=== PATIENT | male | born 1965 | race Caucasian/White ===

== ENCOUNTER → 2023-05-10 09:08 | Outpatient (BNVA) | payer MEDICAID, SELFPAY | PROVIDERS: Visit Provider Family Medicine Adult Medicine | DX: E11.9 Type 2 diabetes mellitus without complications (principal); I10 Essential (primary) hypertension | CPT/HCPCS: 80053; 80061; 83036; 84443; 85025 ==

== ENCOUNTER → 2023-08-12 14:08 | Outpatient (BNVA) | payer MEDICAID, SELFPAY | PROVIDERS: Referring Provider Family Medicine Adult Medicine; Visit Provider Internal Medicine Pulmonary Disease | DX: R06.09 Other forms of dyspnea (principal); F17.210 Nicotine dependence, cigarettes, uncomplicated; Z12.2 Encounter for screening for malignant neoplasm of respiratory organs | CPT/HCPCS: 99204 ==

== ENCOUNTER 2023-08-20 08:37 | Outpatient (CLI) | payer MEDICAID, SELFPAY ==
--- NOTE | 2023-08-20 09:15 | CT_ITS ---
WS: [id number] LDCT LUNG CANCER SCREENING TECHNIQUE: Noncontrast CT of the chest with coronal and sagittal reformatted images. CLINICAL INFORMATION: Cancer Screen COMPARISON: None. DLP: 53.99 mGy.cm DIvol: Mean CTDIvol: 0.80 (mGy) All CT scans at [facility] use at least one of these dose optimization techniques: automat ed exposure control; mA and/or kV adjustment per patient size (includes targeted exams where dose is matched to clinical indication); or iterative reconstruction. FINDINGS: Advanced chronic emphysematous changes. Spiculated LEFT hilar lesion measuring 10 x 11 mm. Additional suspicious LEFT perihilar lesion measuring 11 mm. Endobronchial thickening with micronodul arity involving the LEFT hilar bronchus. Perihilar nodules are suspicious for neoplasm and recommend further evaluation with PET/CT. Additional tiny 4 mm nodule RIGHT lower lobe near the diaphragm. A few tiny subpleural nodules LEFT l ower lobe. Mild aortic calcification. Normal caliber thoracic aorta. No mediastinal or hilar lymphadenopathy. No axillary lymphadenopathy. Subsegmental atelectasis RIGHT lower lobe. Partially visualized multicystic kidneys. Mild thoracic curve. IMPRESSION: CT/CT lung screening [id number] LUNG-RADS: 4B-Suspicious FOLLOW UP: PET/CT recommended
== END 2023-08-20 08:38 | disposition home or self-care (01) ==
LOC: RAD 08:37
PROVIDERS: Visit Provider Internal Medicine Pulmonary Disease
DX: Z12.2 Encounter for screening for malignant neoplasm of respiratory organs (principal); F17.210 Nicotine dependence, cigarettes, uncomplicated
CPT/HCPCS: 71271

== ENCOUNTER → 2023-09-23 08:11 | Outpatient (BNVA) | payer MEDICAID, SELFPAY | PROVIDERS: PCP Family Medicine Adult Medicine; Visit Provider Internal Medicine Pulmonary Disease | DX: Z12.2 Encounter for screening for malignant neoplasm of respiratory organs (principal); R06.09 Other forms of dyspnea; F17.219 Nicotine dependence, cigarettes, with unspecified nicotine-induced disorders | CPT/HCPCS: 99214 ==

== ENCOUNTER 2023-09-23 09:21 | Outpatient (CLI) | payer MEDICAID, SELFPAY | END 2023-09-23 09:22 | disposition home or self-care (01) | LOC: LAB 09:23 | PROVIDERS: PCP Family Medicine Adult Medicine; Visit Provider Internal Medicine Pulmonary Disease | DX: Z01.89 Encounter for other specified special examinations (principal) | CPT/HCPCS: 36415 ==

== ENCOUNTER 2023-09-24 08:48 | Outpatient (CLI) | payer MEDICAID, SELFPAY ==
[2023-09-24 09:19] VITALS: PULSE 86; RESP 18; O2SAT 99
[2023-09-24] MEDS: albuterol 2.5 mg/3 mL Neb INHALATION (09:19)
[2023-09-24 09:24] VITALS: PULSE 81
== END 2023-09-24 08:49 | disposition home or self-care (01) ==
LOC: RT 08:48
PROVIDERS: PCP Family Medicine Adult Medicine; Visit Provider Internal Medicine Pulmonary Disease
DX: J43.9 Emphysema, unspecified (principal); F17.210 Nicotine dependence, cigarettes, uncomplicated; R94.2 Abnormal results of pulmonary function studies
CPT/HCPCS: 94060; 94618; 94726; 94729; J7613

== ENCOUNTER 2023-12-20 08:34 | Outpatient (CLI) | payer MEDICAID, SELFPAY ==
--- NOTE | 2023-12-20 09:00 | CT_ITS ---
WS: [id number] CT chest wo con [id number] HISTORY: Abnormal CT with patient decline PET scan TECHNIQUE: Axial imaging performed through the thorax. Coronal and sagittal reformats are submitted. All CT scans at [facility] use at least one of these dose optimization techniques: automated exposure control; mA and/or kV adjustment per patient size (includes targeted exams where dose is mat ched to clinical indication); or iterative reconstruction. CONTRAST: None DLP: 279.41 mGy.cm COMPARISON: 08/20/2023 Lungs and central airway: Marked hyperexpansion from centrilobular emphysema. Numerous bulla and bleb are identified. Central LEFT upper lobe nodule is reidentified. This nodule has decreased in size no w measuring 7.5 mm. The additional subsolid nodule in the LEFT upper lobe has actually increased in s ize measuring 10 x 9 mm. Very mild bronchial thickening medial LEFT upper lobe, image 42 of series 4 measures 8 x 4 mm. No additional suspicious mass or nodule. Pleura: Normal. No pleural effusion. Heart and pericardium: Normal size heart with no pericardial effusion. Mediastinum and jessy: Hilar regions are poorly visualized without IV contrast. No adenopathy identifi ed. Vessels: Mild dilatation of the ascending aorta. Mild atherosclerosis. Normal size pulmonary artery. Chest wall and lower neck: No soft tissue masses. Upper abdomen: Nonobstructing calcifications upper pole LEFT kidney. Bilateral low-attenuation masses within each kidney. Largest mass from the superior anterior LEFT kidney measures 5.6 x 4.0 cm and is of increased density. No adrenal mass. Osseous structures: No destructive process. IMPRESSION: 1. Severe centrilobular emphysema. 2. Central LEFT upper lobe noncalcified nodule has slightly decreased in size now measuring 7.5 mm. Prior measurement 11 mm. 3. Spiculated LEFT upper lobe nodule has slightly increased in size and is now subsolid measuring 10 x 9 mm. Indeterminate part solid pulmonary nodule measuring 10 mm. For a part solid nodule >=6 mm, r ecommend CT at 3-6 months to confirm persistence. If unchanged and a solid component remains <6 mm, a nnual CT should be performed for 5 years. A persistent part solid nodule with a solid component >=6 m m is highly suspicious. 4. New mild bronchial thickening medial LEFT upper lobe. 5. Numerous low-attenuation masses associate with the superior poles of each kidney. These should be further evaluated for possible neoplasm. Cyst versus neoplasm versus complex cyst. Recommend ultraso und evaluation of the kidneys to evaluate for solid mass. 6. If PET/CT cannot be obtained recommend 3-month chest CT follow-up
== END 2023-12-20 08:35 | disposition home or self-care (01) ==
LOC: RAD 08:36
PROVIDERS: PCP Family Medicine Adult Medicine; Visit Provider Family Medicine Adult Medicine
DX: R91.8 Other nonspecific abnormal finding of lung field (principal); J43.2 Centrilobular emphysema; R91.1 Solitary pulmonary nodule; N28.89 Other specified disorders of kidney and ureter
CPT/HCPCS: 71250

== ENCOUNTER 2023-12-25 09:28 | Outpatient (CLI) | payer OTHER, SELFPAY ==
[2023-12-25 09:46] VITALS: PULSE 93; RESP 18; O2SAT 99
[2023-12-25] MEDS: albuterol 2.5 mg/3 mL Neb INHALATION (09:46)
[2023-12-25 09:51] VITALS: PULSE 95
== END 2023-12-25 09:29 | disposition home or self-care (01) ==
LOC: RT 09:28
PROVIDERS: PCP Family Medicine Adult Medicine; Visit Provider Dermatology
DX: J98.9 Respiratory disorder, unspecified (principal)
CPT/HCPCS: 94060; J7613

== ENCOUNTER 2024-01-03 11:03 | Outpatient (CLI) | payer MEDICAID, SELFPAY ==
--- NOTE | 2024-01-03 11:45 | US_ITS ---
WS: [id number] RENAL ULTRASOUND HISTORY: renal masses COMPARISON: None available. TECHNIQUE: 2-D and color Doppler imaging of the kidney submitted. Right kidney: 11.0 cm x 6.2 cm x 5.4 cm. Cortex: 0.9 cm Kidneys normal size but there is diffuse increased echogenicity and cortical atrophy. There are multi ple small cortical cysts. No solid masses. The largest cyst measures 2.2 x 2.7 x 2.1 cm in the superi or pole. Left kidney: 10.8 cm x 6.7 cm x 7.1 cm. Cortex: 1.1 cm Kidneys normal size. Poorly visualized and imaged kidney. There are multiple cysts identified. The la rgest in the superior pole measures 5.1 x 5.2 x 4.7 cm. The cortex is poorly visualized. No obstructi on. Increased echogenicity. Aorta: Normal. Urinary Bladder: Nondistended bladder. US/US renal BI* [id number] IMPRESSION: 1. Limited quality evaluation of the kidneys. 2. Kidneys appear normal size with diffuse cortical thinning and increased ech ogenicity suggesting chronic medical renal disease. LEFT kidney is very poorly visualized. 3. Bilateral renal cysts. No solid masses.
== END 2024-01-03 11:04 | disposition home or self-care (01) ==
LOC: RAD 11:03
PROVIDERS: PCP Family Medicine Adult Medicine; Visit Provider Family Medicine Adult Medicine
DX: N28.89 Other specified disorders of kidney and ureter (principal); N28.1 Cyst of kidney, acquired
CPT/HCPCS: 76770

== ENCOUNTER → 2025-01-28 09:30 | Outpatient (BNVA) | payer MEDICAID, SELFPAY | PROVIDERS: PCP Family Medicine; Visit Provider Family Medicine | DX: Z13.6 Encounter for screening for cardiovascular disorders (principal); Z12.5 Encounter for screening for malignant neoplasm of prostate | CPT/HCPCS: 80053; 80061; 84153; 84439; 84443; 85025 ==

== ENCOUNTER 2025-02-19 11:40 | Outpatient (CLI) | payer MEDICAID, SELFPAY ==
[2025-02-19] MEDS: iohexol 350 mg/mL 500 mL Btl (per mL) IV (13:13)
[2025-02-19] MEDS: iohexol 350 mg/mL 500 mL Btl (per mL) PO (13:13)
--- NOTE | 2025-02-19 14:15 | CT_ITS ---
WS: [id number] CT CHEST, ABDOMEN AND PELVIS WITH AND WITHOUT CONTRAST HISTORY: kidney and lung mass TECHNIQUE: Contiguous 3 mm axial imaging performed through the chest, abdomen and pelvis with IV contrast, oral contrast has been provided. Coronal and sagittal reformats chest. Coronal and sagittal reformats through the abdomen and pelvis. All CT scans at [facility] use at least one of these dose optimization techniques: automated exposure control; mA and/or kV adjustment per patient size (includes targeted exams where dose is matched to clinical indication); or iterative reconstruction. CONTRAST: Omnipaque 350; 100 mL IV. DLP: 1410.79 mGy.cm COMPARISON: 12/20/2023, 08/20/[address]: Moderate centrilobular emphysema. LEFT upper lobe well-circumscribed nodule has completely resolved. Subsolid opacification also in the LEFT upper lobe measuring 9 x 8 mm and is been stable since 08/20/2023. LEFT upper lobe bronchial wall thickening has resolved. The remaining lungs demonstrate mosaic attenuation from areas of air trapping. No additional mass or nodule. Mild atherosclerosis aorta. Normal sized pulmonary artery. Normal size heart. No pathologic lymph nodes. No pericardial or pleural effusions. Abdomen CT: Liver and gallbladder are negative. Spleen is normal. Negative pancreas. No adrenal mass. Numerous bilateral renal cysts of variable density. Majority of the cysts are simple cyst. The largest cyst from the anterior superior LEFT kidney measures 5.8 x 4.7 cm and is of variable density. Mixed attenuation mass does not significantly enhance with IV contrast. Similar high attenuation mass in the lower pole LEFT kidney does not enhance. Nonobstructing 12 mm calcification lower pole LEFT kidney. No enhancing masses are identified. Atherosclerosis aorta. No ascites or adenopathy. No GI tract obstruction. Normal appendix. Pelvic CT: No free fluid or adenopathy in the pelvis. Urinary bladder is negative. No destructive bone lesions. CT/CT ch abdpel wo/w [id number] IMPRESSION: 1. Complete resolution well-circumscribed LEFT upper lobe pulmonary nodule sin ce 12/20/2023. 2. Stable residual subsolid nodule LEFT upper lobe measures 9 x 8 mm. 3. Numerous bilateral nonenhancing renal cystic masses. No solid or enhancing mass identified. No obstruction of the kidney. 4. Nonobstructing 12 mm calcification lower pole LEFT kidney. 5. No GI tract obstruction.
== END 2025-02-19 11:41 | disposition home or self-care (01) ==
LOC: RAD 11:41
PROVIDERS: PCP Family Medicine; Visit Provider Family Medicine
DX: R91.8 Other nonspecific abnormal finding of lung field (principal); N28.89 Other specified disorders of kidney and ureter; J43.2 Centrilobular emphysema; I70.0 Atherosclerosis of aorta; N28.1 Cyst of kidney, acquired
CPT/HCPCS: 71260; 74178

== ENCOUNTER 2025-04-24 07:39 | Emergency (ER) | payer MEDICAID, SELFPAY ==
[2025-04-24] VITALS (16 sets, daily range): BP systolic 110–146; BP diastolic 66–97; PULSE 70–110; RESP 7–25; TEMP 36.8; O2SAT 85–95; BMI 20.9
--- NOTE | 2025-04-24 07:43 | ECG_ITS ---
[facility] Date: 2025-04-24 Pat Name: Crispin Yan Department: Room: Gender: Male Checking Clerk: : [id number] Requested By: Daya Watson Order Number: [id number] Comfort MD: Luke Ross M.D. Measurements Intervals [place] Rate: 99 P: 79 CA: 168 QRS: 2 QRSD: 81 T: 75 QT: 317 QTc: 407 Interpretive Statements SINUS RHYTHM WITH SINUS ARRHYTHMIA POSSIBLE LEFT ATRIAL ENLARGEMENT [-0.1mV P-WAVE IN V1/V2] LOW QRS VOLTAGE IN PRECORDIAL LEADS [QRS DEFLECTION < 1.0 mV IN CHEST LEADS] POSSIBLE RIGHT VENTRICULAR CONDUCTION DELAY [RSR (QR) IN V1/V2] No previous ECG available for comparison Electronically Signed On 04-25-2025 22:30:38 CDT by Luke Ross M.D. [email or web address]
--- NOTE | 2025-04-24 07:43 | XRR_ITS ---
PROCEDURE INFORMATION: Exam: XR Chest Exam date and time: 04/24/2025 7:51 AM Age: 60 years old Clinical indication: Pain; Cough and dyspnea; Chest pressure; Additional info: Cp TECHNIQUE: Imaging protocol: Radiologic exam of the chest. Views: 1 view. COMPARISON: CT ch abdpel wo/w [id number] 02/19/2025 1:04 PM FINDINGS: Lungs: Severe centrilobular emphysematous changes are present. There is no evidence of focal pulmonary consolidation. Left lung compressive atelectasis. Pleural spaces: There is a large left pneumothorax measuring 6.8 cm in the left lung apex. Heart/Mediastinum: Mild mediastinal shift to the right side. Bones/joints: Mild degenerative disease of bilateral acromioclavicular joints. XR/XR chest 1V portable [id number] IMPRESSION: Large left pneumothorax with mild mediastinal shift to the right.
--- NOTE | 2025-04-24 07:46 | PC.NURSE ---
PT SATING 88% ON ROOM AIR. PT PLACED ON 2L NASAL CANNULA AND SATING 92%.
--- OUTSIDE RECORDS SUMMARY | 2025-04-24 07:46 | XMS_ITS | Clinical Summary ---
Author Organization [facility] Facility Address [address] [address] Care Team Providers Care Chief Media Officer Name Role Phone Rocky Fuentes Primary Care Provider [phone] Encounters Date Type Department Care Team Description 03/12/2025 Office Communication [facility], [facility] [address] [place] [address] Jenny Russ MD 02/26/2025 Orders Only [facility], [facility] [address] [place] [address] Hypertensive chronic kidney disease, benign, with chronic kidney disease stage I through stage IV, or unspecified; Chronic kidney disease, stage 4 (severe) (HCC) 02/25/2025 Transcribe Orders [facility], [facility] [address] [place] [address] Rocky Fuentes Chronic kidney disease, stage 4 (severe) (HCC) (Primary Dx); Hypertensive chronic kidney disease, benign, with chronic kidney disease stage I through stage IV, or unspecified from Last 3 Months Social History Tobacco Use Types Packs/Day Years Used Date Smoking Tobacco: Never Assessed Sex and Gender Information Value Date Recorded Sex Assigned at Not on file Legal Sex Male 11:26 AM EDT Gender Identity Not on file Sexual Orientation Not on file Plan of Treatment Upcoming Encounters Date Type Department Care Team (Late st Contact Info) Description 09/15/2025 11:20 AM 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 Office Visit [facility], [facility] [address] [place] [address] Jenny Russ MD [address] [place] [address] Health Maintenance Due Date Last Done Comments Hepatitis B Vaccine (1 of 3 - 19+ 3-dose series) 02/09 Pneumococcal Vaccine: 50+ Years (1 of 2 - PCV) 986 Colorectal Cancer Screening: Annual FOBT 02/10/2016 Colorectal Cancer Screening: Colonoscopy 02/10/2016 Colorectal Cancer Screening: Sigmoidoscopy 02/10/2016 Influenza Vaccine (#1) 2025 Insurance Medicaid [place] ([id number]) Care Teams Chief Media Officer Relationship Specialty Start Date End Date Rocky Fuentes [address] [place] [address] [address] [place] [address] PCP - General 02/25/25
--- OUTSIDE RECORDS SUMMARY | 2025-04-24 07:46 | XMS_ITS | Encounter Summary ---
Author Organization [facility] Address [address] [facility] [address] [place] [address] Phone Care Team Providers Care Radio Broadcaster Name Role Phone Rocky Fuetnes Primary Care Provider [phone] Encounter Details Date Type Department Care Team (Late st Contact Info) Description 02/26/2025 Orders Only [facility] [address] [facility] [address] [place] [address] Hypertensive chronic kidney disease, benign, with chronic kidney disease stage I through stage IV, or unspecified; Chronic kidney disease, stage 4 (severe) (HCC) Social History Tobacco Use Types Packs/Day Years Used Date Smoking Tobacco: Never Assessed Sex and Gender Information Value Date Recorded Sex Assigned at Not on file Legal Sex Male 11:26 AM EDT Gender Identity Not on file Sexual Orientation Not on file documented as of this encounter Plan of Treatment Upcoming Encounters Date Type Department Care Team (Late st Contact Info) Description 09/15/2025 11: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 [facility] [address] [place] [address] Jenny Russ MD [address] [place] [address] documented as of this encounter Visit Diagnoses Diagnosis Hypertensive chronic kidney disease, benign, with chronic kidney disease stage I through stage IV, or unspecified Chronic kidney disease, stage 4 (severe) (HCC) documented in this encounter Care Teams Radio Broadcaster Relationship Specialty Start Date End Date Rocky Fuentes [address] [place] [address] [address] [place] [address] PCP - General 02/25/25 documented as of this encounter
--- OUTSIDE RECORDS SUMMARY | 2025-04-24 07:46 | XMS_ITS | Encounter Summary ---
Author Organization [facility] Address [address] [address] Phone Care Team Providers Care Plaster And Stucco Worker Name Role Phone Rocky Fuentes Primary Care Provider [phone] Reason for Referral * Consultation (Routine) - Authorized Specialty Diagnoses / Procedures Referred By Contac t Referred To Contact Nephrology Diagnoses Hypertensive chronic kidney disease, benign, with chronic kidney disease stage I through stage IV, or unspecified Chronic kidney disease, stage 4 (severe) (HCC) Rocky Fuentes [address] [place] [address] [address] [place] [address] Phone: tel: fax: Jenny Russ MD [address] [address] Phone: tel: fax: Referral ID Status Reason Start Date Expiration Date Visits Requested Visits Authorized [id number] Authorized Consult and Treat 02/25/2025 02/25/2026 1 1 Encounter Details Date Type Department Care Team (Late st Contact Info) Description 02/25/2025 Transcribe Orders [facility], 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 [address] [place] [id number] Jenny Russ MD [address] [facility] [address] [place] [address] Scheduled Referrals Name Type Priority Associated Diagnoses Order Schedule Ambulatory referral to Nephrology Outpatient Referral Routine Hypertensive chronic kidney disease, benign, with chronic kidney disease stage I through stage IV, or unspecified Chronic kidney disease, stage 4 (severe) (HCC) Expected: 02/26/2025, Expires: 02/25/2026 documented as of this encounter Visit Diagnoses Diagnosis Chronic kidney disease, stage 4 (severe) (HCC)- Primary Hypertensive chronic kidney disease, benign, with chronic kidney disease stage I through stage IV, or unspecified documented in this encounter Care Teams Plaster And Stucco Worker Relationship Specialty Start Date End Date Rocky Fuentes [address] [place] [address] PCP - General 02/25/25 documented as of this encounter
[2025-04-24 07:54] LABS: Hematocrit 43.5 % (37-53); Hemoglobin 14.30 g/dL (11.27-16.99); Mean Corpuscular HGB Conc 32.9 g/dL (30-55); Mean Corpuscular Hemoglobin 30.0 pg (27-33); Mean Corpuscular Volume 91.4 fl (82-101); Nucleated Red Blood Cells % 0 %; Platelet Count 309 10^3/cmm (157-399); Red Blood Count 4.76 10^6/uL (3.85-5.65); White Blood Count 16.26 10^3/uL (3.29-11.43)
--- NOTE | 2025-04-24 07:55 | W.ED.CHESTPA ---
HPI - Chest Pain General: Chief Complaint: Chest Pain Stated Complaint: chest pain Time Seen by Provider: 04/24/25 07:43 Source: patient and EMS Mode of arrival: EMS Limitations: no limitations History of Present Illness: 60-year-old male states that he woke up this morning having chest pain stating the pain was a sharp pain in the center of his chest states still like someone was punching him his vision was a 9 out of 10 he is given nitro and route he states his pain is now improved. States he had some nausea along with shortness of breath has a history of COPD he denies any increased cough or fever Associated symptoms: Reports dyspnea; Deny abdominal pain, fever(s), nausea or vomiting Related Data Previous Rx's ?Medication ?Instructions ?Recorded albuterol sulfate 90 mcg/actuation 1 inh inhalation QID PRN shortness 01/28/25 aerosol inhaler of breath or wheezing #8.5 grams dapagliflozin propanediol 5 mg 5 mg PO DAILY #90 tabs 01/28/25 tablet (Farxiga) lisinopril 40 mg tablet 40 mg PO DAILY #30 tabs 01/28/25 umeclidinium 62.5 mcg-vilanterol 1 inh inhalation DAILY #60 ea 03/29/25 25 mcg/actuation powdr for inhalation (Anoro Ellipta) Allergies Allergy/AdvReac Type Severity Reaction Status Date / Time No Known Allergies Allergy Verified 01/28/25 08:43 Review of Systems Const: Denies: fever(s), chills, body aches or change in appetite ENMT: Denies: throat pain or dental pain Card: Reports: chest pain Resp: Reports: dyspnea GI: Denies: abdominal pain, nausea, vomiting or diarrhea : Denies: dysuria Musc: Denies: neck pain or back pain Skin/Breast: Denies: rash Neuro: Denies: headache(s) Psych: Denies: depression Royal/Lymph: Denies: easy bruising All/Imm: Denies: urticaria [facility] ED PFSH: Medical History (Updated 04/24/25 @ 08:53 by Daya Watson MD) Severe tobacco use disorder CKD stage 3b, GFR 30-44 ml/min Smoking addiction Bilateral kidney masses Seen on chest CT 12/20/2023, US Renal ordered 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 Social History Smoking and tobacco/nicotine status: current every day tobacco/nicotine user cigarettes Packs smoked per day: 1.5 Years cigarettes smoked: 40 [ Other cigarette details: Started at 19] Quit status (tobacco/nicotine): not considering quitting Second hand smoke exposure: No Alcohol intake: former Substance/Drug Use: never Highest education level completed: 8th Grade Physical Exam Const: COMMON NORMALS: patient oriented x3 HENMT: COMMON NORMALS: normocephalic and atraumatic HEAD & SCALP: normocephalic and atraumatic Eye: COMMON NORMALS: Equal, round and reactive pupils present and EOMs intact bilaterally PUPIL: Yes Equal, round and reactive pupils present Neck/C-Spine: COMMON NORMALS: full ROM and supple Chest: COMMONS NORMALS: normal inspection of the chest and normal palpation of entire chest wall Resp: COMMON NORMALS: normal respiratory effort, No retractions and No use of accessory muscles OTHER: decreased breath sounds on left Cardio: COMMON NORMALS: regular rate, regular rhythm and No murmurs present (Cardio) RATE: regular rate RHYTHM: regular rhythm GI: COMMON NORMALS: Normal to inspection, nondistended, normoactive bowel sounds present, Soft to palpation, non-tender and no masses PALPATION: Yes Soft to palpation Extremity: COMMON NORMALS: normal to inspection and full ROM Neuro: COMMON NORMALS: patient oriented x3, moves all extremities and no focal motor deficits Psych: COMMON NORMALS: mental status grossly normal, Normal thought process present and cooperative THOUGHT PROCESS: Normal thought process present Skin: COMMON NORMALS: no rashes or lesions noted and no wounds GENERAL SKIN EXAM: no rashes or lesions noted Procedures Chest Tube Chest Tube 1: Chest Tube Location: left, mid axillary line and fifth interspace Size of Tube (cm): 14 Chest Tube Prep: Yes betadine prep and sterile drapes applied Local Anesthetic: lidocaine 1% Amount of anesthesia used (mL): 5 Incision Made With: #11 blade Post Procedure: sutured to skin Progress: pig tail catheter Course Vital Signs: Vital signs: Vital Signs Temperature 98.2 F 04/24/25 07:40 Pulse Rate 90 04/24/25 09:15 Respiratory Rate 14 04/24/25 09:15 Blood Pressure 140/86 04/24/25 09:15 Pulse Oximetry 85 L 04/24/25 09:15 Oxygen Delivery Me thod Nasal Cannula 04/24/25 07:45 Oxygen Flow Rate 2 04/24/25 07:45 MDM - Chest Pain Medical Decision Making Patient presents here with spontaneous pneumothorax did place a pigtail catheter with good reexpansion I spoke to surgeon here Dr. Miranda who recommended transfer due to no pulmonology coverage I did speak to [facility] and will transfer there for higher level of care Medical Records I reviewed the patient's medical records. Lab Data I reviewed the patient's lab results. 04/24/25 07:49 04/24/25 07:49 Radiology Impressions Chest X-Ray 04/24/25 08:39 IMPRESSION: Near-complete resolution of the left pneumothorax. Laboratory Results WBC 16.26 10^3/uL (3.29-11.43) H 04/24/25 07:49 RBC 4.76 10^6/uL (3.85-5.65) 04/24/25 07:49 Hgb 14.30 g/dL (11.27-16.99) 04/24/25 07:49 Hct 43.5 % (37-53) 04/24/25 07:49 MCV 91.4 fl (82-101) 04/24/25 07:49 MCH 30.0 pg (27-33) 04/24/25 07:49 MCHC 32.9 g/dL (30-55) 04/24/25 07:49 RDW 15.3 % (12.1-15.1) H 04/24/25 07:49 Plt Count 309 10^3/cmm (157-399) 04/24/25 07:49 MPV 10.4 fL (7.4-10.4) 04/24/25 07:49 Neut % (Auto) 67.1 % 04/24/25 07:49 Lymph % (Auto) 22.9 % 04/24/25 07:49 [place] % (Auto) 7.7 % 04/24/25 07:49 Eos % (Auto) 1.2 % 04/24/25 07:49 Baso % (Auto) 0.7 % 04/24/25 07:49 Neut # (Auto) 10.90 10^3/uL (1.8-7.7) H 04/24/25 07:49 Lymph # (Auto) 3.7 10^3/uL (0.8-4.8) 04/24/25 07:49 [place] # (Auto) 1.3 10^3/uL (0.2-0.9) H 04/24/25 07:49 Eos # (Auto) 0.2 10^3/uL (0.0-0.8) 04/24/25 07:49 Baso # (Auto) 0.1 10^3/uL (0.0-0.1) 04/24/25 07:49 Nucleated RBC % (auto) 0 % 04/24/25 07:49 Nucleated RBCs # 0.0 /100WBC 04/24/25 07:49 Sodium 136 mmol/L (136-145) 04/24/25 07:49 Potassium 4.4 mmol/L (3.5-5.1) 04/24/25 07:49 Chloride 102 mmol/L (98-107) 04/24/25 07:49 Carbon Dioxide 19 mmol/L (22-29) L 04/24/25 07:49 Anion Gap 19.4 (5-19) H 04/24/25 07:49 BUN 47 mg/dL (6-20) H 04/24/25 07:49 Creatinine 2.4 mg/dL (0.7-1.2) H 04/24/25 07:49 GFR Calculation 27.9 mL/min (90-130) L 04/24/25 07:49 Glucose 190 mg/dL (65-115) H 04/24/25 07:49 Calculated Osmolality 299 mOsm/kg (285-295) H 04/24/25 07:49 Calcium 8.8 mg/dL (8.5-10.5) 04/24/25 07:49 Total Bilirubin 0.2 mg/dL (0.15-1.2) 04/24/25 07:49 AST 32 U/L (0-40) 04/24/25 07:49 ALT 40 U/L (0-41) 04/24/25 07:49 Alkaline Phosphatase 92 U/L (40-130) 04/24/25 07:49 Troponin T Baseline 16 ng/L (0-15) H 04/24/25 07:49 Total Protein 6.7 g/dL (6.6-8.7) 04/24/25 07:49 Albumin 4.3 g/dL (3.5-5.2) 04/24/25 07:49 Globulin 2.4 g/dL (1.3-4.6) 04/24/25 07:49 Lipase 91 U/L (13-60) H 04/24/25 07:49 All radiology interpretation(s) finalized by discharge EKG Data EKG 1: I personally reviewed and interpreted this EKG as follows: EKG interpretation date: 04/24/25 EKG interpretation time: 07:45 Interpretation: nsr hr [address] elevation qrs 81 qtc 373 Discharge Plan Discharge Patient Disposition: Xfer Short-Term Hosp Clinical Impression: Pneumothorax Condition: Stable Referrals: Rocky Fuentes MD [Primary Care Provider, [facility]] Print Language: Greenlandic Coding Level of Care Code ED Ballet Teacher for [facility]
[2025-04-24 08:15] LABS: Troponin(5th) Baseline 16 ng/L (0-15)
[2025-04-24 08:17] LABS: Alanine Aminotransferase 40 U/L (0-41); Albumin Level 4.3 g/dL (3.5-5.2); Alkaline Phosphatase 92 U/L (40-130); Anion Gap 19.4 (5-19); Aspartate Amino Transferase 32 U/L (0-40); Blood Urea Nitrogen 47 mg/dL (6-20); Calcium 8.8 mg/dL (8.5-10.5); Carbon Dioxide 19 mmol/L (22-29); Chloride 102 mmol/L (98-107); Creatinine Clr Calc Pharmacy 34.3544; Globulin 2.4 g/dL (1.3-4.6); Glucose 190 mg/dL (65-115); Lipase 91 U/L (13-60); Osmolality Calculated 299 mOsm/kg (285-295); Potassium 4.4 mmol/L (3.5-5.1); Sodium 136 mmol/L (136-145); Total Protein 6.7 g/dL (6.6-8.7)
[2025-04-24] MEDS: HYDROmorphone 0.5 MG/0.5 ML INJ 1 MG IVP ×2 (08:36→11:43)
--- NOTE | 2025-04-24 08:39 | XRR_ITS ---
PROCEDURE INFORMATION: Exam: XR Chest Exam date and time: 04/24/2025 8:44 AM Age: 60 years old Clinical indication: Shortness of breath; Additional info: Lt pneumothorax; Post lt chest tube insertion TECHNIQUE: Imaging protocol: Radiologic exam of the chest. Views: 1 view. COMPARISON: CR (CHEST, ) 04/24/2025 7:51 AM FINDINGS: Tubes, catheters and devices: Left pleural pigtail drain is seen in the left mid chest. Lungs: Left lower lung zone atelectasis. There is no evidence of focal pulmonary consolidation. Pleural spaces: Near-complete resolution of the left pneumothorax. Heart/Mediastinum: Unremarkable. No cardiomegaly. Vasculature: There are aortic arch calcifications. Bones/joints: Mild curvature of the thoracic spine convex to the right. XR/XR chest 1V portable [id number] IMPRESSION: Near-complete resolution of the left pneumothorax.
[2025-04-24] MEDS: LORazepam 1 MG/0.5 ML injection 0.5 MG IVP (09:12)
[2025-04-24] MEDS: morphine 4 mg/mL SDV 1 mL IVP (09:12)
[2025-04-24 09:56] LABS: Troponin 5 2HR 22.19 ng/L (0-15); Troponin 5 2HR Delta 6.19 ABS# (0-10)
--- NOTE | 2025-04-24 09:56 | ECG_ITS ---
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 Measurements Intervals [place] Rate: 75 P: 74 AL: 171 QRS: -2 QRSD: 92 T: 73 QT: 368 QTc: 412 Interpretive Statements SINUS RHYTHM POSSIBLE RIGHT VENTRICULAR CONDUCTION DELAY [RSR (QR) IN V1/V2] Compared to ECG 04/24/2025 07:45:50 NO SIGNIFICANT CHANGE Electronically Signed On 04-26-2025 14:02:21 CDT by Luke Ross M.D. [email or web address]
== END 2025-04-24 11:46 | disposition short-term general hospital (02) ==
PROVIDERS: Emergency Provider Emergency Medicine; PCP Family Medicine
DX: J93.9 Pneumothorax, unspecified (principal); F17.210 Nicotine dependence, cigarettes, uncomplicated; E11.22 Type 2 diabetes mellitus with diabetic chronic kidney disease; I12.9 Hypertensive chronic kidney disease with stage 1 through stage 4 chronic kidney disease, or unspecified chronic kidney disease; N18.32 Chronic kidney disease, stage 3b; J44.9 Chronic obstructive pulmonary disease, unspecified
CPT/HCPCS: 71045; 80053; 83690; 84484; 85025; 93005; 96374; 96375; 96376; 99285; J1171; J2060; J2270

== ENCOUNTER 2025-05-29 08:21 | Emergency (ER) | payer MEDICAID, SELFPAY ==
--- OUTSIDE RECORDS SUMMARY | 2025-04-24 13:46 | XMS_ITS | Encounter Summary ---
Author Organization [facility] Address [address] [place] [address] Care Team Providers Care Gluing Machine Feeder Name Role Phone Unavailable Primary Care Provider Unavailabl e Reason for Referral * Eval and Treat (Routine) - Closed Specialty Diagnoses / Procedures Referred By Delmar t Referred To Contact Diagnoses Secondary spontaneous pneumothorax Procedures NE OFFICE/OUTPATIENT ESTABLISHED MOD MDM 30 MIN NE OFFICE/OUTPATIENT NEW MODERATE MDM 45 MINUTES Marie Eduardo MD [address] [place] [address] Phone: tel: fax: Referral ID Status Reason Start Date Expiration Date Visits Re quested Visits Authorized [id number] Closed 05/26/2025 05/26/2026 1 1 Reason for Visit * Auth/Cert (Routine) Specialty Diagnoses / Procedures Referred By Delmar t Referred To Contact Internal Medicine Diagnoses Spontaneous Pneumothorax Left (6.8 cm) CHEST TUBE Ebony Aragon MD [address] [place] [address] Phone: tel: fax: [facility] 3D Medical Telemetry [address] [place] [address] Phone: tel: fax: Referral ID Status Reason Start Date Expiration Date Visits Re quested Visits Authorized [id number] 1 1 Encounter Details Date Type Department Care Team (Late st Contact Info) Description 04/24/2025 1:46 PM CDT - 05/26/2025 10:49 AM CDT Hospital Encounter [facility] 4D Surgery Heart Lung [address] [place] [address] Ebony Aragon MD [address] [place] [address] Rocky Gibson Dani, [address] [place] [address] Taryn Lai MD [address] [place] [address] Antolin Begum, [address] [place] [address] Maxine Alvarado MD [address] [place] [address] Edwin Beauchamp MD [address] [place] [address] Shania Posadas MD [address] [facility] [place] [address] Jerry Moreno MD [address] [place] [address] Piyush Niño MD [address] [place] [address] Harmeet Kim MD [address] [place] [address] Duc Camp MD [address] [place] [address] Roel Andujar MD [address] [place] [address] Marie Eduardo MD [address] [place] [address] Secondary spontaneous pneumothorax Discharge Disposition: Home or Self Care Social History Tobacco Use Types Packs/Day Years Used Date Smoking Tobacco: Every Day Cigarettes 0.5 41.8 Started: 1983 Smokeless Tobacco: Never Tobacco Cessation:Ready to Q uit: No; Counseling Given: No Alcohol Use Standard Drinks/Week Comments Never 0 (1 standard drink = 0.6 oz pur e alcohol) Feeling Safe Answer Date Recorded Are you in a relationship wi th someone who hurts you emotionally and/or physically? No 04/24/2025 Food Insecurity Answer Date Recorded Patient needs follow up regardin 04/24/2025 Transportation Needs Answer Date Record ed Patient needs follow up regardin 04/24/2025 Utility Needs Answer Date Recorded Patient needs follow up regardin 04/24/2025 Sex and Gender Information Value Date Recorded Sex Assigned at Not on file Legal Sex Male 1:23 AM [employer] Gender Identity Not on file Sexual Orientation Not on file documented as of this encounter Last Filed Vital Signs Vital Sign Reading Time Taken Comments Blood Pressure 152/102 05/26/2025 7:40 AM CDT Pulse 83 05/16/2025 7:10 PM CDT Temperature 37.2 C (98.9 F) 05/26/2025 7:40 AM CDT Respiratory Rate 16 05/26/2025 7:45 AM CDT Oxygen Saturation 91% 05/19/2025 11:53 PM CDT Inhaled Oxygen Concentration - - Weight 74.5 kg (164 lb 3.9 oz) 05/26/2025 3:30 A M CDT Height 180.3 cm (5' 11 ) 04/24/2025 3:22 PM CDT Body Mass Index 22.91 04/24/2025 3:22 PM CDT documented in this encounter Discharge Summaries * Marie Eduardo MD - 05/26/2025 10:21 AM CDT [place] Hospitalist- Discharge Summary Froylan Yan 60 y.o. male 1965 CSN: [id number] Date of Admission: 04/24/2025 Date of Discharge: 05/26/2025 LOS: 32 days Discharging Physician: Marie Eduardo MD PCP: No primary care provider on file. Code Status at Discharge: Full Code Dispo: Home Labs and studies from this hospitalization needing follow up: CBC and Basic Metabolic Panel (BMP) in 1 week Follow up with PCP: Follow-up: You must follow up with No primary care provider on file. in 3-5 days Follow up with Consultants: With CTS and nephrology Discharge Condition: stable Primary Discharge Diagnosis: Secondary spontaneous pneumothorax Other Active medical issues also addressed during this admission: Active Hospital Problems Diagnosis Hypertension, essential Moderate protein-calorie malnutrition Chronic kidney disease, stage IV (severe) (CMS/HCC) Acute respiratory failure with hypoxia (CMS/HCC) Secondary spontaneous pneumothorax Cigarette smoker Elevated serum creatinine Hyperkalemia Resolved Hospital Problems No resolved problems to display. HOSPITAL COURSE: Please see H and P for full details on admission, symptoms and initial care. Froylan Yan is a 60-year-old male with a history of cigarette smoking, hypertension, and stageIV chronic kidney disease who was admitted to [facility] on 04/24/2025 for evaluation and management of a secondary spontaneous pneumothorax after presenting with sudden onset of left-sided chest pain and shortness of breath. 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 During hospitalization, he experienced recurrent large left pneumothorax and partial lung collapse after the initial chest tube became dislodged, necessitating ICU transfer and emergent repeat chest tube placement, confirmed by stat chest x-ray and managed with continuous wall suction and serial imaging. Pulmonology and cardiothoracic surgery were consulted for ongoing management of the persistent air leak and subcutaneous emphysema, with daily chest x-rays to monitor lung re- expansion and tube position. Despite chest tubemanagement, he continued to have a persistent expiratory air leak and subcutaneous emphysema, and underwent bedside talc pleurodesis on 05/01/2025, which did not resolve the air leak. Endobronchial valve placement was attempted on 05/04/2025 but was unsuccessful due to collateral ventilation, as determined by intra-procedural balloon occlusion testing during bronchoscopy. Blood patch therapy was performed on 05/06/2025, with continued monitoring via daily chest x-ray and serial clinical assessment. He required supplemental oxygen, initially up to 15 L, which was gradually weaned; he remained on low-flow nasal cannula with SpO2 maintained between 88- 94% until late in the admission, when he was able to ambulate with chest tubes in place and maintain SpO2 at 91%. On 05/14/2025, a new apical largebore chest tube was placed due to worsening pneumothorax, resulting in radiographic improvement; both chest tubes were maintained to suction, with the pigtail intermittently clamped and returned to water seal as clinically indicated. Suction was gradually reduced from -30 mmHg to -10 mmHg as the air leak resolved, and by 05/22/2025, no air leak was present in either chest tube, which were then placed on water seal with plans for removal and post-removal monitoring for recurrence. On 05/24/2025, the left pleural pigtail catheter was removed at bedside after a successful clamp trial and stable chest x-ray; the left straight pleural chest tube remained on water seal and was subsequently removed on 05/25/2025 after further clamp trial and stable imaging, with no evidence of pneumothorax on post-removal chest x-ray. Cardiothoracic surgery signed off after tube removal, and outpatient follow-up was arranged. Transfer to a tertiary center was considered but ultimately not pursued after case discussion with outside thoracic surgery, as no additional interventions were available; the patient declined transfer to a long-term acute care hospital due to distance and preference for home discharge. Throughout the admission, moderate protein-calorie malnutrition was addressed with oral nutrition supplements and a potassium-controlled diet; his oral intake was adequate and weight remained stable at 74.5 kg on 05/26/2025. Renal function was monitored closely due to underlying stage IV chronic kidney disease,with nephrology consultation and ongoing laboratory surveillance; creatinine remained near baseline(1.75-1.99) and potassium was managed medically, including holding lisinopril and administration ofLokelma and intravenous fluids for hyperkalemia. Hypertension was managed with continuation of homelisinopril until held for hyperkalemia, and as-needed IV labetalol. He developed leukocytosis and left lower lobe consolidation late in the admission, for which ceftriaxone was administered for five days; pneumonia was not considered an active diagnosis at discharge. Heparin was used for DVT prophylaxis throughout the hospitalization. On 05/19/2025, he reported numbness in the left hand in the ulnar nerve distribution without motor weakness, and gabapentin was started. By 05/26/2025, he was alert, ambulating, and in no distress, with stable vital signs and no air leakor pneumothorax on imaging; discharge was arranged to home with outpatient follow-up with cardiothoracic surgery, nephrology, pulmonology, and primary care. MEDICATION RECONCILIATION: Current and discharge medications reviewed and reconciled: Yes Consultants: IP CONSULT TO PULMONOLOGY IP CONSULT TO NEPHROLOGY IP CONSULT TO IV TEAM Procedures performed: Procedure(s) (LRB): BRONCHOSCOPY (N/A) DISCHARGE MEDICATIONS: Medication List START taking these medications albuterol sulfate 90 mcg/Actuation inhaler Take 2 Puffs by inhalation every 6 hours as needed for Shortness of Breath (home regimen with spacer). Signed by: Dr. Gladys Moreno Refills: 0 amLODIPine 5 mg tablet Commonly known as: NORVASC Take 1 Tablet (5 mg) by mouth daily. Signed by: Dr. Mona Eduardo Quantity: 30 Tablet Refills: 0 gabapentin 300 mg capsule Commonly known as: NEURONTIN Take 1 Capsule (300 mg) by mouth every 8 hours. Signed by: Dr. Mona Eduardo Quantity: 90 Capsule Refills: 0 nicotine 7 mg/24 hr patch Commonly known as: NICODERM CQ Apply 1 Patch to skin as directed daily. Signed by: Dr. Gladys Moreno Refills: 0 umeclidinium 62.5 mcg/actuation Disk with Device Commonly known as: INCRUSE ELLIPTA Take 1 Puff by inhalation daily. Signed by: Dr. Gladys Moreno Refills: 0 STOP taking these medications Farxiga 5 mg Tablet Generic drug: dapagliflozin propanediol lisinopriL 40 mg tablet Commonly known as: PRINIVIL Where to Get Your Medications These medications were sent to [facility] [place] [address] [place] [address] [address] [facility] [address] Hours: M-F 6890-9833 Sat 3569-9784 Sun 8218-9326 amLODIPine 5 mg tablet gabapentin 300 mg capsule Information about where to get these medications is not yet available Ask your nurse or doctor about these medications albuterol sulfate 90 mcg/Actuation inhaler nicotine 7 mg/24 hr patch umeclidinium 62.5 mcg/actuation Disk with Device Future Appointments Date Time Provider Department Center 05/27/2025 5:[address] [facility] [address] [facility] Activity level: up as tolerated Diet: DIET RENAL Wound Care: Not Applicable DISCHARGE EXAM: BP (!) 152/102 Pulse 83 Temp 98.9 ??F (37.2 ??C) (Temporal) Resp 16 Ht 5' 11 (1.803 m) Wt 74.5 kg (164 lb 3.9 oz) SpO2 91% BMI 22.91 kg/m?? Last documented weight: Weight: 74.5 kg (164 lb 3.9 oz) (05/26/25 0330) General: alert, in no distress Neurologic: Grossly normal HEENT: atraumatic, Normocephalic, without obvious abnormality Lungs: clear to auscultation bilaterally, normal respiratory effort Heart: normal rate, regular rhythm, normal S1, S2, no murmurs, rubs, clicks or gallops Abdomen: Soft, non-tender. Bowel sounds normal. No masses, no organomegaly. Extremities: extremities normal, atraumatic, no cyanosis or edema, intact distal pulses, moves all extremities equally, no edema, redness or tenderness in the calves or thighs, normal strength, normal tone Skin: negative Home Healthcare Is this patient being discharged with Home Health? No Total time spent on discharge services today including examining and educating the patient and available family members, writing prescriptions and reviewing the discharge medication list, documentingthis discharge summary and coordinating outpatient care and follow up required 35 minutes. documented in this encounter Discharge Instructions * Attachments The following attachments cannot be sent through Care Everywhere. * Gabapentin (Maldivian) * Nicotine Transdermal Patch (Maldivian) * Albuterol (Maldivian) * Umeclidinium Oral Inhalation (Maldivian) * Collapsed Lung (Maldivian) * Chest Tube Removal: Post op (Maldivian) documented in this encounter Medications at Time of Discharge gabapentin (NEURONTIN) 300 mg capsule Take 1 Capsule (300 mg) by mouth every 8 hours. 90 Capsule 05/26/2025 amLODIPine (NORVASC) 5 mg tablet Take 1 Tablet (5 mg) by mouth daily. 30 Tablet 05/26/2025 umeclidinium (INCRUSE ELLIPTA) 62.5 mcg/actuation Disk with Device Take 1 Puff by inhalation daily. 05/11/2025 nicotine (NICODERM CQ) 7 mg/24 hr patch Apply 1 Patch to skin as directed daily. 05/11/2025 albuterol sulfate HFA 90 mcg/actuation aerosol inhaler Take 2 Puffs by inhalation every 6 hours as needed for Shortness of Breath (home regimen with spacer). 05/10/2025 documented as of this encounter Progress Notes * Bhavana Cotter RN - 05/26/2025 10:25 AM CDT Froylan Yan will be discharged via wheelchair to home. Froylan Yan is being transported viacab. Discharge information provided. All lines, IV access & tele removed. * Wyatt Tarango PA - 05/26/2025 8:29 AM CDT Cardiothoracic Surgery Progress Note Admit Date: 04/24/2025 Hospital day: LOS: 32 days SUBJECTIVE: Patient sitting up to side of bed. States he feels OK this morning, awaiting breakfast. No air leakin either CT with inspiration/expiration/coughing/forced expiration. 05/03: Chest tube with air leak. Will discuss with Dr. Trammell. 05/04: Left pleural chest tube (pigtail) with air leak, (+) subcutaneous emphysema along left chest wall, patient reports tenderness on exam. Pigtail kinked - adjusted. Repeat CXR. 05/05: LpCT (pigtail) remains w air leak, (+) subcutaneous emphysema and muted phonation. Tendernessto left side remains. EBV unable to be placed yesterday, patient not candidate. 05/06: LpCT (pigtail) remains w air leak, (+) subcutaneous emphysema and muted phonation. Tendernessto left side remains. IR to exchange/upside LpCT today, will attempt blood patch once new CT is in place. Wean oxygen off, goal SpO2 88-94%. 05/07: LpCT (pigtail) remains w air leak, (+) subcutaneous emphysema. Blood patch performed yesterday. 05/08: LpCT (pigtail) with continuous air leak, subQ emphysema. 05/09: LpCT (pigtail) with continuous air leak, subQ emphysema. Addendum: patient have more subQ air on the left shoulder and neck area, with a bit change of voice. Still on room air sat 95%. Pigtail in the same position. Suction placed to -30mmHg. 05/10: LpCT (pigtail) with continuous air leak on -30mmHg suction, muted phonation. Recommend transfer to [place]. 05/11: LpCT (pigtail) with continuous air leak, on -30mmHg suction, muted phonation. Transfer attempted to [place]. Dr. Atkins and Dr. Weller discussed case, to additional options to offer at [place]. 05/12: LpCT (pigtail) continues to have air leak, suction weaned to -20mmHg per Dr. Atkins, repeat CXR 1145. 05/13/: cxr with increased ptx, LpCT (pigtail) continues to have air leak, suction to -30mmHg per Dr. Atkins 05/14: cxr worsened ptx, placed surgical chest tube Addendum: keep large chest tube to -30 suction, keep pigtail to water seal for now. CXR stable 05/15: + air leak on chest tube, subQ emphysema present. Clamped pig tail today, will repeat chest xray in 4 hours, unclamped due to worsening pneumothorax on CXR 05/16: + air leak on chest tube, subQ emphysema present. Continue pig tail today 05/17: +air leak on chest tube, subQ emphysema present. Continue both tubes today, consider transferto LTAC for chest tube management 05/18: + air leak, continue both tubes on -30 suction, may go to Lt[facility] 05/19: air leak improving, subQ air improving, continue both chest tubes to -20 suction 05/20: Air leak improving. CXR stable. Continue chest tube to suction. 05/21: CXR stable. Suction turned down to -10. No air leak present this AM. 05/22: CXR stable, suction remains at -10mmHg, no air leak in either CT this morning. Keep CT x2 to suction at -10mmHg. Improvement in SQ air, voice stronger. 05/23: CXR stable, no air leak. CT x2 placed to waterseal, will repeat CXR at 12PM stable, CT x 2 remain on water seal. 05/24: CXR stable, no air leak. Clamp trial to left pigtail CT at 0730, repeat CXR at 1130, if stable will plan to remove pigtail. Left straight pleural CT remains on water seal today. 05/25: cxr stable, no air leak, clamp trial 05/26: cxr stable, chest tube removed 05/25 OBJECTIVE: BP (!) 152/102 Pulse 83 Temp 98.9 ??F (37.2 ??C) (Temporal) Resp 16 Ht 5' 11 (1.803 m) Wt 74.5 kg (164 lb 3.9 oz) SpO2 91% BMI 22.91 kg/m?? Intake/Output Summary (Last 24 hours) at 05/26/2025 0829 Last data filed at 05/26/2025 0701 Gross per 24 hour Intake 3209.13 ml Output 3 ml Net 3206.13 ml Last documented weight: Weight: 74.5 kg (164 lb 3.9 oz) (05/26/25 0330) Weight: 75.6 kg (166 lb 10.7 oz) (04/24/25 1522) General appearance: Awake, alert, oriented to person, place, time and situation. No acute distress. Lungs: Respirations unlabored, lungs clear with equal air movement bilaterally. Heart: S1/S2 audible, regular rate, regular rhythm, no clicks, rubs, murmurs. Extremities: moves all extremities without difficulty, no edema Neurologic: grossly normal Data Reviewed: CBC: Recent Labs 05/25/25 0538 WBC 9.6 HGB 11.7* HCT 35.1* PLT 541* MCV 89.5 BMP: Recent Labs 05/24/25 0824 05/24/25 1413 05/25/25 0538 05/25/25 1334 05/26/25 0400 GLUCOSE 123* -- 102* -- 103* BUN 43* -- 39* -- 36* CREAT 1.93* -- 1.82* -- 1.88* NA 134* -- 137 -- 136 K 5.6* 5.3* 5.4* 4.8 5.1 CL 100 -- 102 -- 105 CO2 23 -- 22 -- 20* ANIONGAP 11 -- 13 -- 11 CA 9.7 -- 9.3 -- 8.9 Hemoglobin A1C: No results found for: HGBA1C , NCSI1RMCK LFTs: No results for input(s): ALKPHOS , ALT , AST , BILITOTAL , ALBUMIN , AMYLASE , LIPASE in the last 72 hours. Coagulation: No results for input(s): PT , INR , APTT in the last 72 hours. ASSESSMENT: Active Hospital Problems Diagnosis Hypertension, essential Moderate protein-calorie malnutrition Chronic kidney disease, stage IV (severe) (CMS/HCC) Acute respiratory failure with hypoxia (CMS/HCC) Secondary spontaneous pneumothorax Cigarette smoker Elevated serum creatinine Hyperkalemia Resolved Hospital Problems No resolved problems to display. CXR IMPRESSION: Please see below. Exam: XR CHEST PA OR AP 1 VW Date/Time of Exam: 05/26/2025 5:29 AM Reason For Exam: Pneumothorax. Diagnosis: See Reason for Exam. Comparison: 05/25/2025. Findings: Apical lordotic projection obtained. The left chest tube has been removed. Stable cardiomediastinal silhouette with persistent small partially loculated left pleural effusion with left basilar and left midlung atelectasis versus airspace disease. The right lung is grossly clear. No right pleural effusion or definite pneumothorax is identified. Persistent subcutaneous emphysema about the lateral left chest wall and of the supraclavicular soft tissues present. Impression: 1. Interval removal of left sided chest tube with persistent loculated left pleural effusion with left basilar atelectasis versus airspace disease. Negative for definite pneumothorax. Exam Ended: 05/26/25 05:29 CDT PLAN: Left pneumothorax -chest tube removed 05/25 -CTS will sign off 1 week follow up with Dr. [facility] with cxr [facility] Cosigned by Puma Atkins MD at 05/26/2025 1:47 PM CDT * Marie Eduardo MD - 05/25/2025 10:27 AM CDT Images from the original note were not included. Your life is our life's work [facility] Hospitalist/Hospital Medicine Progress Note LOS: 31 days Room/Bed: [facility]/ Patient name: Froylan Yan Date of : 1965 HOSPITAL COURSE SUMMARY: Froylan Yan is a 60-year-old male with a history of cigarette smoking, hypertension, and chronic kidney disease who was admitted to [facility] on 04/24/2025 for evaluation and management of a secondary spontaneous pneumothorax after presenting with sudden onset of left-sided chest pain and shortness of breath. 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 During hospitalization, he experienced recurrent large left pneumothorax and partial lung collapse after the initial chest tube became dislodged, necessitating ICU transfer and emergent repeat chest tube placement, confirmed by stat chest x-ray and managed with continuous wall suction and serial imaging. Pulmonology and cardiothoracic surgery were consulted for ongoing management of the persistent air leak and subcutaneous emphysema, with daily chest x-rays to monitor lung re-expansion and tubeposition. Despite chest tube management, he continued to have a persistent expiratory air leak and subcutaneous emphysema, and underwent bedside talc pleurodesis on 05/01/2025, which did not resolve the air leak. Endobronchial valve placement was attempted on 05/04/2025 but was unsuccessful due to collateral ventilation, as determined by intra-procedural balloon occlusion testing during bronchoscopy.Blood patch therapy was performed on 05/06/2025, with continued monitoring via daily chest x-ray andserial clinical assessment. He required supplemental oxygen, initially up to 15 L, which was gradually weaned; he remained on low-flow nasal cannula with SpO2 maintained between 88- 94% until late in the admission, when he was able to ambulate with chest tubes in place and maintain SpO2 at 91%. On 05/14/2025, a new apical largebore chest tube was placed due to worsening pneumothorax, resulting in radiographic improvement; both chest tubes were maintained to suction, with the pigtail intermittently clamped and returned to water seal as clinically indicated. Suction was gradually reduced from -30 mmHg to -10 mmHg as the air leak resolved, and by 05/22/2025, no air leak was present in either chest tube, which were then placed on water seal with plans for removal and post-removal monitoring for recurrence. Transfer to a tertiary center was considered but ultimately not pursued after case discussion with outside thoracic surgery, as no additional interventions were available; the patient declined transfer to a long-term acute care hospital due to distance and preference for home discharge. Additional issues addressed during the admission included moderate protein- calorie malnutrition, asassessed by the nutrition team, with initiation of oral nutrition supplements and a potassium-controlled diet; his oral intake was adequate and weight remained stable at 75.7 kg on 05/21/2025. Renal function was monitored closely due to underlying stage IV chronic kidney disease, with nephrology consultation and ongoing laboratory surveillance; creatinine remained near baseline (1.75-1.99) and potassium was managed medically. Hypertension was managed with continuation of home lisinopril. He developed leukocytosis and left lower lobe consolidation late in the admission, for which ceftriaxone was administered for five days. Heparin was used for DVT prophylaxis throughout the hospitalization. On 05/19/2025, he reported numbness in the left hand in the ulnar nerve distribution without motor weakness, and gabapentin was started. 05/23 patient was evaluated by CTS who noted the chest x-ray to be stable with no air leaks, placed chest tubes to waterseal with plan to repeat chest x-ray at noon. Analgesic regimen adjusted. Antihypertensive regimen adjusted. Discussed plan of care with patient and RN 05/24 cardiothoracic surgery proceeding with clamping trials to evaluate discontinuing chest tubes. Hyperkalemia; lisinopril held, Lokelma, IVF and renal diet ordered. Monitoring potassium level closely. A.m. labs ordered. Discussed plan of care with patient and RN at bedside 05/25 CTS continuing with clamp trial. Improved hyperkalemia; Santino ordered and continuing IVF. Monitoring potassium level closely. A.m. labs ordered. Discussed plan of care with patient and RN at bedside Consultants: IP CONSULT TO PULMONOLOGY IP CONSULT TO NEPHROLOGY IP CONSULT TO IV TEAM SUBJECTIVE: Patient reports to be doing well. Denies chest pain or shortness of breath OBJECTIVE: Temp (24hrs), Av.3 ??F (36.8 ??C), Min:97.7 ??F (36.5 ??C), Max:99.1 ??F (37.3 ??C) BP 128/77 Pulse 83 Temp 97.7 ??F (36.5 ??C) (Temporal) Resp 22 Ht 5' 11 (1.803 m) Wt 73.9 kg (162 lb 14.7 oz) SpO2 91% BMI 22.72 kg/m?? Intake/Output Summary (Last 24 hours) at 05/25/2025 1027 Last data filed at 05/25/2025 1000 Gross per 24 hour Intake 1280 ml Output 1100 ml Net 180 ml Last documented weight: Weight: 73.9 kg (162 lb 14.7 oz) (05/25/25 0422) EXAM: General: alert, in no distress Neurologic: Grossly normal HEENT: atraumatic, Normocephalic, without obvious abnormality Lungs: clear to auscultation bilaterally, normal respiratory effort Heart: normal rate, regular rhythm, normal S1, S2 Abdomen: Soft, non-tender. Bowel sounds normal. Extremities: extremities normal, atraumatic, no cyanosis or edema, intact distal pulses, moves all extremities equally, no edema, redness or tenderness in the calves or thighs, normal strength, normal tone Skin: negative LABORATORY: Recent Labs 05/25/25 0538 WBC 9.6 HGB 11.7* HCT 35.1* PLT 541* Recent Labs 05/23/25 0705 05/24/25 0824 05/24/25 1413 05/25/25 0538 NA 132* 134* -- 137 K 5.2* 5.6* 5.3* 5.4* CL 99 100 -- 102 CO2 21* 23 -- 22 CA 9.2 9.7 -- 9.3 BUN 36* 43* -- 39* CREAT 1.99* 1.93* -- 1.82* GLUCOSE 110* 123* -- 102* No results for input(s): TOTALPROTEIN , ALBUMIN , BILITOTAL , ALKPHOS , AST , ALT in the last 72 hours. No results for input(s): INR , PT in the last 72 hours. Invalid input(s): PTT No results for input(s): BASETROP , 2HRTROP , DELTA , 6HRTROP in the last 72 hours. Diagnostic testing reviewed by me: Medications were reviewed by me. Current Facility-Administered Medications: [COMPLETED] sodium zirconium cyclosilicate (LOKELMA) oral powder packet 10 Gram, 10 Gram, Oral, ONEtime only, Marie Eduardo MD, 10 Gram at 05/25/25 0848 sodium chloride 0.9 % infusion, , IV, continuous, Marie Eduardo MD, Stopped at 05/25/25 0929 [COMPLETED] sodium zirconium cyclosilicate (LOKELMA) oral powder packet 10 Gram, 10 Gram, Oral, ONEtime only, Marie Eduardo MD, 10 Gram at 05/24/25 1043 [DISCONTINUED] lisinopriL (PRINIVIL) tablet 30 mg, 30 mg, Oral, daily, Marie Eduardo MD gabapentin (NEURONTIN) capsule 300 mg, 300 mg, Oral, every 8 hours, Duc Camp MD, 300 mg at 05/25/25 0522 albuterol sulfate 90 mcg/Actuation inhaler 2 Puff, 2 Puff, Inhalation, resp, every 4 hours PRN, Yoav Camp MD acetaminophen (TYLENOL) tablet 650 mg, 650 mg, Oral, every 6 hours, Harmeet Kim MD, 650 mg at 05/25/25 0522 Lidocaine 4 % topical patch 1 Patch, 1 Patch, Topical, daily, Harmeet Kim MD, 1 Patch at 05/16/25 0843 methocarbamoL (ROBAXIN) tablet 500 mg, 500 mg, Oral, every 6 hours, Macy Mitchell, STORE ADMINISTRATIVE ASSISTANT, 500 mg at 05/25/25 0523 labetaloL (NORMODYNE;TRANDATE) 5 mg/mL injection 10 mg, 10 mg, IV, every 4 hours PRN, Nimisha Nicole APRN-BC, 10 mg at 04/25/25 0133 umeclidinium (INCRUSE ELLIPTA) 62.5 mcg/actuation inhaler 1 Puff, 1 Puff, Inhalation, resp, daily, Nimisha Nicole APRN-BC, 1 Puff at 05/25/25 0901 HYDROcodone-acetaminophen (NORCO) 5-325 mg per tablet 1 Tablet, 1 Tablet, Oral, every 4 hours PRN, Nimsiha Nicole MAINTENANCE ASSISTANT-BC, 1 Tablet at 05/25/25 0857 naloxone (NARCAN) 0.4 mg/mL injection 0.1-0.4 mg, 0.1-0.4 mg, IV, see admin instructions, Nimisha Nicole APRN-BC sodium chloride flush injection 10 mL, 10 mL, IV, every 12 hours (2 times daily), Nimisha Nicole MAINTENANCE ASSISTANT-BC, 10 mL at 05/25/25 0906 sodium chloride flush injection 10 mL, 10 mL, IV, see admin instructions, Nimisha Nicole MAINTENANCE ASSISTANT-BC, 10 mL at 05/19/25 1023 sodium chloride 0.9 % flush bag 25 mL, 25 mL, IV, see admin instructions, Nimisha Nicole MAINTENANCE ASSISTANT-BC dextrose 5 % in water 250 mL flush bag 25 mL, 25 mL, IV, see admin instructions, Nimisha Nicole MAINTENANCE ASSISTANT-BC ondansetron (ZOFRAN ODT) tablet 4 mg, 4 mg, Oral, every 6 hours PRN, Nimisha Nicole MAINTENANCE ASSISTANT-BC,4 mg at 04/25/25 0731 nicotine (NICODERM CQ) 7 mg/24 hr transdermal patch 1 Patch, 1 Patch, Transdermal, daily, Nimisha Nicole APRN-BC, 1 Patch at 05/25/25 0849 heparin injection 5,000 Units, 5,000 Units, subCUT, every 8 hours, Duc Camp MD, 5,000 Units at 05/03/25 0444 Primary discharge diagnosis: Secondary spontaneous pneumothorax Other active medical issues also addressed during this admission: Active Hospital Problems Diagnosis Hypertension, essential Moderate protein-calorie malnutrition Chronic kidney disease, stage IV (severe) (CMS/HCC) Acute respiratory failure with hypoxia (CMS/HCC) Secondary spontaneous pneumothorax Cigarette smoker Elevated serum creatinine Hyperkalemia Resolved Hospital Problems No resolved problems to display. ASSESSMENT AND PLAN: Secondary spontaneous large left pneumothorax Failed [place] pleurodesis Cardiothoracic surgery proceeding with clamping trials to evaluate discontinuing chest tubes soon Emphysema Was evaluated by pulmonology during this stay Continue Incruse and as needed albuterol CKD-4 Hyperkalemia-monitoring Was evaluated by nephrology during this stay Lisinopril held on 05/24. Lokelma ordered on 05/24 and 05/25 Continue IVF and renal diet Hypertension-monitoring Continue as needed IV labetalol Neuropathy Continue gabapentin Moderate protein calorie malnutrition Which affects patient's recovery Secondary to most likely acute and chronic comorbidity Increasing p.o. intake will assist overall clinical status Continue dietary supplements Please refer to clinical dietitian's note for assessment and recommendations Tobacco abuse Counseled on cessation Continue nicotine patch DVT prophylaxis Continue heparin Code status: Full Code Outpatient follow up: PCP, CTS, nephrology, pulmonology Anticipated Disposition Location: Final Discharge Disposition: Home or Self Care Timeframe: 05/27/2025 Criteria: Stable clinical status Prior to discharge: Home O2 evaluation Patient's understanding of illness: Yes MDM: Moderate On the day of the visit, I provided care to this patient including Preparing to see the patient, Obtaining and/or reviewing separately obtained history, Performing a medically appropriate examinationand/or evaluation, Counseling and educating the patient/family/caregiver, Ordering medications, tests or procedures, Documenting clinical information in the medical record, Referring and communication with other health urgent care technician (not separately reported), Independently interpreting resultsand communicating results to the patient/family/caregiver (not separately reported), and Care coordination (not separately reported). Marie Eduardo MD 05/25/2025, 10:27 AM * Wyatt Tarango PA - 05/25/2025 8:23 AM CDT Cardiothoracic Surgery Progress Note Admit Date: 04/24/2025 Hospital day: LOS: 31 days SUBJECTIVE: Patient sitting up to side of bed. States he feels OK this morning, awaiting breakfast. No air leakin either CT with inspiration/expiration/coughing/forced expiration. 05/03: Chest tube with air leak. Will discuss with Dr. Trammell. 05/04: Left pleural chest tube (pigtail) with air leak, (+) subcutaneous emphysema along left chest wall, patient reports tenderness on exam. Pigtail kinked - adjusted. Repeat CXR. 05/05: LpCT (pigtail) remains w air leak, (+) subcutaneous emphysema and muted phonation. Tendernessto left side remains. EBV unable to be placed yesterday, patient not candidate. 05/06: LpCT (pigtail) remains w air leak, (+) subcutaneous emphysema and muted phonation. Tendernessto left side remains. IR to exchange/upside LpCT today, will attempt blood patch once new CT is in place. Wean oxygen off, goal SpO2 88-94%. 05/07: LpCT (pigtail) remains w air leak, (+) subcutaneous emphysema. Blood patch performed yesterday. 05/08: LpCT (pigtail) with continuous air leak, subQ emphysema. 05/09: LpCT (pigtail) with continuous air leak, subQ emphysema. Addendum: patient have more subQ air on the left shoulder and neck area, with a bit change of voice. Still on room air sat 95%. Pigtail in the same position. Suction placed to -30mmHg. 05/10: LpCT (pigtail) with continuous air leak on -30mmHg suction, muted phonation. Recommend transfer to [place]. 05/11: LpCT (pigtail) with continuous air leak, on -30mmHg suction, muted phonation. Transfer attempted to [place]. Dr. Atkins and Dr. Weller discussed case, to additional options to offer at [place]. 05/12: LpCT (pigtail) continues to have air leak, suction weaned to -20mmHg per Dr. Atkins, repeat CXR 1145. 05/13/: cxr with increased ptx, LpCT (pigtail) continues to have air leak, suction to -30mmHg per Dr. Atkins 05/14: cxr worsened ptx, placed surgical chest tube Addendum: keep large chest tube to -30 suction, keep pigtail to water seal for now. CXR stable 05/15: + air leak on chest tube, subQ emphysema present. Clamped pig tail today, will repeat chest xray in 4 hours, unclamped due to worsening pneumothorax on CXR 05/16: + air leak on chest tube, subQ emphysema present. Continue pig tail today 05/17: +air leak on chest tube, subQ emphysema present. Continue both tubes today, consider transferto LT[facility] for chest tube management 05/18: + air leak, continue both tubes on -30 suction, may go to Lt[facility] 05/19: air leak improving, subQ air improving, continue both chest tubes to -20 suction 05/20: Air leak improving. CXR stable. Continue chest tube to suction. 05/21: CXR stable. Suction turned down to -10. No air leak present this AM. 05/22: CXR stable, suction remains at -10mmHg, no air leak in either CT this morning. Keep CT x2 to suction at -10mmHg. Improvement in SQ air, voice stronger. 05/23: CXR stable, no air leak. CT x2 placed to waterseal, will repeat CXR at 12PM stable, CT x 2 remain on water seal. 05/24: CXR stable, no air leak. Clamp trial to left pigtail CT at 0730, repeat CXR at 1130, if stable will plan to remove pigtail. Left straight pleural CT remains on water seal today. 05/25: cxr stable, no air leak, clamp trial OBJECTIVE: BP 128/77 Pulse 83 Temp 97.7 ??F (36.5 ??C) (Temporal) Resp 22 Ht 5' 11 (1.803 m) Wt 73.9 kg (162 lb 14.7 oz) SpO2 91% BMI 22.72 kg/m?? Intake/Output Summary (Last 24 hours) at 05/25/2025 0823 Last data filed at 05/25/2025 0700 Gross per 24 hour Intake 1135 ml Output 1100 ml Net 35 ml Last documented weight: Weight: 73.9 kg (162 lb 14.7 oz) (05/25/25 0422) Weight: 75.6 kg (166 lb 10.7 oz) (04/24/25 1522) General appearance: Awake, alert, oriented to person, place, time and situation. No acute distress. Lungs: Respirations unlabored, lungs clear with equal air movement bilaterally. Left pleural chest tubes x 2 with no air leak on water seal, left pigtail clamped for clamping trial. Heart: S1/S2 audible, regular rate, regular rhythm, no clicks, rubs, murmurs. Extremities: moves all extremities without difficulty, no edema Neurologic: grossly normal Data Reviewed: CBC: Recent Labs 05/22/25 0940 05/25/25 0538 WBC 12.9* 9.6 HGB 11.7* 11.7* HCT 35.8* 35.1* PLT 464* 541* MCV 91.1 89.5 BMP: Recent Labs 05/23/25 0705 05/24/25 0824 05/24/25 1413 05/25/25 0538 GLUCOSE 110* 123* -- 102* BUN 36* 43* -- 39* CREAT 1.99* 1.93* -- 1.82* NA 132* 134* -- 137 K 5.2* 5.6* 5.3* 5.4* CL 99 100 -- 102 CO2 21* 23 -- 22 ANIONGAP 12 11 -- 13 CA 9.2 9.7 -- 9.3 Hemoglobin A1C: No results found for: HGBA1C , [id number] LFTs: No results for input(s): ALKPHOS , ALT , AST , BILITOTAL , ALBUMIN , AMYLASE , LIPASE in the last 72 hours. Coagulation: No results for input(s): PT , INR , APTT in the last 72 hours. ASSESSMENT: Active Hospital Problems Diagnosis Hypertension, essential Moderate protein-calorie malnutrition Chronic kidney disease, stage IV (severe) (CMS/HCC) Acute respiratory failure with hypoxia (CMS/HCC) Secondary spontaneous pneumothorax Cigarette smoker Elevated serum creatinine Hyperkalemia Resolved Hospital Problems No resolved problems to display. CXR DATE/TIME OF EXAM: 05/25/2025 4:12 AM REASON FOR STUDY: Pneumothorax DIAGNOSIS: See Reason for Exam COMPARISON: May 24, 2025. TECHNIQUE: A frontal radiograph of the chest was obtained. FINDINGS: Left chest tube remains in place. Pigtail pleural drainage catheter on the left has been removed. No visible pneumothorax. Extensive subcutaneous emphysema throughout the chest wall left greater than right is similar to the prior study. Left basilar consolidation with left pleural collection appears similar to the prior study. Cardiac and mediastinal silhouette is within normal limits. No new bony abnormality. IMPRESSION: 1. Interval removal of the pigtail left-sided pleural drainage catheter. Other findings are similar to the previous study. PLAN: Left pneumothorax -Encourage ambulation w chest tubes on water seal. -No air leak in chest tube this AM. -clamp Left straight pleural chest tube 4 hr cxr -CTS will continue to follow. VENITA Bonilla Cardiac and Thoracic Surgery Cosigned by Puma Atkins MD at 05/25/2025 6:12 PM CDT * Zabrina Bynum PA-C - 05/24/2025 12:53 PM CDT Images from the original note were not included. 1130 - CXR reviewed, stable. Left pleural pigtail catheter removed at bedside, site covered with Xeroform gauze, 4x4 gauze, Tegaderm. Left straight chest tube remains on water seal, dressing changed.If CXR remains stable will plan for clamp trial for remaining tube tomorrow. Sunshine Dos Santos, LUIS ES, ZAINAB US Cardiac and Thoracic Surgery Date/Time of Exam: 05/24/2025 11:41 AM Reason For Exam: Other - Please see comments, Comment: Clamp trial for left pigtail Diagnosis: See Reason for Exam Comparison is to a study from earlier the same day. The left-sided chest tube and pleural drain tube remain in place. No pneumothorax is seen. Left lower lung atelectasis and small left pleural effusion are unchanged. The right lung is clear. The heart size is normal. IMPRESSION: No evidence of any pneumothorax. Cosigned by Puma Atkins MD at 05/25/2025 6:12 PM CDT * Marie Eduardo MD - 05/24/2025 10:38 AM CDT Images from the original note were not included. Your life is our life's work [facility] Hospitalist/Hospital Medicine Progress Note LOS: 30 days Room/Bed: 42/ Patient name: Fryolan Yan Date of : 1965 HOSPITAL COURSE SUMMARY: Froylan Yan is a 60-year-old male with a history of cigarette smoking, hypertension, and chronic kidney disease who was admitted to [facility] on 04/24/2025 for evaluation and management of a secondary spontaneous pneumothorax after presenting with sudden onset of left-sided chest pain and shortness of breath. 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 During hospitalization, he experienced recurrent large left pneumothorax and partial lung collapse after the initial chest tube became dislodged, necessitating ICU transfer and emergent repeat chest tube placement, confirmed by stat chest x-ray and managed with continuous wall suction and serial imaging. Pulmonology and cardiothoracic surgery were consulted for ongoing management of the persistent air leak and subcutaneous emphysema, with daily chest x-rays to monitor lung re-expansion and tubeposition. Despite chest tube management, he continued to have a persistent expiratory air leak and subcutaneous emphysema, and underwent bedside talc pleurodesis on 05/01/2025, which did not resolve the air leak. Endobronchial valve placement was attempted on 05/04/2025 but was unsuccessful due to collateral ventilation, as determined by intra-procedural balloon occlusion testing during bronchoscopy.Blood patch therapy was performed on 05/06/2025, with continued monitoring via daily chest x-ray andserial clinical assessment. He required supplemental oxygen, initially up to 15 L, which was gradually weaned; he remained on low-flow nasal cannula with SpO2 maintained between 88- 94% until late in the admission, when he was able to ambulate with chest tubes in place and maintain SpO2 at 91%. On 05/14/2025, a new apical largebore chest tube was placed due to worsening pneumothorax, resulting in radiographic improvement; both chest tubes were maintained to suction, with the pigtail intermittently clamped and returned to water seal as clinically indicated. Suction was gradually reduced from -30 mmHg to -10 mmHg as the air leak resolved, and by 05/22/2025, no air leak was present in either chest tube, which were then placed on water seal with plans for removal and post-removal monitoring for recurrence. Transfer to a tertiary center was considered but ultimately not pursued after case discussion with outside thoracic surgery, as no additional interventions were available; the patient declined transfer to a long-term acute care hospital due to distance and preference for home discharge. Additional issues addressed during the admission included moderate protein- calorie malnutrition, asassessed by the nutrition team, with initiation of oral nutrition supplements and a potassium-controlled diet; his oral intake was adequate and weight remained stable at 75.7 kg on 05/21/2025. Renal function was monitored closely due to underlying stage IV chronic kidney disease, with nephrology consultation and ongoing laboratory surveillance; creatinine remained near baseline (1.75-1.99) and potassium was managed medically. Hypertension was managed with continuation of home lisinopril. He developed leukocytosis and left lower lobe consolidation late in the admission, for which ceftriaxone was administered for five days. Heparin was used for DVT prophylaxis throughout the hospitalization. On 05/19/2025, he reported numbness in the left hand in the ulnar nerve distribution without motor weakness, and gabapentin was started. 05/23 patient was evaluated by CTS who noted the chest x-ray to be stable with no air leaks, placed chest tubes to waterseal with plan to repeat chest x-ray at noon. Analgesic regimen adjusted. Antihypertensive regimen adjusted. Discussed plan of care with patient and RN 05/24 cardiothoracic surgery proceeding with clamping trials to evaluate discontinuing chest tubes. Hyperkalemia; lisinopril held, Lokelma, IVF and renal diet ordered. Monitoring potassium level closely. A.m. labs ordered. Discussed plan of care with patient and RN at bedside Consultants: IP CONSULT TO PULMONOLOGY IP CONSULT TO NEPHROLOGY IP CONSULT TO IV TEAM SUBJECTIVE: Patient reports to be doing well. Denies chest pain or shortness of breath OBJECTIVE: Temp (24hrs), Av.1 ??F (36.7 ??C), Min:97.1 ??F (36.2 ??C), Max:99 ??F (37.2 ??C) BP 116/74 Pulse 83 Temp 98.1 ??F (36.7 ??C) (Temporal) Resp 14 Ht 5' 11 (1.803 m) Wt 73.1 kg (161 lb 2.5 oz) SpO2 91% BMI 22.48 kg/m?? Intake/Output Summary (Last 24 hours) at 05/24/2025 1038 Last data filed at 05/24/2025 0832 Gross per 24 hour Intake 1575 ml Output 2401 ml Net -826 ml Last documented weight: Weight: 73.1 kg (161 lb 2.5 oz) (05/24/25 0245) EXAM: General: alert, in no distress Neurologic: Grossly normal HEENT: atraumatic, Normocephalic, without obvious abnormality Lungs: clear to auscultation bilaterally, normal respiratory effort Heart: normal rate, regular rhythm, normal S1, S2 Abdomen: Soft, non-tender. Bowel sounds normal. Extremities: extremities normal, atraumatic, no cyanosis or edema, intact distal pulses, moves all extremities equally, no edema, redness or tenderness in the calves or thighs, normal strength, normal tone Skin: negative LABORATORY: Recent Labs 05/22/25 0940 WBC 12.9* HGB 11.7* HCT 35.8* PLT 464* Recent Labs 05/23/25 0705 05/24/25 0824 NA 132* 134* K 5.2* 5.6* CL 99 100 CO2 21* 23 CA 9.2 9.7 BUN 36* 43* CREAT 1.99* 1.93* GLUCOSE 110* 123* No results for input(s): TOTALPROTEIN , ALBUMIN , BILITOTAL , ALKPHOS , AST , ALT in the last 72 hours. No results for input(s): INR , PT in the last 72 hours. Invalid input(s): PTT No results for input(s): BASETROP , 2HRTROP , DELTA , 6HRTROP in the last 72 hours. Diagnostic testing reviewed by me: Medications were reviewed by me. Current Facility-Administered Medications: sodium chloride 0.9 % infusion, , IV, continuous, Marie Eduardo MD, Last Rate: 75 mL/hr at 05/24/25 1001, New Bag at 05/24/25 1001 sodium zirconium cyclosilicate (LOKELMA) oral powder packet 10 Gram, 10 Gram, Oral, ONE time only, Marie Eduardo MD [DISCONTINUED] sodium zirconium cyclosilicate (LOKELMA) oral powder packet 10 Gram, 10 Gram, Oral, ONE time only, Marie Eduardo MD [Held by Provider] lisinopriL (PRINIVIL) tablet 30 mg, 30 mg, Oral, daily, Marie Eduardo MD gabapentin (NEURONTIN) capsule 300 mg, 300 mg, Oral, every 8 hours, Duc Camp MD, 300 mg at 05/24/25 0530 albuterol sulfate 90 mcg/Actuation inhaler 2 Puff, 2 Puff, Inhalation, resp, every 4 hours PRN, Yoav Camp MD acetaminophen (TYLENOL) tablet 650 mg, 650 mg, Oral, every 6 hours, Harmeet Kim MD, 650 mg at 05/24/25 0530 Lidocaine 4 % topical patch 1 Patch, 1 Patch, Topical, daily, Harmeet Kim MD, 1 Patch at 05/16/25 0843 methocarbamoL (ROBAXIN) tablet 500 mg, 500 mg, Oral, every 6 hours, Macy Mitchell, STORE ADMINISTRATIVE ASSISTANT, 500 mg at 05/24/25 0530 [DISCONTINUED] lisinopriL (PRINIVIL) tablet 40 mg, 40 mg, Oral, daily, Jerry Moreno MD, 40 mg at 05/23/25 0823 [DISCONTINUED] lidocaine 1 % (XYLOCAINE) injection 300 mg, 30 mL, Infiltration, ONE time only, Thais Shaw NP labetaloL (NORMODYNE;TRANDATE) 5 mg/mL injection 10 mg, 10 mg, IV, every 4 hours PRN, Nimisha Nicole APRN-BC, 10 mg at 04/25/25 0133 umeclidinium (INCRUSE ELLIPTA) 62.5 mcg/actuation inhaler 1 Puff, 1 Puff, Inhalation, resp, daily, Nimisha Nicole APRN-BC, 1 Puff at 05/24/25 0820 [DISCONTINUED] hydrALAZINE (APRESOLINE) 20 mg/mL injection 10 mg, 10 mg, IV, every 6 hours PRN, Nimisha Nicole MAINTENANCE ASSISTANT-BC, 10 mg at 05/12/25 0829 [DISCONTINUED] dextrose 5 % bolus solution 120 mL, 120 mL, IV, ONE time only, Nimisha NicoleMAINTENANCE ASSISTANT-BC HYDROcodone-acetaminophen (NORCO) 5-325 mg per tablet 1 Tablet, 1 Tablet, Oral, every 4 hours PRN, Nimisha Nicole APRN-BC, 1 Tablet at 05/23/25 1743 naloxone (NARCAN) 0.4 mg/mL injection 0.1-0.4 mg, 0.1-0.4 mg, IV, see admin instructions, Nimisha Nicole APRN-BC sodium chloride flush injection 10 mL, 10 mL, IV, every 12 hours (2 times daily), Nimisha Nicole MAINTENANCE ASSISTANT-BC, 10 mL at 05/24/25 0821 sodium chloride flush injection 10 mL, 10 mL, IV, see admin instructions, Nimisha Nicole MAINTENANCE ASSISTANT-BC, 10 mL at 05/19/25 1023 sodium chloride 0.9 % flush bag 25 mL, 25 mL, IV, see admin instructions, Nimisha Nicole APRN-BC dextrose 5 % in water 250 mL flush bag 25 mL, 25 mL, IV, see admin instructions, Nimisha Nicole, MAINTENANCE ASSISTANT-BC ondansetron (ZOFRAN ODT) tablet 4 mg, 4 mg, Oral, every 6 hours PRN, Nimisha Nicole MAINTENANCE ASSISTANT-BC,4 mg at 04/25/25 0731 nicotine (NICODERM CQ) 7 mg/24 hr transdermal patch 1 Patch, 1 Patch, Transdermal, daily, Nimisha Nicole MAINTENANCE ASSISTANT-BC, 1 Patch at 05/24/25 0820 heparin injection 5,000 Units, 5,000 Units, subCUT, every 8 hours, Duc Camp MD, 5,000 Units at 05/03/25 0444 [DISCONTINUED] HYDROmorphone (PF) (DILAUDID) injection 0.5 mg, 0.5 mg, IV, every 3 hours PRN, Nimisha Nicole APRN-BC, 0.5 mg at 05/14/25 1026 Primary discharge diagnosis: Secondary spontaneous pneumothorax Other active medical issues also addressed during this admission: Active Hospital Problems Diagnosis Hypertension, essential Moderate protein-calorie malnutrition Chronic kidney disease, stage IV (severe) (CMS/HCC) Acute respiratory failure with hypoxia (CMS/HCC) Secondary spontaneous pneumothorax Cigarette smoker Elevated serum creatinine Hyperkalemia Resolved Hospital Problems No resolved problems to display. ASSESSMENT AND PLAN: Secondary spontaneous large left pneumothorax Failed Talc pleurodesis Cardiothoracic surgery proceeding with clamping trials to evaluate discontinuing chest tubes Emphysema Was evaluated by pulmonology during this stay Continue Incruse and as needed albuterol CKD-4 Hyperkalemia-monitoring Was evaluated by nephrology during this stay Lisinopril held. Lokelma, IVF and renal diet ordered Hypertension-monitoring Continue as needed IV labetalol Neuropathy Continue gabapentin Moderate protein calorie malnutrition Which affects patient's recovery Secondary to most likely acute and chronic comorbidity Increasing p.o. intake will assist overall clinical status Continue dietary supplements Please refer to clinical dietitian's note for assessment and recommendations Tobacco abuse Counseled on cessation Continue nicotine patch DVT prophylaxis Continue heparin Code status: Full Code Outpatient follow up: PCP, CTS, nephrology, pulmonology Anticipated Disposition Location: Final Discharge Disposition: Home or Self Care Timeframe: 05/27/2025 Criteria: Stable clinical status Prior to discharge: Home O2 evaluation Patient's understanding of illness: Yes MDM: High On the day of the visit, I provided care to this patient including Preparing to see the patient, Obtaining and/or reviewing separately obtained history, Performing a medically appropriate examinationand/or evaluation, Counseling and educating the patient/family/caregiver, Ordering medications, tests or procedures, Documenting clinical information in the medical record, Referring and communication with other health urgent care technician (not separately reported), Independently interpreting resultsand communicating results to the patient/family/caregiver (not separately reported), and Care coordination (not separately reported). Marie Eduardo MD 05/24/2025, 10:38 AM * Zabrina Bynum PA-C - 05/24/2025 7:46 AM CDT Images from the original note were not included. Cardiothoracic Surgery Progress Note Admit Date: 04/24/2025 Hospital day: LOS: 30 days SUBJECTIVE: Patient sitting up to side of bed. States he feels OK this morning, awaiting breakfast. No air leakin either CT with inspiration/expiration/coughing/forced expiration. 05/03: Chest tube with air leak. Will discuss with Dr. Trammell. 05/04: Left pleural chest tube (pigtail) with air leak, (+) subcutaneous emphysema along left chest wall, patient reports tenderness on exam. Pigtail kinked - adjusted. Repeat CXR. 05/05: LpCT (pigtail) remains w air leak, (+) subcutaneous emphysema and muted phonation. Tendernessto left side remains. EBV unable to be placed yesterday, patient not candidate. 05/06: LpCT (pigtail) remains w air leak, (+) subcutaneous emphysema and muted phonation. Tendernessto left side remains. IR to exchange/upside LpCT today, will attempt blood patch once new CT is in place. Wean oxygen off, goal SpO2 88-94%. 05/07: LpCT (pigtail) remains w air leak, (+) subcutaneous emphysema. Blood patch performed yesterday. 05/08: LpCT (pigtail) with continuous air leak, subQ emphysema. 05/09: LpCT (pigtail) with continuous air leak, subQ emphysema. Addendum: patient have more subQ air on the left shoulder and neck area, with a bit change of voice. Still on room air sat 95%. Pigtail in the same position. Suction placed to -30mmHg. 05/10: LpCT (pigtail) with continuous air leak on -30mmHg suction, muted phonation. Recommend transfer to [place]. 05/11: LpCT (pigtail) with continuous air leak, on -30mmHg suction, muted phonation. Transfer attempted to [place]. Dr. Atkins and Dr. Weller discussed case, to additional options to offer at [place]. 05/12: LpCT (pigtail) continues to have air leak, suction weaned to -20mmHg per Dr. Atkins, repeat CXR 1145. 05/13/: cxr with increased ptx, LpCT (pigtail) continues to have air leak, suction to -30mmHg per Dr. Atkins 05/14: cxr worsened ptx, placed surgical chest tube Addendum: keep large chest tube to -30 suction, keep pigtail to water seal for now. CXR stable 05/15: + air leak on chest tube, subQ emphysema present. Clamped pig tail today, will repeat chest xray in 4 hours, unclamped due to worsening pneumothorax on CXR 05/16: + air leak on chest tube, subQ emphysema present. Continue pig tail today 05/17: +air leak on chest tube, subQ emphysema present. Continue both tubes today, consider transferto LTAC for chest tube management 05/18: + air leak, continue both tubes on -30 suction, may go to Ltac 05/19: air leak improving, subQ air improving, continue both chest tubes to -20 suction 05/20: Air leak improving. CXR stable. Continue chest tube to suction. 05/21: CXR stable. Suction turned down to -10. No air leak present this AM. 05/22: CXR stable, suction remains at -10mmHg, no air leak in either CT this morning. Keep CT x2 to suction at -10mmHg. Improvement in SQ air, voice stronger. 05/23: CXR stable, no air leak. CT x2 placed to waterseal, will repeat CXR at 12PM stable, CT x 2 remain on water seal. 05/24: CXR stable, no air leak. Clamp trial to left pigtail CT at 0730, repeat CXR at 1130, if stable will plan to remove pigtail. Left straight pleural CT remains on water seal today. OBJECTIVE: BP 109/78 (BP Location: Left arm, Patient Position (BP): Supine) Pulse 83 Temp 98.1 ??F (36.7 ??C) (Temporal) Resp 14 Ht 5' 11 (1.803 m) Wt 73.1 kg (161 lb 2.5 oz) SpO2 91% BMI 22.48 kg/m?? Intake/Output Summary (Last 24 hours) at 05/24/2025 0746 Last data filed at 05/24/2025 0711 Gross per 24 hour Intake 1255 ml Output 2402 ml Net -1147 ml Last documented weight: Weight: 73.1 kg (161 lb 2.5 oz) (05/24/25 0245) Weight: 75.6 kg (166 lb 10.7 oz) (04/24/25 1522) General appearance: Awake, alert, oriented to person, place, time and situation. No acute distress. Lungs: Respirations unlabored, lungs clear with equal air movement bilaterally. Left pleural chest tubes x 2 with no air leak on water seal, left pigtail clamped for clamping trial. Heart: S1/S2 audible, regular rate, regular rhythm, no clicks, rubs, murmurs. Extremities: moves all extremities without difficulty, no edema Neurologic: grossly normal Data Reviewed: CBC: Recent Labs 05/22/25 0940 WBC 12.9* HGB 11.7* HCT 35.8* PLT 464* MCV 91.1 BMP: Recent Labs 05/23/25 0705 GLUCOSE 110* BUN 36* CREAT 1.99* NA 132* K 5.2* CL 99 CO2 21* ANIONGAP 12 CA 9.2 Hemoglobin A1C: No results found for: HGBA1C , [id number] LFTs: No results for input(s): ALKPHOS , ALT , AST , BILITOTAL , ALBUMIN , AMYLASE , LIPASE in the last 72 hours. Coagulation: No results for input(s): PT , INR , APTT in the last 72 hours. ASSESSMENT: Active Hospital Problems Diagnosis Hypertension, essential Moderate protein-calorie malnutrition Chronic kidney disease, stage IV (severe) (CMS/HCC) Acute respiratory failure with hypoxia (CMS/HCC) Secondary spontaneous pneumothorax Cigarette smoker Elevated serum creatinine Hyperkalemia Resolved Hospital Problems No resolved problems to display. CXR (05/23/2025): Date/Time of Exam: 05/24/2025 5:13 AM Reason For Exam: Pneumothorax. Diagnosis: See Reason for Exam. Comparison: 05/23/2025. Findings: Left-sided thoracostomy tubes remain in place without apparent interval change in position. There is redemonstration of a left pleural effusion with adjacent nonspecific left perihilar and basilar consolidation appearing similar to the previous exam. There is no new consolidation or appreciable pneumothorax. There is redemonstration of subcutaneous emphysema. IMPRESSION: No significant interval change. PLAN: Left pneumothorax -Encourage ambulation w chest tubes on water seal. -No air leak in either chest tube this AM. -Chest tubes placed on water seal yesterday. -Left pigtail chest tube clamped at 0730. -Repeat CXR at 1130. If stable, will remove left pigtail chest tube. -Left straight pleural chest tube to remain on water seal today. -CTS will continue to follow. Sunshine Dos Santos MPAS, MBA, PA-C Cardiac and Thoracic Surgery Cosigned by Puma Atkins MD at 05/25/2025 6:12 PM CDT * Zabrina Bynum PA-C - 05/24/2025 7:44 AM CDT 0730 - AM CXR stable, no air leak in either cannister. Left pigtail clamped for clamping trial. Repeat CXR at 1130, if CXR stable will plan to remove left pigtail today. Left straight pleural CT remains on water seal. Seen with Dr. Atkins at bedside. Sunshine Dos Santos MPAS, MBA, PA-C Cardiac and Thoracic Surgery Cosigned by Puma Atkins MD at 05/25/2025 6:12 PM CDT * Marie Eduardo MD - 05/23/2025 11:33 AM CDT Images from the original note were not included. Your life is our life's work [facility] Hospitalist/Hospital Medicine Progress Note LOS: 29 days Room/Bed: 42/01 Patient name: Froylan Yan Date of : 1965 HOSPITAL COURSE SUMMARY: Froylan Yan is a 60-year-old male with a history of cigarette smoking, hypertension, and chronic kidney disease who was admitted to [facility] on 04/24/2025 for evaluation and management of a secondary spontaneous pneumothorax after presenting with sudden onset of left-sided chest pain and shortness of breath. 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 During hospitalization, he experienced recurrent large left pneumothorax and partial lung collapse after the initial chest tube became dislodged, necessitating ICU transfer and emergent repeat chest tube placement, confirmed by stat chest x-ray and managed with continuous wall suction and serial imaging. Pulmonology and cardiothoracic surgery were consulted for ongoing management of the persistent air leak and subcutaneous emphysema, with daily chest x-rays to monitor lung re-expansion and tubeposition. Despite chest tube management, he continued to have a persistent expiratory air leak and subcutaneous emphysema, and underwent bedside talc pleurodesis on 05/01/2025, which did not resolve the air leak. Endobronchial valve placement was attempted on 05/04/2025 but was unsuccessful due to collateral ventilation, as determined by intra-procedural balloon occlusion testing during bronchoscopy.Blood patch therapy was performed on 05/06/2025, with continued monitoring via daily chest x-ray andserial clinical assessment. He required supplemental oxygen, initially up to 15 L, which was gradually weaned; he remained on low-flow nasal cannula with SpO2 maintained between 88- 94% until late in the admission, when he was able to ambulate with chest tubes in place and maintain SpO2 at 91%. On 05/14/2025, a new apical largebore chest tube was placed due to worsening pneumothorax, resulting in radiographic improvement; both chest tubes were maintained to suction, with the pigtail intermittently clamped and returned to water seal as clinically indicated. Suction was gradually reduced from -30 mmHg to -10 mmHg as the air leak resolved, and by 05/22/2025, no air leak was present in either chest tube, which were then placed on water seal with plans for removal and post-removal monitoring for recurrence. Transfer to a tertiary center was considered but ultimately not pursued after case discussion with outside thoracic surgery, as no additional interventions were available; the patient declined transfer to a long-term acute care hospital due to distance and preference for home discharge. Additional issues addressed during the admission included moderate protein- calorie malnutrition, asassessed by the nutrition team, with initiation of oral nutrition supplements and a potassium-controlled diet; his oral intake was adequate and weight remained stable at 75.7 kg on 05/21/2025. Renal function was monitored closely due to underlying stage IV chronic kidney disease, with nephrology consultation and ongoing laboratory surveillance; creatinine remained near baseline (1.75-1.99) and potassium was managed medically. Hypertension was managed with continuation of home lisinopril. He developed leukocytosis and left lower lobe consolidation late in the admission, for which ceftriaxone was administered for five days. Heparin was used for DVT prophylaxis throughout the hospitalization. On 05/19/2025, he reported numbness in the left hand in the ulnar nerve distribution without motor weakness, and gabapentin was started. 05/23 patient was evaluated by CTS who noted the chest x-ray to be stable with no air leaks, placed chest tubes to waterseal with plan to repeat chest x-ray at noon. Analgesic regimen adjusted. Antihypertensive regimen adjusted. Discussed plan of care with patient and RN Consultants: IP CONSULT TO PULMONOLOGY IP CONSULT TO NEPHROLOGY IP CONSULT TO IV TEAM SUBJECTIVE: Patient reports to be doing well. Denies chest pain or shortness of breath OBJECTIVE: Temp (24hrs), Av.3 ??F (36.8 ??C), Min:97.7 ??F (36.5 ??C), Max:98.8 ??F (37.1 ??C) BP 111/74 (BP Location: Right arm, Patient Position (BP): Sitting) Pulse 83 Temp 98.8 ??F (37.1??C) (Temporal) Resp 15 Ht 5' 11 (1.803 m) Wt 73.3 kg (161 lb 9.6 oz) SpO2 91% BMI 22.54kg/m?? Intake/Output Summary (Last 24 hours) at 05/23/2025 1133 Last data filed at 05/23/2025 0900 Gross per 24 hour Intake 1670 ml Output 633 ml Net 1037 ml Last documented weight: Weight: 73.3 kg (161 lb 9.6 oz) (05/22/25 0500) EXAM: General: alert, in no distress Neurologic: Grossly normal HEENT: atraumatic, Normocephalic, without obvious abnormality Lungs: clear to auscultation bilaterally, normal respiratory effort Heart: normal rate, regular rhythm, normal S1, S2, no murmurs, rubs, clicks or gallops Abdomen: Soft, non-tender. Bowel sounds normal. No masses, no organomegaly. Extremities: extremities normal, atraumatic, no cyanosis or edema, intact distal pulses, moves all extremities equally, no edema, redness or tenderness in the calves or thighs, normal strength, normal tone Skin: negative LABORATORY: Recent Labs 05/22/25 0940 WBC 12.9* HGB 11.7* HCT 35.8* PLT 464* Recent Labs 05/23/25 0705 NA 132* K 5.2* CL 99 CO2 21* CA 9.2 BUN 36* CREAT 1.99* GLUCOSE 110* No results for input(s): TOTALPROTEIN , ALBUMIN , BILITOTAL , ALKPHOS , AST , ALT in the last 72 hours. No results for input(s): INR , PT in the last 72 hours. Invalid input(s): PTT No results for input(s): BASETROP , 2HRTROP , DELTA , 6HRTROP in the last 72 hours. Diagnostic testing reviewed by me: Medications were reviewed by me. Current Facility-Administered Medications: [START ON 05/24/2025] lisinopriL (PRINIVIL) tablet 30 mg, 30 mg, Oral, daily, Marie Eduardo MD gabapentin (NEURONTIN) capsule 300 mg, 300 mg, Oral, every 8 hours, Duc Camp MD, 300 mg at 05/23/25 1124 albuterol sulfate 90 mcg/Actuation inhaler 2 Puff, 2 Puff, Inhalation, resp, every 4 hours PRN, Yoav Camp MD acetaminophen (TYLENOL) tablet 650 mg, 650 mg, Oral, every 6 hours, Harmeet Kim MD, 650 mg at 05/23/25 1124 Lidocaine 4 % topical patch 1 Patch, 1 Patch, Topical, daily, Harmeet Kim MD, 1 Patch at 05/16/25 0843 methocarbamoL (ROBAXIN) tablet 500 mg, 500 mg, Oral, every 6 hours, Macy Mitchell FNP, 500 mg at 05/23/25 1124 [DISCONTINUED] lisinopriL (PRINIVIL) tablet 40 mg, 40 mg, Oral, daily, Jerry Moreno MD, 40 mg at 05/23/25 0823 [DISCONTINUED] lidocaine 1 % (XYLOCAINE) injection 300 mg, 30 mL, Infiltration, ONE time only, Thais Shaw, PATRICE labetaloL (NORMODYNE;TRANDATE) 5 mg/mL injection 10 mg, 10 mg, IV, every 4 hours PRN, Nimisha Nicole APRN-BC, 10 mg at 04/25/25 0133 umeclidinium (INCRUSE ELLIPTA) 62.5 mcg/actuation inhaler 1 Puff, 1 Puff, Inhalation, resp, daily, Nimisha Nicole APRN-BC, 1 Puff at 05/23/25 0827 [DISCONTINUED] hydrALAZINE (APRESOLINE) 20 mg/mL injection 10 mg, 10 mg, IV, every 6 hours PRN, Nimisha Nicole APRN-BC, 10 mg at 05/12/25 0829 [DISCONTINUED] dextrose 5 % bolus solution 120 mL, 120 mL, IV, ONE time only, Nimisha Nicole APRN-BC HYDROcodone-acetaminophen (NORCO) 5-325 mg per tablet 1 Tablet, 1 Tablet, Oral, every 4 hours PRN, Nimisha Nicole APRN-BC, 1 Tablet at 05/23/25 0823 naloxone (NARCAN) 0.4 mg/mL injection 0.1-0.4 mg, 0.1-0.4 mg, IV, see admin instructions, Nimisha Nicole APRN-BC sodium chloride flush injection 10 mL, 10 mL, IV, every 12 hours (2 times daily), Nimisha Nicole APRN-BC, 10 mL at 05/22/25 2116 sodium chloride flush injection 10 mL, 10 mL, IV, see admin instructions, Nimisha Nicole APRN-BC, 10 mL at 05/19/25 1023 sodium chloride 0.9 % flush bag 25 mL, 25 mL, IV, see admin instructions, Nimisha Nicole APRN-BC dextrose 5 % in water 250 mL flush bag 25 mL, 25 mL, IV, see admin instructions, Nimisha Nicole APRN-BC ondansetron (ZOFRAN ODT) tablet 4 mg, 4 mg, Oral, every 6 hours PRN, Nimisha Nicole APRN-BC,4 mg at 04/25/25 0731 nicotine (NICODERM CQ) 7 mg/24 hr transdermal patch 1 Patch, 1 Patch, Transdermal, daily, Nimisha Nicole APRN-BC, 1 Patch at 05/23/25 0826 heparin injection 5,000 Units, 5,000 Units, subCUT, every 8 hours, Duc Camp MD, 5,000 Units at 05/03/25 0444 [DISCONTINUED] HYDROmorphone (PF) (DILAUDID) injection 0.5 mg, 0.5 mg, IV, every 3 hours PRN, Nimisha Nicole APRN-BC, 0.5 mg at 05/14/25 1026 Primary discharge diagnosis: Secondary spontaneous pneumothorax Other active medical issues also addressed during this admission: Active Hospital Problems Diagnosis Hypertension, essential Moderate protein-calorie malnutrition Chronic kidney disease, stage IV (severe) ([facility]) Acute respiratory failure with hypoxia ([facility]) Secondary spontaneous pneumothorax Cigarette smoker Elevated serum creatinine Hyperkalemia Resolved Hospital Problems No resolved problems to display. ASSESSMENT AND PLAN: Secondary spontaneous large left pneumothorax Failed Talc pleurodesis Managed by CTS with plan to discontinue chest tubes and repeat chest x-ray stable Emphysema Was evaluated by pulmonology during this stay Continue Incruse and as needed albuterol CKD-4 Was evaluated by nephrology during this stay Hypertension-monitoring Continue lisinopril and as needed IV labetalol Neuropathy Continue gabapentin Moderate protein calorie malnutrition Which affects patient's recovery Secondary to most likely acute and chronic comorbidity Increasing p.o. intake will assist overall clinical status Continue dietary supplements Please refer to clinical dietitian's note for assessment and recommendations Tobacco abuse Counseled on cessation Continue nicotine patch DVT prophylaxis Continue heparin Code status: Full Code Outpatient follow up: PCP, CTS, nephrology, pulmonology Anticipated Disposition Location: Final Discharge Disposition: Home or Self Care Timeframe: 05/25/2025 Criteria: Stable clinical status Prior to discharge: Home O2 evaluation Patient's understanding of illness: Yes MDM: High On the day of the visit, I provided care to this patient including Preparing to see the patient, Obtaining and/or reviewing separately obtained history, Performing a medically appropriate examinationand/or evaluation, Counseling and educating the patient/family/caregiver, Ordering medications, tests or procedures, Documenting clinical information in the medical record, Referring and communication with other health urgent care technician (not separately reported), Independently interpreting resultsand communicating results to the patient/family/caregiver (not separately reported), and Care coordination (not separately reported). Marie Eduardo MD 05/23/2025, 11:33 AM * Zabrina Bynum PA-C - 05/23/2025 8:29 AM CDT Images from the original note were not included. Cardiothoracic Surgery Progress Note Admit Date: 04/24/2025 Hospital day: LOS: 29 days SUBJECTIVE: Patient sitting up to side of bed. States he feels OK this morning, awaiting breakfast. No air leakin either CT with inspiration/expiration/coughing/forced expiration. 05/03: Chest tube with air leak. Will discuss with Dr. Trammell. 05/04: Left pleural chest tube (pigtail) with air leak, (+) subcutaneous emphysema along left chest wall, patient reports tenderness on exam. Pigtail kinked - adjusted. Repeat CXR. 05/05: LpCT (pigtail) remains w air leak, (+) subcutaneous emphysema and muted phonation. Tendernessto left side remains. EBV unable to be placed yesterday, patient not candidate. 05/06: LpCT (pigtail) remains w air leak, (+) subcutaneous emphysema and muted phonation. Tendernessto left side remains. IR to exchange/upside LpCT today, will attempt blood patch once new CT is in place. Wean oxygen off, goal SpO2 88-94%. 05/07: LpCT (pigtail) remains w air leak, (+) subcutaneous emphysema. Blood patch performed yesterday. 05/08: LpCT (pigtail) with continuous air leak, subQ emphysema. 05/09: LpCT (pigtail) with continuous air leak, subQ emphysema. Addendum: patient have more subQ air on the left shoulder and neck area, with a bit change of voice. Still on room air sat 95%. Pigtail in the same position. Suction placed to -30mmHg. 05/10: LpCT (pigtail) with continuous air leak on -30mmHg suction, muted phonation. Recommend transfer to [place]. 05/11: LpCT (pigtail) with continuous air leak, on -30mmHg suction, muted phonation. Transfer attempted to [place]. Dr. Atkins and Dr. Weller discussed case, to additional options to offer at [place]. 05/12: LpCT (pigtail) continues to have air leak, suction weaned to -20mmHg per Dr. Atkins, repeat CXR 1145. 05/13/: cxr with increased ptx, LpCT (pigtail) continues to have air leak, suction to -30mmHg per Dr. Atkins 05/14: cxr worsened ptx, placed surgical chest tube Addendum: keep large chest tube to -30 suction, keep pigtail to water seal for now. CXR stable 05/15: + air leak on chest tube, subQ emphysema present. Clamped pig tail today, will repeat chest xray in 4 hours, unclamped due to worsening pneumothorax on CXR 05/16: + air leak on chest tube, subQ emphysema present. Continue pig tail today 05/17: +air leak on chest tube, subQ emphysema present. Continue both tubes today, consider transferto LTAC for chest tube management 05/18: + air leak, continue both tubes on -30 suction, may go to Ltac 05/19: air leak improving, subQ air improving, continue both chest tubes to -20 suction 05/20: Air leak improving. CXR stable. Continue chest tube to suction. 05/21: CXR stable. Suction turned down to -10. No air leak present this AM. 05/22: CXR stable, suction remains at -10mmHg, no air leak in either CT this morning. Keep CT x2 to suction at -10mmHg. Improvement in SQ air, voice stronger. 05/23: CXR stable, no air leak. CT x2 placed to waterseal, will repeat CXR at 12PM. OBJECTIVE: BP 104/66 Pulse 83 Temp 98 ??F (36.7 ??C) (Temporal) Resp 15 Ht 5' 11 (1.803 m) Wt 73.3 kg (161 lb 9.6 oz) SpO2 91% BMI 22.54 kg/m?? Intake/Output Summary (Last 24 hours) at 05/23/2025 0829 Last data filed at 05/23/2025 0600 Gross per 24 hour Intake 1120 ml Output 634 ml Net 486 ml Last documented weight: Weight: 73.3 kg (161 lb 9.6 oz) (05/22/25 0500) Weight: 75.6 kg (166 lb 10.7 oz) (04/24/25 1522) General appearance: Awake, alert, oriented to person, place, time and situation. No acute distress. Lungs: Respirations unlabored, lungs clear with equal air movement bilaterally. Left pleural chest tubes x 2 with no air leak, placed on water seal. Heart: S1/S2 audible, regular rate, regular rhythm, no clicks, rubs, murmurs. Extremities: moves all extremities without difficulty, no edema Neurologic: grossly normal Data Reviewed: CBC: Recent Labs 05/22/25 0940 WBC 12.9* HGB 11.7* HCT 35.8* PLT 464* MCV 91.1 BMP: Recent Labs 05/23/25 0705 GLUCOSE 110* BUN 36* CREAT 1.99* NA 132* K 5.2* CL 99 CO2 21* ANIONGAP 12 CA 9.2 Hemoglobin A1C: No results found for: HGBA1C , [id number] LFTs: No results for input(s): ALKPHOS , ALT , AST , BILITOTAL , ALBUMIN , AMYLASE , LIPASE in the last 72 hours. Coagulation: No results for input(s): PT , INR , APTT in the last 72 hours. ASSESSMENT: Active Hospital Problems Diagnosis Hypertension, essential Moderate protein-calorie malnutrition Chronic kidney disease, stage IV (severe) (CMS/HCC) Acute respiratory failure with hypoxia (CMS/HCC) Secondary spontaneous pneumothorax Cigarette smoker Elevated serum creatinine Hyperkalemia Resolved Hospital Problems No resolved problems to display. CXR (05/23/2025): PLAN: Left pneumothorax -Encourage ambulation w chest tubes on suction. -No air leak in either chest tube this AM. -Chest tubes placed on water seal this morning. -Repeat CXR at 12PM. If stable, will keep on water seal and consider clamp trial tomorrow. -CTS will continue to follow. Zabrina Bynum, Sunshine, MPAS, ZAINAB SU Cardiac and Thoracic Surgery Cosigned by Puma Atkins MD at 05/23/2025 4:01 PM CDT * Roel Andujar MD - 05/22/2025 1:22 PM CDT Images from the original note were not included. [employer] is our life's work [facility] Hospitalist/Hospital Medicine Progress note LOS: LOS: 28 days Room/Bed: [id number] Patient name: Froylan Yan Date of : 1965 HOSPITAL COURSE SUMMARY Summary: Froylan Yan is a 60-year-old male with a significant history of cigarette smoking, hypertension, and chronic kidney disease who was admitted to [facility] on 04/24/2025 for evaluation and management of a secondary spontaneous pneumothorax after presenting to an outside emergency department with sudden onset of left-sided chest pain and shortness of breath. 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 During hospitalization, he experienced acute decompensation with recurrent large left pneumothorax and partial lung collapse after the initial chest tube became dislodged, necessitating transfer to the ICU and emergent repeat chest tube placement; this was confirmed by stat chest x-ray and managed with continuous wall suction and serial imaging. Pulmonology and cardiothoracic surgery were consulted for ongoing management of the persistent air leak and subcutaneous emphysema, and daily chest x-rays were obtained to monitor lung re-expansion and tube position. Despite chest tube management, he continued to have a persistent expiratory air leak and subcutaneous emphysema, and underwent bedsidetalc pleurodesis on 05/01/2025, which did not resolve the air leak. A subsequent attempt at endobronchial valve placement on 05/04/2025 was unsuccessful due to collateral ventilation, as determined by intra-procedural balloon occlusion testing during bronchoscopy. Throughout the admission, he required supplemental oxygen, initially up to 15 L, which was gradually weaned as tolerated; he remained on low-flow nasal cannula at the time of most recent documentation, with SpO2 maintained between 88-94%. He developed moderate protein-calorie malnutrition, as assessed by the nutrition team, and was started on oral nutrition supplements and a potassium-controlled diet. 05/05: Patient continues to have persistent air leak despite chest tube being place to suction. Willdiscuss with CTS. 05/06: Patient continues to have air leak. CTS planning on blood patch to see if this will resolve the air leak, otherwise patient will need to be potentially transferred to higher level of care. 05/07-: Patient had blood patch. Repeat chest X-ray ordered to evaluate pneumothorax. 05/09: Patient continues to have persistent pneumothorax with air leak. 05/10-: No changes. Attempting to transfer patient to higher level of care. 05/12: Cardiothoracic surgery did speak with [facility] and they had nothing further to offer. Repeat x-raythis morning showing some slight improvement. Placed back on suction and then repeat chest x-ray inthe afternoon showing no significant change from morning. Repeat x-ray in the morning 05/13: Suction increased to -30mmHg. 05/14: New apical large bore chest tube placed with improvement of PTX. 05/15: Clinically stable. CT surgery is following, they clamped pigtail today. 05/16: continued pigtail drain 05/17: cxr showed increased left basilar pneumothorax, CT surgery recommending LTAC for chest tube management 05/18: both chest tube in suction now, CT surgery recommending LTAC. CM working on it. Start ceftriaxone due to consolidation in left lower lobe & leukocytosis. 05/19: chest tube down to -20 suction, pt complaining of numbness in left hand on ulnar nerve distribution, no motor weakness, ?ulnar neuropathy. Start gabapentin 05/20: air leak improving, pt declined by [facility], he declined to go to LTACH in [place]. 05/21 assigned/assumed care patient with persistent spontaneous pneumothorax with unsuccessful talc pleurodesis. Suction down to -10 no airleak present with plan to keep both chest tubes to -10 suction for 2 days and CTS will continue to follow and manage 05/22 suction remains at -10 m mercury, no airleak in either CT continue to keep the chest tubes to suction at -10 mmHg, plan to monitor patient 24 hours after removing chest tubes to assess for recurrent pneumothorax Consultants During this admission: IP CONSULT TO PULMONOLOGY IP CONSULT TO NEPHROLOGY IP CONSULT TO IV TEAM SUBJECTIVE: Patient was seen and examined at bedside. 05/22 Review of System: Negative except as above 05/22 OBJECTIVE: Temp (24hrs), Av.2 ??F (36.8 ??C), Min:97.3 ??F (36.3 ??C), Max:98.9 ??F (37.2 ??C) BP 111/82 (BP Location: Left arm, Patient Position (BP): Supine) Pulse 83 Temp 98.5 ??F (36.9 ??C) (Temporal) Resp 19 Ht 5' 11 (1.803 m) Wt 73.3 kg (161 lb 9.6 oz) SpO2 91% BMI 22.54 kg/m?? Intake/Output Summary (Last 24 hours) at 05/22/2025 1322 Last data filed at 05/22/2025 1300 Gross per 24 hour Intake 1120 ml Output 133 ml Net 987 ml Last documented weight: Weight: 73.3 kg (161 lb 9.6 oz) (05/22/25 0500) RE Examined at bedside 05/22 GENERAL APPEARANCE: alert, oriented, affect appropriate,following commands HEENT: PERRL, conjunctiva/ lids clear, neck supple, NEURO:CN2-12 wnl, PERRL moving all extremities spontaneously and symmetrically, CARDIOVASCULAR: regular rate and rhythm, S1, S2 normal, no murmur, click, rub or gallop, LUNGS: Slightly diminished in left to auscultation bilaterally anteriorly and posteriorly.No wheezing noted. No increased work of breathing noted at rest chest tubes in position CHEST WALL EXAM: no crepitance,nontender BACK: symmetric excursion, without spinous or cva tenderness bilat ABDOMEN: benign, normoactive bowel sounds, no organomegaly or masses, no rebound , no guarding, Non distended, soft, nontender to mod diffuse palpation EXTREMITIES: extremities without edema, no cyanosis, warm and well perfused,No calf or thigh erythema,tenderness or edema, SKIN: intact, no jaundice, IV sites clean, dry LABORATORY Recent Labs 05/20/25 0049 05/22/25 0940 WBC 12.5* 12.9* HGB 11.8* 11.7* HCT 36.5* 35.8* PLT 502* 464* Recent Labs 05/20/25 0049 NA 135* K 4.6 CL 103 CO2 21* CA 8.8 BUN 31* CREAT 1.75* GLUCOSE 102* Recent Labs 05/20/25 0049 ALBUMIN 3.3* No results for input(s): INR , PT in the last 72 hours. Invalid input(s): PTT No results for input(s): BASETROP , 2HRTROP , DELTA , 6HRTROP in the last 72 hours. MEDICATIONS ENTOMOLOGY PROFESSOR medications reviewed. Medications Prior to Admission Medication Sig Dispense Refill Last Dose/Taking lisinopriL (PRINIVIL) 40 mg tablet Take 40 mg by mouth daily. Taking dapagliflozin propanediol (Farxiga) 5 mg Tablet Take 5 mg by mouth daily. Taking Inpatient Medications and relevant orders were reviewed. Pertinent lab data, most recent imaging, ENTOMOLOGY PROFESSOR and current medications were reviewed. Problem List: Primary Discharge Diagnosis: Secondary spontaneous pneumothorax Other Active medical issues also addressed during this admission: Active Hospital Problems Diagnosis Hypertension, essential Moderate protein-calorie malnutrition Chronic kidney disease, stage IV (severe) (CMS/HCC) Acute respiratory failure with hypoxia (CMS/HCC) Secondary spontaneous pneumothorax Cigarette smoker Elevated serum creatinine Hyperkalemia Resolved Hospital Problems No resolved problems to display. Assessment and Plan Acute Problems: Acute hypoxemic respiratory failure, resolved Secondary spontaneous pneumothorax, left - Initially presented on 04/24 at [facility] ED due to chest pain and shortness of breath having large pneumothorax - CT chest showed large left pneumothorax with left sided chest tube, pneumomediastinum and subcutaneous emphysema, advanced pulmonary emphysema, mass like opacity in left lower lobe - Chest tube was placed and transferred here - persistent air leak - s/p pleurodesis 05/01, unsuccessful - s/p endobronchial valve testing 05/04, not a candidate due to collateral ventilation - s/p blood patch 05/06 - pt continues to have air leak, CT surgery discussed with [facility] cardiothoracic surgery, nothing further to offer - s/p large bore chest tube 05/14 due to worsened pneumothorax, placed in suction at -30 - both chest tubes in suction now - CT surgery recommending LTAC disposition - ceftriaxone x 5 days for possible pneumonia on left lower lobe - Chest tubes in position ,remaining at -10 for 48 hours as per CTS,continues same 05/22 - Plan is to monitor patient for 24 hours after the chest tubes are removed with a follow-up chest x-ray at that time to evaluate for recurrent pneumothorax ATN/?CKD - renal function improving - monitor creatinine - Currently at 1.75 which is his baseline - Maintain MAP greater than 65 Chronic active problems: HTN - c/w lisinopril Code status: Full Code Diet: DIET GENERAL Effective Now DVT prophylaxis: Heparin GLYCEMIC CONTROL GLUCOSE and POC GLUCOSE reviewed No results found for: GLUCOSE , GLUCPOC NUTRITIONAL STATUS Nutrition Status: Malnutrition Nutrition Diagnosis: Moderate protein-calorie malnutrition Provider Assessment/Plan: Symptoms/Signs/Physical Exam: Cachexia, Muscle Wasting, Subcutaneous Fat Loss, Poor Appetite, and Weight Loss Etiology: Acute illness and Chronic illness Nutrition Treatment Plan: - Current Diet and/or Nutritional Supplementation ordered: DIET GENERAL Effective Now - Daily weights Impact of Malnutrition on patient condition and outcomes: Reduced oral intake, Increased dysphagia, Delayed recovery, Decreased ability to perform activities, Respiratory deterioration, and Poor wound healing DISPOSITION AND DISCHARGE BARRIERS Location: Final Discharge Disposition: Home or Self Care Timeframe: 05/24/2025 Criteria: Clinical improvement UNDERSTANDING OF ILLNESS Discussed with the patient about current medical problems, diagnostic modalities, treatment plan and they acknowledge understanding. [facility] mod level 2 Care included, Preparing to see the patient, Obtaining and/or reviewing separately obtained history, Performing a medically appropriate examination and/or evaluation, Counseling and educating the patient/family/caregiver, Ordering medications, tests or procedures, Documenting clinical information in the medical record, Referring and communication with other health urgent care technician (not separately reported), and Independently interpreting results and communicating results to the patient/family/caregiver (not separately reported). POCV with CATIE Jones, [facility] Parts of this note were transcribed using an automated dictation software. Efforts have been made to assure accuracy of the roving sizer. Any obvious errors or omissions should be clarified with theauthor of the document. * Zabrina Bynum PA-C - 05/22/2025 8:50 AM CDT Images from the original note were not included. Cardiothoracic Surgery Progress Note Admit Date: 04/24/2025 Hospital day: LOS: 28 days SUBJECTIVE: Patient sitting up to side of bed. States he feels OK this morning. He has noticed is a little lessshort of breath when moving around. No air leak in either CT with inspiration/expiration/coughing/forced expiration. 05/03: Chest tube with air leak. Will discuss with Dr. Trammell. 05/04: Left pleural chest tube (pigtail) with air leak, (+) subcutaneous emphysema along left chest wall, patient reports tenderness on exam. Pigtail kinked - adjusted. Repeat CXR. 05/05: LpCT (pigtail) remains w air leak, (+) subcutaneous emphysema and muted phonation. Tendernessto left side remains. EBV unable to be placed yesterday, patient not candidate. 05/06: LpCT (pigtail) remains w air leak, (+) subcutaneous emphysema and muted phonation. Tendernessto left side remains. IR to exchange/upside LpCT today, will attempt blood patch once new CT is in place. Wean oxygen off, goal SpO2 88-94%. 05/07: LpCT (pigtail) remains w air leak, (+) subcutaneous emphysema. Blood patch performed yesterday. 05/08: LpCT (pigtail) with continuous air leak, subQ emphysema. 05/09: LpCT (pigtail) with continuous air leak, subQ emphysema. Addendum: patient have more subQ air on the left shoulder and neck area, with a bit change of voice. Still on room air sat 95%. Pigtail in the same position. Suction placed to -30mmHg. 05/10: LpCT (pigtail) with continuous air leak on -30mmHg suction, muted phonation. Recommend transfer to [place]. 05/11: LpCT (pigtail) with continuous air leak, on -30mmHg suction, muted phonation. Transfer attempted to [place]. Dr. Atkins and Dr. Weller discussed case, to additional options to offer at [place]. 05/12: LpCT (pigtail) continues to have air leak, suction weaned to -20mmHg per Dr. Atkins, repeat CXR 1145. 05/13/: cxr with increased ptx, LpCT (pigtail) continues to have air leak, suction to -30mmHg per Dr. Atkins 05/14: cxr worsened ptx, placed surgical chest tube Addendum: keep large chest tube to -30 suction, keep pigtail to water seal for now. CXR stable 05/15: + air leak on chest tube, subQ emphysema present. Clamped pig tail today, will repeat chest xray in 4 hours, unclamped due to worsening pneumothorax on CXR 05/16: + air leak on chest tube, subQ emphysema present. Continue pig tail today 05/17: +air leak on chest tube, subQ emphysema present. Continue both tubes today, consider transferto LTAC for chest tube management 05/18: + air leak, continue both tubes on -30 suction, may go to Ltac 05/19: air leak improving, subQ air improving, continue both chest tubes to -20 suction 05/20: Air leak improving. CXR stable. Continue chest tube to suction. 05/21: CXR stable. Suction turned down to -10. No air leak present this AM. 05/22: CXR stable, suction remains at -10mmHg, no air leak in either CT this morning. Keep CT x2 to suction at -10mmHg. Improvement in SQ air, voice stronger. OBJECTIVE: BP 137/71 (BP Location: Left arm, Patient Position (BP): Sitting) Pulse 83 Temp 98.2 ??F (36.8 ??C) (Temporal) Resp 23 Ht 5' 11 (1.803 m) Wt 73.3 kg (161 lb 9.6 oz) SpO2 91% BMI 22.54 kg/m?? Intake/Output Summary (Last 24 hours) at 05/22/2025 0850 Last data filed at 05/22/2025 0755 Gross per 24 hour Intake 400 ml Output 131 ml Net 269 ml Last documented weight: Weight: 73.3 kg (161 lb 9.6 oz) (05/22/25 0500) Weight: 75.6 kg (166 lb 10.7 oz) (04/24/25 1522) General appearance: Awake, alert, oriented to person, place, time and situation. No acute distress. Lungs: Respirations unlabored, lungs clear with equal air movement bilaterally. Left pleural chest tubes x 2 remain to suction with no air leak. Heart: S1/S2 audible, regular rate, regular rhythm, no clicks, rubs, murmurs. Extremities: moves all extremities without difficulty, no edema Neurologic: grossly normal Data Reviewed: CBC: Recent Labs 05/20/25 0049 WBC 12.5* HGB 11.8* HCT 36.5* PLT 502* MCV 90.6 BMP: Recent Labs 05/20/25 0049 GLUCOSE 102* BUN 31* CREAT 1.75* NA 135* K 4.6 CL 103 CO2 21* ANIONGAP 11 CA 8.8 PO4 4.7* Hemoglobin A1C: No results found for: HGBA1C , [id number] LFTs: Recent Labs 05/20/25 0049 ALBUMIN 3.3* Coagulation: No results for input(s): PT , INR , APTT in the last 72 hours. ASSESSMENT: Active Hospital Problems Diagnosis Hypertension, essential Moderate protein-calorie malnutrition Chronic kidney disease, stage IV (severe) (CMS/HCC) Acute respiratory failure with hypoxia (CMS/HCC) Secondary spontaneous pneumothorax Cigarette smoker Elevated serum creatinine Hyperkalemia Resolved Hospital Problems No resolved problems to display. CXR (05/22/2025): PLAN: Left pneumothorax -Encourage ambulation w chest tubes on suction. -No air leak in either chest tube this AM. -Keep both chest tubes to -10mmHg continuous suction (day #2). -CTS will continue to follow. Sunshine Dos Santos, MPAS, SHARLENE, PA-C Cardiac and Thoracic Surgery Cosigned by Puma Atkins MD at 05/22/2025 4:58 PM CDT * Violette Mulligan RD - 05/21/2025 5:04 PM CDT Patient seen/chart reviewed during routine patient care/meal rounds. Nutritional status/assessment: PO intake appears adequate for nutritional needs. No additional acute care nutritional risk factorsidentified. Malnutrition Nutrition Diagnosis: Moderate protein-calorie malnutrition (05/03/25 1300) Recommendation/Plan for follow up: Will continue to follow during weekly patient care/meal rounds, assisting with intake needs as appropriate. Current diet/nutrition support: DIET GENERAL Effective Now Food/Meal: Lunch (05/21/25 1520),Intake (%): 100% (05/21/25 1520) Oral Supplement Type: Complete oral supplement-adult (05/18/25 1117) Weight status/changes: Weight: 75.7 kg (166 lb 14.2 oz) (05/21/25 0330) Admission :Weight: 75.6 kg (166 lb 10.7 oz) (04/24/25 1522) Height: 5' 11 (180.3 cm) (04/24/25 1522) Body mass index is 23.28 kg/m??. Wt Readings from Last 8 Encounters: 05/21/25 75.7 kg (166 lb 14.2 oz) Additional assessment indices: Lopez Score: 21 (05/21/25 0740) Last Bowel Movement (mm/dd/yyyy): 05/20/25 (05/20/25 1200) Bowel Sounds: All Quadrants: (normoactive) (05/19/25 0300) Allergies No Known Allergies Labs: Lab Results Component Value Date GLUCOSE 102 (H) 05/20/2025 * Roel Andujar MD - 05/21/2025 2:12 PM CDT Images from the original note were not included. [employer] is our life's work [facility] Hospitalist/[place] [facility] Medicine Progress note LOS: LOS: 27 days Room/Bed: 42/ Patient name: Froylan Yan Date of : 1965 HOSPITAL COURSE SUMMARY Summary: Froylan Yan is a 60-year-old male with a significant history of cigarette smoking, hypertension, and chronic kidney disease who was admitted to [facility] on 04/24/2025 for evaluation and management of a secondary spontaneous pneumothorax after presenting to an outside emergency department with sudden onset of left-sided chest pain and shortness of breath. 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 During hospitalization, he experienced acute decompensation with recurrent large left pneumothorax and partial lung collapse after the initial chest tube became dislodged, necessitating transfer to the ICU and emergent repeat chest tube placement; this was confirmed by stat chest x-ray and managed with continuous wall suction and serial imaging. Pulmonology and cardiothoracic surgery were consulted for ongoing management of the persistent air leak and subcutaneous emphysema, and daily chest x-rays were obtained to monitor lung re-expansion and tube position. Despite chest tube management, he continued to have a persistent expiratory air leak and subcutaneous emphysema, and underwent bedsidetalc pleurodesis on 05/01/2025, which did not resolve the air leak. A subsequent attempt at endobronchial valve placement on 05/04/2025 was unsuccessful due to collateral ventilation, as determined by intra-procedural balloon occlusion testing during bronchoscopy. Throughout the admission, he required supplemental oxygen, initially up to 15 L, which was gradually weaned as tolerated; he remained on low-flow nasal cannula at the time of most recent documentation, with SpO2 maintained between 88-94%. He developed moderate protein-calorie malnutrition, as assessed by the nutrition team, and was started on oral nutrition supplements and a potassium-controlled diet. 05/05: Patient continues to have persistent air leak despite chest tube being place to suction. Willdiscuss with CTS. 05/06: Patient continues to have air leak. CTS planning on blood patch to see if this will resolve the air leak, otherwise patient will need to be potentially transferred to higher level of care. 05/07-: Patient had blood patch. Repeat chest X-ray ordered to evaluate pneumothorax. 05/09: Patient continues to have persistent pneumothorax with air leak. 05/10-: No changes. Attempting to transfer patient to higher level of care. 05/12: Cardiothoracic surgery did speak with [facility] and they had nothing further to offer. Repeat x-raythis morning showing some slight improvement. Placed back on suction and then repeat chest x-ray inthe afternoon showing no significant change from morning. Repeat x-ray in the morning 05/13: Suction increased to -30mmHg. 05/14: New apical large bore chest tube placed with improvement of PTX. 05/15: Clinically stable. CT surgery is following, they clamped pigtail today. 05/16: continued pigtail drain 05/17: cxr showed increased left basilar pneumothorax, CT surgery recommending LTAC for chest tube management 05/18: both chest tube in suction now, CT surgery recommending LTAC. CM working on it. Start ceftriaxone due to consolidation in left lower lobe & leukocytosis. 05/19: chest tube down to -20 suction, pt complaining of numbness in left hand on ulnar nerve distribution, no motor weakness, ?ulnar neuropathy. Start gabapentin 05/20: air leak improving, pt declined by [facility], he declined to go to LTACH in [place]. 05/21 assigned/assumed care patient with persistent spontaneous pneumothorax with unsuccessful talc pleurodesis. Suction down to -10 no airleak present with plan to keep both chest tubes to -10 suction for 2 days and CTS will continue to follow and manage Consultants During this admission: IP CONSULT TO PULMONOLOGY IP CONSULT TO NEPHROLOGY IP CONSULT TO IV TEAM SUBJECTIVE: Patient was seen and examined at bedside. 05/21 Review of System: Negative except as above 05/21 OBJECTIVE: Temp (24hrs), Av.2 ??F (36.8 ??C), Min:97.8 ??F (36.6 ??C), Max:98.9 ??F (37.2 ??C) BP 123/80 (BP Location: Left arm, Patient Position (BP): Supine) Pulse 83 Temp 98.1 ??F (36.7 ??C) (Temporal) Resp 15 Ht 5' 11 (1.803 m) Wt 75.7 kg (166 lb 14.2 oz) SpO2 91% BMI 23.28 kg/m?? Intake/Output Summary (Last 24 hours) at 05/21/2025 1412 Last data filed at 05/21/2025 0845 Gross per 24 hour Intake 740 ml Output 761 ml Net -21 ml Last documented weight: Weight: 75.7 kg (166 lb 14.2 oz) (05/21/25 0330) Examined at bedside 05/21 GENERAL APPEARANCE: alert, oriented, affect appropriate,following commands HEENT: PERRL, conjunctiva/ lids clear, neck supple, NEURO:CN2-12 wnl, PERRL moving all extremities spontaneously and symmetrically, CARDIOVASCULAR: regular rate and rhythm, S1, S2 normal, no murmur, click, rub or gallop, LUNGS: Slightly diminished in left to auscultation bilaterally anteriorly and posteriorly.No wheezing noted. No increased work of breathing noted at rest chest tubes in position CHEST WALL EXAM: no crepitance,nontender BACK: symmetric excursion, without spinous or cva tenderness bilat ABDOMEN: benign, normoactive bowel sounds, no organomegaly or masses, no rebound , no guarding, Non distended, soft, nontender to mod diffuse palpation EXTREMITIES: extremities without edema, no cyanosis, warm and well perfused,No calf or thigh erythema,tenderness or edema, SKIN: intact, no jaundice, IV sites clean, dry LABORATORY Recent Labs 05/19/2514605/20/2548 WBC 13.0* 12.5* HGB 12.0* 11.8* HCT 36.3* 36.5* PLT 483* 502* Recent Labs 05/19/2514605/20/2548 NA 136 135* K 4.5 4.6 CL 103 103 CO2 22 21* CA 8.9 8.8 BUN 32* 31* CREAT 1.70* 1.75* GLUCOSE 106* 102* Recent Labs 05/19/2514605/20/2548 ALBUMIN 3.3* 3.3* No results for input(s): INR , PT in the last 72 hours. Invalid input(s): PTT No results for input(s): BASETROP , 2HRTROP , DELTA , 6HRTROP in the last 72 hours. MEDICATIONS ENTOMOLOGY PROFESSOR medications reviewed. Medications Prior to Admission Medication Sig Dispense Refill Last Dose/Taking lisinopriL (PRINIVIL) 40 mg tablet Take 40 mg by mouth daily. Taking dapagliflozin propanediol (Farxiga) 5 mg Tablet Take 5 mg by mouth daily. Taking Inpatient Medications and relevant orders were reviewed. Pertinent lab data, most recent imaging, ENTOMOLOGY PROFESSOR and current medications were reviewed. Problem List: Primary Discharge Diagnosis: Secondary spontaneous pneumothorax Other Active medical issues also addressed during this admission: Active Hospital Problems Diagnosis Hypertension, essential Moderate protein-calorie malnutrition Chronic kidney disease, stage IV (severe) (CMS/HCC) Acute respiratory failure with hypoxia (CMS/HCC) Secondary spontaneous pneumothorax Cigarette smoker Elevated serum creatinine Hyperkalemia Resolved Hospital Problems No resolved problems to display. Assessment and Plan Acute Problems: Acute hypoxemic respiratory failure, resolved Secondary spontaneous pneumothorax, left - Initially presented on 04/24 at [facility] ED due to chest pain and shortness of breath having large pneumothorax - CT chest showed large left pneumothorax with left sided chest tube, pneumomediastinum and subcutaneous emphysema, advanced pulmonary emphysema, mass like opacity in left lower lobe - Chest tube was placed and transferred here - persistent air leak - s/p pleurodesis 05/01, unsuccessful - s/p endobronchial valve testing 05/04, not a candidate due to collateral ventilation - s/p blood patch 05/06 - pt continues to have air leak, CT surgery discussed with [facility] cardiothoracic surgery, nothing further to offer - s/p large bore chest tube 05/14 due to worsened pneumothorax, placed in suction at -30 - both chest tubes in suction now - CT surgery recommending LTAC disposition - ceftriaxone x 5 days for possible pneumonia on left lower lobe - Chest tubes in position ,remaining at -10 for 48 hours as per CTS ATN/?CKD - renal function improving - monitor creatinine - Currently at 1.75 which is his baseline - Maintain MAP greater than 65 Chronic active problems: HTN - c/w lisinopril Code status: Full Code Diet: DIET GENERAL Effective Now DVT prophylaxis: Heparin GLYCEMIC CONTROL GLUCOSE and POC GLUCOSE reviewed No results found for: GLUCOSE , GLUCPOC NUTRITIONAL STATUS Nutrition Status: Malnutrition Nutrition Diagnosis: Moderate protein-calorie malnutrition Provider Assessment/Plan: Symptoms/Signs/Physical Exam: Cachexia, Muscle Wasting, Subcutaneous Fat Loss, Poor Appetite, and Weight Loss Etiology: Acute illness and Chronic illness Nutrition Treatment Plan: - Current Diet and/or Nutritional Supplementation ordered: DIET GENERAL Effective Now - Daily weights Impact of Malnutrition on patient condition and outcomes: Reduced oral intake, Increased dysphagia, Delayed recovery, Decreased ability to perform activities, Respiratory deterioration, and Poor wound healing DISPOSITION AND DISCHARGE BARRIERS Location: Final Discharge Disposition: Home or Self Care Timeframe: 05/24/2025 Criteria: Clinical improvement UNDERSTANDING OF ILLNESS Discussed with the patient about current medical problems, diagnostic modalities, treatment plan and they acknowledge understanding. Mdm mod level 2 Care included, Preparing to see the patient, Obtaining and/or reviewing separately obtained history, Performing a medically appropriate examination and/or evaluation, Counseling and educating the patient/family/caregiver, Ordering medications, tests or procedures, Documenting clinical information in the medical record, Referring and communication with other health urgent care technician (not separately reported), and Independently interpreting results and communicating results to the patient/family/caregiver (not separately reported). POCV Hospitalist, [facility] Parts of this note were transcribed using an automated dictation software. Efforts have been made to assure accuracy of the roving sizer. Any obvious errors or omissions should be clarified with theauthor of the document. * Antony Galan PA-C - 05/21/2025 8:41 AM CDT Cardiothoracic Surgery Progress Note Admit Date: 04/24/2025 Hospital day: LOS: 27 days SUBJECTIVE: Patient sitting in bed eating breakfast this morning. Denies any new concerns. Air leak still present in surgical tube not present in pig tail. 05/03: Chest tube with air leak. Will discuss with Dr. Trammell. 05/04: Left pleural chest tube (pigtail) with air leak, (+) subcutaneous emphysema along left chest wall, patient reports tenderness on exam. Pigtail kinked - adjusted. Repeat CXR. 05/05: LpCT (pigtail) remains w air leak, (+) subcutaneous emphysema and muted phonation. Tendernessto left side remains. EBV unable to be placed yesterday, patient not candidate. 05/06: LpCT (pigtail) remains w air leak, (+) subcutaneous emphysema and muted phonation. Tendernessto left side remains. IR to exchange/upside LpCT today, will attempt blood patch once new CT is in place. Wean oxygen off, goal SpO2 88-94%. 05/07: LpCT (pigtail) remains w air leak, (+) subcutaneous emphysema. Blood patch performed yesterday. 05/08: LpCT (pigtail) with continuous air leak, subQ emphysema. 05/09: LpCT (pigtail) with continuous air leak, subQ emphysema. Addendum: patient have more subQ air on the left shoulder and neck area, with a bit change of voice. Still on room air sat 95%. Pigtail in the same position. Suction placed to -30mmHg. 05/10: LpCT (pigtail) with continuous air leak on -30mmHg suction, muted phonation. Recommend transfer to [place]. 05/11: LpCT (pigtail) with continuous air leak, on -30mmHg suction, muted phonation. Transfer attempted to [place]. Dr. Atkins and Dr. Weller discussed case, to additional options to offer at [place]. 05/12: LpCT (pigtail) continues to have air leak, suction weaned to -20mmHg per Dr. Atkins, repeat CXR 1145. 05/13/: cxr with increased ptx, LpCT (pigtail) continues to have air leak, suction to -30mmHg per Dr. Atkins 05/14: cxr worsened ptx, placed surgical chest tube Addendum: keep large chest tube to -30 suction, keep pigtail to water seal for now. CXR stable 05/15: + air leak on chest tube, subQ emphysema present. Clamped pig tail today, will repeat chest xray in 4 hours, unclamped due to worsening pneumothorax on CXR 05/16: + air leak on chest tube, subQ emphysema present. Continue pig tail today 05/17: +air leak on chest tube, subQ emphysema present. Continue both tubes today, consider transferto LTAC for chest tube management 05/18: + air leak, continue both tubes on -30 suction, may go to Ltac 05/19: air leak improving, subQ air improving, continue both chest tubes to -20 suction 05/20-Air leak improving. CXR stable. Continue chest tube to suction. 05/21-CXR stable. Suction turned down to -10. No air leak present this AM. OBJECTIVE: BP 113/74 (BP Location: Left arm, Patient Position (BP): Supine) Pulse 83 Temp 98.9 ??F (37.2 ??C) (Temporal) Resp 16 Ht 5' 11 (1.803 m) Wt 75.7 kg (166 lb 14.2 oz) SpO2 91% BMI 23.28 kg/m?? Intake/Output Summary (Last 24 hours) at 05/21/2025 0841 Last data filed at 05/21/2025 0700 Gross per 24 hour Intake 1440 ml Output 762 ml Net 678 ml Last documented weight: Weight: 75.7 kg (166 lb 14.2 oz) (05/21/25 0330) Weight: 75.6 kg (166 lb 10.7 oz) (04/24/25 1522) General appearance: Alert, in no acute distress. Lungs: Normal effort. Heart: RR Abdomen: soft, non tender. Extremities: moves all extremities without difficulty, edema Incisions: dressings dry and intact Neurologic: grossly normal Data Reviewed: CBC: Recent Labs 05/19/25 0147 05/20/25 004 WBC 13.0* 12.5* HGB 12.0* 11.8* HCT 36.3* 36.5* PLT 483* 502* MCV 89.6 90.6 BMP: Recent Labs 05/19/25 0147 05/20/25 004 GLUCOSE 106* 102* BUN 32* 31* CREAT 1.70* 1.75* NA 136 135* K 4.5 4.6 CL 103 103 CO2 22 21* ANIONGAP 11 11 CA 8.9 8.8 PO4 3.9 4.7* Hemoglobin A1C: No results found for: HGBA1C , [id number] LFTs: Recent Labs 05/19/25 0147 05/20/25 0049 ALBUMIN 3.3* 3.3* Coagulation: No results for input(s): PT , INR , APTT in the last 72 hours. ASSESSMENT: Active Hospital Problems Diagnosis Hypertension, essential Moderate protein-calorie malnutrition Chronic kidney disease, stage IV (severe) (CMS/HCC) Acute respiratory failure with hypoxia (CMS/HCC) Secondary spontaneous pneumothorax Cigarette smoker Elevated serum creatinine Hyperkalemia Resolved Hospital Problems No resolved problems to display. CXR Stable PLAN: Left pneumothorax -No air leak this AM -keep both chest tubes to -10 suction, for 2 days. -CTS will continue to follow. Antony Galan PA-C Cardiothoracic Surgery Cosigned by Puma Atkins MD at 05/21/2025 12:06 PM CDT * Duc Camp MD - 05/20/2025 11:59 AM CDT Images from the original note were not included. [employer] is our life's work [facility] Hospitalist/Hospital Medicine Progress note LOS: LOS: 26 days Room/Bed: [address] [place] [address] Patient name: Froylan Yan Date of : 1965 HOSPITAL COURSE SUMMARY Summary: Froylan Yan is a 60-year-old male with a significant history of cigarette smoking, hypertension, and chronic kidney disease who was admitted to [facility] on 04/24/2025 for evaluation and management of a secondary spontaneous pneumothorax after presenting to an outside emergency department with sudden onset of left-sided chest pain and shortness of breath. 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 During hospitalization, he experienced acute decompensation with recurrent large left pneumothorax and partial lung collapse after the initial chest tube became dislodged, necessitating transfer to the ICU and emergent repeat chest tube placement; this was confirmed by stat chest x-ray and managed with continuous wall suction and serial imaging. Pulmonology and cardiothoracic surgery were consulted for ongoing management of the persistent air leak and subcutaneous emphysema, and daily chest x-rays were obtained to monitor lung re-expansion and tube position. Despite chest tube management, he continued to have a persistent expiratory air leak and subcutaneous emphysema, and underwent bedsidetalc pleurodesis on 05/01/2025, which did not resolve the air leak. A subsequent attempt at endobronchial valve placement on 05/04/2025 was unsuccessful due to collateral ventilation, as determined by intra-procedural balloon occlusion testing during bronchoscopy. Throughout the admission, he required supplemental oxygen, initially up to 15 L, which was gradually weaned as tolerated; he remained on low-flow nasal cannula at the time of most recent documentation, with SpO2 maintained between 88-94%. He developed moderate protein-calorie malnutrition, as assessed by the nutrition team, and was started on oral nutrition supplements and a potassium-controlled diet. 05/05: Patient continues to have persistent air leak despite chest tube being place to suction. Willdiscuss with CTS. 05/06: Patient continues to have air leak. CTS planning on blood patch to see if this will resolve the air leak, otherwise patient will need to be potentially transferred to higher level of care. 05/07-: Patient had blood patch. Repeat chest X-ray ordered to evaluate pneumothorax. 05/09: Patient continues to have persistent pneumothorax with air leak. 05/10-: No changes. Attempting to transfer patient to higher level of care. 05/12: Cardiothoracic surgery did speak with [facility] and they had nothing further to offer. Repeat x-raythis morning showing some slight improvement. Placed back on suction and then repeat chest x-ray inthe afternoon showing no significant change from morning. Repeat x-ray in the morning 05/13: Suction increased to -30mmHg. 05/14: New apical large bore chest tube placed with improvement of PTX. 05/15: Clinically stable. CT surgery is following, they clamped pigtail today. 05/16: continued pigtail drain 05/17: cxr showed increased left basilar pneumothorax, CT surgery recommending LTAC for chest tube management 05/18: both chest tube in suction now, CT surgery recommending LTAC. CM working on it. Start ceftriaxone due to consolidation in left lower lobe & leukocytosis. 05/19: chest tube down to -20 suction, pt complaining of numbness in left hand on ulnar nerve distribution, no motor weakness, ?ulnar neuropathy. Start gabapentin 05/20: air leak improving, pt declined by select LTAC, he declined to go to [facility] in [place]. Consultants During this admission: IP CONSULT TO PULMONOLOGY IP CONSULT TO NEPHROLOGY IP CONSULT TO IV TEAM SUBJECTIVE: Patient was seen and examined at bedside. Comfortable at bedside. Review of System: A 12-point ROS was negative except for those mentioned. OBJECTIVE: Temp (24hrs), Av.1 ??F (36.7 ??C), Min:97.5 ??F (36.4 ??C), Max:98.5 ??F (36.9 ??C) BP 125/69 Pulse 83 Temp 97.5 ??F (36.4 ??C) (Temporal) Resp 22 Ht 5' 11 (1.803 m) Wt 72.2 kg (159 lb 2.8 oz) SpO2 91% BMI 22.20 kg/m?? Intake/Output Summary (Last 24 hours) at 05/20/2025 1159 Last data filed at 05/20/2025 1000 Gross per 24 hour Intake 690 ml Output 11 ml Net 679 ml Last documented weight: Weight: 72.2 kg (159 lb 2.8 oz) (05/20/25 0500) General: no acute distress HEENT: PERRLA, EOMI, neck supple. Heart: regular rhythm, no murmur Lungs: normal respiratory effort, decreased breath sounds on left, [address] Abdomen: soft, nontender, no organomegaly GENITOURINARY: No suprapubic tenderness. No CVA tenderness Skin: intact MUSCULOSKELETAL: moves all extremities EXTREMITIES: no edema PSYCHIATRIC: No agitation or delirium HEMATOLOGIC/LYMPHATIC/IMMUNOLOGIC: No cervical lymphadenopathy NEUROLOGIC: Awake, alert and oriented x4, No new gross focal motor deficits noted. LABORATORY Recent Labs 05/17/25231005/18/254 05/19/25 01405/20/25 0049 WBC 17.2* 15.1* 13.0* 12.5* HGB 12.4* 13.3* 12.0* 11.8* HCT 37.0* 40.1* 36.3* 36.5* PLT 517* 555* 483* 502* Recent Labs 05/17/25 23105/18/25 0454 05/19/25 0147 05/20/25 0049 NA 136 137 136 135* K 4.7 5.1 4.5 4.6 CL 103 103 103 103 CO2 22 23 22 21* CA 9.0 9.2 8.9 8.8 BUN 32* 31* 32* 31* CREAT 1.68* 1.73* 1.70* 1.75* GLUCOSE 113* 126* 106* 102* Recent Labs 05/17/25 2311 05/18/25 0454 05/19/25 0147 05/20/25 0049 ALBUMIN 3.3* 3.6 3.3* 3.3* No results for input(s): INR , PT in the last 72 hours. Invalid input(s): PTT No results for input(s): BASETROP , 2HRTROP , DELTA , 6HRTROP in the last 72 hours. MEDICATIONS ENTOMOLOGY PROFESSOR medications reviewed. Medications Prior to Admission Medication Sig Dispense Refill Last Dose/Taking lisinopriL (PRINIVIL) 40 mg tablet Take 40 mg by mouth daily. Taking dapagliflozin propanediol (Farxiga) 5 mg Tablet Take 5 mg by mouth daily. Taking Inpatient Medications and relevant orders were reviewed. Pertinent lab data, most recent imaging, ENTOMOLOGY PROFESSOR and current medications were reviewed. Problem List: Primary Discharge Diagnosis: Secondary spontaneous pneumothorax Other Active medical issues also addressed during this admission: Active Hospital Problems Diagnosis Hypertension, essential Moderate protein-calorie malnutrition Chronic kidney disease, stage IV (severe) (CMS/HCC) Acute respiratory failure with hypoxia (CMS/HCC) Secondary spontaneous pneumothorax Cigarette smoker Elevated serum creatinine Hyperkalemia Resolved Hospital Problems No resolved problems to display. Assessment and Plan Acute Problems: Acute hypoxemic respiratory failure, resolved Secondary spontaneous pneumothorax, left - Initially presented on 04/24 at [facility] ED due to chest pain and shortness of breath having large pneumothorax - CT chest showed large left pneumothorax with left sided chest tube, pneumomediastinum and subcutaneous emphysema, advanced pulmonary emphysema, mass like opacity in left lower lobe - Chest tube was placed and transferred here - persistent air leak - s/p pleurodesis 05/01, unsuccessful - s/p endobronchial valve testing 05/04, not a candidate due to collateral ventilation - s/p blood patch 05/06 - pt continues to have air leak, CT surgery discussed with [facility] cardiothoracic surgery, nothing further to offer - s/p large bore chest tube 05/14 due to worsened pneumothorax, placed in suction at -30 - both chest tubes in suction now - CT surgery recommending LTAC disposition - ceftriaxone x 5 days for possible pneumonia on left lower lobe ATN/?CKD - renal function improving - monitor creatinine Chronic active problems: HTN - c/w lisinopril Code status: Full Code Diet: DIET GENERAL Effective Now DVT prophylaxis: Heparin GLYCEMIC CONTROL GLUCOSE and POC GLUCOSE reviewed Lab Results Component Value Date/Time GLUCOSE 102 (H) 05/20/2025 12:49 AM NUTRITIONAL STATUS Nutrition Status: Malnutrition Nutrition Diagnosis: Moderate protein-calorie malnutrition Provider Assessment/Plan: Symptoms/Signs/Physical Exam: Cachexia, Muscle Wasting, Subcutaneous Fat Loss, Poor Appetite, and Weight Loss Etiology: Acute illness and Chronic illness Nutrition Treatment Plan: - Current Diet and/or Nutritional Supplementation ordered: DIET GENERAL Effective Now - Daily weights Impact of Malnutrition on patient condition and outcomes: Reduced oral intake, Increased dysphagia, Delayed recovery, Decreased ability to perform activities, Respiratory deterioration, and Poor wound healing DISPOSITION AND DISCHARGE BARRIERS Location: Final Discharge Disposition: Home or Self Care Timeframe: 05/24/2025 Criteria: Clinical improvement UNDERSTANDING OF ILLNESS Discussed with the patient about current medical problems, diagnostic modalities, treatment plan and they acknowledge understanding. Communication preference: [employer] 'Secure Chat' preferred over pages for this provider, Please leave your callback number with each new secure chat. 7AM-7PM only. Page/SecureChat oncall E-hospitalist orcross-covering floor physician/provider from 7PM-7AM. Duc Camp MD Hospitalist, [facility] Parts of this note were transcribed using an automated dictation software. Efforts have been made to assure accuracy of the roving sizer. Any obvious errors or omissions should be clarified with theauthor of the document. * Antony Galan PA-C - 05/20/2025 7:54 AM CDT Cardiothoracic Surgery Progress Note Admit Date: 04/24/2025 Hospital day: LOS: 26 days SUBJECTIVE: Patient sitting in bed eating breakfast this morning. Denies any new concerns. Air leak still present in surgical tube not present in pig tail. 05/03: Chest tube with air leak. Will discuss with Dr. Trammell. 05/04: Left pleural chest tube (pigtail) with air leak, (+) subcutaneous emphysema along left chest wall, patient reports tenderness on exam. Pigtail kinked - adjusted. Repeat CXR. 05/05: LpCT (pigtail) remains w air leak, (+) subcutaneous emphysema and muted phonation. Tendernessto left side remains. EBV unable to be placed yesterday, patient not candidate. 05/06: LpCT (pigtail) remains w air leak, (+) subcutaneous emphysema and muted phonation. Tendernessto left side remains. IR to exchange/upside LpCT today, will attempt blood patch once new CT is in place. Wean oxygen off, goal SpO2 88-94%. 05/07: LpCT (pigtail) remains w air leak, (+) subcutaneous emphysema. Blood patch performed yesterday. 05/08: LpCT (pigtail) with continuous air leak, subQ emphysema. 05/09: LpCT (pigtail) with continuous air leak, subQ emphysema. Addendum: patient have more subQ air on the left shoulder and neck area, with a bit change of voice. Still on room air sat 95%. Pigtail in the same position. Suction placed to -30mmHg. 05/10: LpCT (pigtail) with continuous air leak on -30mmHg suction, muted phonation. Recommend transfer to [place]. 05/11: LpCT (pigtail) with continuous air leak, on -30mmHg suction, muted phonation. Transfer attempted to [place]. Dr. Atkins and Dr. Weller discussed case, to additional options to offer at [place]. 05/12: LpCT (pigtail) continues to have air leak, suction weaned to -20mmHg per Dr. Atkins, repeat CXR 1145. 05/13/: cxr with increased ptx, LpCT (pigtail) continues to have air leak, suction to -30mmHg per Dr. Atkins 05/14: cxr worsened ptx, placed surgical chest tube Addendum: keep large chest tube to -30 suction, keep pigtail to water seal for now. CXR stable 05/15: + air leak on chest tube, subQ emphysema present. Clamped pig tail today, will repeat chest xray in 4 hours, unclamped due to worsening pneumothorax on CXR 05/16: + air leak on chest tube, subQ emphysema present. Continue pig tail today 05/17: +air leak on chest tube, subQ emphysema present. Continue both tubes today, consider transferto LTAC for chest tube management 05/18: + air leak, continue both tubes on -30 suction, may go to Ltac 05/19: air leak improving, subQ air improving, continue both chest tubes to -20 suction 05/20-Air leak improving. CXR stable. Continue chest tube to suction. OBJECTIVE: BP 125/74 (BP Location: Left arm, Patient Position (BP): Sitting) Pulse 83 Temp 97.8 ??F (36.6 ??C) (Temporal) Resp 13 Ht 5' 11 (1.803 m) Wt 72.2 kg (159 lb 2.8 oz) SpO2 91% BMI 22.20 kg/m?? Intake/Output Summary (Last 24 hours) at 05/20/2025 0754 Last data filed at 05/20/2025 0315 Gross per 24 hour Intake 240 ml Output 62 ml Net 178 ml Last documented weight: Weight: 72.2 kg (159 lb 2.8 oz) (05/20/25 0500) Weight: 75.6 kg (166 lb 10.7 oz) (04/24/25 1522) General appearance: alert, cooperative, in no distress Lungs: Normal effort. Heart: RR Abdomen: soft, non tender. Extremities: moves all extremities without difficulty, edema Incisions: dressings dry and intact Neurologic: grossly normal Data Reviewed: CBC: Recent Labs 05/17/25231005/18/254 05/19/25 0147 05/20/25 0049 WBC 17.2* 15.1* 13.0* 12.5* HGB 12.4* 13.3* 12.0* 11.8* HCT 37.0* 40.1* 36.3* 36.5* PLT 517* 555* 483* 502* MCV 89.4 90.5 89.6 90.6 BMP: Recent Labs 05/17/25231005/18/25 0454 05/19/25 0147 05/20/25 0049 GLUCOSE 113* 126* 106* 102* BUN 32* 31* 32* 31* CREAT 1.68* 1.73* 1.70* 1.75* NA 136 137 136 135* K 4.7 5.1 4.5 4.6 CL 103 103 103 103 CO2 22 23 22 21* ANIONGAP 11 11 11 11 CA 9.0 9.2 8.9 8.8 PO4 3.6 3.2 3.9 4.7* Hemoglobin A1C: No results found for: HGBA1C , [id number] LFTs: Recent Labs 05/17/25 2311 05/18/25 0454 05/19/25 0147 05/20/25 0049 ALBUMIN 3.3* 3.6 3.3* 3.3* Coagulation: No results for input(s): PT , INR , APTT in the last 72 hours. ASSESSMENT: Active Hospital Problems Diagnosis Hypertension, essential Moderate protein-calorie malnutrition Chronic kidney disease, stage IV (severe) (CMS/HCC) Acute respiratory failure with hypoxia (CMS/HCC) Secondary spontaneous pneumothorax Cigarette smoker Elevated serum creatinine Hyperkalemia Resolved Hospital Problems No resolved problems to display. CXR Stable PLAN: Left pneumothorax + air leak, keep both chest tubes to -20 suction -CTS will continue to follow. Antony Galan PA-C Cardiothoracic Surgery Cosigned by Puma Atkins MD at 05/20/2025 6:10 PM CDT * Duc Camp MD - 05/19/2025 12:52 PM CDT Images from the original note were not included. [employer] is our life's work [facility] Hospitalist/Hospital Medicine Progress note LOS: LOS: 25 days Room/Bed: [facility]/ Patient name: Froylan Yan Date of : 1965 HOSPITAL COURSE SUMMARY Summary: Froylan Yan is a 60-year-old male with a significant history of cigarette smoking, hypertension, and chronic kidney disease who was admitted to [facility] on 04/24/2025 for evaluation and management of a secondary spontaneous pneumothorax after presenting to an outside emergency department with sudden onset of left-sided chest pain and shortness of breath. 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 During hospitalization, he experienced acute decompensation with recurrent large left pneumothorax and partial lung collapse after the initial chest tube became dislodged, necessitating transfer to the ICU and emergent repeat chest tube placement; this was confirmed by stat chest x-ray and managed with continuous wall suction and serial imaging. Pulmonology and cardiothoracic surgery were consulted for ongoing management of the persistent air leak and subcutaneous emphysema, and daily chest x-rays were obtained to monitor lung re-expansion and tube position. Despite chest tube management, he continued to have a persistent expiratory air leak and subcutaneous emphysema, and underwent bedsidetalc pleurodesis on 05/01/2025, which did not resolve the air leak. A subsequent attempt at endobronchial valve placement on 05/04/2025 was unsuccessful due to collateral ventilation, as determined by intra-procedural balloon occlusion testing during bronchoscopy. Throughout the admission, he required supplemental oxygen, initially up to 15 L, which was gradually weaned as tolerated; he remained on low-flow nasal cannula at the time of most recent documentation, with SpO2 maintained between 88-94%. He developed moderate protein-calorie malnutrition, as assessed by the nutrition team, and was started on oral nutrition supplements and a potassium-controlled diet. 05/05: Patient continues to have persistent air leak despite chest tube being place to suction. Willdiscuss with CTS. 05/06: Patient continues to have air leak. CTS planning on blood patch to see if this will resolve the air leak, otherwise patient will need to be potentially transferred to higher level of care. 05/07-: Patient had blood patch. Repeat chest X-ray ordered to evaluate pneumothorax. 05/09: Patient continues to have persistent pneumothorax with air leak. 05/10-: No changes. Attempting to transfer patient to higher level of care. 05/12: Cardiothoracic surgery did speak with [facility] and they had nothing further to offer. Repeat x-raythis morning showing some slight improvement. Placed back on suction and then repeat chest x-ray inthe afternoon showing no significant change from morning. Repeat x-ray in the morning 05/13: Suction increased to -30mmHg. 05/14: New apical large bore chest tube placed with improvement of PTX. 05/15: Clinically stable. CT surgery is following, they clamped pigtail today. 05/16: continued pigtail drain 05/17: cxr showed increased left basilar pneumothorax, CT surgery recommending LTAC for chest tube management 05/18: both chest tube in suction now, CT surgery recommending LTAC. CM working on it. Start ceftriaxone due to consolidation in left lower lobe & leukocytosis. 05/19: chest tube down to -20 suction, pt complaining of numbness in left hand on ulnar nerve distribution, no motor weakness, ?ulnar neuropathy. Start gabapentin Consultants During this admission: IP CONSULT TO PULMONOLOGY IP CONSULT TO NEPHROLOGY IP CONSULT TO IV TEAM SUBJECTIVE: Patient was seen and examined at bedside. Pt reports numbness in left hand. Review of System: A 12-point ROS was negative except for those mentioned. OBJECTIVE: Temp (24hrs), Av.1 ??F (36.7 ??C), Min:97.5 ??F (36.4 ??C), Max:98.6 ??F (37 ??C) BP 118/76 (BP Location: Left arm, Patient Position (BP): Supine) Pulse 83 Temp 98.6 ??F (37 ??C) (Temporal) Resp 15 Ht 5' 11 (1.803 m) Wt 72.6 kg (160 lb 0.9 oz) SpO2 92% BMI 22.32 kg/m?? Intake/Output Summary (Last 24 hours) at 05/19/2025 1252 Last data filed at 05/19/2025 1142 Gross per 24 hour Intake 333.91 ml Output 2311 ml Net -1977.09 ml Last documented weight: Weight: 72.6 kg (160 lb 0.9 oz) (05/19/25 0318) General: no acute distress HEENT: PERRLA, EOMI, neck supple. Heart: regular rhythm, no murmur Lungs: normal respiratory effort, decreased breath sounds on left, [address] Abdomen: soft, nontender, no organomegaly GENITOURINARY: No suprapubic tenderness. No CVA tenderness Skin: intact MUSCULOSKELETAL: moves all extremities EXTREMITIES: no edema PSYCHIATRIC: No agitation or delirium HEMATOLOGIC/LYMPHATIC/IMMUNOLOGIC: No cervical lymphadenopathy NEUROLOGIC: Awake, alert and oriented x4, No new gross focal motor deficits noted. LABORATORY Recent Labs 05/17/25231005/18/254 05/19/25 0147 WBC 17.2* 15.1* 13.0* HGB 12.4* 13.3* 12.0* HCT 37.0* 40.1* 36.3* PLT 517* 555* 483* Recent Labs 05/17/25231005/18/254 05/19/25 0147 NA 136 137 136 K 4.7 5.1 4.5 CL 103 103 103 CO2 CA 9.0 9.2 8.9 BUN 32* 31* 32* CREAT 1.68* 1.73* 1.70* GLUCOSE 113* 126* 106* Recent Labs 05/17/25231005/18/2545305/19/25 0147 ALBUMIN 3.3* 3.6 3.3* No results for input(s): INR , PT in the last 72 hours. Invalid input(s): PTT No results for input(s): BASETROP , 2HRTROP , DELTA , 6HRTROP in the last 72 hours. MEDICATIONS ENTOMOLOGY PROFESSOR medications reviewed. Medications Prior to Admission Medication Sig Dispense Refill Last Dose/Taking lisinopriL (PRINIVIL) 40 mg tablet Take 40 mg by mouth daily. Taking dapagliflozin propanediol (Farxiga) 5 mg Tablet Take 5 mg by mouth daily. Taking Inpatient Medications and relevant orders were reviewed. Pertinent lab data, most recent imaging, ENTOMOLOGY PROFESSOR and current medications were reviewed. Problem List: Primary Discharge Diagnosis: Secondary spontaneous pneumothorax Other Active medical issues also addressed during this admission: Active Hospital Problems Diagnosis Hypertension, essential Moderate protein-calorie malnutrition Chronic kidney disease, stage IV (severe) (CMS/HCC) Acute respiratory failure with hypoxia (CMS/HCC) Secondary spontaneous pneumothorax Cigarette smoker Elevated serum creatinine Hyperkalemia Resolved Hospital Problems No resolved problems to display. Assessment and Plan Acute Problems: Acute hypoxemic respiratory failure, resolved Secondary spontaneous pneumothorax, left - Initially presented on 04/24 at [facility] ED due to chest pain and shortness of breath having large pneumothorax - CT chest showed large left pneumothorax with left sided chest tube, pneumomediastinum and subcutaneous emphysema, advanced pulmonary emphysema, mass like opacity in left lower lobe - Chest tube was placed and transferred here - persistent air leak - s/p pleurodesis 05/01, unsuccessful - s/p endobronchial valve testing 05/04, not a candidate due to collateral ventilation - s/p blood patch 05/06 - pt continues to have air leak, CT surgery discussed with [facility] cardiothoracic surgery, nothing further to offer - s/p large bore chest tube 05/14 due to worsened pneumothorax, placed in suction at -30 - both chest tubes in suction now - CT surgery recommending LTAC disposition - start ceftriaxone ATN/?CKD - renal function improving - monitor creatinine Chronic active problems: HTN - c/w lisinopril Code status: Full Code Diet: DIET GENERAL Effective Now DVT prophylaxis: Heparin GLYCEMIC CONTROL GLUCOSE and POC GLUCOSE reviewed Lab Results Component Value Date/Time GLUCOSE 106 (H) 05/19/2025 01:47 AM NUTRITIONAL STATUS Nutrition Status: Malnutrition Nutrition Diagnosis: Moderate protein-calorie malnutrition Provider Assessment/Plan: Symptoms/Signs/Physical Exam: Cachexia, Muscle Wasting, Subcutaneous Fat Loss, Poor Appetite, and Weight Loss Etiology: Acute illness and Chronic illness Nutrition Treatment Plan: - Current Diet and/or Nutritional Supplementation ordered: DIET GENERAL Effective Now - Daily weights Impact of Malnutrition on patient condition and outcomes: Reduced oral intake, Increased dysphagia, Delayed recovery, Decreased ability to perform activities, Respiratory deterioration, and Poor wound healing DISPOSITION AND DISCHARGE BARRIERS Location: Final Discharge Disposition: Home or Self Care Timeframe: 05/20/2025 Criteria: Clinical improvement UNDERSTANDING OF ILLNESS Discussed with the patient about current medical problems, diagnostic modalities, treatment plan and they acknowledge understanding. Communication preference: Epic 'Secure Chat' preferred over pages for this provider, Please leave your callback number with each new secure chat. 7AM-7PM only. Page/SecureChat oncall E-hospitalist orcross-covering floor physician/provider from 7PM-7AM. Duc Camp MD Hospitalist, [facility] Parts of this note were transcribed using an automated dictation software. Efforts have been made to assure accuracy of the roving sizer. Any obvious errors or omissions should be clarified with theauthor of the document. * Wyatt Tarango PA - 05/19/2025 7:56 AM CDT Cardiothoracic Surgery Progress Note Admit Date: 04/24/2025 Hospital day: LOS: 25 days SUBJECTIVE: Patient sitting in bed eating breakfast this morning. Denies any new concerns. Air leak still present in surgical tube not present in pig tail. 05/03: Chest tube with air leak. Will discuss with Dr. Trammell. 05/04: Left pleural chest tube (pigtail) with air leak, (+) subcutaneous emphysema along left chest wall, patient reports tenderness on exam. Pigtail kinked - adjusted. Repeat CXR. 05/05: LpCT (pigtail) remains w air leak, (+) subcutaneous emphysema and muted phonation. Tendernessto left side remains. EBV unable to be placed yesterday, patient not candidate. 05/06: LpCT (pigtail) remains w air leak, (+) subcutaneous emphysema and muted phonation. Tendernessto left side remains. IR to exchange/upside LpCT today, will attempt blood patch once new CT is in place. Wean oxygen off, goal SpO2 88-94%. 05/07: LpCT (pigtail) remains w air leak, (+) subcutaneous emphysema. Blood patch performed yesterday. 05/08: LpCT (pigtail) with continuous air leak, subQ emphysema. 05/09: LpCT (pigtail) with continuous air leak, subQ emphysema. Addendum: patient have more subQ air on the left shoulder and neck area, with a bit change of voice. Still on room air sat 95%. Pigtail in the same position. Suction placed to -30mmHg. 05/10: LpCT (pigtail) with continuous air leak on -30mmHg suction, muted phonation. Recommend transfer to [place]. 05/11: LpCT (pigtail) with continuous air leak, on -30mmHg suction, muted phonation. Transfer attempted to [place]. Dr. Atkins and Dr. Weller discussed case, to additional options to offer at [place]. 05/12: LpCT (pigtail) continues to have air leak, suction weaned to -20mmHg per Dr. Atkins, repeat CXR 1145. 05/13/: cxr with increased ptx, LpCT (pigtail) continues to have air leak, suction to -30mmHg per Dr. Atkins 05/14: cxr worsened ptx, placed surgical chest tube Addendum: keep large chest tube to -30 suction, keep pigtail to water seal for now. CXR stable 05/15: + air leak on chest tube, subQ emphysema present. Clamped pig tail today, will repeat chest xray in 4 hours, unclamped due to worsening pneumothorax on CXR 05/16: + air leak on chest tube, subQ emphysema present. Continue pig tail today 05/17: +air leak on chest tube, subQ emphysema present. Continue both tubes today, consider transferto LTAC for chest tube management 05/18: + air leak, continue both tubes on -30 suction, may go to Ltac 05/19: air leak improving, subQ air improving, continue both chest tubes to -20 suction OBJECTIVE: BP 123/72 (BP Location: Left arm, Patient Position (BP): Supine) Pulse 83 Temp 98.6 ??F (37 ??C) (Temporal) Resp 17 Ht 5' 11 (1.803 m) Wt 72.6 kg (160 lb 0.9 oz) SpO2 92% BMI 22.32 kg/m?? Intake/Output Summary (Last 24 hours) at 05/19/2025 0756 Last data filed at 05/19/2025 0700 Gross per 24 hour Intake 1653.91 ml Output 2261 ml Net -607.09 ml Last documented weight: Weight: 72.6 kg (160 lb 0.9 oz) (05/19/25 0318) Weight: 75.6 kg (166 lb 10.7 oz) (04/24/25 1522) General appearance: alert, cooperative, in no distress Lungs: normal respiratory effort, oxygen Heart: normal sinus rhythm Abdomen: soft, non-tender, bowel sounds normoactive Extremities: moves all extremities without difficulty, edema Incisions: dressings dry and intact Neurologic: grossly normal Data Reviewed: CBC: Recent Labs 05/17/25 2311 05/18/25 0454 05/19/25 0147 WBC 17.2* 15.1* 13.0* HGB 12.4* 13.3* 12.0* HCT 37.0* 40.1* 36.3* PLT 517* 555* 483* MCV 89.4 90.5 89.6 BMP: Recent Labs 05/17/25 2311 05/18/25 0454 05/19/25 0147 GLUCOSE 113* 126* 106* BUN 32* 31* 32* CREAT 1.68* 1.73* 1.70* NA 136 137 136 K 4.7 5.1 4.5 CL 103 103 103 CO2 22 ANIONGAP 11 11 11 CA 9.0 9.2 8.9 PO4 3.6 3.2 3.9 Hemoglobin A1C: No results found for: HGBA1C , [id number] LFTs: Recent Labs 05/17/25231005/18/25 0454 05/19/25 0147 ALBUMIN 3.3* 3.6 3.3* Coagulation: No results for input(s): PT , INR , APTT in the last 72 hours. ASSESSMENT: Active Hospital Problems Diagnosis Hypertension, essential Moderate protein-calorie malnutrition Chronic kidney disease, stage IV (severe) (CMS/HCC) Acute respiratory failure with hypoxia (CMS/HCC) Secondary spontaneous pneumothorax Cigarette smoker Elevated serum creatinine Hyperkalemia Resolved Hospital Problems No resolved problems to display. CXR stable PLAN: + air leak, keep chest tubes to -20 suction Seen with [facility] Cardiothoracic Surgery Cosigned by Puma Atkins MD at 05/19/2025 3:16 PM CDT * Duc Camp MD - 05/18/2025 12:19 PM CDT Images from the original note were not included. [employer] [facility] our life[employer] work [facility] Hospitalist/Hospital Medicine Progress note LOS: LOS: 24 days Room/Bed: 4267/ Patient name: Froylan Yan Date of : 1965 HOSPITAL COURSE SUMMARY Summary: Froylan Yan is a 60-year-old male with a significant history of cigarette smoking, hypertension, and chronic kidney disease who was admitted to [facility] on 04/24/2025 for evaluation and management of a secondary spontaneous pneumothorax after presenting to an outside emergency department with sudden onset of left-sided chest pain and shortness of breath. 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 During hospitalization, he experienced acute decompensation with recurrent large left pneumothorax and partial lung collapse after the initial chest tube became dislodged, necessitating transfer to the ICU and emergent repeat chest tube placement; this was confirmed by stat chest x-ray and managed with continuous wall suction and serial imaging. Pulmonology and cardiothoracic surgery were consulted for ongoing management of the persistent air leak and subcutaneous emphysema, and daily chest x-rays were obtained to monitor lung re-expansion and tube position. Despite chest tube management, he continued to have a persistent expiratory air leak and subcutaneous emphysema, and underwent bedsidetalc pleurodesis on 05/01/2025, which did not resolve the air leak. A subsequent attempt at endobronchial valve placement on 05/04/2025 was unsuccessful due to collateral ventilation, as determined by intra-procedural balloon occlusion testing during bronchoscopy. Throughout the admission, he required supplemental oxygen, initially up to 15 L, which was gradually weaned as tolerated; he remained on low-flow nasal cannula at the time of most recent documentation, with SpO2 maintained between 88-94%. He developed moderate protein-calorie malnutrition, as assessed by the nutrition team, and was started on oral nutrition supplements and a potassium-controlled diet. 05/05: Patient continues to have persistent air leak despite chest tube being place to suction. Willdiscuss with CTS. 05/06: Patient continues to have air leak. CTS planning on blood patch to see if this will resolve the air leak, otherwise patient will need to be potentially transferred to higher level of care. 05/07-: Patient had blood patch. Repeat chest X-ray ordered to evaluate pneumothorax. 05/09: Patient continues to have persistent pneumothorax with air leak. 05/10-: No changes. Attempting to transfer patient to higher level of care. 05/12: Cardiothoracic surgery did speak with [facility] and they had nothing further to offer. Repeat x-raythis morning showing some slight improvement. Placed back on suction and then repeat chest x-ray inthe afternoon showing no significant change from morning. Repeat x-ray in the morning 05/13: Suction increased to -30mmHg. 05/14: New apical large bore chest tube placed with improvement of PTX. 05/15: Clinically stable. CT surgery is following, they clamped pigtail today. 05/16: continued pigtail drain 05/17: cxr showed increased left basilar pneumothorax, CT surgery recommending LTAC for chest tube management 05/18: both chest tube in suction now, CT surgery recommending LTAC. CM working on it. Start ceftriaxone due to consolidation in left lower lobe & leukocytosis. Consultants During this admission: IP CONSULT TO PULMONOLOGY IP CONSULT TO NEPHROLOGY IP CONSULT TO IV TEAM SUBJECTIVE: Patient was seen and examined at bedside. Pt reports no new concerns. Review of System: A 12-point ROS was negative except for those mentioned. OBJECTIVE: Temp (24hrs), Av ??F (36.7 ??C), Min:97.4 ??F (36.3 ??C), Max:99.2 ??F (37.3 ??C) BP 130/79 (BP Location: Left arm, Patient Position (BP): Sitting) Pulse 83 Temp 99.2 ??F (37.3 ??C) (Temporal) Resp 20 Ht 5' 11 (1.803 m) Wt 72.2 kg (159 lb 2.8 oz) SpO2 93% BMI 22.20 kg/m?? Intake/Output Summary (Last 24 hours) at 05/18/2025 1219 Last data filed at 05/18/2025 0831 Gross per 24 hour Intake 1780 ml Output 4010 ml Net -2230 ml Last documented weight: Weight: 72.2 kg (159 lb 2.8 oz) (05/17/25 0315) General: no acute distress HEENT: PERRLA, EOMI, neck supple. Heart: regular rhythm, no murmur Lungs: normal respiratory effort, decreased breath sounds on left, [address] Abdomen: soft, nontender, no organomegaly GENITOURINARY: No suprapubic tenderness. No CVA tenderness Skin: intact MUSCULOSKELETAL: moves all extremities EXTREMITIES: no edema PSYCHIATRIC: No agitation or delirium HEMATOLOGIC/LYMPHATIC/IMMUNOLOGIC: No cervical lymphadenopathy NEUROLOGIC: Awake, alert and oriented x4, No new gross focal motor deficits noted. LABORATORY Recent Labs 05/16/25 05005/17/25231005/18/25 0454 WBC 16.5* 17.2* 15.1* HGB 12.3* 12.4* 13.3* HCT 37.1* 37.0* 40.1* PLT 542* 517* 555* Recent Labs 05/16/25 05005/17/25231005/18/25 0454 NA 139 136 137 K 4.9 4.7 5.1 CL 104 103 103 CO2 26 22 23 CA 9.0 9.0 9.2 BUN 28* 32* 31* CREAT 1.81* 1.68* 1.73* GLUCOSE 104* 113* 126* Recent Labs 05/17/25231005/18/25 0454 ALBUMIN 3.3* 3.6 No results for input(s): INR , PT in the last 72 hours. Invalid input(s): PTT No results for input(s): BASETROP , 2HRTROP , DELTA , 6HRTROP in the last 72 hours. MEDICATIONS ENTOMOLOGY PROFESSOR medications reviewed. Medications Prior to Admission Medication Sig Dispense Refill Last Dose/Taking lisinopriL (PRINIVIL) 40 mg tablet Take 40 mg by mouth daily. Taking dapagliflozin propanediol (Farxiga) 5 mg Tablet Take 5 mg by mouth daily. Taking Inpatient Medications and relevant orders were reviewed. Pertinent lab data, most recent imaging, ENTOMOLOGY PROFESSOR and current medications were reviewed. Problem List: Primary Discharge Diagnosis: Secondary spontaneous pneumothorax Other Active medical issues also addressed during this admission: Active Hospital Problems Diagnosis Hypertension, essential Moderate protein-calorie malnutrition Chronic kidney disease, stage IV (severe) (CMS/HCC) Acute respiratory failure with hypoxia (CMS/HCC) Secondary spontaneous pneumothorax Cigarette smoker Elevated serum creatinine Hyperkalemia Resolved Hospital Problems No resolved problems to display. Assessment and Plan Acute Problems: Acute hypoxemic respiratory failure, resolved Secondary spontaneous pneumothorax, left - Initially presented on 04/24 at [facility] ED due to chest pain and shortness of breath having large pneumothorax - CT chest showed large left pneumothorax with left sided chest tube, pneumomediastinum and subcutaneous emphysema, advanced pulmonary emphysema, mass like opacity in left lower lobe - Chest tube was placed and transferred here - persistent air leak - s/p pleurodesis 05/01, unsuccessful - s/p endobronchial valve testing 05/04, not a candidate due to collateral ventilation - s/p blood patch 05/06 - pt continues to have air leak, CT surgery discussed with [facility] cardiothoracic surgery, nothing further to offer - s/p large bore chest tube 05/14 due to worsened pneumothorax, placed in suction at -30 - both chest tubes in suction now - CT surgery recommending LTAC disposition - start ceftriaxone ATN/?CKD - renal function improving - monitor creatinine Chronic active problems: HTN - c/w lisinopril Code status: Full Code Diet: DIET GENERAL Effective Now DVT prophylaxis: Heparin GLYCEMIC CONTROL GLUCOSE and POC GLUCOSE reviewed Lab Results Component Value Date/Time GLUCOSE 126 (H) 05/18/2025 04:54 AM NUTRITIONAL STATUS Nutrition Status: Malnutrition Nutrition Diagnosis: Moderate protein-calorie malnutrition Provider Assessment/Plan: Symptoms/Signs/Physical Exam: Cachexia, Muscle Wasting, Subcutaneous Fat Loss, Poor Appetite, and Weight Loss Etiology: Acute illness and Chronic illness Nutrition Treatment Plan: - Current Diet and/or Nutritional Supplementation ordered: DIET GENERAL Effective Now - Daily weights Impact of Malnutrition on patient condition and outcomes: Reduced oral intake, Increased dysphagia, Delayed recovery, Decreased ability to perform activities, Respiratory deterioration, and Poor wound healing DISPOSITION AND DISCHARGE BARRIERS Location: Final Discharge Disposition: Home or Self Care Timeframe: 05/19/2025 Criteria: Clinical improvement UNDERSTANDING OF ILLNESS Discussed with the patient about current medical problems, diagnostic modalities, treatment plan and they acknowledge understanding. Communication preference: [employer] 'Secure Chat' preferred over pages for this provider, Please leave your callback number with each new secure chat. 7AM-7PM only. Page/SecureChat oncall E-hospitalist orcross-covering floor physician/provider from 7PM-7AM. Duc Camp MD Hospitalist, [facility] Parts of this note were transcribed using an automated dictation software. Efforts have been made to assure accuracy of the roving sizer. Any obvious errors or omissions should be clarified with theauthor of the document. * Wyatt Tarango PA - 05/18/2025 8:56 AM CDT Cardiothoracic Surgery Progress Note Admit Date: 04/24/2025 Hospital day: LOS: 24 days SUBJECTIVE: Patient sitting in bed eating breakfast this morning. Denies any new concerns. Air leak still present in surgical tube not present in pig tail. 05/03: Chest tube with air leak. Will discuss with Dr. Trammell. 05/04: Left pleural chest tube (pigtail) with air leak, (+) subcutaneous emphysema along left chest wall, patient reports tenderness on exam. Pigtail kinked - adjusted. Repeat CXR. 05/05: LpCT (pigtail) remains w air leak, (+) subcutaneous emphysema and muted phonation. Tendernessto left side remains. EBV unable to be placed yesterday, patient not candidate. 05/06: LpCT (pigtail) remains w air leak, (+) subcutaneous emphysema and muted phonation. Tendernessto left side remains. IR to exchange/upside LpCT today, will attempt blood patch once new CT is in place. Wean oxygen off, goal SpO2 88-94%. 05/07: LpCT (pigtail) remains w air leak, (+) subcutaneous emphysema. Blood patch performed yesterday. 05/08: LpCT (pigtail) with continuous air leak, subQ emphysema. 05/09: LpCT (pigtail) with continuous air leak, subQ emphysema. Addendum: patient have more subQ air on the left shoulder and neck area, with a bit change of voice. Still on room air sat 95%. Pigtail in the same position. Suction placed to -30mmHg. 05/10: LpCT (pigtail) with continuous air leak on -30mmHg suction, muted phonation. Recommend transfer to [place]. 05/11: LpCT (pigtail) with continuous air leak, on -30mmHg suction, muted phonation. Transfer attempted to [place]. Dr. Atkins and Dr. Weller discussed case, to additional options to offer at [place]. 05/12: LpCT (pigtail) continues to have air leak, suction weaned to -20mmHg per Dr. Atkins, repeat CXR 1145. 05/13/: cxr with increased ptx, LpCT (pigtail) continues to have air leak, suction to -30mmHg per Dr. Atkins 05/14: cxr worsened ptx, placed surgical chest tube Addendum: keep large chest tube to -30 suction, keep pigtail to water seal for now. CXR stable 05/15: + air leak on chest tube, subQ emphysema present. Clamped pig tail today, will repeat chest xray in 4 hours, unclamped due to worsening pneumothorax on CXR 05/16: + air leak on chest tube, subQ emphysema present. Continue pig tail today 05/17: +air leak on chest tube, subQ emphysema present. Continue both tubes today, consider transferto LTAC for chest tube management 05/18: + air leak, continue both tubes on -30 suction, may go to Ltac OBJECTIVE: BP 124/87 Pulse 83 Temp 97.4 ??F (36.3 ??C) (Temporal) Resp 12 Ht 5' 11 (1.803 m) Wt 72.2 kg (159 lb 2.8 oz) SpO2 93% BMI 22.20 kg/m?? Intake/Output Summary (Last 24 hours) at 05/18/2025 0856 Last data filed at 05/18/2025 0831 Gross per 24 hour Intake 1780 ml Output 4811 ml Net -3031 ml Last documented weight: Weight: 72.2 kg (159 lb 2.8 oz) (05/17/25 0315) Weight: 75.6 kg (166 lb 10.7 oz) (04/24/25 1522) General appearance: alert, cooperative, in no distress Lungs: normal respiratory effort, oxygen Heart: normal sinus rhythm Abdomen: soft, non-tender, bowel sounds normoactive Extremities: moves all extremities without difficulty, edema Incisions: dressings dry and intact Neurologic: grossly normal Data Reviewed: CBC: Recent Labs 05/16/25 0500 05/17/25231005/18/25 0454 WBC 16.5* 17.2* 15.1* HGB 12.3* 12.4* 13.3* HCT 37.1* 37.0* 40.1* PLT 542* 517* 555* MCV 89.6 89.4 90.5 BMP: Recent Labs 05/16/25 0500 05/17/25231005/18/25 0454 GLUCOSE 104* 113* 126* BUN 28* 32* 31* CREAT 1.81* 1.68* 1.73* NA 139 136 137 K 4.9 4.7 5.1 CL 104 103 103 CO2 ANIONGAP 9 11 11 CA 9.0 9.0 9.2 PO4 -- 3.6 3.2 Hemoglobin A1C: No results found for: HGBA1C , [id number] LFTs: Recent Labs 05/17/25231005/18/25 0454 ALBUMIN 3.3* 3.6 Coagulation: No results for input(s): PT , INR , APTT in the last 72 hours. ASSESSMENT: Active Hospital Problems Diagnosis Hypertension, essential Moderate protein-calorie malnutrition Chronic kidney disease, stage IV (severe) (CMS/HCC) Acute respiratory failure with hypoxia (CMS/HCC) Secondary spontaneous pneumothorax Cigarette smoker Elevated serum creatinine Hyperkalemia Resolved Hospital Problems No resolved problems to display. XR CHEST PA OR AP 1 VW Reason For Exam: Pneumothorax. Diagnosis: See Reason for Exam. COMPARISON: 05/18/2025 FINDINGS: Left chest tubes remain in place. Tiny left pneumothorax has significantly improved from the prior exam. Extensive subcutaneous emphysema over the chest is again noted. Mild left basilar atelectasis/consolidation and questionable pleural effusion.. Cardiac silhouette is stable. Right lung is grossly clear. No new abnormality. PLAN: + air leak, keep chest tubes to -30 suction May go to LTAC [facility] Cardiothoracic Surgery Cosigned by Puma Atkins MD at 05/18/2025 12:56 PM CDT * Violette Mulligan, RD - 05/17/2025 4:13 PM CDT Nutritional Status/Recommendations/Plan for Follow up: Po intake at 100% per doc flow Clarkrange requests/ preferences Nutrition Interventions: supplemental drinks ordered (05/03/25 1300) Estimated Needs: Estimated Energy Target: 1950- 2340 (05/03/25 1300) Estimated Protein Target: 78 -88 (05/03/25 1300) Estimated Fluid Target : 1950- 2340 (05/03/25 1300) Nutrition Energy Formula: Calories per kilogram (05/03/25 1300) Weight Used for Formula: [place] weight (05/03/25 1300) Current diet/nutrition support: DIET GENERAL Effective Now Food/Meal: Lunch (05/17/25 1229),Intake (%): 100% (05/17/25 1229) Weight status/changes: Height: 5' 11 (180.3 cm) (04/24/25 1522) Weight: 72.2 kg (159 lb 2.8 oz) (05/17/25 0315) Last seven weights (if available) from 04/19/25 1614 to 05/17/25 1613 (Last 7 readings): Weight Weight Method 05/17/25 0315 72.2 kg (159 lb 2.8 oz) Actual 05/16/25 0500 72.7 kg (160 lb 4.4 oz) -- 05/14/25 0500 72.8 kg (160 lb 7.9 oz) Actual 05/13/25 0308 71 kg (156 lb 8.4 oz) Actual 05/12/25 0215 71.4 kg (157 lb 6.5 oz) Actual 05/11/25 0400 71.8 kg (158 lb 4.6 oz) Actual 05/10/25 0315 72.2 kg (159 lb 2.8 oz) Actual 05/09/25 0500 71.5 kg (157 lb 10.1 oz) Actual Admission:Weight: 75.6 kg (166 lb 10.7 oz) (04/24/25 1522)Weight Method: Actual (04/24/25 1522) Body mass index is 22.2 kg/m??. 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) (05/03/25 1300) Percentage of Energy: < 75% for > 7 days (moderate-acute) (05/03/25 1300) Percentage of Weight Loss: No history of significant wt loss (05/03/25 1300) Additional assessment indices: Lopez Score: 21 (05/17/25 0700) Last Bowel Movement (mm/dd/yyyy): 05/17/25 (05/17/25 0900) Stool Consistency - Reference [place] Stool Chart: watery - (type 7) (05/17/25 0900) Bowel Sounds: All Quadrants: (normoactive) (05/16/25 1915) Allergies No Known Allergies Labs: Lab Results Component Value Date/Time NA 139 05/16/2025 05:00 AM K 4.9 05/16/2025 05:00 AM CL 104 05/16/2025 05:00 AM CO2 26 05/16/2025 05:00 AM CA 9.0 05/16/2025 05:00 AM BUN 28 (H) 05/16/2025 05:00 AM CREAT 1.81 (H) 05/16/2025 05:00 AM GLUCOSE 104 (H) 05/16/2025 05:00 AM TOTALPROTEIN 5.9 (L) 05/10/2025 09:26 AM ALBUMIN 3.5 05/10/2025 09:26 AM BILITOTAL 0.2 05/10/2025 09:26 AM ALKPHOS 72 05/10/2025 09:26 AM AST 27 05/10/2025 09:26 AM ALT 35 05/10/2025 09:26 AM ANIONGAP 9 05/16/2025 05:00 AM No results found for: HGBA1C , [id number] Lab Results Component Value Date/Time RDW 14.8 (H) 05/16/2025 05:00 AM No results found for: CRP , CRPHS Lab Results Component Value Date/Time MG 2.2 05/06/2025 07:39 AM Lab Results Component Value Date/Time CA 9.0 05/16/2025 05:00 AM Lab Results Component Value Date/Time VITAMINDTO 27 (L) 04/26/2025 09:04 AM No results found for: [id number] No results found for: FOLATE , FOLATERBC No results found for: ZINC * Duc Camp MD - 05/17/2025 1:17 PM CDT Images from the original note were not included. [employer] is our life's work [facility] Hospitalist/[facility] Medicine Progress note LOS: LOS: 23 days Room/Bed: [facility]/ Patient name: Froylan Yan Date of : 1965 HOSPITAL COURSE SUMMARY Summary: Froylan Yan is a 60-year-old male with a significant history of cigarette smoking, hypertension, and chronic kidney disease who was admitted to [facility] on 04/24/2025 for evaluation and management of a secondary spontaneous pneumothorax after presenting to an outside emergency department with sudden onset of left-sided chest pain and shortness of breath. 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 During hospitalization, he experienced acute decompensation with recurrent large left pneumothorax and partial lung collapse after the initial chest tube became dislodged, necessitating transfer to the ICU and emergent repeat chest tube placement; this was confirmed by stat chest x-ray and managed with continuous wall suction and serial imaging. Pulmonology and cardiothoracic surgery were consulted for ongoing management of the persistent air leak and subcutaneous emphysema, and daily chest x-rays were obtained to monitor lung re-expansion and tube position. Despite chest tube management, he continued to have a persistent expiratory air leak and subcutaneous emphysema, and underwent bedsidetalc pleurodesis on 05/01/2025, which did not resolve the air leak. A subsequent attempt at endobronchial valve placement on 05/04/2025 was unsuccessful due to collateral ventilation, as determined by intra-procedural balloon occlusion testing during bronchoscopy. Throughout the admission, he required supplemental oxygen, initially up to 15 L, which was gradually weaned as tolerated; he remained on low-flow nasal cannula at the time of most recent documentation, with SpO2 maintained between 88-94%. He developed moderate protein-calorie malnutrition, as assessed by the nutrition team, and was started on oral nutrition supplements and a potassium-controlled diet. 05/05: Patient continues to have persistent air leak despite chest tube being place to suction. Willdiscuss with CTS. 05/06: Patient continues to have air leak. CTS planning on blood patch to see if this will resolve the air leak, otherwise patient will need to be potentially transferred to higher level of care. 05/07-: Patient had blood patch. Repeat chest X-ray ordered to evaluate pneumothorax. 05/09: Patient continues to have persistent pneumothorax with air leak. 05/10-: No changes. Attempting to transfer patient to higher level of care. 05/12: Cardiothoracic surgery did speak with [facility] and they had nothing further to offer. Repeat x-raythis morning showing some slight improvement. Placed back on suction and then repeat chest x-ray inthe afternoon showing no significant change from morning. Repeat x-ray in the morning 05/13: Suction increased to -30mmHg. 05/14: New apical large bore chest tube placed with improvement of PTX. 05/15: Clinically stable. CT surgery is following, they clamped pigtail today. 05/16: continued pigtail drain 05/17: cxr showed increased left basilar pneumothorax, CT surgery recommending LTAC for chest tube management Consultants During this admission: IP CONSULT TO PULMONOLOGY IP CONSULT TO NEPHROLOGY IP CONSULT TO IV TEAM SUBJECTIVE: Patient was seen and examined at bedside. Pt is frustrated. Review of System: A 12-point ROS was negative except for those mentioned. OBJECTIVE: Temp (24hrs), Av.3 ??F (36.8 ??C), Min:97.8 ??F (36.6 ??C), Max:98.6 ??F (37 ??C) BP (!) 116/92 Pulse 83 Temp 97.8 ??F (36.6 ??C) (Temporal) Resp 15 Ht 5' 11 (1.803 m) Wt72.2 kg (159 lb 2.8 oz) SpO2 92% BMI 22.20 kg/m?? Intake/Output Summary (Last 24 hours) at 05/17/2025 1317 Last data filed at 05/17/2025 1229 Gross per 24 hour Intake 1280 ml Output 6012 ml Net -4732 ml Last documented weight: Weight: 72.2 kg (159 lb 2.8 oz) (05/17/25 0315) General: no acute distress HEENT: PERRLA, EOMI, neck supple. Heart: regular rhythm, no murmur Lungs: normal respiratory effort, decreased breath sounds on left, [address] Abdomen: soft, nontender, no organomegaly GENITOURINARY: No suprapubic tenderness. No CVA tenderness Skin: intact MUSCULOSKELETAL: moves all extremities EXTREMITIES: no edema PSYCHIATRIC: No agitation or delirium HEMATOLOGIC/LYMPHATIC/IMMUNOLOGIC: No cervical lymphadenopathy NEUROLOGIC: Awake, alert and oriented x4, No new gross focal motor deficits noted. LABORATORY Recent Labs 05/15/25 0449 05/16/25 0500 WBC 14.3* 16.5* HGB 12.6* 12.3* HCT 38.3* 37.1* PLT 564* 542* Recent Labs 05/16/25 0500 NA 139 K 4.9 CL 104 CO2 26 CA 9.0 BUN 28* CREAT 1.81* GLUCOSE 104* No results for input(s): TOTALPROTEIN , ALBUMIN , BILITOTAL , ALKPHOS , AST , ALT in the last 72 hours. No results for input(s): INR , PT in the last 72 hours. Invalid input(s): PTT No results for input(s): BASETROP , 2HRTROP , DELTA , 6HRTROP in the last 72 hours. MEDICATIONS ENTOMOLOGY PROFESSOR medications reviewed. Medications Prior to Admission Medication Sig Dispense Refill Last Dose/Taking lisinopriL (PRINIVIL) 40 mg tablet Take 40 mg by mouth daily. Taking dapagliflozin propanediol (Farxiga) 5 mg Tablet Take 5 mg by mouth daily. Taking Inpatient Medications and relevant orders were reviewed. Pertinent lab data, most recent imaging, ENTOMOLOGY PROFESSOR and current medications were reviewed. Problem List: Primary Discharge Diagnosis: Secondary spontaneous pneumothorax Other Active medical issues also addressed during this admission: Active Hospital Problems Diagnosis Hypertension, essential Moderate protein-calorie malnutrition Chronic kidney disease, stage IV (severe) (CMS/HCC) Acute respiratory failure with hypoxia (CMS/HCC) Secondary spontaneous pneumothorax Cigarette smoker Elevated serum creatinine Hyperkalemia Resolved Hospital Problems No resolved problems to display. Assessment and Plan Acute Problems: Acute hypoxemic respiratory failure, resolved Secondary spontaneous pneumothorax, left - Initially presented on 04/24 at [facility] ED due to chest pain and shortness of breath having large pneumothorax - CT chest showed large left pneumothorax with left sided chest tube, pneumomediastinum and subcutaneous emphysema, advanced pulmonary emphysema, mass like opacity in left lower lobe - Chest tube was placed and transferred here - persistent air leak - s/p pleurodesis 05/01, unsuccessful - s/p endobronchial valve testing 05/04, not a candidate due to collateral ventilation - s/p blood patch 05/06 - pt continues to have air leak, CT surgery discussed with [facility] cardiothoracic surgery, nothing further to offer - s/p large bore chest tube 05/14 due to worsened pneumothorax, placed in suction at -30 - CT surgery following ATN/?CKD - renal function improving - monitor creatinine Chronic active problems: HTN - c/w lisinopril Code status: Full Code Diet: DIET GENERAL Effective Now DVT prophylaxis: Heparin GLYCEMIC CONTROL GLUCOSE and POC GLUCOSE reviewed No results found for: GLUCOSE , GLUCPOC NUTRITIONAL STATUS Nutrition Status: Malnutrition Nutrition Diagnosis: Moderate protein-calorie malnutrition Provider Assessment/Plan: Symptoms/Signs/Physical Exam: Cachexia, Muscle Wasting, Subcutaneous Fat Loss, Poor Appetite, and Weight Loss Etiology: Acute illness and Chronic illness Nutrition Treatment Plan: - Current Diet and/or Nutritional Supplementation ordered: DIET GENERAL Effective Now - Daily weights Impact of Malnutrition on patient condition and outcomes: Reduced oral intake, Increased dysphagia, Delayed recovery, Decreased ability to perform activities, Respiratory deterioration, and Poor wound healing DISPOSITION AND DISCHARGE BARRIERS Location: Final Discharge Disposition: Home or Self Care Timeframe: 05/19/2025 Criteria: Clinical improvement UNDERSTANDING OF ILLNESS Discussed with the patient about current medical problems, diagnostic modalities, treatment plan and they acknowledge understanding. Communication preference: Epic 'Secure Chat' preferred over pages for this provider, Please leave your callback number with each new secure chat. 7AM-7PM only. Page/SecureChat oncall E-hospitalist orcross-covering floor physician/provider from 7PM-7AM. Duc Camp MD Hospitalist, [facility] Parts of this note were transcribed using an automated dictation software. Efforts have been made to assure accuracy of the roving sizer. Any obvious errors or omissions should be clarified with theauthor of the document. * Ammy Murcia, RENE - 05/17/2025 9:22 AM CDT Images from the original note were not included. Cardiothoracic Surgery Progress Note Admit Date: 04/24/2025 Hospital day: LOS: 23 days SUBJECTIVE: Patient sitting in bed eating breakfast this morning. Denies any new concerns. Air leak still present in surgical tube not present in pig tail. 05/03: Chest tube with air leak. Will discuss with Dr. Trammell. 05/04: Left pleural chest tube (pigtail) with air leak, (+) subcutaneous emphysema along left chest wall, patient reports tenderness on exam. Pigtail kinked - adjusted. Repeat CXR. 05/05: LpCT (pigtail) remains w air leak, (+) subcutaneous emphysema and muted phonation. Tendernessto left side remains. EBV unable to be placed yesterday, patient not candidate. 05/06: LpCT (pigtail) remains w air leak, (+) subcutaneous emphysema and muted phonation. Tendernessto left side remains. IR to exchange/upside LpCT today, will attempt blood patch once new CT is in place. Wean oxygen off, goal SpO2 88-94%. 05/07: LpCT (pigtail) remains w air leak, (+) subcutaneous emphysema. Blood patch performed yesterday. 05/08: LpCT (pigtail) with continuous air leak, subQ emphysema. 05/09: LpCT (pigtail) with continuous air leak, subQ emphysema. Addendum: patient have more subQ air on the left shoulder and neck area, with a bit change of voice. Still on room air sat 95%. Pigtail in the same position. Suction placed to -30mmHg. 05/10: LpCT (pigtail) with continuous air leak on -30mmHg suction, muted phonation. Recommend transfer to [place]. 05/11: LpCT (pigtail) with continuous air leak, on -30mmHg suction, muted phonation. Transfer attempted to [place]. Dr. Atkins and Dr. Weller discussed case, to additional options to offer at [place]. 05/12: LpCT (pigtail) continues to have air leak, suction weaned to -20mmHg per Dr. Atkins, repeat CXR 1145. 05/13/: cxr with increased ptx, LpCT (pigtail) continues to have air leak, suction to -30mmHg per Dr. Atkins 05/14: cxr worsened ptx, placed surgical chest tube Addendum: keep large chest tube to -30 suction, keep pigtail to water seal for now. CXR stable 05/15: + air leak on chest tube, subQ emphysema present. Clamped pig tail today, will repeat chest xray in 4 hours, unclamped due to worsening pneumothorax on CXR 05/16: + air leak on chest tube, subQ emphysema present. Continue pig tail today 05/17: +air leak on chest tube, subQ emphysema present. Continue both tubes today, consider transferto LTAC for chest tube management OBJECTIVE: BP 133/84 Pulse 83 Temp 98.6 ??F (37 ??C) (Temporal) Resp 19 Ht 5' 11 (1.803 m) Wt 72.2 kg (159 lb 2.8 oz) SpO2 92% BMI 22.20 kg/m?? Intake/Output Summary (Last 24 hours) at 05/17/2025 0922 Last data filed at 05/17/2025 0800 Gross per 24 hour Intake 1760 ml Output 5611 ml Net -3851 ml Last documented weight: Weight: 72.2 kg (159 lb 2.8 oz) (05/17/25 0315) Weight: 75.6 kg (166 lb 10.7 oz) (04/24/25 1522) General appearance: alert, cooperative, in no distress Lungs: normal respiratory effort, oxygen Heart: normal sinus rhythm Abdomen: soft, non-tender, bowel sounds normoactive Extremities: moves all extremities without difficulty, edema Incisions: dressings dry and intact Neurologic: grossly normal Data Reviewed: CBC: Recent Labs 05/15/25 0449 05/16/25 0500 WBC 14.3* 16.5* HGB 12.6* 12.3* HCT 38.3* 37.1* PLT 564* 542* MCV 90.8 89.6 BMP: Recent Labs 05/16/25 0500 GLUCOSE 104* BUN 28* CREAT 1.81* NA 139 K 4.9 CL 104 CO2 26 ANIONGAP 9 CA 9.0 Hemoglobin A1C: No results found for: HGBA1C , [id number] LFTs:No results for input(s): ALKPHOS , ALT , AST , BILITOTAL , ALBUMIN , AMYLASE , LIPASE in the last 72 hours. Coagulation: No results for input(s): PT , INR , APTT in the last 72 hours. ASSESSMENT: Active Hospital Problems Diagnosis Hypertension, essential Moderate protein-calorie malnutrition Chronic kidney disease, stage IV (severe) (CMS/HCC) Acute respiratory failure with hypoxia (CMS/HCC) Secondary spontaneous pneumothorax Cigarette smoker Elevated serum creatinine Hyperkalemia Resolved Hospital Problems No resolved problems to display. Findings: Cardiac silhouette is within normal limits. Unchanged left pigtail catheter and left apical thoracostomy tube. Slight increased size of left basilar pneumothorax. Persistent patchy left basilar opacities. Cardiac silhouette is within normal limits. No pleural effusion. Osseous structures are unchanged. Unchanged soft tissue gas overlying the left chest and supraclavicular fossae. IMPRESSION: Unchanged left thoracostomy tubes with increased left basilar pneumothorax. PLAN: + air leak, keep chest tube to -30 suction Increased basilar pneumothorax Continue pigtail today RENE Pearce Cardiothoracic Surgery Cosigned by Puma Atkins MD at 05/17/2025 6:18 PM CDT * Duc Camp MD - 05/16/2025 2:29 PM CDT [facility] Hospitalist Daily Progress Note PATIENT: Froylan Yan AGE: 60 y.o. CSN: [id number] Date of : 1965 Admit Date: 04/24/2025 Hospital Day: LOS: 22 days Summary: Froylan Yan is a 60-year-old male with a significant history of cigarette smoking, hypertension, and chronic kidney disease who was admitted to [facility] on 04/24/2025 for evaluation and management of a secondary spontaneous pneumothorax after presenting to an outside emergency department with sudden onset of left-sided chest pain and shortness of breath. 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 During hospitalization, he experienced acute decompensation with recurrent large left pneumothorax and partial lung collapse after the initial chest tube became dislodged, necessitating transfer to the ICU and emergent repeat chest tube placement; this was confirmed by stat chest x-ray and managed with continuous wall suction and serial imaging. Pulmonology and cardiothoracic surgery were consulted for ongoing management of the persistent air leak and subcutaneous emphysema, and daily chest x-rays were obtained to monitor lung re-expansion and tube position. Despite chest tube management, he continued to have a persistent expiratory air leak and subcutaneous emphysema, and underwent bedsidetalc pleurodesis on 05/01/2025, which did not resolve the air leak. A subsequent attempt at endobronchial valve placement on 05/04/2025 was unsuccessful due to collateral ventilation, as determined by intra-procedural balloon occlusion testing during bronchoscopy. Throughout the admission, he required supplemental oxygen, initially up to 15 L, which was gradually weaned as tolerated; he remained on low-flow nasal cannula at the time of most recent documentation, with SpO2 maintained between 88-94%. He developed moderate protein-calorie malnutrition, as assessed by the nutrition team, and was started on oral nutrition supplements and a potassium-controlled diet. 05/05: Patient continues to have persistent air leak despite chest tube being place to suction. Willdiscuss with CTS. 05/06: Patient continues to have air leak. CTS planning on blood patch to see if this will resolve the air leak, otherwise patient will need to be potentially transferred to higher level of care. 05/07-: Patient had blood patch. Repeat chest X-ray ordered to evaluate pneumothorax. 05/09: Patient continues to have persistent pneumothorax with air leak. 05/10-: No changes. Attempting to transfer patient to higher level of care. 05/12: Cardiothoracic surgery did speak with [facility] and they had nothing further to offer. Repeat x-raythis morning showing some slight improvement. Placed back on suction and then repeat chest x-ray inthe afternoon showing no significant change from morning. Repeat x-ray in the morning 05/13: Suction increased to -30mmHg. 05/14: New apical large bore chest tube placed with improvement of PTX. 05/15: Clinically stable. CT surgery is following, they clamped pigtail today. 05/16: continued pigtail drain SUBJECTIVE: Patient was seen and examined at bedside this morning. He mentioned that he was hurting when he coughs because of the tubes, but otherwise was doing okay. Vitals: Temp (24hrs), Av.2 ??F (36.8 ??C), Min:98 ??F (36.7 ??C), Max:98.5 ??F (36.9 ??C) OBJECTIVE: General Appearance: Awake and alert, appears comfortable Head: atraumatic, Normocephalic, without obvious abnormality, Eyes: conjunctivae/corneas clear. PERRL, EOM's intact., Heart: regular rate and rhythm, S1, S2 normal Lungs: clear to auscultation bilaterally, normal respiratory effort. Abdomen: Soft, non-tender. Bowel sounds normal. Extremities: extremities normal, atraumatic Skin: Chest wall crepitus MEDICATIONS: Medications reviewed. LAB REVIEW: CBC: Recent Labs 05/15/25 0449 05/16/25 0500 WBC 14.3* 16.5* HGB 12.6* 12.3* HCT 38.3* 37.1* PLT 564* 542* MCV 90.8 89.6 BMP: Recent Labs 05/16/25 0500 NA 139 K 4.9 CL 104 CO2 26 ANIONGAP 9 CA 9.0 GLUCOSE 104* BUN 28* CREAT 1.81* GFR 43* ASSESSMENT: Principal Problem: Secondary spontaneous pneumothorax Active Problems: Cigarette smoker Elevated serum creatinine Hyperkalemia Acute respiratory failure with hypoxia (CMS/HCC) Chronic kidney disease, stage IV (severe) (CMS/[facility]) Moderate protein-calorie malnutrition Hypertension, essential PLAN: Secondary spontaneous pneumothorax Initially presented on 04/24 at [facility] ED due to chest pain and shortness of breath havinglarge pneumothorax Chest tube was placed and transferred here S/p talc pleurodesis, unsuccessful Attempted endobronchial valve placement. However not a candidate due to persistent air leak despiteocclusion testing S/p blood patch on 05/06 Continues to have continuous airleak, cardiothoracic surgery discussed with [facility] cardiothoracic surgery and they have nothing further to offer Suction at -30 mmHg New large bore chest tube placed on 05/14. Improvement of PTX Acute hypoxic respiratory failure, resolved Secondary to the above Has been weaned off oxygen Essential hypertension. Continue home lisinopril, as needed hydralazine labetalol Protein calorie malnutrition, moderate Fat loss and muscle wasting noted Dietitian following, recs appreciated Malnutrition pathway continued Continue dietary supplements Replace electrolytes as needed Disposition: home vs ltach Timeframe: 2-3 days. Duc Camp MD [facility] 05/16/2025 * Ammy Murcia ARNP - 05/16/2025 7:15 AM CDT Images from the original note were not included. Cardiothoracic Surgery Progress Note Admit Date: 04/24/2025 Hospital day: LOS: 22 days SUBJECTIVE: Patient sitting in bed this morning. Denies any new concerns. Air leak still present in surgical tube and pig tail. 05/03: Chest tube with air leak. Will discuss with Dr. Trammell. 05/04: Left pleural chest tube (pigtail) with air leak, (+) subcutaneous emphysema along left chest wall, patient reports tenderness on exam. Pigtail kinked - adjusted. Repeat CXR. 05/05: LpCT (pigtail) remains w air leak, (+) subcutaneous emphysema and muted phonation. Tendernessto left side remains. EBV unable to be placed yesterday, patient not candidate. 05/06: LpCT (pigtail) remains w air leak, (+) subcutaneous emphysema and muted phonation. Tendernessto left side remains. IR to exchange/upside LpCT today, will attempt blood patch once new CT is in place. Wean oxygen off, goal SpO2 88-94%. 05/07: LpCT (pigtail) remains w air leak, (+) subcutaneous emphysema. Blood patch performed yesterday. 05/08: LpCT (pigtail) with continuous air leak, subQ emphysema. 05/09: LpCT (pigtail) with continuous air leak, subQ emphysema. Addendum: patient have more subQ air on the left shoulder and neck area, with a bit change of voice. Still on room air sat 95%. Pigtail in the same position. Suction placed to -30mmHg. 05/10: LpCT (pigtail) with continuous air leak on -30mmHg suction, muted phonation. Recommend transfer to [place]. 05/11: LpCT (pigtail) with continuous air leak, on -30mmHg suction, muted phonation. Transfer attempted to [place]. Dr. Atkins and Dr. Weller discussed case, to additional options to offer at [place]. 05/12: LpCT (pigtail) continues to have air leak, suction weaned to -20mmHg per Dr. Atkins, repeat CXR 1145. 05/13/: cxr with increased ptx, LpCT (pigtail) continues to have air leak, suction to -30mmHg per Dr. Atkins 05/14: cxr worsened ptx, placed surgical chest tube Addendum: keep large chest tube to -30 suction, keep pigtail to water seal for now. CXR stable 05/15: + air leak on chest tube, subQ emphysema present. Clamped pig tail today, will repeat chest xray in 4 hours, unclamped due to worsening pneumothorax on CXR 05/16: + air leak on chest tube, subQ emphysema present. Continue pig tail today OBJECTIVE: BP (!) 144/85 (BP Location: Left arm, Patient Position (BP): Sitting) Pulse 78 Temp 98.5 ??F (36.9 ??C) (Temporal) Resp 18 Ht 5' 11 (1.803 m) Wt 72.7 kg (160 lb 4.4 oz) SpO2 95% BMI 22.35 kg/m?? Intake/Output Summary (Last 24 hours) at 05/16/2025 0715 Last data filed at 05/16/2025 0315 Gross per 24 hour Intake 950 ml Output 886 ml Net 64 ml Last documented weight: Weight: 72.7 kg (160 lb 4.4 oz) (05/16/25 0500) Weight: 75.6 kg (166 lb 10.7 oz) (04/24/25 1522) General appearance: alert, cooperative, in no distress Lungs: normal respiratory effort, oxygen Heart: normal sinus rhythm Abdomen: soft, non-tender, bowel sounds normoactive Extremities: moves all extremities without difficulty, edema Incisions: dressings dry and intact Neurologic: grossly normal Data Reviewed: CBC: Recent Labs 05/15/25 0449 05/16/25 0500 WBC 14.3* 16.5* HGB 12.6* 12.3* HCT 38.3* 37.1* PLT 564* 542* MCV 90.8 89.6 BMP: Recent Labs 05/16/25 0500 GLUCOSE 104* BUN 28* CREAT 1.81* NA 139 K 4.9 CL 104 CO2 26 ANIONGAP 9 CA 9.0 Hemoglobin A1C: No results found for: HGBA1C , [id number] LFTs:No results for input(s): ALKPHOS , ALT , AST , BILITOTAL , ALBUMIN , AMYLASE , LIPASE in the last 72 hours. Coagulation: No results for input(s): PT , INR , APTT in the last 72 hours. ASSESSMENT: Active Hospital Problems Diagnosis Hypertension, essential Moderate protein-calorie malnutrition Chronic kidney disease, stage IV (severe) (CMS/HCC) Acute respiratory failure with hypoxia (CMS/HCC) Secondary spontaneous pneumothorax Cigarette smoker Elevated serum creatinine Hyperkalemia Resolved Hospital Problems No resolved problems to display. CXR Findings: The left thoracostomy tube and pigtail drain are unchanged in configuration. There is a small lateral and basilar pneumothorax, similar to the margination. No visible apical pneumothorax is identified. Subcutaneous emphysema is relatively stable. Findings consistent with COPD/emphysema are again noted. The cardiomediastinal silhouette is stable in appearance. PLAN: + air leak, keep chest tube to -30 suction Continue pigtail today RENE Pearce Cardiothoracic Surgery Cosigned by Lindsay Anderson MD at 05/16/2025 8:12 AM CDT * Harmeet Kim MD - 05/15/2025 7:32 PM CDT [facility] Hospitalist Daily Progress Note PATIENT: Froylan Yan AGE: 60 y.o. CSN: [id number] Date of : 1965 Admit Date: 04/24/2025 Hospital Day: LOS: 21 days Summary: Froylan Yan is a 60-year-old male with a significant history of cigarette smoking, hypertension, and chronic kidney disease who was admitted to [facility] on 04/24/2025 for evaluation and management of a secondary spontaneous pneumothorax after presenting to an outside emergency department with sudden onset of left-sided chest pain and shortness of breath. 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 During hospitalization, he experienced acute decompensation with recurrent large left pneumothorax and partial lung collapse after the initial chest tube became dislodged, necessitating transfer to the ICU and emergent repeat chest tube placement; this was confirmed by stat chest x-ray and managed with continuous wall suction and serial imaging. Pulmonology and cardiothoracic surgery were consulted for ongoing management of the persistent air leak and subcutaneous emphysema, and daily chest x-rays were obtained to monitor lung re-expansion and tube position. Despite chest tube management, he continued to have a persistent expiratory air leak and subcutaneous emphysema, and underwent bedsidetalc pleurodesis on 05/01/2025, which did not resolve the air leak. A subsequent attempt at endobronchial valve placement on 05/04/2025 was unsuccessful due to collateral ventilation, as determined by intra-procedural balloon occlusion testing during bronchoscopy. Throughout the admission, he required supplemental oxygen, initially up to 15 L, which was gradually weaned as tolerated; he remained on low-flow nasal cannula at the time of most recent documentation, with SpO2 maintained between 88-94%. He developed moderate protein-calorie malnutrition, as assessed by the nutrition team, and was started on oral nutrition supplements and a potassium-controlled diet. 05/05: Patient continues to have persistent air leak despite chest tube being place to suction. Willdiscuss with CTS. 05/06: Patient continues to have air leak. CTS planning on blood patch to see if this will resolve the air leak, otherwise patient will need to be potentially transferred to higher level of care. 05/07-: Patient had blood patch. Repeat chest X-ray ordered to evaluate pneumothorax. 05/09: Patient continues to have persistent pneumothorax with air leak. 05/10-: No changes. Attempting to transfer patient to higher level of care. 05/12: Cardiothoracic surgery did speak with [facility] and they had nothing further to offer. Repeat x-raythis morning showing some slight improvement. Placed back on suction and then repeat chest x-ray inthe afternoon showing no significant change from morning. Repeat x-ray in the morning 05/13: Suction increased to -30mmHg. 05/14: New apical large bore chest tube placed with improvement of PTX. 05/15: Clinically stable. CT surgery is following, they clamped pigtail today. SUBJECTIVE: Patient was seen and examined at bedside this morning. He mentioned that he was hurting when he coughs because of the tubes, but otherwise was doing okay. Vitals: Temp (24hrs), Av.7 ??F (36.5 ??C), Min:97.1 ??F (36.2 ??C), Max:98.4 ??F (36.9 ??C) OBJECTIVE: General Appearance: Awake and alert, appears comfortable Head: atraumatic, Normocephalic, without obvious abnormality, Eyes: conjunctivae/corneas clear. PERRL, EOM's intact., Heart: regular rate and rhythm, S1, S2 normal Lungs: clear to auscultation bilaterally, normal respiratory effort. Abdomen: Soft, non-tender. Bowel sounds normal. Extremities: extremities normal, atraumatic Skin: Chest wall crepitus MEDICATIONS: Medications reviewed. LAB REVIEW: CBC: Recent Labs 05/13/25 0110 05/15/25 0449 WBC 15.5* 14.3* HGB 12.1* 12.6* HCT 36.3* 38.3* PLT 580* 564* MCV 90.5 90.8 BMP: Recent Labs 05/13/25 0110 NA 137 K 4.4 CL 103 CO2 22 ANIONGAP 12 CA 8.7 GLUCOSE 105* BUN 31* CREAT 1.67* GFR 47* ASSESSMENT: Principal Problem: Secondary spontaneous pneumothorax Active Problems: Cigarette smoker Elevated serum creatinine Hyperkalemia Acute respiratory failure with hypoxia (CMS/HCC) Chronic kidney disease, stage IV (severe) (CMS/HCC) Moderate protein-calorie malnutrition Hypertension, essential PLAN: Secondary spontaneous pneumothorax Initially presented on 04/24 at [facility] ED due to chest pain and shortness of breath havinglarge pneumothorax Chest tube was placed and transferred here S/p talc pleurodesis, unsuccessful Attempted endobronchial valve placement. However not a candidate due to persistent air leak despiteocclusion testing S/p blood patch on 05/06 Continues to have continuous airleak, cardiothoracic surgery discussed with [facility] cardiothoracic surgery and they have nothing further to offer Suction at -30 mmHg New large bore chest tube placed on 05/14. Improvement of PTX Acute hypoxic respiratory failure, resolved Secondary to the above Has been weaned off oxygen Essential hypertension. Continue home lisinopril, as needed hydralazine labetalol Protein calorie malnutrition, moderate Fat loss and muscle wasting noted Dietitian following, recs appreciated Malnutrition pathway continued Continue dietary supplements Replace electrolytes as needed Disposition: home vs ltach Timeframe: 2-3 days. Harmeet Kim MD Hospital Medicine 05/15/2025 * Ammy Murcia ARNP - 05/15/2025 10:38 AM CDT Images from the original note were not included. Cardiothoracic Surgery Progress Note Admit Date: 04/24/2025 Hospital day: LOS: 21 days SUBJECTIVE: Sitting in bed this morning. No concerns overnight. Air leak still present in surgical tube. 05/03: Chest tube with air leak. Will discuss with Dr. Trammell. 05/04: Left pleural chest tube (pigtail) with air leak, (+) subcutaneous emphysema along left chest wall, patient reports tenderness on exam. Pigtail kinked - adjusted. Repeat CXR. 05/05: LpCT (pigtail) remains w air leak, (+) subcutaneous emphysema and muted phonation. Tendernessto left side remains. EBV unable to be placed yesterday, patient not candidate. 05/06: LpCT (pigtail) remains w air leak, (+) subcutaneous emphysema and muted phonation. Tendernessto left side remains. IR to exchange/upside LpCT today, will attempt blood patch once new CT is in place. Wean oxygen off, goal SpO2 88-94%. 05/07: LpCT (pigtail) remains w air leak, (+) subcutaneous emphysema. Blood patch performed yesterday. 05/08: LpCT (pigtail) with continuous air leak, subQ emphysema. 05/09: LpCT (pigtail) with continuous air leak, subQ emphysema. Addendum: patient have more subQ air on the left shoulder and neck area, with a bit change of voice. Still on room air sat 95%. Pigtail in the same position. Suction placed to -30mmHg. 05/10: LpCT (pigtail) with continuous air leak on -30mmHg suction, muted phonation. Recommend transfer to [place]. 05/11: LpCT (pigtail) with continuous air leak, on -30mmHg suction, muted phonation. Transfer attempted to [place]. Dr. Atkins and Dr. Weller discussed case, to additional options to offer at [place]. 05/12: LpCT (pigtail) continues to have air leak, suction weaned to -20mmHg per Dr. Atkins, repeat CXR 1145. 05/13/: cxr with increased ptx, LpCT (pigtail) continues to have air leak, suction to -30mmHg per Dr. Atkins 05/14: cxr worsened ptx, placed surgical chest tube Addendum: keep large chest tube to -30 suction, keep pigtail to water seal for now. CXR stable 05/15: + air leak on chest tube, subQ emphysema present. Clamped pig tail today, will repeat chest xray in 4 hours OBJECTIVE: BP (!) 147/89 Pulse 88 Temp 97.1 ??F (36.2 ??C) (Temporal) Resp 17 Ht 5' 11 (1.803 m) Wt72.8 kg (160 lb 7.9 oz) SpO2 94% BMI 22.38 kg/m?? Intake/Output Summary (Last 24 hours) at 05/15/2025 1039 Last data filed at 05/15/2025 0815 Gross per 24 hour Intake 425 ml Output 2464 ml Net -2039 ml Last documented weight: Weight: 72.8 kg (160 lb 7.9 oz) (05/14/25 0500) Weight: 75.6 kg (166 lb 10.7 oz) (04/24/25 1522) General appearance: alert, cooperative, in no distress Lungs: normal respiratory effort, oxygen Heart: normal sinus rhythm Abdomen: soft, non-tender, bowel sounds normoactive Extremities: moves all extremities without difficulty, edema Incisions: dressings dry and intact Neurologic: grossly normal Data Reviewed: CBC: Recent Labs 05/13/25 0110 05/15/25 0449 WBC 15.5* 14.3* HGB 12.1* 12.6* HCT 36.3* 38.3* PLT 580* 564* MCV 90.5 90.8 BMP: Recent Labs 05/13/25 0110 GLUCOSE 105* BUN 31* CREAT 1.67* NA 137 K 4.4 CL 103 CO2 22 ANIONGAP 12 CA 8.7 Hemoglobin A1C: No results found for: HGBA1C , [id number] LFTs:No results for input(s): ALKPHOS , ALT , AST , BILITOTAL , ALBUMIN , AMYLASE , LIPASE in the last 72 hours. Coagulation: No results for input(s): PT , INR , APTT in the last 72 hours. ASSESSMENT: Active Hospital Problems Diagnosis Hypertension, essential Moderate protein-calorie malnutrition Chronic kidney disease, stage IV (severe) (CMS/HCC) Acute respiratory failure with hypoxia (CMS/HCC) Secondary spontaneous pneumothorax Cigarette smoker Elevated serum creatinine Hyperkalemia Resolved Hospital Problems No resolved problems to display. Findings: The left thoracostomy tube and pleural pigtail drain are unchanged in configuration since yesterday's examination. There is a small lateral pneumothorax at the insertion site of the drains, unchanged since the prior examination. No visible apical pneumothorax identified. Subcutaneous emphysema along the left chest wall and neck and extending to the base of the right neck is again identified. Emphysematous changes are again identified bilaterally with some atelectasis in the lingula and left lung base. A tiny basilar pneumothorax is noted as well. The cardiac mediastinal silhouette is stable in appearance. IMPRESSION: No significant interval change. PLAN: Clamp pigtail and repeat chest x ray in 4 hours If stable, may remove pigtail today. + air leak, keep surgical chest tube in place to -30 suction Ammy Murcia [employer] URN ATTENDANT Cardiothoracic Surgery Cosigned by Puma Atkins MD at 05/15/2025 12:20 PM CDT * Piyush Niño MD - 05/14/2025 3:28 PM CDT [facility] Hospitalist Daily Progress Note PATIENT: Froylan Yan AGE: 60 y.o. CSN: [id number] Date of : 1965 Admit Date: 04/24/2025 Hospital Day: LOS: 20 days Summary: Froylan Yan is a 60-year-old male with a significant history of cigarette smoking, hypertension, and chronic kidney disease who was admitted to [facility] on 04/24/2025 for evaluation and management of a secondary spontaneous pneumothorax after presenting to an outside emergency department with sudden onset of left-sided chest pain and shortness of breath. 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 During hospitalization, he experienced acute decompensation with recurrent large left pneumothorax and partial lung collapse after the initial chest tube became dislodged, necessitating transfer to the ICU and emergent repeat chest tube placement; this was confirmed by stat chest x-ray and managed with continuous wall suction and serial imaging. Pulmonology and cardiothoracic surgery were consulted for ongoing management of the persistent air leak and subcutaneous emphysema, and daily chest x-rays were obtained to monitor lung re-expansion and tube position. Despite chest tube management, he continued to have a persistent expiratory air leak and subcutaneous emphysema, and underwent bedsidetalc pleurodesis on 05/01/2025, which did not resolve the air leak. A subsequent attempt at endobronchial valve placement on 05/04/2025 was unsuccessful due to collateral ventilation, as determined by intra-procedural balloon occlusion testing during bronchoscopy. Throughout the admission, he required supplemental oxygen, initially up to 15 L, which was gradually weaned as tolerated; he remained on low-flow nasal cannula at the time of most recent documentation, with SpO2 maintained between 88-94%. He developed moderate protein-calorie malnutrition, as assessed by the nutrition team, and was started on oral nutrition supplements and a potassium-controlled diet. 05/05: Patient continues to have persistent air leak despite chest tube being place to suction. Willdiscuss with CTS. 05/06: Patient continues to have air leak. CTS planning on blood patch to see if this will resolve the air leak, otherwise patient will need to be potentially transferred to higher level of care. 05/07-: Patient had blood patch. Repeat chest X-ray ordered to evaluate pneumothorax. 05/09: Patient continues to have persistent pneumothorax with air leak. 05/10-: No changes. Attempting to transfer patient to higher level of care. 05/12: Cardiothoracic surgery did speak with [facility] and they had nothing further to offer. Repeat x-raythis morning showing some slight improvement. Placed back on suction and then repeat chest x-ray inthe afternoon showing no significant change from morning. Repeat x-ray in the morning 05/13: Suction increased to -30mmHg. 05/14: New apical large bore chest tube placed with improvement of PTX. SUBJECTIVE: This morning following chest tube placement does report increased chest pain Vitals: Temp (24hrs), Av.3 ??F (36.8 ??C), Min:97.7 ??F (36.5 ??C), Max:99.2 ??F (37.3 ??C) Monitored Vitals Temp: 98 ??F (36.7 ??C) (05/14/25 111) Temp src: Temporal (05/14/251117) Pulse: 81 (05/14/25 111) Heart Rate: 80 bpm (05/14/25 111) BP: 133/87 (05/14/251117) Mean Arterial Pressure: 97 MM HG (05/14/251117) Patient Position (BP): Sitting (05/12/25 1509) Resp: 15 (05/14/25 111) SpO2: (!) 84 % (05/14/25 111) Oxygen Therapy O2 Device: nasal cannula (05/14/25 0900) Oxygen Therapy Flow (L/min): 2 (05/14/25 09) Oxygen Therapy O2 Device: nasal cannula (05/14/25 09) FIO2%: 3 (05/03/254) I/O: Intake/Output Summary (Last 24 hours) at 05/14/2025 1528 Last data filed at 05/14/2025 0932 Gross per 24 hour Intake 680 ml Output 80 ml Net 600 ml Diet:DIET GENERAL Effective Now OBJECTIVE: General Appearance: alert, mild distress. Head: atraumatic, Normocephalic, without obvious abnormality, Eyes: conjunctivae/corneas clear. PERRL, EOM's intact., Heart: regular rate and rhythm, S1, S2 normal Lungs: clear to auscultation bilaterally, normal respiratory effort. Abdomen: Soft, non-tender. Bowel sounds normal. Extremities: extremities normal, atraumatic Skin: Chest wall crepitus MEDICATIONS: Medications reviewed. LAB REVIEW: CBC: Recent Labs 05/13/25 011 WBC 15.5* HGB 12.1* HCT 36.3* PLT 580* MCV 90.5 BMP: Recent Labs 05/13/25109 NA 137 K 4.4 CL 103 CO2 22 ANIONGAP 12 CA 8.7 GLUCOSE 105* BUN 31* CREAT 1.67* GFR 47* OTHER LYTES: No results for input(s): MG , PO4 in the last 72 hours. AccuCheks: No results for input(s): GLUCPOC in the last 72 hours. LFTs: No results for input(s): ALKPHOS , TOTALPROTEIN , BILITOTAL , ALBUMIN , ALT , AST in the last 72 hours. Coagulation: No results for input(s): PT , INR , APTT in the last 72 hours. Cardiac markers: Lab Results Component Value Date BASETROP 20 (H) 04/24/2025 Lab Results Component Value Date 2HRTROP 22 (H) 04/24/2025 Lab Results Component Value Date 6HRTROP 28 (H) 04/25/2025 ASSESSMENT: Principal Problem: Secondary spontaneous pneumothorax Active Problems: Cigarette smoker Elevated serum creatinine Hyperkalemia Acute respiratory failure with hypoxia (CMS/HCC) Chronic kidney disease, stage IV (severe) (CMS/HCC) Moderate protein-calorie malnutrition Hypertension, essential PLAN: Secondary spontaneous pneumothorax Initially presented on 04/24 at [facility] ED due to chest pain and shortness of breath havinglarge pneumothorax Chest tube was placed and transferred here S/p talc pleurodesis, unsuccessful Attempted endobronchial valve placement. However not a candidate due to persistent air leak despiteocclusion testing S/p blood patch on 05/06 Continues to have continuous airleak, cardiothoracic surgery to discuss with [facility] cardiothoracic surgery and they have nothing further to offer Suction at -30 mmHg New large bore chest tube placed on 05/14. Improvement of PTX Acute hypoxic respiratory failure Secondary to the above Has been weaned off oxygen Essential hypertension. Continue home lisinopril, as needed hydralazine labetalol Hyperkalemia CKD Hyperkalemia is resolved, CKD at baseline, continue monitoring renal function Nutrition Status: Malnutrition Nutrition Diagnosis: Moderate protein-calorie malnutrition Provider Assessment/Plan: Symptoms/Signs/Physical Exam: Poor Appetite Etiology: Chronic illness Nutrition Treatment Plan: - Current Diet and/or Nutritional Supplementation ordered: DIET GENERAL Effective Now - Daily weights Impact of Malnutrition on patient condition and outcomes: Increased risk of infection Disposition: home vs ltach Timeframe: 2-3 days. Signed: Piyush Niño MD, 05/14/2025, 3:28 PM * Wyatt Tarango PA - 05/14/2025 7:58 AM CDT Thoracic Surgery Progress Note Admit Date: 04/24/2025 Hospital day: LOS: 20 days SUBJECTIVE: Sitting up to bedside, finishing breakfast, watching TV. 05/03: Chest tube with air leak. Will discuss with Dr. Trammell. 05/04: Left pleural chest tube (pigtail) with air leak, (+) subcutaneous emphysema along left chest wall, patient reports tenderness on exam. Pigtail kinked - adjusted. Repeat CXR. 05/05: LpCT (pigtail) remains w air leak, (+) subcutaneous emphysema and muted phonation. Tendernessto left side remains. EBV unable to be placed yesterday, patient not candidate. 05/06: LpCT (pigtail) remains w air leak, (+) subcutaneous emphysema and muted phonation. Tendernessto left side remains. IR to exchange/upside LpCT today, will attempt blood patch once new CT is in place. Wean oxygen off, goal SpO2 88-94%. 05/07: LpCT (pigtail) remains w air leak, (+) subcutaneous emphysema. Blood patch performed yesterday. 05/08: LpCT (pigtail) with continuous air leak, subQ emphysema. 05/09: LpCT (pigtail) with continuous air leak, subQ emphysema. Addendum: patient have more subQ air on the left shoulder and neck area, with a bit change of voice. Still on room air sat 95%. Pigtail in the same position. Suction placed to -30mmHg. 05/10: LpCT (pigtail) with continuous air leak on -30mmHg suction, muted phonation. Recommend transfer to [place]. 05/11: LpCT (pigtail) with continuous air leak, on -30mmHg suction, muted phonation. Transfer attempted to [place]. Dr. Atkins and Dr. Weller discussed case, to additional options to offer at [place]. 05/12: LpCT (pigtail) continues to have air leak, suction weaned to -20mmHg per Dr. Atkins, repeat CXR 1145. 05/13/: cxr with increased ptx, LpCT (pigtail) continues to have air leak, suction to -30mmHg per Dr. Atkins 05/14: cxr worsened ptx, will place chest tube with larger tube Addendum: keep large chest tube to -30 suction, keep pigtail to water seal for now. Repeat cxr stable OBJECTIVE: BP (!) 151/80 Pulse 94 Temp 97.7 ??F (36.5 ??C) (Temporal) Resp 14 Ht 5' 11 (1.803 m) Wt72.8 kg (160 lb 7.9 oz) SpO2 92% BMI 22.38 kg/m?? Intake/Output Summary (Last 24 hours) at 05/14/2025 0758 Last data filed at 05/14/2025 0500 Gross per 24 hour Intake 960 ml Output 541 ml Net 419 ml Last documented weight: Weight: 72.8 kg (160 lb 7.9 oz) (05/14/25 0500) Weight: 75.6 kg (166 lb 10.7 oz) (04/24/25 1522) Physical Exam: General appearance: Sitting up to side of bed, watching television. Lungs: Respirations unlabored, left pigtail catheter remains in place with continuous airleak. Heart: S1/S2 audible, tachycardic rate, regular rhythm. Abdomen: Soft, non-tender. Extremities: Moves all extremities, warm and well perfused. Skin: Bruising to left chest wall and left neck, (+) palpable subcutaneous air along left chest wall, back, neck. Data Reviewed: CXR Worse ptx ASSESSMENT: Active Hospital Problems Diagnosis Hypertension, essential Moderate protein-calorie malnutrition Chronic kidney disease, stage IV (severe) (CMS/HCC) Acute respiratory failure with hypoxia (CMS/HCC) Secondary spontaneous pneumothorax Cigarette smoker Elevated serum creatinine Hyperkalemia Resolved Hospital Problems No resolved problems to display. PLAN: S/p Bedside talc pleurodesis 05/01. EBV attempted 05/04, patient not candidate for EBV due to persistent air leak. S/P Blood patch on 05/06. Maintain Oxygenation to 88% to 92%, LpCT (pigtail) with persistent air leak. -Keep chest tube to suction at all times. Air leak remains persistent. Case discussion between Dr. Weller and Dr. Atkins, no additional options to offer at [place]. Will place chest large bore chest tube per Dr. Atkins Daily CXR. Rest of care per primary team. [facility] Cosigned by Puma Atkins MD at 05/14/2025 4:24 PM CDT * Piyush Niño MD - 05/13/2025 12:28 PM CDT [facility] Hospitalist Daily Progress Note PATIENT: Froylan Yan AGE: 60 y.o. CSN: [id number] Date of : 1965 Admit Date: 04/24/2025 Hospital Day: LOS: 19 days Summary: Froylan Yan is a 60-year-old male with a significant history of cigarette smoking, hypertension, and chronic kidney disease who was admitted to [facility] on 04/24/2025 for evaluation and management of a secondary spontaneous pneumothorax after presenting to an outside emergency department with sudden onset of left-sided chest pain and shortness of breath. 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 During hospitalization, he experienced acute decompensation with recurrent large left pneumothorax and partial lung collapse after the initial chest tube became dislodged, necessitating transfer to the ICU and emergent repeat chest tube placement; this was confirmed by stat chest x-ray and managed with continuous wall suction and serial imaging. Pulmonology and cardiothoracic surgery were consulted for ongoing management of the persistent air leak and subcutaneous emphysema, and daily chest x-rays were obtained to monitor lung re-expansion and tube position. Despite chest tube management, he continued to have a persistent expiratory air leak and subcutaneous emphysema, and underwent bedsidetalc pleurodesis on 05/01/2025, which did not resolve the air leak. A subsequent attempt at endobronchial valve placement on 05/04/2025 was unsuccessful due to collateral ventilation, as determined by intra-procedural balloon occlusion testing during bronchoscopy. Throughout the admission, he required supplemental oxygen, initially up to 15 L, which was gradually weaned as tolerated; he remained on low-flow nasal cannula at the time of most recent documentation, with SpO2 maintained between 88-94%. He developed moderate protein-calorie malnutrition, as assessed by the nutrition team, and was started on oral nutrition supplements and a potassium-controlled diet. 05/05: Patient continues to have persistent air leak despite chest tube being place to suction. Willdiscuss with CTS. 05/06: Patient continues to have air leak. CTS planning on blood patch to see if this will resolve the air leak, otherwise patient will need to be potentially transferred to higher level of care. 05/07-: Patient had blood patch. Repeat chest X-ray ordered to evaluate pneumothorax. 05/09: Patient continues to have persistent pneumothorax with air leak. 05/10-: No changes. Attempting to transfer patient to higher level of care. 05/12: Cardiothoracic surgery did speak with [facility] and they had nothing further to offer. Repeat x-raythis morning showing some slight improvement. Placed back on suction and then repeat chest x-ray inthe afternoon showing no significant change from morning. Repeat x-ray in the morning 05/13: Suction increased to -30mmHg. SUBJECTIVE: Patient denies any active symptoms in association with his pneumothorax. No chest pain, shortness of breath. Vitals: Temp (24hrs), Av.5 ??F (36.9 ??C), Min:97.7 ??F (36.5 ??C), Max:99.3 ??F (37.4 ??C) Monitored Vitals Temp: 97.7 ??F (36.5 ??C) (05/13/25714) Temp src: Temporal (05/13/25714) Pulse: 79 (05/13/25714) Heart Rate: 81 bpm (05/13/25714) BP: 133/88 (05/13/25714) Mean Arterial Pressure: 97 MM HG (05/13/25714) Patient Position (BP): Sitting (05/12/25 1509) Resp: 12 (05/12/25 1509) SpO2: 93 % (05/13/25 07) Oxygen Therapy O2 Device: nasal cannula (05/13/25 0300) Oxygen Therapy Flow (L/min): 1 (05/13/25 0300) Oxygen Therapy O2 Device: nasal cannula (05/13/25 0300) FIO2%: 3 (05/03/25 0214) I/O: Intake/Output Summary (Last 24 hours) at 05/13/2025 1228 Last data filed at 05/13/2025 1226 Gross per 24 hour Intake 1040 ml Output 6020 ml Net -4980 ml Diet:DIET GENERAL Effective Now OBJECTIVE: General Appearance: alert, mild distress. Head: atraumatic, Normocephalic, without obvious abnormality, Eyes: conjunctivae/corneas clear. PERRL, EOM's intact., Heart: regular rate and rhythm, S1, S2 normal Lungs: clear to auscultation bilaterally, normal respiratory effort. Abdomen: Soft, non-tender. Bowel sounds normal. Extremities: extremities normal, atraumatic MEDICATIONS: Medications reviewed. LAB REVIEW: CBC: Recent Labs 05/13/25 0110 WBC 15.5* HGB 12.1* HCT 36.3* PLT 580* MCV 90.5 BMP: Recent Labs 05/13/25 0110 NA 137 K 4.4 CL 103 CO2 22 ANIONGAP 12 CA 8.7 GLUCOSE 105* BUN 31* CREAT 1.67* GFR 47* OTHER LYTES: No results for input(s): MG , PO4 in the last 72 hours. AccuCheks: No results for input(s): GLUCPOC in the last 72 hours. LFTs: No results for input(s): ALKPHOS , TOTALPROTEIN , BILITOTAL , ALBUMIN , ALT , AST in the last 72 hours. Coagulation: No results for input(s): PT , INR , APTT in the last 72 hours. Cardiac markers: Lab Results Component Value Date BASETROP 20 (H) 04/24/2025 Lab Results Component Value Date 2HRTROP 22 (H) 04/24/2025 Lab Results Component Value Date 6HRTROP 28 (H) 04/25/2025 ASSESSMENT: Principal Problem: Secondary spontaneous pneumothorax Active Problems: Cigarette smoker Elevated serum creatinine Hyperkalemia Acute respiratory failure with hypoxia (CMS/HCC) Chronic kidney disease, stage IV (severe) (CMS/HCC) Moderate protein-calorie malnutrition Hypertension, essential PLAN: Secondary spontaneous pneumothorax Initially presented on 04/[facility] at [facility] ED due to chest pain and shortness of breath havinglarge pneumothorax Chest tube was placed and transferred here S/p talc pleurodesis, unsuccessful Attempted endobronchial valve placement. However not a candidate due to persistent air leak despiteocclusion testing S/p blood patch on 05/06 Continues to have continuous airleak, cardiothoracic surgery to discuss with [facility] cardiothoracic surgery and they have nothing further to offer Suction at -30 millimeters mercury, daily chest x-ray Acute hypoxic respiratory failure Secondary to the above Has been weaned off oxygen Essential hypertension. Continue home lisinopril, as needed hydralazine labetalol Hyperkalemia CKD Hyperkalemia is resolved, CKD at baseline, continue monitoring renal function Nutrition Status: Malnutrition Nutrition Diagnosis: Moderate protein-calorie malnutrition Provider Assessment/Plan: Symptoms/Signs/Physical Exam: Poor Appetite Etiology: Chronic illness Nutrition Treatment Plan: - Current Diet and/or Nutritional Supplementation ordered: DIET GENERAL Effective Now - Daily weights Impact of Malnutrition on patient condition and outcomes: Increased risk of infection Disposition: home vs ltach Timeframe: 2-3 days. Signed: Piyush Niño MD, 05/13/2025, 12:28 PM * Wyatt Tarango PA - 05/13/2025 8:22 AM CDT Thoracic Surgery Progress Note Admit Date: 04/24/2025 Hospital day: LOS: 19 days SUBJECTIVE: Sitting up to bedside, finishing breakfast, watching TV. 05/03: Chest tube with air leak. Will discuss with Dr. Trammell. 05/04: Left pleural chest tube (pigtail) with air leak, (+) subcutaneous emphysema along left chest wall, patient reports tenderness on exam. Pigtail kinked - adjusted. Repeat CXR. 05/05: LpCT (pigtail) remains w air leak, (+) subcutaneous emphysema and muted phonation. Tendernessto left side remains. EBV unable to be placed yesterday, patient not candidate. 05/06: LpCT (pigtail) remains w air leak, (+) subcutaneous emphysema and muted phonation. Tendernessto left side remains. IR to exchange/upside LpCT today, will attempt blood patch once new CT is in place. Wean oxygen off, goal SpO2 88-94%. 05/07: LpCT (pigtail) remains w air leak, (+) subcutaneous emphysema. Blood patch performed yesterday. 05/08: LpCT (pigtail) with continuous air leak, subQ emphysema. 05/09: LpCT (pigtail) with continuous air leak, subQ emphysema. Addendum: patient have more subQ air on the left shoulder and neck area, with a bit change of voice. Still on room air sat 95%. Pigtail in the same position. Suction placed to -30mmHg. 05/10: LpCT (pigtail) with continuous air leak on -30mmHg suction, muted phonation. Recommend transfer to [place]. 05/11: LpCT (pigtail) with continuous air leak, on -30mmHg suction, muted phonation. Transfer attempted to [place]. Dr. Atkins and Dr. Weller discussed case, to additional options to offer at [place]. 05/12: LpCT (pigtail) continues to have air leak, suction weaned to -20mmHg per Dr. Atkins, repeat CXR 1145. 05/13/: cxr with increased ptx, LpCT (pigtail) continues to have air leak, suction to -30mmHg per Dr. Atkins OBJECTIVE: BP 133/88 Pulse 79 Temp 97.7 ??F (36.5 ??C) (Temporal) Resp 12 Ht 5' 11 (1.803 m) Wt 71 kg (156 lb 8.4 oz) SpO2 93% BMI 21.83 kg/m?? Intake/Output Summary (Last 24 hours) at 05/13/2025 0823 Last data filed at 05/13/2025 0710 Gross per 24 hour Intake 1120 ml Output 7240 ml Net -6120 ml Last documented weight: Weight: 71 kg (156 lb 8.4 oz) (05/13/25 0308) Weight: 75.6 kg (166 lb 10.7 oz) (04/24/25 1522) Physical Exam: General appearance: Sitting up to side of bed, watching television. Lungs: Respirations unlabored, left pigtail catheter remains in place with continuous airleak. Heart: S1/S2 audible, tachycardic rate, regular rhythm. Abdomen: Soft, non-tender. Extremities: Moves all extremities, warm and well perfused. Skin: Bruising to left chest wall and left neck, (+) palpable subcutaneous air along left chest wall, back, neck. Data Reviewed: CXR IMPRESSION: Please see below. Exam: XR CHEST PA OR AP 1 VW Date/Time of Exam: 05/13/2025 4:44 AM Reason For Exam: Pneumothorax. Diagnosis: See Reason for Exam. Findings: Comparison study 05/12/2025. Progression of moderately large left-sided pneumothorax. Stable position of pigtail drain left hemithorax. No significant pleural effusion. No new airspace disease. Stable extensive subcutaneous air both sides of chest wall and neck. IMPRESSION: Progression of moderately large left-sided pneumothorax. Stable position of left-sided pigtail drain. ASSESSMENT: Active Hospital Problems Diagnosis Hypertension, essential Moderate protein-calorie malnutrition Chronic kidney disease, stage IV (severe) (CMS/HCC) Acute respiratory failure with hypoxia (CMS/HCC) Secondary spontaneous pneumothorax Cigarette smoker Elevated serum creatinine Hyperkalemia Resolved Hospital Problems No resolved problems to display. PLAN: S/p Bedside talc pleurodesis 05/01. EBV attempted 05/04, patient not candidate for EBV due to persistent air leak. S/P Blood patch on 05/06. Maintain Oxygenation to 88% to 92%, LpCT (pigtail) with persistent air leak. -Keep chest tube to suction at all times. Air leak remains persistent. Case discussion between Dr. Weller and Dr. Atkins, no additional options to offer at [place]. Suction setting changed to -30mmHg per Dr. Atkins Daily CXR. Rest of care per primary team. [facility] Thor[facility] Cosigned by Puma Atkins MD at 05/13/2025 10:33 AM CDT * Piyush Niño MD - 05/12/2025 5:31 PM CDT [facility] Hospitalist Daily Progress Note PATIENT: Froylan Yan AGE: 60 y.o. CSN: [id number] Date of : 1965 Admit Date: 04/24/2025 Hospital Day: LOS: 18 days Summary: Froylan Yan is a 60-year-old male with a significant history of cigarette smoking, hypertension, and chronic kidney disease who was admitted to [facility] on 04/24/2025 for evaluation and management of a secondary spontaneous pneumothorax after presenting to an outside emergency department with sudden onset of left-sided chest pain and shortness of breath. 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 During hospitalization, he experienced acute decompensation with recurrent large left pneumothorax and partial lung collapse after the initial chest tube became dislodged, necessitating transfer to the ICU and emergent repeat chest tube placement; this was confirmed by stat chest x-ray and managed with continuous wall suction and serial imaging. Pulmonology and cardiothoracic surgery were consulted for ongoing management of the persistent air leak and subcutaneous emphysema, and daily chest x-rays were obtained to monitor lung re-expansion and tube position. Despite chest tube management, he continued to have a persistent expiratory air leak and subcutaneous emphysema, and underwent bedsidetalc pleurodesis on 05/01/2025, which did not resolve the air leak. A subsequent attempt at endobronchial valve placement on 05/04/2025 was unsuccessful due to collateral ventilation, as determined by intra-procedural balloon occlusion testing during bronchoscopy. Throughout the admission, he required supplemental oxygen, initially up to 15 L, which was gradually weaned as tolerated; he remained on low-flow nasal cannula at the time of most recent documentation, with SpO2 maintained between 88-94%. He developed moderate protein-calorie malnutrition, as assessed by the nutrition team, and was started on oral nutrition supplements and a potassium-controlled diet. 05/05: Patient continues to have persistent air leak despite chest tube being place to suction. Willdiscuss with CTS. 05/06: Patient continues to have air leak. CTS planning on blood patch to see if this will resolve the air leak, otherwise patient will need to be potentially transferred to higher level of care. 05/07-: Patient had blood patch. Repeat chest X-ray ordered to evaluate pneumothorax. 05/09: Patient continues to have persistent pneumothorax with air leak. 05/10-: No changes. Attempting to transfer patient to higher level of care. 05/12: Cardiothoracic surgery did speak with [facility] and they had nothing further to offer. Repeat x-raythis morning showing some slight improvement. Placed back on suction and then repeat chest x-ray inthe afternoon showing no significant change from morning. Repeat x-ray in the morning SUBJECTIVE: Patient reports he is doing well this morning with no active complaints Vitals: Temp (24hrs), Av ??F (36.7 ??C), Min:97 ??F (36.1 ??C), Max:99 ??F (37.2 ??C) Monitored Vitals Temp: 98.5 ??F (36.9 ??C) (05/12/25 1509) Temp src: Temporal (05/12/25 150) Pulse: 99 (05/12/25 1715) Heart Rate: 99 bpm (05/12/25 171) BP: 138/74 (05/12/25 150) Mean Arterial Pressure: 90 MM HG (05/12/25 150) Patient Position (BP): Sitting (05/12/25 150) Resp: 12 (05/12/251508) SpO2: 95 % (05/12/251714) Oxygen Therapy O2 Device: room air (05/12/251524) Oxygen Therapy Flow (L/min): 1 (05/09/25 0705) Oxygen Therapy O2 Device: room air (05/12/25 152) FIO2%: 3 (05/03/25 0214) I/O: Intake/Output Summary (Last 24 hours) at 05/12/2025 1731 Last data filed at 05/12/2025 1200 Gross per 24 hour Intake 1350 ml Output 3120 ml Net -1770 ml Diet:DIET GENERAL Effective Now OBJECTIVE: General Appearance: alert, mild distress. Head: atraumatic, Normocephalic, without obvious abnormality, Eyes: conjunctivae/corneas clear. PERRL, EOM's intact., Heart: regular rate and rhythm, S1, S2 normal Lungs: clear to auscultation bilaterally, normal respiratory effort. Abdomen: Soft, non-tender. Bowel sounds normal. Extremities: extremities normal, atraumatic MEDICATIONS: Medications reviewed. LAB REVIEW: CBC: Recent Labs 05/10/25 09 WBC 11.3* HGB 12.6* HCT 38.2* PLT 590* MCV 91.0 BMP: Recent Labs 05/10/25 09 NA 137 K 4.8 CL 101 CO2 25 ANIONGAP 11 CA 9.0 GLUCOSE 108* BUN 37* CREAT 1.73* GFR 45* OTHER LYTES: No results for input(s): MG , PO4 in the last 72 hours. AccuCheks: No results for input(s): GLUCPOC in the last 72 hours. LFTs: Recent Labs 05/10/25 0926 ALKPHOS 72 TOTALPROTEIN 5.9* BILITOTAL 0.2 ALBUMIN 3.5 ALT 35 AST 27 Coagulation: Recent Labs 05/10/25 0926 PT 14.3 INR 1.1 APTT 28.9 Cardiac markers: Lab Results Component Value Date BASETROP 20 (H) 04/24/2025 Lab Results Component Value Date 2HRTROP 22 (H) 04/24/2025 Lab Results Component Value Date 6HRTROP 28 (H) 04/25/2025 ASSESSMENT: Principal Problem: Secondary spontaneous pneumothorax Active Problems: Cigarette smoker Elevated serum creatinine Hyperkalemia Acute respiratory failure with hypoxia (CMS/HCC) Chronic kidney disease, stage IV (severe) (CMS/HCC) Moderate protein-calorie malnutrition Hypertension, essential PLAN: Pulmonary :Secondary Spontaneous Pneumothorax. 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 Interventional radiology was consulted for chest tube exchange/upsize and possible blood patch. He remains on supplemental oxygen, with SpO2 maintained between 88-94%. No significant improvement in air leak. Persistent pneumothorax. Will continue to monitor daily chest X-ray.Cardiothoracic surgery continues to follow along. Did attempt transfer to [facility] although they do not have anything further to offer at this time Suction increased to -20 mmHg, repeat x-ray in the morning Acute Respiratory Failure with Hypoxia. Secondary to the pneumothorax and air leak with gradual weaning as tolerated. Cardiology : Essential hypertension. Trending up. Will restart home dose of ACEi. Monitor renal function and K levels. Fluids/Lytes:Hyperkalemia. Attributed to CKD and prior lisinopril use. Resolved. Continue to monitor electrolyte levels. Moderate Protein-Calorie Malnutrition. Nutrition interventions included oral supplements and monitoring, with ongoing malnutrition pathway and serial assessments. Probably secondary to patient's underlying history of tobacco use with probable development of COPD with acute illness and current hospit alization. 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 Renal:CKD Stg IV. Renal function currently trending steady. Patient will need ongoing monitoring with nephrology in the clinic. Disposition: home vs ltach Timeframe: 2-3 days. Medical Decision Making: Signed: Piyush Niño MD, 05/12/2025, 5:31 PM * Zabrina Bynum PA-C - 05/12/2025 8:47 AM CDT Images from the original note were not included. Thoracic Surgery Progress Note Admit Date: 04/24/2025 Hospital day: LOS: 18 days SUBJECTIVE: Sitting up to bedside, finishing breakfast, watching TV. 05/03: Chest tube with air leak. Will discuss with Dr. Trammell. 05/04: Left pleural chest tube (pigtail) with air leak, (+) subcutaneous emphysema along left chest wall, patient reports tenderness on exam. Pigtail kinked - adjusted. Repeat CXR. 05/05: LpCT (pigtail) remains w air leak, (+) subcutaneous emphysema and muted phonation. Tendernessto left side remains. EBV unable to be placed yesterday, patient not candidate. 05/06: LpCT (pigtail) remains w air leak, (+) subcutaneous emphysema and muted phonation. Tendernessto left side remains. IR to exchange/upside LpCT today, will attempt blood patch once new CT is in place. Wean oxygen off, goal SpO2 88-94%. 05/07: LpCT (pigtail) remains w air leak, (+) subcutaneous emphysema. Blood patch performed yesterday. 05/08: LpCT (pigtail) with continuous air leak, subQ emphysema. 05/09: LpCT (pigtail) with continuous air leak, subQ emphysema. Addendum: patient have more subQ air on the left shoulder and neck area, with a bit change of voice. Still on room air sat 95%. Pigtail in the same position. Suction placed to -30mmHg. 05/10: LpCT (pigtail) with continuous air leak on -30mmHg suction, muted phonation. Recommend transfer to [place]. 05/11: LpCT (pigtail) with continuous air leak, on -30mmHg suction, muted phonation. Transfer attempted to [place]. Dr. Atkins and Dr. Weller discussed case, to additional options to offer at [place]. 05/12: LpCT (pigtail) continues to have air leak, suction weaned to -20mmHg per Dr. Atkins, repeat CXR 1145. OBJECTIVE: BP (!) 166/80 Pulse 98 Temp 99 ??F (37.2 ??C) (Temporal) Resp 16 Ht 5' 11 (1.803 m) Wt 71.4 kg (157 lb 6.5 oz) SpO2 (!) 84% BMI 21.95 kg/m?? Intake/Output Summary (Last 24 hours) at 05/12/2025 0847 Last data filed at 05/12/2025 0530 Gross per 24 hour Intake 550 ml Output 3140 ml Net -2590 ml Last documented weight: Weight: 71.4 kg (157 lb 6.5 oz) (05/12/25 0215) Weight: 75.6 kg (166 lb 10.7 oz) (04/24/25 1522) Physical Exam: General appearance: Sitting up to side of bed, watching television. Lungs: Respirations unlabored, left pigtail catheter remains in place with continuous airleak. Heart: S1/S2 audible, tachycardic rate, regular rhythm. Abdomen: Soft, non-tender. Extremities: Moves all extremities, warm and well perfused. Skin: Bruising to left chest wall and left neck, (+) palpable subcutaneous air along left chest wall, back, neck. Data Reviewed: CXR 05/11/25: Date/Time of Exam: 05/11/2025 5:10 AM Reason For Exam: Pneumothorax Diagnosis: See Reason for Exam Comparison is to a study from the prior day. The left-sided pleural drain tube remains in place. The left pneumothorax has significantly increased in size now approximately 40%. No pneumothorax is seen on the right. Atelectasis is present in the left lower lung. The right lung is clear. The heart size is normal. A large amount of subcutaneous emphysema is again seen over the chest. IMPRESSION: Left pneumothorax has significantly increased in size, now approximately 40%. ASSESSMENT: Active Hospital Problems Diagnosis Hypertension, essential Moderate protein-calorie malnutrition Chronic kidney disease, stage IV (severe) (CMS/HCC) Acute respiratory failure with hypoxia (CMS/HCC) Secondary spontaneous pneumothorax Cigarette smoker Elevated serum creatinine Hyperkalemia Resolved Hospital Problems No resolved problems to display. PLAN: S/p Bedside talc pleurodesis 05/01. EBV attempted 05/04, patient not candidate for EBV due to persistent air leak. S/P Blood patch on 05/06. Maintain Oxygenation to 88% to 92%, LpCT (pigtail) with persistent air leak. -Keep chest tube to suction at all times. Air leak remains persistent. Case discussion between Dr. Weller and Dr. Atkins, no additional options to offer at [place]. Suction setting changed to -20mmHg per Dr. Atkins Repeat CXR at 1145. Daily CXR. Rest of care per primary team. Sunshine Do sSantos, AYUSH, SHARLENE, ZAINAB Cardiac and Thoracic Surgery Cosigned by Puma Atkins MD at 05/12/2025 12:33 PM CDT * Macy Gonzalez RN - 05/12/2025 2:10 AM CDT Patient had two very short back to back epidsodes of bradycardia (5 seconds or less), immediately resumed to NSR. BP stable, patient resting quietly, asymptomatic, aroused without difficulty from sleep. Will monitor. * Zabrina Bynum PA-C - 05/11/2025 2:07 PM CDT Spoke with Dr. Moreno, per Dr. Atkins: At this time, we have exhausted any therapies that we canoffer and have not had much in the way of improvement. From my standpoint, he is not a surgical candidate. However, I would recommend transferring to a higher level center to see if they are willing to pursue other interventions. The primary team can initiate the transfer and I would be happy to speak to any provider with questions regarding this patient. CT Surgery recommends transfer for thoracic surgery opinion at tertiary care facility. Dr. Atkins is willing to be called for telephone conference with receiving surgeon if necessary. CT Surgery will sign off. Sunshine Dos Santos MPAS, SHARLENE, PA-C Cardiac and Thoracic Surgery Cosigned by Puma Atkins MD at 05/11/2025 6:27 PM CDT * Jerry Moreno MD - 05/11/2025 10:17 AM CDT [facility] Hospitalist Daily Progress Note PATIENT: Froylan Yan AGE: 60 y.o. CSN: [id number] Date of : 1965 Admit Date: 04/24/2025 Hospital Day: LOS: 17 days Summary: Froylan Yan is a 60-year-old male with a significant history of cigarette smoking, hypertension, and chronic kidney disease who was admitted to [facility] on 04/24/2025 for evaluation and management of a secondary spontaneous pneumothorax after presenting to an outside emergency department with sudden onset of left-sided chest pain and shortness of breath. 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 During hospitalization, he experienced acute decompensation with recurrent large left pneumothorax and partial lung collapse after the initial chest tube became dislodged, necessitating transfer to the ICU and emergent repeat chest tube placement; this was confirmed by stat chest x-ray and managed with continuous wall suction and serial imaging. Pulmonology and cardiothoracic surgery were consulted for ongoing management of the persistent air leak and subcutaneous emphysema, and daily chest x-rays were obtained to monitor lung re-expansion and tube position. Despite chest tube management, he continued to have a persistent expiratory air leak and subcutaneous emphysema, and underwent bedsidetalc pleurodesis on 05/01/2025, which did not resolve the air leak. A subsequent attempt at endobronchial valve placement on 05/04/2025 was unsuccessful due to collateral ventilation, as determined by intra-procedural balloon occlusion testing during bronchoscopy. Throughout the admission, he required supplemental oxygen, initially up to 15 L, which was gradually weaned as tolerated; he remained on low-flow nasal cannula at the time of most recent documentation, with SpO2 maintained between 88-94%. He developed moderate protein-calorie malnutrition, as assessed by the nutrition team, and was started on oral nutrition supplements and a potassium-controlled diet. 05/05: Patient continues to have persistent air leak despite chest tube being place to suction. Willdiscuss with CTS. 05/06: Patient continues to have air leak. CTS planning on blood patch to see if this will resolve the air leak, otherwise patient will need to be potentially transferred to higher level of care. 05/07-: Patient had blood patch. Repeat chest X-ray ordered to evaluate pneumothorax. 05/09: Patient continues to have persistent pneumothorax with air leak. 05/10-: No changes. Attempting to transfer patient to higher level of care. SUBJECTIVE: Froylan Yan is a 60 y.o. male who denies any new complaints or concerns. Review of Systems: Negative other than what is noted in subjective above. Vitals: Temp (24hrs), Av.3 ??F (36.8 ??C), Min:98 ??F (36.7 ??C), Max:98.6 ??F (37 ??C) Monitored Vitals Temp: 98 ??F (36.7 ??C) (05/11/25 030) Temp src: Temporal (05/11/25 030) Pulse: 94 (05/11/25 08) Heart Rate: 76 bpm (05/11/25599) BP: 128/79 (05/11/25 08) Mean Arterial Pressure: 98 MM HG (05/11/25 0306) Patient Position (BP): Sitting (05/10/25 1511) Resp: 12 (05/11/25599) SpO2: 93 % (05/11/25599) Oxygen Therapy O2 Device: room air (05/11/25744) Oxygen Therapy Flow (L/min): 1 (05/09/25 07) Oxygen Therapy O2 Device: room air (05/11/25744) FIO2%: 3 (05/03/25 0214) I/O: Intake/Output Summary (Last 24 hours) at 05/11/2025 1017 Last data filed at 05/11/2025 0824 Gross per 24 hour Intake 1040 ml Output 6740 ml Net -5700 ml Diet:DIET GENERAL Effective Now OBJECTIVE: General Appearance: alert, mild distress. Head: atraumatic, Normocephalic, without obvious abnormality, Eyes: conjunctivae/corneas clear. PERRL, EOM's intact., Heart: regular rate and rhythm, S1, S2 normal, no murmur, click, rub or gallop. Lungs: clear to auscultation bilaterally, normal respiratory effort. Abdomen: Soft, non-tender. Bowel sounds normal. No masses, no organomegaly.. Extremities: extremities normal, atraumatic, no cyanosis or edema, intact distal pulses, moves all extremities equally, no edema, redness or tenderness in the calves or thighs, normal strength, normal tone. MEDICATIONS: Medications reviewed. LAB REVIEW: CBC: Recent Labs 05/10/25925 WBC 11.3* HGB 12.6* HCT 38.2* PLT 590* MCV 91.0 BMP: Recent Labs 05/10/25925 NA 137 K 4.8 CL 101 CO2 25 ANIONGAP 11 CA 9.0 GLUCOSE 108* BUN 37* CREAT 1.73* GFR 45* OTHER LYTES: No results for input(s): MG , PO4 in the last 72 hours. AccuCheks: No results for input(s): GLUCPOC in the last 72 hours. LFTs: Recent Labs 05/10/25925 ALKPHOS 72 TOTALPROTEIN 5.9* BILITOTAL 0.2 ALBUMIN 3.5 ALT 35 AST 27 Coagulation: Recent Labs 05/10/25925 PT 14.3 INR 1.1 APTT 28.9 Cardiac markers: Lab Results Component Value Date BASETROP 20 (H) 04/24/2025 Lab Results Component Value Date 2HRTROP 22 (H) 04/24/2025 Lab Results Component Value Date 6HRTROP 28 (H) 04/25/2025 ASSESSMENT: Principal Problem: Secondary spontaneous pneumothorax Active Problems: Cigarette smoker Elevated serum creatinine Hyperkalemia Acute respiratory failure with hypoxia (CMS/HCC) Chronic kidney disease, stage IV (severe) (CMS/HCC) Moderate protein-calorie malnutrition Hypertension, essential PLAN: Pulmonary :Secondary Spontaneous Pneumothorax. 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 Interventional radiology was consulted for chest tube exchange/upsize and possible blood patch. He remains on supplemental oxygen, with SpO2 maintained between 88-94%. No significant improvement in air leak. Persistent pneumothorax. Will continue to monitor daily chest X-ray.Have initiated transfer process to move patient to [facility] in [place]. Awaiting response. CTS has signed off on patient. Acute Respiratory Failure with Hypoxia. Secondary to the pneumothorax and air leak with gradual weaning as tolerated. Cardiology : Essential hypertension. Trending up. Will restart home dose of ACEi. Monitor renal function and K levels. Fluids/Lytes:Hyperkalemia. Attributed to CKD and prior lisinopril use. Resolved. Continue to monitor electrolyte levels. Moderate Protein-Calorie Malnutrition. Nutrition interventions included oral supplements and monitoring, with ongoing malnutrition pathway and serial assessments. Probably secondary to patient's underlying history of tobacco use with probable development of COPD with acute illness and current hospit alization. 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 Renal:CKD Stg IV. Renal function currently trending steady. Patient will need ongoing monitoring with nephrology in the clinic. Disposition: Higher level of care. Timeframe: 2-3 days. Medical Decision Making: I spent a total of 40 minutes on the management of the patient (on the dayof the encounter) which included face to face and non-face to face work. The work included: preparing to see the patient, performing the exam and evaluation, documenting in the EHR, and Counseling and education pt/family/caregiver, Ordering meds, tests, procedures, Independent interpreting results and communicating results to pt/family/caregiver, and Care coordination. Signed: Jerry Moreno MD, 05/11/2025, 10:17 AM * Violette Mulligan, RD - 05/10/2025 1:19 PM CDT Patient seen/chart reviewed during routine patient care/meal rounds. Nutritional status/assessment: PO intake appears adequate for nutritional needs. No additional acute care nutritional risk factorsidentified. Malnutrition Nutrition Diagnosis: Moderate protein-calorie malnutrition (05/03/25 1300) Recommendation/Plan for follow up: Will continue to follow during weekly patient care/meal rounds, assisting with intake needs as appropriate. Current diet/nutrition support: DIET GENERAL Effective Now Food/Meal: Breakfast (05/10/25 0800),Intake (%): 100% (05/10/25 0800) Weight status/changes: Weight: 72.2 kg (159 lb 2.8 oz) (05/10/25 0315) Admission :Weight: 75.6 kg (166 lb 10.7 oz) (04/24/25 1522) Height: 5' 11 (180.3 cm) (04/24/25 1522) Body mass index is 22.2 kg/m??. Wt Readings from Last 8 Encounters: 05/10/25 72.2 kg (159 lb 2.8 oz) Additional assessment indices: Lopez Score: 22 (05/10/25 0700) Last Bowel Movement (mm/dd/yyyy): 05/10/25 (05/10/25 1045) Allergies No Known Allergies Labs: Lab Results Component Value Date GLUCOSE 108 (H) 05/10/2025 * Puma Atkins MD - 05/10/2025 8:18 AM CDT Images from the original note were not included. Thoracic Surgery Progress Note Admit Date: 04/24/2025 Hospital day: LOS: 16 days SUBJECTIVE: Sitting up to bedside, finishing breakfast, watching TV. 05/03: Chest tube with air leak. Will discuss with Dr. Trammell. 05/04: Left pleural chest tube (pigtail) with air leak, (+) subcutaneous emphysema along left chest wall, patient reports tenderness on exam. Pigtail kinked - adjusted. Repeat CXR. 05/05: LpCT (pigtail) remains w air leak, (+) subcutaneous emphysema and muted phonation. Tendernessto left side remains. EBV unable to be placed yesterday, patient not candidate. 05/06: LpCT (pigtail) remains w air leak, (+) subcutaneous emphysema and muted phonation. Tendernessto left side remains. IR to exchange/upside LpCT today, will attempt blood patch once new CT is in place. Wean oxygen off, goal SpO2 88-94%. 05/07: LpCT (pigtail) remains w air leak, (+) subcutaneous emphysema. Blood patch performed yesterday. 05/08: LpCT (pigtail) with continuous air leak, subQ emphysema. 05/09: LpCT (pigtail) with continuous air leak, subQ emphysema. Addendum: patient have more subQ air on the left shoulder and neck area, with a bit change of voice. Still on room air sat 95%. Pigtail in the same position. Suction placed to -30mmHg. 05/10: LpCT (pigtail) with continuous air leak on -30mmHg suction, muted phonation. Recommend transfer to [place]. OBJECTIVE: BP 124/75 (BP Location: Left arm, Patient Position (BP): Sitting) Pulse 86 Temp 98.2 ??F (36.8 ??C) (Temporal) Resp 14 Ht 5' 11 (1.803 m) Wt 72.2 kg (159 lb 2.8 oz) SpO2 93% BMI 22.20 kg/m?? Intake/Output Summary (Last 24 hours) at 05/10/2025 0818 Last data filed at 05/10/2025 0800 Gross per 24 hour Intake 1110 ml Output 2997 ml Net -1887 ml Last documented weight: Weight: 72.2 kg (159 lb 2.8 oz) (05/10/25 0315) Weight: 75.6 kg (166 lb 10.7 oz) (04/24/25 1522) Physical Exam: General appearance: Sitting up to side of bed, watching television. Lungs: Respirations unlabored, left pigtail catheter remains in place with grade IV continuous airleak. Heart: S1/S2 audible, tachycardic rate, regular rhythm. Abdomen: Soft, non-tender. Extremities: Moves all extremities, warm and well perfused. Skin: Bruising to left chest wall and left neck, (+) palpable subcutaneous air along left chest wall, back, neck. Data Reviewed: CXR 05/10/25: FINDINGS: Left pigtail catheter in place. Similar appearance left pneumothorax. Extensive chest wall and supraclavicular subcutaneous emphysema, unchanged. Mild residual pneumomediastinum. No lobar consolidation or large pleural effusion. Background emphysematous changes are noted. Normal heart size. ASSESSMENT: Active Hospital Problems Diagnosis Hypertension, essential Moderate protein-calorie malnutrition Chronic kidney disease, stage IV (severe) (CMS/HCC) Acute respiratory failure with hypoxia (CMS/HCC) Secondary spontaneous pneumothorax Cigarette smoker Elevated serum creatinine Hyperkalemia Resolved Hospital Problems No resolved problems to display. PLAN: S/p Bedside talc pleurodesis 05/01. EBV attempted 05/04, patient not candidate for EBV due to persistent air leak. S/P Blood patch on 05/06. Maintain Oxygenation to 88% to 92%, LpCT (pigtail) with persistent air leak. -Keep chest tube to suction at all times. Air leak remains persistent, will need to be transferred to [place] for thoracic surgery evaluation for persistent air leak. Discussed with Dr. Atkins. Suction setting changed to -30mmHg Daily CXR Rest of care per primary team. Zabrina Bynum [facility], MPAS, SHARLENE, ZAINAB Cardiac and Thoracic Surgery At this time, we have exhausted any therapies that we can offer and have not had much in the way ofimprovement. From my standpoint, he is not a surgical candidate. However, I would recommend transferring to a higher level center to see if they are willing to pursue other interventions. The primaryteam can initiate the transfer and I would be happy to speak to any provider with questions regarding this patient. * Jerry Moreno MD - 05/09/2025 5:37 PM CDT [facility] Hospitalist Daily Progress Note PATIENT: Froylan Yan AGE: 60 y.o. CSN: [id number] Date of : 1965 Admit Date: 04/24/2025 Hospital Day: LOS: 15 days Summary: Froylan Yan is a 60-year-old male with a significant history of cigarette smoking, hypertension, and chronic kidney disease who was admitted to [facility] on 04/24/2025 for evaluation and management of a secondary spontaneous pneumothorax after presenting to an outside emergency department with sudden onset of left-sided chest pain and shortness of breath. 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 During hospitalization, he experienced acute decompensation with recurrent large left pneumothorax and partial lung collapse after the initial chest tube became dislodged, necessitating transfer to the ICU and emergent repeat chest tube placement; this was confirmed by stat chest x-ray and managed with continuous wall suction and serial imaging. Pulmonology and cardiothoracic surgery were consulted for ongoing management of the persistent air leak and subcutaneous emphysema, and daily chest x-rays were obtained to monitor lung re-expansion and tube position. Despite chest tube management, he continued to have a persistent expiratory air leak and subcutaneous emphysema, and underwent bedsidetalc pleurodesis on 05/01/2025, which did not resolve the air leak. A subsequent attempt at endobronchial valve placement on 05/04/2025 was unsuccessful due to collateral ventilation, as determined by intra-procedural balloon occlusion testing during bronchoscopy. Throughout the admission, he required supplemental oxygen, initially up to 15 L, which was gradually weaned as tolerated; he remained on low-flow nasal cannula at the time of most recent documentation, with SpO2 maintained between 88-94%. He developed moderate protein-calorie malnutrition, as assessed by the nutrition team, and was started on oral nutrition supplements and a potassium-controlled diet. 05/05: Patient continues to have persistent air leak despite chest tube being place to suction. Willdiscuss with CTS. 05/06: Patient continues to have air leak. CTS planning on blood patch to see if this will resolve the air leak, otherwise patient will need to be potentially transferred to higher level of care. 05/07-: Patient had blood patch. Repeat chest X-ray ordered to evaluate pneumothorax. 05/09: Patient continues to have persistent pneumothorax with air leak. SUBJECTIVE: Froylan Yan is a 60 y.o. male who denies any new complaints or concerns. Review of Systems: Negative other than what is noted in subjective above. Vitals: Temp (24hrs), Av.5 ??F (36.9 ??C), Min:97.9 ??F (36.6 ??C), Max:98.8 ??F (37.1 ??C) Monitored Vitals Temp: 98.4 ??F (36.9 ??C) (05/09/25 1555) Temp src: Temporal (05/09/25 155) Pulse: 80 (05/09/25 1630) Heart Rate: 83 bpm (05/09/25 163) BP: (!) 158/97 (05/09/25 1555) Mean Arterial Pressure: 110 MM HG (05/09/25 155) Patient Position (BP): Sitting (05/09/25 155) Resp: 16 (05/09/25 1630) SpO2: 96 % (05/09/25 1630) Oxygen Therapy O2 Device: room air (05/09/25 155) Oxygen Therapy Flow (L/min): 1 (05/09/25 0705) Oxygen Therapy O2 Device: room air (05/09/25 155) FIO2%: 3 (05/03/25 0214) I/O: Intake/Output Summary (Last 24 hours) at 05/09/2025 1737 Last data filed at 05/09/2025 1500 Gross per 24 hour Intake 655 ml Output 2295 ml Net -1640 ml Diet:DIET GENERAL Effective Now OBJECTIVE: General Appearance: alert, mild distress. Head: atraumatic, Normocephalic, without obvious abnormality, Eyes: conjunctivae/corneas clear. PERRL, EOM's intact., Heart: regular rate and rhythm, S1, S2 normal, no murmur, click, rub or gallop. Lungs: clear to auscultation bilaterally, normal respiratory effort. Abdomen: Soft, non-tender. Bowel sounds normal. No masses, no organomegaly.. Extremities: extremities normal, atraumatic, no cyanosis or edema, intact distal pulses, moves all extremities equally, no edema, redness or tenderness in the calves or thighs, normal strength, normal tone. MEDICATIONS: Medications reviewed. LAB REVIEW: CBC: No results for input(s): WBC , HGB , HCT , PLT , MCV in the last 72 hours. BMP: No results for input(s): NA , K , CL , CO2 , ANIONGAP , CA , GLUCOSE , BUN , CREAT , GFR in the last 72 hours. OTHER LYTES: No results for input(s): MG , PO4 in the last 72 hours. AccuCheks: No results for input(s): GLUCPOC in the last 72 hours. LFTs:No results for input(s): ALKPHOS , TOTALPROTEIN , BILITOTAL , ALBUMIN , ALT , AST in the last 72 hours. Coagulation: No results for input(s): PT , INR , APTT in the last 72 hours. Cardiac markers: Lab Results Component Value Date BASETROP 20 (H) 04/24/2025 Lab Results Component Value Date 2HRTROP 22 (H) 04/24/2025 Lab Results Component Value Date 6HRTROP 28 (H) 04/25/2025 ASSESSMENT: Principal Problem: Secondary spontaneous pneumothorax Active Problems: Cigarette smoker Elevated serum creatinine Hyperkalemia Acute respiratory failure with hypoxia (CMS/HCC) Chronic kidney disease, stage IV (severe) (CMS/HCC) Moderate protein-calorie malnutrition Hypertension, essential PLAN: Pulmonary :Secondary Spontaneous Pneumothorax. 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 Interventional radiology was consulted for chest tube exchange/upsize and possible blood patch. He remains on supplemental oxygen, with SpO2 maintained between 88-94%. No significant improvement in air leak. Persistent pneumothorax. Will continue to monitor daily chest X-ray. Acute Respiratory Failure with Hypoxia. Secondary to the pneumothorax and air leak with gradual weaning as tolerated. Cardiology : Essential hypertension. Trending up. Will restart home dose of ACEi. Monitor renal function and K levels. Fluids/Lytes:Hyperkalemia. Attributed to CKD and prior lisinopril use. Resolved. Continue to monitor electrolyte levels. Moderate Protein-Calorie Malnutrition. Nutrition interventions included oral supplements and monitoring, with ongoing malnutrition pathway and serial assessments. Probably secondary to patient's underlying history of tobacco use with probable development of COPD with acute illness and current hospit alization. Patient's malnutrition will have a significant impact on the patient's short term recovery and retirement prognosis. Renal:CKD Stg IV. Renal function currently trending steady. Patient will need ongoing monitoring with nephrology in the clinic. Medical Decision Making: I spent a total of 40 minutes on the management of the patient (on the dayof the encounter) which included face to face and non-face to face work. The work included: preparing to see the patient, performing the exam and evaluation, documenting in the EHR, and Counseling and education pt/family/caregiver, Ordering meds, tests, procedures, Independent interpreting results and communicating results to pt/family/caregiver, and Care coordination. Signed: Jerry Moreno MD, 05/09/2025, 5:37 PM * Thais Shaw NP - 05/09/2025 8:23 AM CDT Thoracic Surgery Progress Note Admit Date: 04/24/2025 Hospital day: LOS: 15 days SUBJECTIVE: Lying in bed. Not in any distress. 05/03 - Chest tube with air leak. Will discuss with Dr. Trammell. 05/04 - Left pleural chest tube (pigtail) with air leak, (+) subcutaneous emphysema along left chest wall, patient reports tenderness on exam. Pigtail kinked - adjusted. Repeat CXR. 05/05 - LpCT (pigtail) remains w air leak, (+) subcutaneous emphysema and muted phonation. Tenderness to left side remains. EBV unable to be placed yesterday, patient not candidate. 05/06 - LpCT (pigtail) remains w air leak, (+) subcutaneous emphysema and muted phonation. Tenderness to left side remains. IR to exchange/upside LpCT today, will attempt blood patch once new CT is inplace. Wean oxygen off, goal SpO2 88-94%. 05/07-LpCT (pigtail) remains w air leak, (+) subcutaneous emphysema. Blood patch performed yesterday. 05/08: LpCT (pigtail) with continuous air leak, subQ emphysema. 05/09: LpCT (pigtail) with continuous air leak, subQ emphysema. Addendum: patient have more subQ air on the left shoulder and neck area, with a bit change of voice. Still on room air sat 95%. Pigtail in the same position. Suction placed to -30. OBJECTIVE: BP (!) 145/95 (BP Location: Left arm, Patient Position (BP): Supine) Pulse 79 Temp 98.7 ??F (37.1 ??C) (Temporal) Resp 19 Ht 5' 11 (1.803 m) Wt 71.5 kg (157 lb 10.1 oz) SpO2 95% BMI 21.98 kg/m?? Intake/Output Summary (Last 24 hours) at 05/09/2025 0823 Last data filed at 05/09/2025 0808 Gross per 24 hour Intake 300 ml Output 3163 ml Net -2863 ml Last documented weight: Weight: 71.5 kg (157 lb 10.1 oz) (05/09/25 0500) Weight: 75.6 kg (166 lb 10.7 oz) (04/24/25 1522) Physical Exam: General appearance: Reclined in bed, resting. Lungs: Normal effort. Heart: RR Abdomen: Soft, non-tender. Extremities: Moves all extremities, warm and well perfused. Skin: Bruising to left chest wall and left neck, (+) palpable subcutaneous air along left chest wall, back, neck. Data Reviewed: ASSESSMENT: Active Hospital Problems Diagnosis Moderate protein-calorie malnutrition Chronic kidney disease, stage IV (severe) (CMS/HCC) Acute respiratory failure with hypoxia (CMS/HCC) Secondary spontaneous pneumothorax Cigarette smoker Elevated serum creatinine Hyperkalemia Resolved Hospital Problems No resolved problems to display. PLAN: S/p Bedside talc pleurodesis 05/01. EBV attempted 05/04, patient not candidate for EBV due to persistent air leak. S/P Blood patch on 05/06. Maintain Oxygenation to 88% to 92%, LpCT (pigtail) with persistent air leak. -Keep chest tube to suction at all times. Will see what happens this weekend with air leak. If not resolved by Saturday, will need transfer to [place]. Suction setting changed to -30 Daily CXR Rest of care per primary team. CT Surgery will continue to follow. Thais Choteau, ACNP Cardiac and Thoracic Surgery 05/08/2025 1145 AM CDT Cosigned by Puma Atkins MD at 05/10/2025 6:27 AM CDT * Thais Shaw NP - 05/08/2025 11:46 AM CDT Thoracic Surgery Progress Note Admit Date: 04/24/2025 Hospital day: LOS: 14 days SUBJECTIVE: Sitting up in bed, Eating breakfast 05/03 - Chest tube with air leak. Will discuss with Dr. Trammell. 05/04 - Left pleural chest tube (pigtail) with air leak, (+) subcutaneous emphysema along left chest wall, patient reports tenderness on exam. Pigtail kinked - adjusted. Repeat CXR. 05/05 - LpCT (pigtail) remains w air leak, (+) subcutaneous emphysema and muted phonation. Tenderness to left side remains. EBV unable to be placed yesterday, patient not candidate. 05/06 - LpCT (pigtail) remains w air leak, (+) subcutaneous emphysema and muted phonation. Tenderness to left side remains. IR to exchange/upside LpCT today, will attempt blood patch once new CT is inplace. Wean oxygen off, goal SpO2 88-94%. 05/07-LpCT (pigtail) remains w air leak, (+) subcutaneous emphysema. Blood patch performed yesterday. 05/08: LpCT (pigtail) with continuous air leak, subQ emphysema. OBJECTIVE: BP (!) 149/88 Pulse (!) 109 Temp 98.4 ??F (36.9 ??C) (Temporal) Resp 18 Ht 5' 11 (1.803 m) Wt 71.9 kg (158 lb 8.2 oz) SpO2 (!) 89% BMI 22.11 kg/m?? Intake/Output Summary (Last 24 hours) at 05/08/2025 1146 Last data filed at 05/08/2025 1144 Gross per 24 hour Intake 550 ml Output 4060 ml Net -3510 ml Last documented weight: Weight: 71.9 kg (158 lb 8.2 oz) (05/08/25 0329) Weight: 75.6 kg (166 lb 10.7 oz) (04/24/25 1522) Physical Exam: General appearance: Reclined in bed, resting. Lungs: Normal effort. Heart: RR Abdomen: Soft, non-tender. Extremities: Moves all extremities, warm and well perfused. Skin: Bruising to left chest wall and left neck, (+) palpable subcutaneous air along left chest wall, back, neck. Data Reviewed: ASSESSMENT: Active Hospital Problems Diagnosis Moderate protein-calorie malnutrition Chronic kidney disease, stage IV (severe) (CMS/HCC) Acute respiratory failure with hypoxia (CMS/HCC) Secondary spontaneous pneumothorax Cigarette smoker Elevated serum creatinine Hyperkalemia Resolved Hospital Problems No resolved problems to display. PLAN: S/p Bedside talc pleurodesis 05/01. EBV attempted 05/04, patient not candidate for EBV due to persistent air leak. S/P Blood patch on 05/06. Maintain Oxygenation to 88% to 92%, LpCT (pigtail) with persistent air leak. -Keep chest tube to suction at all times. Will see what happens this with air leak. If not resolved by Saturday, will need transfer to [place]. Daily CXR Rest of care per primary team. CT Surgery will continue to follow. TERESA Walden Cardiac and Thoracic Surgery 05/08/2025 1145 AM CDT Cosigned by Puma Atkins MD at 05/10/2025 6:27 AM CDT * Jerry Moreno MD - 05/08/2025 10:45 AM CDT [facility] Hospitalist Daily Progress Note PATIENT: Froylan Yan AGE: 60 y.o. CSN: [id number] Date of : 1965 Admit Date: 04/24/2025 Hospital Day: LOS: 14 days Summary: Froylan Yan is a 60-year-old male with a significant history of cigarette smoking, hypertension, and chronic kidney disease who was admitted to [facility] on 04/24/2025 for evaluation and management of a secondary spontaneous pneumothorax after presenting to an outside emergency department with sudden onset of left-sided chest pain and shortness of breath. 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 During hospitalization, he experienced acute decompensation with recurrent large left pneumothorax and partial lung collapse after the initial chest tube became dislodged, necessitating transfer to the ICU and emergent repeat chest tube placement; this was confirmed by stat chest x-ray and managed with continuous wall suction and serial imaging. Pulmonology and cardiothoracic surgery were consulted for ongoing management of the persistent air leak and subcutaneous emphysema, and daily chest x-rays were obtained to monitor lung re-expansion and tube position. Despite chest tube management, he continued to have a persistent expiratory air leak and subcutaneous emphysema, and underwent bedsidetalc pleurodesis on 05/01/2025, which did not resolve the air leak. A subsequent attempt at endobronchial valve placement on 05/04/2025 was unsuccessful due to collateral ventilation, as determined by intra-procedural balloon occlusion testing during bronchoscopy. Throughout the admission, he required supplemental oxygen, initially up to 15 L, which was gradually weaned as tolerated; he remained on low-flow nasal cannula at the time of most recent documentation, with SpO2 maintained between 88-94%. He developed moderate protein-calorie malnutrition, as assessed by the nutrition team, and was started on oral nutrition supplements and a potassium-controlled diet. 05/05: Patient continues to have persistent air leak despite chest tube being place to suction. Willdiscuss with CTS. 05/06: Patient continues to have air leak. CTS planning on blood patch to see if this will resolve the air leak, otherwise patient will need to be potentially transferred to higher level of care. 05/07-: Patient had blood patch. Repeat chest X-ray ordered to evaluate pneumothorax. SUBJECTIVE: Froylan Yan is a 60 y.o. male who denies any new complaints or concerns. Review of Systems: Negative other than what is noted in subjective above. Vitals: Temp (24hrs), Av.4 ??F (36.9 ??C), Min:97.8 ??F (36.6 ??C), Max:99.2 ??F (37.3 ??C) Monitored Vitals Temp: 97.8 ??F (36.6 ??C) (05/08/25699) Temp src: Temporal (05/08/25699) Pulse: 77 (05/08/25 0329) Heart Rate: 94 bpm (05/07/25 1430) BP: (!) 153/90 (05/07/258) Mean Arterial Pressure: 106 MM HG (05/07/252317) Patient Position (BP): Supine (05/08/25328) Resp: 17 (05/07/25 1430) SpO2: 94 % (05/08/25328) Oxygen Therapy O2 Device: nasal cannula (05/08/25699) Oxygen Therapy Flow (L/min): 1 (05/08/25699) Oxygen Therapy O2 Device: nasal cannula (05/08/25699) FIO2%: 3 (05/03/25 0214) I/O: Intake/Output Summary (Last 24 hours) at 05/08/2025 1045 Last data filed at 05/08/2025 1034 Gross per 24 hour Intake 975 ml Output 3710 ml Net -2735 ml Diet:DIET GENERAL Effective Now OBJECTIVE: General Appearance: alert, mild distress. Head: atraumatic, Normocephalic, without obvious abnormality, Eyes: conjunctivae/corneas clear. PERRL, EOM's intact., Heart: regular rate and rhythm, S1, S2 normal, no murmur, click, rub or gallop. Lungs: clear to auscultation bilaterally, normal respiratory effort. Abdomen: Soft, non-tender. Bowel sounds normal. No masses, no organomegaly.. Extremities: extremities normal, atraumatic, no cyanosis or edema, intact distal pulses, moves all extremities equally, no edema, redness or tenderness in the calves or thighs, normal strength, normal tone. MEDICATIONS: Medications reviewed. LAB REVIEW: CBC: Recent Labs 05/06/25 0739 WBC 10.6 HGB 12.7* HCT 38.0* PLT 534* MCV 90.0 BMP: Recent Labs 05/06/25 0739 NA 141 K 4.3 CL 104 CO2 27 ANIONGAP 10 CA 9.1 GLUCOSE 126* BUN 27* CREAT 1.71* GFR 46* OTHER LYTES: Recent Labs 05/06/25 0739 MG 2.2 AccuCheks: No results for input(s): GLUCPOC in the last 72 hours. LFTs:No results for input(s): ALKPHOS , TOTALPROTEIN , BILITOTAL , ALBUMIN , ALT , AST in the last 72 hours. Coagulation: Recent Labs 05/06/25 0739 PT 13.5 INR 1.0 Cardiac markers: Lab Results Component Value Date BASETROP 20 (H) 04/24/2025 Lab Results Component Value Date 2HRTROP 22 (H) 04/24/2025 Lab Results Component Value Date 6HRTROP 28 (H) 04/25/2025 ASSESSMENT: Principal Problem: Secondary spontaneous pneumothorax Active Problems: Cigarette smoker Elevated serum creatinine Hyperkalemia Acute respiratory failure with hypoxia (CMS/HCC) Chronic kidney disease, stage IV (severe) (CMS/HCC) Moderate protein-calorie malnutrition PLAN: Pulmonary :Secondary Spontaneous Pneumothorax. 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 Interventional radiology was consulted for chest tube exchange/upsize and possible blood patch. He remains on supplemental oxygen, with SpO2 maintained between 88-94%. No significant improvement in air leak. Patent had blood patch to hopefully address persistent air leak. Will continue to monitor daily chest X-ray. Acute Respiratory Failure with Hypoxia. Secondary to the pneumothorax and air leak with gradual weaning as tolerated. Fluids/Lytes:Hyperkalemia. Attributed to CKD and prior lisinopril use. Resolved. Continue to monitor electrolyte levels. Moderate Protein-Calorie Malnutrition. Nutrition interventions included oral supplements and monitoring, with ongoing malnutrition pathway and serial assessments. Probably secondary to patient's underlying history of tobacco use with probable development of COPD with acute illness and current hospit alization. Patient's malnutrition will have a significant impact on the patient's short term recovery and retirement prognosis. Renal:Chronic Kidney Disease. Renal function currently trending steady. Patient will need ongoing monitoring with nephrology in the clinic. Medical Decision Making: I spent a total of 40 minutes on the management of the patient (on the dayof the encounter) which included face to face and non-face to face work. The work included: preparing to see the patient, performing the exam and evaluation, documenting in the EHR, and Counseling and education pt/family/caregiver, Ordering meds, tests, procedures, Independent interpreting results and communicating results to pt/family/caregiver, and Care coordination. Signed: Jerry Moerno MD, 05/08/2025, 10:45 AM * Kenneth Mosley - 05/07/2025 2:45 PM CDT Reason for Visit: Referral Patient spiritual issues identified summary of patient???s most significant issue(s): Froylan is receiving care for a collapsed lung. Family - no family present Adrianne/values: unknown Needs/hopes resources: looks forward to discharge from the hospital, possibly soon. Spiritual interventions Utilized presence and active listening to explore feelings, stressors, perceptions, questions/concerns, and coping patterns of Froylan. 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 He also mentioned a fall at his home on the day prior to being admitted to a local hospital in his hometown. Outcomes of Care Welcomed time for conversation and concern. Cad Engineer Plan Spiritual Care Services remain available for referral PRN. Recommendations for Healthcare Team As spiritual needs/distress arise, please contact Spiritual Care Services. We will follow up as needed. Thank you for this referral. Cad Engineer Kenneth Mosley Spiritual Care Team [phone] * Antony Galan PA-C - 05/07/2025 8:04 AM CDT Thoracic Surgery Progress Note Admit Date: 04/24/2025 Hospital day: LOS: 13 days SUBJECTIVE: Sitting up in bed, states he feels fine this morning. 05/03 - Chest tube with air leak. Will discuss with Dr. Trammell. 05/04 - Left pleural chest tube (pigtail) with air leak, (+) subcutaneous emphysema along left chest wall, patient reports tenderness on exam. Pigtail kinked - adjusted. Repeat CXR. 05/05 - LpCT (pigtail) remains w air leak, (+) subcutaneous emphysema and muted phonation. Tenderness to left side remains. EBV unable to be placed yesterday, patient not candidate. 05/06 - LpCT (pigtail) remains w air leak, (+) subcutaneous emphysema and muted phonation. Tenderness to left side remains. IR to exchange/upside LpCT today, will attempt blood patch once new CT is inplace. Wean oxygen off, goal SpO2 88-94%. 05/07-LpCT (pigtail) remains w air leak, (+) subcutaneous emphysema. Blood patch performed yesterday. OBJECTIVE: BP (!) 142/97 (BP Location: Right arm, Patient Position (BP): Supine) Pulse 85 Temp 98.8 ??F (37.1 ??C) (Temporal) Resp 18 Ht 5' 11 (1.803 m) Wt 68 kg (149 lb 14.6 oz) SpO2 93% BMI 20.91 kg/m?? Intake/Output Summary (Last 24 hours) at 05/07/2025 0804 Last data filed at 05/07/2025 0705 Gross per 24 hour Intake 580 ml Output 1922 ml Net -1342 ml Last documented weight: Weight: 68 kg (149 lb 14.6 oz) (05/07/25 0400) Weight: 75.6 kg (166 lb 10.7 oz) (04/24/25 1522) Physical Exam: General appearance: Reclined in bed, resting. Lungs: Normal effort. Heart: RR Abdomen: Soft, non-tender. Extremities: Moves all extremities, warm and well perfused. Skin: Bruising to left chest wall and left neck, (+) palpable subcutaneous air along left chest wall, back, neck. Data Reviewed: ASSESSMENT: Active Hospital Problems Diagnosis Moderate protein-calorie malnutrition Chronic kidney disease, stage IV (severe) (CMS/HCC) Acute respiratory failure with hypoxia (CMS/HCC) Secondary spontaneous pneumothorax Cigarette smoker Elevated serum creatinine Hyperkalemia Resolved Hospital Problems No resolved problems to display. PLAN: S/p Bedside talc pleurodesis 05/01. EBV attempted 05/04, patient not candidate for EBV due to persistent air leak. S/P Blood patch on 05/06. Maintain Oxygenation to 88% to 92%, LpCT (pigtail) with persistent air leak. -Keep chest tube to suction at all times. Will see what happens this with air leak. If not resolved by Saturday, will need transfer to [place]. Daily CXR Rest of care per primary team. CT Surgery will continue to follow. Antony Galan PA-C Cardiac and Thoracic Surgery 05/04/2025 0852 Cosigned by Puma Atkins MD at 05/10/2025 6:27 AM CDT * Jerry Moreno MD - 05/06/2025 7:01 PM CDT [facility] Hospitalist Daily Progress Note PATIENT: Froylan Yan AGE: 60 y.o. CSN: [id number] Date of : 1965 Admit Date: 04/24/2025 Hospital Day: LOS: 12 days Summary: Froylan Yan is a 60-year-old male with a significant history of cigarette smoking, hypertension, and chronic kidney disease who was admitted to [facility] on 04/24/2025 for evaluation and management of a secondary spontaneous pneumothorax after presenting to an outside emergency department with sudden onset of left-sided chest pain and shortness of breath. 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 During hospitalization, he experienced acute decompensation with recurrent large left pneumothorax and partial lung collapse after the initial chest tube became dislodged, necessitating transfer to the ICU and emergent repeat chest tube placement; this was confirmed by stat chest x-ray and managed with continuous wall suction and serial imaging. Pulmonology and cardiothoracic surgery were consulted for ongoing management of the persistent air leak and subcutaneous emphysema, and daily chest x-rays were obtained to monitor lung re-expansion and tube position. Despite chest tube management, he continued to have a persistent expiratory air leak and subcutaneous emphysema, and underwent bedsidetalc pleurodesis on 05/01/2025, which did not resolve the air leak. A subsequent attempt at endobronchial valve placement on 05/04/2025 was unsuccessful due to collateral ventilation, as determined by intra-procedural balloon occlusion testing during bronchoscopy. Throughout the admission, he required supplemental oxygen, initially up to 15 L, which was gradually weaned as tolerated; he remained on low-flow nasal cannula at the time of most recent documentation, with SpO2 maintained between 88-94%. He developed moderate protein-calorie malnutrition, as assessed by the nutrition team, and was started on oral nutrition supplements and a potassium-controlled diet. 05/05: Patient continues to have persistent air leak despite chest tube being place to suction. Willdiscuss with CTS. 05/06: Patient continues to have air leak. CTS planning on blood patch to see if this will resolve the air leak, otherwise patient will need to be potentially transferred to higher level of care. SUBJECTIVE: Froylan Yan is a 60 y.o. male who denies any new complaints or concerns. Review of Systems: Negative other than what is noted in subjective above. Vitals: Temp (24hrs), Av ??F (36.7 ??C), Min:97.6 ??F (36.4 ??C), Max:98.7 ??F (37.1 ??C) Monitored Vitals Temp: 98.7 ??F (37.1 ??C) (05/06/25 1525) Temp src: Temporal (05/06/25 1525) Pulse: 72 (05/06/25 1525) Heart Rate: 71 bpm (05/06/25 1525) BP: (!) 152/100 (05/06/25 1525) Mean Arterial Pressure: (!) 112 MM HG (05/06/25 152) Patient Position (BP): Supine (05/06/25344) Resp: 12 (05/06/251524) SpO2: 94 % (05/06/251524) Oxygen Therapy O2 Device: room air (05/06/25 1043) Oxygen Therapy Flow (L/min): 1 (05/06/25344) Oxygen Therapy O2 Device: room air (05/06/25 1043) FIO2%: 3 (05/03/25 0214) I/O: Intake/Output Summary (Last 24 hours) at 05/06/2025 1901 Last data filed at 05/06/2025 1815 Gross per 24 hour Intake 480 ml Output 3652 ml Net -3172 ml Diet:DIET GENERAL Effective Now OBJECTIVE: General Appearance: alert, mild distress. Head: atraumatic, Normocephalic, without obvious abnormality, Eyes: conjunctivae/corneas clear. PERRL, EOM's intact., Heart: regular rate and rhythm, S1, S2 normal, no murmur, click, rub or gallop. Lungs: clear to auscultation bilaterally, normal respiratory effort. Abdomen: Soft, non-tender. Bowel sounds normal. No masses, no organomegaly.. Extremities: extremities normal, atraumatic, no cyanosis or edema, intact distal pulses, moves all extremities equally, no edema, redness or tenderness in the calves or thighs, normal strength, normal tone. MEDICATIONS: Medications reviewed. LAB REVIEW: CBC: Recent Labs 05/05/25 0449 05/06/25 0739 WBC 12.7* 10.6 HGB 12.3* 12.7* HCT 36.1* 38.0* PLT 473* 534* MCV 89.1 90.0 BMP: Recent Labs 05/05/25 0449 05/06/25 0739 NA 137 141 K 4.5 4.3 CL 101 104 CO2 26 27 ANIONGAP 10 10 CA 9.3 9.1 GLUCOSE 111* 126* BUN 31* 27* CREAT 1.70* 1.71* GFR 46* 46* OTHER LYTES: Recent Labs 05/06/25 0739 MG 2.2 AccuCheks: No results for input(s): GLUCPOC in the last 72 hours. LFTs:No results for input(s): ALKPHOS , TOTALPROTEIN , BILITOTAL , ALBUMIN , ALT , AST in the last 72 hours. Coagulation: Recent Labs 05/06/25 0739 PT 13.5 INR 1.0 Cardiac markers: Lab Results Component Value Date BASETROP 20 (H) 04/24/2025 Lab Results Component Value Date 2HRTROP 22 (H) 04/24/2025 Lab Results Component Value Date 6HRTROP 28 (H) 04/25/2025 ASSESSMENT: Principal Problem: Secondary spontaneous pneumothorax Active Problems: Cigarette smoker Elevated serum creatinine Hyperkalemia Acute respiratory failure with hypoxia (CMS/HCC) Chronic kidney disease, stage IV (severe) (CMS/HCC) Moderate protein-calorie malnutrition PLAN: Pulmonary :Secondary Spontaneous Pneumothorax. 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 Interventional radiology was consulted for chest tube exchange/upsize and possible blood patch. He remains on supplemental oxygen, with SpO2 maintained between 88-94%. No significant improvement in air leak. CTS planning blood patch to hopefully address persistent air leak, if this is not successful, patient may need to be transferred to higher level of care. Acute Respiratory Failure with Hypoxia. Secondary to the pneumothorax and air leak with gradual weaning as tolerated. Fluids/Lytes:Hyperkalemia. Attributed to CKD and prior lisinopril use. Resolved. Continue to monitor electrolyte levels. Moderate Protein-Calorie Malnutrition. Nutrition interventions included oral supplements and monitoring, with ongoing malnutrition pathway and serial assessments. Probably secondary to patient's underlying history of tobacco use with probable development of COPD with acute illness and current hospit alization. Patient's malnutrition will have a significant impact on the patient's short term recovery and retirement prognosis. Renal:Chronic Kidney Disease. Renal function currently trending steady. Patient will need ongoing monitoring with nephrology in the clinic. Medical Decision Making: I spent a total of 40 minutes on the management of the patient (on the dayof the encounter) which included face to face and non-face to face work. The work included: preparing to see the patient, performing the exam and evaluation, documenting in the EHR, and Counseling and education pt/family/caregiver, Ordering meds, tests, procedures, Independent interpreting results and communicating results to pt/family/caregiver, and Care coordination. Signed: Jerry Moreno MD, 05/06/2025, 7:01 PM * Zabrina Bynum PA-C - 05/06/2025 8:27 AM CDT Thoracic Surgery Progress Note Admit Date: 04/24/2025 Hospital day: LOS: 12 days SUBJECTIVE: Sitting up in bed, states he feels fine this morning. 05/03 - Chest tube with air leak. Will discuss with Dr. Trammell. 05/04 - Left pleural chest tube (pigtail) with air leak, (+) subcutaneous emphysema along left chest wall, patient reports tenderness on exam. Pigtail kinked - adjusted. Repeat CXR. 05/05 - LpCT (pigtail) remains w air leak, (+) subcutaneous emphysema and muted phonation. Tenderness to left side remains. EBV unable to be placed yesterday, patient not candidate. 05/06 - LpCT (pigtail) remains w air leak, (+) subcutaneous emphysema and muted phonation. Tenderness to left side remains. IR to exchange/upside LpCT today, will attempt blood patch once new CT is inplace. Wean oxygen off, goal SpO2 88-94%. OBJECTIVE: BP (!) 176/87 Pulse 82 Temp 98.2 ??F (36.8 ??C) (Temporal) Resp 17 Ht 5' 11 (1.803 m) Wt72.4 kg (159 lb 9.8 oz) SpO2 95% BMI 22.26 kg/m?? Intake/Output Summary (Last 24 hours) at 05/06/2025 0827 Last data filed at 05/06/2025 0700 Gross per 24 hour Intake 600 ml Output 4351 ml Net -3751 ml Last documented weight: Weight: 72.4 kg (159 lb 9.8 oz) (05/06/25 0345) Weight: 75.6 kg (166 lb 10.7 oz) (04/24/25 1522) Physical Exam: General appearance: Reclined in bed, resting. Lungs: Respirations unlabored, lungs clear, LpCT with persistent grade IV airleak. Heart: S1/S2 audible, regular rate, regular rhythm, no clicks, rubs, murmurs or gallops. Abdomen: Soft, non-tender to palpation, non-distended, admits to having bowel movement. Extremities: Moves all extremities, warm and well perfused. Skin: Bruising to left chest wall and left neck, (+) palpable subcutaneous air along left chest wall, back, neck. Data Reviewed: ASSESSMENT: Active Hospital Problems Diagnosis Moderate protein-calorie malnutrition Chronic kidney disease, stage IV (severe) (CMS/HCC) Acute respiratory failure with hypoxia (CMS/HCC) Secondary spontaneous pneumothorax Cigarette smoker Elevated serum creatinine Hyperkalemia Resolved Hospital Problems No resolved problems to display. PLAN: S/p Bedside talc pleurodesis 05/01. Maintain Oxygenation to 88% to 92%, on supplemental nasal cannula at 1L LpCT (pigtail) with persistent grade IV airleak. IR to exchange/upsize LpCT today. Will attempt blood patch once new tube is in place. Daily CXR EBV attempted 05/04, patient not candidate for EBV due to persistent air leak. Rest of care per primary team. CT Surgery will continue to follow, case reviewed with Dr. Atkins on AM rounds. [facility]ynum [facility], MPAS, ZAINAB SU Cardiac and Thoracic Surgery 05/04/2025 0852 Cosigned by Puma Atkins MD at 05/06/2025 8:39 AM CDT * Jerry Moreno MD - 05/05/2025 10:23 AM CDT [facility] Hospitalist Daily Progress Note PATIENT: Froylan Yan AGE: 60 y.o. CSN: [id number] Date of : 1965 Admit Date: 04/24/2025 Hospital Day: LOS: 11 days Summary: Froylan Yan is a 60-year-old male with a significant history of cigarette smoking, hypertension, and chronic kidney disease who was admitted to [facility] on 04/24/2025 for evaluation and management of a secondary spontaneous pneumothorax after presenting to an outside emergency department with sudden onset of left-sided chest pain and shortness of breath. 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 During hospitalization, he experienced acute decompensation with recurrent large left pneumothorax and partial lung collapse after the initial chest tube became dislodged, necessitating transfer to the ICU and emergent repeat chest tube placement; this was confirmed by stat chest x-ray and managed with continuous wall suction and serial imaging. Pulmonology and cardiothoracic surgery were consulted for ongoing management of the persistent air leak and subcutaneous emphysema, and daily chest x-rays were obtained to monitor lung re-expansion and tube position. Despite chest tube management, he continued to have a persistent expiratory air leak and subcutaneous emphysema, and underwent bedsidetalc pleurodesis on 05/01/2025, which did not resolve the air leak. A subsequent attempt at endobronchial valve placement on 05/04/2025 was unsuccessful due to collateral ventilation, as determined by intra-procedural balloon occlusion testing during bronchoscopy. Throughout the admission, he required supplemental oxygen, initially up to 15 L, which was gradually weaned as tolerated; he remained on low-flow nasal cannula at the time of most recent documentation, with SpO2 maintained between 88-94%. He developed moderate protein-calorie malnutrition, as assessed by the nutrition team, and was started on oral nutrition supplements and a potassium-controlled diet. 05/05: Patient continues to have persistent air leak despite chest tube being place to suction. Willdiscuss with CTS. SUBJECTIVE: Froylan Yan is a 60 y.o. male who denies any new complaints or concerns. Review of Systems: Negative other than what is noted in subjective above. Vitals: Temp (24hrs), Av.1 ??F (36.7 ??C), Min:97.6 ??F (36.4 ??C), Max:98.5 ??F (36.9 ??C) Monitored Vitals Temp: 98.1 ??F (36.7 ??C) (05/05/25719) Temp src: Temporal (05/05/25 0339) Pulse: 95 (05/05/25719) Heart Rate: 97 bpm (05/05/25719) BP: (!) 142/86 (05/05/25930) Mean Arterial Pressure: (!) 111 MM HG (05/05/25719) Patient Position (BP): Sitting (05/04/25 1530) Resp: 15 (05/05/25719) SpO2: 90 % (05/05/25719) Oxygen Therapy O2 Device: nasal cannula (05/05/25714) Oxygen Therapy Flow (L/min): 1 (05/05/25714) Oxygen Therapy O2 Device: nasal cannula (05/05/25714) FIO2%: 3 (05/03/25213) I/O: Intake/Output Summary (Last 24 hours) at 05/05/2025 1023 Last data filed at 05/05/2025 1000 Gross per 24 hour Intake 760 ml Output 2450 ml Net -1690 ml Diet:DIET POTASSIUM CONTROL OBJECTIVE: General Appearance: alert, mild distress. Head: atraumatic, Normocephalic, without obvious abnormality, Eyes: conjunctivae/corneas clear. PERRL, EOM's intact., Heart: regular rate and rhythm, S1, S2 normal, no murmur, click, rub or gallop. Lungs: clear to auscultation bilaterally, normal respiratory effort. Abdomen: Soft, non-tender. Bowel sounds normal. No masses, no organomegaly.. Extremities: extremities normal, atraumatic, no cyanosis or edema, intact distal pulses, moves all extremities equally, no edema, redness or tenderness in the calves or thighs, normal strength, normal tone. MEDICATIONS: Medications reviewed. LAB REVIEW: CBC: Recent Labs 05/05/25448 WBC 12.7* HGB 12.3* HCT 36.1* PLT 473* MCV 89.1 BMP: Recent Labs 05/05/25448 NA 137 K 4.5 CL 101 CO2 26 ANIONGAP 10 CA 9.3 GLUCOSE 111* BUN 31* CREAT 1.70* GFR 46* OTHER LYTES:No results for input(s): MG , PO4 in the last 72 hours. AccuCheks: No results for input(s): GLUCPOC in the last 72 hours. LFTs:No results for input(s): ALKPHOS , TOTALPROTEIN , BILITOTAL , ALBUMIN , ALT , AST in the last 72 hours. Coagulation: No results for input(s): PT , INR , APTT in the last 72 hours. Cardiac markers: Lab Results Component Value Date BASETROP 20 (H) 04/24/2025 Lab Results Component Value Date 2HRTROP 22 (H) 04/24/2025 Lab Results Component Value Date 6HRTROP 28 (H) 04/25/2025 ASSESSMENT: Principal Problem: Secondary spontaneous pneumothorax Active Problems: Cigarette smoker Elevated serum creatinine Hyperkalemia Acute respiratory failure with hypoxia (CMS/HCC) Chronic kidney disease, stage IV (severe) (CMS/HCC) Moderate protein-calorie malnutrition PLAN: Pulmonary :Secondary Spontaneous Pneumothorax. 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 Serial imaging demonstrated persistent loculated left basilar pneumothorax and extensive subcutaneous emphysema, with improvement in lung expansion but ongoing air leak. Talc pleurodesis was performed on hospital day 8, but the air leak persisted. Endobronchial valve placement was attempted but not performed due to collateral ventilation and lack of response to balloon occlusion during bronchoscopy. Interventional radiology was consulted for chest tube exchange/upsize and possible blood patch. He remains on supplemental oxygen, with SpO2 maintained between 88-94%. No significant improvement in air leak. Awaiting recommendations from CTS. Acute Respiratory Failure with Hypoxia. Secondary to the pneumothorax and air leak with gradual weaning as tolerated. Fluids/Lytes:Hyperkalemia. Attributed to CKD and prior lisinopril use. Resolved. Continue to monitor electrolyte levels. Moderate Protein-Calorie Malnutrition. Nutrition interventions included oral supplements and monitoring, with ongoing malnutrition pathway and serial assessments. Probably secondary to patient's underlying history of tobacco use with probable development of COPD with acute illness and current hospit alization. Patient's malnutrition will have a significant impact on the patient's short term recovery and retirement prognosis. Renal:Chronic Kidney Disease. Renal function currently trending steady. Patient will need ongoing monitoring with nephrology in the clinic. Medical Decision Making: I spent a total of 40 minutes on the management of the patient (on the dayof the encounter) which included face to face and non-face to face work. The work included: preparing to see the patient, performing the exam and evaluation, documenting in the EHR, and Counseling and education pt/family/caregiver, Ordering meds, tests, procedures, Independent interpreting results and communicating results to pt/family/caregiver, and Care coordination. Signed: Jerry Moreno MD, 05/05/2025, 10:23 AM * Zabrina Bynum PA-C - 05/05/2025 8:34 AM CDT Thoracic Surgery Progress Note Admit Date: 04/24/2025 Hospital day: LOS: 11 days SUBJECTIVE: Sitting up in bed, states he feels fine this morning. 05/03 - Chest tube with air leak. Will discuss with Dr. Trammell. 05/04 - Left pleural chest tube (pigtail) with air leak, (+) subcutaneous emphysema along left chest wall, patient reports tenderness on exam. Pigtail kinked - adjusted. Repeat CXR. 05/05 - LpCT (pigtail) remains w air leak, (+) subcutaneous emphysema and muted phonation. Tenderness to left side remains. EBV unable to be placed yesterday, patient not candidate. OBJECTIVE: BP (!) 165/101 Pulse 95 Temp 98.1 ??F (36.7 ??C) Resp 15 Ht 5' 11 (1.803 m) Wt 69.1 kg (152 lb 5.4 oz) SpO2 90% BMI 21.25 kg/m?? Intake/Output Summary (Last 24 hours) at 05/05/2025 0834 Last data filed at 05/05/2025 0500 Gross per 24 hour Intake 400 ml Output 1420 ml Net -1020 ml Last documented weight: Weight: 69.1 kg (152 lb 5.4 oz) (05/05/25 0339) Weight: 75.6 kg (166 lb 10.7 oz) (04/24/25 1522) Physical Exam: General appearance: Sitting to side of bed eating breakfast. Lungs: Respirations unlabored, lungs clear, LpCT with persistent grade IV airleak. Heart: S1/S2 audible, regular rate, regular rhythm, no clicks, rubs, murmurs or gallops. Abdomen: Soft, non-tender to palpation, non-distended, normoactive bowel sounds x 4 quadrants, reports passing flatus. Extremities: Moves all extremities, warm and well perfused. Skin: Bruising to left chest wall and left neck, (+) palpable subcutaneous air along left chest wall, back, neck. Data Reviewed: ASSESSMENT: Active Hospital Problems Diagnosis Moderate protein-calorie malnutrition Chronic kidney disease, stage IV (severe) (CMS/HCC) Acute respiratory failure with hypoxia (CMS/HCC) Secondary spontaneous pneumothorax Cigarette smoker Elevated serum creatinine Hyperkalemia Resolved Hospital Problems No resolved problems to display. PLAN: S/p Bedside talc pleurodesis 05/01. Maintain Oxygenation to 88% to 92%, on supplemental nasal cannula at 1L LpCT (pigtail) with persistent grade IV airleak. Daily CXR EBV attempted yesterday, patient not candidate for EBV due to persistent air leak. Rest of care per primary team. CT Surgery will continue to follow, case reviewed with Dr. Agosto on AM rounds. Sunshine Dos Santos, AYUSH, ZAINAB SU Cardiac and Thoracic Surgery 05/04/2025 0852 Cosigned by August Agosto DO at 05/05/2025 9:11 AM CDT * Brayden Trammell MD - 05/04/2025 12:15 PM CDT After discussing procedure risks and benefits in detail with patient including evaluation of the airleak and placement of spy ration endobronchial valves patient provided the consent. I informed him of the IRB approval process and we have received IRB approval. I reiterated the educational information that we discussed yesterday. Consent obtained separately for the procedure and for the spirationendobronchial valve placement procedure and the HUD device consent. * Shania Posadas MD - 05/04/2025 11:55 AM CDT Images from the original note were not included. Your life is our life's work [facility] Hospitalist/Hospital Medicine Progress Note LOS: 10 days Room/Bed: ENDO/ENDO Patient name: Froylan Yan Date of : 1965 HOSPITAL COURSE SUMMARY: Froylan Yan is a 60-year-old male with a significant history of cigarette smoking, hypertension, CKD who was admitted to [facility] for evaluation and management of spontaneous pneumothorax on 04/24/25. The patient initially presented to an outside emergency department with sudden onset of left-sided chest pain and shortness of breath, where imaging revealed a large left pneumothorax; a pigtail catheter was placed, and the patient was transferred to [facility] for higher-level care, and admitted under hospital medicine. On arrival, Repeat chest xray confirmed improvement in the pneumothorax following chest tube placement. Labs revealed elevated creatinine secondary to CKD with hyperkalemia. Pulmonology was consulted for management and ongoing air leak which was suspected to be due to a small bronchopleural fistula, likely secondary to underlying severe emphysema. This evening 04/25/2025 a rapid response was called for chest pain with increased work of breathing accompanied by increased heart rate and hypertension. A stat x-ray was obtained revealing retracted left pleural pigtail catheter terminating over the left lateral chest wall with increased large leftpneumothorax, partially collapsed left lung. The patient was transferred to ICU for chest tube placement. Current Care Plan Summary 60-year-old male with no known medical history other than smoking admitted from outside facility on04/24/2025 for further management of spontaneous left-sided pneumothorax, pigtail placed at outside facility, admitted under hospital medicine. Today 04/25/2025 a rapid response was called for increasing shortness of breath, chest pain, hypertension, tachycardia, x-ray revealed retracted left pleuralpigtail, large left pneumothorax and partially collapsed left lung. Patient transferred to the ICU for chest tube placement. Chest tube placement per attending, follow-up x-ray pending, repeat x-ray in AM. Pulmonology following. Wean supplemental oxygen as tolerated Elevated creatinine with mild hyperkalemia secondary to CKD ; per patient he has been seen by nephrology prior. 04/26-04/27: Took over patient care today. Patient was initiated on 15 L-> weaned down to 6 L of O2 NC. Post chest tube placement , x-ray showed significant improvement in lung expansion though a small expiratory air leak persisted and subcutaneous emphysema was present but improving Close monitoring of the chest tube and daily chest x-rays ordered daily. Pulmonology still on board Hyperkalemia resolved. Nephrology on board 04/28: Assumed care of patient. Currently on 2 L nasal cannula chest tube in place being managed by pulmonology. Potassium normal today at 4.5 nephrology following 04/29: continue chest tube. 04/30: CTS consulted by Pulm appreciate recs 05/01: CTS with plans for talc pleurodesis today. CT clamped 05/02: completed talc pleurodesis yesterday plans for possible EBV 05/03: doing well awaiting valve. 05/04: going for EBV today. Consultants: IP CONSULT TO PULMONOLOGY IP CONSULT TO NEPHROLOGY SUBJECTIVE: Patient resting in bed no distress. ROS: History obtained from the patient Constitutional: negative for fever, chills, negative for confusion, fatigue Pulmonary: negative for dyspnea, no cough Cardiovascular: negative for chest pain, no palpitations, no orthopnea GI: negative for nausea, vomiting, diarrhea and constipation, no abdominal pain Renal: no dysuria, no hematuria Musculoskeletal: no back pain, no joint pain, no calf swelling Neuro: negative for headache, no vision changes, no dizziness Skin: no skin rash, no redness OBJECTIVE: Temp (24hrs), Av.7 ??F (36.5 ??C), Min:97 ??F (36.1 ??C), Max:98.8 ??F (37.1 ??C) BP (!) 155/90 (BP Location: Right arm) Pulse 91 Temp 98.8 ??F (37.1 ??C) (Temporal) Resp 11 Ht 5' 11 (1.803 m) Wt 77.1 kg (169 lb 15.6 oz) SpO2 92% BMI 23.71 kg/m?? Intake/Output Summary (Last 24 hours) at 05/04/2025 1155 Last data filed at 05/04/2025 1100 Gross per 24 hour Intake 440 ml Output 2645 ml Net -2205 ml Last documented weight: Weight: 77.1 kg (169 lb 15.6 oz) (05/03/25 0500) EXAM: General: alert, in no distress Neurologic: Grossly normal HEENT: atraumatic, Normocephalic, without obvious abnormality Lungs: normal respiratory effort, chest tube left Heart: normal rate and regular rhythm Abdomen: Soft, non-tender. Bowel sounds normal. No masses, no organomegaly. Extremities: extremities normal, atraumatic, no cyanosis or edema Skin: negative LABORATORY: No results for input(s): WBC , HGB , HCT , PLT in the last 72 hours. No results for input(s): NA , K , CL , CO2 , CA , BUN , CREAT , GLUCOSE in the last 72 hours. No results for input(s): TOTALPROTEIN , ALBUMIN , BILITOTAL , ALKPHOS , AST , ALT in the last 72 hours. No results for input(s): INR , PT in the last 72 hours. Invalid input(s): PTT No results for input(s): BASETROP , 2HRTROP , DELTA , 6HRTROP in the last 72 hours. Diagnostic testing reviewed by me: Medications were reviewed by me. Current Facility-Administered Medications: sterile talc intrapleural (STERITALC) 4 gram suspension, , Intrapleural, intra- proc ONE time, Choteau, Thais C, AEROPHYSICS ENGINEER lidocaine 1 % (XYLOCAINE) injection 300 mg, 30 mL, Infiltration, ONE time only, Colin, Thais C, AEROPHYSICS ENGINEER sodium bicarbonate tablet 650 mg, 650 mg, Oral, BID, Liset William DO, 650 mg at 05/03/252027 hydrALAZINE (APRESOLINE) 20 mg/mL injection 10 mg, 10 mg, IV, every 6 hours PRN, Nimisha Nicole APRN-BC labetaloL (NORMODYNE;TRANDATE) 5 mg/mL injection 10 mg, 10 mg, IV, every 4 hours PRN, Nimisha Nicole APRN-BC, 10 mg at 04/25/25 0133 umeclidinium (INCRUSE ELLIPTA) 62.5 mcg/actuation inhaler 1 Puff, 1 Puff, Inhalation, resp, daily, Nimisha Nicole APRN-BC, 1 Puff at 05/04/25 0825 dextrose 5 % bolus solution 120 mL, 120 mL, IV, ONE time only, Nimisha Nicole APRN-BC HYDROcodone-acetaminophen (NORCO) 5-325 mg per tablet 1 Tablet, 1 Tablet, Oral, every 4 hours PRN, Nimisha Nicole APRN-BC, 1 Tablet at 05/03/25 1326 HYDROmorphone (PF) (DILAUDID) injection 0.5 mg, 0.5 mg, IV, every 3 hours PRN, Nimisha Nicole APRN-BC, 0.5 mg at 05/03/25 0834 naloxone (NARCAN) 0.4 mg/mL injection 0.1-0.4 mg, 0.1-0.4 mg, IV, see admin instructions, Nimisha Nicole APRN-BC sodium chloride flush injection 10 mL, 10 mL, IV, every 12 hours (2 times daily), Nimisha Nicole APRN-BC, 10 mL at 05/03/25 2030 sodium chloride flush injection 10 mL, 10 mL, IV, see admin instructions, Nimisha Nicole APRN-RICA sodium chloride 0.9 % flush bag 25 mL, 25 mL, IV, see admin instructions, Nimisha Nicole APRN-BC dextrose 5 % in water 250 mL flush bag 25 mL, 25 mL, IV, see admin instructions, Nimisha Nicole APRN-RICA acetaminophen (TYLENOL) tablet 650 mg, 650 mg, Oral, every 6 hours PRN, Nimisha Nicole APRN-BC ondansetron (ZOFRAN ODT) tablet 4 mg, 4 mg, Oral, every 6 hours PRN, Nimisha Nicole APRN-BC,4 mg at 04/25/25 0731 nicotine (NICODERM CQ) 7 mg/24 hr transdermal patch 1 Patch, 1 Patch, Transdermal, daily, Nimisha Nicole APRN-BC, 1 Patch at 05/04/25 0826 albuterol sulfate 90 mcg/Actuation inhaler 2 Puff, 2 Puff, Inhalation, resp, every 6 hours PRN, Nimisha Nicole APRN-BC ipratropium-albuteroL (DUONEB) 0.5 mg-3 mg(2.5 mg base)/3 mL inhalation solution 3 mL, 3 mL, Inhalation, resp, every 4 hours PRN, Nimisha Nicole APRN-BC [Held by Provider] heparin injection 5,000 Units, 5,000 Units, subCUT, every 8 hours, Nimisha Nicole APRN-BC, 5,000 Units at 05/03/25 0444 Primary discharge diagnosis: Secondary spontaneous pneumothorax Other active medical issues also addressed during this admission: Active Hospital Problems Diagnosis Moderate protein-calorie malnutrition Chronic kidney disease, stage IV (severe) (CMS/HCC) Acute respiratory failure with hypoxia (CMS/HCC) Secondary spontaneous pneumothorax Cigarette smoker Elevated serum creatinine Hyperkalemia Resolved Hospital Problems No resolved problems to display. ASSESSMENT AND PLAN: Acute hypoxic respiratory failure secondary to spontaneous pneumothorax secondary to BP fistula Pulmonology following and managing chest tube appreciate recommendations CTS consulted completed talc pleurodesis 05/01, plans for EBV today Daily chest x-rays O2 supplementation 88%-92%, wean as tolerated not on oxygen at home Hyperkalemia, resolved CKD stage IIIb Stable continue to monitor Nephrology following appreciate recs Nutrition Status: Malnutrition Nutrition Diagnosis: Moderate protein-calorie malnutrition Provider Assessment/Plan: Symptoms/Signs/Physical Exam: Weight Loss Etiology: Acute illness Nutrition Treatment Plan: Malnutrition Commentary: Underlying malnutrition impairing the body's response to above medical conditions and is associated with prolonged length of stay and increased riskof readmission and mortality. Leasing Director consulted for ASPEN assessment and intervention plan per malnutrition pathway. Continue malnutrition pathway, supplemental feeds, serial assessments, closely monitor for refeeding syndrome, metabolic derangements, hypoglycemia, etc. No indication for appetite stimulants at thistime - Current Diet and/or Nutritional Supplementation ordered: DIET NPO Strict - Daily weights Impact of Malnutrition on patient condition and outcomes: Delayed recovery and Poor wound healing DVT prophylaxis: DVT Pharmacologic Prophylaxis: Current Pharmacologic DVT prophylaxis on HOLD - heparin injection 5,000 Units [[id number]] Code status: Full Code Outpatient follow up: PCP pulmonology Anticipated Disposition Location: LTAC vs home Timeframe: Criteria: Improved Patient's understanding of illness: Good Primary family contact: MDM complexity: [] Mild [x] Moderate [] High Shania Posadas MD 05/04/2025, 11:55 AM * Zabrina BynumZAINAB herrera - 05/04/2025 8:46 AM CDT Images from the original note were not included. Thoracic Surgery Progress Note Admit Date: 04/24/2025 Hospital day: LOS: 10 days SUBJECTIVE: Sitting up in bed, states he feels fine this morning. 05/03-Chest tube with air leak. Will discuss with Dr. Trammell. 05/04-Left pleural chest tube (pigtail) with air leak, (+) subcutaneous emphysema along left chest wall, patient reports tenderness on exam. Pigtail kinked - adjusted. Repeat CXR. OBJECTIVE: BP (!) 157/96 (BP Location: Left arm, Patient Position (BP): Supine) Pulse (!) 104 Temp 98.8 ??F (37.1 ??C) (Temporal) Resp (!) 32 Ht 5' 11 (1.803 m) Wt 77.1 kg (169 lb 15.6 oz) SpO2 90% BMI 23.71 kg/m?? Intake/Output Summary (Last 24 hours) at 05/04/2025 0846 Last data filed at 05/04/2025 0720 Gross per 24 hour Intake 540 ml Output 2645 ml Net -2105 ml Last documented weight: Weight: 77.1 kg (169 lb 15.6 oz) (05/03/25 0500) Weight: 75.6 kg (166 lb 10.7 oz) (04/24/25 1522) Physical Exam: General appearance: Sitting in bed watching TV, appears comfortable. Lungs: Respirations unlabored, lungs clear, LpCT tubing kinked, repositioned. Heart: S1/S2 audible, regular rate, regular rhythm, no clicks, rubs, murmurs or gallops. Abdomen: Soft, non-tender to palpation, non-distended, normoactive bowel sounds x 4 quadrants, reports passing flatus. Extremities: Moves all extremities, warm and well perfused. Skin: Bruising to left chest wall and left neck, (+) palpable subcutaneous air. Data Reviewed: IMPRESSION: Please see below. Exam: XR CHEST PA OR AP 1 VW Date/Time of Exam: 05/03/2025 4:34 AM Reason For Exam: Pneumothorax, Comment: pneumothorax. Diagnosis: See Reason for Exam. Comparison: 05/02/2025. Findings: Apical lordotic projection obtained. Left pigtail pleural drain of the left midlung present. Persistent loculated left basilar pneumothorax. Stable cardiomediastinal silhouette with increase in left basilar and left perihilar atelectasis versus airspace disease. Linear scar versus platelike atelectasis of the right lung base. Diffuse emphysematous change. No significant pleural effusion or right pneumothorax. Extensive subcutaneous emphysema about the chest wall left greater than right and supraclavicular soft tissues. Impression: 1. Persistent loculated left basilar pneumothorax with increasing left basilar and left perihilar atelectasis versus airspace disease. ASSESSMENT: Active Hospital Problems Diagnosis Moderate protein-calorie malnutrition Chronic kidney disease, stage IV (severe) (CMS/HCC) Acute respiratory failure with hypoxia (CMS/HCC) Secondary spontaneous pneumothorax Cigarette smoker Elevated serum creatinine Hyperkalemia Resolved Hospital Problems No resolved problems to display. PLAN: S/p Bedside talc pleurodesis 05/01. Maintain Oxygenation to 88% to 92%, on supplemental nasal cannula at 1L LpCT (pigtail) tubing unkinked, repeat CXR ordered. Daily CXR Dr. Trammell to proceed with EBV today. NPO for EBV. Rest of care per primary team. CT Surgery will continue to follow, case reviewed with Dr. Atkins on AM rounds. Sunshine Dos Santos, LUIS ES, SHARLENE, PAFela Cardiac and Thoracic Surgery 05/04/2025 0852 Cosigned by Puma Atkins MD at 05/04/2025 1:37 PM CDT * Brayden Trammell MD - 05/03/2025 3:00 PM CDT [facility] Froylan Yan is a 60 y.o. male being seen for pneumothorax Admit Date: 04/24/2025 Subjective: No new complaints Objective: Meds: reviewed BP (!) 159/93 (BP Location: Left arm, Patient Position (BP): Supine) Pulse 85 Temp 97 ??F (36.1??C) (Temporal) Resp 14 Ht 5' 11 (1.803 m) Wt 77.1 kg (169 lb 15.6 oz) SpO2 90% BMI 23.71 kg/m?? Intake/Output Summary (Last 24 hours) at 05/03/20252128 Last data filed at 05/03/2025 1800 Gross per 24 hour Intake 780 ml Output 3815 ml Net -3035 ml Neuro: Alert awake oriented CV: Regular rate and rhythm Resp: Clear to auscultate bilaterally left-sided pigtail catheter connected to atrium box on suction with end expiratory airleak Ext: No pedal edema Subcutaneous emphysema noted in the left side of chest Labs, micro-results reviewed Imaging-independently reviewed and interpreted by me including chest x-ray from today which shows atrace left basilar pneumothorax Principal Problem: Secondary spontaneous pneumothorax Active Problems: Cigarette smoker Elevated serum creatinine Hyperkalemia Acute respiratory failure with hypoxia (CMS/HCC) Overview: Erroneous entry: I clinked on this inadvertently and listed my name and showed that I had updated but it was already listed as existing problem and it was by accident clinked on reviewing/ updating. Chronic kidney disease, stage IV (severe) (CMS/HCC) Moderate protein-calorie malnutrition Assessment: Secondary spontaneous pneumothorax Bronchopleural fistula Suspected emphysema Current smoker Elevated creatinine Hyperkalemia Plan: -failed talc pleurodesis - still having persistent air leak - detailed discussion with patient-- proceed to endobronchial valve placement. Educational materialprovided to the patient - case posted for tomorrow - npo at midnight - Rep informed to bring valve leak kit tomorrow for a 11 am case -informed Shania Mccarthy,* Brayden Trammell MD * Violette Mulligan RD - 05/03/2025 1:47 PM CDT The patient was evaluated by the dietitian and was found to have Malnutrition Nutrition Diagnosis: Moderate protein-calorie malnutrition (05/03/251299). The malnutrition pathway is recommended and the assessment via ASPEN criteria and nutrition recommendations from the dietitian are as follows: ASPEN Malnutrition Assessment and Findings Subcutaneous Fat Loss Assessment: Mild fat loss (05/03/251299) Muscle Wasting Assessment: Moderate (05/03/251299) Edema: Trace or slight contour changes (mild) (05/03/251299) Hand Seamer Panty Hose: Mild roll threader operator (mild) (05/03/251299) Percentage of Energy: < 75% for > 7 days (moderate-acute) (05/03/251299) Percentage of Weight Loss: No history of significant wt loss (05/03/251299) Malnutrition Decision Malnutrition Nutrition Diagnosis: Moderate protein-calorie malnutrition (05/03/251299) BMI BMI (Calculated): 23.72 (05/03/25 0500) Malnutrition Recommendations Nutrition Interventions: Oral nutrition supplement (05/03/251299) Nutrition Interventions: supplemental drinks ordered (05/03/251299) Cosigned by Shania Posadas MD at 05/03/2025 4:46 PM CDT * Violette Mulligan RD - 05/03/2025 1:02 PM CDT Reason For Nutrition Assessment: LOS, and Other Nutrition Diagnosis Malnutrition Nutrition Diagnosis: Moderate protein-calorie malnutrition (05/03/251299) In the context of: Acute Illness/Injury and Chronic Illness Problem: Increased nutrient needs (05/03/251299) Etiology: Chronic illness (05/03/251299) Signs/Symptoms: Change in functional ability (05/03/251299) Malnutrition Impact: Reduced oral intake, Delayed recovery, Decreased activity tolerance and reduced mobility, Increased readmission risk, Increased hospitalization length, and Increased risk of infection Interventions/Recommendations: Provide supplement tid with meals Provide texture of tolerance/ acceptance d/t no upper teeth or upper partial Nutrition Interventions: Oral nutrition supplement (05/03/251299) Goals: 75-100% of meals, Consume ordered supplements daily, No N/V, Stable weight, and Tolerate nutrition source Monitoring/Evaluation: intake, texture tolerance, labs, wt Nutrition Discharge Plan: TBD See below for full assessment Assessment 60 y.o.male admitted with Secondary spontaneous pneumothorax L, SOB, CP, HTN, tachycardia Subjective: 60-year-old male with a significant history of cigarette smoking, hypertension, CKD Food and Nutrition Related History: relates N but has resolved, variable intake, no upper teeth or partial Weight changes: Wt Readings from Last 8 Encounters: 05/03/25 77.1 kg (169 lb 15.6 oz) Subjective Global Assessment: Weight: During the past 2 weeks the patient's weight has: Not Changed (05/03/251299) Food Intake: Compared to normal intake, over the past month the patient's intake has been: Less than usual (05/03/251299) Less than usual: Normal food but less than normal amounts (05/03/251299) Symptoms: Patient reports the following problems that have kept them from eating enough during the past 2 weeks: Nausea;No appetite, did not feel like eating;Pain (05/03/251299) Activities & Function: Over the past month the patient generally rates their activity as: : Lowenergy but in bed or chair less than half the day (05/03/251299) Total score = SGA Score : 11 (05/03/251299) Nutrition Focused Exam Physical Findings- Summary: Malnutrition Nutrition Diagnosis: Moderate protein-calorie malnutrition (05/03/251299) Orbital: Flattened fat pads but not depressed (mild) (05/03/251299) Facial cheeks (buccal pads): Slightly depressed inward (mild) (05/03/251299) Biceps and triceps: Minor but noticeable thinning of fat tissue fold (mild) (05/03/251299) Ribs - lower back, mid axillary line: Chest is full, round, ribs do not show (no findings) (05/03/251299) Subcutaneous Fat Loss Assessment: Mild fat loss (05/03/251299) Temporal: Slight depression or shadowing (mild) (05/03/251299) Clavicle: Some protrusion (moderate) (05/03/251299) Shoulder (deltoid muscle): Shoulders not square, acromion process visible (moderate) (05/03/251299) Scapula: Slight depressions around the scapula bone, but not prominent (mild) (05/03/251299) Interosseous: Thinning, flattened muscle (mild) (05/03/251299) Thigh (quadriceps muscle): Not able to reduce. Well rounded, no depressions (no findings) () Knee: Muscle protrudes, bone not prominent (no findings) (05/03/251299) Calf (gastrocnemius muscle): 'Bulb' shape, firm and well developed (no findings) (05/03/251299) Muscle Wasting Assessment: Moderate (05/03/251299) Edema: Trace or slight contour changes (mild) (05/03/251299) Hand Seamer Panty Hose: Mild roll threader operator (mild) (05/03/251299) Percentage of Energy: < 75% for > 7 days (moderate-acute) (05/03/251299) Percentage of Weight Loss: No history of significant wt loss (05/03/251299) Estimated Needs: Estimated Energy Target: 1950- 2340 (05/03/251299) Estimated Protein Target: 78 -88 (05/03/251299) Estimated Fluid Target : 1950- 2340 (05/03/251299) Nutrition Energy Formula: Calories per kilogram (05/03/251299) Weight Used for Formula: [place] weight (05/03/251299) Clinical Data: Height: 5' 11 (180.3 cm) (04/24/25 1522) [place] body weight: 75.3 kg (166 lb 0.1 oz) Adjusted ideal body weight: 76 kg (167 lb 9.5 oz) Body mass index is 23.71 kg/m??. Admission:Weight: 75.6 kg (166 lb 10.7 oz) (04/24/25 1522) Weight Method: Actual (04/24/25 1522) Current:Weight: 77.1 kg (169 lb 15.6 oz) (05/03/25 0500) Wt Readings from Last 8 Encounters: 05/03/25 77.1 kg (169 lb 15.6 oz) Labs No results for input(s): GLUCOSE , BUN , CREAT , GFR , NA , K , CO2 , ANIONGAP , CA , MG , PO4 , ALBUMIN , ALKPHOS , ALT , AST , BILITOTAL , TRIGLYCERIDE , AMYLASE , LIPASE , HGBA1C , [id number] in the last 72 hours. Invalid input(s): CI , CALONIZED No results found for: PO4 , HGBA1C , [id number] , MG Current Diet and Intake: DIET POTASSIUM CONTROL Food/Meal: Breakfast (05/03/25814),Intake (%): 90% (05/03/25 08) , Skin: Lopez Score: 20 (05/03/25 0731) Gastrointestinal: Last Bowel Movement (mm/dd/yyyy): 05/02/25 (05/02/25 1000) Stool Consistency - Reference [place] Stool Chart: liquid - (type 7) (05/02/25 1000) Allergies: No Known Allergies No past medical history on file. Time spent:Consultation Time (mins): 30 mins (05/03/25 1300) * Shania Posadas MD - 05/03/2025 10:03 AM CDT Images from the original note were not included. Your life is our life's work [facility] Hospitalist/Hospital Medicine Progress Note LOS: 9 days Room/Bed: [facility]/ Patient name: Froylan Yan Date of : 1965 HOSPITAL COURSE SUMMARY: Froylan Yan is a 60-year-old male with a significant history of cigarette smoking, hypertension, CKD who was admitted to [facility] for evaluation and management of spontaneous pneumothorax on 04/24/25. The patient initially presented to an outside emergency department with sudden onset of left-sided chest pain and shortness of breath, where imaging revealed a large left pneumothorax; a pigtail catheter was placed, and the patient was transferred to [facility] for higher-level care, and admitted under hospital medicine. On arrival, Repeat chest xray confirmed improvement in the pneumothorax following chest tube placement. Labs revealed elevated creatinine secondary to CKD with hyperkalemia. Pulmonology was consulted for management and ongoing air leak which was suspected to be due to a small bronchopleural fistula, likely secondary to underlying severe emphysema. This evening 04/25/2025 a rapid response was called for chest pain with increased work of breathing accompanied by increased heart rate and hypertension. A stat x-ray was obtained revealing retracted left pleural pigtail catheter terminating over the left lateral chest wall with increased large leftpneumothorax, partially collapsed left lung. The patient was transferred to ICU for chest tube placement. Current Care Plan Summary 60-year-old male with no known medical history other than smoking admitted from outside facility on04/24/2025 for further management of spontaneous left-sided pneumothorax, pigtail placed at outside facility, admitted under hospital medicine. Today 04/25/2025 a rapid response was called for increasing shortness of breath, chest pain, hypertension, tachycardia, x-ray revealed retracted left pleuralpigtail, large left pneumothorax and partially collapsed left lung. Patient transferred to the ICU for chest tube placement. Chest tube placement per attending, follow-up x-ray pending, repeat x-ray in AM. Pulmonology following. Wean supplemental oxygen as tolerated Elevated creatinine with mild hyperkalemia secondary to CKD ; per patient he has been seen by nephrology prior. 04/26-04/27: Took over patient care today. Patient was initiated on 15 L-> weaned down to 6 L of O2 NC. Post chest tube placement , x-ray showed significant improvement in lung expansion though a small expiratory air leak persisted and subcutaneous emphysema was present but improving Close monitoring of the chest tube and daily chest x-rays ordered daily. Pulmonology still on board Hyperkalemia resolved. Nephrology on board 04/28: Assumed care of patient. Currently on 2 L nasal cannula chest tube in place being managed by pulmonology. Potassium normal today at 4.5 nephrology following 04/29: continue chest tube. 04/30: CTS consulted by Pulm appreciate recs 05/01: CTS with plans for talc pleurodesis today. CT clamped 05/02: completed talc pleurodesis yesterday plans for possible EBV 05/03: doing well awaiting valve. Consultants: IP CONSULT TO PULMONOLOGY IP CONSULT TO NEPHROLOGY SUBJECTIVE: Patient resting in bed states he is having pain with inspiration ROS: History obtained from the patient Constitutional: negative for fever, chills, negative for confusion, fatigue Pulmonary: negative for dyspnea, no cough Cardiovascular: negative for chest pain, no palpitations, no orthopnea GI: negative for nausea, vomiting, diarrhea and constipation, no abdominal pain Renal: no dysuria, no hematuria Musculoskeletal: no back pain, no joint pain, no calf swelling Neuro: negative for headache, no vision changes, no dizziness Skin: no skin rash, no redness OBJECTIVE: Temp (24hrs), Av.3 ??F (36.8 ??C), Min:97.7 ??F (36.5 ??C), Max:98.8 ??F (37.1 ??C) BP (!) 148/90 Pulse 89 Temp 98.2 ??F (36.8 ??C) (Temporal) Resp 18 Ht 5' 11 (1.803 m) Wt77.1 kg (169 lb 15.6 oz) SpO2 91% BMI 23.71 kg/m?? Intake/Output Summary (Last 24 hours) at 05/03/2025 1003 Last data filed at 05/03/2025 0834 Gross per 24 hour Intake 360 ml Output 2181 ml Net -1821 ml Last documented weight: Weight: 77.1 kg (169 lb 15.6 oz) (05/03/25 0500) EXAM: General: alert, in no distress Neurologic: Grossly normal HEENT: atraumatic, Normocephalic, without obvious abnormality Lungs: normal respiratory effort, chest tube left Heart: normal rate and regular rhythm Abdomen: Soft, non-tender. Bowel sounds normal. No masses, no organomegaly. Extremities: extremities normal, atraumatic, no cyanosis or edema Skin: negative LABORATORY: No results for input(s): WBC , HGB , HCT , PLT in the last 72 hours. No results for input(s): NA , K , CL , CO2 , CA , BUN , CREAT , GLUCOSE in the last 72 hours. No results for input(s): TOTALPROTEIN , ALBUMIN , BILITOTAL , ALKPHOS , AST , ALT in the last 72 hours. No results for input(s): INR , PT in the last 72 hours. Invalid input(s): PTT No results for input(s): BASETROP , 2HRTROP , DELTA , 6HRTROP in the last 72 hours. Diagnostic testing reviewed by me: Medications were reviewed by me. Current Facility-Administered Medications: sterile talc intrapleural (STERITALC) 4 gram suspension, , Intrapleural, intra- proc ONE time, [place], Thais C, AEROPHYSICS ENGINEER lidocaine 1 % (XYLOCAINE) injection 300 mg, 30 mL, Infiltration, ONE time only, [place], Thais C, AEROPHYSICS ENGINEER sodium bicarbonate tablet 650 mg, 650 mg, Oral, BID, Liset William DO, 650 mg at 05/03/25 0827 hydrALAZINE (APRESOLINE) 20 mg/mL injection 10 mg, 10 mg, IV, every 6 hours PRN, Nimisha Nicole APRN-RICA labetaloL (NORMODYNE;TRANDATE) 5 mg/mL injection 10 mg, 10 mg, IV, every 4 hours PRN, Nimisha Nicole APRN-BC, 10 mg at 04/25/25 0133 umeclidinium (INCRUSE ELLIPTA) 62.5 mcg/actuation inhaler 1 Puff, 1 Puff, Inhalation, resp, daily, Niimsha Nicole APRN-RICA, 1 Puff at 05/03/25 0834 dextrose 5 % bolus solution 120 mL, 120 mL, IV, ONE time only, Nimisha Nicole APRN-BC HYDROcodone-acetaminophen (NORCO) 5-325 mg per tablet 1 Tablet, 1 Tablet, Oral, every 4 hours PRN, Nimisha Nicole APRN-BC, 1 Tablet at 05/03/25 0443 HYDROmorphone (PF) (DILAUDID) injection 0.5 mg, 0.5 mg, IV, every 3 hours PRN, Nimisha Nicole APRN-BC, 0.5 mg at 05/03/25 0834 naloxone (NARCAN) 0.4 mg/mL injection 0.1-0.4 mg, 0.1-0.4 mg, IV, see admin instructions, Nimisha Nicole APRN-BC sodium chloride flush injection 10 mL, 10 mL, IV, every 12 hours (2 times daily), Nimisha Nicole APRN-BC, 10 mL at 05/03/25 0848 sodium chloride flush injection 10 mL, 10 mL, IV, see admin instructions, Nimisha Nicole APRN-BC sodium chloride 0.9 % flush bag 25 mL, 25 mL, IV, see admin instructions, Nimisha Nicole APRN-BC dextrose 5 % in water 250 mL flush bag 25 mL, 25 mL, IV, see admin instructions, Nimisha Nicole APRN-BC acetaminophen (TYLENOL) tablet 650 mg, 650 mg, Oral, every 6 hours PRN, Nimisha Nicole APRN-BC ondansetron (ZOFRAN ODT) tablet 4 mg, 4 mg, Oral, every 6 hours PRN, Nimisha Nicole APRN-BC,4 mg at 04/25/25 0731 nicotine (NICODERM CQ) 7 mg/24 hr transdermal patch 1 Patch, 1 Patch, Transdermal, daily, Nimisha Nicole APRN-BC, 1 Patch at 05/03/25 0828 albuterol sulfate 90 mcg/Actuation inhaler 2 Puff, 2 Puff, Inhalation, resp, every 6 hours PRN, Nimisha Nicole APRN-BC ipratropium-albuteroL (DUONEB) 0.5 mg-3 mg(2.5 mg base)/3 mL inhalation solution 3 mL, 3 mL, Inhalation, resp, every 4 hours PRN, Nimisha Nicole APRN-BC heparin injection 5,000 Units, 5,000 Units, subCUT, every 8 hours, Nimisha Nicole APRN-BC, 5,000 Units at 05/03/25 0444 Primary discharge diagnosis: Secondary spontaneous pneumothorax Other active medical issues also addressed during this admission: Active Hospital Problems Diagnosis Chronic kidney disease, stage IV (severe) (CMS/HCC) Acute respiratory failure with hypoxia (CMS/HCC) Secondary spontaneous pneumothorax Cigarette smoker Elevated serum creatinine Hyperkalemia Resolved Hospital Problems No resolved problems to display. ASSESSMENT AND PLAN: Acute hypoxic respiratory failure secondary to spontaneous pneumothorax secondary to BP fistula Pulmonology following and managing chest tube appreciate recommendations CTS consulted completed talc pleurodesis 05/01, plans for possible EBV Daily chest x-rays O2 supplementation 88%-92%, wean as tolerated not on oxygen at home Hyperkalemia, resolved CKD stage IIIb Stable continue to monitor Nephrology following appreciate recs DVT prophylaxis: DVT Pharmacologic Prophylaxis: heparin injection 5,000 Units [[id number]] Code status: Full Code Outpatient follow up: PCP pulmonology Anticipated Disposition Location: LTAC vs home Timeframe: Criteria: Improved Patient's understanding of illness: Good Primary family contact: MDM complexity: [] Mild [x] Moderate [] High Shania Posadas MD 05/03/2025, 10:03 AM * Antony Galan PA-C - 05/03/2025 8:20 AM CDT Thoracic Surgery Progress Note Admit Date: 04/24/2025 Hospital day: LOS: 9 days SUBJECTIVE: No complaints this morning. Eating breakfast. 05/03-Chest tube with air leak. Will discuss with Dr. Trammell. OBJECTIVE: BP (!) 148/90 Pulse 84 Temp 98.2 ??F (36.8 ??C) (Temporal) Resp 14 Ht 5' 11 (1.803 m) Wt 77.1 kg (169 lb 15.6 oz) SpO2 90% BMI 23.71 kg/m?? Intake/Output Summary (Last 24 hours) at 05/03/2025 0820 Last data filed at 05/03/2025 0815 Gross per 24 hour Intake 600 ml Output 1831 ml Net -1231 ml Last documented weight: Weight: 77.1 kg (169 lb 15.6 oz) (05/03/25 0500) Weight: 75.6 kg (166 lb 10.7 oz) (04/24/25 1522) Physical Exam: General appearance: Alert in no acute distress. Lungs: normal effort, on 1L nasal cannula. Heart: RR Abdomen: soft and non-tender. Extremities: =Moves all extremities. Skin: warm and dry Data Reviewed: IMPRESSION: Please see below. Exam: XR CHEST PA OR AP 1 VW Date/Time of Exam: 05/03/2025 4:34 AM Reason For Exam: Pneumothorax, Comment: pneumothorax. Diagnosis: See Reason for Exam. Comparison: 05/02/2025. Findings: Apical lordotic projection obtained. Left pigtail pleural drain of the left midlung present. Persistent loculated left basilar pneumothorax. Stable cardiomediastinal silhouette with increase in left basilar and left perihilar atelectasis versus airspace disease. Linear scar versus platelike atelectasis of the right lung base. Diffuse emphysematous change. No significant pleural effusion or right pneumothorax. Extensive subcutaneous emphysema about the chest wall left greater than right and supraclavicular soft tissues. Impression: 1. Persistent loculated left basilar pneumothorax with increasing left basilar and left perihilar atelectasis versus airspace disease. ASSESSMENT: Active Hospital Problems Diagnosis Chronic kidney disease, stage IV (severe) (CMS/HCC) Acute respiratory failure with hypoxia (CMS/HCC) Secondary spontaneous pneumothorax Cigarette smoker Elevated serum creatinine Hyperkalemia Resolved Hospital Problems No resolved problems to display. PLAN: S/p Bedside talc pleurodesis 05/01. Maintain Oxygenation to 88% to 92% Daily CXR Will discuss with pulmonology team for possible EBV Rest of care per primary team CT Surgery will continue to follow Antony Galan PA-C Cardiothoracic Surgery Cosigned by Puma Atkins MD at 05/03/2025 10:40 AM CDT * Shania Posadas MD - 05/02/2025 10:12 AM CDT Images from the original note were not included. Your life is our life's work [facility] Hospitalist/Hospital Medicine Progress Note LOS: 8 days Room/Bed: 4267/01 Patient name: Froylan Yan Date of : 1965 HOSPITAL COURSE SUMMARY: Froylan Yan is a 60-year-old male with a significant history of cigarette smoking, hypertension, CKD who was admitted to [facility] for evaluation and management of spontaneous pneumothorax on 04/24/25. The patient initially presented to an outside emergency department with sudden onset of left-sided chest pain and shortness of breath, where imaging revealed a large left pneumothorax; a pigtail catheter was placed, and the patient was transferred to [facility] for higher-level care, and admitted under hospital medicine. On arrival, Repeat chest xray confirmed improvement in the pneumothorax following chest tube placement. Labs revealed elevated creatinine secondary to CKD with hyperkalemia. Pulmonology was consulted for management and ongoing air leak which was suspected to be due to a small bronchopleural fistula, likely secondary to underlying severe emphysema. This evening 04/25/2025 a rapid response was called for chest pain with increased work of breathing accompanied by increased heart rate and hypertension. A stat x-ray was obtained revealing retracted left pleural pigtail catheter terminating over the left lateral chest wall with increased large leftpneumothorax, partially collapsed left lung. The patient was transferred to ICU for chest tube placement. Current Care Plan Summary 60-year-old male with no known medical history other than smoking admitted from outside facility on04/24/2025 for further management of spontaneous left-sided pneumothorax, pigtail placed at outside facility, admitted under hospital medicine. Today 04/25/2025 a rapid response was called for increasing shortness of breath, chest pain, hypertension, tachycardia, x-ray revealed retracted left pleuralpigtail, large left pneumothorax and partially collapsed left lung. Patient transferred to the ICU for chest tube placement. Chest tube placement per attending, follow-up x-ray pending, repeat x-ray in AM. Pulmonology following. Wean supplemental oxygen as tolerated Elevated creatinine with mild hyperkalemia secondary to CKD ; per patient he has been seen by nephrology prior. 04/26-04/27: Took over patient care today. Patient was initiated on 15 L-> weaned down to 6 L of O2 NC. Post chest tube placement , x-ray showed significant improvement in lung expansion though a small expiratory air leak persisted and subcutaneous emphysema was present but improving Close monitoring of the chest tube and daily chest x-rays ordered daily. Pulmonology still on board Hyperkalemia resolved. Nephrology on board 04/28: Assumed care of patient. Currently on 2 L nasal cannula chest tube in place being managed by pulmonology. Potassium normal today at 4.5 nephrology following 04/29: continue chest tube. 04/30: CTS consulted by Pulm appreciate recs 05/01: CTS with plans for talc pleurodesis today. CT clamped 05/02: completed talc pleurodesis yesterday plans for possible EBV Consultants: IP CONSULT TO PULMONOLOGY IP CONSULT TO NEPHROLOGY SUBJECTIVE: Patient resting in bed no distress. ROS: History obtained from the patient Constitutional: negative for fever, chills, negative for confusion, fatigue Pulmonary: negative for dyspnea, no cough Cardiovascular: negative for chest pain, no palpitations, no orthopnea GI: negative for nausea, vomiting, diarrhea and constipation, no abdominal pain Renal: no dysuria, no hematuria Musculoskeletal: no back pain, no joint pain, no calf swelling Neuro: negative for headache, no vision changes, no dizziness Skin: no skin rash, no redness OBJECTIVE: Temp (24hrs), Av.6 ??F (36.4 ??C), Min:97 ??F (36.1 ??C), Max:98.5 ??F (36.9 ??C) BP (!) 152/86 (BP Location: Left arm, Patient Position (BP): Supine) Pulse 84 Temp 98.5 ??F (36.9 ??C) (Temporal) Resp 16 Ht 5' 11 (1.803 m) Wt 78.5 kg (173 lb 1 oz) SpO2 95% BMI 24.14kg/m?? Intake/Output Summary (Last 24 hours) at 05/02/2025 1012 Last data filed at 05/02/2025 0900 Gross per 24 hour Intake 240 ml Output 272 ml Net -32 ml Last documented weight: Weight: 78.5 kg (173 lb 1 oz) (05/01/25 0600) EXAM: General: alert, in no distress Neurologic: Grossly normal HEENT: atraumatic, Normocephalic, without obvious abnormality Lungs: normal respiratory effort, chest tube left Heart: normal rate and regular rhythm Abdomen: Soft, non-tender. Bowel sounds normal. No masses, no organomegaly. Extremities: extremities normal, atraumatic, no cyanosis or edema Skin: negative LABORATORY: No results for input(s): WBC , HGB , HCT , PLT in the last 72 hours. No results for input(s): NA , K , CL , CO2 , CA , BUN , CREAT , GLUCOSE in the last 72 hours. No results for input(s): TOTALPROTEIN , ALBUMIN , BILITOTAL , ALKPHOS , AST , ALT in the last 72 hours. No results for input(s): INR , PT in the last 72 hours. Invalid input(s): PTT No results for input(s): BASETROP , 2HRTROP , DELTA , 6HRTROP in the last 72 hours. Diagnostic testing reviewed by me: Medications were reviewed by me. Current Facility-Administered Medications: sterile talc intrapleural (STERITALC) 4 gram suspension, , Intrapleural, intra- proc ONE time, Colin, Thais C, AEROPHYSICS ENGINEER lidocaine 1 % (XYLOCAINE) injection 300 mg, 30 mL, Infiltration, ONE time only, Choteau, Thais C, AEROPHYSICS ENGINEER sodium bicarbonate tablet 650 mg, 650 mg, Oral, BID, Liset William DO, 650 mg at 05/02/25 0828 hydrALAZINE (APRESOLINE) 20 mg/mL injection 10 mg, 10 mg, IV, every 6 hours PRN, Nimisha Nicole, MAINTENANCE ASSISTANT-BC labetaloL (NORMODYNE;TRANDATE) 5 mg/mL injection 10 mg, 10 mg, IV, every 4 hours PRN, Nimisha Nicole, MAINTENANCE ASSISTANT-BC, 10 mg at 04/25/25 0133 umeclidinium (INCRUSE ELLIPTA) 62.5 mcg/actuation inhaler 1 Puff, 1 Puff, Inhalation, resp, daily, Nimisha Nicole MAINTENANCE ASSISTANT-BC, 1 Puff at 05/02/25 0833 dextrose 5 % bolus solution 120 mL, 120 mL, IV, ONE time only, Nimisha Nicole, MAINTENANCE ASSISTANT-BC HYDROcodone-acetaminophen (NORCO) 5-325 mg per tablet 1 Tablet, 1 Tablet, Oral, every 4 hours PRN, Nimisha Nicole, MAINTENANCE ASSISTANT-BC, 1 Tablet at 05/02/25 0441 HYDROmorphone (PF) (DILAUDID) injection 0.5 mg, 0.5 mg, IV, every 3 hours PRN, Nimisha Nicole APRN-BC, 0.5 mg at 05/01/25 2310 naloxone (NARCAN) 0.4 mg/mL injection 0.1-0.4 mg, 0.1-0.4 mg, IV, see admin instructions, Nimisha Nicole APRN-BC sodium chloride flush injection 10 mL, 10 mL, IV, every 12 hours (2 times daily), Nimisha Nicole APRN-BC, 10 mL at 05/02/25 0831 sodium chloride flush injection 10 mL, 10 mL, IV, see admin instructions, Nimisha Nicole APRN-BC sodium chloride 0.9 % flush bag 25 mL, 25 mL, IV, see admin instructions, Nimisha Nicole APRN-BC dextrose 5 % in water 250 mL flush bag 25 mL, 25 mL, IV, see admin instructions, Nimisha Nicole APRN-BC acetaminophen (TYLENOL) tablet 650 mg, 650 mg, Oral, every 6 hours PRN, Nimisha Nicole APRN-BC ondansetron (ZOFRAN ODT) tablet 4 mg, 4 mg, Oral, every 6 hours PRN, Nimisha Nicole APRN-BC,4 mg at 04/25/25 0731 nicotine (NICODERM CQ) 7 mg/24 hr transdermal patch 1 Patch, 1 Patch, Transdermal, daily, Nimisha Nicole APRN-BC, 1 Patch at 05/02/25 0828 albuterol sulfate 90 mcg/Actuation inhaler 2 Puff, 2 Puff, Inhalation, resp, every 6 hours PRN, Nimisha Nicole APRN-BC ipratropium-albuteroL (DUONEB) 0.5 mg-3 mg(2.5 mg base)/3 mL inhalation solution 3 mL, 3 mL, Inhalation, resp, every 4 hours PRN, Nimisha Nicole APRN-BC heparin injection 5,000 Units, 5,000 Units, subCUT, every 8 hours, Nimisha Nicole APRN-BC, 5,000 Units at 05/02/25 0426 Primary discharge diagnosis: Secondary spontaneous pneumothorax Other active medical issues also addressed during this admission: Active Hospital Problems Diagnosis Chronic kidney disease, stage IV (severe) (CMS/HCC) Acute respiratory failure with hypoxia (CMS/HCC) Secondary spontaneous pneumothorax Cigarette smoker Elevated serum creatinine Hyperkalemia Resolved Hospital Problems No resolved problems to display. ASSESSMENT AND PLAN: Acute hypoxic respiratory failure secondary to spontaneous pneumothorax secondary to BP fistula Pulmonology following and managing chest tube appreciate recommendations CTS consulted completed talc pleurodesis yesterday, plans for possible EBV Daily chest x-rays O2 supplementation, wean as tolerated not on oxygen at home Hyperkalemia, resolved CKD stage IIIb Stable continue to monitor Nephrology following appreciate recs DVT prophylaxis: DVT Pharmacologic Prophylaxis: heparin injection 5,000 Units [[id number]] Code status: Full Code Outpatient follow up: PCP pulmonology Anticipated Disposition Location: LTAC vs home Timeframe: Criteria: Improved Patient's understanding of illness: Good Primary family contact: MDM complexity: [] Mild [x] Moderate [] High Shania Posadas MD 05/02/2025, 10:12 AM * Thais Shaw NP - 05/02/2025 9:31 AM CDT Thoracic Surgery Progress Note Admit Date: 04/24/2025 Hospital day: LOS: 8 days SUBJECTIVE: No complaints this morning. Eating breakfast. OBJECTIVE: BP (!) 152/86 (BP Location: Left arm, Patient Position (BP): Supine) Pulse 84 Temp 98.5 ??F (36.9 ??C) (Temporal) Resp 16 Ht 5' 11 (1.803 m) Wt 78.5 kg (173 lb 1 oz) SpO2 95% BMI 24.14kg/m?? Intake/Output Summary (Last 24 hours) at 05/02/2025 0931 Last data filed at 05/02/2025 0900 Gross per 24 hour Intake 240 ml Output 272 ml Net -32 ml Last documented weight: Weight: 78.5 kg (173 lb 1 oz) (05/01/25 0600) Weight: 75.6 kg (166 lb 10.7 oz) (04/24/25 1522) Physical Exam: General appearance: active, alert, in no distress, appears older than stated age, well-developed, well-nourished, in no acute distress Musculoskeletal: no obvious skeletal deformities Back: no kyphosis or scoliosis HEENT: pupils equal and reactive, hearing grossly intact, present and adequate Lungs: clear to auscultation bilaterally, pigtail chest tube left Chest wall: no tenderness, subQ emphysema through out Heart: normal S1 and S2, without murmurs, rubs or gallops. Regular rhythm. Abdomen: soft and non-tender. Normal bowel sounds present. No hepatosplenomegaly. No masses. Genital/Rectal: deferred Extremities: no cyanosis, clubbing or edema Neurologic: grossly intact and non-focal Pulses: carotid pulses 2+ and symmetric. No carotid bruits. Skin: warm and dry Lymph: Axillary, cervical, supraclavicular, umbilical, and inguinal nodes without adenopathy. Data Reviewed: Exam: Radiographs: XR CHEST PA OR AP 1 VW Indication: Pneumothorax IMPRESSION: Small left pneumothorax. Atelectasis and/or infiltrate in the left lower lung. Left pigtail chest tube. Extensive soft tissue emphysema throughout the chest. Emphysema and hyperinflation both lungs. Remainder unremarkable. ASSESSMENT: Active Hospital Problems Diagnosis Chronic kidney disease, stage IV (severe) (CMS/HCC) Acute respiratory failure with hypoxia (CMS/HCC) Secondary spontaneous pneumothorax Cigarette smoker Elevated serum creatinine Hyperkalemia Resolved Hospital Problems No resolved problems to display. PLAN: S/p Bedside talc pleurodesis yesterday Maintain Oxygenation to 88% to 92% Daily CXR Will discuss with pulmonology team for possible EBV Rest of care per primary team CT Surgery will continue to follow Patient understood and agreed to the above plan Patient seen and evaluated with TERESA Joseph Cardiothoracic Surgery Cosigned by Puma Atkins MD at 05/03/2025 6:37 AM CDT * Taryn Lai MD - 05/01/2025 6:44 PM CDT [facility] PRO[facility] NOTE Froylan Yan is a 60 y.o. male being seen for pneumothorax Admit Date: 04/24/2025 Subjective: Continues to have pain on the left side of the chest which has increased with talc instillation. Objective: Meds: reviewed BP (!) 153/90 (BP Location: Left arm, Patient Position (BP): Supine) Pulse 97 Temp 98 ??F (36.7??C) (Temporal) Resp 10 Ht 5' 11 (1.803 m) Wt 78.5 kg (173 lb 1 oz) SpO2 93% BMI 24.14 kg/m?? Intake/Output Summary (Last 24 hours) at 05/01/2025 1844 Last data filed at 05/01/2025 1550 Gross per 24 hour Intake 1050 ml Output 105 ml Net 945 ml Neuro: Alert awake oriented CV: Regular rate and rhythm Resp: Clear to auscultate bilaterally left-sided pigtail catheter connected to atrium box on suction with expiratory airleak Ext: No pedal edema Subcutaneous emphysema noted in the left side of chest Labs, micro-results reviewed Imaging-independently reviewed and interpreted by me including chest x-ray from today which shows atrace left basilar pneumothorax Principal Problem: Secondary spontaneous pneumothorax Active Problems: Cigarette smoker Elevated serum creatinine Hyperkalemia Acute respiratory failure with hypoxia (CMS/HCC) Chronic kidney disease, stage IV (severe) (CMS/HCC) Assessment: Secondary spontaneous pneumothorax Bronchopleural fistula Suspected emphysema Current smoker Elevated creatinine Hyperkalemia Plan: -Status post chest tube placement with significant improvement in lung expansion but with ongoing expiratory leak. - Atrium box at - 20 cm H2O and on continuous wall suction. -Has significant subcutaneous emphysema on the left side of the chest. - Increased supplemental oxygen to 6 L/min to promote resorption of pneumothorax via nitrogen washout effect. Ideally recommend 10 L to 15 L via non-rebreather mask if patient is able to tolerate high flow. - Cardiothoracic surgery did talc pleurodesis this morning. Continues to have expiratory leak. Reviewed the chest X ray images from today. - Recommend adequate pain management. - Further management of the chest tube and pneumothorax as per Cardiothoracic surgery. - History of COPD- Not in exacerbation. Continue with Incruse. Pulmonary will sign off. Taryn Lai MD * Thais Shaw NP - 05/01/2025 12:06 PM CDT Thoracic Surgery Progress Note Admit Date: 04/24/2025 Hospital day: LOS: 7 days SUBJECTIVE: No complaints this morning. Was put on 2LNC after clamping chest tube for 1 hour. OBJECTIVE: BP (!) 159/103 (BP Location: Left arm, Patient Position (BP): Supine) Pulse (!) 114 Temp 97.1 ??F (36.2 ??C) (Temporal) Resp 15 Ht 5' 11 (1.803 m) Wt 78.5 kg (173 lb 1 oz) SpO2 90% BMI24.14 kg/m?? Intake/Output Summary (Last 24 hours) at 05/01/2025 1212 Last data filed at 05/01/2025 0800 Gross per 24 hour Intake 1050 ml Output 15 ml Net 1035 ml Last documented weight: Weight: 78.5 kg (173 lb 1 oz) (05/01/25 0600) Weight: 75.6 kg (166 lb 10.7 oz) (04/24/25 1522) Physical Exam: General appearance: active, alert, in no distress, appears older than stated age, well-developed, well-nourished, in no acute distress Musculoskeletal: no obvious skeletal deformities Back: no kyphosis or scoliosis HEENT: pupils equal and reactive, hearing grossly intact, present and adequate Lungs: clear to auscultation bilaterally, pigtail chest tube left Chest wall: no tenderness, subQ emphysema through out Heart: normal S1 and S2, without murmurs, rubs or gallops. Regular rhythm. Abdomen: soft and non-tender. Normal bowel sounds present. No hepatosplenomegaly. No masses. Genital/Rectal: deferred Extremities: no cyanosis, clubbing or edema Neurologic: grossly intact and non-focal Pulses: carotid pulses 2+ and symmetric. No carotid bruits. Skin: warm and dry Lymph: Axillary, cervical, supraclavicular, umbilical, and inguinal nodes without adenopathy. Data Reviewed: Exam: Radiographs: XR CHEST PA OR AP 1 VW Indication: Pneumothorax Comparison: Chest x-ray from yesterday IMPRESSION: Small left pneumothorax. Small amount of atelectasis and/or infiltrate in the lower lungs bilaterally. Pigtail left chest tube. Soft tissue emphysema throughout the chest. Emphysema and hyperinflation both lungs. Remainder unremarkable. XR CHEST PA OR AP 1 VW (chest tube clamped) Reason For Exam: Pneumothorax. Diagnosis: See Reason for Exam. COMPARISON: 05/01/2025 FINDINGS: Left chest tube is present. However a moderate to large left pneumothorax has developed in the interim. The findings and/or imaging diagnoses in the above impression have been deemed a critical result by the interpreting radiologist and immediately reported as such to the ordering physician or appropriate licensed caregiver in accordance with current radiology department policy. CBC: No results for input(s): WBC , HGB , HCT , PLT , MCV in the last 72 hours. BMP: Recent Labs 04/29/25 0554 GLUCOSE 114* BUN 44* CREAT 1.97* NA 135* K 4.5 CL 100 CO2 23 ANIONGAP 12 CA 9.2 ASSESSMENT: Active Hospital Problems Diagnosis Chronic kidney disease, stage IV (severe) (CMS/HCC) Acute respiratory failure with hypoxia (CMS/HCC) Secondary spontaneous pneumothorax Cigarette smoker Elevated serum creatinine Hyperkalemia Resolved Hospital Problems No resolved problems to display. PLAN: Bedside talc pleurodesis today Daily CXR Rest of care per primary team CT Surgery will continue to follow Patient understood and agreed to the above plan Patient [facility] and [facility] Cosigned by Puma Atkins MD at 05/02/2025 8:21 AM CDT * Shania Posadas MD - 05/01/2025 10:25 AM CDT Images from the original note were not included. Your life is our life's work [facility] Hospitalist/Hospital Medicine Progress Note LOS: 7 days Room/Bed: 42/ Patient name: Froylan Yan Date of : 1965 HOSPITAL COURSE SUMMARY: Froylan Yan is a 60-year-old male with a significant history of cigarette smoking, hypertension, CKD who was admitted to [facility] for evaluation and management of spontaneous pneumothorax on 04/24/25. The patient initially presented to an outside emergency department with sudden onset of left-sided chest pain and shortness of breath, where imaging revealed a large left pneumothorax; a pigtail catheter was placed, and the patient was transferred to [facility] for higher-level care, and admitted under hospital medicine. On arrival, Repeat chest xray confirmed improvement in the pneumothorax following chest tube placement. Labs revealed elevated creatinine secondary to CKD with hyperkalemia. Pulmonology was consulted for management and ongoing air leak which was suspected to be due to a small bronchopleural fistula, likely secondary to underlying severe emphysema. This evening 04/25/2025 a rapid response was called for chest pain with increased work of breathing accompanied by increased heart rate and hypertension. A stat x-ray was obtained revealing retracted left pleural pigtail catheter terminating over the left lateral chest wall with increased large leftpneumothorax, partially collapsed left lung. The patient was transferred to ICU for chest tube placement. Current Care Plan Summary 60-year-old male with no known medical history other than smoking admitted from outside facility on04/24/2025 for further management of spontaneous left-sided pneumothorax, pigtail placed at outside facility, admitted under hospital medicine. Today 04/25/2025 a rapid response was called for increasing shortness of breath, chest pain, hypertension, tachycardia, x-ray revealed retracted left pleuralpigtail, large left pneumothorax and partially collapsed left lung. Patient transferred to the ICU for chest tube placement. Chest tube placement per attending, follow-up x-ray pending, repeat x-ray in AM. Pulmonology following. Wean supplemental oxygen as tolerated Elevated creatinine with mild hyperkalemia secondary to CKD ; per patient he has been seen by nephrology prior. 04/26-04/27: Took over patient care today. Patient was initiated on 15 L-> weaned down to 6 L of O2 NC. Post chest tube placement , x-ray showed significant improvement in lung expansion though a small expiratory air leak persisted and subcutaneous emphysema was present but improving Close monitoring of the chest tube and daily chest x-rays ordered daily. Pulmonology still on board Hyperkalemia resolved. Nephrology on board 04/28: Assumed care of patient. Currently on 2 L nasal cannula chest tube in place being managed by pulmonology. Potassium normal today at 4.5 nephrology following 04/29: continue chest tube. 04/30: CTS consulted by Pulm appreciate recs 05/01: CTS with plans for talc pleurodesis today. CT clamped Consultants: IP CONSULT TO PULMONOLOGY IP CONSULT TO NEPHROLOGY SUBJECTIVE: Patient resting in bed denies any pain ROS: History obtained from the patient Constitutional: negative for fever, chills, negative for confusion, fatigue Pulmonary: negative for dyspnea, no cough Cardiovascular: negative for chest pain, no palpitations, no orthopnea GI: negative for nausea, vomiting, diarrhea and constipation, no abdominal pain Renal: no dysuria, no hematuria Musculoskeletal: no back pain, no joint pain, no calf swelling Neuro: negative for headache, no vision changes, no dizziness Skin: no skin rash, no redness OBJECTIVE: Temp (24hrs), Av.7 ??F (36.5 ??C), Min:97.1 ??F (36.2 ??C), Max:98 ??F (36.7 ??C) BP (!) 163/99 (BP Location: Left arm, Patient Position (BP): Supine) Pulse 86 Temp 97.1 ??F (36.2 ??C) (Temporal) Resp 15 Ht 5' 11 (1.803 m) Wt 78.5 kg (173 lb 1 oz) SpO2 93% BMI 24.14kg/m?? Intake/Output Summary (Last 24 hours) at 05/01/2025 1025 Last data filed at 05/01/2025 0800 Gross per 24 hour Intake 1290 ml Output 15 ml Net 1275 ml Last documented weight: Weight: 78.5 kg (173 lb 1 oz) (05/01/25 0600) EXAM: General: alert, in no distress Neurologic: Grossly normal HEENT: atraumatic, Normocephalic, without obvious abnormality Lungs: normal respiratory effort, chest tube left Heart: normal rate and regular rhythm Abdomen: Soft, non-tender. Bowel sounds normal. No masses, no organomegaly. Extremities: extremities normal, atraumatic, no cyanosis or edema Skin: negative LABORATORY: No results for input(s): WBC , HGB , HCT , PLT in the last 72 hours. Recent Labs 04/29/25 0554 NA 135* K 4.5 CL 100 CO2 23 CA 9.2 BUN 44* CREAT 1.97* GLUCOSE 114* No results for input(s): TOTALPROTEIN , ALBUMIN , BILITOTAL , ALKPHOS , AST , ALT in the last 72 hours. No results for input(s): INR , PT in the last 72 hours. Invalid input(s): PTT No results for input(s): BASETROP , 2HRTROP , DELTA , 6HRTROP in the last 72 hours. Diagnostic testing reviewed by me: Medications were reviewed by me. Current Facility-Administered Medications: sterile talc intrapleural (STERITALC) 4 gram suspension, , Intrapleural, intra- proc ONE time, Choteau, Thais C, AEROPHYSICS ENGINEER lidocaine 1 % (XYLOCAINE) injection 300 mg, 30 mL, Infiltration, ONE time only, Choteau, Thais C, AEROPHYSICS ENGINEER sodium bicarbonate tablet 650 mg, 650 mg, Oral, BID, Liset William DO, 650 mg at 05/01/25 0944 hydrALAZINE (APRESOLINE) 20 mg/mL injection 10 mg, 10 mg, IV, every 6 hours PRN, Nimisha Nicole MAINTENANCE ASSISTANT-BC labetaloL (NORMODYNE;TRANDATE) 5 mg/mL injection 10 mg, 10 mg, IV, every 4 hours PRN, Nimisha Nicole APRN-BC, 10 mg at 04/25/25 0133 umeclidinium (INCRUSE ELLIPTA) 62.5 mcg/actuation inhaler 1 Puff, 1 Puff, Inhalation, resp, daily, Nimisha Nicole APRN-BC, 1 Puff at 04/30/25 0946 dextrose 5 % bolus solution 120 mL, 120 mL, IV, ONE time only, Nimisha Nicole MAINTENANCE ASSISTANT-BC HYDROcodone-acetaminophen (NORCO) 5-325 mg per tablet 1 Tablet, 1 Tablet, Oral, every 4 hours PRN, Nimisha Nicole MAINTENANCE ASSISTANT-BC, 1 Tablet at 04/30/25 1255 HYDROmorphone (PF) (DILAUDID) injection 0.5 mg, 0.5 mg, IV, every 3 hours PRN, Nimisha Nicole APRN-BC, 0.5 mg at 04/26/25 0239 naloxone (NARCAN) 0.4 mg/mL injection 0.1-0.4 mg, 0.1-0.4 mg, IV, see admin instructions, Nimisha Nicole APRN-BC sodium chloride flush injection 10 mL, 10 mL, IV, every 12 hours (2 times daily), Nimisha Nicole APRN-RICA, 10 mL at 05/01/25 0944 sodium chloride flush injection 10 mL, 10 mL, IV, see admin instructions, Nimisha Nicole APRN-BC sodium chloride 0.9 % flush bag 25 mL, 25 mL, IV, see admin instructions, Nimisha Nicole APRN-BC dextrose 5 % in water 250 mL flush bag 25 mL, 25 mL, IV, see admin instructions, Nimisha Nicole APRN-BC acetaminophen (TYLENOL) tablet 650 mg, 650 mg, Oral, every 6 hours PRN, Nimisha Nicole APRN-BC ondansetron (ZOFRAN ODT) tablet 4 mg, 4 mg, Oral, every 6 hours PRN, Nimisha Nicole APRN-BC,4 mg at 04/25/25 0731 nicotine (NICODERM CQ) 7 mg/24 hr transdermal patch 1 Patch, 1 Patch, Transdermal, daily, Nimisha Nicole APRN-BC, 1 Patch at 05/01/25 0945 albuterol sulfate 90 mcg/Actuation inhaler 2 Puff, 2 Puff, Inhalation, resp, every 6 hours PRN, Nimisha Nicole APRN-BC ipratropium-albuteroL (DUONEB) 0.5 mg-3 mg(2.5 mg base)/3 mL inhalation solution 3 mL, 3 mL, Inhalation, resp, every 4 hours PRN, Nimisha Nicole APRN-BC heparin injection 5,000 Units, 5,000 Units, subCUT, every 8 hours, Nimisha Nicole APRN-, 5,000 Units at 05/01/25 0422 Primary discharge diagnosis: Secondary spontaneous pneumothorax Other active medical issues also addressed during this admission: Active Hospital Problems Diagnosis Chronic kidney disease, stage IV (severe) (CMS/HCC) Acute respiratory failure with hypoxia (CMS/HCC) Secondary spontaneous pneumothorax Cigarette smoker Elevated serum creatinine Hyperkalemia Resolved Hospital Problems No resolved problems to display. ASSESSMENT AND PLAN: Acute hypoxic respiratory failure secondary to spontaneous pneumothorax secondary to BP fistula Pulmonology following and managing chest tube appreciate recommendations CTS consulted plans for talc pleurodesis today Daily chest x-rays O2 supplementation, wean as tolerated not on oxygen at home Hyperkalemia, resolved CKD stage IIIb Stable continue to monitor Nephrology following appreciate recs DVT prophylaxis: DVT Pharmacologic Prophylaxis: heparin injection 5,000 Units [[id number]] Code status: Full Code Outpatient follow up: PCP pulmonology Anticipated Disposition Location: LTAC vs home Timeframe: Criteria: Improved Patient's understanding of illness: Good Primary family contact: MDM complexity: [] Mild [x] Moderate [] High Shania Posadas MD 05/01/2025, 10:25 AM * Brayden Trammell MD - 04/30/2025 5:45 PM CDT [facility] PROGRESS NOTE Froylan Yan is a 60 y.o. male being seen for pneumothorax Admit Date: 04/24/2025 Subjective: No new complaints Objective: Meds: reviewed BP (!) 154/92 Comment: RN notified Pulse 80 Temp 98 ??F (36.7 ??C) (Temporal) Resp 17 Ht 5'11 (1.803 m) Wt 70.9 kg (156 lb 4.9 oz) SpO2 94% BMI 21.80 kg/m?? Intake/Output Summary (Last 24 hours) at 05/01/2025 0014 Last data filed at 04/30/20251999 Gross per 24 hour Intake 240 ml Output 11 ml Net 229 ml Neuro: Alert awake oriented CV: Regular rate and rhythm Resp: Clear to auscultate bilaterally left-sided pigtail catheter connected to atrium box on suction with end expiratory airleak Ext: No pedal edema Subcutaneous emphysema noted in the left side of chest Labs, micro-results reviewed Imaging-independently reviewed and interpreted by me including chest x-ray from today which shows atrace left basilar pneumothorax Principal Problem: Secondary spontaneous pneumothorax Active Problems: Cigarette smoker Elevated serum creatinine Hyperkalemia Acute respiratory failure with hypoxia (CMS/HCC) Chronic kidney disease, stage IV (severe) (CMS/HCC) Assessment: Secondary spontaneous pneumothorax Bronchopleural fistula Suspected emphysema Current smoker Elevated creatinine Hyperkalemia Plan: -Status post chest tube placement significant improvement in lung expansion there is still leak on deep expiration Mild increase in subcutaneous emphysema around the chest tube site Noted cardiothoracic surgery plan for talc pleurodesis over the weekend Potentially if talc pleurodesis works patient may not need any further interventions Will follow for 1 more day Brayden Trammell MD * Yesenia Iverson RN - 04/30/2025 4:50 PM CDT Report called to RN on 4D. * Shania Posadas MD - 04/30/2025 11:02 AM CDT Images from the original note were not included. Your life is our life's work [facility] Hospitalist/Hospital Medicine Progress Note LOS: 6 days Room/Bed: 6163/01 Patient name: Froylan Yan Date of : 1965 HOSPITAL COURSE SUMMARY: Froylan Yan is a 60-year-old male with a significant history of cigarette smoking, hypertension, CKD who was admitted to [facility] for evaluation and management of spontaneous pneumothorax on 04/24/25. The patient initially presented to an outside emergency department with sudden onset of left-sided chest pain and shortness of breath, where imaging revealed a large left pneumothorax; a pigtail catheter was placed, and the patient was transferred to [facility] for higher-level care, and admitted under hospital medicine. On arrival, Repeat chest xray confirmed improvement in the pneumothorax following chest tube placement. Labs revealed elevated creatinine secondary to CKD with hyperkalemia. Pulmonology was consulted for management and ongoing air leak which was suspected to be due to a small bronchopleural fistula, likely secondary to underlying severe emphysema. This evening 04/25/2025 a rapid response was called for chest pain with increased work of breathing accompanied by increased heart rate and hypertension. A stat x-ray was obtained revealing retracted left pleural pigtail catheter terminating over the left lateral chest wall with increased large leftpneumothorax, partially collapsed left lung. The patient was transferred to ICU for chest tube placement. Current Care Plan Summary 60-year-old male with no known medical history other than smoking admitted from outside facility on04/24/2025 for further management of spontaneous left-sided pneumothorax, pigtail placed at outside facility, admitted under hospital medicine. Today 04/25/2025 a rapid response was called for increasing shortness of breath, chest pain, hypertension, tachycardia, x-ray revealed retracted left pleuralpigtail, large left pneumothorax and partially collapsed left lung. Patient transferred to the ICU for chest tube placement. Chest tube placement per attending, follow-up x-ray pending, repeat x-ray in AM. Pulmonology following. Wean supplemental oxygen as tolerated Elevated creatinine with mild hyperkalemia secondary to CKD ; per patient he has been seen by nephrology prior. 04/26-04/27: Took over patient care today. Patient was initiated on 15 L-> weaned down to 6 L of O2 NC. Post chest tube placement , x-ray showed significant improvement in lung expansion though a small expiratory air leak persisted and subcutaneous emphysema was present but improving Close monitoring of the chest tube and daily chest x-rays ordered daily. Pulmonology still on board Hyperkalemia resolved. Nephrology on board 04/28: Assumed care of patient. Currently on 2 L nasal cannula chest tube in place being managed by pulmonology. Potassium normal today at 4.5 nephrology following 04/29: continue chest tube. 04/30: CTS consulted by Pulm appreciate recs Consultants: IP CONSULT TO PULMONOLOGY IP CONSULT TO NEPHROLOGY SUBJECTIVE: Patient resting in bed no distress. ROS: History obtained from the patient Constitutional: negative for fever, chills, negative for confusion, fatigue Pulmonary: negative for dyspnea, no cough Cardiovascular: negative for chest pain, no palpitations, no orthopnea GI: negative for nausea, vomiting, diarrhea and constipation, no abdominal pain Renal: no dysuria, no hematuria Musculoskeletal: no back pain, no joint pain, no calf swelling Neuro: negative for headache, no vision changes, no dizziness Skin: no skin rash, no redness OBJECTIVE: Temp (24hrs), Av.1 ??F (36.7 ??C), Min:97.7 ??F (36.5 ??C), Max:98.7 ??F (37.1 ??C) BP (!) 148/106 (BP Location: Right arm, Patient Position (BP): Supine) Pulse 93 Temp 97.7 ??F (36.5 ??C) (Temporal) Resp 16 Ht 5' 11 (1.803 m) Wt 70.9 kg (156 lb 4.9 oz) SpO2 93% BMI 21.80 kg/m?? Intake/Output Summary (Last 24 hours) at 04/30/2025 1102 Last data filed at 04/30/2025 1037 Gross per 24 hour Intake 600 ml Output 8 ml Net 592 ml Last documented weight: Weight: 70.9 kg (156 lb 4.9 oz) (04/30/25 0339) EXAM: General: alert, in no distress Neurologic: Grossly normal HEENT: atraumatic, Normocephalic, without obvious abnormality Lungs: normal respiratory effort, chest tube left Heart: normal rate and regular rhythm Abdomen: Soft, non-tender. Bowel sounds normal. No masses, no organomegaly. Extremities: extremities normal, atraumatic, no cyanosis or edema Skin: negative LABORATORY: Recent Labs 04/28/25 0520 WBC 12.0* HGB 14.2 HCT 42.7 PLT 295 Recent Labs 04/28/25 0520 04/29/25 0554 NA 134* 135* K 4.5 4.5 CL 100 100 CO2 19* 23 CA 9.0 9.2 BUN 49* 44* CREAT 1.91* 1.97* GLUCOSE 130* 114* Recent Labs 04/28/25 0520 TOTALPROTEIN 6.6 ALBUMIN 3.7 BILITOTAL 0.3 ALKPHOS 72 AST 31 ALT 29 No results for input(s): INR , PT in the last 72 hours. Invalid input(s): PTT No results for input(s): BASETROP , 2HRTROP , DELTA , 6HRTROP in the last 72 hours. Diagnostic testing reviewed by me: Medications were reviewed by me. Current Facility-Administered Medications: sodium bicarbonate tablet 650 mg, 650 mg, Oral, BID, Liset William DO, 650 mg at 04/30/25 0944 hydrALAZINE (APRESOLINE) 20 mg/mL injection 10 mg, 10 mg, IV, every 6 hours PRN, Nimisha Nicole MAINTENANCE ASSISTANT-BC labetaloL (NORMODYNE;TRANDATE) 5 mg/mL injection 10 mg, 10 mg, IV, every 4 hours PRN, Nimisha Nicole MAINTENANCE ASSISTANT-BC, 10 mg at 04/25/25 0133 umeclidinium (INCRUSE ELLIPTA) 62.5 mcg/actuation inhaler 1 Puff, 1 Puff, Inhalation, resp, daily, Nimisha Nicole APRN-BC, 1 Puff at 04/30/25 0946 dextrose 5 % bolus solution 120 mL, 120 mL, IV, ONE time only, Nimisha Nicole MAINTENANCE ASSISTANT-BC HYDROcodone-acetaminophen (NORCO) 5-325 mg per tablet 1 Tablet, 1 Tablet, Oral, every 4 hours PRN, Nimisha Nicole MAINTENANCE ASSISTANT-BC, 1 Tablet at 04/28/25 0541 HYDROmorphone (PF) (DILAUDID) injection 0.5 mg, 0.5 mg, IV, every 3 hours PRN, Nimisha Nicole MAINTENANCE ASSISTANT-BC, 0.5 mg at 04/26/25 0239 naloxone (NARCAN) 0.4 mg/mL injection 0.1-0.4 mg, 0.1-0.4 mg, IV, see admin instructions, Nimisha Nicole MAINTENANCE ASSISTANT-BC sodium chloride flush injection 10 mL, 10 mL, IV, every 12 hours (2 times daily), Nimisha Nicole APRN-BC, 10 mL at 04/30/25 0945 sodium chloride flush injection 10 mL, 10 mL, IV, see admin instructions, Nimisha Nicole APRN-BC sodium chloride 0.9 % flush bag 25 mL, 25 mL, IV, see admin instructions, Nimisha Nicole APRN-BC dextrose 5 % in water 250 mL flush bag 25 mL, 25 mL, IV, see admin instructions, Nimisha Nicole APRN-BC acetaminophen (TYLENOL) tablet 650 mg, 650 mg, Oral, every 6 hours PRN, Nimisha Nicole APRN-BC ondansetron (ZOFRAN ODT) tablet 4 mg, 4 mg, Oral, every 6 hours PRN, Nimisha Nicole APRN-BC,4 mg at 04/25/25 0731 nicotine (NICODERM CQ) 7 mg/24 hr transdermal patch 1 Patch, 1 Patch, Transdermal, daily, Nimisha Nicole APRN-BC, 1 Patch at 04/30/25 1035 albuterol sulfate 90 mcg/Actuation inhaler 2 Puff, 2 Puff, Inhalation, resp, every 6 hours PRN, Nimisha Nicole APRN-BC ipratropium-albuteroL (DUONEB) 0.5 mg-3 mg(2.5 mg base)/3 mL inhalation solution 3 mL, 3 mL, Inhalation, resp, every 4 hours PRN, Nimisha Nicole APRN-BC heparin injection 5,000 Units, 5,000 Units, subCUT, every 8 hours, Nimisha Nicole APRN-BC, 5,000 Units at 04/30/25 0521 Primary discharge diagnosis: Secondary spontaneous pneumothorax Other active medical issues also addressed during this admission: Active Hospital Problems Diagnosis Chronic kidney disease, stage IV (severe) (CMS/HCC) Acute respiratory failure with hypoxia (CMS/HCC) Secondary spontaneous pneumothorax Cigarette smoker Elevated serum creatinine Hyperkalemia Resolved Hospital Problems No resolved problems to display. ASSESSMENT AND PLAN: Acute hypoxic respiratory failure secondary to spontaneous pneumothorax secondary to BP fistula Pulmonology following and managing chest tube appreciate recommendations CTS consulted appreciate recs Daily chest x-rays O2 supplementation, wean as tolerated not on oxygen at home Hyperkalemia, resolved CKD stage IIIb Stable continue to monitor Nephrology following appreciate recs DVT prophylaxis: DVT Pharmacologic Prophylaxis: heparin injection 5,000 Units [[id number]] Code status: Full Code Outpatient follow up: PCP pulmonology Anticipated Disposition Location: LTAC vs home Timeframe: Criteria: Improved Patient's understanding of illness: Good Primary family contact: MDM complexity: [] Mild [x] Moderate [] High Shania Posadas MD 04/30/2025, 11:02 AM * Brayden Trammell MD - 04/29/2025 6:00 PM CDT [facility] Froylan Yan is a 60 y.o. male being seen for pneumothorax Admit Date: 04/24/2025 Subjective: No new complaints Objective: Meds: reviewed BP (!) 158/91 (BP Location: Right arm, Patient Position (BP): Supine) Pulse 85 Temp 97.9 ??F (36.6 ??C) (Oral) Resp 15 Ht 5' 11 (1.803 m) Wt 75.6 kg (166 lb 10.7 oz) SpO2 97% BMI 23.25 kg/m?? Intake/Output Summary (Last 24 hours) at 04/29/2025 2200 Last data filed at 04/29/2025 1900 Gross per 24 hour Intake 956 ml Output 632 ml Net 324 ml Neuro: Alert awake oriented CV: Regular rate and rhythm Resp: Clear to auscultate bilaterally left-sided pigtail catheter connected to atrium box on suction with end expiratory airleak Ext: No pedal edema Subcutaneous emphysema noted in the left side of chest Labs, micro-results reviewed Imaging-independently reviewed and interpreted by me including chest x-ray from today which shows atrace left basilar pneumothorax Principal Problem: Secondary spontaneous pneumothorax Active Problems: Cigarette smoker Elevated serum creatinine Hyperkalemia Acute respiratory failure with hypoxia (CMS/HCC) Chronic kidney disease, stage IV (severe) (CMS/HCC) Assessment: Secondary spontaneous pneumothorax Bronchopleural fistula Suspected emphysema Current smoker Elevated creatinine Hyperkalemia Plan: -Status post chest tube placement significant improvement in lung expansion there is still leak on deep expiration Mild increase in subcutaneous emphysema around the chest tube site Discussed options again with patient, I will talk to cardiothoracic surgery in a.m. tomorrow if patient can be considered for VATS mechanical pleurodesis If he is not a candidate Then we will need to evaluate for potential endobronchial valve placement early next week -Continue chest tube to suction - Daily chest x-rays ordered - Will follow Brayden Trammell MD * Shania Posadas MD - 04/29/2025 10:30 AM CDT Images from the original note were not included. Your life is our life's work [facility] Hospitalist/Hospital Medicine Progress Note LOS: 5 days Room/Bed: 6163/01 Patient name: Froylan Yan Date of : 1965 HOSPITAL COURSE SUMMARY: Froylan Yan is a 60-year-old male with a significant history of cigarette smoking, hypertension, CKD who was admitted to [facility] for evaluation and management of spontaneous pneumothorax on 04/24/25. The patient initially presented to an outside emergency department with sudden onset of left-sided chest pain and shortness of breath, where imaging revealed a large left pneumothorax; a pigtail catheter was placed, and the patient was transferred to [facility] for higher-level care, and admitted under hospital medicine. On arrival, Repeat chest xray confirmed improvement in the pneumothorax following chest tube placement. Labs revealed elevated creatinine secondary to CKD with hyperkalemia. Pulmonology was consulted for management and ongoing air leak which was suspected to be due to a small bronchopleural fistula, likely secondary to underlying severe emphysema. This evening 04/25/2025 a rapid response was called for chest pain with increased work of breathing accompanied by increased heart rate and hypertension. A stat x-ray was obtained revealing retracted left pleural pigtail catheter terminating over the left lateral chest wall with increased large leftpneumothorax, partially collapsed left lung. The patient was transferred to ICU for chest tube placement. Current Care Plan Summary 60-year-old male with no known medical history other than smoking admitted from outside facility on04/24/2025 for further management of spontaneous left-sided pneumothorax, pigtail placed at outside facility, admitted under hospital medicine. Today 04/25/2025 a rapid response was called for increasing shortness of breath, chest pain, hypertension, tachycardia, x-ray revealed retracted left pleuralpigtail, large left pneumothorax and partially collapsed left lung. Patient transferred to the ICU for chest tube placement. Chest tube placement per attending, follow-up x-ray pending, repeat x-ray in AM. Pulmonology following. Wean supplemental oxygen as tolerated Elevated creatinine with mild hyperkalemia secondary to CKD ; per patient he has been seen by nephrology prior. 04/26-04/27: Took over patient care today. Patient was initiated on 15 L-> weaned down to 6 L of O2 NC. Post chest tube placement , x-ray showed significant improvement in lung expansion though a small expiratory air leak persisted and subcutaneous emphysema was present but improving Close monitoring of the chest tube and daily chest x-rays ordered daily. Pulmonology still on board Hyperkalemia resolved. Nephrology on board 04/28: Assumed care of patient. Currently on 2 L nasal cannula chest tube in place being managed by pulmonology. Potassium normal today at 4.5 nephrology following 04/29: continue chest tube. Consultants: IP CONSULT TO PULMONOLOGY IP CONSULT TO NEPHROLOGY SUBJECTIVE: Patient resting in no distress. ROS: History obtained from the patient Constitutional: negative for fever, chills, negative for confusion, fatigue Pulmonary: negative for dyspnea, no cough Cardiovascular: negative for chest pain, no palpitations, no orthopnea GI: negative for nausea, vomiting, diarrhea and constipation, no abdominal pain Renal: no dysuria, no hematuria Musculoskeletal: no back pain, no joint pain, no calf swelling Neuro: negative for headache, no vision changes, no dizziness Skin: no skin rash, no redness OBJECTIVE: Temp (24hrs), Av.8 ??F (36.6 ??C), Min:97.3 ??F (36.3 ??C), Max:98.2 ??F (36.8 ??C) BP (!) 145/84 (BP Location: Right arm, Patient Position (BP): Sitting) Pulse (!) 101 Temp 97.3 ??F (36.3 ??C) (Oral) Resp 18 Ht 5' 11 (1.803 m) Wt 75.6 kg (166 lb 10.7 oz) SpO2 97% BMI23.25 kg/m?? Intake/Output Summary (Last 24 hours) at 04/29/2025 1030 Last data filed at 04/29/2025 0900 Gross per 24 hour Intake 956 ml Output 644 ml Net 312 ml Last documented weight: Weight: 75.6 kg (166 lb 10.7 oz) (04/24/25 1522) EXAM: General: alert, in no distress Neurologic: Grossly normal HEENT: atraumatic, Normocephalic, without obvious abnormality Lungs: normal respiratory effort, chest tube left Heart: normal rate and regular rhythm Abdomen: Soft, non-tender. Bowel sounds normal. No masses, no organomegaly. Extremities: extremities normal, atraumatic, no cyanosis or edema Skin: negative LABORATORY: Recent Labs 04/27/25 0414 04/28/25 0520 WBC 12.8* 12.0* HGB 14.2 14.2 HCT 42.4 42.7 PLT 270 295 Recent Labs 04/27/25 0414 04/28/25 0520 04/29/25 0554 NA 134* 134* 135* K 4.7 4.5 4.5 CL 102 100 100 CO2 20* 19* 23 CA 9.3 9.0 9.2 BUN 51* 49* 44* CREAT 2.16* 1.91* 1.97* GLUCOSE 121* 130* 114* Recent Labs 04/27/25 0414 04/28/25 0520 TOTALPROTEIN 6.4 6.6 ALBUMIN 3.6 3.7 BILITOTAL 0.4 0.3 ALKPHOS 70 72 AST 26 31 ALT 25 29 No results for input(s): INR , PT in the last 72 hours. Invalid input(s): PTT No results for input(s): BASETROP , 2HRTROP , DELTA , 6HRTROP in the last 72 hours. Diagnostic testing reviewed by me: Medications were reviewed by me. Current Facility-Administered Medications: sodium bicarbonate tablet 650 mg, 650 mg, Oral, BID, Liset William DO, 650 mg at 04/29/25 0950 hydrALAZINE (APRESOLINE) 20 mg/mL injection 10 mg, 10 mg, IV, every 6 hours PRN, Nimisha Nicole APRN-BC labetaloL (NORMODYNE;TRANDATE) 5 mg/mL injection 10 mg, 10 mg, IV, every 4 hours PRN, Nimisha Nicole APRN-RICA, 10 mg at 04/25/25 0133 umeclidinium (INCRUSE ELLIPTA) 62.5 mcg/actuation inhaler 1 Puff, 1 Puff, Inhalation, resp, daily, Nimisha Nicole APRN-BC, 1 Puff at 04/29/25 0955 dextrose 5 % bolus solution 120 mL, 120 mL, IV, ONE time only, Nimisha Nicole APRN-BC HYDROcodone-acetaminophen (NORCO) 5-325 mg per tablet 1 Tablet, 1 Tablet, Oral, every 4 hours PRN, Nimisha Nicole APRN-BC, 1 Tablet at 04/28/25 0541 HYDROmorphone (PF) (DILAUDID) injection 0.5 mg, 0.5 mg, IV, every 3 hours PRN, Nimisha Nicole APRN-BC, 0.5 mg at 04/26/25 0239 naloxone (NARCAN) 0.4 mg/mL injection 0.1-0.4 mg, 0.1-0.4 mg, IV, see admin instructions, Nimisha Nicole APRN-BC sodium chloride flush injection 10 mL, 10 mL, IV, every 12 hours (2 times daily), Nimisha Nicole APRN-BC, 10 mL at 04/29/25 0958 sodium chloride flush injection 10 mL, 10 mL, IV, see admin instructions, Nimisha Nicole APRN-BC sodium chloride 0.9 % flush bag 25 mL, 25 mL, IV, see admin instructions, Nimisha Nicole APRN-BC dextrose 5 % in water 250 mL flush bag 25 mL, 25 mL, IV, see admin instructions, Nimisha Nicole APRN-BC acetaminophen (TYLENOL) tablet 650 mg, 650 mg, Oral, every 6 hours PRN, Nimisha Nicole APRN-BC ondansetron (ZOFRAN ODT) tablet 4 mg, 4 mg, Oral, every 6 hours PRN, Nimisha Nicole APRN-BC,4 mg at 04/25/25 0731 nicotine (NICODERM CQ) 7 mg/24 hr transdermal patch 1 Patch, 1 Patch, Transdermal, daily, Nimisha Nicole APRN-BC, 1 Patch at 04/29/25 0951 albuterol sulfate 90 mcg/Actuation inhaler 2 Puff, 2 Puff, Inhalation, resp, every 6 hours PRN, Nimisha Nicole APRN-BC ipratropium-albuteroL (DUONEB) 0.5 mg-3 mg(2.5 mg base)/3 mL inhalation solution 3 mL, 3 mL, Inhalation, resp, every 4 hours PRN, Nimisha Nicole APRN-BC heparin injection 5,000 Units, 5,000 Units, subCUT, every 8 hours, Nimisha Nicole APRN-BC, 5,000 Units at 04/29/25 0433 Primary discharge diagnosis: Secondary spontaneous pneumothorax Other active medical issues also addressed during this admission: Active Hospital Problems Diagnosis Chronic kidney disease, stage IV (severe) (CMS/HCC) Acute respiratory failure with hypoxia (CMS/HCC) Secondary spontaneous pneumothorax Cigarette smoker Elevated serum creatinine Hyperkalemia Resolved Hospital Problems No resolved problems to display. ASSESSMENT AND PLAN: Acute hypoxic respiratory failure secondary to spontaneous pneumothorax secondary to BP fistula Pulmonology following and managing chest tube appreciate recommendations Daily chest x-rays O2 supplementation, wean as tolerated not on oxygen at home Hyperkalemia, resolved CKD stage IIIb Potassium normal today at 4.5 creatinine stable Nephrology following appreciate recs DVT prophylaxis: DVT Pharmacologic Prophylaxis: heparin injection 5,000 Units [[id number]] Code status: Full Code Outpatient follow up: PCP pulmonology Anticipated Disposition Location: LTAC vs home Timeframe: Criteria: Improved Patient's understanding of illness: Good Primary family contact: MDM complexity: [] Mild [x] Moderate [] High Shania Posadas MD 04/29/2025, 10:30 AM * Liset William DO - 04/29/2025 8:14 AM CDT Nephrology Progress Note Admit Date: 04/24/2025 Pt admitted with sob and ptx Subjective: Patient is being seen for ckd 4. Events from last 24 hours: chart reviewed no new issues. Meds,labs, vitals, events of last 24 hours and problem list reviewed. Physical Exam: BP (!) 151/87 (BP Location: Left arm, Patient Position (BP): Supine) Comment: nurse notifeid Pulse 95 Temp 98.2 ??F (36.8 ??C) (Temporal) Resp 16 Ht 5' 11 (1.803 m) Wt 75.6 kg (166 lb 10.7oz) SpO2 97% BMI 23.25 kg/m?? Intake/Output Summary (Last 24 hours) at 04/29/2025 0814 Last data filed at 04/29/2025 0600 Gross per 24 hour Intake 600 ml Output 644 ml Net -44 ml General appearance: in no distress Lungs: clear to auscultation bilaterally, normal respiratory effort Heart: regular rate and rhythm, S1, S2 normal, no murmur, click, rub or gallop Abdomen: Soft, non tender, non distended Extremities: intact distal pulses, moves all extremities equally, no edema, redness or tenderness in the calves or thighs Labs: Lab Results Component Value Date WBC 12.0 (H) 04/28/2025 HGB 14.2 04/28/2025 HGBPOC 15.7 04/25/2025 HCT 42.7 04/28/2025 HCTPOC 47 04/25/2025 PLT 295 04/28/2025 MCV 88.8 04/28/2025 Lab Results Component Value Date NA 135 (L) 04/29/2025 K 4.5 04/29/2025 CL 100 04/29/2025 CO2 23 04/29/2025 CA 9.2 04/29/2025 BUN 44 (H) 04/29/2025 CREAT 1.97 (H) 04/29/2025 GLUCOSE 114 (H) 04/29/2025 ANIONGAP 12 04/29/2025 AssessmentPlan: 1.ckd 4- renal function is stable -will sign off -he needs follow up in 3 mo in our [place] clinic with Dr Jeb William DO * Shania Posadas MD - 04/28/2025 4:42 PM CDT Images from the original note were not included. Your life is our life's work [facility] Hospitalist/Hospital Medicine Progress Note LOS: 4 days Room/Bed: 6163/01 Patient name: Froylan Yan Date of : 1965 HOSPITAL COURSE SUMMARY: Froylan Yan is a 60-year-old male with a significant history of cigarette smoking, hypertension, CKD who was admitted to [facility] for evaluation and management of spontaneous pneumothorax on 04/24/25. The patient initially presented to an outside emergency department with sudden onset of left-sided chest pain and shortness of breath, where imaging revealed a large left pneumothorax; a pigtail catheter was placed, and the patient was transferred to [facility] for higher-level care, and admitted under hospital medicine. On arrival, Repeat chest xray confirmed improvement in the pneumothorax following chest tube placement. Labs revealed elevated creatinine secondary to CKD with hyperkalemia. Pulmonology was consulted for management and ongoing air leak which was suspected to be due to a small bronchopleural fistula, likely secondary to underlying severe emphysema. This evening 04/25/2025 a rapid response was called for chest pain with increased work of breathing accompanied by increased heart rate and hypertension. A stat x-ray was obtained revealing retracted left pleural pigtail catheter terminating over the left lateral chest wall with increased large leftpneumothorax, partially collapsed left lung. The patient was transferred to ICU for chest tube placement. Current Care Plan Summary 60-year-old male with no known medical history other than smoking admitted from outside facility on04/24/2025 for further management of spontaneous left-sided pneumothorax, pigtail placed at outside facility, admitted under hospital medicine. Today 04/25/2025 a rapid response was called for increasing shortness of breath, chest pain, hypertension, tachycardia, x-ray revealed retracted left pleuralpigtail, large left pneumothorax and partially collapsed left lung. Patient transferred to the ICU for chest tube placement. Chest tube placement per attending, follow-up x-ray pending, repeat x-ray in AM. Pulmonology following. Wean supplemental oxygen as tolerated Elevated creatinine with mild hyperkalemia secondary to CKD ; per patient he has been seen by nephrology prior. 04/26-04/27: Took over patient care today. Patient was initiated on 15 L-> weaned down to 6 L of O2 NC. Post chest tube placement , x-ray showed significant improvement in lung expansion though a small expiratory air leak persisted and subcutaneous emphysema was present but improving Close monitoring of the chest tube and daily chest x-rays ordered daily. Pulmonology still on board Hyperkalemia resolved. Nephrology on board 04/28: Assumed care of patient. Currently on 2 L nasal cannula chest tube in place being managed by pulmonology. Potassium normal today at 4.5 nephrology following Consultants: IP CONSULT TO PULMONOLOGY IP CONSULT TO NEPHROLOGY SUBJECTIVE: Patient resting in bed denies any shortness of breath ROS: History obtained from the patient Constitutional: negative for fever, chills, negative for confusion, fatigue Pulmonary: negative for dyspnea, no cough Cardiovascular: negative for chest pain, no palpitations, no orthopnea GI: negative for nausea, vomiting, diarrhea and constipation, no abdominal pain Renal: no dysuria, no hematuria Musculoskeletal: no back pain, no joint pain, no calf swelling Neuro: negative for headache, no vision changes, no dizziness Skin: no skin rash, no redness OBJECTIVE: Temp (24hrs), Av.8 ??F (36.6 ??C), Min:96.7 ??F (35.9 ??C), Max:98.5 ??F (36.9 ??C) BP (!) 149/87 (BP Location: Right arm, Patient Position (BP): Supine) Pulse 82 Temp 97.4 ??F (36.3 ??C) (Temporal) Resp 18 Ht 5' 11 (1.803 m) Wt 75.6 kg (166 lb 10.7 oz) SpO2 91% BMI 23.25 kg/m?? Intake/Output Summary (Last 24 hours) at 04/28/2025 1642 Last data filed at 04/28/2025 0958 Gross per 24 hour Intake 240 ml Output 720 ml Net -480 ml Last documented weight: Weight: 75.6 kg (166 lb 10.7 oz) (04/24/25 1522) EXAM: General: alert, in no distress Neurologic: Grossly normal HEENT: atraumatic, Normocephalic, without obvious abnormality Lungs: normal respiratory effort, chest tube left Heart: normal rate and regular rhythm Abdomen: Soft, non-tender. Bowel sounds normal. No masses, no organomegaly. Extremities: extremities normal, atraumatic, no cyanosis or edema Skin: negative LABORATORY: Recent Labs 04/26/25 0516 04/27/2541304/28/25 0520 WBC 13.5* 12.8* 12.0* HGB 15.5 14.2 14.2 HCT 47.8 42.4 42.7 PLT 273 270 295 Recent Labs 04/25/25 1747 04/26/25 0516 04/27/2541304/28/25 0520 NA 132* 133* 134* 134* K 5.4* 5.5* 4.7 4.5 CL 98 99 102 100 CO2 18* 20* 20* 19* CA 9.0 9.3 9.3 9.0 BUN 53* 52* 51* 49* CREAT 2.46* 2.49* 2.16* 1.91* GLUCOSE 108* 115* 121* 130* Recent Labs 04/27/2541304/28/25 0520 TOTALPROTEIN 6.4 6.6 ALBUMIN 3.6 3.7 BILITOTAL 0.4 0.3 ALKPHOS 70 72 AST 26 31 ALT 25 29 No results for input(s): INR , PT in the last 72 hours. Invalid input(s): PTT No results for input(s): BASETROP , 2HRTROP , DELTA , 6HRTROP in the last 72 hours. Diagnostic testing reviewed by me: Medications were reviewed by me. Current Facility-Administered Medications: sodium bicarbonate tablet 650 mg, 650 mg, Oral, BID, Liset William DO, 650 mg at 04/28/25 0817 hydrALAZINE (APRESOLINE) 20 mg/mL injection 10 mg, 10 mg, IV, every 6 hours PRN, Nimisha Nicole APRN-BC labetaloL (NORMODYNE;TRANDATE) 5 mg/mL injection 10 mg, 10 mg, IV, every 4 hours PRN, Nimisha Nicole APRN-RICA, 10 mg at 04/25/25 0133 umeclidinium (INCRUSE ELLIPTA) 62.5 mcg/actuation inhaler 1 Puff, 1 Puff, Inhalation, resp, daily, Nimisha Nicole APRN-BC, 1 Puff at 04/28/25 0816 dextrose 5 % bolus solution 120 mL, 120 mL, IV, ONE time only, Nimisha Nicole APRN-BC HYDROcodone-acetaminophen (NORCO) 5-325 mg per tablet 1 Tablet, 1 Tablet, Oral, every 4 hours PRN, Nimisha Nicole APRN-BC, 1 Tablet at 04/28/25 0541 HYDROmorphone (PF) (DILAUDID) injection 0.5 mg, 0.5 mg, IV, every 3 hours PRN, Nimisha Nicole APRN-BC, 0.5 mg at 04/26/25 0239 naloxone (NARCAN) 0.4 mg/mL injection 0.1-0.4 mg, 0.1-0.4 mg, IV, see admin instructions, Nimisha Nicole APRN-BC sodium chloride flush injection 10 mL, 10 mL, IV, every 12 hours (2 times daily), Nimisha Nicole APRN-BC, 10 mL at 04/28/25 0820 sodium chloride flush injection 10 mL, 10 mL, IV, see admin instructions, Nimisha Nicole APRN-RICA sodium chloride 0.9 % flush bag 25 mL, 25 mL, IV, see admin instructions, Nimisha Nicole APRN-BC dextrose 5 % in water 250 mL flush bag 25 mL, 25 mL, IV, see admin instructions, Nimisha Nicole APRN-BC acetaminophen (TYLENOL) tablet 650 mg, 650 mg, Oral, every 6 hours PRN, Nimisha Nicole APRN-BC ondansetron (ZOFRAN ODT) tablet 4 mg, 4 mg, Oral, every 6 hours PRN, Nimisha Nicole APRN-BC,4 mg at 04/25/25 0731 nicotine (NICODERM CQ) 7 mg/24 hr transdermal patch 1 Patch, 1 Patch, Transdermal, daily, Nimisha Nicole APRN-BC, 1 Patch at 04/28/25 0817 albuterol sulfate 90 mcg/Actuation inhaler 2 Puff, 2 Puff, Inhalation, resp, every 6 hours PRN, Nimisha Nicole APRN-BC ipratropium-albuteroL (DUONEB) 0.5 mg-3 mg(2.5 mg base)/3 mL inhalation solution 3 mL, 3 mL, Inhalation, resp, every 4 hours PRN, Nimisha Nicole APRN-BC heparin injection 5,000 Units, 5,000 Units, subCUT, every 8 hours, Nimisha Nicole APRN-BC, 5,000 Units at 04/28/25 1307 Primary discharge diagnosis: Secondary spontaneous pneumothorax Other active medical issues also addressed during this admission: Active Hospital Problems Diagnosis Chronic kidney disease, stage IV (severe) (CMS/HCC) Acute respiratory failure with hypoxia (CMS/HCC) Secondary spontaneous pneumothorax Cigarette smoker Elevated serum creatinine Hyperkalemia Resolved Hospital Problems No resolved problems to display. ASSESSMENT AND PLAN: Acute hypoxic respiratory failure secondary to spontaneous pneumothorax secondary to BP fistula Pulmonology following and managing chest tube appreciate recommendations Daily chest x-rays O2 supplementation, wean as tolerated not on oxygen at home Hyperkalemia, resolved CKD stage IIIb Potassium normal today at 4.5 creatinine improved to 1.91 Nephrology following appreciate recs DVT prophylaxis: DVT Pharmacologic Prophylaxis: heparin injection 5,000 Units [[id number]] Code status: Full Code Outpatient follow up: PCP pulmonology Anticipated Disposition Location: LTAC Timeframe: Criteria: Improved Patient's understanding of illness: Good Primary family contact: MDM complexity: [] Mild [x] Moderate [] High Shania Posadas MD 04/28/2025, 4:42 PM * Brayden Trammell MD - 04/28/2025 10:00 AM CDT [facility] Froylan Yan is a 60 y.o. male being seen for pneumothorax Admit Date: 04/24/2025 Subjective: No new complaints Objective: Meds: reviewed BP (!) 149/98 (BP Location: Right arm, Patient Position (BP): Supine) Pulse 91 Temp 98.1 ??F (36.7 ??C) (Temporal) Resp 13 Ht 5' 11 (1.803 m) Wt 75.6 kg (166 lb 10.7 oz) SpO2 96% BMI 23.25 kg/m?? Intake/Output Summary (Last 24 hours) at 04/28/2025 2220 Last data filed at 04/28/2025 1515 Gross per 24 hour Intake 600 ml Output 418 ml Net 182 ml Neuro: Alert awake oriented CV: Regular rate and rhythm Resp: Clear to auscultate bilaterally left-sided pigtail catheter connected to atrium box on suction with mild end expiratory airleak Ext: No pedal edema Subcutaneous emphysema noted in the left side of the face left side of the neck and left upper chest compared to yesterday is improved Labs, micro-results reviewed Imaging-independently reviewed and interpreted by me including chest x-ray from today which shows atrace left basilar pneumothorax Principal Problem: Secondary spontaneous pneumothorax Active Problems: Cigarette smoker Elevated serum creatinine Hyperkalemia Acute respiratory failure with hypoxia (CMS/HCC) Chronic kidney disease, stage IV (severe) (CMS/HCC) Assessment: Secondary spontaneous pneumothorax Bronchopleural fistula Suspected emphysema Current smoker Elevated creatinine Hyperkalemia Plan: -Status post chest tube placement significant improvement in lung expansion there is still leak on deep expiration -Continue chest tube to suction - Daily chest x-rays ordered - Will follow Brayden Trammell MD * Liset William DO - 04/28/2025 7:17 AM CDT Nephrology Progress Note Admit Date: 04/24/2025 Subjective: Patient is being seen for ckd Chief complaint feels ok Events from last 24 hours: chart reviewed Meds,labs, vitals, events of last 24 hours and problem list reviewed. Physical Exam: BP 129/86 (BP Location: Left arm, Patient Position (BP): Supine) Pulse 89 Temp 98.5 ??F (36.9 ??C) (Temporal) Resp 13 Ht 5' 11 (1.803 m) Wt 75.6 kg (166 lb 10.7 oz) SpO2 96% BMI 23.25 kg/m?? Intake/Output Summary (Last 24 hours) at 04/28/2025 0717 Last data filed at 04/27/2025 1921 Gross per 24 hour Intake 1080 ml Output 1020 ml Net 60 ml General appearance: alert, in no distress Lungs: clear to auscultation bilaterally, normal respiratory effort Heart: regular rate and rhythm, S1, S2 normal, no murmur, click, rub or gallop Abdomen: Soft, non tender, non distended Extremities: intact distal pulses, moves all extremities equally, no edema, redness or tenderness in the calves or thighs Labs: Lab Results Component Value Date WBC 12.0 (H) 04/28/2025 HGB 14.2 04/28/2025 HGBPOC 15.7 04/25/2025 HCT 42.7 04/28/2025 HCTPOC 47 04/25/2025 PLT 295 04/28/2025 MCV 88.8 04/28/2025 Lab Results Component Value Date NA 134 (L) 04/28/2025 K 4.5 04/28/2025 CL 100 04/28/2025 CO2 19 (L) 04/28/2025 CA 9.0 04/28/2025 BUN 49 (H) 04/28/2025 CREAT 1.91 (H) 04/28/2025 GLUCOSE 130 (H) 04/28/2025 ANIONGAP 15 04/28/2025 AssessmentPlan: CKD 4 renal function improved, -avoid nephrotoxins -daily labs -has not had gfr this high for months -may reclassify as ckd 3b 2. Acidosis- not at goal - continue bicarb Liset William DO * Edwin Beauchamp MD - 04/27/2025 8:01 PM CDT Images from the original note were not included. Your life is our life's work [facility] Hospitalist/Hospital Medicine Progress Note LOS: 3 days Room/Bed: [facility]/ Patient name: Froylan Yan Date of : 1965 HOSPITAL COURSE SUMMARY: Froylan Yan is a 60-year-old male with a significant history of cigarette smoking, hypertension, CKD who was admitted to [facility] for evaluation and management of spontaneous pneumothorax on 04/24/25. The patient initially presented to an outside emergency department with sudden onset of left-sided chest pain and shortness of breath, where imaging revealed a large left pneumothorax; a pigtail catheter was placed, and the patient was transferred to [facility] for higher-level care, and admitted under hospital medicine. On arrival, Repeat chest xray confirmed improvement in the pneumothorax following chest tube placement. Labs revealed elevated creatinine secondary to CKD with hyperkalemia. Pulmonology was consulted for management and ongoing air leak which was suspected to be due to a small bronchopleural fistula, likely secondary to underlying severe emphysema. This evening 04/25/2025 a rapid response was called for chest pain with increased work of breathing accompanied by increased heart rate and hypertension. A stat x-ray was obtained revealing retracted left pleural pigtail catheter terminating over the left lateral chest wall with increased large leftpneumothorax, partially collapsed left lung. The patient was transferred to ICU for chest tube placement. Pertinent PMHx: No past medical history on file. Current Care Plan Summary 60-year-old male with no known medical history other than smoking admitted from outside facility on04/24/2025 for further management of spontaneous left-sided pneumothorax, pigtail placed at outside facility, admitted under hospital medicine. Today 04/25/2025 a rapid response was called for increasing shortness of breath, chest pain, hypertension, tachycardia, x-ray revealed retracted left pleuralpigtail, large left pneumothorax and partially collapsed left lung. Patient transferred to the ICU for chest tube placement. Chest tube placement per attending, follow-up x-ray pending, repeat x-ray in AM. Pulmonology following. Wean supplemental oxygen as tolerated Elevated creatinine with mild hyperkalemia secondary to CKD ; per patient he has been seen by nephrology prior. 04/26-04/27: Took over patient care today. Patient was initiated on 15 L-> weaned down to 6 L of O2 NC. Post chest tube placement , x-ray showed significant improvement in lung expansion though a small expiratory air leak persisted and subcutaneous emphysema was present but improving Close monitoring of the chest tube and daily chest x-rays ordered daily. Pulmonology still on board Hyperkalemia resolved. Nephrology on board Consultants: IP CONSULT TO PULMONOLOGY IP CONSULT TO NEPHROLOGY SUBJECTIVE: Patient doing well, denies any complaints ROS: 12 ROS -ve except as stated as above OBJECTIVE: Temp (24hrs), Av.5 ??F (36.4 ??C), Min:96.7 ??F (35.9 ??C), Max:98.2 ??F (36.8 ??C) BP (!) 141/92 (BP Location: Left arm, Patient Position (BP): Supine) Pulse 88 Temp 98.2 ??F (36.8 ??C) (Temporal) Resp 15 Ht 5' 11 (1.803 m) Wt 75.6 kg (166 lb 10.7 oz) SpO2 96% BMI 23.25 kg/m?? Intake/Output Summary (Last 24 hours) at 04/27/2025 2155 Last data filed at 04/27/2025 1921 Gross per 24 hour Intake 1080 ml Output 1189 ml Net -109 ml Last documented weight: Weight: 75.6 kg (166 lb 10.7 oz) (04/24/25 1522) EXAM: General: alert, in no distress Neurologic: Grossly normal HEENT: atraumatic, Normocephalic, without obvious abnormality Lungs: clear to auscultation bilaterally, normal respiratory effort Heart: normal rate, regular rhythm, normal S1, S2, no murmurs, rubs, clicks or gallops Abdomen: Soft, non-tender. Bowel sounds normal. No masses, no organomegaly. Extremities: extremities normal, atraumatic, no cyanosis or edema, intact distal pulses, moves all extremities equally, no edema, redness or tenderness in the calves or thighs, normal strength, normal tone Skin: negative LABORATORY: Recent Labs 04/25/25 0527 04/26/25 0516 04/27/25 0414 WBC 16.8* 13.5* 12.8* HGB 14.5 15.5 14.2 HCT 43.9 47.8 42.4 PLT 289 273 270 Recent Labs 04/25/25 0527 04/25/25 1111 04/25/25 1747 04/26/25 0516 04/27/25 0414 NA 132* 131* 132* 133* 134* K 6.2* 5.4* 5.4* 5.5* 4.7 CL 98 98 98 99 102 CO2 19* 17* 18* 20* 20* CA 9.4 9.1 9.0 9.3 9.3 BUN 47* 51* 53* 52* 51* CREAT 2.44* 2.54* 2.46* 2.49* 2.16* GLUCOSE 124* 111* 108* 115* 121* Recent Labs 04/25/2527 04/27/25 0414 TOTALPROTEIN 7.1 6.4 ALBUMIN 4.0 3.6 BILITOTAL 0.3 0.4 ALKPHOS 87 70 AST 49 26 ALT 38 25 No results for input(s): INR , PT in the last 72 hours. Invalid input(s): PTT Recent Labs 04/24/25 2334 04/25/25526 2HRTROP 22* -- DELTA 2 8 6HRTROP -- 28* Diagnostic testing reviewed by me: Medications were reviewed by me. Current Facility-Administered Medications: sodium bicarbonate tablet 650 mg, 650 mg, Oral, BID, Liset William DO, 650 mg at 04/27/25 2154 hydrALAZINE (APRESOLINE) 20 mg/mL injection 10 mg, 10 mg, IV, every 6 hours PRN, Nimisha Nicole, MAINTENANCE ASSISTANT-BC labetaloL (NORMODYNE;TRANDATE) 5 mg/mL injection 10 mg, 10 mg, IV, every 4 hours PRN, Nimisha Nicole, MAINTENANCE ASSISTANT-BC, 10 mg at 04/25/25 0133 umeclidinium (INCRUSE ELLIPTA) 62.5 mcg/actuation inhaler 1 Puff, 1 Puff, Inhalation, resp, daily, Nimisha Nicole APRN-BC, 1 Puff at 04/27/25 0816 dextrose 5 % bolus solution 120 mL, 120 mL, IV, ONE time only, Nimisha Nicole APRN-BC HYDROcodone-acetaminophen (NORCO) 5-325 mg per tablet 1 Tablet, 1 Tablet, Oral, every 4 hours PRN, Nimisha Nicole APRN-BC, 1 Tablet at 04/27/25 0454 HYDROmorphone (PF) (DILAUDID) injection 0.5 mg, 0.5 mg, IV, every 3 hours PRN, Nimisha Nicole APRN-BC, 0.5 mg at 04/26/25 0239 naloxone (NARCAN) 0.4 mg/mL injection 0.1-0.4 mg, 0.1-0.4 mg, IV, see admin instructions, Nimisha Nicole APRN-BC sodium chloride flush injection 10 mL, 10 mL, IV, every 12 hours (2 times daily), Nimisha Nicole APRN-BC, 10 mL at 04/27/25 2154 sodium chloride flush injection 10 mL, 10 mL, IV, see admin instructions, Nimisha Nicole APRN-BC sodium chloride 0.9 % flush bag 25 mL, 25 mL, IV, see admin instructions, Nimisha Nicole APRN-BC dextrose 5 % in water 250 mL flush bag 25 mL, 25 mL, IV, see admin instructions, Nimisha Nicole APRN-BC acetaminophen (TYLENOL) tablet 650 mg, 650 mg, Oral, every 6 hours PRN, Nimisha Nicole APRN-BC ondansetron (ZOFRAN ODT) tablet 4 mg, 4 mg, Oral, every 6 hours PRN, Nimisha Nicole APRN-BC,4 mg at 04/25/25 0731 nicotine (NICODERM CQ) 7 mg/24 hr transdermal patch 1 Patch, 1 Patch, Transdermal, daily, Nimisha Nicoel APRN-BC, 1 Patch at 04/27/25 0816 albuterol sulfate 90 mcg/Actuation inhaler 2 Puff, 2 Puff, Inhalation, resp, every 6 hours PRN, Nimisha Nicole APRN-BC ipratropium-albuteroL (DUONEB) 0.5 mg-3 mg(2.5 mg base)/3 mL inhalation solution 3 mL, 3 mL, Inhalation, resp, every 4 hours PRN, Nimisha Nicole APRN-BC heparin injection 5,000 Units, 5,000 Units, subCUT, every 8 hours, Nimisha Nicole APRN-BC, 5,000 Units at 04/27/25 4874 Primary discharge diagnosis: Secondary spontaneous pneumothorax Other active medical issues also addressed during this admission: Active Hospital Problems Diagnosis Chronic kidney disease, stage IV (severe) (CMS/[facility]) Acute respiratory failure with hypoxia (CMS/[facility]) Secondary spontaneous pneumothorax Cigarette smoker Elevated serum creatinine Hyperkalemia Resolved Hospital Problems No resolved problems to display. ASSESSMENT AND PLAN: Acute hypoxic respiratory failure Secondary Spontaneous Pneumothorax Patient on room air at baseline Patient initially presented with left-sided chest pain and shortness of breath Imaging at outside facility showed large left pneumothorax-where a pigtail catheter was placed prior to transfer Patient is a chronic smoker Upon admission, patient had persistent airleak, which was initially managed with continuous suction During hospitalization, the initial chest tube became dislodged resulting in rapid development of subcutaneous emphysema and recurrent large pneumothorax with partial lung collapse Patient was transferred to ICU and emergent repeat chest tube was placed Postprocedure x-ray showed significant improvement in lung expansion though a small expiratory air leak persisted and subcutaneous emphysema was present but improving Pulmonology on board Close monitoring of the chest tube and daily chest x-rays ordered Patient was initially on 15 L-> currently on 5 L, weaning down as tolerated Continue to monitor patient Hyperkalemia-resolving Chronic kidney disease stage IV Mild hyperkalemia was present on admission (K 5.7 ), attributed to CKD and prior lisinopril use. Nephrology consulted Hyperkalemia was managed medically and trended down, Dietary potassium restriction and avoidance of aldactone and JEANNA inhibitors were recommended. He developed mild metabolic acidosis for which bicarbonate was added Continue to monitor patient Nutrition Status: Provider Assessment/Plan: Symptoms/Signs/Physical Exam: Muscle Wasting and Subcutaneous Fat Loss Etiology: Cancer and Alcohol abuse Nutrition Treatment Plan: - Current Diet and/or Nutritional Supplementation ordered: DIET POTASSIUM CONTROL - Daily weights Impact of Malnutrition on patient condition and outcomes: Delayed recovery and Increased muscle weakness and fall risk DVT prophylaxis: DVT Pharmacologic Prophylaxis: heparin injection 5,000 Units [[id number]] Code status: Full Code Outpatient follow up: PCP Anticipated Disposition Location: Timeframe: 04/30/2025 Criteria: MDM complexity: [] Mild [x] Moderate [] High Edwin Beauchamp MD 04/27/2025, 9:55 PM * Brayden Trammell MD - 04/27/2025 5:45 PM CDT [facility] Froylan Yan is a 60 y.o. male being seen for pneumothorax Admit Date: 04/24/2025 Subjective: No new complaints Objective: Meds: reviewed BP (!) 141/92 (BP Location: Left arm, Patient Position (BP): Supine) Pulse 88 Temp 98.2 ??F (36.8 ??C) (Temporal) Resp 15 Ht 5' 11 (1.803 m) Wt 75.6 kg (166 lb 10.7 oz) SpO2 96% BMI 23.25 kg/m?? Intake/Output Summary (Last 24 hours) at 04/27/20252113 Last data filed at 04/27/2025 1921 Gross per 24 hour Intake 1080 ml Output 1189 ml Net -109 ml Neuro: Alert awake oriented CV: Regular rate and rhythm Resp: Clear to auscultate bilaterally left-sided pigtail catheter connected to atrium box on suction with mild end expiratory airleak Ext: No pedal edema Subcutaneous emphysema noted in the left side of the face left side of the neck and left upper chest compared to yesterday is improved Labs, micro-results reviewed Imaging-independently reviewed and interpreted by me including chest x-ray from today which shows atrace left basilar pneumothorax Principal Problem: Secondary spontaneous pneumothorax Active Problems: Cigarette smoker Elevated serum creatinine Hyperkalemia Acute respiratory failure with hypoxia (CMS/HCC) Chronic kidney disease, stage IV (severe) (CMS/HCC) Assessment: Secondary spontaneous pneumothorax Bronchopleural fistula Suspected emphysema Current smoker Elevated creatinine Hyperkalemia Plan: -Status post chest tube placement significant improvement in lung expansion there is still leak on deep expiration -Continue chest tube to suction -I informed patient that typical recommendations are to maintain chest tube to suction until air leak improves at least for 7 to 10 days before we intervene with alternate treatments including invasive treatments like blood patch or bronchoscopic interventions with endobronchial valves -Requested RN to change the dressing today he - Daily chest x-rays ordered - Will follow Brayden Trammell MD * Liset William DO - 04/27/2025 6:46 AM CDT Nephrology Progress Note Admit Date: 04/24/2025 Pt admitted with sob, had pnx, ct placed, noted ckd Subjective: Patient is being seen for ckd 4. Chief complaint no new issues Events from last 24 hours: no new complaints. and no new events per RN/RT staff. Meds,labs, vitals, events of last 24 hours and problem list reviewed. Physical Exam: BP 139/88 (BP Location: Left arm, Patient Position (BP): Supine) Pulse 90 Temp 97.8 ??F (36.6 ??C) (Temporal) Resp 12 Ht 5' 11 (1.803 m) Wt 75.6 kg (166 lb 10.7 oz) SpO2 97% BMI 23.25 kg/m?? Intake/Output Summary (Last 24 hours) at 04/27/2025 0646 Last data filed at 04/27/2025 0447 Gross per 24 hour Intake -- Output 1369 ml Net -1369 ml General appearance: alert, in no distress Lungs: clear to auscultation bilaterally, normal respiratory effort Heart: regular rate and rhythm, S1, S2 normal, no murmur, click, rub or gallop Abdomen: Soft, non tender, non distended Extremities: intact distal pulses, moves all extremities equally, no edema, redness or tenderness in the calves or thighs Labs: Lab Results Component Value Date WBC 12.8 (H) 04/27/2025 HGB 14.2 04/27/2025 HGBPOC 15.7 04/25/2025 HCT 42.4 04/27/2025 HCTPOC 47 04/25/2025 PLT 270 04/27/2025 MCV 91.4 04/27/2025 Lab Results Component Value Date NA 134 (L) 04/27/2025 K 4.7 04/27/2025 CL 102 04/27/2025 CO2 20 (L) 04/27/2025 CA 9.3 04/27/2025 BUN 51 (H) 04/27/2025 CREAT 2.16 (H) 04/27/2025 GLUCOSE 121 (H) 04/27/2025 ANIONGAP 12 04/27/2025 AssessmentPlan: 1.ckd 4- renal function stable- -daily lab -creat stable -avoid nephrotoxins 2. Metabolic acidosis- -start bicarb -not at goal of 24 hco3 Liset William DO * Edwin Beauchamp MD - 04/26/2025 5:13 PM CDT Hx: Froylan Yan is a 60-year-old male with a significant history of cigarette smoking, hypertension, CKD who was admitted to [facility] for evaluation and management of spontaneous pneumothorax on 04/24/25. The patient initially presented to an outside emergency department with sudden onset of left-sided chest pain and shortness of breath, where imaging revealed a large left pneumothorax; a pigtail catheter was placed, and the [facility], and admitted under hospital medicine. On arrival, Repeat chest xray confirmed improvement in the pneumothorax following chest tube placement. Labs revealed elevated creatinine secondary to CKD with hyperkalemia. Pulmonology was consulted for management and ongoing air leak which was suspected to be due to a small bronchopleural fistula, likely secondary to underlying severe emphysema. This evening 04/25/2025 a rapid response was called for chest pain with increased work of breathing accompanied by increased heart rate and hypertension. A stat x-ray was obtained revealing retracted left pleural pigtail catheter terminating over the left lateral chest wall with increased large leftpneumothorax, partially collapsed left lung. The patient was transferred to ICU for chest tube placement. Pertinent PMHx: No past medical history on file. Current Care Plan Summary 60-year-old male with no known medical history other than smoking admitted from outside facility on04/24/2025 for further management of spontaneous left-sided pneumothorax, pigtail placed at outside facility, admitted under hospital medicine. Today 04/25/2025 a rapid response was called for increasing shortness of breath, chest pain, hypertension, tachycardia, x-ray revealed retracted left pleuralpigtail, large left pneumothorax and partially collapsed left lung. Patient transferred to the ICU for chest tube placement. Chest tube placement per attending, follow-up x-ray pending, repeat x-ray in AM. Pulmonology following. Wean supplemental oxygen as tolerated Elevated creatinine with mild hyperkalemia secondary to CKD ; per patient he has been seen by nephrology prior. 04/26-await nephrology recommendations Subjective: 24 hour events - See above Objective: Current vital signs Blood pressure (!) 197/109, pulse (!) 105, temperature 97.5 ??F (36.4 ??C), temperature source Temporal, resp. rate 18, height 5' 11 (1.803 m), weight 75.6 kg (166 lb 10.7 oz), SpO2 (!) 85%. 24 hour BP and temperature range BP: (129-197)/(78-109) Temp (24hrs), Av.5 ??F (36.4 ??C), Min:97.4 ??F (36.3 ??C), Max:97.5 ??F (36.4 ??C) Input/Output No intake/output data recorded. PHYSICAL EXAM: Gen: 60 year old male, NAD Neuro: Alert, oriented, non-focal. HEENT: Facial swelling noted on Left / Subcu air. Cardiac: Tachycardic Pulm: Decreased breath sounds on L. Crepitus noted. Currentlly on 15L NC. Abdomen: Soft, nontender, BS+ Skin: Warm, dry, intact Extremities: Pulses palpable, no edema. Data Review: BMP: Recent Labs 04/24/25 1413 GLUCOSE 114* BUN 45* CREAT 2.23* NA 138 K 5.7* CL 104 CO2 21* ANIONGAP 13 estimated creatinine clearance is 38.5 mL/min (A) (by C-G formula based on SCr of 2.23 mg/dL (H)). LFTs: Recent Labs 04/24/25 1413 ALKPHOS 85 ALT 36 AST 31 BILITOTAL 0.2 ALBUMIN 4.4 CBC: Recent Labs 04/24/25 1413 WBC 17.2* HGB 14.6 HCT 44.5 PLT 303 MCV 91.8 Coagulation: Recent Labs 04/24/25 1413 PT 13.9 INR 1.0 ABG: No results found for: SPECIMENSOU , PHBLOODPOC , JZU5ORV , PO2POC , PGZ9AHH , K2ZGGULS , FTJ0GGQ , BEPOC , LACTATE , PATIENTTEMP , PHTEMPCORR , PED6AZXQNE , [id number] Lactic acid: No results found for: LACTATE Radiology: Reviewed Assessment and Plan Acute respiratory failure secondary to left-sided pneumothorax. Currently on 15L NC, Wean supplemental oxygen as tolerated. Left-sided pneumothorax, pigtail placed at outside facility, rapid response called on 04/25 found tohave displaced pigtail and left-sided partial lung collapse. Pulmonology following, Suspect pneumothorax is secondary to severe emphysema (undiagnosed). Chest tube placed per attending, follow-up x-ray ordered Await further recommendation from pulmonology Elevated creatinine with hyperkalemia CARRIE vs. CKD. On Farxiga ENTOMOLOGY PROFESSOR Mild Hyperkalemia, Secondary to CKD, on lisinopril ENTOMOLOGY PROFESSOR, which could be contributing to hyperkalemia. Trend / Treat medically if needed. Routine ICU skin care Family communication: Patient updated directly at bedside. * Brayden Trammell MD - 04/26/2025 12:00 PM CDT [facility] Froylan Yan is a 60 y.o. male being seen for pneumothorax Admit Date: 04/24/2025 Subjective: Complains of her discomfort in the left side of the chest but better than yesterday Objective: Meds: reviewed BP 132/84 (BP Location: Right arm, Patient Position (BP): Supine) Pulse 89 Temp 98.5 ??F (36.9 ??C) (Temporal) Resp 13 Ht 5' 11 (1.803 m) Wt 75.6 kg (166 lb 10.7 oz) SpO2 94% BMI 23.25kg/m?? Intake/Output Summary (Last 24 hours) at 04/26/20252029 Last data filed at 04/26/2025 1800 Gross per 24 hour Intake -- Output 1950 ml Net -1950 ml Neuro: Alert awake oriented CV: Regular rate and rhythm Resp: Clear to auscultate bilaterally left-sided pigtail catheter connected to atrium box on suction with mild end expiratory airleak Ext: No pedal edema Subcutaneous emphysema noted in the left side of the face left side of the neck and left upper chest compared to yesterday is improved Labs, micro-results reviewed Imaging-independently reviewed and interpreted by me including chest x-ray from today which shows atrace left basilar pneumothorax Principal Problem: Secondary spontaneous pneumothorax Active Problems: Cigarette smoker Elevated serum creatinine Hyperkalemia Acute respiratory failure with hypoxia (CMS/HCC) Chronic kidney disease, stage IV (severe) (CMS/HCC) Assessment: Secondary spontaneous pneumothorax Bronchopleural fistula Suspected emphysema Current smoker Elevated creatinine Hyperkalemia Plan: -Status post chest tube placement significant improvement in lung expansion there is still leak on deep expiration -Continue chest tube to suction -Requested RN to change the dressing to transparent -Needs close monitoring of the dressing every day as pigtail can get dislodged - Daily chest x-rays ordered - Will follow Brayden Trammell MD * Nimisha Nicole APRN-BC - 04/25/2025 3:[address] [facility] Patient Handoff Notification: Patient handoff given to Dr. Beauchamp via staff message. Transfer discussed with Dr. Alvarado. Cosigned by Maxine Alvarado MD at 04/25/2025 3:59 PM CDT * Nimisha Nicole APRN-BC - 04/25/2025 2:13 PM CDT Additional CCM Intervention Note: Acutely ill 60-year-old male with significant past medical history of tobacco use and COPD admittedfor large spontaneous pneumothorax thought to be secondary from bleb rupture s/p pigtail placement transferred to the ICU due to air leak and worsening pneumothorax now s/p repeat chest tube placement. CARRIE on CKD with hyperkalemia this morning. Medically treated with repeat of 5.4. Will continue to trend. No urgent indication for HD at this time. Patient does have large amounts of subcutaneous air on assessment. Was initially on 15 L nasal cannula, now able to wean down to 4 L nasal cannula. Maintain O2 saturations 88-92%. Can likely transfer out of ICU to a telemetry floor. Cosigned by Maxine Alvarado MD at 04/25/2025 2:44 PM CDT * Brayden Trammell MD - 04/25/2025 11:42 AM CDT [facility] Froylan Yan is a 60 y.o. male being seen for pneumothorax Admit Date: 04/24/2025 Subjective: Inadvertently chest tube got dislodged last night patient had rapid response with rapid developmentof subcutaneous emphysema in the left side of the face, patient emergently transferred to the ICU and had a chest tube placed by ICU attending physician Objective: Meds: reviewed BP 125/86 Pulse 89 Temp 99.5 ??F (37.5 ??C) (Axillary) Resp 12 Ht 5' 11 (1.803 m) Wt 75.6 kg (166 lb 10.7 oz) SpO2 93% BMI 23.25 kg/m?? Intake/Output Summary (Last 24 hours) at 04/25/2025 1142 Last data filed at 04/25/2025 0330 Gross per 24 hour Intake -- Output 275 ml Net -275 ml Neuro: Alert awake oriented CV: Regular rate and rhythm Resp: Clear to auscultate bilaterally Ext: No pedal edema Subcutaneous emphysema noted in the left side of the face left side of the neck and left upper chest Labs, micro-results reviewed Imaging-independently reviewed and interpreted by me Principal Problem: Secondary spontaneous pneumothorax Active Problems: Cigarette smoker Elevated serum creatinine Hyperkalemia Acute respiratory failure with hypoxia (CMS/HCC) Assessment: Secondary spontaneous pneumothorax Bronchopleural fistula Suspected emphysema Current smoker Elevated creatinine Hyperkalemia Plan: -Status post chest tube placement significant improvement in lung expansion there is still leak on deep expiration - Management of hyperkalemia and CARRIE per hospitalist - Daily chest x-rays ordered - Will follow Brayden Trammell MD * Kaitlyn Boss RN - 04/25/2025 12:42 AM CDT 04/24/252352 Rapid Response Team Tracking Rapid Response Start (update time if interventions or assessments done prior to beginning documentation) START Time Called 2352 Arrival Time 2355 End Time 28 Primary Reason for Call to Rapid Response Team Other (Comment) (SubQ Air) Patient activity within last 24 hrs Admitted from ED within last 24 hrs Is patient a medical or surgical patient? medical patient Rapid Response End Event END Rapid Response Team Progress Note Summary: HAND SURGEON called for ST, low oxygen saturation, and HTN. Upon arrival, pt had severe subQ air from left nipple line up to the neck and extending into face causing swelling to left eye. CXR from previous HAND SURGEON showed the chest tube not in place. Pt transferred to for chest tube placement Physician communication: Rapid Response Nurse Signature: Kaitlyn Boss RN, 04/25/2025 12:43 AM * Pastora Diaz RCP - 04/25/2025 12:37 AM CDT Respiratory Care Rapid Response Note: Arrived at 2355 Primary Reason for Rapid Response: increased shortness of breath, eyelid swelling Patient presents with the following signs and symptoms: crepitus up to left eyelids, shortness of breath, chest pain Initial Oxygen device nasal cannula ~6L Initial SpO2 85 RT Action: switched to NRB 15L, wean to 15L high flow cannula, assist with transfer to ICU Breathing tx given? no ABG ordered? no BiPAP initiated? no ABG ordered post initiation? Not applicable Patient's respiratory status stabilized? yes Hand off to patient's nurse pending transfer. Time: 29 Moved to ICU? yes Time: 29 Pastora Diaz RCP * Zoe Devine NP - 04/25/2025 12:22 AM CDT CRITICAL CARE MEDICINE DAILY PROGRESS NOTE PCP: No primary care provider on file. Hx: Froylan Yan is a 60-year-old male with a significant history of cigarette smoking, hypertension, CKD who was admitted to [facility] for evaluation and management of spontaneous pneumothorax on 04/24/25. The patient initially presented to an outside emergency department with sudden onset of left-sided chest pain and shortness of breath, where imaging revealed a large left pneumothorax; a pigtail catheter was placed, and the patient was transferred to [facility]level care, and admitted under hospital medicine. On arrival, Repeat chest xray confirmed improvement in the pneumothorax following chest tube placement. Labs revealed elevated creatinine secondary to CKD with hyperkalemia. Pulmonology was consulted for management and ongoing air leak which was suspected to be due to a small bronchopleural fistula, likely secondary to underlying severe emphysema. This evening 04/25/2025 a rapid response was called for chest pain with increased work of breathing accompanied by increased heart rate and hypertension. A stat x-ray was obtained revealing retracted left pleural pigtail catheter terminating over the left lateral chest wall with increased large leftpneumothorax, partially collapsed left lung. The patient was transferred to ICU for chest tube placement. Pertinent PMHx: No past medical history on file. Current Care Plan Summary 60-year-old male with no known medical history other than smoking admitted from outside facility on04/24/2025 for further management of spontaneous left-sided pneumothorax, pigtail placed at outside facility, admitted under hospital medicine. Today 04/25/2025 a rapid response was called for increasing shortness of breath, chest pain, hypertension, tachycardia, x-ray revealed retracted left pleuralpigtail, large left pneumothorax and partially collapsed left lung. Patient transferred to the ICU for chest tube placement. Chest tube placement per attending, follow-up x-ray pending, repeat x-ray in AM. Pulmonology following. Wean supplemental oxygen as tolerated Elevated creatinine with mild hyperkalemia secondary to CKD ; per patient he has been seen by nephrology prior. ICU timeline: 04/25: Rapid Response xray with collapsed left lung, Transfer to ICU Major active problem list: Principal Problem: Secondary spontaneous pneumothorax Active Problems: Cigarette smoker Elevated serum creatinine Hyperkalemia Subjective: 24 hour events - See above Objective: Current vital signs Blood pressure (!) 197/109, pulse (!) 105, temperature 97.5 ??F (36.4 ??C), temperature source Temporal, resp. rate 18, height 5' 11 (1.803 m), weight 75.6 kg (166 lb 10.7 oz), SpO2 (!) 85%. 24 hour BP and temperature range BP: (129-197)/(78-109) Temp (24hrs), Av.5 ??F (36.4 ??C), Min:97.4 ??F (36.3 ??C), Max:97.5 ??F (36.4 ??C) Input/Output No intake/output data recorded. PHYSICAL EXAM: Gen: 60 year old male, NAD Neuro: Alert, oriented, non-focal. HEENT: Facial swelling noted on Left / Subcu air. Cardiac: Tachycardic Pulm: Decreased breath sounds on L. Crepitus noted. Currentlly on 15L NC. Abdomen: Soft, nontender, BS+ Skin: Warm, dry, intact Extremities: Pulses palpable, no edema. Data Review: BMP: Recent Labs 04/24/25 1413 GLUCOSE 114* BUN 45* CREAT 2.23* NA 138 K 5.7* CL 104 CO2 21* ANIONGAP 13 estimated creatinine clearance is 38.5 mL/min (A) (by C-G formula based on SCr of 2.23 mg/dL (H)). LFTs: Recent Labs 04/24/25 1413 ALKPHOS 85 ALT 36 AST 31 BILITOTAL 0.2 ALBUMIN 4.4 CBC: Recent Labs 04/24/25 1413 WBC 17.2* HGB 14.6 HCT 44.5 PLT 303 MCV 91.8 Coagulation: Recent Labs 04/24/25 1413 PT 13.9 INR 1.0 ABG: No results found for: SPECIMENSOU , PHBLOODPOC , URM4DSF , PO2POC , HKR6RTC , H2PGZFWI , OZV7TLH , BEPOC , LACTATE , PATIENTTEMP , PHTEMPCORR , [id number] , [id number] Lactic acid: No results found for: LACTATE Radiology: Reviewed Assessment and Plan Neuro/Psych: Neurologically intact Cardiovascular/Fluids: Hypertensive, on lisinopril ENTOMOLOGY PROFESSOR hold with hyperkalemia. Will utilize PRNs to maintain SBP less [id number]. Pulmonary Acute respiratory failure secondary to left-sided pneumothorax. Currently on 15L NC, Wean supplemental oxygen as tolerated. Left-sided pneumothorax, pigtail placed at outside facility, rapid response called on 04/25 found tohave displaced pigtail and left-sided partial lung collapse. Pulmonology following, Suspect pneumothorax is secondary to severe emphysema (undiagnosed). Chest tube placed per attending, follow-up x-ray ordered Current smoker > 40 year hx. GI/NUT: General SUP, NA Renal/LYTES/Acid-Base: Elevated creatinine with hyperkalemia CARRIE vs. CKD. On Farxiga ENTOMOLOGY PROFESSOR Mild Hyperkalemia, Secondary to CKD, on lisinopril ENTOMOLOGY PROFESSOR, which could be contributing to hyperkalemia. Trend / Treat medically if needed. Infectious Disease: Monitor off abx. Hem/Onc/Coag: Leukocytosis a febrile, suspect reactive. DVTp, heparin subcu Endocrine: No history of diabetes BG goal less than 180 Musculoskeletal/Skin: Routine ICU skin care Family communication: Patient updated directly at bedside. Cosigned by Taryn aLi MD at 04/25/2025 2:21 AM CDT Associated attestation - Taryn Lai MD - 04/25/2025 2:21 AM CDT I reviewed the medical record including the applicable Critical Care Medicine APC note from today. I independently examined the patient I discussed the history, physical findings, laboratory findings, assessment and plan with the applicable APC on rounds.? I have reviewed the physical exam findings in the applicable resident/Fellow/AEROPHYSICS ENGINEER/PA's note; my notable physical exam findings include: Vitals: 04/25/25 0041 BP: Pulse: Resp: Temp: SpO2: 95% Body mass index is 23.25 kg/m??. Neuro: Awake, alert, oriented x 3 CV: S1-S2 heard, tachycardia present Resp: Diminished breath sounds on the left, crepitus present on the left chest GI: Soft, nontender Ext: No edema I have reviewed the assessment and plan in the applicable APC note. Notable amendments to the assessment and plan include: The patient is a 60-year-old gentleman who has been admitted to the hospitalist service on 04/24/2025 for management of spontaneous secondary left pneumothorax. Patient initially presented to outside facility emergency department. Was noted to have left pneumothorax and had left pigtail catheter placement. Was evaluated by pulmonary postadmission. At that time chest tube was in place and had airleak in the atrium box. Rapid response was called around midnight for worsening shortness of breath, chest pain and tachycardia. Chest x-ray revealed large left pneumothorax with chest tube tip located in the subcutaneous tissue. Patient has been transferred to ICU for management of large left pneumothorax. Underwent left 14 Marshallese pigtail catheter placement. Chest tube is connected to -20 cm water and continuous wall suction Has intermittent expiratory airleak. Chest x-ray postprocedure showed expansion of the left lung, has significant subcutaneous emphysemaand left pigtail catheter in place. On examination patient has significant subcutaneous emphysema on the left side of the chest, left side of the neck and left side of the face. Continue with supplemental oxygen for now to promote resumption of the pneumothorax Previous chest tube has been removed. Plan for follow-up chest x-ray in the morning. Patient reports of using Anoro and albuterol prior to admission. Will start on Incruse. Continue with DuoNebs as needed. Rest as per BRETT note. Family Communication: Discussed with the patient Critical care time -not applicable IM 3 Active problem list: Principal Problem: Secondary spontaneous pneumothorax Active Problems: Cigarette smoker Elevated serum creatinine Hyperkalemia Acute respiratory failure with hypoxia (CMS/HCC) * Vecchione, Fanny M, RN - 04/25/2025 12:18 AM CDT Transferred to report given to New RN. * Millie ChaconDO - 04/25/2025 12:12 AM CDT Images from the original note were not included. Crispin Mondragon Two patient identifier: Froylan Yan 1965 Called for: Rapid response Last Recorded Vitals: BP (!) 197/109 Pulse (!) 105 Temp 97.5 ??F (36.4 ??C) (Temporal) Resp 18 Ht 5' 11 (1.803 m) Wt 75.6 kg (166 lb 10.7 oz) SpO2 95% BMI 23.25 kg/m?? Pain Rating: Rest: 3 (04/24/25 2140) Physical Exam Constitutional: Appearance: Normal appearance. He is ill-appearing and toxic-appearing. HENT: Head: Normocephalic and atraumatic. Comments: Subcu air Nose: Nose normal. Mouth/Throat: Mouth: Mucous membranes are moist. Eyes: Extraocular Movements: Extraocular movements intact. Pupils: Pupils are equal, round, and reactive to light. Cardiovascular: Rate and Rhythm: Regular rhythm. Tachycardia present. Pulses: Normal pulses. Heart sounds: Normal heart sounds. Pulmonary: Effort: Pulmonary effort is normal. Breath sounds: Normal breath sounds. Comments: Decreased left-sided breath sounds Abdominal: General: Abdomen is flat. Bowel sounds are normal. Palpations: Abdomen is soft. Musculoskeletal: General: Normal range of motion. Cervical back: Normal range of motion and neck supple. Skin: General: Skin is warm and dry. Capillary Refill: Capillary refill takes 2 to 3 seconds. Neurological: General: No focal deficit present. Mental Status: He is alert and oriented to person, place, and time. Mental status is at baseline. Psychiatric: Mood and Affect: Mood normal. Behavior: Behavior normal. Documentation/Intervention/Outcome: Chart briefly reviewed. Rapid response called initially due to concerns of right sided chest pain. Stat EKG, troponin series as well as CXR ordered. EKG reviewed at bedside which shows no evidence of ST segment elevations. Patient hypertensive. Will administer 10 mg IV hydralazine. Will await CXR and troponin series to be obtained. Update Rapid response called again due to concerns of crepitus of left chest wall as well as left face. CXR personally viewed shows evidence of the pigtail catheter being pulled into the soft tissues; nolonger within thoracic cavity. Patient currently tachycardic, tachypneic and requiring oxygen whichis a change from prior. Patient currently on nonrebreather satting mid 90s. Discussed with on-call director human services; will transfer to ICU for urgent chest tube placement. Appreciate assistance. Critical Care Time: Upon my evaluation, this patient had a high probability of imminent or life- threatening deterioration due to pneumothorax, acute hypoxic respiratory failure, which required my direct attention, intervention, and personal management. I have personally provided 60 minutes of critical care time. Time includes review of laboratory data, radiology results, discussion with consultants, and monitoring for potential decompensation. Interventions were performed as documented above. Please call back any time if I can be of more assistance. Millie Chacon DO 04/25/2025, 1:43 AM * Evaristo Jordan - 04/24/2025 9:46 PM CDT Reason for Visit: (P) Crisis (Rapid Response) Patient spiritual issues identified summary of patient???s most significant issue(s): Froylan is dealing with low oxygen and chest pains after having a chest tube placed this evening. He remains stable as staff works on raising his oxygenlevels and lowering his blood pressure. Unable to make contact with Froylan and no family is present at time of response. Spiritual Care remains available 18/03 should any spiritual/emotional needs arise. Spiritual interventions Provided supportive presence for Froylan and staff. (P) Spiritual support provided RUBBER MILL OPERATOR???S ASSESSMENT OF PATIENT???S LEVEL OF DISTRESS: Mild Outcomes of Care Unable to assess for spiritual/emotional needs. Goals of Spiritual Care Cad Engineer Plan Spiritual Care Services remain available for referral PRN. Recommendations for Healthcare Team As spiritual needs/distress arise, please contact Spiritual Care Services. We will follow up as needed. Thank you for this referral. Chaplain Evaristo Osbornehelm Spiritual Care Team [phone] * Kaitlyn Boss RN - 04/24/2025 9:39 PM CDT 04/24/252125 Rapid Response Team Tracking Rapid Response Start (update time if interventions or assessments done prior to beginning documentation) START Time Called 2125 Arrival Time 2127 End Time 2134 Primary Reason for Call to Rapid Response Team Chest pain Patient activity within last 24 hrs Admitted from ED within last 24 hrs Is patient a medical or surgical patient? medical patient Rapid Response End Event END Rapid Response Team Progress Note Summary: HAND SURGEON called for patient c/o chest pain with increased work of breathing, ST, and HTN. Pt had left chest tube at OSH. CT positive for air leak and fluctuation (MD aware). Pt had diminished lung sounds throughout right side, LLL had decreased lung sounds. Pt's work of breathing started to normalize. Dr. Chacon arrived at bedside, VORB placed. Pt remains on 3D Physician communication: VORB, CXR stat, EKG stat, troponin panel, 10mg hydralazine one time only Rapid Response Nurse Signature: Kaitlyn Boss RN, 04/24/2025 9:39 PM * Eliel Dixon, PHARMACIST - 04/24/2025 9:03 PM CDT RX ANTICOAG MONITORING ORDERS Pharmacy to order, review, and report clinically significant changes in lab per [facility] Anticoagulation Protocol as follows: Orders for dosing changes and follow-up labs will be signed ???Per Protocol?? in [facility]. The name ofthe provider signed on the follow-up orders for cosignature will be assigned as follows: Orders placed by members of the Entry Level Marketing Assistant or Hospitalist physician groups: If the original ordering provider is no longer the attending physician for the patient, responsibility for cosignature of the follow-up medication orders and labs will transfer from the original ordering provider to the current attending physician. Orders placed by any other provider: Responsibility for cosignature of the follow-up medication orders and labs will remain with the original ordering provider of the anticoagulant order. Pharmacy will order appropriate labs as indicated by the [facility] Anticoagulation Monitoring policy located on [facility] intranet, unless already ordered. The medications that will be monitored include (but are not limited to): Low molecular weight heparin, heparin, and fondaparinux Direct Thrombin Inhibiors (argatroban, bivalirudin dabigatran lepirudin) Warfarin Direct oral anticoagulants (rivaroxaban, apixaban, edoxaban) Pharmacy will order labs for patients not on a heparin protocol, warfarin protocol, or anticoagulant protocol. Nursing to order labs required as indicated by those protocols. This policy is in compliance with the [facility] National Patient Safety Goal 3E and authorized by the [facility] Pharmacy and Therapeutics Committee. Cosigned by Edwin Beauchamp MD at 04/26/2025 12:44 AM CDT documented in this encounter H&P Notes * Rocky Gibson DO - 04/24/2025 2:37 PM CDT History & Physical PATIENT: Froylan Yan AGE: 60 y.o. CSN: [id number] Date of : 1965 HPI: Froylan Yan is a 60 y.o. male. This patient was interviewed and examined upon arrival from the [facility] ED. He presented there after sudden onset of left chest pain and SOB and was found to have a large spontaneous pneumothorax on the Left. This was reduced significantly after CT placement and he was transferred for ongoing management after discussing with Dr Trammell who will consult. On arrival there is a small amt of bubbling in the atrium indicating a possible air leak but he is more comfortable after being returned to continuous suction. He admits to smoking cigarettes for many years. CXR is pending now. Allergies: No Known Allergies PMHx: He denies hx pertinent to this admission Never broken ribs. Only has had a broken wrist. Home Medications: Denies home meds PSHx: No past surgical history on file. Social Hx: Social History Tobacco Use Smoking status: Not on file Smokeless tobacco: Not on file Substance Use Topics Alcohol use: Not on file Family Hx: he denies family hx pertinent to this admission Review of Systems Constitutional: positive for fatigue. Behavioral/Psych: negative. Cardiovascular: negative. Ear, Nose, Mouth, Throat: denies hearing loss, ear issues, nasal congestion, neck mass, oral issues, hoarse voice Eyes: negative. Gastrointestinal: negative. Genitourinary: negative. Integument/breast: negative. Endocrine: negative. Musculoskeletal: negative. Neurological: negative. Respiratory: see HPI. Physical Exam Patient Vitals for the past 6 hrs: BP Temp Temp src Pulse 04/24/25 1400 (!) 161/100 97.4 ??F (36.3 ??C) Oral 81 General appearance: alert, in no distress, fatigued Head: atraumatic, Normocephalic, without obvious abnormality Eyes: conjunctivae/corneas clear. PERRL, EOM's intact. Ears: normal TM's and external ear canals AU Nose: Nares normal. Septum midline. Mucosa normal. No drainage or sinus tenderness. Throat: Lips, mucosa (moist), and tongue normal. Teeth and gums normal Neck: supple, symmetrical, trachea midline, no adenopathy, thyroid: not enlarged, symmetric, no tenderness/mass/nodules, no carotid bruit, and no JVD Lungs: normal respiratory effort, BS diminished BL but present to apices on both sides Heart: normal rate, regular rhythm, normal S1, S2, no murmurs, rubs, clicks or gallops Abdomen: Soft, non-tender. Bowel sounds normal. No masses, no organomegaly. Extremities: extremities normal, atraumatic, no cyanosis or edema, intact distal pulses, moves all extremities equally, no edema, redness or tenderness in the calves or thighs, normal strength, normal tone Neurologic: Grossly normal Data Review: CBC: Lab Results Component Value Date/Time WBC 17.2 (H) 04/24/2025 02:13 PM RBC 4.85 04/24/2025 02:13 PM HGB 14.6 04/24/2025 02:13 PM HCT 44.5 04/24/2025 02:13 PM PLT 303 04/24/2025 02:13 PM BMP: No results found for: NA , K , CL , CO2 , CA , BUN , CREAT , GLUCOSE , ANIONGAP , BCRATIO LFTS: No results found for: TOTALPROTEIN , ALBUMIN , BILITOTAL , ALKPHOS , AST , ALT Coagulation: Lab Results Component Value Date/Time PT 13.9 04/24/2025 02:13 PM INR 1.0 04/24/2025 02:13 PM Radiology review: Repeat CXR pending now Assessment: Principal Problem: Spontaneous pneumothorax, left Active Problems: Cigarette smoker Plan: Admit for ongoing evaluation and treatment of spontaneous requiring Chest tube to continuous wall suction CXR pending Pulmonology will consult Continuous NC O2 until CT is removed PRN meds for pain and nausea Home meds reviewed and reconciled He denies home meds This patient is admitted as inpatient. I anticipate that the patient will be hospitalized for 2 midnights or greater, as outlined in my assessment and plan. Rocky Gibson DO 04/24/2025 2:37 PM CC: No primary care provider on file. documented in this encounter Procedure Notes * Wyatt Tarango PA - 05/14/2025 9:35 AM CDT Chest Tube Insertion Procedure Note PREOP DIAGNOSIS: Clinically significant left Pneumothorax. POSTOP DIAGNOSIS: Clinically significant left Pneumothorax. Surgeon: Wilbert Assistants: Wyatt Tarango PA-C Anesthesia: Local anesthesia 1% plain lidocaine::1% Lidocaine plain Procedure: left 28 Marshallese chest tube Procedure Details Informed consent was for the procedure. Risks of bleeding, infection, adverse drug reaction and arrhythmia, as well as injury to the lung, regional blood vessels and heart were discussed. The skin was prepped and draped in sterile fashion. The site was infiltrated with 20 ml 1% Lidocaine plain. An incision was made in the anterior axillary line at the level of the nipple. The chest cavity was entered, a tube was placed and secured with appropriate suture. Complications: None; patient tolerated the procedure well. Condition: stable. Attending Attestation: I performed the procedure. Plan: Post Procedure CXR was ordered. Signed: Wyatt Tarango PA-C 05/14/2025, 9:36 AM Cosigned by Puma Atkins MD at 05/14/2025 4:24 PM CDT * Brayden Trammell MD - 05/10/2025 10:06 PM CDTAssociated Order(s): PROCEDURE REPORT [facility] Pulmonology Patient Name: Froylan Yan Procedure Date: 05/04/2025 Date of : 1965 Admit Type: Inpatient Age: 60 Attending MD: Brayden Trammell MD, Procedure: Bronchoscopy Providers: Brayden Trammell MD Referring MD: Procedure: See epic Estimated Blood Loss: Estimated blood loss: none. Findings: Brayden Trammell MD 05/10/2025 10:06:14 PM Number of Addenda: 0 Note Initiated On: 05/04/2025 12:03 PM Scope In: 12:29:47 PM Scope Out: 12:52:[address] [place] [address], [address], [place] * Jamil Santos CNA - 05/07/2025 9:45 PM CDT VASCULAR ACCESS TEAM Peripheral IV insertion with lab collection PATIENT NAME: Froylan Yan DATE OF : 1965 CSN: [id number] DATE: 05/07/2025 Room: [address] [place] [address] Admit Date: 04/24/2025 Hospital day: LOS: 13 days Allegries: No Known Allergies PERIPHERAL IV INSERTION and LAB COLLECTION Ultrasound assessment was performed to assess adequacy of vascular anatomy Adequate vessel was located Insertion site cleansed for 30 seconds with Chlora-prep. Site allowed to dry before ultrasound guided needle stick. A 20 Gauge 2 Inch peripheral IV was successfully placed using ultrasound guidance in the Right, LOWER Arm Secure port adhesive used Yes 1 attempts 20minutes required to complete procedure Labs collected No Blood Cultures collected No Positive blood return noted Neutral pressure cap applied Catheter Flushed with 5ml of Normal Saline Transparent dressing applied with date, time and initials of cowoker inserting. LDA documentation is contained in EMR flowsheet Patient tolerated well. Jamil Santos CNA * Brayden Trammell MD - 05/04/2025 2:02 PM CDT Bronchoscopy Procedure Note Pre-op Diagnosis: Left-sided pneumothorax with persistent air leak. Surgeon: Brayden Trammell MD Sedation/Analgesia: General Anesthesia by Anesthesiologist: Ha Blancas MD RECEIVING ASSOCIATE STORE: Ian Odonnell CRNA Procedure Details Informed consent was obtained for the procedure, including possible sedation. Risks of hypoxemia, lung injury/perforation, hemorrhage, infection, arrhythmia, and adverse drug reaction were discussed. Prior to start of the procedure chest tube connections were verified and a continuous airleak was noted with patient placed on suction at -20 cm H2O Time-Out Process performed, verified patient identification, verified procedure, verified correct patient position, special equipment available.After patient was placed under general anesthesia the bronchoscope was advanced through the bronch adapter and the ET tube into the trachea. Endotracheal Tube: patent, clear of secretions, copious secretions, and partial ET tube occlusion from secretions Trachea: appeared normal Right and Left Mainstem: appeared normal Right Upper/Middle/Lower Lobes: appeared normal Left Upper/Lower Lobes: partially occluded with foamy white secretions Evaluation for endobronchial valve placement A occlusive Rai balloon was used for evaluation of airleak initially the balloon was located inthe left mainstem bronchus and inflated to completely occlude the lumen of the bronchus which resulted in complete cessation of the leak. Then balloon was deflated and extended into the left upper lobe bronchus at which time there was a continuous expiratory airleak noted. I deflated the balloon and then reintroduced it into the left lower lobe bronchus and inflated the balloon back up to completely occlude the lumen there was still a continuous expiratory airleak noted. The amount of air leaking on the occlusion was noted to be similar to that was previously seen in the left upper lobe. I individually tried the left upper lobe apical segment and the lingula segments to see if there would be any decrease in the airleak there was no change I then introduced the balloon into the left lower lobe superior segment and into the lower ALP segments and again did not see any further decrease in the expiratory airleak. I repeated the occlusion of the distal left mainstem bronchus and there was again complete cessation of the airleak. At the end of the above it was assessed that patient has collateral ventilation most likely due to lack of an intact future hence patient is not a candidate for endobronchial valve placement. EBL: 0 mL Complications: None; patient tolerated the procedure well. Condition: stable. Patient has no family members postprocedure I met patient in the postprocedure area and informed him that he was not a candidate for endobronchial valve placement I informed attending physician Shania Posadas,* I also informed cardiothoracic surgery team that patient was not a candidate for endobronchial valves. Brayden Trammell MD,[facility] Pulmonary [facility] Critical [facility] On 05/04/2025 at 2:03 PM. * Taryn Lai MD - 04/25/2025 1:29 AM CDT Chest Tube Insertion Procedure Note Indications: Clinically significant Pneumothorax. Surgeon: Taryn Lai MD Sedation/Analgesia: fentanyl Procedure Details Informed consent was NOT obtained due to the emergent nature of the procedure. Time-Out Process performed, verified patient identification, verified procedure, verified site/side, verified correct patient position, special equipment/implants available. Under sterile conditions (hand hygiene prior to donning gloves, gown, mask, sterile drape), the skin overlying the left chest was prepped with chlorohexadine and draped in a sterile fashion. The skinwas infiltrated with lidocaine in the fourth intercostal space at the mid axillary line. A finder ne edle was then used to locate the pleural space and air bubbles have been noted along with small amount of pleural fluid. A 14 Marshallese pigtail catheter was introduced into the left fourth intercostal space using Seldinger's technique. Pigtail catheter was advanced over the guidewire after adequate dilation. The chest tube was placed on 20 cm of water suction. An air leak was present. Chest tube wassutured in place and dressing applied. Findings: Airleak noted. EBL: 0 ml Complications: None; patient tolerated the procedure well. Condition: stable. documented in this encounter Consult Notes * Tristan Levy RN - 05/07/2025 9:43 PM CDTAssociated Order(s): IP CONSULT TO IV TEAM VASCULAR ACCESS CONSULT PATIENT NAME: Froylan Yan DATE OF : 1965 CSN: [id number] DATE: 05/07/2025 Room: [address] [place] [address] Admit Date: 04/24/2025 Hospital day: LOS: 13 days INDICATION: Staff attempted for piv multiple times, prn medications on oct EXCLUSIONS/CONSIDERATIONS: No due iv medications at this time LAST RECORDED TEMP: Temp: 98.8 ??F (37.1 ??C) (05/07/251954)] Assessment No Known Allergies Lab Results Component Value Date/Time CREAT 1.71 (H) 05/06/2025 07:39 AM BUN 27 (H) 05/06/2025 07:39 AM NA 141 05/06/2025 07:39 AM K 4.3 05/06/2025 07:39 AM KPOC 5.4 (H) 04/25/2025 08:22 AM CL 104 05/06/2025 07:39 AM CO2 27 05/06/2025 07:39 AM GFR 46 (L) 05/06/2025 07:39 AM Lab Results Component Value Date/Time WBC 10.6 05/06/2025 07:39 AM HGB 12.7 (L) 05/06/2025 07:39 AM HGBPOC 15.7 04/25/2025 08:22 AM HCT 38.0 (L) 05/06/2025 07:39 AM HCTPOC 47 04/25/2025 08:22 AM PLT 534 (H) 05/06/2025 07:39 AM MCV 90.0 05/06/2025 07:39 AM Lab Results Component Value Date/Time INR 1.0 05/06/2025 07:39 AM INR 1.0 04/24/2025 02:13 PM PT 13.5 05/06/2025 07:39 AM PT 13.9 04/24/2025 02:13 PM No past medical history on file. Past Surgical History: Procedure Laterality Date [facility] INCL FLUOR GDNCE DX W/CELL WASHG SPX N/A 05/04/2025 BRONCHOSCOPY performed by Brayden Trammell MD at [facility] ENDOSCOPY Current Facility-Administered Medications: lidocaine 1 % (XYLOCAINE) injection 300 mg, 30 mL, Infiltration, ONE time only, Colin, Thais C, AEROPHYSICS ENGINEER sodium bicarbonate tablet 650 mg, 650 mg, Oral, BID, Liset William A, DO, 650 mg at 05/07/25 210 hydrALAZINE (APRESOLINE) 20 mg/mL injection 10 mg, 10 mg, IV, every 6 hours PRN, Nimisha Nicole, MAINTENANCE ASSISTANT-BC labetaloL (NORMODYNE;TRANDATE) 5 mg/mL injection 10 mg, 10 mg, IV, every 4 hours PRN, Nimisha Nicole MAINTENANCE ASSISTANT-BC, 10 mg at 04/25/25 0133 umeclidinium (INCRUSE ELLIPTA) 62.5 mcg/actuation inhaler 1 Puff, 1 Puff, Inhalation, resp, daily, Nimisha Nicole APRN-BC, 1 Puff at 05/07/25 0827 dextrose 5 % bolus solution 120 mL, 120 mL, IV, ONE time only, Nimisha Nicole MAINTENANCE ASSISTANT-BC HYDROcodone-acetaminophen (NORCO) 5-325 mg per tablet 1 Tablet, 1 Tablet, Oral, every 4 hours PRN, Nimisha Nicole MAINTENANCE ASSISTANT-BC, 1 Tablet at 05/07/25 1851 HYDROmorphone (PF) (DILAUDID) injection 0.5 mg, 0.5 mg, IV, every 3 hours PRN, Nimisha Nicole MAINTENANCE ASSISTANT-BC, 0.5 mg at 05/03/25 0834 naloxone (NARCAN) 0.4 mg/mL injection 0.1-0.4 mg, 0.1-0.4 mg, IV, see admin instructions, Nimisha Nicole APRN-BC sodium chloride flush injection 10 mL, 10 mL, IV, every 12 hours (2 times daily), Nimisha Nicole APRN-BC, 10 mL at 05/07/25 210 sodium chloride flush injection 10 mL, 10 mL, IV, see admin instructions, Nimisha Nicole APRN-BC, 10 mL at 05/07/25 210 sodium chloride 0.9 % flush bag 25 mL, 25 mL, IV, see admin instructions, Nimisha Nicole APRN-BC dextrose 5 % in water 250 mL flush bag 25 mL, 25 mL, IV, see admin instructions, Nimisha Nicole APRN-BC acetaminophen (TYLENOL) tablet 650 mg, 650 mg, Oral, every 6 hours PRN, Nimisha Nicole APRN-BC ondansetron (ZOFRAN ODT) tablet 4 mg, 4 mg, Oral, every 6 hours PRN, Nimisha Nicole APRN-BC,4 mg at 04/25/25 0731 nicotine (NICODERM CQ) 7 mg/24 hr transdermal patch 1 Patch, 1 Patch, Transdermal, daily, Nimisha Nicole APRN-BC, 1 Patch at 05/07/25 0827 albuterol sulfate 90 mcg/Actuation inhaler 2 Puff, 2 Puff, Inhalation, resp, every 6 hours PRN, Nimisha Nicole APRN-BC ipratropium-albuteroL (DUONEB) 0.5 mg-3 mg(2.5 mg base)/3 mL inhalation solution 3 mL, 3 mL, Inhalation, resp, every 4 hours PRN, Nimisha Nicole APRN-BC [Held by Provider] heparin injection 5,000 Units, 5,000 Units, subCUT, every 8 hours, Nimisha Nicole APRN-BC, 5,000 Units at 05/03/25 0444 PLAN Assess patient for piv access. Tristan Levy RN * Thais Shaw NP - 04/30/2025 8:46 AM CDT Thoracic Surgery Consult - Benign Disease Patient: Froylan Yan / 60 y.o. / male : 1965 Consult requested by: Shania Posadas,* Primary care provider: No primary care provider on file. Swedger: Dr Trammell Chief Complaint/Reason for Consultation: Spontaneous PTX Smoking History: no, yes Thoracic History: Chest tube yes - +airleak History of Present Illness: Froylan Yan is a 60 y.o. year-old male with significant Hx of smoking, COPD, HTN, CKD, presented 04/24/2025 with Spontaneous PTX, pigtail placed at OSH. 04/25/25 patientwas transferred to ICU due to increased work of breathing accompanied by HTN, and tachycardia. Repeat CXR revealed retracted pigtail. A new 14 fr pigtail chest tube was placed. Currently, chest tube still has airleak, patient has significant emphysema through out the left chest wall. CT Surgery wasconsulted for his spontaneous PTX. Past Medical Hx: heavy smoker, HTN, CKD Past Surgical Hx: No past surgical history on file. Allergies: No Known Allergies Family Hx: No family history on file. Social Hx: Social History Socioeconomic History Marital status: Single Spouse name: Not on file Number of children: Not on file Years of education: Not on file Highest education level: Not on file Occupational History Not on file Tobacco Use Smoking status: Every Day Current packs/day: 0.50 Average packs/day: 0.5 packs/day for 41.7 years (20.8 ttl pk-yrs) Types: Cigarettes Start date: 1983 Smokeless tobacco: Never Vaping Use Vaping status: Never Used Substance and Sexual Activity Alcohol use: Never Drug use: Never Sexual activity: Not on file Other Topics Concern Not on file Social History Narrative Not on file Social Drivers of Health Food Insecurity: Not on file (04/24/2025) Transportation Needs: No Transportation Needs (04/24/2025) Transportation Needs Patient needs follow up regarding:: 1 Feeling Safe: Not At Risk (04/24/2025) Feeling Safe Patient has indicated abuse: : No Housing Stability: Not on file Medications Prior to Admission: None Review of Systems Constitutional: negative for fevers, chills, sweats, anorexia, weight loss Skin/integument: negative for rashes, pruritis Musculoskeletal: negative for hot, swollen joints, neck pain, back pain Eyes: negative for visual loss, diplopia, eye pain Ears, nose, throat: negative for hearing loss, tinnitus, sinus pain, sore throat Endocrine: negative for polyuria, polydipsia, thyroid disease Respiratory: positive for emphysema Cardiovascular: negative, negative for chest pain, dyspnea, orthopnea, syncope, edema Gastrointestinal: negative for nausea, vomiting, diarrhea, melena, hematochezia, hematemesis, abdominal pain Genitourinary: negative for dysuria, hematuria, frequency Hematologic: negative for anemia, easy bruisability, bleeding, lymphadenopathy Neurological: negative, negative for unilateral motor or sensory loss, dementia Behavioral/Psych: negative, negative for depression, anxiety Allergic/Immunologic: negative, negative for urticaria, angioedema Objective: BP (!) 148/106 (BP Location: Right arm, Patient Position (BP): Supine) Pulse 93 Temp 97.7 ??F (36.5 ??C) (Temporal) Resp 16 Ht 5' 11 (1.803 m) Wt 70.9 kg (156 lb 4.9 oz) SpO2 93% BMI 21.80 kg/m?? General appearance: active, alert, in no distress, appears older than stated age, well-developed, well-nourished, in no acute distress Musculoskeletal: no obvious skeletal deformities Back: no kyphosis or scoliosis HEENT: pupils equal and reactive, hearing grossly intact, present and adequate Lungs: clear to auscultation bilaterally, pigtail chest tube left Chest wall: no tenderness, subQ emphysema through out Heart: normal S1 and S2, without murmurs, rubs or gallops. Regular rhythm. Abdomen: soft and non-tender. Normal bowel sounds present. No hepatosplenomegaly. No masses. Genital/Rectal: deferred Extremities: no cyanosis, clubbing or edema Neurologic: grossly intact and non-focal Pulses: carotid pulses 2+ and symmetric. No carotid bruits. Skin: warm and dry Lymph: Axillary, cervical, supraclavicular, umbilical, and inguinal nodes without adenopathy. Labs: Lab Results Component Value Date/Time WBC 12.0 (H) 04/28/2025 05:20 AM HGB 14.2 04/28/2025 05:20 AM HGBPOC 15.7 04/25/2025 08:22 AM HCT 42.7 04/28/2025 05:20 AM HCTPOC 47 04/25/2025 08:22 AM PLT 295 04/28/2025 05:20 AM MCV 88.8 04/28/2025 05:20 AM Lab Results Component Value Date/Time NA 135 (L) 04/29/2025 05:54 AM K 4.5 04/29/2025 05:54 AM CL 100 04/29/2025 05:54 AM CO2 23 04/29/2025 05:54 AM CA 9.2 04/29/2025 05:54 AM BUN 44 (H) 04/29/2025 05:54 AM CREAT 1.97 (H) 04/29/2025 05:54 AM GLUCOSE 114 (H) 04/29/2025 05:54 AM ANIONGAP 12 04/29/2025 05:54 AM Imaging: CXR: Results for orders placed during the hospital encounter of 04/24/25 XR CHEST PA OR AP 1 VW Narrative EXAM: XR CHEST PA OR AP 1 VW DATE/TIME OF EXAM: 04/30/2025 4:45 AM REASON FOR EXAM: Pneumothorax DIAGNOSIS: See Reason for Exam COMPARISON: 04/29/2025 FINDINGS: - Lines/tubes: Pigtail pleural drainage catheter along the periphery of the left hemithorax is unchanged in position. No new support apparatus. - Cardiomediastinal: Contours are within normal limits. - Lungs/pleura: Within limitations of extensive soft tissue emphysema throughout the chest wall, no definitive new pulmonary opacities or edema. Questionable tiny left apical pneumothorax, decreased compared to yesterday. No significant pleural effusion. - Bones and soft tissues: Persistent extensive soft tissue emphysema throughout the left chest wall. - Additional comments: None. Impression 1. Probable tiny left apical pneumothorax, decreased in size compared to yesterday. 2. Otherwise no significant interval change. CT Chest: Exam: CT CHEST WO CONTRAST Date/Time of Exam: 04/30/2025 12:01 PM Reason For Exam: Pneumothorax. Diagnosis: See Reason for Exam. Technique: CT of the chest was performed without the administration of intravenous contrast. Comparison: April 30, 2025. FINDINGS: Evaluation of the vasculature is limited without the use of contrast. There is a left-sided chest tube. There is a large left pneumothorax with atelectasis of the left upper and lower lobes. There is masslike consolidation in the left lower lobe which is also favored to represent atelectasis. This measures approximately 48 x 23 mm in size (3-2 98). There is mild right lower lobe atelectasis. There is advanced mixed centrilobular and paraseptal emphysema. The airways appear clear. There is pneumomediastinum present. There is subcutaneous air seen throughout the neck and visualized chest and abdominal whiteside. Numerous hypodense renal lesions compatible with cysts. Single small hyperdense left renal lesion compatible with hemorrhagic or proteinaceous cyst. No destructive lytic or sclerotic bone lesions. IMPRESSION: 1. Large left pneumothorax with left-sided chest tube, pneumomediastinum and subcutaneous emphysema. 2. Masslike opacity in the left lower lobe is favored to represent atelectasis or an infectious/inflammatory process however, neoplasm cannot be excluded. Short interval follow-up chest CT in one month to assess for resolution. 3. Advanced pulmonary emphysema. Assessment: Active Hospital Problems Diagnosis Chronic kidney disease, stage IV (severe) (CMS/HCC) Acute respiratory failure with hypoxia (CMS/HCC) Secondary spontaneous pneumothorax Cigarette smoker Elevated serum creatinine Hyperkalemia Resolved Hospital Problems No resolved problems to display. Plan/Recommendations: Follow up CXR this afternoon, re: CT chest result -large PTX. Pt transported to CT without suction on chest tube. Keep CT on suction all the time, even when transport and ambulation Possible [place] pleurodesis this weekend. will discuss possible Endobronchial Valve placement sometime next week. Request to transfer patient to . Rest of care per primary team. Thank you for this consult. CT Surgery will continue to follow. Patient understood and agreed to the above plan Patient seen and evaluated with Dr Wilbert Shaw NP 04/30/2025 8:49 AM Cosigned by Puma Atkins MD at 04/30/2025 4:58 PM CDT * Liset William, - 04/26/2025 8:25 AM CDT Nephrology Consult Patient is seen in consultation for ckd stage [address] Beauchamp. he is a 60 y.o. male admitted for chest pain on 04/24/2025. He was found with large spontaneous pnx on left, CT tube placed. Had been referred to us for ckd 4as outpt, had been told in past he had ckd and believes he saw hand knitter a few years ago. Does not know his baseline gft but on our referral paperwork gfr baselinewas 29. He had ct with noted renal cysts. HE was started on farxiga 2-3 years ago. Creat in Apr 2024 was 2.1. Has history of tobacco use, hypertension and ckd as noted Nopt urine studies or imaging obtained here prior to consult. Meds and allergies reviewed. Chart and problem list reviewed. Labs that are available reviewed. No past surgical history on file. No past medical history on file. Social History Tobacco Use Smoking status: Every Day Current packs/day: 0.50 Average packs/day: 0.5 packs/day for 41.7 years (20.8 ttl pk-yrs) Types: Cigarettes Start date: 1983 Smokeless tobacco: Never Substance Use Topics Alcohol use: Never No family history on file. No medications prior to admission. has a current medication list which includes the following Facility-Administered Medications: sodium zirconium cyclosilicate, hydralazine, labetalol, umeclidinium, dextrose 5 %, hydrocodone-acetaminophen, hydromorphone (pf), naloxone, sodium chloride, sodium chloride, sodium chloride 0.9 %, dextrose 5 % in water, acetaminophen, ondansetron, nicotine, albuterol sulfate, ipratropium- albuterol, and heparin. Review of Systems - General ROS: negative for weight changes, fever Respiratory ROS: some sob Cardiovascular ROS: negative for chest pain or dyspnea on exertion Gastrointestinal ROS: negative for reflux, abdominal pain, change in bowel habits, or black or bloody stools Genito-Urinary ROS: negative for dysuria, trouble voiding, or hematuria Musculoskeletal ROS: negative for back pain, neck pain or joint pain or swelling All others are negative Physical Exam BP 112/75 (BP Location: Left arm, Patient Position (BP): Sitting) Pulse (!) 116 Temp 98.2 ??F (36.8 ??C) (Axillary) Resp 18 Ht 5' 11 (1.803 m) Wt 75.6 kg (166 lb 10.7 oz) SpO2 94% BMI 23.25 kg/m?? Intake/Output Summary (Last 24 hours) at 04/26/2025 0825 Last data filed at 04/26/2025 0500 Gross per 24 hour Intake -- Output 1265 ml Net -1265 ml BP 112/75 (BP Location: Left arm, Patient Position (BP): Sitting) Pulse (!) 116 Temp 98.2 ??F (36.8 ??C) (Axillary) Resp 18 Ht 5' 11 (1.803 m) Wt 75.6 kg (166 lb 10.7 oz) SpO2 94% BMI 23.25 kg/m?? General: Alert, cooperative, no distress, appears stated age. Head: Normocephalic, without obvious abnormality, atraumatic. Eyes: Conjunctivae/corneas clear. PERRL, EOMs intact. Neck: Supple, symmetrical, trachea midline, no adenopathy, thyroid: no enlargment/tenderness/nodules, no carotid bruit and no JVD. Lungs: Clear to auscultation bilaterally. Chest wall: No deformity or tenderrnss Heart: Regular rate and rhythm, S1, S2 normal, no murmur, click, rub or gallop. Abdomen: Soft, non-tender. Bowel sounds normal. No masses, No organomegaly. : deferrd Extremities: Extremities normal, atraumatic, no cyanosis or edema. Pulses: 2+ and symmetric all extremities. Skin: Skin color, texture, turgor normal. No rashes or lesions. NEURO: nonfocal BACK: no kyphosis or scoliosis ASSESMENT/PLAN ckd 4 with possible adpkd-( unable to determine) at baseline -brennan testing as outpt -Renal ultrasound -Urine studies -upc, pth, vitamin d -no nsaids 2. Hyperkalemia- - restrict diet -avoid aldactone Avoid acei 3j. Hypertension- well controlled - no acei, arb, aldactone for now -goal < 130/80 Liset William DO * Brayden Trammell MD - 04/24/2025 3:44 PM CDTAssociated Order(s): IP CONSULT TO PULMONOLOGY [facility] Initial Visit Note Referred by: Rocky Gibson DO Reason for Referral Pneumothorax IMPRESSION & RECOMMENDATIONS: Secondary spontaneous pneumothorax Bronchopleural fistula Suspected emphysema Current smoker Elevated creatinine Hyperkalemia -Secondary spontaneous pneumothorax suspected secondary to severe emphysema - Chest tube having airleak-suspect small bronchopleural fistula leak present only on expiration - Continue chest tube to suction at -20 cm H2O - Patient cannot be disconnected from suction for any movement outside the room will need portable suction if moved - Strongly encourage patient to completely quit smoking - Will need daily serial x-rays-will follow - Pain control -Elevated creatinine unclear origin no previous labs available no history given by patient? CARRIE versus CKD will need additional records - Mild hyperkalemia-defer management to hospital medicine - DVT aprbudctlrg-coxyamr-gdjf restricted movement patient is at risk for development of DVT Discussed above plan in detail with Rocky Gibson DO Thank you so much for allowing me to participate in the care of Froylan Yan Please feel free to call with questions. History of presenting illness: Froylan Yna is an 60 y.o. male admitted to the hospital on 04/24/2025 referred by Rocky Gibson DO for evaluation and treatment of pneumothorax 60-year-old male with more than 40-year history of smoking presented to [facility] with sudden onset of chest pain this morning patient had pain in the left side of chest radiating to the neck and arm thought he was having a heart attack presented to the ER there, chest x-ray showed enlarged left pneumothorax emergent chest tube-pigtail catheter was placed in the ER and patient was transferred to medicine for higher level of care Patient denies any history of trauma no previous history of pneumothorax. No personal history of chronic lung disease. Patient has been smoking but has never been diagnosed with COPD or emphysema. Nohistory of wheezing. Has not been on any inhalers at home. No family history of pneumothorax. No family history of chronic lung disease. No occupational risk factors identified patient currently is unemployed Smoking history Social History Tobacco Use Smoking Status Every Day Current packs/day: 0.50 Average packs/day: 0.5 packs/day for 41.7 years (20.8 ttl pk-yrs) Types: Cigarettes Start date: 1983 Smokeless Tobacco Never I reviewed past medical history, surgical history, social history, family history, allergies and medications relevant to this visit Review of Systems Constitutional: Negative for chills, fever and weight loss. HENT: Negative for congestion and sore throat. Respiratory: Positive for shortness of breath. Negative for cough, hemoptysis, sputum production and wheezing. Cardiovascular: Positive for chest pain. Negative for palpitations, orthopnea, leg swelling and PND. Gastrointestinal: Negative for heartburn, nausea and vomiting. Genitourinary: Negative. Musculoskeletal: Negative for joint pain. Skin: Negative for rash. Neurological: Negative for dizziness, focal weakness, weakness and headaches. Endo/Heme/Allergies: Does not bruise/bleed easily. Psychiatric/Behavioral: The patient does not have insomnia. Relevant medical conditions Diagnostic Reports: The following images/results were personally interpreted and reviewed by me Chest imaging personally interpreted from outside medical records. Chest x-ray which shows a large left pneumothorax and subsequent chest x-ray shows improvement in pneumothorax with placement of thepigtail catheter. Lab review Elevated creatinine elevated potassium leukocytosis Weight Trend Last 10 encounters Wt Readings from Last 10 Encounters: 04/24/25 75.6 kg (166 lb 10.7 oz) Body mass index is 23.25 kg/m??. Diagnostics Review: Lab Results Component Value Date WBC 17.2 (H) 04/24/2025 HGB 14.6 04/24/2025 HCT 44.5 04/24/2025 PLT 303 04/24/2025 MCV 91.8 04/24/2025 Lab Results Component Value Date NA 138 04/24/2025 K 5.7 (H) 04/24/2025 CL 104 04/24/2025 CO2 21 (L) 04/24/2025 CA 9.1 04/24/2025 BUN 45 (H) 04/24/2025 CREAT 2.23 (H) 04/24/2025 GLUCOSE 114 (H) 04/24/2025 TOTALPROTEIN 7.0 04/24/2025 ALBUMIN 4.4 04/24/2025 BILITOTAL 0.2 04/24/2025 ALKPHOS 85 04/24/2025 AST 31 04/24/2025 ALT 36 04/24/2025 ANIONGAP 13 04/24/2025 Examination: BP (!) 161/100 (BP Location: Right arm, Patient Position (BP): Supine) Pulse 81 Temp 97.4 ??F (36.3 ??C) (Oral) Ht 5' 11 (1.803 m) Wt 75.6 kg (166 lb 10.7 oz) BMI 23.25 kg/m?? Physical Exam Vitals reviewed. Constitutional: General: He is not in acute distress. Cardiovascular: Rate and Rhythm: Normal rate and regular rhythm. Pulses: Normal pulses. Heart sounds: Normal heart sounds. Pulmonary: Effort: Pulmonary effort is normal. No respiratory distress. Breath sounds: Normal breath sounds. No wheezing, rhonchi or rales. Comments: 14 [place] pigtail chest tube on suction with mild end expiratory airleak Neurological: General: No focal deficit present. Mental Status: He is alert and oriented to person, place, and time. Psychiatric: Mood and Affect: Mood normal. documented in this encounter Miscellaneous Notes * Care Plan - Natasha Andersen RN - 05/26/2025 9:56 AM CDT 05/26/25 0955 Final Discharge Arrangements Final Discharge Disposition Home Follow-up appointments scheduled? Other (Comment) (See AVS) Transportation Provider [facility] Date Of Pick-Up 05/26/25 Time Of Pick-Up 0956 Copy of this transfer form will be sent with patient along with: AVS Problem: Discharge Planning Goal: Identify discharge needs upon admission and through discharge Description: Outcome: Progressing Telesales Supervisor Discharge Planning Pt finally going home today. Transport provided by [facility] to [place] approved by Bonita Hadley. Expected Discharge Date May 26, 2025 Plan Discharge To: Home or Self Care (05/25/25 1019) Plan Discharge To - Alternate: Home or Self Care (05/25/25 101) Family/Caregiver Assist Does the patient have family and/or a caregiver that is willing, able and available to assist if needed?: No (05/25/25 1019) Reason: Pt lives alone (04/28/25 1216) Referrals Status: Facility Referrals - Pending Follow-up on Referrals Sent: No (05/25/25 101) Preferred Pharmacy: [facility] [address] Patient / Family Communications: Patient/Family Communications: Plan Discharge To Update (05/24/25 121) Discharge Plan Agreed Upon: Patient (05/24/25 121) Resources Provided: Resource List Given: Care facilities (05/03/25 1119) Resource List Given To: Patient (05/03/25 1119) Transportation Plan: Has discharge transport been arranged?: No (05/25/25 101) Follow Up Appointments Scheduled Follow-up appointments scheduled?: Other (Comment) (See AVS) (05/26/25 09) Natasha Andersen RN * Care Plan - Francisca Sandoval RN - 05/25/2025 5:00 PM CDT Shift Summary HYDROcodone-acetaminophen was administered for left rib cage pain, resulting in improved comfort later in the shift. Patient ambulated independently in the [place] and transferred without assistance, demonstrating maintained mobility and functional status. Chest tube sites were observed and skin integrity was monitored, with no new concerns documented. Respiratory status remained consistent, with coarse breath sounds and dyspnea on exertion noted butno acute changes. Overall, patient maintained stable comfort, mobility, and respiratory function throughout the shift. Infection Risk/Actual: Infection prevention, control, or resolution by discharge: No fever was noted and chest tube sites were observed; no new concerns related to infection were documented during the shift. * Query - Marie Eduardo MD - 05/25/2025 1:08 PM CDT Question: Clarify if the diagnosis of pneumonia found in the progress notes, is an active/current diagnosis/condition for this current admission: Answer: NOT an active/current diagnosis/condition * Care Plan - Natasha Andersen RN - 05/25/2025 10:19 AM CDT Problem: Discharge Planning Goal: Identify discharge needs upon admission and through discharge Description: Outcome: Progressing Met with pt at bedside. Pt voiced no needs at this time. Will continue to follow. * Care Plan - Roseann Bustamante RN - 05/24/2025 5:39 PM CDT Shift Summary Chest X-ray was performed and reported no evidence of pneumothorax. Sodium chloride 0.9% and sodium zirconium cyclosilicate were administered during the shift. Lidocaine and heparin were both refused. Chest tube sites and dressings remained dry and intact, with no changes in output or appearance. Overall, respiratory and neurovascular status remained consistent with baseline, and no acute changes were noted. Achieve optimal respiratory function by discharge and/or maintain baseline function: Respiratory status remained stable throughout the shift, with diminished breath sounds and dyspnea on exertion persisting, but no changes in oxygen therapy or chest tube output; chest imaging reported no evidence of pneumothorax. Maintain skin integrity and/or promote wound healing by discharge: Chest tube insertion sites and dressings on both left and right remained dry, intact, and without redness or drainage changes duringthe shift. Achieve optimal peripheral neurovascular function by discharge or maintain baseline function: Peripheral pulses and limb color remained unchanged and weak throughout the shift, with persistent numbness and tingling in the left upper extremity. * Care Plan - Natasha Andersen RN - 05/24/2025 12:12 PM CDT Problem: Discharge Planning Goal: Identify discharge needs upon admission and through discharge Description: Outcome: Progressing Telesales Supervisor Discharge Planning No needs at this time. Pt improving and making great progress towards going home. Expected Discharge Date May 27, 2025 Plan Discharge To: Home or Self Care (05/24/25 121) Plan Discharge To - Alternate: Home or Self Care (05/24/251210) Family/Caregiver Assist Does the patient have family and/or a caregiver that is willing, able and available to assist if needed?: No (05/24/25 121) Reason: Pt lives alone (04/28/25 1216) Referrals Status: Facility Referrals - Pending Follow-up on Referrals Sent: No (05/24/251210) Preferred Pharmacy: [facility] Patient / Family Communications: Patient/Family Communications: Plan Discharge To Update (05/24/251210) Discharge Plan Agreed Upon: Patient (05/24/25 121) Resources Provided: Resource List Given: Care facilities (05/03/25 1119) Resource List Given To: Patient (05/03/25 111) Transportation Plan: Has discharge transport been arranged?: No (05/24/251210) Follow Up Appointments Scheduled Natasha Andersen RN * Care Plan - Tari Webster RN - 05/21/2025 6:15 PM CDT Shift Summary Chest x-ray in the morning showed no residual left pneumothorax and persistent left lung base consolidation. cefTRIAXone (ROCEPHIN) was administered and then stopped in the morning. Chest tube output for the pleural tube increased in the afternoon, with dressing remaining dry and intact. Pain was reported in the back late in the shift and managed with HYDROcodone- acetaminophen, acetaminophen, and methocarbamol. Overall, respiratory and musculoskeletal function were maintained, and skin integrity was preserved. Infection Risk/Actual: Infection prevention, control, or resolution by discharge: Dressings on bothchest tubes remained dry and intact throughout the shift, and cefTRIAXone (ROCEPHIN) was administered and then stopped in the morning; no new drainage characteristics were noted and temperature remained within normal limits. Achieve optimal respiratory function by discharge and/or maintain baseline function: Breath sounds remained diminished throughout all wang, chest tube output increased in the afternoon for the pleural tube, and the patient continued on room air with stable respiratory rates; chest x-ray showed no residual left pneumothorax and persistent consolidation at the left lung base. Achieve optimal musculoskeletal function by discharge or maintain baseline function: Ambulation distance was maintained, mobility level remained independent, and musculoskeletal status was documentedas within defined limits. Maintain skin integrity and/or promote wound healing by discharge: Skin was documented as within defined limits and Lopez score indicated low risk, with no changes in moisture or friction noted. * Care Plan - Natasha Andersen RN - 05/21/2025 11:59 AM CDT Problem: Discharge Planning Goal: Identify discharge needs upon admission and through discharge Description: Outcome: Progressing Telesales Supervisor Discharge Planning Pt up walking int he [place] today. Looks amazing, no DC needs at this time, will continue to follow along. Expected Discharge Date May 24, 2025 Plan Discharge To: Home or Self Care (05/21/25 115) Plan Discharge To - Alternate: Home or Self Care (05/21/251158) Family/Caregiver Assist Does the patient have family and/or a caregiver that is willing, able and available to assist if needed?: No (05/21/251158) Reason: Pt lives alone (04/28/25 1216) Referrals Status: Facility Referrals - Pending Follow-up on Referrals Sent: No (05/21/251158) Preferred Pharmacy: [facility] [address] Patient / Family Communications: Patient/Family Communications: Plan Discharge To Update (05/21/251158) Discharge Plan Agreed Upon: Patient (05/21/251158) Resources Provided: Resource List Given: Care facilities (05/03/251118) Resource List Given To: Patient (05/03/251118) Transportation Plan: Has discharge transport been arranged?: No (05/21/251158) Follow Up Appointments Scheduled Natasha Andersen RN * Care Plan - Tari Webster RN - 05/20/2025 6:23 PM CDT Shift Summary cefTRIAXone (ROCEPHIN) was administered and then stopped during the morning, with Lidocaine and heparin both refused. Chest tube sites and dressings remained dry and intact, with no air leaks or redness noted at insertion sites throughout the shift. Breath sounds remained diminished and chest tube output was minimal and serosanguineous, with vitalsigns fluctuating but returning closer to baseline by the end of the shift. Discharge planning was reviewed, with home or self-care as the anticipated plan, but no transport or family/caregiver support was arranged. Overall, comfort was maintained and skin integrity preserved during the shift. Verbalizes/displays acceptable comfort level or baseline comfort level: No pain was reported throughout the shift and no pain interventions were required. Infection Risk/Actual: Infection prevention, control, or resolution by discharge: Dressings on bothchest tube sites remained dry and intact, insertion sites were intact without redness, and cefTRIAXone (ROCEPHIN) was administered and then stopped during the morning; no air leaks were noted on either chest tube system. Identify discharge needs upon admission and through discharge: Discharge planning was reviewed withthe patient, with home or self-care as the anticipated plan, but no discharge transport was arranged and no family/caregiver support was available. Achieve optimal respiratory function by discharge and/or maintain baseline function: Breath sounds remained diminished throughout all wang, chest tube output was minimal and serosanguineous, and respiratory rate and heart rate fluctuated but returned closer to baseline by the end of the shift. Maintain skin integrity and/or promote wound healing by discharge: Skin assessments remained withindefined limits and Lopez score indicated low risk for skin breakdown; no impairment or moisture issues were noted and friction/shear was not a problem. * Care Plan - Natasha Andersen RN - 05/20/2025 11:53 AM CDT Problem: Discharge Planning Goal: Identify discharge needs upon admission and through discharge Description: Outcome: Progressing Telesales Supervisor Discharge Planning Pt improving everyday, declined to go to [facility] in [place] stating it is too far. Sara richardson [place] spoke with him and he still declined to go. Expected Discharge Date May 24, 2025 Plan Discharge To: Home or Self Care (05/20/25 1152) Plan Discharge To - Alternate: [facility] (05/20/25 115) Family/Caregiver Assist Does the patient have family and/or a caregiver that is willing, able and available to assist if needed?: No (05/20/25 115) Reason: Pt lives alone (04/28/25 1216) Referrals Status: Facility Referrals - Pending Follow-up on Referrals Sent: No (05/20/25 115) Preferred Pharmacy: [facility] [address] Patient / Family Communications: Patient/Family Communications: Plan Discharge To Update (05/19/251127) Discharge Plan Agreed Upon: Patient (05/19/251127) Resources Provided: Resource List Given: Care facilities (05/03/25 1119) Resource List Given To: Patient (05/03/25 111) Transportation Plan: Has discharge transport been arranged?: No (05/20/25 115) Follow Up Appointments Scheduled Natasha Andersen RN * Care Plan - Natasha Andersen RN - 05/19/2025 11:29 AM CDT Problem: Discharge Planning Goal: Identify discharge needs upon admission and through discharge Description: Outcome: Progressing Telesales Supervisor Discharge Planning Suction down to -20, improving according to CTS, will continue to follow for DC needs. Per conversation yesterday, pt does not want to go to [facility] on [place]. Expected Discharge Date May 20, 2025 Plan Discharge To: Home or Self Care (05/19/25 112) Plan Discharge To - Alternate: [facility] (05/19/251127) Family/Caregiver Assist Does the patient have family and/or a caregiver that is willing, able and available to assist if needed?: No (05/19/251127) Reason: Pt lives alone (04/28/25 1216) Referrals Status: Facility Referrals - Pending Follow-up on Referrals Sent: No (05/19/251127) Preferred Pharmacy: [facility] [place] [facility] [address] [facility] Patient / Family Communications: Patient/Family Communications: Plan Discharge To Update (05/19/251127) Discharge Plan Agreed Upon: Patient (05/19/251127) Resources Provided: Resource List Given: Care facilities (05/03/25 1119) Resource List Given To: Patient (05/03/25 1119) Transportation Plan: Has discharge transport been arranged?: No (05/19/251127) Follow Up Appointments Scheduled Natasha Andersen RN * Care Plan - Alma Fisher RCP - 05/18/2025 2:45 PM CDT Images from the original note were not included. Respiratory Patient Care Assessment S- Patient appears unlabored. Arielle Yan is a 60 y.o. male admitted for Spontaneous Pneumothorax Left (6.8 cm) CHEST TUBE on 04/24/2025 1:46 PM. Patient is sleeping on RA Social History Tobacco Use Smoking status: Every Day Current packs/day: 0.50 Average packs/day: 0.5 packs/day for 41.7 years (20.9 ttl pk-yrs) Types: Cigarettes Start date: 1983 Smokeless tobacco: Never Vaping Use Vaping status: Never Used Substance Use Topics Alcohol use: Never Drug use: Never Prior to Admission medications Medication Sig Start Date End Date Taking? Authorizing Provider umeclidinium (INCRUSE ELLIPTA) 62.5 mcg/actuation Disk with Device Take 1 Puff by inhalation daily.05/11/25 Yes Jerry Moreno MD sodium bicarbonate 650 mg tablet Take 1 Tablet (650 mg) by mouth 2 times daily. 05/10/25 Yes Jerry Moreno MD nicotine (NICODERM CQ) 7 mg/24 hr patch Apply 1 Patch to skin as directed daily. 05/11/25 Yes Jerry Moreno MD albuterol sulfate HFA 90 mcg/actuation aerosol inhaler Take 2 Puffs by inhalation every 6 hours as needed for Shortness of Breath (home regimen with spacer). 05/10/25 Yes Jerry Moreno MD lisinopriL (PRINIVIL) 40 mg tablet Take 40 mg by mouth daily. Yes Provider, Historical dapagliflozin propanediol (Farxiga) 5 mg Tablet Take 5 mg by mouth daily. Yes Provider, Historical Lab Results Component Value Date/Time WBC 15.1 (H) 05/18/2025 04:54 AM HGB 13.3 (L) 05/18/2025 04:54 AM HGBPOC 15.7 04/25/2025 08:22 AM HCT 40.1 (L) 05/18/2025 04:54 AM HCTPOC 47 04/25/2025 08:22 AM PLT 555 (H) 05/18/2025 04:54 AM MCV 90.5 05/18/2025 04:54 AM Lab Results Component Value Date/Time NA 137 05/18/2025 04:54 AM K 5.1 05/18/2025 04:54 AM CL 103 05/18/2025 04:54 AM CO2 23 05/18/2025 04:54 AM CA 9.2 05/18/2025 04:54 AM BUN 31 (H) 05/18/2025 04:54 AM CREAT 1.73 (H) 05/18/2025 04:54 AM GLUCOSE 126 (H) 05/18/2025 04:54 AM ANIONGAP 11 05/18/2025 04:54 AM No results found for: CPK , CKMB , TROPONIN , TROPONIINT , TROPINTR Breath sounds reveal diminished . Last chest x-ray reveals FINDINGS: Left chest tubes remain in place. Tiny left pneumothorax has significantly improved from the prior exam. Extensive subcutaneous emphysema over the chest is again noted. Mild left basilar atelectasis/consolidation and questionable pleural effusion.. Cardiac silhouette is stable. Right lung is grossly clear. No new abnormality. Latest spirometry reveals: Unable to perform at this time A- to treat potential bronchospasms P- Patient educated on purpose and technique of therapy. Based on above, patient will be placed on Albuterol MDI Q4 PRN with spacer . Will reassess patient status PRN . Alma Fisher RCP * Care Plan - Natasha Andersen RN - 05/18/2025 11:52 AM CDT Problem: Discharge Planning Goal: Identify discharge needs upon admission and through discharge Description: Outcome: Progressing Telesales Supervisor Discharge Planning [facility] is reviewing pts case to see if he will qualify for their facility. Expected Discharge Date May 19, 2025 Plan Discharge To: Home or Self Care (05/18/25 115) Plan Discharge To - Alternate: [facility] (05/18/25 115) Family/Caregiver Assist Does the patient have family and/or a caregiver that is willing, able and available to assist if needed?: No (05/18/25 115) Reason: Pt lives alone (04/28/25 1216) Referrals Status: Facility Referrals - Pending Follow-up on Referrals Sent: Yes (05/18/25 115) Preferred Pharmacy: [facility] [address] Patient / Family Communications: Patient/Family Communications: Plan Discharge To Update (05/18/25 115) Discharge Plan Agreed Upon: Patient (05/18/25 115) Resources Provided: Resource List Given: Care facilities (05/03/25 1119) Resource List Given To: Patient (05/03/25 1119) Transportation Plan: Has discharge transport been arranged?: No (05/18/25 115) Follow Up Appointments Scheduled Natasha Andersen RN * Care Plan - Natasha Andersen RN - 05/17/2025 2:17 PM CDT Problem: Discharge Planning Goal: Identify discharge needs upon admission and through discharge Description: Outcome: Progressing Telesales Supervisor Discharge Planning Awaiting medical stability Expected Discharge Date May 19, 2025 Plan Discharge To: Home or Self Care (05/17/25 141) Plan Discharge To - Alternate: [facility] (05/17/25 141) Family/Caregiver Assist Does the patient have family and/or a caregiver that is willing, able and available to assist if needed?: No (05/17/25 141) Reason: Pt lives alone (04/28/25 1216) Referrals Status: Facility Referrals - Pending Follow-up on Referrals Sent: No (05/17/25 1417) Preferred Pharmacy: [address] Patient / Family Communications: Patient/Family Communications: Plan Discharge To Update (05/17/25 1417) Discharge Plan Agreed Upon: Patient (05/17/25 1417) Resources Provided: Resource List Given: Care facilities (05/03/25 1119) Resource List Given To: Patient (05/03/25 111) Transportation Plan: Has discharge transport been arranged?: No (05/17/25 141) Follow Up Appointments Scheduled Natasha Andersen RN * Care Plan - Natasha Andersen RN - 05/14/2025 10:56 AM CDT Problem: Discharge Planning Goal: Identify discharge needs upon admission and through discharge Description: Outcome: Progressing Telesales Supervisor Discharge Planning Met with pt at bedside. Pt voiced no needs at this time. Will continue to follow. Expected Discharge Date May 17, 2025 Plan Discharge To: Home or Self Care (05/14/25 1056) Plan Discharge To - Alternate: Home or Self Care (05/14/25 105) Family/Caregiver Assist Does the patient have family and/or a caregiver that is willing, able and available to assist if needed?: No (05/14/25 1056) Reason: Pt lives alone (04/28/25 1216) Referrals Status: Facility Referrals - Pending Follow-up on Referrals Sent: No (05/14/25 1056) Preferred Pharmacy: [address] Patient / Family Communications: Patient/Family Communications: Plan Discharge To Update (05/12/25 1227) Discharge Plan Agreed Upon: Patient (05/12/25 1227) Resources Provided: Resource List Given: Care facilities (05/03/25 1119) Resource List Given To: Patient (05/03/25 1119) Transportation Plan: Has discharge transport been arranged?: No (05/14/25 1056) Follow Up Appointments Scheduled Natasha Andersen RN * Care Plan - Francisca Hammer LPN - 05/12/2025 4:13 PM CDT Shift Summary hydrALAZINE was administered in the morning for elevated blood pressure, which subsequently improved. Chest x-rays were performed, with the first showing decreased pneumothorax size and the second showing no significant interval change compared to earlier in the day. Oxygen saturation improved to normal levels by the end of the shift after periods of fluctuation. Pain was consistently denied and comfort level remained stable throughout the shift. Overall, vital signs and assessments trended toward baseline or improved by the end of the shift. Verbalizes/displays acceptable comfort level or baseline comfort level: No pain or discomfort was reported throughout the shift, and pain assessments remained consistent with baseline comfort level. Infection Risk/Actual: Infection prevention, control, or resolution by discharge: Chest tube site was monitored and documented with no new comments; temperature remained stable and within normal range during the shift. Achieve optimal respiratory function by discharge and/or maintain baseline function: Oxygen saturation fluctuated but improved to normal levels by the end of the shift, and breath sounds remained unchanged; chest x-rays showed no significant interval change in pneumothorax appearance after initial improvement earlier in the day. Achieve optimal cardiovascular function by discharge or maintain baseline function: Blood pressure was elevated in the morning and improved after administration of hydrALAZINE, with heart rate and mean arterial pressure trending toward normal by the end of the shift. Achieve optimal peripheral neurovascular function by discharge or maintain baseline function: Peripheral neurovascular assessments remained within defined limits and hand roll threader operator strength was strong bilaterally throughout the shift. * Care Plan - Natasha Andersen RN - 05/12/2025 12:27 PM CDT Problem: Discharge Planning Goal: Identify discharge needs upon admission and through discharge Description: Outcome: Progressing Telesales Supervisor Discharge Planning Awaiting medical stability. No longer a [facility] candidate. Will continue to follow along for needs Expected Discharge Date May 10, 2025 Plan Discharge To: Home or Self Care (05/12/25 1227) Plan Discharge To - Alternate: Home or Self Care (05/12/25 1227) Family/Caregiver Assist Does the patient have family and/or a caregiver that is willing, able and available to assist if needed?: No (05/12/25 122) Reason: Pt lives alone (04/28/25 1216) Referrals Status: Facility Referrals - Pending Follow-up on Referrals Sent: No (05/12/25 122) Preferred Pharmacy: [address] Patient / Family Communications: Patient/Family Communications: Plan Discharge To Update (05/12/251226) Discharge Plan Agreed Upon: Patient (05/12/251226) Resources Provided: Resource List Given: Care facilities (05/03/25 111) Resource List Given To: Patient (05/03/251118) Transportation Plan: Has discharge transport been arranged?: No (05/12/251226) Follow Up Appointments Scheduled Natasha Andersen RN * Care Plan - Natasha Andersen RN - 05/10/2025 11:52 AM CDT Problem: Discharge Planning Goal: Identify discharge needs upon admission and through discharge Description: Outcome: Progressing Telesales Supervisor Discharge Planning Awaiting a bed at [place] Expected Discharge Date May 10, 2025 Plan Discharge To: Transfer to Other Acute Facility (05/10/25 115) Plan Discharge To - Alternate: Transfer to Other Acute Facility (05/10/25 115) Referrals Status: Facility Referrals - Pending Follow-up on Referrals Sent: No (05/10/25 115) Preferred Pharmacy: [facility], [address] Patient / Family Communications: Patient/Family Communications: Confirmed Discharge Plan (05/10/25 115) Discharge Plan Agreed Upon: Patient (05/10/25 115) Resources Provided: Resource List Given: Care facilities (05/03/25 111) Resource List Given To: Patient (05/03/25 111) Transportation Plan: Has discharge transport been arranged?: No (05/10/25 115) Follow Up Appointments Scheduled Natasha Andersen RN * Care Plan - Natasha Andersen RN - 05/07/2025 12:43 PM CDT Problem: Discharge Planning Goal: Identify discharge needs upon admission and through discharge Description: Outcome: Progressing Telesales Supervisor Discharge Planning Pt continues to have a persistent air leak. Will continue to follow along for DC planning. Expected Discharge Date May 10, 2025 Plan Discharge To: Home or Self Care (05/07/25 124) Plan Discharge To - Alternate: [facility] (05/07/25 124) Family/Caregiver Assist Does the patient have family and/or a caregiver that is willing, able and available to assist if needed?: No (05/07/25 124) Reason: Pt lives alone (04/28/25 1216) Referrals Status: Facility Referrals - Pending Follow-up on Referrals Sent: No (05/07/25 124) Preferred Pharmacy: [facility] [address] Patient / Family Communications: Patient/Family Communications: Plan Discharge To Update (05/05/25 134) Discharge Plan Agreed Upon: Patient (05/04/25 1451) Resources Provided: Resource List Given: Care facilities (05/03/25 1119) Resource List Given To: Patient (05/03/25 1119) Transportation Plan: Has discharge transport been arranged?: No (05/07/25 124) Follow Up Appointments Scheduled Natasha Andersen RN * Care Plan - Natasha Andersen RN - 05/05/2025 1:47 PM CDT Problem: Discharge Planning Goal: Identify discharge needs upon admission and through discharge Description: Outcome: Progressing Telesales Supervisor Discharge Planning Air Leak remains, continuing to follow for DC planning Expected Discharge Date May 06, 2025 Plan Discharge To: Home or Self Care (05/05/25 134) Plan Discharge To - Alternate: [facility] (05/05/25 134) Family/Caregiver Assist Does the patient have family and/or a caregiver that is willing, able and available to assist if needed?: No (05/05/25 134) Reason: Pt lives alone (04/28/25 1216) Referrals Status: Facility Referrals - Pending Follow-up on Referrals Sent: No (05/05/251345) [facility] [address] Patient / Family Communications: Patient/Family Communications: Plan Discharge To Update (05/05/251345) Discharge Plan Agreed Upon: Patient (05/04/251450) Resources Provided: Resource List Given: Care facilities (05/03/251118) Resource List Given To: Patient (05/03/251118) Transportation Plan: Has discharge transport been arranged?: No (05/05/251345) Follow Up Appointments Scheduled Natasha Andersen RN * Care Plan - Natasha Andersen RN - 05/04/2025 2:51 PM CDT Problem: Discharge Planning Goal: Identify discharge needs upon admission and through discharge Description: Outcome: Progressing Telesales Supervisor Discharge Planning Pt out having a procedure at the time of rounds. Will continue to follow along for DC planning needs. Expected Discharge Date May 06, 2025 Plan Discharge To: Home or Self Care (05/04/251450) Plan Discharge To - Alternate: [facility] (05/04/251450) Family/Caregiver Assist Does the patient have family and/or a caregiver that is willing, able and available to assist if needed?: No (05/04/251450) Reason: Pt lives alone (04/28/25 1216) Referrals Status: Facility Referrals - Pending Follow-up on Referrals Sent: No (05/04/251450) Preferred Pharmacy: [facility] [place] [address] [address] Patient / Family Communications: Patient/Family Communications: Plan Discharge To Update (05/03/251118) Discharge Plan Agreed Upon: Patient (05/04/251450) Resources Provided: Resource List Given: Care facilities (05/03/251118) Resource List Given To: Patient (05/03/251118) Transportation Plan: Has discharge transport been arranged?: No (05/04/251450) Follow Up Appointments Scheduled Natasha Andersen RN * Care Plan - Elsi Quijano RN - 05/03/2025 12:35 PM CDT Shift Summary HYDROmorphone was administered PRN for severe pain in the left rib cage, and comfort interventions were provided later in the shift. Oxygen therapy was maintained at 1 L/min via nasal cannula, with SpO2 values mostly in the low 90s and diminished breath sounds noted. Discharge planning was actively discussed and resources for care facilities were provided, with agreement on discharge to home or self care and no caregiver support available. Chest X-ray revealed persistent loculated left basilar pneumothorax and increased atelectasis, and supplemental oxygen was continued. Overall, pain management and respiratory support were prioritized, and discharge planning progressed with patient involvement. Verbalizes/displays acceptable comfort level or baseline comfort level: Pain was described as stabbing and constant in the left rib cage, radiating to the back, with a high pain rating at rest and activity; HYDROmorphone was administered PRN and later in the shift, comfort measures such as linen and gown changes were performed, and the patient was resting quietly. Identify discharge needs upon admission and through discharge: Discharge planning was reviewed withthe patient and healthcare team, resources for care facilities were provided, and the patient agreed to a plan for discharge to home or self care, with no available caregiver support documented. Achieve optimal respiratory function by discharge and/or maintain baseline function: Oxygen therapyvia nasal cannula at 1 L/min was maintained throughout the shift, SpO2 values fluctuated but remained mostly in the low 90s, and breath sounds were diminished; chest imaging noted persistent loculated left basilar pneumothorax and increased atelectasis, with supplemental oxygen and monitoring interventions documented in the care plan. * Care Plan - Thuy Jameson MSW - 05/03/2025 11:17 AM CDT Telesales Supervisor Discharge Planning SW conducted chart review and noted per Natasha PATRICIA pt is agreeable to [facility]. Referral was sent to [facility] requesting chart review and consideration. Pt is Medicaid only.. No alternative payor. SW sent update to [facility] [place] and will continue to follow and assist with pt until DC ADD 1123 ELIS spoke to coordinator at [facility] [place] who shared that pt will likely DC home but that she willcontinue to follow pt should anything change. Pt not expecting to DC for a few days per pt chart. Expected Discharge Date May 06, 2025 Plan Discharge To: [facility] (04/28/25 121) Plan Discharge To - Alternate: Home or Self Care (04/25/25 1524) Referrals Status: Facility Referrals - Pending Follow-up on Referrals Sent: Yes (04/28/251215) Preferred Pharmacy: [facility] [address] Patient / Family Communications: Patient/Family Communications: Referral Status update (04/28/251215) Discharge Plan Agreed Upon: Patient (04/28/251215) Resources Provided: Resource List Given: Care facilities (04/28/251215) Resource List Given To: Patient (04/28/251215) Transportation Plan: Has discharge transport been arranged?: No (04/25/25 1524) Follow Up Appointments Scheduled ALEJANDRO Breen * Care Plan - Joao Paz RN - 05/02/2025 5:59 AM CDT Shift Summary Pain management required multiple interventions, but high pain levels persisted throughout the shift. Oxygen therapy was maintained at 6 L/min via nasal cannula, with SpO2 decreasing and breath sounds remaining diminished. Chest tube site and dressing remained dry and intact, with serosanguineous drainage and persistent air leak noted. Hygiene care was completed with [facility], and safety checks were consistently performed. Overall, comfort and respiratory function remained compromised, with ongoing pain and decreased oxygen saturation. Verbalizes/displays acceptable comfort level or baseline comfort level: Pain in the back and rib cage remained high throughout the shift, with pain ratings of 8-9 and two administrations of HYDROcodone-acetaminophen and one of HYDROmorphone (PF) for moderate pain; discomfort persisted at the end ofthe shift. Infection Risk/Actual: Infection prevention, control, or resolution by discharge: Chest tube insertion site and dressing remained dry and intact without redness, and hygiene care was performed with [facility]; no changes in dressing appearance or site condition were noted. Achieve optimal respiratory function by discharge and/or maintain baseline function: Oxygen therapycontinued at 6 L/min via nasal cannula, SpO2 decreased from 96% to 92%, breath sounds were diminished, and chest tube drainage increased with persistent air leak; dysfunctional breathing pattern persisted. * Care Plan - Tari Webster RN - 05/01/2025 6:26 PM CDT Shift Summary Chest tube was managed with periods of clamping and suction, and output increased later in the shift, with ongoing air leak and serosanguineous drainage documented. Pain was managed with PRN medications, resulting in a decrease in pain rating and change in pain quality. BLOOD CULTURE results were normal and chest tube dressing remained dry and intact, with no new infection-related concerns documented. Mobility and musculoskeletal status remained stable, with continued need for assistance and mild weakness. Overall, respiratory and musculoskeletal goals were maintained, pain was reduced, and discharge planning continued with home or self-care as the identified disposition. Verbalizes/displays acceptable comfort level or baseline comfort level: Pain in the back and rib cage decreased from a rating of 10 to 7 after administration of HYDROcodone-acetaminophen, with pain quality shifting from sharp/stabbing to stabbing/aching over the shift. Infection Risk/Actual: Infection prevention, control, or resolution by discharge: BLOOD CULTURE results were reported as normal and chest tube dressing remained dry and intact throughout the shift. Identify discharge needs upon admission and through discharge: Discharge planning identified home or self-care as the disposition, and the plan of care was reviewed with the patient multiple times during the shift. Achieve optimal respiratory function by discharge and/or maintain baseline function: SpO2 fluctuated but returned to baseline by end of shift, breath sounds remained diminished, and chest tube management included periods of clamping and suction with ongoing air leak and serosanguineous drainage; chest x-ray later in the shift described resolution of the left pneumothorax. Achieve optimal musculoskeletal function by discharge or maintain baseline function: Mobility levelremained consistent with ambulation requiring assistance, mild generalized muscle weakness persisted, and no additional musculoskeletal assessments were needed. * Care Plan - Kasia Beltrán RN - 04/29/2025 7:38 PM CDT Shift Summary Chest x-ray noted a small left pneumothorax with possible slight increase in size and extensive soft tissue emphysema. Blood cultures were drawn and are in progress, with no fever or new infection concerns documented. Patient ambulated with assistance and used the bedside commode, with mild muscle weakness persisting. Safety checks and fall risk assessments were completed with no falls or injuries reported. Patient remained on 2 L/min oxygen via nasal cannula, with SpO2 trending slightly downward but remaining above 90%. Infection Risk/Actual: Infection prevention, control, or resolution by discharge: No fever was noted and blood cultures are in progress; hygiene care was performed with CHG and linens were changed, with no new concerns documented this shift. Safety/Fall: Absence of fall, injury, harm during hospitalization: Safety checks were completed each shift, fall risk was acknowledged, and no falls or injuries were documented. Identify discharge needs upon admission and through discharge: Discharge planning was reviewed and disposition remains home or self-care, with plan of care discussed with the patient and healthcare team. Achieve optimal respiratory function by discharge and/or maintain baseline function: Oxygen was maintained at 2 L/min via nasal cannula throughout the shift, SpO2 trended slightly downward but remained above 90%, and dyspnea on exertion persisted; chest x-ray noted a small left pneumothorax with possible slight increase in size and extensive soft tissue emphysema. Achieve optimal musculoskeletal function by discharge or maintain baseline function: Mobility was promoted with ambulation and use of bedside commode, mild generalized muscle weakness persisted, and patient remained at Level 5 mobility with stand-by assist. * Care Plan - Manan Gordon RN - 04/29/2025 6:21 AM CDT Shift Summary Oxygen therapy was maintained at 2 L/min via nasal cannula throughout the shift, with SpO2 stable at 96%. Chest tube site remained intact and dressing was dry, with serosanguineous drainage observed and device maintained at -20 cm H2O. No pain or discomfort was reported, and pain interventions were addressed as needed. Safety checks were completed and fall risk interventions were in place, with no falls or injuries documented. Overall, comfort and respiratory support were maintained, and no acute complications were documented during the shift. Infection Risk/Actual: Infection prevention, control, or resolution by discharge: Chest tube insertion site remained intact without redness, and dressing was dry and intact; no abnormal temperature trends were observed. Safety/Fall: Absence of fall, injury, harm during hospitalization: Safety checks were completed, fall risk was reviewed, and low low bed was in use; no falls or injuries occurred during the shift. * Care Plan - Kasia Beltrán RN - 04/28/2025 5:39 PM CDT Shift Summary Oxygen therapy was maintained at 2 L/min via nasal cannula, with SpO2 ranging from 91-96% and persistent dyspnea on exertion. Blood cultures were collected and remain in progress, with no preliminary positive results reportedduring the shift. Mobility was supported through progressive position changes and ambulation with assistance, and mild muscle weakness persisted. Fall risk and safety checks were consistently reviewed and completed, with no disorientation or delirium noted. Comfort was maintained with no pain reported and hygiene care provided as needed. Infection Risk/Actual: Infection prevention, control, or resolution by discharge: Perineal hygiene was maintained with CHG bathing, and blood cultures remain in progress with no preliminary positive results reported during the shift. Safety/Fall: Absence of fall, injury, harm during hospitalization: Fall risk was reviewed and agreed upon each shift, safety checks were completed, and no disorientation or delirium was noted. * Care Plan - Natasha Price RN - 04/28/2025 12:18 PM CDT Problem: Discharge Planning Goal: Identify discharge needs upon admission and through discharge Description: Outcome: Progressing Telesales Supervisor Discharge Planning Expected Discharge Date Apr 30, 2025 Plan Discharge To: [facility] (04/28/251215) Plan Discharge To - Alternate: Home or Self Care (04/25/25 152) CM visited with the patient and discussed DC plans. Pt is not medically stable yet, but would likely be a good LTACH candidate. Pt is agreeable to a referral being sent. Referrals Status: Facility Referrals - Pending Follow-up on Referrals Sent: Yes (04/28/251215) Preferred Pharmacy: [facility] [address] Patient / Family Communications: Patient/Family Communications: Referral Status update (04/28/251215) Discharge Plan Agreed Upon: Patient (04/28/251215) Resources Provided: Resource List Given: Care facilities (04/28/251215) Resource List Given To: Patient (04/28/251215) Transportation Plan: Has discharge transport been arranged?: No (04/25/251523) Follow Up Appointments Scheduled Natasha Price RN * Care Plan - Tal Hsu RN - 04/28/2025 6:14 AM CDT Shift Summary Chest tube assessment revealed serosanguineous drainage and a persistent air leak, with the doctor previously notified. Oxygen therapy was maintained and SpO2 remained stable throughout the shift. No pain was reported and comfort was maintained during rest and sleep. High fall risk interventions and safety checks were completed, with no falls or injuries documented. Overall, respiratory support and safety measures were sustained, and comfort was preserved during the shift. Patient rested throughout shift, requesting pain medication at end of shift Infection Risk/Actual: Infection prevention, control, or resolution by discharge: Chest tube insertion site remained intact without redness and dressing was dry and intact; no abnormal temperature changes were noted during the shift. Safety/Fall: Absence of fall, injury, harm during hospitalization: High fall risk interventions were completed and safety checks were performed; no falls or injuries occurred during the shift. * Care Plan - Leia Lemon RN - 04/27/2025 5:30 AM CDT Shift Summary Oxygen therapy was started via nasal cannula at 4 L/min, resulting in improved oxygen saturation levels. Pain was managed with two administrations of HYDROcodone-acetaminophen, with periods of rest and sleep following each dose. Chest tube output was measured and the site remained intact without redness or dressing changes. Safety checks were completed and no falls or injuries occurred during the shift. Overall, respiratory function and comfort were supported, and no safety concerns were noted during the shift. Infection Risk/Actual: Infection prevention, control, or resolution by discharge: CBC results earlymorning showed elevated WBC and neutrophil counts, with no changes in chest tube site appearance ordressing integrity throughout the shift. Safety/Fall: Absence of fall, injury, harm during hospitalization: No falls, injuries, or safety concerns were documented during the shift, and safety checks were completed. * Care Plan - Mouna Norris RN - 04/26/2025 5:20 PM CDT Shift Summary HYDROcodone-acetaminophen was given in the afternoon for moderate pain in the left chest region, following non-pharmacologic interventions earlier in the shift. Chest tube dressing was changed in the afternoon, and the insertion site remained intact without redness or drainage concerns. Oxygen saturation improved over the course of the shift while on consistent oxygen therapy, and respiratory interventions were maintained. Patient progressed from ambulating with assistance to independent mobility by the end of the shift. Overall, the shift was marked by stable vital signs, effective pain management, and maintenance of respiratory support. Infection Risk/Actual: Infection prevention, control, or resolution by discharge: Chest tube insertion site remained intact without redness, and dressing was dry and intact with a change performed inthe afternoon; urinalysis showed no evidence of infection. Safety/Fall: Absence of fall, injury, harm during hospitalization: High fall risk interventions were completed and no falls or injuries were documented during the shift. * Care Dereje - Anna Muse RN - 04/25/2025 8:15 AM CDT Problem: Discharge Planning Goal: Identify discharge needs upon admission and through discharge Description: Outcome: Progressing Care Management Initial Assessment Initial Discharge Planning Assessment completed. Discussed Care Management's role and Discharge planning. Plan Discharge To: Home or Self Care Plan Discharge To - Alternate: Home or Self Care Does the patient have family and/or a caregiver that is willing, able and available to assist if needed? No - Reason: no one listed Comments: Patient is here due to air leak, worsening pneumothorax, has chest tube. Patient Discharge Planning Goal: to go home Patient will potentially discharge to a SNF/NH? No Care Management visited with: patient via in person. Prior to admission, patient resides at: own home. Prior to admission, living arrangements: lives alone. Prior to admission, patient's functional level:independent; uses N/A for mobility; needs assistancewith iADLs: N/A Community Ambulator: yes Prior to admission, the patient has the following DME? N/A Services in the home/community: none Receives hemodialysis? No Emergency contact(s): No emergency contact information on file. Prescription coverage: no Preferred Pharmacy verified: [facility] [address] Insurance coverage verified: Payor: MEDICAID / Plan: MEDICAID [place] / Product Type: Medicaid / Secondary Insurance:N/A Medicaid Status: NA Has [place] Benefits: no Plan for transportation at discharge: TBD Care Management contact information provided. Care Management will continue to follow and assist asneeded. * Care Plan - Mya Mistry PIPE BOWL PAINT TRIMMER - 04/24/2025 5:26 PM CDT Images from the original note were not included. Respiratory Patient Care Assessment S- Pt states his breathing is much better than it was previously. He also states he does to inhalers at home and does not do nebulizing breathing treatments. No treatment given at this time. Arielle Yan is a 60 y.o. male admitted for Spontaneous Pneumothorax Left (6.8 cm) CHEST TUBE on 04/24/2025 1:46 PM. Social History Tobacco Use Smoking status: Every Day Current packs/day: 0.50 Average packs/day: 0.5 packs/day for 41.7 years (20.8 ttl pk-yrs) Types: Cigarettes Start date: 1983 Smokeless tobacco: Never Vaping Use Vaping status: Never Used Substance Use Topics Alcohol use: Never Drug use: Never Prior to Admission medications Not on File Lab Results Component Value Date/Time WBC 17.2 (H) 04/24/2025 02:13 PM HGB 14.6 04/24/2025 02:13 PM HCT 44.5 04/24/2025 02:13 PM PLT 303 04/24/2025 02:13 PM MCV 91.8 04/24/2025 02:13 PM Lab Results Component Value Date/Time NA 138 04/24/2025 02:13 PM K 5.7 (H) 04/24/2025 02:13 PM CL 104 04/24/2025 02:13 PM CO2 21 (L) 04/24/2025 02:13 PM CA 9.1 04/24/2025 02:13 PM BUN 45 (H) 04/24/2025 02:13 PM CREAT 2.23 (H) 04/24/2025 02:13 PM GLUCOSE 114 (H) 04/24/2025 02:13 PM ANIONGAP 13 04/24/2025 02:13 PM No results found for: CPK , CKMB , TROPONIN , TROPONIINT , TROPINTR Breath sounds reveal diminished throughout . Last chest x-ray reveals IMPRESSION: 1. 10% left apical pneumothorax. 2. Left pleural drain tube is in place. 3. Bibasilar pulmonary contusions. Latest spirometry reveals: Unable to perform at this time A- Treat possible bronchospasms with bronchodilator. As needed, home regimen. P- Patient educated on purpose and technique of therapy. Based on above, patient will be placed on prn albuterol inhaler, home regimen. Add duoneb unit dosenebs prn. Will reassess patient status as warranted . Mya Mistry RCP documented in this encounter Plan of Treatment Upcoming Encounters Date Type Department Care Team (Late st Contact Info) Description 06/03/2025 9:00 AM CDT Appointment [facility] [address] [place] [address] Puma Atkins MD [address] [phone] 06/03/2025 10:30 AM CDT Office Visit [facility] Cardiothoracic Surgery [facility] [address] [phone] Scheduled Orders Name Type Priority Associated Diagnoses Orde r Schedule BASIC METABOLIC PANEL Lab Routine Chronic kidney disease, stage IV (severe) (CMS/HCC) Expected: 05/31/2025, Expires: 06/04/2025 Scheduled Referrals Name Type Priority Associated Diagnoses Orde r Schedule AMB REFERRAL TO [facility] Outpatient Referral Routine Secondary spontaneous pneumothorax Ordered: 05/26/2025 documented as of this encounter Procedures Procedure Name Priority Date/Time Associated Diagnosis Comments TELEMETRY REPORT 05/27/2025 2:40 AM CDT XR CHEST PA OR AP 1 VW Routine 05/26/2025 5:29 AM CDT BASIC METABOLIC PANEL Routine 05/26/2025 4:00 AM CDT POTASSIUM LEVEL Timed Study 05/25/2025 1:34 PM CDT XR CHEST PA OR AP 1 VW Timed Study 05/25/2025 11:49 AM CDT CBC WITHOUT DIFFERENTIAL Routine 05/25/2025 5:38 AM CDT BASIC METABOLIC PANEL Routine 05/25/2025 5:38 AM CDT XR CHEST PA OR AP 1 VW Routine 05/25/2025 4:12 AM CDT POTASSIUM LEVEL Timed Study 05/24/2025 2:13 PM CDT XR CHEST PA OR AP 1 VW Timed Study 05/24/2025 11:41 AM CDT BASIC METABOLIC PANEL Stat 05/24/2025 8:24 AM CDT XR CHEST PA OR AP 1 VW Routine 05/24/2025 5:13 AM CDT XR CHEST PA OR AP 1 VW Timed Study 05/23/2025 12:12 PM CDT BASIC METABOLIC PANEL Routine 05/23/2025 7:05 AM CDT XR CHEST PA OR AP 1 VW Routine 05/23/2025 5:38 AM CDT CBC WITH DIFFERENTIAL Routine 05/22/2025 9:40 AM CDT XR CHEST PA OR AP 1 VW Routine 05/22/2025 7:01 AM CDT XR CHEST PA OR AP 1 VW Pending Discharge 05/21/2025 4:23 AM CDT XR CHEST PA OR AP 1 VW Routine 05/20/2025 5:18 AM CDT CBC WITH DIFFERENTIAL Routine 05/20/2025 12:49 AM CDT RENAL FUNCTION PANEL Routine 05/20/2025 12:49 AM CDT XR CHEST PA OR AP 1 VW Routine 05/19/2025 4:58 AM CDT CBC WITH DIFFERENTIAL Routine 05/19/2025 1:47 AM CDT RENAL FUNCTION PANEL Routine 05/19/2025 1:47 AM CDT MRSA PCR RAPID SCREEN Routine 05/18/2025 5:50 PM CDT XR CHEST PA OR AP 1 VW Stat 05/18/2025 8:13 AM CDT RT ASSESS AND TREAT Routine 05/18/2025 7 :48 AM CDT CBC WITH DIFFERENTIAL Routine 05/18/2025 4:54 AM CDT RENAL FUNCTION PANEL Routine 05/18/2025 4:54 AM CDT XR CHEST PA OR AP 1 VW Pending Discharge 05/18/2025 4:36 AM CDT CBC WITH DIFFERENTIAL Routine 05/17/2025 11:11 PM CDT RENAL FUNCTION PANEL Routine 05/17/2025 11:11 PM CDT EKG 12-LEAD Stat 05/17/2025 12:53 PM CDT XR CHEST PA OR AP 1 VW Routine 05/17/2025 5:26 AM CDT XR CHEST PA OR AP 1 VW Routine 05/16/2025 6:03 AM CDT CBC WITH DIFFERENTIAL Routine 05/16/2025 5:00 AM CDT BASIC METABOLIC PANEL Routine 05/16/2025 5:00 AM CDT XR CHEST PA OR AP 1 VW Routine 05/15/2025 3:41 PM CDT CBC WITH DIFFERENTIAL Routine 05/15/2025 4:49 AM CDT XR CHEST PA OR AP 1 VW Pending Discharge 05/15/2025 4:32 AM CDT XR CHEST PA OR AP 1 VW Stat 05/14/2025 9:36 AM CDT XR CHEST PA OR AP 1 VW Stat 05/14/2025 7:25 AM CDT XR CHEST PA OR AP 1 VW Stat 05/13/2025 10:10 AM CDT XR CHEST PA OR AP 1 VW Routine 05/13/2025 4:44 AM CDT CBC WITH DIFFERENTIAL Routine 05/13/2025 1:10 AM CDT BASIC METABOLIC PANEL Routine 05/13/2025 1:10 AM CDT XR CHEST PA OR AP 1 VW Routine 05/12/2025 12:00 PM CDT XR CHEST PA OR AP 1 VW Routine 05/12/2025 9:05 AM CDT XR CHEST PA OR AP 1 VW Pending Discharge 05/11/2025 5:10 AM CDT PROCEDURE REPORT 05/10/2025 10:0 6 PM CDT PT AND APTT Routine 05/10/2025 9:26 AM CDT CBC WITH DIFFERENTIAL Routine 05/10/2025 9:26 AM CDT COMPREHENSIVE METABOLIC PANEL Routine 05/10/2025 9:26 AM CDT XR CHEST PA OR AP 1 VW Routine 05/10/2025 5:51 AM CDT XR CHEST PA OR AP 1 VW Routine 05/09/2025 4:35 AM CDT XR CHEST PA OR AP 1 VW Routine 05/08/2025 11:10 AM CDT XR CHEST PA OR AP 1 VW Stat 05/06/2025 2:32 PM CDT IR TUBE PLACEMENT Routine 05/06/2025 10: 45 AM CDT CBC WITH DIFFERENTIAL Stat 05/06/2025 7:39 AM CDT PROTIME-INR Stat 05/06/2025 7:39 AM CDT MAGNESIUM LEVEL Stat 05/06/2025 7:39 AM CDT BASIC METABOLIC PANEL Stat 05/06/2025 7:39 AM CDT XR CHEST PA OR AP 1 VW Routine 05/05/2025 8:58 AM CDT CBC WITHOUT DIFFERENTIAL Routine 05/05/2025 4:49 AM CDT BASIC METABOLIC PANEL Routine 05/05/2025 4:49 AM CDT XR CHEST PA OR AP 1 VW Stat 05/04/2025 1:21 PM CDT BRONCHOSCOPY 05/04/2025 10:56 AM CDT XR CHEST PA OR AP 1 VW Routine 05/04/2025 9:55 AM CDT XR CHEST PA OR AP 1 VW Routine 05/04/2025 4:43 AM CDT XR CHEST PA OR AP 1 VW Routine 05/03/2025 4:34 AM CDT XR CHEST PA OR AP 1 VW Routine 05/02/2025 5:30 AM CDT XR CHEST PA OR AP 1 VW Stat 05/01/2025 1:50 PM CDT XR CHEST PA OR AP 1 VW Routine 05/01/2025 10:32 AM CDT XR CHEST PA OR AP 1 VW Stat 05/01/2025 8:32 AM CDT EKG 12-LEAD Stat 05/01/2025 3:42 AM CDT XR CHEST PA OR AP 1 VW Stat 04/30/2025 3:[address] CHEST WO CONTRAST Routine 04/30/2025 12:01 PM CDT XR CHEST PA OR AP 1 VW Routine 04/30/2025 4:45 AM CDT BASIC METABOLIC PANEL Routine 04/29/2025 5:54 AM CDT XR CHEST PA OR AP 1 VW Routine 04/29/2025 4:45 AM CDT XR CHEST PA OR AP 1 VW Routine 04/28/2025 5:23 AM CDT CBC WITH DIFFERENTIAL Routine 04/28/2025 5:20 AM CDT COMPREHENSIVE METABOLIC PANEL Routine 04/28/2025 5:20 AM CDT PTH INTACT Routine 04/27/2025 6:21 AM CDT XR CHEST PA OR AP 1 VW Pending Discharge 04/27/2025 4:25 AM CDT CBC WITH DIFFERENTIAL Routine 04/27/2025 4:14 AM CDT COMPREHENSIVE METABOLIC PANEL Routine 04/27/2025 4:14 AM CDT EXTRA TUBE (URINE ROSAS) Routine 04/26/2025 11:40 AM CDT URINALYSIS W/REFLEX MICROSCOPIC Routine 04/26/2025 11:40 AM CDT BLOOD CULTURE Routine 04/26/2025 9:10 AM CDT BLOOD CULTURE Routine 04/26/2025 9:10 AM CDT BLOOD CULTURE Routine 04/26/2025 9:04 AM CDT VITAMIN D 25 HYDROXY Routine 04/26/2025 9:04 AM CDT BLOOD CULTURE Routine 04/26/2025 9:04 AM CDT XR CHEST PA OR AP 1 VW Routine 04/26/2025 8:31 AM CDT CBC WITHOUT DIFFERENTIAL Routine 04/26/2025 5:16 AM CDT BASIC METABOLIC PANEL Routine 04/26/2025 5:16 AM CDT BASIC METABOLIC PANEL Routine 04/25/2025 5:47 PM CDT BASIC METABOLIC PANEL Routine 04/25/2025 11:11 AM CDT POC GLUCOSE Routine 04/25/2025 10:21 AM CDT POC GLUCOSE Routine 04/25/2025 9:26 AM CDT XR CHEST PA OR AP 1 VW Routine 04/25/2025 8:33 AM CDT BLOOD GAS ARTERIAL Routine 04/25/2025 8: 22 AM CDT POC GLUCOSE Routine 04/25/2025 7:21 AM CDT TROPONIN 6 HR, 5TH GEN Timed Study 04/25/2025 5:27 AM CDT CBC WITH DIFFERENTIAL Routine 04/25/2025 5:27 AM CDT COMPREHENSIVE METABOLIC PANEL Routine 04/25/2025 5:27 AM CDT XR CHEST PA OR AP 1 VW Stat 04/25/2025 1:10 AM CDT POC GLUCOSE Routine 04/24/2025 11:55 PM CDT TROPONIN 2 HR, 5TH GEN Timed Study 04/24/2025 11:34 PM CDT XR CHEST PA OR AP 1 VW Stat 04/24/2025 9:43 PM CDT TROPONIN BASELINE, 5TH GEN Stat 04/24/2025 9:39 PM CDT EKG 12-LEAD Stat 04/24/2025 9:34 PM CDT POC GLUCOSE Routine 04/24/2025 9:25 PM CDT XR CHEST PA OR AP 1 VW Stat 04/24/2025 3:00 PM CDT RT ASSESS AND TREAT Routine 04/24/2025 2 :44 PM CDT PROTIME-INR Routine 04/24/2025 2:13 PM CDT CBC WITHOUT DIFFERENTIAL Routine 04/24/2025 2:13 PM CDT COMPREHENSIVE METABOLIC PANEL Routine 04/24/2025 2:13 PM CDT documented in this encounter Results * TELEMETRY REPORT (05/27/2025 2:40 AM CDT) us Provider Scanning ECG ORDERABLES Final Result * XR CHEST PA OR AP 1 VW (05/26/2025 5:29 AM CDT) Anatomical Region Laterality Modality Chest Computed Radiogr aphy 05/26/2025 5:29 AM CDT Impressions 05/26/2025 7:31 AM CDT IMPRESSION: Please see below. Exam: XR CHEST PA OR AP 1 VW Date/Time of Exam: 05/26/2025 5:29 AM Reason For Exam: Pneumothorax. Diagnosis: See Reason for Exam. Comparison: 05/25/2025. Findings: Apical lordotic projection obtained. The left chest tube has been removed. Stable cardiomediastinal silhouette with persistent small partially loculated left pleural effusion with left basilar and left midlung atelectasis versus airspace disease. The right lung is grossly clear. No right pleural effusion or definite pneumothorax is identified. Persistent subcutaneous emphysema about the lateral left chest wall and of the supraclavicular soft tissues present. Impression: 1. Interval removal of left sided chest tube with persistent loculated left pleural effusion with left basilar atelectasis versus airspace disease. Negative for definite pneumothorax. Narrative Procedure Note Isacc Rosado MD - 05/26/2025 IMPRESSION: Please see below. Exam: XR CHEST PA OR AP 1 VW Date/Time of Exam: 05/26/2025 5:29 AM Reason For Exam: Pneumothorax. Diagnosis: See Reason for Exam. Comparison: 05/25/2025. Findings: Apical lordotic projection obtained. The left chest tube has been removed. Stable cardiomediastinal silhouette with persistent small partially loculated left pleural effusion with left basilar and left midlung atelectasis versus airspace disease. The right lung is grossly clear. No right pleural effusion or definite pneumothorax is identified. Persistent subcutaneous emphysema about the lateral left chest wall and of the supraclavicular soft tissues present. Impression: 1. Interval removal of left sided chest tube with persistent loculated left pleural effusion with left basilar atelectasis versus airspace disease. Negative for definite pneumothorax. Puma Atkins MD DIAGNOSTIC IMAGING ORDERABLES F inal Result * (ABNORMAL) BASIC METABOLIC PANEL (05/26/2025 4:00 AM CDT) SODIUM 136 136 - 145 mmol/L 05/26/2025 4:53 AM [facility] POTASSIUM 5.1 3.5 - 5.1 mmol/L 05/26/2025 4:53 AM [facility] CHLORIDE 105 98 - 107 mmol/L 05/26/2025 4:53 AM [facility] CO2 20(L) 22 - 29 mmol/L 05/26/2025 4:53 AM [facility] CALCIUM 8.9 8.6 - 10.0 mg/dL 05/26/2025 4:53 AM [facility] BUN 36(H) 6 - 20 mg/dL 05/26/2025 4:53 AM [facility] CREATININE 1.88(H) 0.67 - 1.17 mg/dL 05/26/2025 4:53 AM [facility] GLUCOSE 103(H) 74 - 99 mg/dL 05/26/2025 4:53 AM CDT [facility] GFR 41(L) >=60 mL/min/1. 73 sq meter 05/26/2025 4:53 AM CDT [facility] Comment:eGFR calculated with 2020 CKD-EPI equation. Vegetarian diet, extremely high or low muscle mass, and may affect results. Cystatin C with Glomerular Filtration Rate is a suitable alternative for these patients. ANION GAP 11 9 - 20 mmol/L 05/26/2025 4:53 AM CDT [facility] Blood Venipuncture / Unknown 05/26/2025 4:00 AM CDT 05/26/2025 4:22 AM CDT Marie Eduardo MD CHEMISTRY ORDERABLES Final Res ult Performing Organization Address City/[facility] Co de Phone Number [facility] CLIA # [id number] Critical access hospital[address] [address] * POTASSIUM LEVEL (05/25/2025 1:34 PM CDT) POTASSIUM 4.8 3.5 - 5.1 mmol/L 05/25/2025 2:13 PM CDT [facility] Blood Venipuncture / Unknown 05/25/2025 1:34 PM CDT 05/25/2025 1:40 PM CDT Marie Eduardo MD CHEMISTRY ORDERABLES Final Res ult Performing Organization Address City/[facility]/ZIP Co de Phone Number [facility] CLIA # [id number] [address] [address] [place] [address] * XR CHEST PA OR AP 1 VW (05/25/2025 11:49 AM CDT) Anatomical Region Laterality Modality Chest Computed Radiogr aphy 05/25/2025 11:4 9 AM CDT Impressions 05/25/2025 12:21 PM CDT IMPRESSION: No evidence of any developing pneumothorax. Narrative 05/25/2025 12:21 PM CDT Exam: XR CHEST PA OR AP 1 VW Date/Time of Exam: 05/25/2025 11:49 AM Reason For Exam: Pneumothorax Diagnosis: See Reason for Exam Comparison is to a study from earlier the same day. The left-sided chest tube remains in place. No pneumothorax is seen. Left lower lung consolidation and small left effusion are unchanged. The right lung is clear. Procedure Note Darwin Mathur MD - 05/25/2025 Exam: XR CHEST PA OR AP 1 VW Date/Time of Exam: 05/25/2025 11:49 AM Reason For Exam: Pneumothorax Diagnosis: See Reason for Exam Comparison is to a study from earlier the same day. The left-sided chest tube remains in place. No pneumothorax is seen. Left lower lung consolidation and small left effusion are unchanged. The right lung is clear. IMPRESSION: No evidence of any developing pneumothorax. Wyatt NATHAN DIAGNOSTIC IMAGING ORDERABLES Final Result * (ABNORMAL) BASIC METABOLIC PANEL (05/25/2025 5:38 AM CDT) SODIUM 137 136 - 145 mmol/L 05/25/2025 6:32 AM CDT [facility] POTASSIUM 5.4(H) 3.5 - 5.1 mmol/L 05/25/2025 6:32 AM T [facility] CHLORIDE 102 98 - 107 mmol/L 05/25/2025 6:32 AM CDT [facility] CO2 22 22 - 29 mmol/L 05/25/2025 6:32 AM T [facility] CALCIUM 9.3 8.6 - 10.0 mg/dL 05/25/2025 6:32 AM T [facility] BUN 39(H) 6 - 20 mg/dL 05/25/2025 6:32 AM T [facility] CREATININE 1.82(H) 0.67 - 1.17 mg/dL 05/25/2025 6:32 AM CDT [facility] GLUCOSE 102(H) 74 - 99 mg/dL 05/25/2025 6:32 AM CDT [facility] GFR 43(L) >=60 mL/min/1. 73 sq meter 05/25/2025 6:32 AM T [facility] Comment:eGFR calculated with 2020 CKD-EPI equation. Vegetarian diet, extremely high or low muscle mass, and may affect results. Cystatin C with Glomerular Filtration Rate is a suitable alternative for these patients. ANION GAP 13 9 - 20 mmol/L 05/25/2025 6:32 AM T [facility] Blood Venipuncture / Unknown 05/25/2025 5:38 AM CDT 05/25/2025 6:01 AM CDT us Marie Eduardo MD CHEMISTRY ORDERABLES Final Res ult Performing Organization Address City/State/[facility] Co de Phone Number [facility] CLIA # [id number] [address] [place] [id number] * (ABNORMAL) CBC WITHOUT DIFFERENTIAL (05/25/2025 5:38 AM CDT) WBC 9.6 4.8 - 10.8 K/uL 05/25/2025 6:10 AM CDT [facility] RBC 3.92(L) 4.60 - 6.20 M/uL 05/25/2025 6:10 AM CDT [facility] HEMOGLOBIN 11.7(L) 14.0 - 18.0 g/dL 05/25/2025 6:10 AM CDT [facility] HEMATOCRIT 35.1(L) 41.0 - 53.0 % 05/25/2025 6:10 AM CDT [facility] MCV 89.5 84.0 - 103.0 fL 05/25/2025 6:10 AM CDT [facility] MCH 29.8 27.0 - 34.0 pg 05/25/2025 6:10 AM CDT [facility] MCHC 33.3 30.0 - 35.0 g/dL 05/25/2025 6:10 AM CDT [facility] PLATELETS 541(H) 140 - 440 K/uL 05/25/2025 6:10 AM CDT [facility] MPV 9.1 8.9 - 12.8 fL 05/25/2025 6:10 AM CDT [facility] RDW 14.5 11.0 - 14.5 % 05/25/2025 6:10 AM CDT [facility] RDW-STDEV 47.8 37.0 - 54.0 fL 05/25/2025 6:10 AM CDT [facility] Blood Venipuncture / Unknown 05/25/2025 5:38 AM CDT 05/25/2025 6:01 AM CDT Marie Eduardo MD HEMATOLOGY ORDERABLES Final Re sult [facility] CLIA # [id number] [address] [place] [address] [place] [address] * XR CHEST PA OR AP 1 VW (05/25/2025 4:12 AM CDT) Anatomical Region Laterality Modality Chest Computed Radiogr aphy 05/25/2025 4:12 AM CDT Impressions 05/25/2025 6:47 AM CDT IMPRESSION: Please see below. EXAM: XR CHEST PA OR AP 1 VW DATE/TIME OF EXAM: 05/25/2025 4:12 AM REASON FOR STUDY: Pneumothorax DIAGNOSIS: See Reason for Exam COMPARISON: May 24, 2025. TECHNIQUE: A frontal radiograph of the chest was obtained. FINDINGS: Left chest tube remains in place. Pigtail pleural drainage catheter on the left has been removed. No visible pneumothorax. Extensive subcutaneous emphysema throughout the chest wall left greater than right is similar to the prior study. Left basilar consolidation with left pleural collection appears similar to the prior study. Cardiac and mediastinal silhouette is within normal limits. No new bony abnormality. IMPRESSION: 1. Interval removal of the pigtail left-sided pleural drainage catheter. Other findings are similar to the previous study. Narrative Procedure Note Nilton Dill MD - 05/25/2025 IMPRESSION: Please see below. EXAM: XR CHEST PA OR AP 1 VW DATE/TIME OF EXAM: 05/25/2025 4:12 AM REASON FOR STUDY: Pneumothorax DIAGNOSIS: See Reason for Exam COMPARISON: May 24, 2025. TECHNIQUE: A frontal radiograph of the chest was obtained. FINDINGS: Left chest tube remains in place. Pigtail pleural drainage catheter on the left has been removed. No visible pneumothorax. Extensive subcutaneous emphysema throughout the chest wall left greater than right is similar to the prior study. Left basilar consolidation with left pleural collection appears similar to the prior study. Cardiac and mediastinal silhouette is within normal limits. No new bony abnormality. IMPRESSION: 1. Interval removal of the pigtail left-sided pleural drainage catheter. Other findings are similar to the previous study. Puma Atkins MD DIAGNOSTIC IMAGING ORDERABLES F inal Result * (ABNORMAL) POTASSIUM LEVEL (05/24/2025 2:13 PM CDT) Pathologist [facility] POTASSIUM 5.3(H) 3.5 - 5.1 mmol/L 05/24/2025 2:54 PM CDT [facility] Blood Venipuncture / Unknown 05/24/2025 2:13 PM CDT 05/24/2025 2:30 PM CDT Marie Eduardo MD CHEMISTRY ORDERABLES Final Res ult [facility] CLIA # [id number] Critical access hospital[address] [address] [place] [address] * XR CHEST PA OR AP 1 VW (05/24/2025 11:41 AM CDT) Anatomical Region Laterality Modality Chest Computed Radiogr aphy 05/24/2025 11:4 1 AM CDT Impressions 05/24/2025 12:22 PM CDT IMPRESSION: No evidence of any pneumothorax. Narrative 05/24/2025 12:22 PM CDT Exam: XR CHEST PA OR AP 1 VW Date/Time of Exam: 05/24/2025 11:41 AM Reason For Exam: Other - Please see comments, Comment: Clamp trial for left pigtail Diagnosis: See Reason for Exam Comparison is to a study from earlier the same day. The left-sided chest tube and pleural drain tube remain in place. No pneumothorax is seen. Left lower lung atelectasis and small left pleural effusion are unchanged. The right lung is clear. The heart size is normal. Procedure Note Darwin Mathur MD - 05/24/2025 Exam: XR CHEST PA OR AP 1 VW Date/Time of Exam: 05/24/2025 11:41 AM Reason For Exam: Other - Please see comments, Comment: Clamp trial for left pigtail Diagnosis: See Reason for Exam Comparison is to a study from earlier the same day. The left-sided chest tube and pleural drain tube remain in place. No pneumothorax is seen. Left lower lung atelectasis and small left pleural effusion are unchanged. The right lung is clear. The heart size is normal. IMPRESSION: No evidence of any pneumothorax. us Zabrina Bynum PA-C DIAGNOSTIC IMAGING OR DERABLES Final Result * (ABNORMAL) BASIC METABOLIC PANEL (05/24/2025 8:24 AM CDT) SODIUM 134(L) 136 - 145 mmol/L 05/24/2025 9:06 AM CDT [facility] POTASSIUM 5.6(H) 3.5 - 5.1 mmol/L 05/24/2025 9:06 AM CDT [facility] CHLORIDE 100 98 - 107 mmol/L 05/24/2025 9:06 AM CDT [facility] CO2 23 22 - 29 mmol/L 05/24/2025 9:06 AM T [facility] CALCIUM 9.7 8.6 - 10.0 mg/dL 05/24/2025 9:06 AM T [facility] BUN 43(H) 6 - 20 mg/dL 05/24/2025 9:06 AM T [facility] CREATININE 1.93(H) 0.67 - 1.17 mg/dL 05/24/2025 9:06 AM T [facility] GLUCOSE 123(H) 74 - 99 mg/dL 05/24/2025 9:06 AM T [facility] GFR 40(L) >=60 mL/min/1. 73 sq meter 05/24/2025 9:06 AM T [facility] Comment:eGFR calculated with 2020 CKD-EPI equation. Vegetarian diet, extremely high or low muscle mass, and may affect results. Cystatin C with Glomerular Filtration Rate is a suitable alternative for these patients. ANION GAP 11 9 - 20 mmol/L 05/24/2025 9:06 AM T [facility] Blood Venipuncture / Unknown 05/24/2025 8:24 AM CDT 05/24/2025 8:34 AM CDT us Marie Eduardo MD CHEMISTRY ORDERABLES Final Res ult [facility] CLIA # [id number] [address] [place] [id number] * XR CHEST PA OR AP 1 VW (05/24/2025 5:13 AM CDT) Anatomical Region Laterality Modality Chest Computed Radiogr aphy 05/24/2025 5:13 AM CDT Impressions 05/24/2025 6:28 AM CDT IMPRESSION: No significant interval change. Narrative 05/24/2025 6:28 AM CDT Exam: XR CHEST PA OR AP 1 VW Date/Time of Exam: 05/24/2025 5:13 AM Reason For Exam: Pneumothorax. Diagnosis: See Reason for Exam. Comparison: 05/23/2025. Findings: Left-sided thoracostomy tubes remain in place without apparent interval change in position. There is redemonstration of a left pleural effusion with adjacent nonspecific left perihilar and basilar consolidation appearing similar to the previous exam. There is no new consolidation or appreciable pneumothorax. There is redemonstration of subcutaneous emphysema. Procedure Note Rocky Gross DO - 05/24/2025 Exam: XR CHEST PA OR AP 1 VW Date/Time of Exam: 05/24/2025 5:13 AM Reason For Exam: Pneumothorax. Diagnosis: See Reason for Exam. Comparison: 05/23/2025. Findings: Left-sided thoracostomy tubes remain in place without apparent interval change in position. There is redemonstration of a left pleural effusion with adjacent nonspecific left perihilar and basilar consolidation appearing similar to the previous exam. There is no new consolidation or appreciable pneumothorax. There is redemonstration of subcutaneous emphysema. IMPRESSION: No significant interval change. Puma Atkins MD DIAGNOSTIC IMAGING ORDERABLES F inal Result * XR CHEST PA OR AP 1 VW (05/23/2025 12:12 PM CDT) Anatomical Region Laterality Modality Chest Computed Radiogr aphy 05/23/2025 12:1 2 PM CDT Impressions 05/23/2025 6:44 PM CDT IMPRESSION: See below. Exam: XR CHEST PA OR AP 1 VW Date/Time of Exam: 05/23/2025 12:12 PM Reason For Exam: Line Placement. Diagnosis: See Reason for Exam. Findings: Comparison: 05/15/25 External medical leads are present. There is a small bore left thoracostomy pigtail drainage catheter and a large-bore thoracostomy tube in place. There is soft tissue gas of the lateral neck and left chest wall. No visualized pneumothorax. Small left pleural fluid collection with left basilar atelectasis. No right-sided pneumothorax. IMPRESSION: 1. Left thoracostomy tubes in place without visualized pneumothorax. Narrative Procedure Note Carlos Hickey MD - 05/23/2025 IMPRESSION: See below. Exam: XR CHEST PA OR AP 1 VW Date/Time of Exam: 05/23/2025 12:12 PM Reason For Exam: Line Placement. Diagnosis: See Reason for Exam. Findings: Comparison: 05/15/25 External medical leads are present. There is a small bore left thoracostomy pigtail drainage catheter and a large-bore thoracostomy tube in place. There is soft tissue gas of the lateral neck and left chest wall. No visualized pneumothorax. Small left pleural fluid collection with left basilar atelectasis. No right-sided pneumothorax. IMPRESSION: 1. Left thoracostomy tubes in place without visualized pneumothorax. Zabrina Bynum PA-C DIAGNOSTIC IMAGING OR DERABLES Final Result * (ABNORMAL) BASIC METABOLIC PANEL (05/23/2025 7:05 AM CDT) SODIUM 132(L) 136 - 145 mmol/L 05/23/2025 8:15 AM T [facility] POTASSIUM 5.2(H) 3.5 - 5.1 mmol/L 05/23/2025 8:15 AM [facility] CHLORIDE 99 98 - 107 mmol/L 05/23/2025 8:15 AM [facility] CO2 21(L) 22 - 29 mmol/L 05/23/2025 8:15 AM [facility] CALCIUM 9.2 8.6 - 10.0 mg/dL 05/23/2025 8:15 AM [facility] BUN 36(H) 6 - 20 mg/dL 05/23/2025 8:15 AM [facility] CREATININE 1.99(H) 0.67 - 1.17 mg/dL 05/23/2025 8:15 AM [facility] GLUCOSE 110(H) 74 - 99 mg/dL 05/23/2025 8:15 AM [facility] GFR 38(L) >=60 mL/min/1. 73 sq meter 05/23/2025 8:15 AM [facility] Comment:eGFR calculated with 2020 CKD-EPI equation. Vegetarian diet, extremely high or low muscle mass, and may affect results. Cystatin C with Glomerular Filtration Rate is a suitable alternative for these patients. ANION GAP 12 9 - 20 mmol/L 05/23/2025 8:15 AM [facility] Blood Venipuncture / Unknown 05/23/2025 7:05 AM CDT 05/23/2025 7:31 AM CDT us Roel Andujar MD CHEMISTRY ORDERABLES Final Resu lt [facility] CLIA # [id number] [address] [facility] [place] [address] * XR CHEST PA OR AP 1 VW (05/23/2025 5:38 AM CDT) Anatomical Region Laterality Modality Chest Computed Radiogr aphy 05/23/2025 5:38 AM CDT Impressions 05/23/2025 11:10 AM CDT IMPRESSION: Left-sided thoracostomy tubes in situ without pneumothorax. Narrative 05/23/2025 11:10 AM CDT Exam: XR CHEST PA OR AP 1 VW Date/Time of Exam: 05/23/2025 5:38 AM Reason For Exam: Pneumothorax. Diagnosis: See Reason for Exam. Findings: The cardiomediastinal silhouette is normal in size and contour. Left-sided thoracostomy tubes remain present. Left basilar pleural-parenchymal opacities are unchanged. The right lung is clear. No pneumothorax. Subcutaneous emphysema is again noted in the left chest wall and lower neck. Procedure Note Nilton Mendoza MD - 05/23/2025 Exam: XR CHEST PA OR AP 1 VW Date/Time of Exam: 05/23/2025 5:38 AM Reason For Exam: Pneumothorax. Diagnosis: See Reason for Exam. Findings: The cardiomediastinal silhouette is normal in size and contour. Left-sided thoracostomy tubes remain present. Left basilar pleural-parenchymal opacities are unchanged. The right lung is clear. No pneumothorax. Subcutaneous emphysema is again noted in the left chest wall and lower neck. IMPRESSION: Left-sided thoracostomy tubes in situ without pneumothorax. us Puma Atkins MD DIAGNOSTIC IMAGING ORDERABLES F inal Result * (ABNORMAL) CBC WITH DIFFERENTIAL (05/22/2025 9:40 AM CDT) [facility] WBC 12.9(H) 4.8 - 10.8 K/uL 05/22/2025 9:53 AM CDT [facility] RBC 3.93(L) 4.60 - 6.20 M/uL 05/22/2025 9:53 AM CDT [facility] HEMOGLOBIN 11.7(L) 14.0 - 18.0 g/dL 05/22/2025 9:53 AM CDT [facility] HEMATOCRIT 35.8(L) 41.0 - 53.0 % 05/22/2025 9:53 AM CDT [facility] MCV 91.1 84.0 - 103.0 fL 05/22/2025 9:53 AM CDT [facility] MCH 29.8 27.0 - 34.0 pg 05/22/2025 9:53 [facility] 32.7 30.0 - 35.0 g/dL 05/22/2025 9:53 AM CDT [facility] PLATELETS 464(H) 140 - 440 K/uL 05/22/2025 9:53 AM T [facility] MPV 9.1 8.9 - 12.8 fL 05/22/2025 9:53 AM CDT [facility] RDW 14.6(H) 11.0 - 14.5 % 05/22/2025 9:53 AM [facility] RDW-STDEV 48.8 37.0 - 54.0 fL 05/22/2025 9:53 AM CDT [facility] NEUTROPHILS 59 42 - 75 % 05/22/2025 9:53 AM CDT [facility] LYMPHOCYTES 16(L) 24 - 44 % 05/22/2025 9:53 AM CDT [facility] MONOCYTES 15(H) 2 - 10 % 05/22/2025 9:53 AM CDT [facility] EOSINOPHILS 9(H) 0 - 7 % 05/22/2025 9:53 AM CDT [facility] BASOPHILS 1 0 - 1 % 05/22/2025 9:53 AM CDT [facility] IMMATURE GRANULOCYTES 0 0 - 2 % 05/22/2025 9:53 AM CDT [facility] NEUTROPHIL ABSOLUTE 7.69 2.00 - 8.00 K/uL 05/22/2025 9:53 AM CDT [facility] LYMPHOCYTE ABSOLUTE 2.05 1.20 - 4.00 K/uL 05/22/2025 9:53 AM CDT [facility] MONOCYTE ABSOLUTE 1.88(H) 0.10 - 0.60 K/uL 05/22/2025 9:53 AM CDT [facility] EOSINOPHIL ABSOLUTE 1.17(H) 0.00 - 0.70 K/uL 05/22/2025 9:53 AM CDT [facility] BASOPHILS ABSOLUTE 0.08 0.00 - 0.20 K/uL 05/22/2025 9:53 AM CDT [facility] IMMATURE GRANULOCYTES ABSOLUTE 0.05 0.00 - 0.10 K/uL 05/22/2025 9:53 AM CDT [facility] SMEAR REVIEWED: NA - Not Applicable 05/22/2025 9:53 AM T [facility] Blood Venipuncture / Unknown 05/22/2025 9:40 AM CDT 05/22/2025 9:50 AM CDT us Roel Andujar MD HEMATOLOGY ORDERABLES Final Res ult [facility] CLIA # [id number] [address] [place] [address] [place], [place] [id number] * XR CHEST PA OR AP 1 VW (05/22/2025 7:01 AM CDT) Anatomical Region Laterality Modality Chest Computed Radiogr aphy 05/22/2025 7:01 AM CDT Impressions 05/22/2025 11:19 AM CDT IMPRESSION: Left-sided thoracostomy tubes in situ without pneumothorax. Narrative 05/22/2025 11:19 AM CDT Exam: XR CHEST PA OR AP 1 VW Date/Time of Exam: 05/22/2025 7:01 AM Reason For Exam: Pneumothorax. Diagnosis: See Reason for Exam. Findings: The cardiomediastinal silhouette is normal in size and contour. Left-sided thoracostomy tubes remain in situ. There are persistent left basilar pleural-parenchymal opacities without significant interval change. The right lung is clear. No pneumothorax. Extensive subcutaneous emphysema noted in the left chest wall and neck. Procedure Note Nilton Mendoza MD - 05/22/2025 Exam: XR CHEST PA OR AP 1 VW Date/Time of Exam: 05/22/2025 7:01 AM Reason For Exam: Pneumothorax. Diagnosis: See Reason for Exam. Findings: The cardiomediastinal silhouette is normal in size and contour. Left-sided thoracostomy tubes remain in situ. There are persistent left basilar pleural-parenchymal opacities without significant interval change. The right lung is clear. No pneumothorax. Extensive subcutaneous emphysema noted in the left chest wall and neck. IMPRESSION: Left-sided thoracostomy tubes in situ without pneumothorax. Puma Atkins MD DIAGNOSTIC IMAGING ORDERABLES F inal Result * XR CHEST PA OR AP 1 VW (05/21/2025 4:23 AM CDT) Anatomical Region Laterality Modality Chest Computed Radiogr aphy 05/21/2025 4:23 AM CDT Impressions 05/21/2025 7:53 AM CDT IMPRESSION: See below. Exam: XR CHEST PA OR AP 1 VW Date/Time of Exam: 05/21/2025 4:23 AM Reason For Exam: Pneumothorax. Diagnosis: See Reason for Exam. Findings: Comparison: Plain film chest 05/20/25 Medical leads over the chest. There are 2 left thoracotomy tubes in place. There is soft tissue gas and bilateral neck and chest wall, greater on the left. No visualized residual left pneumothorax. No right-sided pneumothorax. There is persistent consolidation left lung base with small left pleural fluid collection. IMPRESSION: 1. Soft tissue gas about chest wall with [address]. No visualized residual left pneumothorax. 2. Unchanged small left pleural fluid collection with left basilar airspace opacity Narrative Procedure Note Carlos Hickey MD - 05/21/2025 IMPRESSION: See below. Exam: XR CHEST PA OR AP 1 VW Date/Time of Exam: 05/21/2025 4:23 AM Reason For Exam: Pneumothorax. Diagnosis: See Reason for Exam. Findings: Comparison: Plain film chest 05/20/25 Medical leads over the chest. There are 2 left thoracotomy tubes in place. There is soft tissue gas and bilateral neck and chest wall, greater on the left. No visualized residual left pneumothorax. No right-sided pneumothorax. There is persistent consolidation left lung base with small left pleural fluid collection. IMPRESSION: 1. Soft tissue gas about chest wall with [address] No visualized residual left pneumothorax. 2. Unchanged small left pleural fluid collection with left basilar airspace opacity us Puma Atkins MD DIAGNOSTIC IMAGING ORDERABLES F inal Result * XR CHEST PA OR AP 1 VW (05/20/2025 5:18 AM CDT) Anatomical Region Laterality Modality Chest Computed Radiogr aphy 05/20/2025 5:18 AM CDT Narrative 05/20/2025 6:31 AM CDT XR CHEST PA OR AP 1 VW Reason For Exam: Pneumothorax. Diagnosis: See Reason for Exam. COMPARISON: 05/19/2025 FINDINGS: Support devices remain in place. Cardiomediastinal silhouette is within normal limits. Trace left apical pneumothorax is unchanged. Moderate left pleural parenchymal opacities are unchanged. No new abnormality. Procedure Note Tomas Wheat MD - 05/20/2025 XR CHEST PA OR AP 1 VW Reason For Exam: Pneumothorax. Diagnosis: See Reason for Exam. COMPARISON: 05/19/2025 FINDINGS: Support devices remain in place. Cardiomediastinal silhouette is within normal limits. Trace left apical pneumothorax is unchanged. Moderate left pleural parenchymal opacities are unchanged. No new abnormality. us Puma Atkins MD DIAGNOSTIC IMAGING ORDERABLES F inal Result * (ABNORMAL) RENAL FUNCTION PANEL (05/20/2025 12:49 AM CDT) SODIUM 135(L) 136 - 145 mmol/L 05/20/2025 2:14 AM [facility] POTASSIUM 4.6 3.5 - 5.1 mmol/L 05/20/2025 2:14 AM [facility] CHLORIDE 103 98 - 107 mmol/L 05/20/2025 2:14 AM [facility] CO2 21(L) 22 - 29 mmol/L 05/20/2025 2:14 AM [facility] CALCIUM 8.8 8.6 - 10.0 mg/dL 05/20/2025 2:14 AM [facility] BUN 31(H) 6 - 20 mg/dL 05/20/2025 2:14 AM [facility] CREATININE 1.75(H) 0.67 - 1.17 mg/dL 05/20/2025 2:14 AM [facility] GLUCOSE 102(H) 74 - 99 mg/dL 05/20/2025 2:14 AM [facility] ALBUMIN 3.3(L) 3.5 - 5.2 g/dL 05/20/2025 2:14 AM [facility] PHOSPHORUS 4.7(H) 2.5 - 4.5 mg/dL 05/20/2025 2:14 AM [facility] GFR 45(L) >=60 mL/min/1. 73 sq meter 05/20/2025 2:14 AM [facility] Comment:eGFR calculated with 2020 CKD-EPI equation. Vegetarian diet, extremely high or low muscle mass, and may affect results. Cystatin C with Glomerular Filtration Rate is a suitable alternative for these patients. ANION GAP 11 9 - 20 mmol/L 05/20/2025 2:14 AM [facility] Blood Venipuncture / Unknown 05/20/2025 12:49 AM CDT 05/20/2025 1:39 AM T us Duc Camp MD CHEMISTRY ORDERABLES Final R esult [facility] CLIA # [id number] [address] [address] [place] [address] * (ABNORMAL) CBC WITH DIFFERENTIAL (05/20/2025 12:49 AM CDT) [facility] WBC 12.5(H) 4.8 - 10.8 K/uL 05/20/2025 1:48 AM CDT [facility] RBC 4.03(L) 4.60 - 6.20 M/uL 05/20/2025 1:48 AM CDT [facility] HEMOGLOBIN 11.8(L) 14.0 - 18.0 g/dL 05/20/2025 1:48 AM CDT [facility] HEMATOCRIT 36.5(L) 41.0 - 53.0 % 05/20/2025 1:48 AM CDT [facility] MCV 90.6 84.0 - 103.0 fL 05/20/2025 1:48 AM CDT [facility] MCH 29.3 27.0 - 34.0 pg 05/20/2025 1:48 AM CDT [facility] MCHC 32.3 30.0 - 35.0 g/dL 05/20/2025 1:48 AM CDT [facility] PLATELETS 502(H) 140 - 440 K/uL 05/20/2025 1:48 AM CDT [facility] MPV 9.4 8.9 - 12.8 fL 05/20/2025 1:48 AM CDT [facility] RDW 15.0(H) 11.0 - 14.5 % 05/20/2025 1:48 AM CDT [facility] RDW-STDEV 50.3 37.0 - 54.0 fL 05/20/2025 1:48 AM CDT [facility] NEUTROPHILS 50 42 - 75 % 05/20/2025 1:48 AM CDT [facility] LYMPHOCYTES 22(L) 24 - 44 % 05/20/2025 1:48 AM CDT [facility] MONOCYTES 15(H) 2 - 10 % 05/20/2025 1:48 AM CDT [facility] EOSINOPHILS 11(H) 0 - 7 % 05/20/2025 1:48 AM CDT [facility] BASOPHILS 1 0 - 1 % 05/20/2025 1:48 AM CDT [facility] IMMATURE GRANULOCYTES 1 0 - 2 % 05/20/2025 1:48 AM CDT [facility] NEUTROPHIL ABSOLUTE 6.30 2.00 - 8.00 K/uL 05/20/2025 1:48 AM CDT [facility] LYMPHOCYTE ABSOLUTE 2.73 1.20 - 4.00 K/uL 05/20/2025 1:48 AM CDT [facility] MONOCYTE ABSOLUTE 1.92(H) 0.10 - 0.60 K/uL 05/20/2025 1:48 AM CDT [facility] EOSINOPHIL ABSOLUTE 1.39(H) 0.00 - 0.70 K/uL 05/20/2025 1:48 AM CDT [facility] BASOPHILS ABSOLUTE 0.09 0.00 - 0.20 K/uL 05/20/2025 1:48 AM CDT [facility] IMMATURE GRANULOCYTES ABSOLUTE 0.07 0.00 - 0.10 K/uL 05/20/2025 1:48 AM T [facility] SMEAR REVIEWED: NA - Not Applicable 05/20/2025 1:48 AM T [facility] Blood Venipuncture / Unknown 05/20/2025 12:49 AM CDT 05/20/2025 1:39 AM CDT us Duc Camp MD HEMATOLOGY ORDERABLES Final Result [facility] CLIA # [id number] [address] [address] [place] [address] * XR CHEST PA OR AP 1 VW (05/19/2025 4:58 AM CDT) Anatomical Region Laterality Modality Chest Computed Radiogr aphy 05/19/2025 4:58 AM CDT Impressions 05/19/2025 9:05 AM CDT IMPRESSION: See below. Exam: XR CHEST PA OR AP 1 VW Date/Time of Exam: 05/19/2025 4:58 AM Reason For Exam: Pneumothorax. Diagnosis: See Reason for Exam. Findings: Comparison: Plain film chest 05/18/25 There are 2 left [address]acostomy tubes in place. Unchanged moderate left basilar pneumothorax. Unchanged gas of the bilateral neck and chest wall, greater on the left. No visualized right-sided pneumothorax. Mild increased airspace opacity of the left mid and lower lung zones which may represent atelectasis. IMPRESSION: 1. Moderate left pneumothorax and left thoracostomy tubes in place. Unchanged gas of the bilateral chest wall. Narrative Procedure Note Carlos Hickey MD - 05/19/2025 IMPRESSION: See below. Exam: XR CHEST PA OR AP 1 VW Date/Time of Exam: 05/19/2025 4:58 AM Reason For Exam: Pneumothorax. Diagnosis: See Reason for Exam. Findings: Comparison: Plain film chest 05/18/25 There are 2 left thoracostomy tubes in place. Unchanged moderate left basilar pneumothorax. Unchanged gas of the bilateral neck and chest wall, greater on the left. No visualized right-sided pneumothorax. Mild increased airspace opacity of the left mid and lower lung zones which may represent atelectasis. IMPRESSION: 1. Moderate left pneumothorax and left thoracostomy tubes in place. Unchanged gas of the bilateral chest wall. Puma Atkins MD DIAGNOSTIC IMAGING ORDERABLES F inal Result * (ABNORMAL) RENAL FUNCTION PANEL (05/19/2025 1:47 AM CDT) SODIUM 136 136 - 145 mmol/L 05/19/2025 3:09 AM CDT [facility] [place] POTASSIUM 4.5 3.5 - 5.1 mmol/L 05/19/2025 3:09 AM CDT [facility] CHLORIDE 103 98 - 107 mmol/L 05/19/2025 3:09 AM CDT [facility] CO2 22 22 - 29 mmol/L 05/19/2025 3:09 AM CDT [facility] CALCIUM 8.9 8.6 - 10.0 mg/dL 05/19/2025 3:09 AM T [facility] BUN 32(H) 6 - 20 mg/dL 05/19/2025 3:09 AM [facility] CREATININE 1.70(H) 0.67 - 1.17 mg/dL 05/19/2025 3:09 AM T [facility] GLUCOSE 106(H) 74 - 99 mg/dL 05/19/2025 3:09 AM [facility] ALBUMIN 3.3(L) 3.5 - 5.2 g/dL 05/19/2025 3:09 AM [facility] PHOSPHORUS 3.9 2.5 - 4.5 mg/dL 05/19/2025 3:09 AM [facility] GFR 46(L) >=60 mL/min/1. 73 sq meter 05/19/2025 3:09 AM [facility] Comment:eGFR calculated with 2020 CKD-EPI equation. Vegetarian diet, extremely high or low muscle mass, and may affect results. Cystatin C with Glomerular Filtration Rate is a suitable alternative for these patients. ANION GAP 11 9 - 20 mmol/L 05/19/2025 3:09 AM T [facility] Blood Venipuncture / Unknown 05/19/2025 1:47 AM CDT 05/19/2025 2:35 AM CDT us Duc Camp MD CHEMISTRY ORDERABLES Final R esult [facility] CLIA # [id number] [address] [place] [id number] * (ABNORMAL) CBC WITH DIFFERENTIAL (05/19/2025 1:47 AM CDT) WBC 13.0(H) 4.8 - 10.8 K/uL 05/19/2025 3:11 AM [facility] RBC 4.05(L) 4.60 - 6.20 M/uL 05/19/2025 3:11 AM [facility] HEMOGLOBIN 12.0(L) 14.0 - 18.0 g/dL 05/19/2025 3:11 AM [facility] HEMATOCRIT 36.3(L) 41.0 - 53.0 % 05/19/2025 3:11 AM [facility] MCV 89.6 84.0 - 103.0 fL 05/19/2025 3:11 AM [facility] MCH 29.6 27.0 - 34.0 pg 05/19/2025 3:11 AM [facility] MCHC 33.1 30.0 - 35.0 g/dL 05/19/2025 3:11 AM [facility] PLATELETS 483(H) 140 - 440 K/uL 05/19/2025 3:11 AM [facility] MPV 9.3 8.9 - 12.8 fL 05/19/2025 3:11 AM [facility] RDW 14.9(H) 11.0 - 14.5 % 05/19/2025 3:11 AM [facility] RDW-STDEV 49.1 37.0 - 54.0 fL 05/19/2025 3:11 AM [facility] NEUTROPHILS 45 42 - 75 % 05/19/2025 3:11 AM [facility] LYMPHOCYTES 22(L) 24 - 44 % 05/19/2025 3:11 AM [facility] MONOCYTES 12(H) 2 - 10 % 05/19/2025 3:11 AM [facility] [employer] [facility] EOSINOPHILS 19(H) 0 - 7 % 05/19/2025 3:11 AM [facility] BASOPHILS 1 0 - 1 % 05/19/2025 3:11 AM CDT [facility] IMMATURE GRANULOCYTES 1 0 - 2 % 05/19/2025 3:11 AM CDT [facility] NEUTROPHIL ABSOLUTE 5.91 2.00 - 8.00 K/uL 05/19/2025 3:11 AM CDT [facility] LYMPHOCYTE ABSOLUTE 2.81 1.20 - 4.00 K/uL 05/19/2025 3:11 AM CDT [facility] MONOCYTE ABSOLUTE 1.61(H) 0.10 - 0.60 K/uL 05/19/2025 3:11 AM CDT [facility] EOSINOPHIL ABSOLUTE 2.52(H) 0.00 - 0.70 K/uL 05/19/2025 3:11 AM CDT [facility] BASOPHILS ABSOLUTE 0.09 0.00 - 0.20 K/uL 05/19/2025 3:11 AM CDT [facility] IMMATURE GRANULOCYTES ABSOLUTE 0.06 0.00 - 0.10 K/uL 05/19/2025 3:11 AM CDT [facility] SMEAR REVIEWED: WBC - Automated differential confirmed. 05/19/2025 3:11 AM CDT [facility] Blood Venipuncture / Unknown 05/19/2025 1:47 AM CDT 05/19/2025 2:35 AM CDT us Duc Camp MD HEMATOLOGY ORDERABLES Final Result [facility] CLIA # [id number] [address] [place] [address] [place] [address] * MRSA PCR RAPID SCREEN (05/18/2025 5:50 PM CDT) [facility] MRSA PCR RESULT MRSA not detected MRSA not detected 05/18/2025 7:22 PM CDT [facility] Surveillance ANTERIOR NARES SWAB / Unknown Collection / Unknown 05/18/2025 5:50 PM CDT 05/18/2025 5:56 PM CDT Narrative [facility] - 05/18/2025 7:22 PM CDT This assay is used to detect Methicillin-Resistant S. aureus (MRSA) colonization of the nares. PLEASE NOTE: This test has not been approved to monitor effectiveness of MRSA decolonization. Residual DNA may temporarily be present after successful decolonization. This test was performed using an FDA approved screening methodology. Duc Camp MD MICROBIOLOGY - GENERAL ORDER KAVITHA Final Result [facility] CLIA # [id number] [address] [address] [place] [address] * XR CHEST PA OR AP 1 VW (05/18/2025 8:13 AM CDT) Anatomical Region Laterality Modality Chest Computed Radiogr aphy 05/18/2025 8:13 AM CDT Narrative 05/18/2025 8:28 AM CDT XR CHEST PA OR AP 1 VW Reason For Exam: Pneumothorax. Diagnosis: See Reason for Exam. COMPARISON: 05/18/2025 FINDINGS: Left chest tubes remain in place. Tiny left pneumothorax has significantly improved from the prior exam. Extensive subcutaneous emphysema over the chest is again noted. Mild left basilar atelectasis/consolidation and questionable pleural effusion.. Cardiac silhouette is stable. Right lung is grossly clear. No new abnormality. Procedure Note Tomas Wheat MD - 05/18/2025 XR CHEST PA OR AP 1 VW Reason For Exam: Pneumothorax. Diagnosis: See Reason for Exam. COMPARISON: 05/18/2025 FINDINGS: Left chest tubes remain in place. Tiny left pneumothorax has significantly improved from the prior exam. Extensive subcutaneous emphysema over the chest is again noted. Mild left basilar atelectasis/consolidation and questionable pleural effusion.. Cardiac silhouette is stable. Right lung is grossly clear. No new abnormality. Puma Atkins MD DIAGNOSTIC IMAGING ORDERABLES F inal Result * (ABNORMAL) RENAL FUNCTION PANEL (05/18/2025 4:54 AM CDT) SODIUM 137 136 - 145 mmol/L 05/18/2025 5:34 AM T [facility] POTASSIUM 5.1 3.5 - 5.1 mmol/L 05/18/2025 5:34 AM T [facility] CHLORIDE 103 98 - 107 mmol/L 05/18/2025 5:34 AM [facility] CO2 23 22 - 29 mmol/L 05/18/2025 5:34 AM T [facility] CALCIUM 9.2 8.6 - 10.0 mg/dL 05/18/2025 5:34 AM [facility] BUN 31(H) 6 - 20 mg/dL 05/18/2025 5:34 AM [facility] CREATININE 1.73(H) 0.67 - 1.17 mg/dL 05/18/2025 5:34 AM [facility] GLUCOSE 126(H) 74 - 99 mg/dL 05/18/2025 5:34 AM [facility] ALBUMIN 3.6 3.5 - 5.2 g/dL 05/18/2025 5:34 AM [facility] PHOSPHORUS 3.2 2.5 - 4.5 mg/dL 05/18/2025 5:34 AM [facility] GFR 45(L) >=60 mL/min/1. 73 sq meter 05/18/2025 5:34 AM [facility] Comment:eGFR calculated with 2020 CKD-EPI equation. Vegetarian diet, extremely high or low muscle mass, and may affect results. Cystatin C with Glomerular Filtration Rate is a suitable alternative for these patients. ANION GAP 11 9 - 20 mmol/L 05/18/2025 5:34 AM [facility] Blood Venipuncture / Unknown 05/18/2025 4:54 AM CDT 05/18/2025 5:00 AM CDT us Duc Camp MD CHEMISTRY ORDERABLES Final R esult [facility] CLIA # [id number] [address] [address] [place] [address] * (ABNORMAL) CBC WITH DIFFERENTIAL (05/18/2025 4:54 AM CDT) WBC 15.1(H) 4.8 - 10.8 K/uL 05/18/2025 5:05 AM CDT [facility] RBC 4.43(L) 4.60 - 6.20 M/uL 05/18/2025 5:05 AM T [facility] HEMOGLOBIN 13.3(L) 14.0 - 18.0 g/dL 05/18/2025 5:05 AM T [facility] HEMATOCRIT 40.1(L) 41.0 - 53.0 % 05/18/2025 5:05 AM T [facility] MCV 90.5 84.0 - 103.0 fL 05/18/2025 5:05 AM T [facility] MCH 30.0 27.0 - 34.0 pg 05/18/2025 5:05 AM T [facility] MCHC 33.2 30.0 - 35.0 g/dL 05/18/2025 5:05 AM T [facility] PLATELETS 555(H) 140 - 440 K/uL 05/18/2025 5:05 AM T [facility] MPV 9.1 8.9 - 12.8 fL 05/18/2025 5:05 AM T [facility] RDW 14.9(H) 11.0 - 14.5 % 05/18/2025 5:05 AM T [facility] RDW-STDEV 49.4 37.0 - 54.0 fL 05/18/2025 5:05 AM [facility] NEUTROPHILS 58 42 - 75 % 05/18/2025 5:05 AM T [facility] LYMPHOCYTES 18(L) 24 - 44 % 05/18/2025 5:05 AM CDT [facility] MONOCYTES 12(H) 2 - 10 % 05/18/2025 5:05 AM T [facility] EOSINOPHILS 11(H) 0 - 7 % 05/18/2025 5:05 AM T [facility] BASOPHILS 1 0 - 1 % 05/18/2025 5:05 AM [facility] IMMATURE GRANULOCYTES 0 0 - 2 % 05/18/2025 5:05 AM T [facility] NEUTROPHIL ABSOLUTE 8.69(H) 2.00 - 8.00 K/uL 05/18/2025 5:05 AM T [facility] LYMPHOCYTE ABSOLUTE 2.77 1.20 - 4.00 K/uL 05/18/2025 5:05 AM T [facility] MONOCYTE ABSOLUTE 1.81(H) 0.10 - 0.60 K/uL 05/18/2025 5:05 AM T [facility] EOSINOPHIL ABSOLUTE 1.65(H) 0.00 - 0.70 K/uL 05/18/2025 5:05 AM [facility] BASOPHILS ABSOLUTE 0.09 0.00 - 0.20 K/uL 05/18/2025 5:05 AM [facility] IMMATURE GRANULOCYTES ABSOLUTE 0.06 0.00 - 0.10 K/uL 05/18/2025 5:05 AM [facility] SMEAR REVIEWED: NA - Not Applicable 05/18/2025 5:05 AM [facility] Blood Venipuncture / Unknown 05/18/2025 4:54 AM CDT 05/18/2025 5:00 AM CDT us Duc Cmap MD HEMATOLOGY ORDERABLES Final Result [facility] CLIA # [id number] [address] [address] [place] [address] * XR CHEST PA OR AP 1 VW (05/18/2025 4:36 AM CDT) Anatomical Region Laterality Modality Chest Computed Radiogr aphy 05/18/2025 4:36 AM CDT Impressions 05/18/2025 7:26 AM CDT IMPRESSION: See below. Exam: XR CHEST PA OR AP 1 VW Date/Time of Exam: 05/18/2025 4:36 AM Reason For Exam: Pneumothorax. Diagnosis: See Reason for Exam. Prior: 05/17/2025 Findings: Cardiac silhouette is within normal limits. Unchanged left apical thoracostomy tube and left pigtail catheter. Unchanged moderate left pneumothorax. Increased left basilar consolidation and thickening along the left basilar visceral pleura. Right lung is clear. Osseous structures are unchanged. Unchanged soft tissue gas overlying the chest. Narrative Procedure Note Chidi Schmidt, DO - 05/18/2025 IMPRESSION: See below. Exam: XR CHEST PA OR AP 1 VW Date/Time of Exam: 05/18/2025 4:36 AM Reason For Exam: Pneumothorax. Diagnosis: See Reason for Exam. Prior: 05/17/2025 Findings: Cardiac silhouette is within normal limits. Unchanged left apical thoracostomy tube and left pigtail catheter. Unchanged moderate left pneumothorax. Increased left basilar consolidation and thickening along the left basilar visceral pleura. Right lung is clear. Osseous structures are unchanged. Unchanged soft tissue gas overlying the chest. Puma Atkins MD DIAGNOSTIC IMAGING ORDERABLES F inal Result * (ABNORMAL) RENAL FUNCTION PANEL (05/17/2025 11:11 PM CDT) SODIUM 136 136 - 145 mmol/L 05/17/2025 11:56 PM CDT [facility] [place] POTASSIUM 4.7 3.5 - 5.1 mmol/L 05/17/2025 11:56 PM CDT [facility] [place] CHLORIDE 103 98 - 107 mmol/L 05/17/2025 11:56 PM CDT [facility] [place] CO2 22 22 - 29 mmol/L 05/17/2025 11:56 PM T [facility] CALCIUM 9.0 8.6 - 10.0 mg/dL 05/17/2025 11:56 PM CDT [facility] BUN 32(H) 6 - 20 mg/dL 05/17/2025 11:56 PM CDT [facility] CREATININE 1.68(H) 0.67 - 1.17 mg/dL 05/17/2025 11:56 PM CDT [facility] GLUCOSE 113(H) 74 - 99 mg/dL 05/17/2025 11:56 PM T [facility] ALBUMIN 3.3(L) 3.5 - 5.2 g/dL 05/17/2025 11:56 PM T [facility] PHOSPHORUS 3.6 2.5 - 4.5 mg/dL 05/17/2025 11:56 PM T [facility] GFR 47(L) >=60 mL/min/1. 73 sq meter 05/17/2025 11:56 PM T [facility] Comment:eGFR calculated with 2020 CKD-EPI equation. Vegetarian diet, extremely high or low muscle mass, and may affect results. Cystatin C with Glomerular Filtration Rate is a suitable alternative for these patients. ANION GAP 11 9 - 20 mmol/L 05/17/2025 11:56 PM T [facility] Blood Venipuncture / Unknown 05/17/2025 11:11 PM CDT 05/17/2025 11:21 PM CDT us Duc Camp MD CHEMISTRY ORDERABLES Final R esult [facility] CLIA # [id number] [address] [place] [address] * (ABNORMAL) CBC WITH DIFFERENTIAL (05/17/2025 11:11 PM CDT) WBC 17.2(H) 4.8 - 10.8 K/uL 05/17/2025 11:59 PM CDT [facility] RBC 4.14(L) 4.60 - 6.20 M/uL 05/17/2025 11:59 PM [facility] HEMOGLOBIN 12.4(L) 14.0 - 18.0 g/dL 05/17/2025 11:59 PM [facility] HEMATOCRIT 37.0(L) 41.0 - 53.0 % 05/17/2025 11:59 PM [facility] MCV 89.4 84.0 - 103.0 fL 05/17/2025 11:59 PM [facility] MCH 30.0 27.0 - 34.0 pg 05/17/2025 11:59 PM [facility] MCHC 33.5 30.0 - 35.0 g/dL 05/17/2025 11:59 PM [facility] PLATELETS 517(H) 140 - 440 K/uL 05/17/2025 11:59 PM [facility] MPV 9.3 8.9 - 12.8 fL 05/17/2025 11:59 PM [facility] RDW 14.9(H) 11.0 - 14.5 % 05/17/2025 11:59 PM [facility] RDW-STDEV 48.1 37.0 - 54.0 fL 05/17/2025 11:59 PM [facility] NEUTROPHILS 61 42 - 75 % 05/17/2025 11:59 PM [facility] LYMPHOCYTES 12(L) 24 - 44 % 05/17/2025 11:59 PM [facility] MONOCYTES 11(H) 2 - 10 % 05/17/2025 11:59 PM [facility] EOSINOPHILS 15(H) 0 - 7 % 05/17/2025 11:59 PM [facility] BASOPHILS 1 0 - 1 % 05/17/2025 11:59 PM [facility] IMMATURE GRANULOCYTES 0 0 - 2 % 05/17/2025 11:59 PM [facility] NEUTROPHIL ABSOLUTE 10.47(H) 2.00 - 8.00 K/uL 05/17/2025 11:59 PM CDT [facility] LYMPHOCYTE ABSOLUTE 2.05 1.20 - 4.00 K/uL 05/17/2025 11:59 PM CDT [facility] MONOCYTE ABSOLUTE 1.89(H) 0.10 - 0.60 K/uL 05/17/2025 11:59 PM CDT [facility] EOSINOPHIL ABSOLUTE 2.58(H) 0.00 - 0.70 K/uL 05/17/2025 11:59 PM CDT [facility] BASOPHILS ABSOLUTE 0.09 0.00 - 0.20 K/uL 05/17/2025 11:59 PM CDT [facility] IMMATURE GRANULOCYTES ABSOLUTE 0.07 0.00 - 0.10 K/uL 05/17/2025 11:59 PM CDT [facility] SMEAR REVIEWED: WBC - Automated differential confirmed. 05/17/2025 11:59 PM CDT [facility] Comment:This is a corrected result. Previous result was NA - Not Applicable on 05/17/2025 at 2333 CDT Blood Venipuncture / Unknown 05/17/2025 11:11 PM CDT 05/17/2025 11:21 PM CDT us Duc Camp MD HEMATOLOGY ORDERABLES Final Result [facility] CLIA # [id number] [address] [address] * EKG 12-LEAD (05/17/2025 12:53 PM CDT) 05/17/2025 12:5 3 PM CDT Narrative INTERFACE SYSTEM - 05/18/2025 6:39 AM CDT [address] [address] Test Date: 2025-05-17 Pat Name: FROYLAN MCKEONWELL Department: 12 Room: 4267 01 Gender: Male 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: [email or web address] : 1965 Requested By: Order Number: [id number] Reading MD: Dariana Newsome Measurements Intervals Wallace Rate: 92 P: 44 NE: 142 QRS: -18 QRSD: 82 T: 69 QT: 338 QTc: 417 Interpretive Statements Normal sinus rhythm Normal ECG Electronically Signed On 05-18-2025 6:39:05 CDT by Dariana Newsome Procedure Note Dariana Newsome MD - 05/18/2025 [id number] [place] [address] Test Date: 2025-05-17 Pat Name: FROYLAN YAN Department: 12 Room: [address] [place] [address] Gender: Male [employer]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 : 1965 Requested By: Order Number: [id number] Reading MD: Dariana Newsome Measurements Intervals Wallace Rate: 92 P: 44 NE: 142 QRS: -18 QRSD: 82 T: 69 QT: 338 QTc: 417 Interpretive Statements Normal sinus rhythm Normal ECG Electronically Signed On 05-18-2025 6:39:05 CDT by Dariana Newsome us Duc Camp MD ECG ORDERABLES Final Result Performing Organization Address City/State/[facility] Co de Phone Number INTERFACE SYSTEM Refer to clinic/hospital department * XR CHEST PA OR AP 1 VW (05/17/2025 5:26 AM CDT) Anatomical Region Laterality Modality Chest Computed Radiogr aphy 05/17/2025 5:26 AM CDT Impressions 05/17/2025 6:25 AM CDT IMPRESSION: See below. Exam: XR CHEST PA OR AP 1 VW Date/Time of Exam: 05/17/2025 5:26 AM Reason For Exam: Pneumothorax. Diagnosis: See Reason for Exam. Prior: 05/16/2025 Findings: Cardiac silhouette is within normal limits. Unchanged left pigtail catheter and left apical thoracostomy tube. Slight increased size of left basilar pneumothorax. Persistent patchy left basilar opacities. Cardiac silhouette is within normal limits. No pleural effusion. Osseous structures are unchanged. Unchanged soft tissue gas overlying the left chest and supraclavicular fossae. IMPRESSION: Unchanged left thoracostomy tubes with increased left basilar pneumothorax. Narrative Procedure Note Chidi Schmidt DO - 05/17/2025 IMPRESSION: See below. Exam: XR CHEST PA OR AP 1 VW Date/Time of Exam: 05/17/2025 5:26 AM Reason For Exam: Pneumothorax. Diagnosis: See Reason for Exam. Prior: 05/16/2025 Findings: Cardiac silhouette is within normal limits. Unchanged left pigtail catheter and left apical thoracostomy tube. Slight increased size of left basilar pneumothorax. Persistent patchy left basilar opacities. Cardiac silhouette is within normal limits. No pleural effusion. Osseous structures are unchanged. Unchanged soft tissue gas overlying the left chest and supraclavicular fossae. IMPRESSION: Unchanged left thoracostomy tubes with increased left basilar pneumothorax. Puma Atkins MD DIAGNOSTIC IMAGING ORDERABLES F inal Result * XR CHEST PA OR AP 1 VW (05/16/2025 6:03 AM CDT) Anatomical Region Laterality Modality Chest Computed Radiogr aphy 05/16/2025 6:03 AM CDT Impressions 05/16/2025 6:41 AM CDT IMPRESSION: Please see below. Exam: XR CHEST PA OR AP 1 VW Date/Time of Exam: 05/16/2025 6:03 AM REASON FOR EXAM: Pneumothorax. DIAGNOSIS: See Reason for Exam. Findings: The left thoracostomy tube and pigtail drain are unchanged in configuration. There is a small lateral and basilar pneumothorax, similar to the margination. No visible apical pneumothorax is identified. Subcutaneous emphysema is relatively stable. Findings consistent with COPD/emphysema are again noted. The cardiomediastinal silhouette is stable in appearance. IMPRESSION: No significant interval change. Narrative Procedure Note Rocky Moreno MD - 05/16/2025 IMPRESSION: Please see below. Exam: XR CHEST PA OR AP 1 VW Date/Time of Exam: 05/16/2025 6:03 AM REASON FOR EXAM: Pneumothorax. DIAGNOSIS: See Reason for Exam. Findings: The left thoracostomy tube and pigtail drain are unchanged in configuration. There is a small lateral and basilar pneumothorax, similar to the margination. No visible apical pneumothorax is identified. Subcutaneous emphysema is relatively stable. Findings consistent with COPD/emphysema are again noted. The cardiomediastinal silhouette is stable in appearance. IMPRESSION: No significant interval change. Puma Atkins MD DIAGNOSTIC IMAGING ORDERABLES F inal Result * (ABNORMAL) BASIC METABOLIC PANEL (05/16/2025 5:00 AM CDT) SODIUM 139 136 - 145 mmol/L 05/16/2025 5:58 AM [facility] POTASSIUM 4.9 3.5 - 5.1 mmol/L 05/16/2025 5:58 AM [facility] CHLORIDE 104 98 - 107 mmol/L 05/16/2025 5:58 AM [facility] CO2 26 22 - 29 mmol/L 05/16/2025 5:58 AM [facility] CALCIUM 9.0 8.6 - 10.0 mg/dL 05/16/2025 5:58 AM [facility] BUN 28(H) 6 - 20 mg/dL 05/16/2025 5:58 AM [facility] CREATININE 1.81(H) 0.67 - 1.17 mg/dL 05/16/2025 5:58 AM [facility] GLUCOSE 104(H) 74 - 99 mg/dL 05/16/2025 5:58 AM [facility] GFR 43(L) >=60 mL/min/1. 73 sq meter 05/16/2025 5:58 AM [facility] Comment:eGFR calculated with 2020 CKD-EPI equation. Vegetarian diet, extremely high or low muscle mass, and may affect results. Cystatin C with Glomerular Filtration Rate is a suitable alternative for these patients. ANION GAP 9 9 - 20 mmol/L 05/16/2025 5:58 AM [facility] Blood Venipuncture / Unknown 05/16/2025 5:00 AM CDT 05/16/2025 5:17 AM CDT us Harmeet Kim MD CHEMISTRY ORDERABLES Final Resu lt [facility] CLIA # [id number] [address] [address] [place] [address] * (ABNORMAL) CBC WITH DIFFERENTIAL (05/16/2025 5:00 AM CDT) [facility] WBC 16.5(H) 4.8 - 10.8 K/uL 05/16/2025 5:50 AM CDT [facility] RBC 4.14(L) 4.60 - 6.20 M/uL 05/16/2025 5:50 AM CDT [facility] HEMOGLOBIN 12.3(L) 14.0 - 18.0 g/dL 05/16/2025 5:50 AM CDT [facility] HEMATOCRIT 37.1(L) 41.0 - 53.0 % 05/16/2025 5:50 AM CDT [facility] MCV 89.6 84.0 - 103.0 fL 05/16/2025 5:50 AM CDT [facility] MCH 29.7 27.0 - 34.0 pg 05/16/2025 5:50 AM CDT [facility] MCHC 33.2 30.0 - 35.0 g/dL 05/16/2025 5:50 AM CDT [facility] PLATELETS 542(H) 140 - 440 K/uL 05/16/2025 5:50 AM CDT [facility] MPV 9.0 8.9 - 12.8 fL 05/16/2025 5:50 AM CDT [facility] RDW 14.8(H) 11.0 - 14.5 % 05/16/2025 5:50 AM CDT [facility] RDW-STDEV 48.5 37.0 - 54.0 fL 05/16/2025 5:50 AM CDT [facility] NEUTROPHILS 49 42 - 75 % 05/16/2025 5:50 AM CDT [facility] LYMPHOCYTES 18(L) 24 - 44 % 05/16/2025 5:50 AM CDT [facility] MONOCYTES 8 2 - 10 % 05/16/2025 5:50 AM CDT [facility] EOSINOPHILS 24(H) 0 - 7 % 05/16/2025 5:50 AM CDT [facility] BASOPHILS 1 0 - 1 % 05/16/2025 5:50 AM CDT [facility] IMMATURE GRANULOCYTES 1 0 - 2 % 05/16/2025 5:50 AM CDT [facility] NEUTROPHIL ABSOLUTE 8.09(H) 2.00 - 8.00 K/uL 05/16/2025 5:50 AM CDT [facility] LYMPHOCYTE ABSOLUTE 3.01 1.20 - 4.00 K/uL 05/16/2025 5:50 AM CDT [facility] MONOCYTE ABSOLUTE 1.34(H) 0.10 - 0.60 K/uL 05/16/2025 5:50 AM CDT [facility] EOSINOPHIL ABSOLUTE 3.89(H) 0.00 - 0.70 K/uL 05/16/2025 5:50 AM CDT [facility] BASOPHILS ABSOLUTE 0.09 0.00 - 0.20 K/uL 05/16/2025 5:50 AM CDT [facility] IMMATURE GRANULOCYTES ABSOLUTE 0.08 0.00 - 0.10 K/uL 05/16/2025 5:50 AM CDT [facility] SMEAR REVIEWED: WBC - Automated differential confirmed. 05/16/2025 5:50 AM CDT [facility] Comment:This is a corrected result. Previous result was NA - Not Applicable on 05/16/2025 at 0523 CDT Blood Venipuncture / Unknown 05/16/2025 5:00 AM CDT 05/16/2025 5:16 AM CDT Harmeet Kim MD HEMATOLOGY ORDERABLES Final Res ult [facility] # [id number] [address] [address] [place] [address] * XR CHEST PA OR AP 1 VW (05/15/2025 3:41 PM CDT) Anatomical Region Laterality Modality Chest Computed Radiogr aphy 05/15/2025 3:41 PM CDT Impressions 05/15/2025 4:13 PM CDT IMPRESSION: Mild interval increase in size of small left pneumothorax with thoracostomy tubes in place. Narrative 05/15/2025 4:13 PM CDT Exam: XR CHEST PA OR AP 1 VW Date/Time of Exam: 05/15/2025 3:41 PM Reason For Exam: Other - Please see comments, Comment: Chest tube clamped. Diagnosis: See Reason for Exam. Comparison: 05/15/2025. Findings: Left-sided thoracostomy tubes remain in place without apparent interval change in position. There is redemonstration of a small left basilar pneumothorax which appears slightly increased in size. There is redemonstration of nonspecific hazy basilar pulmonary opacities which appear unchanged. There is no new consolidation or appreciable pleural fluid. The cardiomediastinal structures appear stable. There is redemonstration of prominent subcutaneous emphysema. Procedure Note Rocky Gross, DO - 05/15/2025 Exam: XR CHEST PA OR AP 1 VW Date/Time of Exam: 05/15/2025 3:41 PM Reason For Exam: Other - Please see comments, Comment: Chest tube clamped. Diagnosis: See Reason for Exam. Comparison: 05/15/2025. Findings: Left-sided thoracostomy tubes remain in place without apparent interval change in position. There is redemonstration of a small left basilar pneumothorax which appears slightly increased in size. There is redemonstration of nonspecific hazy basilar pulmonary opacities which appear unchanged. There is no new consolidation or appreciable pleural fluid. The cardiomediastinal structures appear stable. There is redemonstration of prominent subcutaneous emphysema. IMPRESSION: Mild interval increase in size of small left pneumothorax with thoracostomy tubes in place. Ammy LÓPEZ DIAGNOSTIC IMAGING ORDER KAVITHA Final Result * (ABNORMAL) CBC WITH DIFFERENTIAL (05/15/2025 4:49 AM CDT) WBC 14.3(H) 4.8 - 10.8 K/uL 05/15/2025 5:56 AM CDT [facility] RBC 4.22(L) 4.60 - 6.20 M/uL 05/15/2025 5:56 AM CDT [facility] HEMOGLOBIN 12.6(L) 14.0 - 18.0 g/dL 05/15/2025 5:56 AM [facility] 38.3(L) 41.0 - 53.0 % 05/15/2025 5:56 AM [facility] MCV 90.8 84.0 - 103.0 fL 05/15/2025 5:56 AM [facility] MCH 29.9 27.0 - 34.0 pg 05/15/2025 5:56 AM [facility] MCHC 32.9 30.0 - 35.0 g/dL 05/15/2025 5:56 AM [facility] PLATELETS 564(H) 140 - 440 K/uL 05/15/2025 5:56 AM [facility] MPV 9.5 8.9 - 12.8 fL 05/15/2025 5:56 AM [facility] RDW 14.9(H) 11.0 - 14.5 % 05/15/2025 5:56 AM [facility] RDW-STDEV 49.8 37.0 - 54.0 fL 05/15/2025 5:56 AM [facility] NEUTROPHILS 48 42 - 75 % 05/15/2025 5:56 AM [facility] LYMPHOCYTES 19(L) 24 - 44 % 05/15/2025 5:56 AM [facility] MONOCYTES 8 2 - 10 % 05/15/2025 5:56 AM CDT [facility] [employer] [facility] EOSINOPHILS 24(H) 0 - 7 % 05/15/2025 5:56 AM CDT [facility] BASOPHILS 0 0 - 1 % 05/15/2025 5:56 AM CDT [facility] IMMATURE GRANULOCYTES 0 0 - 2 % 05/15/2025 5:56 AM CDT [facility] NEUTROPHIL ABSOLUTE 6.88 2.00 - 8.00 K/uL 05/15/2025 5:56 AM CDT [facility] LYMPHOCYTE ABSOLUTE 2.75 1.20 - 4.00 K/uL 05/15/2025 5:56 AM CDT [facility] MONOCYTE ABSOLUTE 1.15(H) 0.10 - 0.60 K/uL 05/15/2025 5:56 AM CDT [facility] EOSINOPHIL ABSOLUTE 3.40(H) 0.00 - 0.70 K/uL 05/15/2025 5:56 AM CDT [facility] BASOPHILS ABSOLUTE 0.05 0.00 - 0.20 K/uL 05/15/2025 5:56 AM CDT [facility] IMMATURE GRANULOCYTES ABSOLUTE 0.06 0.00 - 0.10 K/uL 05/15/2025 5:56 AM CDT [facility] SMEAR REVIEWED: WBC - Automated differential confirmed. 05/15/2025 5:56 AM CDT [facility] Comment:This is a corrected result. Previous result was NA - Not Applicable on 05/15/2025 at 0540 CDT Blood Venipuncture / Unknown 05/15/2025 4:49 AM CDT 05/15/2025 5:33 AM CDT us Pyiush Niño MD HEMATOLOGY ORDERABLES Final Resu lt [facility] CLIA # [id number] [address] [place] [address] * XR CHEST PA OR AP 1 VW (05/15/2025 4:32 AM CDT) Anatomical Region Laterality Modality Chest Computed Radiogr aphy 05/15/2025 4:32 AM CDT Impressions 05/15/2025 6:39 AM CDT IMPRESSION: Please see below. Exam: XR CHEST PA OR AP 1 VW Date/Time of Exam: 05/15/2025 4:32 AM REASON FOR EXAM: Pneumothorax. DIAGNOSIS: See Reason for Exam. Findings: The left thoracostomy tube and pleural pigtail drain are unchanged in configuration since yesterday's examination. There is a small lateral pneumothorax at the insertion site of the drains, unchanged since the prior examination. No visible apical pneumothorax identified. Subcutaneous emphysema along the left chest wall and neck and extending to the base of the right neck is again identified. Emphysematous changes are again identified bilaterally with some atelectasis in the lingula and left lung base. A tiny basilar pneumothorax is noted as well. The cardiac mediastinal silhouette is stable in appearance. IMPRESSION: No significant interval change. Narrative Procedure Note Rocky Moreno MD - 05/15/2025 IMPRESSION: Please see below. Exam: XR CHEST PA OR AP 1 VW Date/Time of Exam: 05/15/2025 4:32 AM REASON FOR EXAM: Pneumothorax. DIAGNOSIS: See Reason for Exam. Findings: The left thoracostomy tube and pleural pigtail drain are unchanged in configuration since yesterday's examination. There is a small lateral pneumothorax at the insertion site of the drains, unchanged since the prior examination. No visible apical pneumothorax identified. Subcutaneous emphysema along the left chest wall and neck and extending to the base of the right neck is again identified. Emphysematous changes are again identified bilaterally with some atelectasis in the lingula and left lung base. A tiny basilar pneumothorax is noted as well. The cardiac mediastinal silhouette is stable in appearance. IMPRESSION: No significant interval change. us Wyatt NATHAN DIAGNOSTIC IMAGING ORDERABLES Final Result * XR CHEST PA OR AP 1 VW (05/14/2025 9:36 AM CDT) Anatomical Region Laterality Modality Chest Computed Radiogr aphy 05/14/2025 9:36 AM CDT Impressions 05/14/2025 10:35 AM CDT IMPRESSION: See below. Exam: XR CHEST PA OR AP 1 VW Date/Time of Exam: 05/14/2025 9:36 AM Reason For Exam: Post-Operative, Comment: chest tube placement. Diagnosis: See Reason for Exam. Prior: 05/14/2025 Findings: Status post placement of a left apical thoracotomy tube. Unchanged pigtail catheter overlying the left lower chest. Improved expansion of the left lung with persistent small left basilar pneumothorax. Consolidation is seen within the left lower lung. No pleural effusion. Right lung is clear. Moderate soft tissue gas overlying the upper chest. Osseous structures are unchanged. Narrative Procedure Note Chidi Schmidt, DO - 05/14/2025 IMPRESSION: See below. Exam: XR CHEST PA OR AP 1 VW Date/Time of Exam: 05/14/2025 9:36 AM Reason For Exam: Post-Operative, Comment: chest tube placement. Diagnosis: See Reason for Exam. Prior: 05/14/2025 Findings: Status post placement of a left apical thoracotomy tube. Unchanged pigtail catheter overlying the left lower chest. Improved expansion of the left lung with persistent small left basilar pneumothorax. Consolidation is seen within the left lower lung. No pleural effusion. Right lung is clear. Moderate soft tissue gas overlying the upper chest. Osseous structures are unchanged. Wyatt NATHAN DIAGNOSTIC IMAGING ORDERABLES Final Result * XR CHEST PA OR AP 1 VW (05/14/2025 7:25 AM CDT) Anatomical Region Laterality Modality Chest Computed Radiogr aphy 05/14/2025 7:25 AM CDT Impressions 05/14/2025 8:12 AM CDT IMPRESSION: Enlarging moderate left-sided pneumothorax. Narrative 05/14/2025 8:12 AM CDT EXAM: XR CHEST PA OR AP 1 VW DATE/TIME OF EXAM: 05/14/2025 7:25 AM REASON FOR EXAM: Pneumothorax DIAGNOSIS: See Reason for Exam COMPARISON: 05/13/2025 FINDINGS: - Lines/tubes: Left-sided pigtail pleural drainage catheter projects in similar position. - Cardiomediastinal: Contours are within normal limits. - Lungs/pleura: Increasing moderate left-sided pneumothorax with the lung now projecting approximately 2.3 cm from the adjacent chest wall (increased compared to yesterday). Associated slightly decreased expansion/aeration of the left lung. No new or progressive airspace opacities. No significant pleural fluid. - Bones and soft tissues: Extensive soft tissue emphysema throughout the chest wall persists. - Additional comments: The findings and/or imaging diagnoses in the above impression have been deemed a critical result by the interpreting radiologist and immediately reported as such to the ordering physician or appropriate licensed caregiver in accordance with current radiology department policy. Procedure Note Kody Molina MD - 05/14/2025 EXAM: XR CHEST PA OR AP 1 VW DATE/TIME OF EXAM: 05/14/2025 7:25 AM REASON FOR EXAM: Pneumothorax DIAGNOSIS: See Reason for Exam COMPARISON: 05/13/2025 FINDINGS: - Lines/tubes: Left-sided pigtail pleural drainage catheter projects in similar position. - Cardiomediastinal: Contours are within normal limits. - Lungs/pleura: Increasing moderate left-sided pneumothorax with the lung now projecting approximately 2.3 cm from the adjacent chest wall (increased compared to yesterday). Associated slightly decreased expansion/aeration of the left lung. No new or progressive airspace opacities. No significant pleural fluid. - Bones and soft tissues: Extensive soft tissue emphysema throughout the chest wall persists. - Additional comments: The findings and/or imaging diagnoses in the above impression have been deemed a critical result by the interpreting radiologist and immediately reported as such to the ordering physician or appropriate licensed caregiver in accordance with current radiology department policy. IMPRESSION: Enlarging moderate left-sided pneumothorax. Wyatt NATHAN DIAGNOSTIC IMAGING ORDERABLES Final Result * XR CHEST PA OR AP 1 VW (05/13/2025 10:10 AM CDT) Anatomical Region Laterality Modality Chest Computed Radiogr aphy 05/13/2025 10:1 0 AM CDT Impressions 05/13/2025 10:46 AM CDT IMPRESSION: Please see below. Exam: XR CHEST PA OR AP 1 VW Date/Time of Exam: 05/13/2025 10:10 AM Reason For Exam: Pneumothorax. Diagnosis: See Reason for Exam. Findings: Comparison study 05/13/2025. Partially reexpanded left lung with residual small left basilar pneumothorax. Stable position of left-sided pigtail drain. No new consolidating airspace disease with stable mild partial basilar atelectasis. No significant pleural effusion. Similar pattern of extensive subcutaneous air both sides of chest wall and neck. Cardiac silhouette stable. Narrative Procedure Note Joshua Wright MD - 05/13/2025 IMPRESSION: Please see below. Exam: XR CHEST PA OR AP 1 VW Date/Time of Exam: 05/13/2025 10:10 AM Reason For Exam: Pneumothorax. Diagnosis: See Reason for Exam. Findings: Comparison study 05/13/2025. Partially reexpanded left lung with residual small left basilar pneumothorax. Stable position of left-sided pigtail drain. No new consolidating airspace disease with stable mild partial basilar atelectasis. No significant pleural effusion. Similar pattern of extensive subcutaneous air both sides of chest wall and neck. Cardiac silhouette stable. Wyatt NATHAN DIAGNOSTIC IMAGING ORDERABLES Final Result * XR CHEST PA OR AP 1 VW (05/13/2025 4:44 AM CDT) Anatomical Region Laterality Modality Chest Computed Radiogr aphy 05/13/2025 4:44 AM CDT Impressions 05/13/2025 7:38 AM CDT IMPRESSION: Please see below. Exam: XR CHEST PA OR AP 1 VW Date/Time of Exam: 05/13/2025 4:44 AM Reason For Exam: Pneumothorax. Diagnosis: See Reason for Exam. Findings: Comparison study 05/12/2025. Progression of moderately large left-sided pneumothorax. Stable position of pigtail drain left hemithorax. No significant pleural effusion. No new airspace disease. Stable extensive subcutaneous air both sides of chest wall and neck. IMPRESSION: Progression of moderately large left-sided pneumothorax. Stable position of left-sided pigtail drain. Narrative Procedure Note Joshua Wright MD - 05/13/2025 IMPRESSION: Please see below. Exam: XR CHEST PA OR AP 1 VW Date/Time of Exam: 05/13/2025 4:44 AM Reason For Exam: Pneumothorax. Diagnosis: See Reason for Exam. Findings: Comparison study 05/12/2025. Progression of moderately large left-sided pneumothorax. Stable position of pigtail drain left hemithorax. No significant pleural effusion. No new airspace disease. Stable extensive subcutaneous air both sides of chest wall and neck. IMPRESSION: Progression of moderately large left-sided pneumothorax. Stable position of left-sided pigtail drain. Piyush Niño MD DIAGNOSTIC IMAGING ORDERABLES Fi nal Result * (ABNORMAL) BASIC METABOLIC PANEL (05/13/2025 1:10 AM CDT) Pathologist [facility] SODIUM 137 136 - 145 mmol/L 05/13/2025 2:04 AM [facility] POTASSIUM 4.4 3.5 - 5.1 mmol/L 05/13/2025 2:04 AM [facility] CHLORIDE 103 98 - 107 mmol/L 05/13/2025 2:04 AM [facility] CO2 22 22 - 29 mmol/L 05/13/2025 2:04 AM [facility] CALCIUM 8.7 8.6 - 10.0 mg/dL 05/13/2025 2:04 AM [facility] BUN 31(H) 6 - 20 mg/dL 05/13/2025 2:04 AM [facility] CREATININE 1.67(H) 0.67 - 1.17 mg/dL 05/13/2025 2:04 AM [facility] GLUCOSE 105(H) 74 - 99 mg/dL 05/13/2025 2:04 AM [facility] GFR 47(L) >=60 mL/min/1. 73 sq meter 05/13/2025 2:04 AM [facility] Comment:eGFR calculated with 2020 CKD-EPI equation. Vegetarian diet, extremely high or low muscle mass, and may affect results. Cystatin C with Glomerular Filtration Rate is a suitable alternative for these patients. ANION GAP 12 9 - 20 mmol/L 05/13/2025 2:04 AM [facility] Blood Venipuncture / Unknown 05/13/2025 1:10 AM CDT 05/13/2025 1:26 AM CDT us Piyush Niño MD CHEMISTRY ORDERABLES Final Resul t [facility] CLIA # [id number] [id number] [place] [address] * (ABNORMAL) CBC WITH DIFFERENTIAL (05/13/2025 1:10 AM CDT) [facility] WBC 15.5(H) 4.8 - 10.8 K/uL 05/13/2025 2:26 AM CDT [facility] RBC 4.01(L) 4.60 - 6.20 M/uL 05/13/2025 2:26 AM CDT [facility] HEMOGLOBIN 12.1(L) 14.0 - 18.0 g/dL 05/13/2025 2:26 AM CDT [facility] HEMATOCRIT 36.3(L) 41.0 - 53.0 % 05/13/2025 2:26 AM CDT [facility] MCV 90.5 84.0 - 103.0 fL 05/13/2025 2:26 AM CDT [facility] MCH 30.2 27.0 - 34.0 pg 05/13/2025 2:26 AM CDT [facility] MCHC 33.3 30.0 - 35.0 g/dL 05/13/2025 2:26 AM CDT [facility] PLATELETS 580(H) 140 - 440 K/uL 05/13/2025 2:26 AM CDT [facility] MPV 9.3 8.9 - 12.8 fL 05/13/2025 2:26 AM CDT [facility] RDW 14.7(H) 11.0 - 14.5 % 05/13/2025 2:26 AM CDT [facility] RDW-STDEV 49.0 37.0 - 54.0 fL 05/13/2025 2:26 AM CDT [facility] NEUTROPHILS 54 42 - 75 % 05/13/2025 2:26 AM CDT [facility] LYMPHOCYTES 21(L) 24 - 44 % 05/13/2025 2:26 AM T [facility] MONOCYTES 8 2 - 10 % 05/13/2025 2:26 AM T [facility] EOSINOPHILS 17(H) 0 - 7 % 05/13/2025 2:26 AM T [facility] BASOPHILS 0 0 - 1 % 05/13/2025 2:26 AM CDT [facility] IMMATURE GRANULOCYTES 1 0 - 2 % 05/13/2025 2:26 AM CDT [facility] NEUTROPHIL ABSOLUTE 8.27(H) 2.00 - 8.00 K/uL 05/13/2025 2:26 AM CDT [facility] LYMPHOCYTE ABSOLUTE 3.32 1.20 - 4.00 K/uL 05/13/2025 2:26 AM T [facility] MONOCYTE ABSOLUTE 1.18(H) 0.10 - 0.60 K/uL 05/13/2025 2:26 AM CDT [facility] EOSINOPHIL ABSOLUTE 2.59(H) 0.00 - 0.70 K/uL 05/13/2025 2:26 AM CDT [facility] BASOPHILS ABSOLUTE 0.04 0.00 - 0.20 K/uL 05/13/2025 2:26 AM T [facility] IMMATURE GRANULOCYTES ABSOLUTE 0.08 0.00 - 0.10 K/uL 05/13/2025 2:26 AM T [facility] SMEAR REVIEWED: WBC - Automated differential confirmed. 05/13/2025 2:26 AM T [facility] Blood Venipuncture / Unknown 05/13/2025 1:10 AM CDT 05/13/2025 1:26 AM CDT us Piyush Niño MD HEMATOLOGY ORDERABLES Final Resu lt [facility] CLIA # [id number] [id number] [place] [address] * XR CHEST PA OR AP 1 VW (05/12/2025 12:00 PM CDT) Anatomical Region Laterality Modality Chest Computed Radiogr aphy 05/12/2025 12:0 0 PM CDT Narrative 05/12/2025 12:31 PM CDT EXAM: XR CHEST PA OR AP 1 VW DATE/TIME OF EXAM: 05/12/2025 12:00 PM REASON FOR EXAM: Line Placement, Comment: re-evaluate PTX DIAGNOSIS: See Reason for Exam COMPARISON: Radiograph performed earlier today FINDINGS: 1. Left-sided pigtail pleural drainage catheter projects in similar position. 2. No significant interval change in appearance of the residual left basilar predominant pneumothorax. 3. Overall similar radiographic appearance of the chest compared to earlier today. Procedure Note Kody Molina MD - 05/12/2025 EXAM: XR CHEST PA OR AP 1 VW DATE/TIME OF EXAM: 05/12/2025 12:00 PM REASON FOR EXAM: Line Placement, Comment: re-evaluate PTX DIAGNOSIS: See Reason for Exam COMPARISON: Radiograph performed earlier today FINDINGS: 1. Left-sided pigtail pleural drainage catheter projects in similar position. 2. No significant interval change in appearance of the residual left basilar predominant pneumothorax. 3. Overall similar radiographic appearance of the chest compared to earlier today. Zabrina Bynum PAFela DIAGNOSTIC IMAGING OR DERABLES Final Result * XR CHEST PA OR AP 1 VW (05/12/2025 9:05 AM CDT) Anatomical Region Laterality Modality Chest Computed Radiogr aphy 05/12/2025 9:05 AM CDT Narrative 05/12/2025 9:43 AM CDT XR CHEST PA OR AP 1 VW Reason For Exam: Pneumothorax. Diagnosis: See Reason for Exam. COMPARISON: 05/11/2025 FINDINGS: Left chest tube remains in place. Left pneumothorax has moderately decreased in size. No new abnormality. Procedure Note Tomas Wheat MD - 05/12/2025 XR CHEST PA OR AP 1 VW Reason For Exam: Pneumothorax. Diagnosis: See Reason for Exam. COMPARISON: 05/11/2025 FINDINGS: Left chest tube remains in place. Left pneumothorax has moderately decreased in size. No new abnormality. Piyush Niño MD DIAGNOSTIC IMAGING ORDERABLES Fi nal Result * XR CHEST PA OR AP 1 VW (05/11/2025 5:10 AM CDT) Anatomical Region Laterality Modality Chest Computed Radiogr aphy 05/11/2025 5:10 AM CDT Impressions 05/11/2025 7:44 AM CDT IMPRESSION: Left pneumothorax has significantly increased in size, now approximately 40%. Narrative 05/11/2025 7:44 AM CDT Exam: XR CHEST PA OR AP 1 VW Date/Time of Exam: 05/11/2025 5:10 AM Reason For Exam: Pneumothorax Diagnosis: See Reason for Exam Comparison is to a study from the prior day. The left-sided pleural drain tube remains in place. The left pneumothorax has significantly increased in size now approximately 40%. No pneumothorax is seen on the right. Atelectasis is present in the left lower lung. The right lung is clear. The heart size is normal. A large amount of subcutaneous emphysema is again seen over the chest. Procedure Note Darwin Mathur MD - 05/11/2025 Exam: XR CHEST PA OR AP 1 VW Date/Time of Exam: 05/11/2025 5:10 AM Reason For Exam: Pneumothorax Diagnosis: See Reason for Exam Comparison is to a study from the prior day. The left-sided pleural drain tube remains in place. The left pneumothorax has significantly increased in size now approximately 40%. No pneumothorax is seen on the right. Atelectasis is present in the left lower lung. The right lung is clear. The heart size is normal. A large amount of subcutaneous emphysema is again seen over the chest. IMPRESSION: Left pneumothorax has significantly increased in size, now approximately 40%. Thais Shaw AEROPHYSICS ENGINEER DIAGNOSTIC IMAGING ORDERABLES Fi nal Result * PROCEDURE REPORT (05/10/2025 10:06 PM CDT) Narrative Procedure Note Brayden Trammell MD - 05/10/2025 10:06 PM CDT [facility] Pulmonology Patient Name: Froylan Yan Procedure Date: 05/04/2025 Date of : 1965 Admit Type: Inpatient Age: 60 Attending MD: Brayden Trammell MD, Procedure: Bronchoscopy Providers: Brayden Trammell MD Referring MD: Procedure: See epic Estimated Blood Loss: Estimated blood loss: none. Findings: Brayden Trammell MD 05/10/2025 10:06:14 PM Number of Addenda: 0 Note Initiated On: 05/04/2025 12:03 PM Scope In: 12:29:47 PM Scope Out: 12:52:46 PM [facility] [place], [address], [place], [place] Brayden Trammell MD PROCEDURE/MINOR SURGIC AL ORDERABLES Final Result * PT AND APTT (05/10/2025 9:26 AM CDT) PROTIME 14.3 12.7 - 14.9 Seconds 05/10/2025 9:57 AM CDT [facility] INR 1.1 0.8 - 1.2 05/10/2025 9:57 AM CDT [facility] PTT 28.9 24.8 - 37.2 seconds 05/10/2025 9:57 AM CDT [facility] Blood Venipuncture / Unknown 05/10/2025 9:26 AM CDT 05/10/2025 9:42 AM CDT Narrative [facility] - 05/10/2025 9:57 AM CDT Expected Values for INR: DVT/PE Goal INR 2.5; range 2.0 - 3.0 Valve Replacement Tissue Goal INR 2.5; range 2.0 - 3.0 Valve Replacement Mechanical Goal INR 3.0; range 2.5 - 3.5 POST-SC Goal INR 2.5; range 2.0 - 3.0 or Goal INR 3.0; range 2.5 - 3.5 Atrial Fibrillation Goal INR 2.5; range 2.0 - 3.0 Ischemic Stroke Goal INR 2.5; range 2.0 - 3.0 Therapeutic Range: Hi-level PE/DVT heparin protocol 80.1 - 95.0 sec Lo-level PE/DVT heparin protocol 70.1 - 85.0 sec Cardiac Heparin Protocol 70.1 - 100.0 sec Zabrina Bynum PA-C HEMATOLOGY ORDERABLES Final Result [facility] CLIA # [id number] [address] [place] [id number] * (ABNORMAL) CBC WITH DIFFERENTIAL (05/10/2025 9:26 AM CDT) Pathologist [facility] WBC 11.3(H) 4.8 - 10.8 K/uL 05/10/2025 9:49 AM CDT [facility] RBC 4.20(L) 4.60 - 6.20 M/uL 05/10/2025 9:49 AM CDT [facility] HEMOGLOBIN 12.6(L) 14.0 - 18.0 g/dL 05/10/2025 9:49 AM CDT [facility] HEMATOCRIT 38.2(L) 41.0 - 53.0 % 05/10/2025 9:49 AM CDT [facility] MCV 91.0 84.0 - 103.0 fL 05/10/2025 9:49 AM CDT [facility] MCH 30.0 27.0 - 34.0 pg 05/10/2025 9:49 AM CDT [facility] MCHC 33.0 30.0 - 35.0 g/dL 05/10/2025 9:49 AM CDT [facility] PLATELETS 590(H) 140 - 440 K/uL 05/10/2025 9:49 AM CDT [facility] MPV 9.6 8.9 - 12.8 fL 05/10/2025 9:49 AM [facility] RDW 14.7(H) 11.0 - 14.5 % 05/10/2025 9:49 AM [facility] RDW-STDEV 48.9 37.0 - 54.0 fL 05/10/2025 9:49 AM [facility] NEUTROPHILS 70 42 - 75 % 05/10/2025 9:49 AM [facility] LYMPHOCYTES 19(L) 24 - 44 % 05/10/2025 9:49 AM [facility] MONOCYTES 5 2 - 10 % 05/10/2025 9:49 AM [facility] [employer] [facility] EOSINOPHILS 5 0 - 7 % 05/10/2025 9:49 AM [facility] BASOPHILS 0 0 - 1 % 05/10/2025 9:49 AM [facility] IMMATURE GRANULOCYTES 1 0 - 2 % 05/10/2025 9:49 AM [facility] NEUTROPHIL ABSOLUTE 7.89 2.00 - 8.00 K/uL 05/10/2025 9:49 AM [facility] LYMPHOCYTE ABSOLUTE 2.11 1.20 - 4.00 K/uL 05/10/2025 9:49 AM [facility] MONOCYTE ABSOLUTE 0.60 0.10 - 0.60 K/uL 05/10/2025 9:49 AM [facility] EOSINOPHIL ABSOLUTE 0.55 0.00 - 0.70 K/uL 05/10/2025 9:49 AM [facility] BASOPHILS ABSOLUTE 0.03 0.00 - 0.20 K/uL 05/10/2025 9:49 AM [facility] IMMATURE GRANULOCYTES ABSOLUTE 0.09 0.00 - 0.10 K/uL 05/10/2025 9:49 AM [facility] SMEAR REVIEWED: NA - Not Applicable 05/10/2025 9:49 AM [facility] Blood Venipuncture / Unknown 05/10/2025 9:26 AM CDT 05/10/2025 9:42 AM CDT Zabrina Bynum PA-C HEMATOLOGY ORDERABLES Final Result [facility] CLJOLIE # [id number] [address] [address] [place] [address] * (ABNORMAL) COMPREHENSIVE METABOLIC PANEL (05/10/2025 9:26 AM CDT) Pathologist [facility] SODIUM 137 136 - 145 mmol/L 05/10/2025 10:16 AM CDT [facility] POTASSIUM 4.8 3.5 - 5.1 mmol/L 05/10/2025 10:16 AM CDT [facility] CHLORIDE 101 98 - 107 mmol/L 05/10/2025 10:16 AM CDT [facility] CO2 25 22 - 29 mmol/L 05/10/2025 10:16 AM CDT [facility] CALCIUM 9.0 8.6 - 10.0 mg/dL 05/10/2025 10:16 AM CDT [facility] BUN 37(H) 6 - 20 mg/dL 05/10/2025 10:16 AM CDT [facility] CREATININE 1.73(H) 0.67 - 1.17 mg/dL 05/10/2025 10:16 AM CDT [facility] GLUCOSE 108(H) 74 - 99 mg/dL 05/10/2025 10:16 AM CDT [facility] TOTAL PROTEIN 5.9(L) 6.4 - 8.3 g/dL 05/10/2025 10:16 AM CDT [facility] ALBUMIN 3.5 3.5 - 5.2 g/dL 05/10/2025 10:16 AM CDT [facility] BILIRUBIN TOTAL 0.2 0.0 - 1.0 mg/dL 05/10/2025 10:16 AM CDT [facility] ALKALINE PHOSPHATASE 72 40 - 129 U/L 05/10/2025 10:16 AM CDT [facility] AST 27 10 - 50 U/L 05/10/2025 10:16 AM CDT [facility] ALT 35 <=50 U/L 05/10/2025 10:16 AM CDT [facility] GFR 45(L) >=60 mL/min/1. 73 sq meter 05/10/2025 10:16 AM CDT [facility] Comment:eGFR calculated with 2020 CKD-EPI equation. Vegetarian diet, extremely high or low muscle mass, and may affect results. Cystatin C with Glomerular Filtration Rate is a suitable alternative for these patients. ANION GAP 11 9 - 20 mmol/L 05/10/2025 10:16 AM CDT [facility] Blood Venipuncture / Unknown 05/10/2025 9:26 AM CDT 05/10/2025 9:42 AM CDT Zabrina Bynum PA-C CHEMISTRY ORDERABLES Final Result [facility] CLIA # [id number] [address] [place] [id number] * XR CHEST PA OR AP 1 VW (05/10/2025 5:51 AM CDT) Anatomical Region Laterality Modality Chest Computed Radiogr aphy 05/10/2025 5:51 AM CDT Impressions 05/10/2025 7:31 AM CDT IMPRESSION: Please see below. EXAM: XR CHEST PA OR AP 1 VW DATE/TIME OF EXAM: 05/10/2025 5:51 AM REASON FOR STUDY: Pneumothorax DIAGNOSIS: See Reason for Exam COMPARISON: May 09, 2025 TECHNIQUE: A frontal radiograph of the chest was obtained. FINDINGS: Left pigtail catheter in place. Similar appearance left pneumothorax. Extensive chest wall and supraclavicular subcutaneous emphysema, unchanged. Mild residual pneumomediastinum. No lobar consolidation or large pleural effusion. Background emphysematous changes are noted. Normal heart size. Narrative Procedure Note Magarik, Carli María Elena Rishi, MD - 05/10/2025 IMPRESSION: Please see below. EXAM: XR CHEST PA OR AP 1 VW DATE/TIME OF EXAM: 05/10/2025 5:51 AM REASON FOR STUDY: Pneumothorax DIAGNOSIS: See Reason for Exam COMPARISON: May 09, 2025 TECHNIQUE: A frontal radiograph of the chest was obtained. FINDINGS: Left pigtail catheter in place. Similar appearance left pneumothorax. Extensive chest wall and supraclavicular subcutaneous emphysema, unchanged. Mild residual pneumomediastinum. No lobar consolidation or large pleural effusion. Background emphysematous changes are noted. Normal heart size. us Thais Shaw NP DIAGNOSTIC IMAGING ORDERABLES Fi nal Result * XR CHEST PA OR AP 1 VW (05/09/2025 4:35 AM CDT) Anatomical Region Laterality Modality Chest Computed Radiogr aphy 05/09/2025 4:35 AM CDT Impressions 05/09/2025 7:33 AM CDT IMPRESSION: Please see below. Exam: XR CHEST PA OR AP 1 VW Date/Time of Exam: 05/09/2025 4:35 AM Reason For Exam: Pneumothorax. Diagnosis: See Reason for Exam. Findings: The AP upright study is compared to the exam of 05/08/2025 at 1055. A pigtail catheter is again noted in the left chest. There is a persistent small left basilar pneumothorax. There is no appreciable pneumothorax on the right. The right lung is clear. Mild atelectasis is again noted in the left lower lung. The cardiac silhouette is not enlarged. The pulmonary vessels are unremarkable. The bony thorax is grossly intact. Bilateral chest wall gas, left worse than right is again noted. IMPRESSION: No significant interval change. Narrative Procedure Note Tari Burleson MD - 05/09/2025 IMPRESSION: Please see below. Exam: XR CHEST PA OR AP 1 VW Date/Time of Exam: 05/09/2025 4:35 AM Reason For Exam: Pneumothorax. Diagnosis: See Reason for Exam. Findings: The AP upright study is compared to the exam of 05/08/2025 at 1055. A pigtail catheter is again noted in the left chest. There is a persistent small left basilar pneumothorax. There is no appreciable pneumothorax on the right. The right lung is clear. Mild atelectasis is again noted in the left lower lung. The cardiac silhouette is not enlarged. The pulmonary vessels are unremarkable. The bony thorax is grossly intact. Bilateral chest wall gas, left worse than right is again noted. IMPRESSION: No significant interval change. us Thais Shaw NP DIAGNOSTIC IMAGING ORDERABLES Fi nal Result * XR CHEST PA OR AP 1 VW (05/08/2025 11:10 AM CDT) Anatomical Region Laterality Modality Chest Computed Radiogr aphy 05/08/2025 11:1 0 AM CDT Impressions 05/08/2025 11:29 AM CDT IMPRESSION: Please see below. Exam: XR CHEST PA OR AP 1 VW Date/Time of Exam: 05/08/2025 11:10 AM Reason For Exam: Pneumothorax. Diagnosis: See Reason for Exam. Findings: Comparison study 05/06/2025. Stable left basilar pneumothorax. Stable position of pigtail drain within left hemithorax. Stable pattern of partial basilar atelectasis without new or progressive airspace disease. Cardiac silhouette stable. Similar pattern of extensive subcutaneous air of left chest wall and overlying right side of neck. IMPRESSION: No significant change. Narrative Procedure Note Joshua Wright MD - 05/08/2025 IMPRESSION: Please see below. Exam: XR CHEST PA OR AP 1 VW Date/Time of Exam: 05/08/2025 11:10 AM Reason For Exam: Pneumothorax. Diagnosis: See Reason for Exam. Findings: Comparison study 05/06/2025. Stable left basilar pneumothorax. Stable position of pigtail drain within left hemithorax. Stable pattern of partial basilar atelectasis without new or progressive airspace disease. Cardiac silhouette stable. Similar pattern of extensive subcutaneous air of left chest wall and overlying right side of neck. IMPRESSION: No significant change. Jerry Moreno MD DIAGNOSTIC IMAGING ORDERABLES Final Result * XR CHEST PA OR AP 1 VW (05/06/2025 2:32 PM CDT) Anatomical Region Laterality Modality Chest Computed Radiogr aphy 05/06/2025 2:32 PM CDT Impressions 05/06/2025 5:15 PM CDT IMPRESSION: Please see below. Exam: XR CHEST PA OR AP 1 VW Date/Time of Exam: 05/06/2025 2:32 PM Reason For Exam: Pneumothorax. Diagnosis: See Reason for Exam. Comparison: 05/05/2025. Findings: Apical lordotic projection obtained. Left pigtail pleural drain remains in place. Stable cardiomediastinal silhouette lateral left basilar pneumothorax present when compared to the previous exam. The right lung is grossly clear. Persistent significant subcutaneous emphysema of the chest wall and supraclavicular soft tissues, left greater than right. Negative for pleural effusion or definite right sided pneumothorax. Impression: 1. Increase in lateral left basilar pneumothorax when compared to the 05/05/2025 exam. Narrative Procedure Note Isacc Rosado MD - 05/06/2025 IMPRESSION: Please see below. Exam: XR CHEST PA OR AP 1 VW Date/Time of Exam: 05/06/2025 2:32 PM Reason For Exam: Pneumothorax. Diagnosis: See Reason for Exam. Comparison: 05/05/2025. Findings: Apical lordotic projection obtained. Left pigtail pleural drain remains in place. Stable cardiomediastinal silhouette lateral left basilar pneumothorax present when compared to the previous exam. The right lung is grossly clear. Persistent significant subcutaneous emphysema of the chest wall and supraclavicular soft tissues, left greater than right. Negative for pleural effusion or definite right sided pneumothorax. Impression: 1. Increase in lateral left basilar pneumothorax when compared to the 05/05/2025 exam. us Wyatt NATHAN DIAGNOSTIC IMAGING ORDERABLES Final Result * IR TUBE PLACEMENT (05/06/2025 10:45 AM CDT) Anatomical Region Laterality Modality X-Ray Angiograph y 05/06/2025 10:4 5 AM CDT Narrative 05/06/2025 11:13 AM CDT Exam: IR TUBE PLACEMENT Date/Time of Exam: 05/06/2025 10:45 AM Reason For Exam: Chest Tube. Diagnosis: See Reason for Exam. This procedure was performed and preliminary findings dictated by Darin Lucero PA-C. Supervision and final interpretation by Dr. Avery. CONSENT: Risks, benefits, and alternatives of the procedure were discussed with the patient. Specific risks of thoracostomy tube exchange to include, but not limited to: bleeding, infection, pain, loss of access which might require new thoracostomy tube placement, pneumothorax which might require surgery to correct, damage to adjacent tissue/organs, and . Written informed consent was obtained from the patient. Procedure in detail: A time out was performed to verify the patient and procedure. The patient was placed in a supine position on the exam table. The area of the existing left thoracostomy tube was prepped and draped in the usual sterile fashion. All elements of maximal sterile barrier technique, including hand hygiene and cutaneous antisepsis with an antisepsis agent, were used. Local anesthesia was achieved with 1% lidocaine at the existing chest tube site. Existing chest tube was confirmed to be in the pleural space using fluoroscopy. The tube was cut, a J-wire was advanced through the tube into the pleural space, the existing tube was removed over the wire, and a new 14 Marshallese resolved pigtail catheter was advanced to the pleural space over the wire, toward the apex of the left lung. The new pleural drain was immediately connected to -20 cm H2O suction and secured to the skin using 2-0 nylon suture. Final x-ray confirmed appropriate positioning of the new left thoracostomy tube. An intermittent air leak remains in the Pleur-evac. The patient tolerated the procedure well without any complications. Estimated blood loss: None IMPRESSION Successful fluoroscopy-guided left thoracostomy tube exchange. Procedure Note Rocky Avery MD - 05/06/2025 Exam: IR TUBE PLACEMENT Date/Time of Exam: 05/06/2025 10:45 AM Reason For Exam: Chest Tube. Diagnosis: See Reason for Exam. This procedure was performed and preliminary findings dictated by Darin Lucero PA-C. Supervision and final interpretation by Dr. Avery. CONSENT: Risks, benefits, and alternatives of the procedure were discussed with the patient. Specific risks of thoracostomy tube exchange to include, but not limited to: bleeding, infection, pain, loss of access which might require new thoracostomy tube placement, pneumothorax which might require surgery to correct, damage to adjacent tissue/organs, and . Written informed consent was obtained from the patient. Procedure in detail: A time out was performed to verify the patient and procedure. The patient was placed in a supine position on the exam table. The area of the existing left thoracostomy tube was prepped and draped in the usual sterile fashion. All elements of maximal sterile barrier technique, including hand hygiene and cutaneous antisepsis with an antisepsis agent, were used. Local anesthesia was achieved with 1% lidocaine at the existing chest tube site. Existing chest tube was confirmed to be in the pleural space using fluoroscopy. The tube was cut, a J-wire was advanced through the tube into the pleural space, the existing tube was removed over the wire, and a new 14 Marshallese resolved pigtail catheter was advanced to the pleural space over the wire, toward the apex of the left lung. The new pleural drain was immediately connected to -20 cm H2O suction and secured to the skin using 2-0 nylon suture. Final x-ray confirmed appropriate positioning of the new left thoracostomy tube. An intermittent air leak remains in the Pleur-evac. The patient tolerated the procedure well without any complications. Estimated blood loss: None IMPRESSION Successful fluoroscopy-guided left thoracostomy tube exchange. us Wyatt NATHAN IR ORDERABLES Final Result * PROTIME-INR (05/06/2025 7:39 AM CDT) PROTIME 13.5 12.7 - 14.9 Seconds 05/06/2025 8:03 AM CDT [facility] [employer] [facility] INR 1.0 0.8 - 1.2 05/06/2025 8:03 AM CDT [facility] [employer] [facility] Blood Venipuncture / Unknown 05/06/2025 7:39 AM CDT 05/06/2025 7:46 AM CDT Narrative [facility] [employer] [facility] - 05/06/2025 8:03 AM CDT Expected Values for INR: DVT/PE Goal INR 2.5; range 2.0 - 3.0 Valve Replacement Tissue Goal INR 2.5; range 2.0 - 3.0 Valve Replacement Mechanical Goal INR 3.0; range 2.5 - 3.5 POST-SC Goal INR 2.5; range 2.0 - 3.0 or Goal INR 3.0; range 2.5 - 3.5 Atrial Fibrillation Goal INR 2.5; range 2.0 - 3.0 Ischemic Stroke Goal INR 2.5; range 2.0 - 3.0 Zabrina Bynum PA-C HEMATOLOGY ORDERABLES Final Result [facility] CLIA # [id number] [id number] [facility] [place] [address] * (ABNORMAL) CBC WITH DIFFERENTIAL (05/06/2025 7:39 AM CDT) [facility] WBC 10.6 4.8 - 10.8 K/uL 05/06/2025 7:51 AM CDT [facility] RBC 4.22(L) 4.60 - 6.20 M/uL 05/06/2025 7:51 AM CDT [facility] HEMOGLOBIN 12.7(L) 14.0 - 18.0 g/dL 05/06/2025 7:51 AM CDT [facility] HEMATOCRIT 38.0(L) 41.0 - 53.0 % 05/06/2025 7:51 AM CDT [facility] MCV 90.0 84.0 - 103.0 fL 05/06/2025 7:51 AM CDT [facility] MCH 30.1 27.0 - 34.0 pg 05/06/2025 7:51 AM CDT [facility] MCHC 33.4 30.0 - 35.0 g/dL 05/06/2025 7:51 AM CDT [facility] PLATELETS 534(H) 140 - 440 K/uL 05/06/2025 7:51 AM CDT [facility] MPV 9.4 8.9 - 12.8 fL 05/06/2025 7:51 AM CDT [facility] RDW 14.7(H) 11.0 - 14.5 % 05/06/2025 7:51 AM [facility] RDW-STDEV 48.3 37.0 - 54.0 fL 05/06/2025 7:51 AM [facility] NEUTROPHILS 72 42 - 75 % 05/06/2025 7:51 AM [facility] LYMPHOCYTES 21(L) 24 - 44 % 05/06/2025 7:51 AM [facility] MONOCYTES 6 2 - 10 % 05/06/2025 7:51 AM [facility] EOSINOPHILS 1 0 - 7 % 05/06/2025 7:51 AM [facility] BASOPHILS 0 0 - 1 % 05/06/2025 7:51 AM [facility] IMMATURE GRANULOCYTES 0 0 - 2 % 05/06/2025 7:51 AM [facility] NEUTROPHIL ABSOLUTE 7.59 2.00 - 8.00 K/uL 05/06/2025 7:51 AM [facility] LYMPHOCYTE ABSOLUTE 2.25 1.20 - 4.00 K/uL 05/06/2025 7:51 AM [facility] MONOCYTE ABSOLUTE 0.63(H) 0.10 - 0.60 K/uL 05/06/2025 7:51 AM [facility] EOSINOPHIL ABSOLUTE 0.09 0.00 - 0.70 K/uL 05/06/2025 7:51 AM [facility] BASOPHILS ABSOLUTE 0.01 0.00 - 0.20 K/uL 05/06/2025 7:51 AM [facility] IMMATURE GRANULOCYTES ABSOLUTE 0.04 0.00 - 0.10 K/uL 05/06/2025 7:51 AM [facility] SMEAR REVIEWED: NA - Not Applicable 05/06/2025 7:51 AM [facility] Blood Venipuncture / Unknown 05/06/2025 7:39 AM CDT 05/06/2025 7:46 AM CDT Zabrina Bynum PA-C HEMATOLOGY ORDERABLES Final Result Performing Organization Address [facility] Co de Phone Number [facility] CLIA # [id number] [address] [address] * MAGNESIUM LEVEL (05/06/2025 7:39 AM CDT) MAGNESIUM 2.2 1.6 - 2.6 mg/dL 05/06/2025 8:19 AM CDT [facility] Blood Venipuncture / Unknown 05/06/2025 7:39 AM CDT 05/06/2025 7:46 AM CDT [facility] Aide Bynum PA-C CHEMISTRY ORDERABLES Final Result Performing Organization Address [facility] de Phone Number [facility] CLIA # [id number] [address] [address] * (ABNORMAL) BASIC METABOLIC PANEL (05/06/2025 7:39 AM CDT) Pathologist [facility] SODIUM 141 136 - 145 mmol/L 05/06/2025 8:19 AM CDT [facility] POTASSIUM 4.3 3.5 - 5.1 mmol/L 05/06/2025 8:19 AM CDT [facility] CHLORIDE 104 98 - 107 mmol/L 05/06/2025 8:19 AM CDT [facility] CO2 27 22 - 29 mmol/L 05/06/2025 8:19 AM CDT [facility] CALCIUM 9.1 8.6 - 10.0 mg/dL 05/06/2025 8:19 AM CDT [facility] BUN 27(H) 6 - 20 mg/dL 05/06/2025 8:19 AM CDT [facility] CREATININE 1.71(H) 0.67 - 1.17 mg/dL 05/06/2025 8:19 AM CDT [facility] GLUCOSE 126(H) 74 - 99 mg/dL 05/06/2025 8:19 AM T [facility] GFR 46(L) >=60 mL/min/1. 73 sq meter 05/06/2025 8:19 AM T [facility] Comment:eGFR calculated with 2020 CKD-EPI equation. Vegetarian diet, extremely high or low muscle mass, and may affect results. Cystatin C with Glomerular Filtration Rate is a suitable alternative for these patients. ANION GAP 10 9 - 20 mmol/L 05/06/2025 8:19 AM CDT [facility] Blood Venipuncture / Unknown 05/06/2025 7:39 AM CDT 05/06/2025 7:46 AM CDT Zabrina Bynum PA-C CHEMISTRY ORDERABLES Final Result Performing Organization Address City/State/[facility] Co de Phone Number [facility] CLIA # [id number] [address] [place] [id number] * XR CHEST PA OR AP 1 VW (05/05/2025 8:58 AM CDT) Anatomical Region Laterality Modality Chest Computed Radiogr aphy 05/05/2025 8:58 AM CDT Impressions 05/05/2025 9:42 AM CDT IMPRESSION: See below. Exam: XR CHEST PA OR AP 1 VW Date/Time of Exam: 05/05/2025 8:58 AM Reason For Exam: Line Placement. Diagnosis: See Reason for Exam. Findings: Comparison: 05/04/25 Local thoracostomy tube is in similar position. Soft tissue gas overlies the neck and chest which does degrade evaluation for underlying pneumothoraces. Unchanged left basilar pneumothorax. No right-sided pneumothorax. There is left basilar atelectasis. No displaced rib fractures. IMPRESSION: 1. Left thoracostomy tube in place with unchanged left basilar pneumothorax. Narrative Procedure Note Carlos Hickey MD - 05/05/2025 IMPRESSION: See below. Exam: XR CHEST PA OR AP 1 VW Date/Time of Exam: 05/05/2025 8:58 AM Reason For Exam: Line Placement. Diagnosis: See Reason for Exam. Findings: Comparison: 05/04/25 Local thoracostomy tube is in similar position. Soft tissue gas overlies the neck and chest which does degrade evaluation for underlying pneumothoraces. Unchanged left basilar pneumothorax. No right-sided pneumothorax. There is left basilar atelectasis. No displaced rib fractures. IMPRESSION: 1. Left thoracostomy tube in place with unchanged left basilar pneumothorax. Zabrina Bynum PA-C DIAGNOSTIC IMAGING OR DERABLES Final Result * (ABNORMAL) BASIC METABOLIC PANEL (05/05/2025 4:49 AM CDT) SODIUM 137 136 - 145 mmol/L 05/05/2025 5:59 AM T [facility] POTASSIUM 4.5 3.5 - 5.1 mmol/L 05/05/2025 5:59 AM [facility] CHLORIDE 101 98 - 107 mmol/L 05/05/2025 5:59 AM [facility] CO2 26 22 - 29 mmol/L 05/05/2025 5:59 AM [facility] CALCIUM 9.3 8.6 - 10.0 mg/dL 05/05/2025 5:59 AM [facility] BUN 31(H) 6 - 20 mg/dL 05/05/2025 5:59 AM [facility] CREATININE 1.70(H) 0.67 - 1.17 mg/dL 05/05/2025 5:59 AM [facility] GLUCOSE 111(H) 74 - 99 mg/dL 05/05/2025 5:59 AM [facility] GFR 46(L) >=60 mL/min/1. 73 sq meter 05/05/2025 5:59 AM [facility] Comment:eGFR calculated with 2020 CKD-EPI equation. Vegetarian diet, extremely high or low muscle mass, and may affect results. Cystatin C with Glomerular Filtration Rate is a suitable alternative for these patients. ANION GAP 10 9 - 20 mmol/L 05/05/2025 5:59 AM CDT [facility] Blood Venipuncture / Unknown 05/05/2025 4:49 AM CDT 05/05/2025 5:15 AM CDT Shania Posadas MD CHEMISTRY ORDERABLES F inal Result [facility] CLIA # [id number] [address] [address] [place] [address] * (ABNORMAL) CBC WITHOUT DIFFERENTIAL (05/05/2025 4:49 AM CDT) WBC 12.7(H) 4.8 - 10.8 K/uL 05/05/2025 5:23 AM CDT [facility] RBC 4.05(L) 4.60 - 6.20 M/uL 05/05/2025 5:23 AM CDT [facility] HEMOGLOBIN 12.3(L) 14.0 - 18.0 g/dL 05/05/2025 5:23 AM T [facility] HEMATOCRIT 36.1(L) 41.0 - 53.0 % 05/05/2025 5:23 AM T [facility] MCV 89.1 84.0 - 103.0 fL 05/05/2025 5:23 AM CDT [facility] MCH 30.4 27.0 - 34.0 pg 05/05/2025 5:23 AM CDT [facility] MCHC 34.1 30.0 - 35.0 g/dL 05/05/2025 5:23 AM CDT [facility] PLATELETS 473(H) 140 - 440 K/uL 05/05/2025 5:23 AM CDT [facility] MPV 9.8 8.9 - 12.8 fL 05/05/2025 5:23 AM CDT [facility] RDW 14.6(H) 11.0 - 14.5 % 05/05/2025 5:23 AM CDT [facility] RDW-STDEV 47.7 37.0 - 54.0 fL 05/05/2025 5:23 AM CDT [facility] Blood Venipuncture / Unknown 05/05/2025 4:49 AM CDT 05/05/2025 5:15 AM CDT Shania Posadas MD HEMATOLOGY ORDERABLES Final Result [facility] CLIA # [id number] [address] [address] [place] [address] * XR CHEST PA OR AP 1 VW (05/04/2025 1:21 PM CDT) Anatomical Region Laterality Modality Chest Computed Radiogr aphy 05/04/2025 1:21 PM CDT Impressions 05/04/2025 1:42 PM CDT IMPRESSION: Please see below. Exam: XR CHEST PA OR AP 1 VW Date/Time of Exam: 05/04/2025 1:21 PM Reason For Exam: Post-Operative, Comment: Robotic bronch. Diagnosis: See Reason for Exam. Comparison: 05/04/2025. Findings: Left pigtail pleural drain of the left midlung remains in place. Stable cardiomediastinal silhouette with increase in left basal left perihilar atelectasis versus airspace disease. Mild increase in right basilar atelectasis versus airspace disease. Increase in loculated left basilar pneumothorax. Persistent small left apical pneumothorax. Subcutaneous emphysema of the lateral chest whiteside and supraclavicular soft tissues persists. Impression: 1. Increase in left basilar pneumothorax with left pigtail pleural drain remaining in place with increase in left basilar and left perihilar as well as mild right basilar atelectasis versus airspace disease. Narrative Procedure Note Isacc Rosado MD - 05/04/2025 IMPRESSION: Please see below. Exam: XR CHEST PA OR AP 1 VW Date/Time of Exam: 05/04/2025 1:21 PM Reason For Exam: Post-Operative, Comment: Robotic bronch. Diagnosis: See Reason for Exam. Comparison: 05/04/2025. Findings: Left pigtail pleural drain of the left midlung remains in place. Stable cardiomediastinal silhouette with increase in left basal left perihilar atelectasis versus airspace disease. Mild increase in right basilar atelectasis versus airspace disease. Increase in loculated left basilar pneumothorax. Persistent small left apical pneumothorax. Subcutaneous emphysema of the lateral chest whiteside and supraclavicular soft tissues persists. Impression: 1. Increase in left basilar pneumothorax with left pigtail pleural drain remaining in place with increase in left basilar and left perihilar as well as mild right basilar atelectasis versus airspace disease. Brayden Sonny Trammell MD DIAGNOSTIC IMAGING ORD ERABLES Final Result * XR CHEST PA OR AP 1 VW (05/04/2025 9:55 AM CDT) Anatomical Region Laterality Modality Chest Computed Radiogr aphy 05/04/2025 9:55 AM CDT Impressions 05/04/2025 10:54 AM CDT IMPRESSION: Left-sided pneumothorax has significantly decreased in size compared to earlier today with corresponding partial reexpansion of the left lung; a small residual pneumothorax however persists. Narrative 05/04/2025 10:54 AM CDT EXAM: XR CHEST PA OR AP 1 VW DATE/TIME OF EXAM: 05/04/2025 9:55 AM REASON FOR EXAM: Line Placement, Comment: re-eval CT placement DIAGNOSIS: See Reason for Exam COMPARISON: 05/04/2025 FINDINGS: - Lines/tubes: Left-sided pigtail pleural drainage catheter projects along the periphery of the left hemithorax. - Cardiomediastinal: Contours are within normal limits. - Lungs/pleura: Partial reexpansion of the left lung with a small residual apical and basilar pneumothorax. Probable residual atelectasis in the partially reexpanded left lung base/lower lobe. No new consolidative opacity in the right lung. No significant pleural effusion. - Bones and soft tissues: Significant soft tissue emphysema throughout the chest wall, more severe on the left. - Additional comments: None. Procedure Note Tirman, Kody A, MD - 05/04/2025 EXAM: XR CHEST PA OR AP 1 VW DATE/TIME OF EXAM: 05/04/2025 9:55 AM REASON FOR EXAM: Line Placement, Comment: re-eval CT placement DIAGNOSIS: See Reason for Exam COMPARISON: 05/04/2025 FINDINGS: - Lines/tubes: Left-sided pigtail pleural drainage catheter projects along the periphery of the left hemithorax. - Cardiomediastinal: Contours are within normal limits. - Lungs/pleura: Partial reexpansion of the left lung with a small residual apical and basilar pneumothorax. Probable residual atelectasis in the partially reexpanded left lung base/lower lobe. No new consolidative opacity in the right lung. No significant pleural effusion. - Bones and soft tissues: Significant soft tissue emphysema throughout the chest wall, more severe on the left. - Additional comments: None. IMPRESSION: Left-sided pneumothorax has significantly decreased in size compared to earlier today with corresponding partial reexpansion of the left lung; a small residual pneumothorax however persists. Zabrina Bynum PA-C DIAGNOSTIC IMAGING OR DERABLES Final Result * XR CHEST PA OR AP 1 VW (05/04/2025 4:43 AM CDT) Anatomical Region Laterality Modality Chest Computed Radiogr aphy 05/04/2025 4:43 AM CDT Impressions 05/04/2025 10:43 AM CDT IMPRESSION: Please see below. Exam: XR CHEST PA OR AP 1 VW Date/Time of Exam: 05/04/2025 4:43 AM Reason For Exam: Pneumothorax, Comment: pneumothorax. Diagnosis: See Reason for Exam. Comparison: May 03, 2025. FINDINGS: Cardiac mediastinal silhouette is stable. Largely stable bibasilar atelectasis. A new large left-sided pneumothorax is present. A left-sided pigtail pleural drainage catheter remains in place in similar position. Difficult to exclude a small right basilar pneumothorax which is new from prior exam. Extensive air persists throughout the chest wall, left greater than right. Narrative Procedure Note Carlos Bland DO - 05/04/2025 IMPRESSION: Please see below. Exam: XR CHEST PA OR AP 1 VW Date/Time of Exam: 05/04/2025 4:43 AM Reason For Exam: Pneumothorax, Comment: pneumothorax. Diagnosis: See Reason for Exam. Comparison: May 03, 2025. FINDINGS: Cardiac mediastinal silhouette is stable. Largely stable bibasilar atelectasis. A new large left-sided pneumothorax is present. A left-sided pigtail pleural drainage catheter remains in place in similar position. Difficult to exclude a small right basilar pneumothorax which is new from prior exam. Extensive air persists throughout the chest wall, left greater than right. us Thais Shaw AEROPHYSICS ENGINEER DIAGNOSTIC IMAGING ORDERABLES Fi nal Result * XR CHEST PA OR AP 1 VW (05/03/2025 4:34 AM CDT) Anatomical Region Laterality Modality Chest Computed Radiogr aphy 05/03/2025 4:34 AM CDT Impressions 05/03/2025 7:03 AM CDT IMPRESSION: Please see below. Exam: XR CHEST PA OR AP 1 VW Date/Time of Exam: 05/03/2025 4:34 AM Reason For Exam: Pneumothorax, Comment: pneumothorax. Diagnosis: See Reason for Exam. Comparison: 05/02/2025. Findings: Apical lordotic projection obtained. Left pigtail pleural drain of the left midlung present. Persistent loculated left basilar pneumothorax. Stable cardiomediastinal silhouette with increase in left basilar and left perihilar atelectasis versus airspace disease. Linear scar versus platelike atelectasis of the right lung base. Diffuse emphysematous change. No significant pleural effusion or right pneumothorax. Extensive subcutaneous emphysema about the chest wall left greater than right and supraclavicular soft tissues. Impression: 1. Persistent loculated left basilar pneumothorax with increasing left basilar and left perihilar atelectasis versus airspace disease. Narrative Procedure Note Isacc Rosado MD - 05/03/2025 IMPRESSION: Please see below. Exam: XR CHEST PA OR AP 1 VW Date/Time of Exam: 05/03/2025 4:34 AM Reason For Exam: Pneumothorax, Comment: pneumothorax. Diagnosis: See Reason for Exam. Comparison: 05/02/2025. Findings: Apical lordotic projection obtained. Left pigtail pleural drain of the left midlung present. Persistent loculated left basilar pneumothorax. Stable cardiomediastinal silhouette with increase in left basilar and left perihilar atelectasis versus airspace disease. Linear scar versus platelike atelectasis of the right lung base. Diffuse emphysematous change. No significant pleural effusion or right pneumothorax. Extensive subcutaneous emphysema about the chest wall left greater than right and supraclavicular soft tissues. Impression: 1. Persistent loculated left basilar pneumothorax with increasing left basilar and left perihilar atelectasis versus airspace disease. us Thais C Choteau AEROPHYSICS ENGINEER DIAGNOSTIC IMAGING ORDERABLES Fi nal Result * XR CHEST PA OR AP 1 VW (05/02/2025 5:30 AM CDT) Anatomical Region Laterality Modality Chest Computed Radiogr aphy 05/02/2025 5:30 AM CDT Impressions 05/02/2025 6:56 AM CDT IMPRESSION: Small left pneumothorax. Atelectasis and/or infiltrate in the left lower lung. Left pigtail chest tube. Extensive soft tissue emphysema throughout the chest. Emphysema and hyperinflation both lungs. Remainder unremarkable. Narrative 05/02/2025 6:56 AM CDT Exam: Radiographs: XR CHEST PA OR AP 1 VW Indication: Pneumothorax Comparison: Chest x-ray from yesterday Procedure Note Rocky Avery MD - 05/02/2025 Exam: Radiographs: XR CHEST PA OR AP 1 VW Indication: Pneumothorax Comparison: Chest x-ray from yesterday IMPRESSION: Small left pneumothorax. Atelectasis and/or infiltrate in the left lower lung. Left pigtail chest tube. Extensive soft tissue emphysema throughout the chest. Emphysema and hyperinflation both lungs. Remainder unremarkable. us Thais C Choteau AEROPHYSICS ENGINEER DIAGNOSTIC IMAGING ORDERABLES Fi nal Result * XR CHEST PA OR AP 1 VW (05/01/2025 1:50 PM CDT) Anatomical Region Laterality Modality Chest Computed Radiogr aphy 05/01/2025 1:50 PM CDT Narrative 05/01/2025 2:39 PM CDT XR CHEST PA OR AP 1 VW Reason For Exam: Pneumothorax. Diagnosis: See Reason for Exam. COMPARISON: 05/01/2025 FINDINGS: Left chest tube has been adjusted. Left pneumothorax has resolved. No definite abnormality. Procedure Note Tomas Wheat MD - 05/01/2025 XR CHEST PA OR AP 1 VW Reason For Exam: Pneumothorax. Diagnosis: See Reason for Exam. COMPARISON: 05/01/2025 FINDINGS: Left chest tube has been adjusted. Left pneumothorax has resolved. No definite abnormality. us Thais C Choteau AEROPHYSICS ENGINEER DIAGNOSTIC IMAGING ORDERABLES Fi nal Result * XR CHEST PA OR AP 1 VW (05/01/2025 10:32 AM CDT) Anatomical Region Laterality Modality Chest Computed Radiogr aphy 05/01/2025 10:3 2 AM CDT Narrative 05/01/2025 10:57 AM CDT XR CHEST PA OR AP 1 VW Reason For Exam: Pneumothorax. Diagnosis: See Reason for Exam. COMPARISON: 05/01/2025 FINDINGS: Left chest tube is present. However a moderate to large left pneumothorax has developed in the interim. The findings and/or imaging diagnoses in the above impression have been deemed a critical result by the interpreting radiologist and immediately reported as such to the ordering physician or appropriate licensed caregiver in accordance with current radiology department policy. Procedure Note Tomas Wheat MD - 05/01/2025 XR CHEST PA OR AP 1 VW Reason For Exam: Pneumothorax. Diagnosis: See Reason for Exam. COMPARISON: 05/01/2025 FINDINGS: Left chest tube is present. However a moderate to large left pneumothorax has developed in the interim. The findings and/or imaging diagnoses in the above impression have been deemed a critical result by the interpreting radiologist and immediately reported as such to the ordering physician or appropriate licensed caregiver in accordance with current radiology department policy. us Thais C Colin AEROPHYSICS ENGINEER DIAGNOSTIC IMAGING ORDERABLES Fi nal Result * XR CHEST PA OR AP 1 VW (05/01/2025 8:32 AM CDT) Anatomical Region Laterality Modality Chest Computed Radiogr aphy 05/01/2025 8:32 AM CDT Impressions 05/01/2025 8:49 AM CDT IMPRESSION: Small left pneumothorax. Small amount of atelectasis and/or infiltrate in the lower lungs bilaterally. Pigtail left chest tube. Soft tissue emphysema throughout the chest. Emphysema and hyperinflation both lungs. Remainder unremarkable. Narrative 05/01/2025 8:49 AM CDT Exam: Radiographs: XR CHEST PA OR AP 1 VW Indication: Pneumothorax Comparison: Chest x-ray from yesterday Procedure Note Rocky Avery MD - 05/01/2025 Exam: Radiographs: XR CHEST PA OR AP 1 VW Indication: Pneumothorax Comparison: Chest x-ray from yesterday IMPRESSION: Small left pneumothorax. Small amount of atelectasis and/or infiltrate in the lower lungs bilaterally. Pigtail left chest tube. Soft tissue emphysema throughout the chest. Emphysema and hyperinflation both lungs. Remainder unremarkable. 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: [id number] : 1965 Requested By: Order Number: [id number] Reading MD: Jackie Johns Measurements Intervals Wallace Rate: 79 P: 67 NE: 136 QRS: -48 QRSD: 78 T: 70 QT: 354 QTc: 405 Interpretive Statements Sinus rhythm with premature atrial complexes Left anterior fascicular block Abnormal ECG Electronically Signed On 05-02-2025 13:05:03 CDT by Jackie Johns us Richa Melchor Shirley STORE ADMINISTRATIVE ASSISTANT ECG ORDERABLES Final R esult INTERFACE SYSTEM Refer to clinic/hospital department * XR CHEST PA OR AP 1 VW (04/30/2025 3:21 PM CDT) Anatomical Region Laterality Modality Chest Computed Radiogr aphy 04/30/2025 3:21 PM CDT Narrative 04/30/2025 3:36 PM CDT XR CHEST PA OR AP 1 VW Reason For Exam: Pneumothorax. Diagnosis: See Reason for Exam. COMPARISON: 04/30/2025 FINDINGS: Left chest tube remains in place. No definite pneumothorax. No significant change from the prior study otherwise. Procedure Note Tomas Wheat MD - 04/30/2025 XR CHEST PA OR AP 1 VW Reason For Exam: Pneumothorax. Diagnosis: See Reason for Exam. COMPARISON: 04/30/2025 FINDINGS: Left chest tube remains in place. No definite pneumothorax. No significant change from the prior study otherwise. us Thais Shaw AEROPHYSICS ENGINEER DIAGNOSTIC IMAGING ORDERABLES Fi nal Result * CT CHEST WO CONTRAST (04/30/2025 12:01 PM CDT) Anatomical Region Laterality Modality Chest Computed Tomogra phy 04/30/2025 12:0 1 PM CDT Impressions 04/30/2025 12:13 PM CDT IMPRESSION: Please see below. Exam: CT CHEST WO CONTRAST Date/Time of Exam: 04/30/2025 12:01 PM Reason For Exam: Pneumothorax. Diagnosis: See Reason for Exam. Technique: CT of the chest was performed without the administration of intravenous contrast. Comparison: April 30, 2025. FINDINGS: Evaluation of the vasculature is limited without the use of contrast. There is a left-sided chest tube. There is a large left pneumothorax with atelectasis of the left upper and lower lobes. There is masslike consolidation in the left lower lobe which is also favored to represent atelectasis. This measures approximately 48 x 23 mm in size (3-2 98). There is mild right lower lobe atelectasis. There is advanced mixed centrilobular and paraseptal emphysema. The airways appear clear. There is pneumomediastinum present. There is subcutaneous air seen throughout the neck and visualized chest and abdominal whiteside. Numerous hypodense renal lesions compatible with cysts. Single small hyperdense left renal lesion compatible with hemorrhagic or proteinaceous cyst. No destructive lytic or sclerotic bone lesions. IMPRESSION: 1. Large left pneumothorax with left-sided chest tube, pneumomediastinum and subcutaneous emphysema. 2. Masslike opacity in the left lower lobe is favored to represent atelectasis or an infectious/inflammatory process however, neoplasm cannot be excluded. Short interval follow-up chest CT in one month to assess for resolution. 3. Advanced pulmonary emphysema. Narrative Procedure Note Joao Vizcarra MD - 04/30/2025 IMPRESSION: Please see below. Exam: CT CHEST WO CONTRAST Date/Time of Exam: 04/30/2025 12:01 PM Reason For Exam: Pneumothorax. Diagnosis: See Reason for Exam. Technique: CT of the chest was performed without the administration of intravenous contrast. Comparison: April 30, 2025. FINDINGS: Evaluation of the vasculature is limited without the use of contrast. There is a left-sided chest tube. There is a large left pneumothorax with atelectasis of the left upper and lower lobes. There is masslike consolidation in the left lower lobe which is also favored to represent atelectasis. This measures approximately 48 x 23 mm in size (3-2 98). There is mild right lower lobe atelectasis. There is advanced mixed centrilobular and paraseptal emphysema. The airways appear clear. There is pneumomediastinum present. There is subcutaneous air seen throughout the neck and visualized chest and abdominal whiteside. Numerous hypodense renal lesions compatible with cysts. Single small hyperdense left renal lesion compatible with hemorrhagic or proteinaceous cyst. No destructive lytic or sclerotic bone lesions. IMPRESSION: 1. Large left pneumothorax with left-sided chest tube, pneumomediastinum and subcutaneous emphysema. 2. Masslike opacity in the left lower lobe is favored to represent atelectasis or an infectious/inflammatory process however, neoplasm cannot be excluded. Short interval follow-up chest CT in one month to assess for resolution. 3. Advanced pulmonary emphysema. us Thais Shaw AEROPHYSICS ENGINEER CT ORDERABLES Final Result * XR CHEST PA OR AP 1 VW (04/30/2025 4:45 AM CDT) Anatomical Region Laterality Modality Chest Computed Radiogr aphy 04/30/2025 4:45 AM CDT Impressions 04/30/2025 7:26 AM CDT IMPRESSION: 1. Probable tiny left apical pneumothorax, decreased in size compared to yesterday. 2. Otherwise no significant interval change. Narrative 04/30/2025 7:26 AM CDT EXAM: XR CHEST PA OR AP 1 VW DATE/TIME OF EXAM: 04/30/2025 4:45 AM REASON FOR EXAM: Pneumothorax DIAGNOSIS: See Reason for Exam COMPARISON: 04/29/2025 FINDINGS: - Lines/tubes: Pigtail pleural drainage catheter along the periphery of the left hemithorax is unchanged in position. No new support apparatus. - Cardiomediastinal: Contours are within normal limits. - Lungs/pleura: Within limitations of extensive soft tissue emphysema throughout the chest wall, no definitive new pulmonary opacities or edema. Questionable tiny left apical pneumothorax, decreased compared to yesterday. No significant pleural effusion. - Bones and soft tissues: Persistent extensive soft tissue emphysema throughout the left chest wall. - Additional comments: None. Procedure Note Kody Molina MD - 04/30/2025 EXAM: XR CHEST PA OR AP 1 VW DATE/TIME OF EXAM: 04/30/2025 4:45 AM REASON FOR EXAM: Pneumothorax DIAGNOSIS: See Reason for Exam COMPARISON: 04/29/2025 FINDINGS: - Lines/tubes: Pigtail pleural drainage catheter along the periphery of the left hemithorax is unchanged in position. No new support apparatus. - Cardiomediastinal: Contours are within normal limits. - Lungs/pleura: Within limitations of extensive soft tissue emphysema throughout the chest wall, no definitive new pulmonary opacities or edema. Questionable tiny left apical pneumothorax, decreased compared to yesterday. No significant pleural effusion. - Bones and soft tissues: Persistent extensive soft tissue emphysema throughout the left chest wall. - Additional comments: None. IMPRESSION: 1. Probable tiny left apical pneumothorax, decreased in size compared to yesterday. 2. Otherwise no significant interval change. Brayden Trammell MD DIAGNOSTIC IMAGING ORD ERABLES Final Result * (ABNORMAL) BASIC METABOLIC PANEL (04/29/2025 5:54 AM CDT) SODIUM 135(L) 136 - 145 mmol/L 04/29/2025 6:47 AM [facility] POTASSIUM 4.5 3.5 - 5.1 mmol/L 04/29/2025 6:47 AM [facility] CHLORIDE 100 98 - 107 mmol/L 04/29/2025 6:47 AM [facility] CO2 23 22 - 29 mmol/L 04/29/2025 6:47 AM [facility] CALCIUM 9.2 8.6 - 10.0 mg/dL 04/29/2025 6:47 AM [facility] BUN 44(H) 6 - 20 mg/dL 04/29/2025 6:47 AM [facility] CREATININE 1.97(H) 0.67 - 1.17 mg/dL 04/29/2025 6:47 AM [facility] GLUCOSE 114(H) 74 - 99 mg/dL 04/29/2025 6:47 AM [facility] GFR 39(L) >=60 mL/min/1. 73 sq meter 04/29/2025 6:47 AM [facility] Comment:eGFR calculated with 2020 CKD-EPI equation. Vegetarian diet, extremely high or low muscle mass, and may affect results. Cystatin C with Glomerular Filtration Rate is a suitable alternative for these patients. ANION GAP 12 9 - 20 mmol/L 04/29/2025 6:47 AM CDT [facility] Blood Venipuncture / Unknown 04/29/2025 5:54 AM CDT 04/29/2025 6:12 AM CDT Liset William DO CHEMISTRY ORDERABLES Final Resu lt [facility] [employer] [facility] CLIA # [id number] [address] [address] * XR CHEST PA OR AP 1 VW (04/29/2025 4:45 AM CDT) Anatomical Region Laterality Modality Chest Computed Radiogr aphy 04/29/2025 7:08 AM CDT Impressions 04/29/2025 11:45 AM CDT IMPRESSION: Small left pneumothorax which may be slightly increased in size since yesterday. Small amount of atelectasis and/or infiltrate in the lung bases bilaterally. Pigtail left chest tube. Extensive soft tissue emphysema throughout the chest. Possible emphysema. Remainder unremarkable. Narrative 04/29/2025 11:45 AM CDT Exam: Radiographs: XR CHEST PA OR AP 1 VW Indication: Pneumothorax Comparison: Chest x-ray dated 04/28/2025 Procedure Note Rocky Avery MD - 04/29/2025 Exam: Radiographs: XR CHEST PA OR AP 1 VW Indication: Pneumothorax Comparison: Chest x-ray dated 04/28/2025 IMPRESSION: Small left pneumothorax which may be slightly increased in size since yesterday. Small amount of atelectasis and/or infiltrate in the lung bases bilaterally. Pigtail left chest tube. Extensive soft tissue emphysema throughout the chest. Possible emphysema. Remainder unremarkable. Brayden Trammell MD DIAGNOSTIC IMAGING ORD ERABLES Final Result * XR CHEST PA OR AP 1 VW (04/28/2025 5:23 AM CDT) Anatomical Region Laterality Modality Chest Computed Radiogr aphy 04/28/2025 5:24 AM CDT Impressions 04/28/2025 7:50 AM CDT IMPRESSION: Please see below. Exam: XR CHEST PA OR AP 1 VW Date/Time of Exam: 04/28/2025 5:23 AM Reason For Exam: Pneumothorax. Diagnosis: See Reason for Exam. Comparison: 04/27/2025. Findings: Apical lordotic projection obtained with extreme right lung apex not imaged. The extreme left costophrenic angle has been clipped. Stable elevation right hemidiaphragm. Left pigtail pleural drain remains in place. Stable cardiomediastinal silhouette with slight increase in anterior lateral left basilar pneumothorax. Persistent subcutaneous emphysema of the lateral left chest wall and of the infraclavicular soft tissues. Stable blunting of the right costophrenic angle. Negative for right-sided pneumothorax. Impression: 1. Increase in size of probable anterolateral left basilar pneumothorax with left sided pigtail pleural catheter remaining in place. Narrative Procedure Note Isacc Rosado MD - 04/28/2025 IMPRESSION: Please see below. Exam: XR CHEST PA OR AP 1 VW Date/Time of Exam: 04/28/2025 5:23 AM Reason For Exam: Pneumothorax. Diagnosis: See Reason for Exam. Comparison: 04/27/2025. Findings: Apical lordotic projection obtained with extreme right lung apex not imaged. The extreme left costophrenic angle has been clipped. Stable elevation right hemidiaphragm. Left pigtail pleural drain remains in place. Stable cardiomediastinal silhouette with slight increase in anterior lateral left basilar pneumothorax. Persistent subcutaneous emphysema of the lateral left chest wall and of the infraclavicular soft tissues. Stable blunting of the right costophrenic angle. Negative for right-sided pneumothorax. Impression: 1. Increase in size of probable anterolateral left basilar pneumothorax with left sided pigtail pleural catheter remaining in place. Brayden Trammell MD DIAGNOSTIC IMAGING ORD ERABLES Final Result * (ABNORMAL) COMPREHENSIVE METABOLIC PANEL (04/28/2025 5:20 AM CDT) SODIUM 134(L) 136 - 145 mmol/L 04/28/2025 6:36 AM [facility] POTASSIUM 4.5 3.5 - 5.1 mmol/L 04/28/2025 6:36 AM [facility] CHLORIDE 100 98 - 107 mmol/L 04/28/2025 6:36 AM [facility] CO2 19(L) 22 - 29 mmol/L 04/28/2025 6:36 AM [facility] CALCIUM 9.0 8.6 - 10.0 mg/dL 04/28/2025 6:36 AM [facility] BUN 49(H) 6 - 20 mg/dL 04/28/2025 6:36 AM [facility] CREATININE 1.91(H) 0.67 - 1.17 mg/dL 04/28/2025 6:36 AM [facility] GLUCOSE 130(H) 74 - 99 mg/dL 04/28/2025 6:36 AM [facility] TOTAL PROTEIN 6.6 6.4 - 8.3 g/dL 04/28/2025 6:36 AM [facility] ALBUMIN 3.7 3.5 - 5.2 g/dL 04/28/2025 6:36 AM [facility] BILIRUBIN TOTAL 0.3 0.0 - 1.0 mg/dL 04/28/2025 6:36 AM [facility] ALKALINE PHOSPHATASE 72 40 - 129 U/L 04/28/2025 6:36 AM [facility] AST 31 10 - 50 U/L 04/28/2025 6:36 AM [facility] ALT 29 <=50 U/L 04/28/2025 6:36 AM [facility] GFR 40(L) >=60 mL/min/1. 73 sq meter 04/28/2025 6:36 AM [facility] Comment:eGFR calculated with 2020 CKD-EPI equation. Vegetarian diet, extremely high or low muscle mass, and may affect results. Cystatin C with Glomerular Filtration Rate is a suitable alternative for these patients. ANION GAP 15 9 - 20 mmol/L 04/28/2025 6:36 AM T [facility] Blood Venipuncture / Unknown 04/28/2025 5:20 AM CDT 04/28/2025 5:40 AM CDT Edwin Beauchamp MD CHEMISTRY ORDERABLES Final Result [facility] CLIA # [id number] [address] [address] * (ABNORMAL) CBC WITH DIFFERENTIAL (04/28/2025 5:20 AM CDT) WBC 12.0(H) 4.8 - 10.8 K/uL 04/28/2025 5:57 AM CDT [facility] RBC 4.81 4.60 - 6.20 M/uL 04/28/2025 5:57 AM CDT [facility] HEMOGLOBIN 14.2 14.0 - 18.0 g/dL 04/28/2025 5:57 AM T [facility] HEMATOCRIT 42.7 41.0 - 53.0 % 04/28/2025 5:57 AM CDT [facility] MCV 88.8 84.0 - 103.0 fL 04/28/2025 5:57 AM CDT [facility] MCH 29.5 27.0 - 34.0 pg 04/28/2025 5:57 AM CDT [facility] MCHC 33.3 30.0 - 35.0 g/dL 04/28/2025 5:57 AM CDT [facility] PLATELETS 295 140 - 440 K/uL 04/28/2025 5:57 AM CDT [facility] MPV 10.8 8.9 - 12.8 fL 04/28/2025 5:57 AM CDT [facility] RDW 14.9(H) 11.0 - 14.5 % 04/28/2025 5:57 AM T [facility] RDW-STDEV 48.9 37.0 - 54.0 fL 04/28/2025 5:57 [facility] 64 42 - 75 % 04/28/2025 5:57 AM [facility] LYMPHOCYTES 24 24 - 44 % 04/28/2025 5:57 AM T [facility] MONOCYTES 10 2 - 10 % 04/28/2025 5:57 AM CDT [facility] EOSINOPHILS 1 0 - 7 % 04/28/2025 5:57 [facility] BASOP[facility] 0 0 - 1 % 04/28/2025 5:57 AM [facility] IMMATURE GRANULOCYTES 1 0 - 2 % 04/28/2025 5:57 AM [facility] NEUTROPHIL ABSOLUTE 7.66 2.00 - 8.00 K/uL 04/28/2025 5:57 AM [facility] LYMPHOCYTE ABSOLUTE 2.82 1.20 - 4.00 K/uL 04/28/2025 5:57 AM [facility] MONOCYTE ABSOLUTE 1.20(H) 0.10 - 0.60 K/uL 04/28/2025 5:57 AM [facility] EOSINOP[facility]IL ABSOLUTE 0.17 0.00 - 0.70 K/uL 04/28/2025 5:57 AM [facility] BASOPHILS ABSOLUTE 0.04 0.00 - 0.20 K/uL 04/28/2025 5:57 AM [facility] IMMATURE GRANULOCYTES ABSOLUTE 0.06 0.00 - 0.10 K/uL 04/28/2025 5:57 AM [facility] SMEAR REVIEWED: NA - Not Applicable 04/28/2025 5:57 AM [facility] Blood Venipuncture / Unknown 04/28/2025 5:20 AM CDT 04/28/2025 5:40 AM CDT Edwin Beauchamp MD HEMATOLOGY ORDERABLES Final Result Performing Organization Address City/[facility]/ZIP Co de Phone Number [facility] CLIA # [id number] [id number] [place] [address] * PTH INTACT (04/27/2025 6:21 AM CDT) PTH INTACT 43.7 17.9 - 58.6 pg/mL 04/27/2025 7:01 AM CDT [facility] Blood Venipuncture / Unknown 04/27/2025 6:21 AM CDT 04/27/2025 6:28 AM CDT Liset William DO CHEMISTRY ORDERABLES Final Resu lt Performing Organization Address [facility]/ZIP Co de Phone Number [facility] CLIA # [id number] [address] [address] [place] [address] * XR CHEST PA OR AP 1 VW (04/27/2025 4:25 AM CDT) Anatomical Region Laterality Modality Chest Computed Radiogr aphy 04/27/2025 4:25 AM CDT Impressions 04/27/2025 6:21 AM CDT IMPRESSION: No significant interval change. Narrative 04/27/2025 6:21 AM CDT Exam: XR CHEST PA OR AP 1 VW Date/Time of Exam: 04/27/2025 4:25 AM Reason For Exam: Pneumothorax. Diagnosis: See Reason for Exam. Comparison: 04/26/2025. Findings: The left-sided thoracostomy tube remains in place and appears unchanged in position. There is redemonstration of a small suspected left basilar pneumothorax which is unchanged. There is redemonstration of mild hazy perihilar and basilar opacities which are unchanged. There is no new consolidation or appreciable pleural fluid. The cardiomediastinal structures appear stable. Subcutaneous emphysema is redemonstrated. Procedure Note Rocky Gross, - 04/27/2025 Exam: XR CHEST PA OR AP 1 VW Date/Time of Exam: 04/27/2025 4:25 AM Reason For Exam: Pneumothorax. Diagnosis: See Reason for Exam. Comparison: 04/26/2025. Findings: The left-sided thoracostomy tube remains in place and appears unchanged in position. There is redemonstration of a small suspected left basilar pneumothorax which is unchanged. There is redemonstration of mild hazy perihilar and basilar opacities which are unchanged. There is no new consolidation or appreciable pleural fluid. The cardiomediastinal structures appear stable. Subcutaneous emphysema is redemonstrated. IMPRESSION: No significant interval change. Nimisha Nicole [facility] DIAGNOSTIC IMAGING O RDERABLES Final Result * (ABNORMAL) COMPREHENSIVE METABOLIC PANEL (04/27/2025 4:14 AM CDT) SODIUM 134(L) 136 - 145 mmol/L 04/27/2025 5:35 AM CDT [facility] POTASSIUM 4.7 3.5 - 5.1 mmol/L 04/27/2025 5:35 AM CDT [facility] CHLORIDE 102 98 - 107 mmol/L 04/27/2025 5:35 AM CDT [facility] CO2 20(L) 22 - 29 mmol/L 04/27/2025 5:35 AM CDT [facility] CALCIUM 9.3 8.6 - 10.0 mg/dL 04/27/2025 5:35 AM CDT [facility] BUN 51(H) 6 - 20 mg/dL 04/27/2025 5:35 AM CDT [facility] CREATININE 2.16(H) 0.67 - 1.17 mg/dL 04/27/2025 5:35 AM CDT [facility] GLUCOSE 121(H) 74 - 99 mg/dL 04/27/2025 5:35 AM CDT [facility] TOTAL PROTEIN 6.4 6.4 - 8.3 g/dL 04/27/2025 5:35 AM T [facility] ALBUMIN 3.6 3.5 - 5.2 g/dL 04/27/2025 5:35 AM [facility] BILIRUBIN TOTAL 0.4 0.0 - 1.0 mg/dL 04/27/2025 5:35 AM T [facility] ALKALINE PHOSPHATASE 70 40 - 129 U/L 04/27/2025 5:35 AM [facility] AST 26 10 - 50 U/L 04/27/2025 5:35 AM [facility] ALT 25 <=50 U/L 04/27/2025 5:35 AM [facility] GFR 35(L) >=60 mL/min/1. 73 sq meter 04/27/2025 5:35 AM [facility] Comment:eGFR calculated with 2020 CKD-EPI equation. Vegetarian diet, extremely high or low muscle mass, and may affect results. Cystatin C with Glomerular Filtration Rate is a suitable alternative for these patients. ANION GAP 12 9 - 20 mmol/L 04/27/2025 5:35 AM [facility] Blood Venipuncture / Unknown 04/27/2025 4:14 AM CDT 04/27/2025 4:54 AM CDT Edwin Beauchamp MD CHEMISTRY ORDERABLES Final Result [facility] CLIA # [id number] [address] [place] [address] * (ABNORMAL) CBC WITH DIFFERENTIAL (04/27/2025 4:14 AM CDT) Pathologist [facility] WBC 12.8(H) 4.8 - 10.8 K/uL 04/27/2025 5:05 AM T [facility] RBC 4.64 4.60 - 6.20 M/uL 04/27/2025 5:05 AM T [facility] HEMOGLOBIN 14.2 14.0 - 18.0 g/dL 04/27/2025 5:05 AM [facility] HEMATOCRIT 42.4 41.0 - 53.0 % 04/27/2025 5:05 AM [facility] MCV 91.4 84.0 - 103.0 fL 04/27/2025 5:05 AM [facility] MCH 30.6 27.0 - 34.0 pg 04/27/2025 5:05 AM [facility] MCHC 33.5 30.0 - 35.0 g/dL 04/27/2025 5:05 AM [facility] PLATELETS 270 140 - 440 K/uL 04/27/2025 5:05 AM [facility] MPV 11.2 8.9 - 12.8 fL 04/27/2025 5:05 AM [facility] RDW 15.3(H) 11.0 - 14.5 % 04/27/2025 5:05 AM [facility] RDW-STDEV 50.7 37.0 - 54.0 fL 04/27/2025 5:05 AM [facility] NEUTROPHILS 75 42 - 75 % 04/27/2025 5:05 AM [facility] LYMPHOCYTES 15(L) 24 - 44 % 04/27/2025 5:05 AM [facility] MONOCYTES 9 2 - 10 % 04/27/2025 5:05 AM [facility] EOSINOPHILS 1 0 - 7 % 04/27/2025 5:05 AM [facility] BASOPHILS 0 0 - 1 % 04/27/2025 5:05 AM [facility] IMMATURE GRANULOCYTES 0 0 - 2 % 04/27/2025 5:05 AM [facility] NEUTROPHIL ABSOLUTE 9.55(H) 2.00 - 8.00 K/uL 04/27/2025 5:05 AM [facility] LYMPHOCYTE ABSOLUTE 1.89 1.20 - 4.00 K/uL 04/27/2025 5:05 AM [facility] MONOCYTE ABSOLUTE 1.12(H) 0.10 - 0.60 K/uL 04/27/2025 5:05 AM CDT [facility] EOSINOPHIL ABSOLUTE 0.11 0.00 - 0.70 K/uL 04/27/2025 5:05 AM CDT [facility] BASOPHILS ABSOLUTE 0.04 0.00 - 0.20 K/uL 04/27/2025 5:05 AM CDT [facility] IMMATURE GRANULOCYTES ABSOLUTE 0.04 0.00 - 0.10 K/uL 04/27/2025 5:05 AM CDT [facility] SMEAR REVIEWED: NA - Not Applicable 04/27/2025 5:05 AM CDT [facility] Blood Venipuncture / Unknown 04/27/2025 4:14 AM CDT 04/27/2025 4:54 AM CDT Edwin Beauchamp MD HEMATOLOGY ORDERABLES Final Result [facility] CLIA # [id number] [address] [address] * EXTRA TUBE (URINE ROSAS) (04/26/2025 11:40 AM CDT) Urine URINE SPECIMEN OBTAINED BY CLEAN CATCH PROCEDURE / Unknown Collection / Unknown 04/26/2025 11:40 AM CDT 04/26/2025 12:00 PM CDT us Liset William DO URINE ORDERABLES Final Result [facility] CLIA # [id number] [address] [address] * (ABNORMAL) URINALYSIS WITH REFLEX MICROSCOPIC (04/26/2025 11:40 AM CDT) COLOR UA Colorless(A ) Pale to Dark Yellow 04/26/2025 12:07 PM CDT [facility] CLARITY UA Clear Clear 04/26/2025 12:07 PM T [facility] SPECIFIC GRAVITY UA 1.009 1.003 - 1.035 04/26/2025 12:07 PM T [facility] PH UA 5.5 5.0 - 8.0 04/26/2025 12:07 PM T [facility] LEUKOCYTE ESTERASE UA Negative Negative 04/26/2025 12:07 PM T [facility] NITRITE UA Negative Negative 04/26/2025 12:07 PM T [facility] PROTEIN UA Negative Negative 04/26/2025 12:07 PM T [facility] GLUCOSE UA Negative Negative 04/26/2025 12:07 PM T [facility] KETONES UA Negative Negative 04/26/2025 12:07 PM [facility] UROBILINOGEN UA <2.0 <2.0 mg/dL 12:07 PM T [facility] BILIRUBIN UA Negative Negative 04/26/2025 12:07 PM [facility] BLOOD UA Negative Negative 04/26/2025 12:07 PM [facility] Urine URINE SPECIMEN OBTAINED BY CLEAN CATCH PROCEDURE / Unknown Collection / Unknown 04/26/2025 11:40 AM CDT 04/26/2025 12:00 PM CDT us Liset William DO URINE ORDERABLES Final Result [facility] CLIA # [id number] [address] [place] [address] [place], [place] [id number] * BLOOD CULTURE (04/26/2025 9:10 AM CDT) BLOOD CULTURE No growth 05/01/2025 11:28 AM T [facility] Blood (Peripheral) Venipuncture / Unknown 04/26/2025 9:10 AM CDT 04/26/2025 9:30 AM CDT Edwin Beauchamp MD MICROBIOLOGY - GENERA L ORDERABLES Final Result Performing Organization Address [facility] Co de Phone Number [facility] CLIA # [id number] [address] [address] [place] [address] * BLOOD CULTURE (04/26/2025 9:04 AM CDT) BLOOD CULTURE No growth 05/01/2025 11:28 AM CDT [facility] Blood (Peripheral) Venipuncture / Unknown 04/26/2025 9:04 AM CDT 04/26/2025 9:30 AM CDT Edwin Beauchamp MD MICROBIOLOGY - GENERA L ORDERABLES Final Result Performing Organization Address [facility] Co de Phone Number [facility] CLIA # [id number] [address] [address] * (ABNORMAL) VITAMIN D 25 HYDROXY (04/26/2025 9:04 AM CDT) VITAMIN D TOTAL (25OH) 27(L) 30 - 100 ng/mL 04/26/2025 11:42 AM CDT [facility] Blood Venipuncture / Unknown 04/26/2025 9:04 AM CDT 04/26/2025 9:31 AM CDT Narrative [facility] - 04/26/2025 11:42 AM CDT Interpretive Data Chart: Deficient: 0 - 20 ng/mL Insufficient: 21 - 29 ng/mL Sufficient: 30 - 100 ng/mL Increased Risk of Hypercalciuria: >100 ng/ml Toxic: >150 ng/ml Liset Perezy CHEMISTRY ORDERABLES Final Resu lt [facility] # [id number] [id number] [place] [address] * XR CHEST PA OR AP 1 VW (04/26/2025 8:31 AM CDT) Anatomical Region Laterality Modality Chest Computed Radiogr aphy 04/26/2025 8:31 AM CDT Impressions 04/26/2025 8:46 AM CDT IMPRESSION: Left-sided thoracostomy tube in situ with persistent small basal pneumothorax, stable to perhaps slightly increased in the interval. Tiny right basal pneumothorax. Narrative 04/26/2025 8:46 AM CDT Exam: XR CHEST PA OR AP 1 VW Date/Time of Exam: 04/26/2025 8:31 AM Reason For Exam: Pneumothorax. Diagnosis: See Reason for Exam. Findings: The cardiomediastinal silhouette is normal in size and contour. The lung volumes are increased with coarsened interstitial changes. Pigtail thoracostomy tube is present in the lateral left hemithorax. The left basal pneumothorax is similar to perhaps slightly increased in the interval. Extensive subcutaneous emphysema noted throughout the chest wall. Small basal pneumothorax noted at the right costophrenic angle, similar to the prior study. Procedure Note Nilton Mendoza MD - 04/26/2025 Exam: XR CHEST PA OR AP 1 VW Date/Time of Exam: 04/26/2025 8:31 AM Reason For Exam: Pneumothorax. Diagnosis: See Reason for Exam. Findings: The cardiomediastinal silhouette is normal in size and contour. The lung volumes are increased with coarsened interstitial changes. Pigtail thoracostomy tube is present in the lateral left hemithorax. The left basal pneumothorax is similar to perhaps slightly increased in the interval. Extensive subcutaneous emphysema noted throughout the chest wall. Small basal pneumothorax noted at the right costophrenic angle, similar to the prior study. IMPRESSION: Left-sided thoracostomy tube in situ with persistent small basal pneumothorax, stable to perhaps slightly increased in the interval. Tiny right basal pneumothorax. [facility] DIAGNOSTIC [facility]AG[facility] O RDERABLES Final Result * (ABNORMAL) CBC WITHOUT DIFFERENTIAL (04/26/2025 5:16 AM CDT) WBC 13.5(H) 4.8 - 10.8 K/uL 04/26/2025 5:59 AM CDT [facility] RBC 5.17 4.60 - 6.20 M/uL 04/26/2025 5:59 AM CDT [facility] HEMOGLOBIN 15.5 14.0 - 18.0 g/dL 04/26/2025 5:59 AM CDT [facility] HEMATOCRIT 47.8 41.0 - 53.0 % 04/26/2025 5:59 AM CDT [facility] MCV 92.5 84.0 - 103.0 fL 04/26/2025 5:59 AM CDT [facility] MCH 30.0 27.0 - 34.0 pg 04/26/2025 5:59 AM CDT [facility] MCHC 32.4 30.0 - 35.0 g/dL 04/26/2025 5:59 AM CDT [facility] PLATELETS 273 140 - 440 K/uL 04/26/2025 5:59 AM CDT [facility] MPV 11.2 8.9 - 12.8 fL 04/26/2025 5:59 AM CDT [facility] RDW 15.6(H) 11.0 - 14.5 % 04/26/2025 5:59 AM CDT [facility] RDW-STDEV 53.1 37.0 - 54.0 fL 04/26/2025 5:59 AM CDT [facility] Blood Venipuncture / Unknown 04/26/2025 5:16 AM CDT 04/26/2025 5:55 AM [facility]T [facility] HEMATOLOGY ORDERABLE S Final Result [facility] ESTELA # [id number] [address] [address] [place] [address] * (ABNORMAL) BASIC METABOLIC PANEL (04/26/2025 5:16 AM CDT) SODIUM 133(L) 136 - 145 mmol/L 04/26/2025 6:37 AM [facility] POTASSIUM 5.5(H) 3.5 - 5.1 mmol/L 04/26/2025 6:37 AM [facility] Comment:Slightly hemolyzed. Result may be falsely elevated. CHLORIDE 99 98 - 107 mmol/L 04/26/2025 6:37 AM [facility] CO2 20(L) 22 - 29 mmol/L 04/26/2025 6:37 AM [facility] CALCIUM 9.3 8.6 - 10.0 mg/dL 04/26/2025 6:37 AM [facility] BUN 52(H) 6 - 20 mg/dL 04/26/2025 6:37 AM [facility] CREATININE 2.49(H) 0.67 - 1.17 mg/dL 04/26/2025 6:37 AM [facility] GLUCOSE 115(H) 74 - 99 mg/dL 04/26/2025 6:37 AM [facility] GFR 29(L) >=60 mL/min/1. 73 sq meter 04/26/2025 6:37 AM [facility] Comment:eGFR calculated with 2020 CKD-EPI equation. Vegetarian diet, extremely high or low muscle mass, and may affect results. Cystatin C with Glomerular Filtration Rate is a suitable alternative for these patients. ANION GAP 14 9 - 20 mmol/L 04/26/2025 6:37 AM [facility] Blood Venipuncture / Unknown 04/26/2025 5:16 AM CDT 04/26/2025 5:56 AM CDT us Nimisha Nicole MAINTENANCE ASSISTANT-BC CHEMISTRY ORDERABLES Final Result [facility] ESTELA # [id number] [address] [facility] [place] [address] * (ABNORMAL) BASIC METABOLIC PANEL (04/25/2025 5:47 PM CDT) SODIUM 132(L) 136 - 145 mmol/L 04/25/2025 6:31 PM CDT [facility] POTASSIUM 5.4(H) 3.5 - 5.1 mmol/L 04/25/2025 6:31 PM T [facility] CHLORIDE 98 98 - 107 mmol/L 04/25/2025 6:31 PM CDT [facility] CO2 18(L) 22 - 29 mmol/L 04/25/2025 6:31 PM T [facility] CALCIUM 9.0 8.6 - 10.0 mg/dL 04/25/2025 6:31 PM T [facility] BUN 53(H) 6 - 20 mg/dL 04/25/2025 6:31 PM T [facility] CREATININE 2.46(H) 0.67 - 1.17 mg/dL 04/25/2025 6:31 PM T [facility] GLUCOSE 108(H) 74 - 99 mg/dL 04/25/2025 6:31 PM T [facility] GFR 30(L) >=60 mL/min/1. 73 sq meter 04/25/2025 6:31 PM T [facility] Comment:eGFR calculated with 2020 CKD-EPI equation. Vegetarian diet, extremely high or low muscle mass, and may affect results. Cystatin C with Glomerular Filtration Rate is a suitable alternative for these patients. ANION GAP 16 9 - 20 mmol/L 04/25/2025 6:31 PM T [facility] Blood Venipuncture / Unknown 04/25/2025 5:47 PM CDT 04/25/2025 6:00 PM CDT Nimisha Nicole MAINTENANCE ASSISTANT- CHEMISTRY ORDERABLES Final Result [facility] CLIA # [id number] [address] [address] [place] [address] * (ABNORMAL) BASIC METABOLIC PANEL (04/25/2025 11:11 AM CDT) SODIUM 131(L) 136 - 145 mmol/L 04/25/2025 11:46 AM T [facility] POTASSIUM 5.4(H) 3.5 - 5.1 mmol/L 04/25/2025 11:46 AM T [facility] CHLORIDE 98 98 - 107 mmol/L 04/25/2025 11:46 AM T [facility] CO2 17(L) 22 - 29 mmol/L 04/25/2025 11:46 AM [facility] CALCIUM 9.1 8.6 - 10.0 mg/dL 04/25/2025 11:46 AM T [facility] BUN 51(H) 6 - 20 mg/dL 04/25/2025 11:46 AM [facility] CREATININE 2.54(H) 0.67 - 1.17 mg/dL 04/25/2025 11:46 AM T [facility] GLUCOSE 111(H) 74 - 99 mg/dL 04/25/2025 11:46 AM [facility] GFR 29(L) >=60 mL/min/1. 73 sq meter 04/25/2025 11:46 AM [facility] Comment:eGFR calculated with 2020 CKD-EPI equation. Vegetarian diet, extremely high or low muscle mass, and may affect results. Cystatin C with Glomerular Filtration Rate is a suitable alternative for these patients. ANION GAP 16 9 - 20 mmol/L 04/25/2025 11:46 AM [facility] Blood Venipuncture / Unknown 04/25/2025 11:11 AM CDT 04/25/2025 11:15 AM CDT [facility]isha [facility] CHE[facility] ORDERABLES Final Result Performing Organization Address [facility] Co de Phone Number [facility] CLIA # [id number] [address] [facility] [place], [place] [address] * (ABNORMAL) POC GLUCOSE (04/25/2025 10:21 AM CDT) GLUCOSE POC 112(H) 74 - 99 mg/dL 04/25/2025 10:21 AM CDT [facility] SPECIMEN SOURCE, GLUCOSE POC Arterial 04/25/2025 10:21 AM CDT [facility] Blood, whole 04/25/2025 10:2 1 AM CDT 04/25/2025 5:54 PM CDT Edwin Beauchamp MD POINT OF CARE TESTING Final Result Performing Organization Address [facility] de Phone Number [facility] CLIA # [id number] [address] [address] [place] [address] * (ABNORMAL) POC GLUCOSE (04/25/2025 9:26 AM CDT) GLUCOSE POC 101(H) 74 - 99 mg/dL 04/25/2025 9:26 AM CDT [facility] SPECIMEN SOURCE, GLUCOSE POC Capillary 04/25/2025 9:26 AM CDT [facility] Blood, whole 04/25/2025 9:26 AM CDT 04/25/2025 9:32 AM CDT Maxine Alvarado MD POINT OF CARE TESTING Final Resu lt [facility] # [id number] [facility] [address] [address] [place] [address] * XR CHEST PA OR AP 1 VW (04/25/2025 8:33 AM CDT) Anatomical Region Laterality Modality Chest Computed Radiogr aphy 04/25/2025 8:33 AM CDT Impressions 04/25/2025 10:33 AM CDT IMPRESSION: Left pigtail thoracostomy tube in situ with small basal pneumothorax. Small right basal pneumothorax. Extensive subcutaneous emphysema. Narrative 04/25/2025 10:33 AM CDT Exam: XR CHEST PA OR AP 1 VW Date/Time of Exam: 04/25/2025 8:33 AM Reason For Exam: Pneumothorax. Diagnosis: See Reason for Exam. Findings: The cardiomediastinal silhouette is normal in size and contour. The lung volumes are mildly increased with coarsened interstitial changes. Pigtail thoracostomy tube is present in the left lateral hemithorax. There is a persistent small basal pneumothorax and extensive subcutaneous emphysema. Tiny basal pneumothorax also noted on the right. Procedure Note Nilton Mendoza MD - 04/25/2025 Exam: XR CHEST PA OR AP 1 VW Date/Time of Exam: 04/25/2025 8:33 AM Reason For Exam: Pneumothorax. Diagnosis: See Reason for Exam. Findings: The cardiomediastinal silhouette is normal in size and contour. The lung volumes are mildly increased with coarsened interstitial changes. Pigtail thoracostomy tube is present in the left lateral hemithorax. There is a persistent small basal pneumothorax and extensive subcutaneous emphysema. Tiny basal pneumothorax also noted on the right. IMPRESSION: Left pigtail thoracostomy tube in situ with small basal pneumothorax. Small right basal pneumothorax. Extensive subcutaneous emphysema. Nimisha Nicole MAINTENANCE ASSISTANT-BC DIAGNOSTIC IMAGING O RDERABLES Final Result * (ABNORMAL) BLOOD GAS ARTERIAL (04/25/2025 8:22 AM CDT) PH BLOOD POC 7.38 7.35 - 7.45 04/25/2025 8:22 AM [facility] PCO2 POC 33(L) 35 - 45 mm Hg 04/25/2025 8:22 AM [facility] PO2 POC 188(H) 80 - 105 mm Hg 04/25/2025 8:22 AM [facility] HCO3 (CALC) POC 20(L) 22 - 26 mmol/L 04/25/2025 8:22 AM [facility] HEMOGLOBIN POC 15.7 12.0 - 18.0 g/dL 04/25/2025 8:22 AM [facility] BASE EXCESS POC -6(L) -2 - 3 mmol/L 04/25/2025 8:22 AM [facility] O2 SATURATION POC 100(H) 95 - 98 % 04/25/2025 8:22 AM [facility] SODIUM POC 124(L) 138 - 146 mmol/L 04/25/2025 8:22 AM [facility] POTASSIUM POC 5.4(H) 3.5 - 4.9 mmol/L 04/25/2025 8:22 AM [facility] HEMATOCRIT POC 47 38 - 51 % 04/25/2025 8:22 AM [facility] PH TEMP CORRECT 7.38 7.35 - 7.45 04/25/2025 8:22 AM [facility] PCO2 TEMP CORRECT 33(L) 35 - 45 mm Hg 04/25/2025 8:22 AM [facility] PO2 TEMP CORRECT 188(H) 80 - 105 mm Hg 04/25/2025 8:22 AM [facility] SPECIMEN SOURCE, GASES POC Arterial 04/25/2025 8:22 AM [facility] CALCIUM IONIZED POC 4.6(L) 4.8 - 5.2 mg/dL 04/25/2025 8:22 AM [facility] TCO2 (CALC) POC 21(L) 23 - 27 mmol/L 04/25/2025 8:22 AM [facility] PUNC SITE POC ART PUNCT 04/25/2025 8:22 AM CDT [facility] Blood, arterial 04/25/2025 8 :22 AM CDT 04/25/2025 8:24 AM CDT Maxine Alvarado MD ABG ORDERABLES Final Result Performing Organization Address [facility] de Phone Number [facility] CLIA # [id number] [address] [place] [address] * (ABNORMAL) POC GLUCOSE (04/25/2025 7:21 AM CDT) GLUCOSE POC 127(H) 74 - 99 mg/dL 04/25/2025 7:21 AM CDT [facility] SPECIMEN SOURCE, GLUCOSE POC Capillary 04/25/2025 7:21 AM CDT [facility] Blood, whole 04/25/2025 7:21 AM CDT 04/25/2025 9:33 AM CDT Maxine Alvarado MD POINT OF CARE TESTING Final Resu lt Performing Organization Address [facility] Co de Phone Number [facility] CLIA # [id number] [address] [address] * (ABNORMAL) COMPREHENSIVE METABOLIC PANEL (04/25/2025 5:27 AM CDT) SODIUM 132(L) 136 - 145 mmol/L 04/25/2025 6:50 AM CDT [facility] POTASSIUM 6.2(HH) 3.5 - 5.1 mmol/L 04/25/2025 6:50 AM CDT [facility] Comment:Moderate hemolysis p resent. Can cause significant falsely elevated result. Redraw if indicated. CHLORIDE 98 98 - 107 mmol/L 04/25/2025 6:50 [facility] 19(L) 22 - 29 mmol/L 04/25/2025 6:50 AM [facility] CALCIUM 9.4 8.6 - 10.0 mg/dL 04/25/2025 6:50 AM [facility] BUN 47(H) 6 - 20 mg/dL 04/25/2025 6:50 AM [facility] CREATININE 2.44(H) 0.67 - 1.17 mg/dL 04/25/2025 6:50 AM [facility] GLUCOSE 124(H) 74 - 99 mg/dL 04/25/2025 6:50 AM [facility] TOTAL PROTEIN 7.1 6.4 - 8.3 g/dL 04/25/2025 6:50 AM [facility] ALBUMIN 4.0 3.5 - 5.2 g/dL 04/25/2025 6:50 AM [facility] BILIRUBIN TOTAL 0.3 0.0 - 1.0 mg/dL 04/25/2025 6:50 AM [facility] ALKALINE PHOSPHATASE 87 40 - 129 U/L 04/25/2025 6:50 AM [facility] AST 49 10 - 50 U/L 04/25/2025 6:50 AM [facility] Comment:Hemolysis present. R esult may be falsely elevated. ALT 38 <=50 U/L 04/25/2025 6:50 AM [facility] Comment:Hemolysis present. R esult may be falsely elevated. GFR 30(L) >=60 mL/min/1. 73 sq meter 04/25/2025 6:50 AM [facility] Comment:eGFR calculated with 2020 CKD-EPI equation. Vegetarian diet, extremely high or low muscle mass, and may affect results. Cystatin C with Glomerular Filtration Rate is a suitable alternative for these patients. ANION GAP 15 9 - 20 mmol/L 04/25/2025 6:50 AM [facility] Blood Venipuncture / Unknown 04/25/2025 5:27 AM CDT 04/25/2025 5:50 AM CDT us Zoe Devine NP CHEMISTRY ORDERABLES Final Resul t [facility] CLIA # [id number] [address] [address] [place] [address] * (ABNORMAL) CBC WITH DIFFERENTIAL (04/25/2025 5:27 AM CDT) Pathologist [facility] WBC 16.8(H) 4.8 - 10.8 K/uL 04/25/2025 6:05 AM CDT [facility] RBC 4.80 4.60 - 6.20 M/uL 04/25/2025 6:05 AM CDT [facility] HEMOGLOBIN 14.5 14.0 - 18.0 g/dL 04/25/2025 6:05 AM CDT [facility] HEMATOCRIT 43.9 41.0 - 53.0 % 04/25/2025 6:05 AM CDT [facility] MCV 91.5 84.0 - 103.0 fL 04/25/2025 6:05 AM CDT [facility] MCH 30.2 27.0 - 34.0 pg 04/25/2025 6:05 AM T [facility] MCHC 33.0 30.0 - 35.0 g/dL 04/25/2025 6:05 AM T [facility] PLATELETS 289 140 - 440 K/uL 04/25/2025 6:05 AM T [facility] MPV 11.1 8.9 - 12.8 fL 04/25/2025 6:05 AM T [facility] RDW 15.5(H) 11.0 - 14.5 % 04/25/2025 6:05 AM T [facility] RDW-STDEV 51.9 37.0 - 54.0 fL 04/25/2025 6:05 AM CDT [facility] NEUTROPHILS 84(H) 42 - 75 % 04/25/2025 6:05 AM [facility] LYMPHOCYTES 9(L) 24 - 44 % 04/25/2025 6:05 AM [facility] MONOCYTES 6 2 - 10 % 04/25/2025 6:05 AM [facility] EOSINOPHILS 0 0 - 7 % 04/25/2025 6:05 AM [facility] BASOPHILS 0 0 - 1 % 04/25/2025 6:05 AM T [facility] IMMATURE GRANULOCYTES 1 0 - 2 % 04/25/2025 6:05 AM T [facility] NEUTROPHIL ABSOLUTE 14.15(H) 2.00 - 8.00 K/uL 04/25/2025 6:05 AM T [facility] LYMPHOCYTE ABSOLUTE 1.57 1.20 - 4.00 K/uL 04/25/2025 6:05 AM [facility] MONOCYTE ABSOLUTE 0.93(H) 0.10 - 0.60 K/uL 04/25/2025 6:05 AM T [facility] EOSINOPHIL ABSOLUTE 0.01 0.00 - 0.70 K/uL 04/25/2025 6:05 AM [facility] BASOPHILS ABSOLUTE 0.04 0.00 - 0.20 K/uL 04/25/2025 6:05 AM [facility] IMMATURE GRANULOCYTES ABSOLUTE 0.08 0.00 - 0.10 K/uL 04/25/2025 6:05 AM [facility] SMEAR REVIEWED: NA - Not Applicable 04/25/2025 6:05 AM [facility] Blood Venipuncture / Unknown 04/25/2025 5:27 AM CDT 04/25/2025 5:52 AM CDT us Zoe Devine NP HEMATOLOGY ORDERABLES Final Resu lt [facility] CLIA # [id number] [id number] [place] [address] * (ABNORMAL) TROPONIN 6 HR, 5TH GEN (04/25/2025 5:27 AM CDT) TROPONIN T, 6 HR 5TH GEN 28(H) <=15 ng/L 04/25/2025 6:46 AM CDT [facility] Comment:Hemolysis can falsel y decrease Troponin quantitation. DELTA 6HR TROPONIN T 8 See Interp. 04/25/2025 6:46 AM CDT [facility] Blood Venipuncture / Unknown 04/25/2025 5:27 AM CDT 04/25/2025 5:50 AM CDT Narrative [facility] - 04/25/2025 6:46 AM CDT Troponin elevated. Delta indeterminate. Delay in collection of timed specimen beyond recommended collection interval. Results must be interpreted in clinical context. Millie Chacon DO CHEMISTRY ORDERABLES Final R esult [facility] CLIA # [id number] [address] [place] [id number] * XR CHEST PA OR AP 1 VW (04/25/2025 1:10 AM CDT) Anatomical Region Laterality Modality Chest Computed Radiogr aphy 04/25/2025 1:10 AM CDT Impressions 04/25/2025 2:01 AM CDT IMPRESSION: Replacement/repositioning of the left pleural pigtail catheter with resolution of the left-sided pneumothorax and near complete reexpansion of the left lung. Mild bibasilar atelectasis. MACRO: None Narrative 04/25/2025 2:01 AM CDT EXAMINATION: XR CHEST PA OR AP 1 VW CLINICAL HISTORY: ASSOCIATED DIAGNOSIS: Tube Placement, Comment: chest tube ORDERING PROVIDER: [employer]N [employer] NOTE: COMPARISON: Chest radiograph 04/24/2025 FINDINGS: Lines, tubes, and devices: Interval replacement/repositioning of the left pleural pigtail catheter, terminating over the left lateral lung. Lungs and pleura: Reexpansion of the collapsed left lung with left infrahilar streaky opacities suggesting residual partial left lower lobe collapse. Resolution of previously seen pneumothorax with no definite residual pneumothorax identified. Mild right basilar atelectasis. Cardiomediastinal silhouette: Normal cardiomediastinal silhouette. Musculoskeletal: Unchanged left chest wall and bilateral basicervical soft tissue emphysema Procedure Note Loren Rivera MD - 04/25/2025 EXAMINATION: XR CHEST PA OR AP 1 VW CLINICAL HISTORY: ASSOCIATED DIAGNOSIS: Tube Placement, Comment: chest tube ORDERING PROVIDER: TARYN LAI TECHNOLOGISTS NOTE: COMPARISON: Chest radiograph 04/24/2025 FINDINGS: Lines, tubes, and devices: Interval replacement/repositioning of the left pleural pigtail catheter, terminating over the left lateral lung. Lungs and pleura: Reexpansion of the collapsed left lung with left infrahilar streaky opacities suggesting residual partial left lower lobe collapse. Resolution of previously seen pneumothorax with no definite residual pneumothorax identified. Mild right basilar atelectasis. Cardiomediastinal silhouette: Normal cardiomediastinal silhouette. Musculoskeletal: Unchanged left chest wall and bilateral basicervical soft tissue emphysema IMPRESSION: Replacement/repositioning of the left pleural pigtail catheter with resolution of the left-sided pneumothorax and near complete reexpansion of the left lung. Mild bibasilar atelectasis. MACRO: None Taryn Lai MD DIAGNOSTIC IMAGING ORDERA BLES Final Result * (ABNORMAL) POC GLUCOSE (04/24/2025 11:55 PM CDT) GLUCOSE POC 116(H) 74 - 99 mg/dL 04/24/2025 11:55 PM CDT [facility] SPECIMEN SOURCE, GLUCOSE POC Capillary 04/24/2025 11:55 PM CDT [facility] Blood, whole 04/24/2025 11:5 5 PM CDT 04/25/2025 5:50 AM CDT Taryn Lai MD POINT OF CARE TESTING Fin al Result Performing Organization Address [facility] Co de Phone Number [facility] CLIA # [id number] [address] [place] [address] * (ABNORMAL) TROPONIN 2 HR, 5TH GEN (04/24/2025 11:34 PM CDT) TROPONIN T, 2 HR 5TH GEN 22(H) <=15 ng/L 04/25/2025 12:15 AM CDT [facility] [employer] [facility] DELTA 2HR TROPONIN T 2 See Interp. 04/25/2025 12:15 AM CDT [facility] Blood Venipuncture / Unknown 04/24/2025 11:34 PM CDT 04/24/2025 11:41 PM CDT Narrative [facility] [employer] [facility] - 04/25/2025 12:15 AM CDT Troponin elevated. Delta not changing. us Millie Chacon DO CHEMISTRY ORDERABLES Final R esult Performing Organization Address [facility] Co de Phone Number [facility] CLIA # [id number] [address] [place] [phone] * XR CHEST PA OR AP 1 VW (04/24/2025 9:43 PM CDT) Anatomical Region Laterality Modality Chest Computed Radiogr aphy 04/24/2025 9:43 PM CDT Impressions 04/24/2025 11:40 PM CDT IMPRESSION: 1. Retracted left pleural pigtail catheter terminating over the left lateral chest wall tissues with increased large left pneumothorax. Partially collapsed left lung. 2. Findings consistent with air leak into the left thoracic and bilateral cervical soft tissues. MACRO: The findings and/or imaging diagnoses in the above impression have been deemed a critical result by the interpreting radiologist and immediately reported as such to the ordering physician or appropriate licensed caregiver in accordance with current radiology department policy. Narrative 04/24/2025 11:40 PM CDT EXAMINATION: XR CHEST PA OR AP 1 VW CLINICAL HISTORY: ASSOCIATED DIAGNOSIS: Resp Distress ORDERING PROVIDER: MILLIE CHACON TECHNRANDY NOTE: COMPARISON: Chest radiograph 04/24/2025 FINDINGS: Lines, tubes, and devices: Interval retraction/dislodgment of the left pleural pigtail catheter with tip terminating over the left thoracic lateral soft tissues. Lungs and pleura: Large left pneumothorax with flattening of the left hemidiaphragm. Partial collapse of the left lung emphysematous changes of the right lung. No pleural effusion. Cardiomediastinal silhouette: The cardiac silhouette is normal in size. Atherosclerotic calcifications are present in the thoracic aorta. Musculoskeletal: Increased emphysema overlying the left hemithorax and extending into the basicervical tissues. Procedure Note Loren Rivera MD - 04/24/2025 EXAMINATION: XR CHEST PA OR AP 1 VW CLINICAL HISTORY: ASSOCIATED DIAGNOSIS: Resp Distress ORDERING PROVIDER: MILLIE CHACON TECHNOLOGISTS NOTE: COMPARISON: Chest radiograph 04/24/2025 FINDINGS: Lines, tubes, and devices: Interval retraction/dislodgment of the left pleural pigtail catheter with tip terminating over the left thoracic lateral soft tissues. Lungs and pleura: Large left pneumothorax with flattening of the left hemidiaphragm. Partial collapse of the left lung emphysematous changes of the right lung. No pleural effusion. Cardiomediastinal silhouette: The cardiac silhouette is normal in size. Atherosclerotic calcifications are present in the thoracic aorta. Musculoskeletal: Increased emphysema overlying the left hemithorax and extending into the basicervical tissues. IMPRESSION: 1. Retracted left pleural pigtail catheter terminating over the left lateral chest wall tissues with increased large left pneumothorax. Partially collapsed left lung. 2. Findings consistent with air leak into the left thoracic and bilateral cervical soft tissues. MACRO: The findings and/or imaging diagnoses in the above impression have been deemed a critical result by the interpreting radiologist and immediately reported as such to the ordering physician or appropriate licensed caregiver in accordance with current radiology department policy. Millie Chacon DO DIAGNOSTIC IMAGING ORDERABLE S Final Result * (ABNORMAL) TROPONIN BASELINE, 5TH GEN (04/24/2025 9:39 PM CDT) TROPONIN T, BASELINE 5TH GEN 20(H) <=15 ng/L 04/24/2025 10:26 PM CDT [facility] Blood Venipuncture / Unknown 04/24/2025 9:39 PM CDT 04/24/2025 9:54 PM CDT Narrative [facility] - 04/24/2025 10:26 PM CDT Troponin elevated. 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 : 1965 Requested By: Order Number: [id number] Reading : Jackie Johns Measurements Intervals Wallace Rate: 111 P: 73 NE: 158 QRS: -48 QRSD: 76 T: 77 QT: 300 QTc: 408 Interpretive Statements Sinus tachycardia Left axis deviation Abnormal ECG Electronically Signed On 04-25-2025 13:21:27 CDT by Jackie Johns Procedure Note Provider, Historical - 04/25/[address] [address] Test Date: 2025-04-24 Pat Name: FROYLANMadeleine ABBASIYAN Department: 12 Room: [address] [place] [address] Gender: M [employer]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: 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 : 1965 Requested By: Order Number: [id number] Reading MD: Jackie Johns Measurements Intervals Wallace Rate: 111 P: 73 NE: 158 QRS: -48 QRSD: 76 T: 77 QT: 300 QTc: 408 Interpretive Statements Sinus tachycardia Left axis deviation Abnormal ECG Electronically Signed On 04-25-2025 13:21:27 CDT by Jackie Johns us Millie Chacon DO ECG ORDERABLES Final Result Performing Organization Address [facility] Co de Phone Number INTERFACE SYSTEM Refer to clinic/hospital department * (ABNORMAL) POC GLUCOSE (04/24/2025 9:25 PM CDT) [facility] GLUCOSE POC 140(H) 74 - 99 mg/dL 04/24/2025 9:25 PM CDT [facility] SPECIMEN SOURCE, GLUCOSE POC Capillary 04/24/2025 9:25 PM CDT [facility] Blood, whole 04/24/2025 9:25 PM CDT 04/24/2025 9:44 PM CDT us Rocky Gibson DO POINT OF CARE TESTING Fin al Result Performing Organization Address [facility] de Phone Number [facility] CLIA # [id number] [address] [place] [phone] * XR CHEST PA OR AP 1 VW (04/24/2025 3:00 PM CDT) Anatomical Region Laterality Modality Chest Computed Radiogr aphy 04/24/2025 3:00 PM CDT Impressions 04/24/2025 3:15 PM CDT IMPRESSION: 1. 10% left apical pneumothorax. 2. Left pleural drain tube is in place. 3. Bibasilar pulmonary contusions. Narrative 04/24/2025 3:15 PM CDT Exam: XR CHEST PA OR AP 1 VW Date/Time of Exam: 04/24/2025 3:00 PM Reason For Exam: Pneumothorax Diagnosis: See Reason for Exam A left-sided pleural drain tube is in place laterally. A 10% left apical pneumothorax is present. Consolidation is present in the lung bases, the appearance suggesting pulmonary contusion. The heart size is normal. Vertebral body fractures are noted in the lower thoracic spine and are not well demonstrated on this AP plain film study. Procedure Note Darwin Mathur MD - 04/24/2025 Exam: XR CHEST PA OR AP 1 VW Date/Time of Exam: 04/24/2025 3:00 PM Reason For Exam: Pneumothorax Diagnosis: See Reason for Exam A left-sided pleural drain tube is in place laterally. A 10% left apical pneumothorax is present. Consolidation is present in the lung bases, the appearance suggesting pulmonary contusion. The heart size is normal. Vertebral body fractures are noted in the lower thoracic spine and are not well demonstrated on this AP plain film study. IMPRESSION: 1. 10% left apical pneumothorax. 2. Left pleural drain tube is in place. 3. Bibasilar pulmonary contusions. Rocky Gibson DO DIAGNOSTIC IMAGING ORDERA BLES Final Result * PROTIME-INR (04/24/2025 2:13 PM CDT) PROTIME 13.9 12.7 - 14.9 Seconds 04/24/2025 2:27 PM CDT [facility] INR 1.0 0.8 - 1.2 04/24/2025 2:27 PM CDT [facility] Blood Venipuncture / Unknown 04/24/2025 2:13 PM CDT 04/24/2025 2:16 PM CDT Narrative [facility] - 04/24/2025 2:27 PM CDT Expected Values for INR: DVT/PE Goal INR 2.5; range 2.0 - 3.0 Valve Replacement Tissue Goal INR 2.5; range 2.0 - 3.0 Valve Replacement Mechanical Goal INR 3.0; range 2.5 - 3.5 POST-SC Goal INR 2.5; range 2.0 - 3.0 or Goal INR 3.0; range 2.5 - 3.5 Atrial Fibrillation Goal INR 2.5; range 2.0 - 3.0 Ischemic Stroke Goal INR 2.5; range 2.0 - 3.0 Rocky Gibson DO HEMATOLOGY ORDERABLES Fin al Result [facility] CLIA # [id number] [address] [address] [place] [place] [address] * (ABNORMAL) CBC WITHOUT DIFFERENTIAL (04/24/2025 2:13 PM CDT) [facility] WBC 17.2(H) 4.8 - 10.8 K/uL 04/24/2025 2:19 PM CDT [facility] RBC 4.85 4.60 - 6.20 M/uL 04/24/2025 2:19 PM CDT [facility] HEMOGLOBIN 14.6 14.0 - 18.0 g/dL 04/24/2025 2:19 PM CDT [facility] HEMATOCRIT 44.5 41.0 - 53.0 % 04/24/2025 2:19 PM CDT [facility] MCV 91.8 84.0 - 103.0 fL 04/24/2025 2:19 PM CDT [facility] MCH 30.1 27.0 - 34.0 pg 04/24/2025 2:19 PM CDT [facility] MCHC 32.8 30.0 - 35.0 g/dL 04/24/2025 2:19 PM CDT [facility] PLATELETS 303 140 - 440 K/uL 04/24/2025 2:19 PM CDT [facility] MPV 9.9 8.9 - 12.8 fL 04/24/2025 2:19 PM CDT [facility] RDW 15.7(H) 11.0 - 14.5 % 04/24/2025 2:19 PM CDT [facility] RDW-STDEV 52.3 37.0 - 54.0 fL 04/24/2025 2:19 PM CDT [facility] Blood Venipuncture / Unknown 04/24/2025 2:13 PM CDT 04/24/2025 2:16 PM CDT us Rocky Gibson DO HEMATOLOGY ORDERABLES Fin al Result [facility] ESTELA # [id number] [address] [facility] [place] [address] * (ABNORMAL) COMPREHENSIVE METABOLIC PANEL (04/24/2025 2:13 PM CDT) [facility] SODIUM 138 136 - 145 mmol/L 04/24/2025 2:49 PM CDT [facility] POTASSIUM 5.7(H) 3.5 - 5.1 mmol/L 04/24/2025 2:49 PM CDT [facility] CHLORIDE 104 98 - 107 mmol/L 04/24/2025 2:49 PM CDT [facility] CO2 21(L) 22 - 29 mmol/L 04/24/2025 2:49 PM CDT [facility] CALCIUM 9.1 8.6 - 10.0 mg/dL 04/24/2025 2:49 PM CDT [facility] BUN 45(H) 6 - 20 mg/dL 04/24/2025 2:49 PM CDT [facility] CREATININE 2.23(H) 0.67 - 1.17 mg/dL 04/24/2025 2:49 PM CDT [facility] GLUCOSE 114(H) 74 - 99 mg/dL 04/24/2025 2:49 PM CDT [facility] TOTAL PROTEIN 7.0 6.4 - 8.3 g/dL 04/24/2025 2:49 PM CDT [facility] ALBUMIN 4.4 3.5 - 5.2 g/dL 04/24/2025 2:49 PM CDT [facility] BILIRUBIN TOTAL 0.2 0.0 - 1.0 mg/dL 04/24/2025 2:49 PM CDT [facility] ALKALINE PHOSPHATASE 85 40 - 129 U/L 04/24/2025 2:49 PM CDT [facility] AST 31 10 - 50 U/L 04/24/2025 2:49 PM CDT [facility] ALT 36 <=50 U/L 04/24/2025 2:49 PM CDT [facility] GFR 33(L) >=60 mL/min/1. 73 sq meter 04/24/2025 2:49 PM CDT [facility] Comment:eGFR calculated with 2020 CKD-EPI equation. Vegetarian diet, extremely high or low muscle mass, and may affect results. Cystatin C with Glomerular Filtration Rate is a suitable alternative for these patients. ANION GAP 13 9 - 20 mmol/L 04/24/2025 2:49 PM CDT [facility] Blood Venipuncture / Unknown 04/24/2025 2:13 PM CDT 04/24/2025 2:17 PM CDT us Rocky Gibson DO CHEMISTRY ORDERABLES Eve bhatia Result Performing Organization Address City/State/[facility] Co de Phone Number [facility] CLIA # [id number] [address] [place] [phone] documented in this encounter Visit Diagnoses Diagnosis Secondary spontaneous pneumothorax- Primary Chronic kidney disease, stage IV (severe) ([facility]/HCC) Chronic kidney disease, Stage IV (severe) Secondary spontaneous pneumothorax Cigarette smoker Tobacco use disorder Elevated serum creatinine Other nonspecific findings on examination of blood Hyperkalemia Hyperpotassemia Acute respiratory failure with hypoxia ([facility]) Acute respiratory failure Chronic kidney disease, stage IV (severe) ([facility]/HCC) Chronic kidney disease, Stage IV (severe) Moderate protein-calorie malnutrition Malnutrition of moderate degree Hypertension, essential Unspecified essential hypertension documented in this encounter Administered Medications Inactive Administered Medications - up to 3 most recent administrations Medication Order MAR Action Action Date Dose Rate Site acetaminophen (TYLENOL) tablet 1,000 mg 1,000 mg, Oral, EVERY 6 HOURS, First dose (after last modification) on Sat05/14/25 at 1200, Until Discontinued, Routine Given 05/15/2025 5:36 AM CDT 1,000 mg Given 05/15/2025 1:11 AM CDT 1,000 mg Given 05/14/2025 6:04 PM CDT 1,000 mg acetaminophen (TYLENOL) tablet 650 mg 650 mg, Oral, EVERY 6 HOURS PRN, Starting on Sat04/24/25 at 1443, Until Sat05/14/25 at 0916, Other (See Comment), See admin instructions, Routine Given 05/08/2025 8:22 PM CDT 650 mg acetaminophen (TYLENOL) tablet 650 mg 650 mg, Oral, EVERY 6 HOURS, First dose (after last modification) on Sat05/15/25 at 1200, Until Discontinued, Routine Given 05/26/2025 5:25 AM CDT 650 mg Given 05/26/2025 12:20 AM CDT 650 mg Given 05/25/2025 5:25 PM CDT 650 mg albuterol sulfate 90 mcg/Actuation inhaler 2 Puff 2 Puff, Inhalation, EVERY 4 HOURS PRN RESPIRATORY, Starting on Sat05/18/25 at 1447, Until Sat05/26/25 at 1254, Shortness of Breath, home regimen with spacer, Routine cefTRIAXone (ROCEPHIN) 1,000 mg in sodium chloride 0.9% 50 mL IVPB (MBP) 1,000 mg, IV, EVERY 24 HOURS (DAILY), 5 doses, First dose on Sat05/18/25 at 0800, Last dose on Sat05/22/25 at 0900, Routine, Antibiotic Indication: Pneumonia - CAP w/MDR risk factors New Bag 05/22/2025 8:53 AM CDT 1,000 mg 118 mL /hr New Bag 05/21/2025 9:00 AM CDT 1,000 mg 118 mL/hr New Bag 05/20/2025 8:55 AM CDT 1,000 mg 118 mL/hr dextrose 50% (D50) syringe 25 Gram 25 Gram, IV, ONE TIME ONLY, 1 dose, On Sat04/25/25 at 0715, Routine Given 04/25/2025 7:21 AM CDT 25 Grams 999 mL/hr fentaNYL PF (SUBLIMAZE) 50 mcg/mL injection 50 mcg 50 mcg, IV, ONE TIME ONLY, 1 dose, On Sat04/25/25 at 0030, Stat Given 04/25/2025 12:55 AM CDT 100 mcg gabapentin (NEURONTIN) capsule 300 mg 300 mg, Oral, EVERY 12 HOURS (BlD), First dose on 05/19/25 at 0900, Until Discontinued, Routine Given 05/20/2025 8:48 AM CDT 300 mg Given 05/19/2025 8:30 PM CDT 300 mg Given 05/19/2025 10:22 AM CDT 300 mg gabapentin (NEURONTIN) capsule 300 mg 300 mg, Oral, EVERY 8 HOURS, First dose (after last modification) on Tatiana 05/20/25 at 2100, Until Discontinued, Routine Given 05/26/2025 5:25 AM CDT 300 mg Given 05/25/2025 9:11 PM CDT 300 mg Given 05/25/2025 12:44 PM CDT 300 mg heparin injection 5,000 Units 5,000 Units, subCUT, EVERY 8 HOURS, First dose on 04/24/25 at 2115, Until Discontinued, Routine Feeding Started 05/03/2025 4:44 AM CDT 5,000 Units Abdomen, Left Upper Quadrant Given 05/02/2025 9:24 PM CDT 5,000 Units A bdomen, Right Lower Quadrant Given 05/02/2025 12:46 PM CDT 5,000 Units Abdomen, Left Upper Quadrant hydrALAZINE (APRESOLINE) 20 mg/mL injection 10 mg 10 mg, IV, ONE TIME ONLY, 1 dose, On 04/24/25 at 2145, Stat Given 04/24/2025 9:45 PM CDT 10 mg hydrALAZINE (APRESOLINE) 20 mg/mL injection 10 mg 10 mg, IV, EVERY 6 HOURS PRN, Starting on 04/25/25 at 0055, Until 05/23/25 at 1141, Blood Pressure, SBP > 160, Routine Given 05/12/2025 8:29 AM CDT 10 mg HYDROcodone-acetaminophen (NORCO) 5-325 mg per tablet 1 Tablet 1 Tablet, Oral, EVERY 4 HOURS PRN, Starting on 04/24/25 at 1441, Until Sat05/26/25 at 1254, Pain, Moderate, Routine Given 05/26/2025 8:22 AM CDT 1 Tablet Given 05/25/2025 1:36 PM CDT 1 Tablet Given 05/25/2025 8:57 AM CDT 1 Tablet HYDROmorphone (PF) (DILAUDID) injection 0.5 mg 0.5 mg, IV, EVERY 3 HOURS PRN, Starting on 04/24/25 at 1441, Until 05/23/25 at 1141, Pain, Break-Through, Pain, Severe, Routine Given 05/14/2025 10:26 AM CDT 0.5 mg Given 05/03/2025 8:34 AM CDT 0.5 mg Given 05/02/2025 9:25 PM CDT 0.5 mg insulin regular (HumuLIN R,NovoLIN R) injection 8 Units 8 Units (rounded from 7.56 Units = 0.1 Units/kg 75.6 kg), IV, ONE TIME ONLY, 1 dose, On 04/25/25 at 0715, Stat Given 04/25/2025 7:21 AM CDT 8 Units labetaloL (NORMODYNE;TRANDATE) 5 mg/mL injection 10 mg 10 mg, IV, EVERY 4 HOURS PRN, Starting on 04/25/25 at 0132, Until Sat05/26/25 at 1254, Blood Pressure, SBP > 160, Routine Given 04/25/2025 1:33 AM CDT 10 mg lidocaine 2 % (XYLOCAINE) injection 15 mL 15 mL, Infiltration, ONE TIME ONLY, 1 dose, On Sat05/14/25 at 0815, Routine Given 05/14/2025 9:03 AM CDT 15 mL Lidocaine 4 % topical patch 1 Patch 1 Patch, Topical, DAILY, First dose on 05/15/25 at 1030, Until Discontinued, Routine Applied 05/26/2025 9:00 AM CDT 1 Patch Arm, Left Applied 05/16/2025 8:43 AM CDT 1 Patch Ba ck, Left Applied 05/15/2025 10:53 AM CDT 1 Patch B ack, Left lidocaine PF 1% (XYLOCAINE MPF) injection 30 mL 30 mL (300 mg), Infiltration, ONE TIME ONLY, 1 dose, On Tatiana 05/06/25 at 1045, Routine Admin by Another Clinician (Comment) 05/06/2025 10:38 AM CDT 30 mL lisinopriL (PRINIVIL) tablet 40 mg 40 mg, Oral, DAILY, First dose on 05/09/25 at 1745, Until Discontinued, Routine Given 05/23/2025 8:23 AM CDT 40 mg Given 05/22/2025 8:47 AM CDT 40 mg Given 05/21/2025 8:28 AM CDT 40 mg methocarbamoL (ROBAXIN) tablet 500 mg 500 mg, Oral, EVERY 6 HOURS, First dose on Sat05/14/25 at 1200, Until Discontinued, Routine Given 05/26/2025 5:25 AM CDT 500 mg Given 05/26/2025 12:20 AM CDT 500 mg Given 05/25/2025 5:26 PM CDT 500 mg morphine 4 mg/mL injection 4 mg 4 mg, IV, ONE TIME ONLY, 1 dose, On Sat05/14/25 at 0845, Routine Given 05/14/2025 8:44 AM CDT 3 mg naloxone (NARCAN) 0.4 mg/mL injection 0.1-0.4 mg 0.1-0.4 mg, IV, SEE ADMIN INSTRUCTIONS, Starting on Sat04/24/25 at 1441, Until Sat05/26/25 at 1254, Routine nicotine (NICODERM CQ) 7 mg/24 hr transdermal patch 1 Patch 1 Patch, Transdermal, DAILY, First dose (after last modification) on Sat04/24/25 at 1600, Until Discontinued, Routine Applied 05/26/2025 9:00 AM CDT 1 Patch Left Arm Applied 05/25/2025 8:49 AM CDT 1 Patch De ltoid, Right Applied 05/24/2025 8:20 AM CDT 1 Patch Ar m, Left Upper ondansetron (ZOFRAN ODT) tablet 4 mg 4 mg, Oral, EVERY 6 HOURS PRN, Starting on Sat04/24/25 at 1443, Until Sat05/26/25 at 1254, Nausea/Emesis, Routine Given 04/25/2025 7:31 AM CDT 4 mg Given 04/24/2025 11:18 PM CDT 4 mg sodium bicarbonate tablet 650 mg 650 mg, Oral, TWO TIMES DAILY, First dose on Sat04/27/25 at 0900, Until Discontinued, Routine Given 05/18/2025 8:17 AM CDT 650 mg Given 05/17/2025 8:06 PM CDT 650 mg Given 05/17/2025 8:41 AM CDT 650 mg sodium chloride 0.9 % bolus solution 500 mL 500 mL, IV, ONE TIME ONLY, 1 dose, On Sat04/25/25 at 1000, at 999 mL/hr, Administer over 30 Minutes, Stat New Bag 04/25/2025 10:17 AM CDT 500 mL 999 mL/hr sodium chloride 0.9 % infusion IV, at 75 mL/hr, CONTINUOUS, Starting on Sat05/24/25 at 0930, Until Sat05/26/25 at 0633, Routine New Bag 05/25/2025 12:23 AM CDT 75 mL/hr Rate Verify 05/25/2025 12:20 AM CDT 75 mL/hr Restarted 05/24/2025 5:47 PM CDT 75 mL/hr sodium chloride flush injection 10 mL 10 mL, IV, EVERY 12 HOURS (BlD), First dose on 04/24/25 at 1445, Until Discontinued, Routine Given 05/25/2025 9:11 PM CDT 10 mL Given 05/25/2025 9:06 AM CDT 10 mL Given 05/24/2025 8:21 AM CDT 10 mL sodium chloride flush injection 10 mL 10 mL, IV, SEE ADMIN INSTRUCTIONS, Starting on 04/24/25 at 1442, Until Sat05/26/25 at 1254, Routine Given 05/19/2025 10:23 AM CDT 10 mL Given 05/14/2025 8:43 AM CDT 10 mL Feeding Started 05/07/2025 9:04 PM CDT 10 mL sodium zirconium cyclosilicate (LOKELMA) oral powder packet 10 Gram 10 Gram, Oral, ONE TIME ONLY, 1 dose, On Sat04/25/25 at 0715, Routine Given 04/25/2025 7:40 AM CDT 10 Grams sodium zirconium cyclosilicate (LOKELMA) oral powder packet 10 Gram 10 Gram, Oral, ONE TIME ONLY, 1 dose, On Sat04/26/25 at 0700, Routine Given 04/26/2025 9:46 AM CDT 10 Grams sodium zirconium cyclosilicate (LOKELMA) oral powder packet 10 Gram 10 Gram, Oral, ONE TIME ONLY, 1 dose, On Sat05/24/25 at 0945, Stat Given 05/24/2025 10:43 AM CDT 10 Grams sodium zirconium cyclosilicate (LOKELMA) oral powder packet 10 Gram 10 Gram, Oral, ONE TIME ONLY, 1 dose, On Sat05/25/25 at 0730, Stat Given 05/25/2025 8:48 AM CDT 10 Grams umeclidinium (INCRUSE ELLIPTA) 62.5 mcg/actuation inhaler 1 Puff 1 Puff, Inhalation, DAILY RESPIRATORY, First dose on 04/25/25 at 0800, Until Discontinued, Routine Given 05/26/2025 8:22 AM CDT 1 Puff Given 05/25/2025 9:01 AM CDT 1 Puff Given 05/24/2025 8:20 AM CDT 1 Puff documented in this encounter Active and Recently Administered Medications Times are shown in CDT. Scheduled Medication Order 05/24/2025 05/25/2025 05/26/2025 acetaminophen (TYLENOL) tablet 650 mg 650 mg, Oral, EVERY 6 HOURS, First dose (after last modification) on 05/15/25 at 1200, Until Discontinued, Routine 0000 (Refused - Provider: Marisel Cole RN)0530 (Given - Provider: Marisel Cole RN)1227 (Given - Provider: Roseann Bustamante RN)180 (Given - Provider: Roseann Bustamante RN) 0010 (Given - Provider: Gilberto Miller RN)0522 (Given - Provider: Gilberto Miller RN)124 (Given - Provider: Margarito Garcia RN)172 (Given - Provider: Francisca Sandoval RN) 0020 (Given - Provider: Valeria Schulte, CATIE)0525 (Given - Provider: Valeria Schulte, CATIE) dextrose 5 % in water 250 mL flush bag 25 mL 25 mL, IV, SEE ADMIN INSTRUCTIONS, Starting on 04/24/25 at 1442, Until Sat05/26/25 at 1254, Routine gabapentin (NEURONTIN) capsule 300 mg 300 mg, Oral, EVERY 8 HOURS, First dose (after last modification) on Tatiana 05/20/25 at 2100, Until Discontinued, Routine 0530 (Given - Provider: Marisel Cole RN)1227 (Given - Provider: Roseann Bustamante RN)205 (Given - Provider: Gilberto Miller RN) 0522 (Given - Provider: Gilberto Miller RN)124 (Given - Provider: Margarito Garcia RN)211 (Given - Provider: Valeria Schulte RN) 0525 (Given - Provider: Valeria Schulte RN) heparin injection 5,000 Units 5,000 Units, subCUT, EVERY 8 HOURS, First dose on 04/24/25 at 2115, Until Discontinued, Routine 0500 (Refused - Provider: Marisel Cole RN)1226 (Refused - Provider: Roseann Bustamante RN)2100 (Refused - Provider: Gilberto Miller RN) 0500 (Refused - Provider: Gilberto Miller RN)1300 (Refused - Provider: Margarito Garcia RN)2100 (Refused - Provider: Valeria Schulte, CATIE) 0404 (Refused - Provider: Valeria Schulte RN) Lidocaine 4 % topical patch 1 Patch 1 Patch, Topical, DAILY, First dose on 05/15/25 at 1030, Until Discontinued, Routine 0900 (Refused - Provider: Roseann Bustamante RN) 0900 (Refused - Provider: Margarito Garcia RN) 0900 (Applied - Provider: Bhavana Cotter RN)1049 (Due: Removed - Provider: PROVIDER, DISCHARGE PATIENT - Comment: Time automatically adjusted from order being discontinued) methocarbamoL (ROBAXIN) tablet 500 mg 500 mg, Oral, EVERY 6 HOURS, First dose on Sat05/14/25 at 1200, Until Discontinued, Routine 0000 (Refused - Provider: Marisel Cole RN)0530 (Given - Provider: Marisel Cole RN)1227 (Given - Provider: Roseann Bustamante RN)1806 (Given - Provider: Roseann Bustamante RN) 0011 (Given - Provider: Gilberto Miller RN)0523 (Given - Provider: Gilberto Miller RN)1241 (Given - Provider: Margarito Garcia RN)1726 (Given - Provider: Francisca Sandoval RN) 0020 (Given - Provider: Valeria Schulte, CATIE)0525 (Given - Provider: Valeria Schulte RN) naloxone (NARCAN) 0.4 mg/mL injection 0.1-0.4 mg 0.1-0.4 mg, IV, SEE ADMIN INSTRUCTIONS, Starting on 04/24/25 at 1441, Until Sat05/26/25 at 1254, Routine nicotine (NICODERM CQ) 7 mg/24 hr transdermal patch 1 Patch 1 Patch, Transdermal, DAILY, First dose (after last modification) on 04/24/25 at 1600, Until Discontinued, Routine 0820 (Applied - Provider: Roseann Bustamante RN)0826 (Removed - Provider: Roesann Bustamante RN) 0848 (Removed - Provider: Margarito Garcia RN)0849 (Applied - Provider: Margarito Garcia RN) 0849 (Removed - Provider: Bhavana Cotter, CATIE)0900 (Applied - Provider: Bhavana Cotter, CATIE)1049 (Due: Removed - Provider: PROVIDER, DISCHARGE PATIENT - Comment: Time automatically adjusted from order being discontinued) sodium chloride 0.9 % flush bag 25 mL 25 mL, IV, SEE ADMIN INSTRUCTIONS, Starting on 04/24/25 at 1442, Until 05/26/25 at 1254, Routine sodium chloride flush injection 10 mL 10 mL, IV, EVERY 12 HOURS (BlD), First dose on 04/24/25 at 1445, Until Discontinued, Routine 0821 (Given - Provider: Roseann Bustamante RN)2100 (Not Given - Provider: Gilberto Miller RN - Reason: Other - See Comment - Comment: Line infusing) 0906 (Given - Provider: Margarito Garcia RN)2111 (Given - Provider: Valeria Schulte RN) 0900 (Canceled Entry - Provider: Bhavana Cotter RN) sodium chloride flush injection 10 mL 10 mL, IV, SEE ADMIN INSTRUCTIONS, Starting on 04/24/25 at 1442, Until 05/26/25 at 1254, Routine sodium zirconium cyclosilicate (LOKELMA) oral powder packet 10 Gram (COMPLETED) 10 Gram, Oral, ONE TIME ONLY, 1 dose, On 05/24/25 at 0945, Stat 1043 (Given - Provider: Roseann Bustamante RN) sodium zirconium cyclosilicate (LOKELMA) oral powder packet 10 Gram (COMPLETED) 10 Gram, Oral, ONE TIME ONLY, 1 dose, On Tu05/25/25 at 0730, Stat 0848 (Given - Provider: Margarito Garcia RN) umeclidinium (INCRUSE ELLIPTA) 62.5 mcg/actuation inhaler 1 Puff 1 Puff, Inhalation, DAILY RESPIRATORY, First dose on 04/25/25 at 0800, Until Discontinued, Routine 0820 (Given - Provider: Roseann Bustamante RN) 0901 (Given - Provider: Margarito Garcia RN) 0822 (Given - Provider: Bhavana Cotter, CATIE) Continuous Medication Order 05/24/2025 05/25/2025 05/26/2025 sodium chloride 0.9 % infusion (CANCELED) IV, at 75 mL/hr, CONTINUOUS, Starting on 05/24/25 at 0930, Until Sat05/26/25 at 0633, Routine 1001 (New Bag - Provider: Roseann Bustamante RN)1702 (Paused - Provider: Francisca Sandoval RN)1708 (Restarted - Provider: Francisca Sandoval RN)1724 (Paused - Provider: Francisca Sandoval RN)1732 (Restarted - Provider: Francisca Sandoval RN)1743 (Paused - Provider: Francisca Sandoval RN)1746 (Paused - Provider: Francisca Sandoval RN)1747 (Restarted - Provider: Francisca Sandoval RN) 0020 (Rate Verify - Provider: Francisca Sandoval RN)0023 (New Bag - Provider: Gilberto Miller RN)0907 (Stopped - Provider: Francisca Sandoval RN)0929 (Stopped - Provider: Margarito Garcia RN - Comment: [Order ends at this time. Document the following action when infusion is complete: Stopped]) PRN Medication Order 05/24/2025 05/25/2025 05/26/2025 albuterol sulfate 90 mcg/Actuation inhaler 2 Puff 2 Puff, Inhalation, EVERY 4 HOURS PRN RESPIRATORY, Starting on Tu05/18/25 at 1447, Until Sat05/26/25 at 1254, Shortness of Breath, home regimen with spacer, Routine HYDROcodone-acetaminophen (NORCO) 5-325 mg per tablet 1 Tablet 1 Tablet, Oral, EVERY 4 HOURS PRN, Starting on 04/24/25 at 1441, Until Sat05/26/25 at 1254, Pain, Moderate, Routine 0857 (Given - Provider: Margarito Garcia RN)1336 (Given - Provider: Francisca Sandoval RN) 0822 (Given - Provider: Bhavana Cotter, CATIE) labetaloL (NORMODYNE;TRANDATE) 5 mg/mL injection 10 mg 10 mg, IV, EVERY 4 HOURS PRN, Starting on 04/25/25 at 0132, Until Sat05/26/25 at 1254, Blood Pressure, SBP > 160, Routine ondansetron (ZOFRAN ODT) tablet 4 mg 4 mg, Oral, EVERY 6 HOURS PRN, Starting on 04/24/25 at 1443, Until Sat05/26/25 at 1254, Nausea/Emesis, Routine documented in this encounter
--- OUTSIDE RECORDS SUMMARY | 2025-05-29 08:24 | XMS_ITS | Encounter Summary ---
Author Organization [facility], [facility] Address [address] [address] Phone Care Team Providers Care Nickel Plater Name Role Phone Rocky Fuentes Primary Care Provider [phone] Reason for Referral * Consultation (Routine) - Closed Specialty Diagnoses / Procedures Referred By Contac t Referred To Contact Nephrology Diagnoses Hypertensive chronic kidney disease, benign, with chronic kidney disease stage I through stage IV, or unspecified Chronic kidney disease, stage 4 (severe) (HCC) Rocky Fuentes [address] [place] [address] Phone: tel: fax: Jenny Russ MD [address] [address] Phone: tel: fax: Referral ID Status Reason Start Date Expiration Date V isits Requested Visits Authorized [id number] Closed Consult and Treat 02/25/2025 02/25/2026 1 1 Encounter Details Date Type Department Care Team (Late st Contact Info) Description 02/25/2025 Transcribe Orders [facility], [facility] [address] [address] Rocky Fuentes [address] [place] [address] [address] [place] [address] Chronic kidney disease, stage 4 [...] Care Team (Late st Contact Info) Description 08/31/2025 2:30 PM METALWORKING SPECIALIST Office Visit [facility], [facility] [address] [place] [phone] Genevieve Foy, SSAS DEVELOPER [address] [facility] [address] [place] [phone] Scheduled Referrals Name Type Priority Associated Diagnoses [...] unspecified documented in this encounter Care Teams Nickel Plater Relationship Specialty Start Date End Date Rocky Fuentes [address] [place] [address] [address] [place] [address] PCP - General 02/25/25 documented as of this encounter
--- OUTSIDE RECORDS SUMMARY | 2025-05-29 08:25 | XMS_ITS | Encounter Summary ---
Author Organization [facility], [facility] Address [address] [facility] [address] [place] [address] Phone Care Team Providers Care Customer Pricing Manager Name Role Phone Rocky Fuentes Primary Care Provider [phone] Encounter Details Date Type Department Care Team ([facility] st Contact Info) Description 05/27/2025 Telephone [facility], [facility] [address] [facility] [address] [place] [address] Jenny Russ MD [address] [facility] [address] [facility] [address] [place] [address] Social History Tobacco Use Types Packs/Day Years Used Date Smoking Tobacco: Never Assessed Sex and Gender Information Value Date Recorded Sex Assigned at Not on file Legal Sex Male 11:26 AM EDT Gender Identity Not on file Sexual Orientation Not on file documented as of this encounter Miscellaneous Notes * Telephone Encounter - Oziel Rowe - 05/28/2025 8:39 AM CDT Noted * Telephone Encounter - Aurora Ventura - 05/27/2025 12:27 PM CDT Spoke with pt about getting scheduled for HFU. Got pt scheduled to 08/31 with Genevieve in [place]. Mailed apptreminder, labs, map to address on file. * Telephone Encounter - Renetta Renae - 05/27/2025 9:47 AM CDT Hospital Follow Up: Crispin Yan was admitted at [facility] and will need follow up with our office. Follow up Labs: N/A Follow Up Appointment: 3 months in [facility] Prior to appointment Labs: renal function panel, urine protein/creatinine ratio , CBC with diff, and PTH Thanks Renetta Renae [facility] * Telephone Encounter - Renetta Renae - 05/27/2025 9:43 AM CDT Patient: Crispin Yan : 1965 [facility]: Hospital Chart Number: Hospital: [facility] IP Room: 6163-1 Attending Provider: Referring Provider: Admit Date: 04/24/2025 Consult Date: 04/25/2025 Discharge Date: 04/29/2025 Disposition: Discharge Comment: Discharged by: Liset William on 04/29/2025 Follow-up: Yes Follow-up Timin months Follow-up Provider: Follow-up Location: [facility] Follow-up Notes/Orders/Labs: rfp cbc pth upc documented in this encounter Plan of Treatment Upcoming Encounters Date Type Department Care Team (Late st Contact Info) Description 08/31/2025 2:30 PM SHIP STEWARD Office Visit [facility] [address] [place] [phone] Genevieve Foy NP [address] [facility] [address] [place] [address] Scheduled Orders Name Type Priority Associated Diagnoses Orde r Schedule Renal function panel Lab Routine Chronic kidney disease stage 4 (HCC) Expected: 05/27/2025, Expires: 06/27/2026 CBC and differential Lab Routine Chronic kidney disease stage 4 (HCC) Expected: 05/27/2025, Expires: 06/27/2026 PTH, intact Lab Routine Chronic kidney disease stage 4 (HCC) Expected: 05/27/2025, Expires: 06/27/2026 Protein / creatinine ratio, urine Lab Routine Chronic kidney disease stage 4 (HCC) Expected: 05/27/2025, Expires: 06/27/2026 documented as of this encounter Visit Diagnoses Diagnosis Chronic kidney disease stage 4 (HCC)- Primary documented in this encounter Care Teams Customer Pricing Manager Relationship Specialty Start Date End Date Rocky Fuentes [address] [place] [address] [address] [place] [address] PCP - General 02/25/25 documented as of this encounter
--- OUTSIDE RECORDS SUMMARY | 2025-05-29 08:25 | XMS_ITS | Encounter Summary ---
Author Organization [facility], [facility] Address [address] [facility] [address] [place] [address] Phone Care Team Providers Care Color Making Supervisor Name Role Phone Rocky Fuentes Primary Care Provider Encounter Details Date Type Department Care Team (Late st Contact Info) Description 02/26/2025 Orders Only [facility], [facility] [address] [facility] [address] [place] [address] Hypertensive chronic kidney disease, benign, [...] st Contact Info) Description 08/31/2025 2:30 PM MANAGER BRANCH Office Visit [facility], [facility] [address] [place] [address] Genevieve Foy NP [address] [place] [address] documented as of this encounter Visit Diagnoses Diagnosis Hypertensive chronic kidney disease, benign, with chronic kidney disease stage I through stage IV, or unspecified Chronic kidney disease, stage 4 (severe) (HCC) documented in this encounter Care Teams Color Making Supervisor Relationship Specialty Start Date End Date Rocky Fuentes [address] [place] [address] [address] [place] [address] PCP - General 02/25/25 documented as of this encounter
--- OUTSIDE RECORDS SUMMARY | 2025-05-29 08:25 | XMS_ITS | Encounter Summary ---
Author Organization [facility] Address 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 [address] Puma Atkins MD [address] [address] 06/03/2025 10:30 AM CDT Office Visit [facility] Cardiothoracic Surgery [facility] [address] [address] documented as of this encounter Visit Diagnoses Not on filedocumented in this encounter
--- OUTSIDE RECORDS SUMMARY | 2025-05-29 08:25 | XMS_ITS | Encounter Summary ---
Author Organization [facility] Address 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 [address] Puma Atkins MD [address] [address] 06/03/2025 10:30 AM CDT Office Visit [facility] Cardioth[facility] [address] [phone] Scheduled Orders Name Type Priority Associated Diagnoses Orde r Schedule XR CHEST PA AND LATERAL 2 VW Imaging Routine Secondary spontaneous pneumothorax 1 Occurrences starting 05/26/2025 until 05/26/2026 documented as of this encounter Visit Diagnoses Diagnosis Secondary spontaneous pneumothorax- Primary documented in this encounter
--- OUTSIDE RECORDS SUMMARY | 2025-05-29 08:26 | XMS_ITS | Encounter Summary ---
Author Organization [facility] Address [address] [place] [address] Care Team Providers Care Stroke Program Coordinator Name Role Phone Unavailable Primary Care Provider Unavailabl e Encounter Details Date Type Department Care Team (Late Contact Info) Description 05/28/[address] [facility] [address] 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 [address] Puma Atkins MD [address] [address] 06/03/2025 10:30 AM CDT Office Visit [facility] Cardiothoracic Surgery [facility] [address] [address] documented as of this encounter Procedures Procedure Name Priority Date/Time Associated Diagnosis Comments COMPREHENSIVE METABOLIC PANEL Routine 04/24/2025 3:46 PM CDT documented in this encounter Results * COMPREHENSIVE METABOLIC PANEL (04/24/2025 3:46 PM CDT) Blood us Abstract Provider CHEMISTRY ORDERABLES Final Res ult documented in this encounter Visit Diagnoses Not on filedocumented in this encounter
--- OUTSIDE RECORDS SUMMARY | 2025-05-29 08:26 | XMS_ITS | Encounter Summary ---
Author Organization [facility] Address [address] [place] [address] Care Team Providers Care Shoe Parts Caser Name Role Phone Unavailable Primary Care Provider [...] on file Legal Sex Male 1:23 AM MANAGER IMPLEMENTATION Gender Identity Not on file Sexual Orientation Not on file documented as of this encounter Plan of Treatment Upcoming Encounters Date Type Department Care Team (Late st Contact Info) Description 06/03/2025 9:00 AM CDT Appointment [facility] Imaging Services [address] [place] [address] Puma Atkins MD [address] [address] 06/03/2025 10:30 AM CDT Office Visit [facility] Cardiothoracic Surgery [facility] [address] [address] documented as of this encounter Visit Diagnoses Not on filedocumented in this encounter
--- OUTSIDE RECORDS SUMMARY | 2025-05-29 08:26 | XMS_ITS | Encounter Summary ---
Author Organization [facility] Address [address] [place] [address] Care Team Providers Care Research Associate Molecular Biology Name Role Phone Unavailable Primary Care Provider Unavailabl e Reason for Visit * Reason Onset Date Comments Appointment Correction 05/28/2025 Encounter Details Date Type Department Care Team (Late st Contact Info) Description 05/28/2025 Telephone [facility] Cardiothoracic Surgery [facility] [address] [address] Mitchell Muhammad Appointment Correction Social History Tobacco Use Types Packs/Day Years [...] on file Legal Sex Male 1:23 AM TESTING AND REGULATING CHIEF Gender Identity Not on file Sexual Orientation Not on file documented as of this encounter Miscellaneous Notes * Telephone Encounter - Mitchell Muhammad - 05/28/2025 10:13 AM CDT Called patietn to give f/u appt info, no answer,left message to call back documented in this encounter Plan of Treatment Upcoming Encounters Date Type Department Care Team (Late st Contact Info) Description 06/03/2025 9:00 AM CDT Appointment [facility] Imaging Services [address] [place] [phone] Puma Atkins MD [address] [address] 06/03/2025 10:30 AM CDT Office Visit [facility] Cardiothoracic Surgery [facility] [address] [address] documented as of this encounter Visit Diagnoses Not on filedocumented in this encounter
--- OUTSIDE RECORDS SUMMARY | 2025-05-29 08:26 | XMS_ITS | Clinical Summary ---
Author Organization [facility] Address [address] [address] Care Team Providers Care Soil Field Technician Name Role Phone Rocky Fuentes Primary Care Provider [phone] Encounters * This document contains information received from the source organization and may not represent a complete record from that organization. Date Type Department Care Team Description 05/27/2025 Telephone [facility], [facility] [address] [place] [address] Jenny Russ MD 03/12/2025 Office Communication [facility], [place] [address] [place] [address] Jenny Russ MD 02/26/2025 Orders Only [facility], [place] [address] [place] [address] Hypertensive chronic kidney disease, benign, with chronic kidney disease stage I through stage IV, or unspecified; Chronic kidney disease, stage 4 (severe) (HCC) from Last 3 Months Social History Tobacco [...] st Contact Info) Description 08/31/2025 2:30 PM HOT DIPPER Office Visit [facility], [facility] [address] [place] [address] Genevieve Foy NP [address] [place] [address] Health Maintenance Due Date Last Done Comments Hepatitis B Vaccine (1 of 3 - 19+ 3-dose series) 02/09 Pneumococcal Vaccine: 50+ Years (1 of 2 - PCV) 986 Colorectal Cancer Screening: Annual FOBT 02/10/2016 Colorectal Cancer Screening: Colonoscopy 02/10/2016 Colorectal Cancer Screening: Sigmoidoscopy 02/10/2016 Influenza Vaccine (#1) 2025 Insurance Medicaid [place] ([id number]) Care Teams Soil Field Technician Relationship Specialty Start Date End Date Rocky Fuentes [address] [place] [address] [address] [place] [address] PCP - General 02/25/25
--- OUTSIDE RECORDS SUMMARY | 2025-05-29 08:26 | XMS_ITS | Clinical Summary ---
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 05/11/20 25 Active nicotine (NICODERM CQ) 7 mg/24 hr patch Apply 1 Patch to skin as directed daily. 05/11/20 25 Active albuterol sulfate HFA 90 mcg/actuation aerosol inhaler Take 2 Puffs by inhalation every 6 hours as needed for Shortness of Breath (home regimen with spacer). 05/10/20 25 Active gabapentin (NEURONTIN) 300 mg capsule Take 1 Capsule (300 mg) by mouth every 8 hours. 90 Capsule 05/26/20 25 Active amLODIPine (NORVASC) 5 mg tablet Take 1 Tablet (5 mg) by mouth daily. 30 Tablet 05/26/20 Active lisinopriL (PRINIVIL) 40 mg tablet Take 40 mg by mouth daily. Discontinued dapagliflozin propanediol (Farxiga) 5 mg Tablet Take 5 mg by mouth daily. Discontinued sodium bicarbonate 650 mg tablet Take 1 Tablet (650 mg) by mouth 2 times daily. 05/10/20 25 025 Discontinued Active Problems Problem Noted Date Diagnosed Date Hypertension, essential 05/09/2025 Moderate protein-calorie malnutrition 05/03/2025 Chronic kidney disease, stage IV (severe) 2024 Acute respiratory failure with hypoxia Secondary spontaneous pneumothorax 04/24/2025 Cigarette smoker 04/24/2025 Elevated serum creatinine 04/24/2025 Hyperkalemia 04/24/2025 Encounters Date Type Department Care Team Description 05/28/2025 Orders Only [facility] HIM [address] [place] [phone] Provider, Abstract 05/28/2025 Telephone [facility] [address] [phone] [place], [place] Needs Appointment 05/28/2025 Telephone [facility] [address] [place]ae [address] [place] [phone] Mitchell Muhammad Appointment Correction 05/26/2025 Orders Only [facility] [address] [address] Puma Atkins MD Secondary spontaneous pneumothorax (Primary Dx) 05/25/2025 External Device Data STL ABSTRACTION Provider, Abstract 05/25/2025 External Device Data STL ABSTRACTION Provider, Abstract 05/04/2025 12:17 PM CDT Anesthesia Event [facility] Endoscopy [address] [place] [phone] Ha Blancas MD 05/04/2025 10:56 AM CDT - 05/04/2025 11:28 AM CDT Surgery [facility] [address] [place] [phone] Brayden Trammell MD BRONCHOSCOPY 04/30/2025 Chart Note [facility] Pulmonology [address] [place] [phone] Brayden Trammell MD 04/27/2025 External Device Data STL ABSTRACTION Provider, Abstract 04/27/2025 External Device Data STL ABSTRACTION Provider, Abstract 04/27/2025 External Device Data STL ABSTRACTION Provider, Abstract 04/24/2025 1:46 PM CDT - 05/26/2025 10:49 AM CDT Hospital Encounter [facility] 4D Surgery Heart Lung [address] 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 Gender Identity Not on file Sexual Orientation Not on file Last Filed Vital Signs Vital Sign Reading [...] Mass Index 22.91 04/24/2025 3:22 PM CDT Plan of Treatment Upcoming Encounters Date Type Department Care Team (Late st Contact Info) Description 06/03/2025 9:00 AM CDT Appointment [facility] Services [address] [place] [address] Puma Atkins MD [address] [phone] 06/03/2025 10:30 AM CDT Office Visit [facility] Cardiothoracic Surgery [facility] [address] [phone] Health Maintenance Due Date Last Done Comments DTAP/TDAP/TD VACCINES (1 - Tdap) 1986 HEPATITIS B VACCINES (1 of 3 - 19+ 3-dose series) 01/24 Preventative Visit-Managed Medicaid 1986 COLORECTAL SCREENING 02/10/2012 Colorectal Cancer Screening 02/10/2012 FIT-DNA Q 3 years 02/10/2012 FIT/FOBT Q 1 year 02/10/2012 Flex Sig/CT Colonography Q 5 years 02/10/2012 Lung Cancer Screening 2017 ZOSTER VACCINE (1 of 2) 2017 INFLUENZA VACCINE (#1) 2025 Medical Devices Implanted Type Area Bods Developer Device Identifier Shelf Expiration Date Model / Serial / Lot Resolve Drainage Catheter-2024 Implanted:Qty: 1 on 05/06/2025 by Darin Lucero PA-C Catheter Left: Chest 08/24/2027 [facility]-[id number] / / [id number] Description:Lt chest tube Procedures Procedure Name Priority Date/Time Associated Diagnosis Comments TELEMETRY REPORT 05/27/2025 2:40 AM CDT XR CHEST PA OR AP 1 VW Routine 05/26/2025 5:29 AM CDT BASIC METABOLIC PANEL Routine 05/26/2025 4:00 AM CDT POTASSIUM LEVEL Timed Study 05/25/2025 1:34 PM CDT XR CHEST PA OR AP 1 VW Timed Study 05/25/2025 11:49 AM CDT BASIC METABOLIC PANEL Routine 05/25/2025 5:38 AM CDT CBC WITHOUT DIFFERENTIAL Routine 05/25/2025 5:38 AM CDT XR CHEST [...] 1 VW Routine 05/20/2025 5:18 AM CDT RENAL FUNCTION PANEL Routine 05/20/2025 12:49 AM CDT CBC WITH DIFFERENTIAL Routine 05/20/2025 12:49 AM CDT XR CHEST PA OR AP 1 VW Routine 05/19/2025 4:58 AM CDT RENAL FUNCTION PANEL Routine 05/19/2025 1:47 AM CDT CBC WITH DIFFERENTIAL Routine 05/19/2025 1:47 AM CDT MRSA PCR RAPID SCREEN Routine 05/18/2025 5:50 PM CDT XR CHEST PA OR AP 1 VW Stat 05/18/2025 8:13 AM CDT RT ASSESS AND TREAT Routine 05/18/2025 7 :48 AM CDT RENAL FUNCTION PANEL Routine 05/18/2025 4:54 AM CDT CBC WITH DIFFERENTIAL Routine 05/18/2025 4:54 AM CDT XR CHEST PA OR AP 1 VW Pending Discharge 05/18/2025 4:36 AM CDT RENAL FUNCTION PANEL Routine 05/17/2025 11:11 PM CDT CBC WITH DIFFERENTIAL Routine 05/17/2025 11:11 PM CDT EKG 12-LEAD Stat 05/17/2025 12:53 PM CDT XR CHEST PA OR AP 1 VW Routine 05/17/2025 5:26 AM CDT XR CHEST PA OR AP 1 VW Routine 05/16/2025 6:03 AM CDT BASIC METABOLIC PANEL Routine 05/16/2025 5:00 AM CDT CBC WITH DIFFERENTIAL Routine 05/16/2025 5:00 AM CDT XR CHEST [...] 1 VW Routine 05/13/2025 4:44 AM CDT BASIC METABOLIC PANEL Routine 05/13/2025 1:10 AM CDT CBC WITH DIFFERENTIAL Routine 05/13/2025 1:10 AM CDT XR CHEST [...] PLACEMENT Routine 05/06/2025 10: 45 AM CDT PROTIME-INR Stat 05/06/2025 7:39 AM CDT CBC WITH DIFFERENTIAL Stat 05/06/2025 7:39 AM CDT MAGNESIUM LEVEL Stat 05/06/2025 7:39 AM CDT BASIC METABOLIC PANEL Stat 05/06/2025 7:39 AM CDT XR CHEST PA OR AP 1 VW Routine 05/05/2025 8:58 AM CDT BASIC METABOLIC PANEL Routine 05/05/2025 4:49 AM CDT CBC WITHOUT DIFFERENTIAL Routine 05/05/2025 4:49 AM CDT XR CHEST PA OR AP 1 VW Stat 05/04/2025 1:21 PM CDT VA ANES INSERT ENDOTRACHEAL AIRWAY Routine 05/04/2025 12:24 PM CDT BRONCHOSCOPY 05/04/2025 10:56 AM CDT [...] 1 VW Routine 04/28/2025 5:23 AM CDT COMPREHENSIVE METABOLIC PANEL Routine 04/28/2025 5:20 AM CDT CBC WITH DIFFERENTIAL Routine 04/28/2025 5:20 AM CDT PTH INTACT Routine 04/27/2025 6:21 AM CDT XR CHEST PA OR AP 1 VW Pending Discharge 04/27/2025 4:25 AM CDT COMPREHENSIVE METABOLIC PANEL Routine 04/27/2025 4:14 AM CDT CBC WITH DIFFERENTIAL Routine 04/27/2025 4:14 AM CDT EXTRA TUBE (URINE ROSAS) Routine 04/26/2025 11:40 AM CDT URINALYSIS W/REFLEX MICROSCOPIC Routine 04/26/2025 11:40 AM CDT BLOOD CULTURE Routine 04/26/2025 9:10 AM CDT BLOOD CULTURE Routine 04/26/2025 9:10 AM CDT VITAMIN D 25 HYDROXY Routine 04/26/2025 9:04 AM CDT BLOOD CULTURE Routine 04/26/2025 9:04 AM CDT BLOOD CULTURE [...] POC GLUCOSE Routine 04/25/2025 7:21 AM CDT COMPREHENSIVE METABOLIC PANEL Routine 04/25/2025 5:27 AM CDT CBC WITH DIFFERENTIAL Routine 04/25/2025 5:27 AM CDT TROPONIN 6 HR, 5TH GEN Timed Study 04/25/2025 5:27 AM CDT XR CHEST PA [...] POC GLUCOSE Routine 04/24/2025 9:25 PM CDT COMPREHENSIVE METABOLIC PANEL Routine 04/24/2025 3:46 PM CDT XR CHEST PA OR AP 1 VW Stat 04/24/2025 3:00 PM CDT RT ASSESS AND TREAT Routine 04/24/2025 2 :44 PM CDT PROTIME-INR Routine 04/24/2025 2:13 PM CDT CBC WITHOUT DIFFERENTIAL Routine 04/24/2025 2:13 PM CDT COMPREHENSIVE METABOLIC PANEL Routine 04/24/2025 2:13 PM CDT from Last 3 Months Results * TELEMETRY REPORT (05/27/2025 2:40 AM CDT) us Provider Scanning ECG ORDERABLES Final Result * XR CHEST PA OR AP 1 VW (05/26/2025 5:29 AM CDT) Only the most recent of47 resultswithin the time period is included. Anatomical Region Laterality Modality Chest Computed Radiogr [...] BASIC METABOLIC PANEL (05/26/2025 4:00 AM CDT) Only the most recent of12 resultswithin the time period is included. SODIUM 136 136 - 145 mmol/L 05/26/2025 4:53 AM [facility] POTASSIUM 5.1 3.5 - 5.1 mmol/L 05/26/2025 4:53 AM [facility] CHLORIDE 105 98 - 107 mmol/L 05/26/2025 4:53 AM [facility] CO2 20(L) 22 - 29 mmol/L 05/26/2025 4:53 AM [facility] CALCIUM 8.9 8.6 - 10.0 mg/dL 05/26/2025 4:53 AM [facility] BUN 36(H) 6 - 20 mg/dL 05/26/2025 4:53 AM [facility] CREATININE 1.88(H) 0.67 - 1.17 mg/dL 05/26/2025 4:53 AM [facility] GLUCOSE 103(H) 74 - 99 mg/dL 05/26/2025 4:53 AM [facility] GFR 41(L) >=60 mL/min/1. 73 sq meter 05/26/2025 4:53 AM [facility] Comment:eGFR calculated with 2020 CKD-EPI equation. Vegetarian diet, extremely high or low muscle mass, and may affect results. Cystatin C with Glomerular Filtration Rate is a suitable alternative for these patients. ANION GAP 11 9 - 20 mmol/L 05/26/2025 4:53 AM [facility] Blood Venipuncture / Unknown 05/26/2025 4:00 AM CDT 05/26/2025 4:22 AM CDT Marie Eduardo MD CHEMISTRY ORDERABLES Final Res ult Performing Organization Address [facility] de Phone Number [facility] CLIA # [id number] [facility] [address] [id number] * POTASSIUM LEVEL (05/25/2025 1:34 PM CDT) Only the most recent of2 resultswithin the time period is included. Pathologist [facility] POTASSIUM 4.8 3.5 - 5.1 mmol/L 05/25/2025 2:13 PM CDT [facility] Blood Venipuncture / Unknown 05/25/2025 1:34 PM CDT 05/25/2025 1:40 PM CDT Marie Eduardo MD CHEMISTRY ORDERABLES Final Res ult Performing Organization Address [facility] Co de Phone Number [facility] CLIA # [id number] [facility] [address] * (ABNORMAL) CBC WITHOUT DIFFERENTIAL (05/25/2025 5:38 AM CDT) Only the most recent of4 resultswithin the time period is included. Pathologist [facility] WBC 9.6 4.8 - 10.8 K/uL 05/25/2025 6:10 AM CDT [facility] RBC 3.92(L) 4.60 - 6.20 M/uL 05/25/2025 6:10 AM T [facility] HEMOGLOBIN 11.7(L) 14.0 - 18.0 g/dL 05/25/2025 6:10 AM T [facility] HEMATOCRIT 35.1(L) 41.0 - 53.0 % 05/25/2025 6:10 AM T [facility] MCV 89.5 84.0 - 103.0 fL 05/25/2025 6:10 AM T [facility] MCH 29.8 27.0 - 34.0 pg 05/25/2025 6:10 AM CDT [facility] MCHC 33.3 30.0 - 35.0 g/dL 05/25/2025 6:10 AM CDT [facility] PLATELETS 541(H) 140 - 440 K/uL 05/25/2025 6:10 AM CDT [facility] MPV 9.1 8.9 - 12.8 fL 05/25/2025 6:10 AM CDT [facility] RDW 14.5 11.0 - 14.5 % 05/25/2025 6:10 AM T [facility] RDW-STDEV 47.8 37.0 - 54.0 fL 05/25/2025 6:10 AM T [facility] Blood Venipuncture / Unknown 05/25/2025 5:38 AM CDT 05/25/2025 6:01 AM CDT us Marie Eduardo MD HEMATOLOGY ORDERABLES Final Re sult [facility] CLIA # [id number] [address] [place] [id number] * (ABNORMAL) CBC WITH DIFFERENTIAL (05/22/2025 9:40 AM CDT) Only the most recent of13 resultswithin the time period is included. Pathologist [facility] WBC 12.9(H) 4.8 - 10.8 K/uL 05/22/2025 9:53 AM T [facility] RBC 3.93(L) 4.60 - 6.20 M/uL 05/22/2025 9:53 AM CDT [facility] HEMOGLOBIN 11.7(L) 14.0 - 18.0 g/dL 05/22/2025 9:53 AM T [facility] HEMATOCRIT 35.8(L) 41.0 - 53.0 % 05/22/2025 9:53 AM [facility] MCV 91.1 84.0 - 103.0 fL 05/22/2025 9:53 AM [facility] MCH 29.8 27.0 - 34.0 pg 05/22/2025 9:53 AM [facility] MCHC 32.7 30.0 - 35.0 g/dL 05/22/2025 9:53 AM [facility] PLATELETS 464(H) 140 - 440 K/uL 05/22/2025 9:53 AM [facility] MPV 9.1 8.9 - 12.8 fL 05/22/2025 9:53 AM [facility] RDW 14.6(H) 11.0 - 14.5 % 05/22/2025 9:53 AM [facility] RDW-STDEV 48.8 37.0 - 54.0 fL 05/22/2025 9:53 AM [facility] NEUTROPHILS 59 42 - 75 % 05/22/2025 9:53 AM [facility] LYMPHOCYTES 16(L) 24 - 44 % 05/22/2025 9:53 AM [facility] MONOCYTES 15(H) 2 - 10 % 05/22/2025 9:53 AM [facility] EOSINOPHILS 9(H) 0 - 7 % 05/22/2025 9:53 AM [facility] BASOPHILS 1 0 - 1 % 05/22/2025 9:53 AM [facility] IMMATURE GRANULOCYTES 0 0 - 2 % 05/22/2025 9:53 AM [facility] NEUTROPHIL ABSOLUTE 7.69 2.00 - 8.00 K/uL 05/22/2025 9:53 AM [facility] LYMPHOCYTE ABSOLUTE 2.05 1.20 - 4.00 K/uL 05/22/2025 9:53 AM [facility] MONOCYTE ABSOLUTE 1.88(H) 0.10 - 0.60 K/uL 05/22/2025 9:53 AM [facility] EOSINOPHIL ABSOLUTE 1.17(H) 0.00 - 0.70 K/uL 05/22/2025 9:53 AM CDT [facility] BASOPHILS ABSOLUTE 0.08 0.00 - 0.20 K/uL 05/22/2025 9:53 AM CDT [facility] IMMATURE GRANULOCYTES ABSOLUTE 0.05 0.00 - 0.10 K/uL 05/22/2025 9:53 AM T [facility] SMEAR REVIEWED: NA - Not Applicable 05/22/2025 9:53 AM T [facility] Blood Venipuncture / Unknown 05/22/2025 9:40 AM CDT 05/22/2025 9:50 AM CDT us Roel Andujar MD HEMATOLOGY ORDERABLES Final Res ult [facility] # [id number] [address] [place] [address] * (ABNORMAL) RENAL FUNCTION PANEL (05/20/2025 12:49 AM CDT) Only the most recent of4 resultswithin the time period is included. SODIUM 135(L) 136 - 145 mmol/L 05/20/2025 2:14 AM [facility] POTASSIUM 4.6 3.5 - 5.1 mmol/L 05/20/2025 2:14 AM T [facility] CHLORIDE 103 98 - 107 mmol/L 05/20/2025 2:14 AM T [facility] CO2 21(L) 22 - 29 mmol/L 05/20/2025 2:14 AM T [facility] CALCIUM 8.8 8.6 - 10.0 mg/dL 05/20/2025 2:14 AM T [facility] BUN 31(H) 6 - 20 mg/dL 05/20/2025 2:14 AM T [facility] CREATININE 1.75(H) 0.67 - 1.17 mg/dL 05/20/2025 2:14 AM CDT [facility] GLUCOSE 102(H) 74 - 99 mg/dL 05/20/2025 2:14 AM CDT [facility] ALBUMIN 3.3(L) 3.5 - 5.2 g/dL 05/20/2025 2:14 AM CDT [facility] PHOSPHORUS 4.7(H) 2.5 - 4.5 mg/dL 05/20/2025 2:14 AM CDT [facility] GFR 45(L) >=60 mL/min/1. 73 sq meter 05/20/2025 2:14 AM T [facility] Comment:eGFR calculated with 2020 CKD-EPI equation. Vegetarian diet, extremely high or low muscle mass, and may affect results. Cystatin C with Glomerular Filtration Rate is a suitable alternative for these patients. ANION GAP 11 9 - 20 mmol/L 05/20/2025 2:14 AM CDT [facility] Blood Venipuncture / Unknown 05/20/2025 12:49 AM CDT 05/20/2025 1:39 AM CDT Duc Camp MD CHEMISTRY ORDERABLES Final R esult [facility] # [id number] [address] [place] [address] * MRSA PCR RAPID SCREEN (05/18/2025 5:50 PM CDT) Pathologist [facility] MRSA PCR RESULT MRSA not detected MRSA not detected 05/18/2025 7:22 PM CDT [facility] Surveillance ANTERIOR NARES SWAB / Unknown Collection / Unknown 05/18/2025 5:50 PM CDT 05/18/2025 5:56 PM CDT Narrative [facility] - 05/18/2025 7:22 PM CDT This assay is used to detect Methicillin-Resistant S. aureus (MRSA) colonization of the nares. PLEASE NOTE: This test has not been approved to monitor effectiveness of MRSA decolonization. Residual DNA may temporarily be present after successful decolonization. This test was performed using an FDA approved screening methodology. us Duc Camp MD MICROBIOLOGY - GENERAL ORDER KAVITHA Final Result [facility]OR[facility] SERVICES [facility] CLIA # [id number] [address] [place] [address] * EKG 12-LEAD (05/17/2025 12:53 PM CDT) Only the most recent of3 resultswithin the time period is included. 05/17/2025 12:5 3 PM CDT Narrative INTERFACE SYSTEM - 05/18/2025 6:39 AM CDT [address] [address] Test Date: 2025-05-17 Pat Name: CRISPIN YAN Department: 12 Room: [address] [place] [address] Gender: Male Application Development Director: [email or web address] : 1965 Requested By: Order Number: [id number] Reading : Dariana Newsome Measurements Intervals [place] Rate: 92 P: 44 VA: 142 QRS: -18 QRSD: 82 T: 69 QT: 338 QTc: 417 Interpretive Statements Normal sinus rhythm Normal ECG Electronically Signed On 05-18-2025 6:39:05 CDT by Dariana Newsome Procedure Note Dariana Newsome MD - 05/18/[address] [address] Test Date: 2025-05-17 Pat Name: CRISPINMadeleine MCKEONYAN Department: 12 Room: [address] [place] [address] Gender: Male Application Development Director: [email or web address] : 1965 Requested By: Order Number: [id number] Comfort ALAS: Dariana Newsome Measurements Intervals [place] Rate: 92 P: 44 VA: 142 QRS: -18 QRSD: 82 T: 69 QT: 338 QTc: 417 Interpretive Statements Normal sinus rhythm Normal ECG Electronically Signed On 05-18-2025 6:39:05 CDT by Dariana Newsome us Duc Camp MD ECG ORDERABLES Final Result INTERFACE SYSTEM Refer to clinic/hospital department * PROCEDURE REPORT (05/10/2025 10:06 PM CDT) Narrative Procedure Note Brayden Trammell MD - 05/10/2025 10:06 PM CDT [facility] Pulmonology Patient Name: Crispin Yan Procedure Date: 05/04/2025 Date of : 1965 Admit Type: Inpatient Age: 60 Attending MD: Braydne Trammell MD, Procedure: Bronchoscopy Providers: Brayden Trammell MD Referring MD: Procedure: See epic Estimated Blood Loss: Estimated blood loss: none. Findings: Brayden Trammell MD 05/10/2025 10:06:14 PM Number of Addenda: 0 Note Initiated On: 05/04/2025 12:03 PM Scope In: 12:29:47 PM Scope Out: 12:52:[address] [place] [address], [address], [place] us Brayden Trammell MD PROCEDURE/MINOR SURGIC AL ORDERABLES Final Result * PT AND APTT (05/10/2025 9:26 AM CDT) PROTIME 14.3 12.7 - 14.9 Seconds 05/10/2025 9:57 AM CDT [facility]ORAT[facility] INR 1.1 0.8 - 1.2 05/10/2025 9:57 AM CDT [facility] PTT 28.9 24.8 - 37.2 seconds 05/10/2025 9:57 AM T [facility] Blood Venipuncture / Unknown 05/10/2025 9:26 AM CDT 05/10/2025 9:42 AM CDT Narrative [facility] - 05/10/2025 9:57 AM CDT Expected Values for INR: DVT/PE Goal INR 2.5; range 2.0 - 3.0 Valve Replacement Tissue Goal INR 2.5; range 2.0 - 3.0 Valve Replacement Mechanical Goal INR 3.0; range 2.5 - 3.5 POST-MT Goal INR 2.5; range 2.0 - 3.0 or Goal INR 3.0; range 2.5 - 3.5 Atrial Fibrillation Goal INR 2.5; range 2.0 - 3.0 Ischemic Stroke Goal INR 2.5; range 2.0 - 3.0 Therapeutic Range: Hi-level PE/DVT heparin protocol 80.1 - 95.0 sec Lo-level PE/DVT heparin protocol 70.1 - 85.0 sec Cardiac Heparin Protocol 70.1 - 100.0 sec us Zabrina Bynum PA-C HEMATOLOGY ORDERABLES Final Result [facility] CLIA # [id number] [facility] [address] * (ABNORMAL) COMPREHENSIVE METABOLIC PANEL (05/10/2025 9:26 AM CDT) Only the most recent of6 resultswithin the time period is included. [facility] SODIUM 137 136 - 145 mmol/L 05/10/2025 10:16 AM T [facility] POTASSIUM 4.8 3.5 - 5.1 mmol/L 05/10/2025 10:16 AM T [facility] CHLORIDE 101 98 - 107 mmol/L 05/10/2025 10:16 AM T [facility] CO2 25 22 - 29 mmol/L 05/10/2025 10:16 AM T [facility] CALCIUM 9.0 8.6 - 10.0 mg/dL 05/10/2025 10:16 AM [facility] BUN 37(H) 6 - 20 mg/dL 05/10/2025 10:16 AM [facility] CREATININE 1.73(H) 0.67 - 1.17 mg/dL 05/10/2025 10:16 AM [facility] GLUCOSE 108(H) 74 - 99 mg/dL 05/10/2025 10:16 AM [facility] TOTAL PROTEIN 5.9(L) 6.4 - 8.3 g/dL 05/10/2025 10:16 AM [facility] ALBUMIN 3.5 3.5 - 5.2 g/dL 05/10/2025 10:16 AM [facility] BILIRUBIN TOTAL 0.2 0.0 - 1.0 mg/dL 05/10/2025 10:16 AM [facility] ALKALINE PHOSPHATASE 72 40 - 129 U/L 05/10/2025 10:16 AM [facility] AST 27 10 - 50 U/L 05/10/2025 10:16 AM [facility] ALT 35 <=50 U/L 05/10/2025 10:16 AM [facility] GFR 45(L) >=60 mL/min/1. 73 sq meter 05/10/2025 10:16 AM [facility] Comment:eGFR calculated with 2020 CKD-EPI equation. Vegetarian diet, extremely high or low muscle mass, and may affect results. Cystatin C with Glomerular Filtration Rate is a suitable alternative for these patients. ANION GAP 11 9 - 20 mmol/L 05/10/2025 10:16 AM [facility] Blood Venipuncture / Unknown 05/10/2025 9:26 AM CDT 05/10/2025 9:42 AM T Zabrina Bynum PA-C CHEMISTRY ORDERABLES Final Result [facility] # [id number] [address] [facility] [place] [address] * IR TUBE PLACEMENT (05/06/2025 10:45 AM [...] over the wire, and a new 14 Lao resolved pigtail catheter was advanced to the [...] over the wire, and a new 14 Lao resolved pigtail catheter was advanced to the [...] IMPRESSION Successful fluoroscopy-guided left thoracostomy tube exchange. Wyatt NATHAN IR ORDERABLES Final Result * PROTIME-INR (05/06/2025 7:39 AM CDT) Only the most recent of2 resultswithin the time period is included. PROTIME 13.5 12.7 - 14.9 Seconds 05/06/2025 8:03 AM CDT [facility] [place] [facility] INR 1.0 0.8 - 1.2 05/06/2025 8:03 AM CDT [facility] Blood Venipuncture / Unknown 05/06/2025 7:39 AM CDT 05/06/2025 7:46 AM CDT Narrative [facility] - 05/06/2025 8:03 AM CDT Expected Values for INR: DVT/PE Goal INR 2.5; range 2.0 - 3.0 Valve Replacement Tissue Goal INR 2.5; range 2.0 - 3.0 Valve Replacement Mechanical Goal INR 3.0; range 2.5 - 3.5 POST-MT Goal INR 2.5; range 2.0 - 3.0 or Goal INR 3.0; range 2.5 - 3.5 Atrial Fibrillation Goal INR 2.5; range 2.0 - 3.0 Ischemic Stroke Goal INR 2.5; range 2.0 - 3.0 Zabrina Bynum PA-C HEMATOLOGY ORDERABLES Final Result Performing Organization Address [facility] Co de Phone Number [facility] CLIA # [id number] [address] [facility] [place] [address] * MAGNESIUM LEVEL (05/06/2025 7:39 AM CDT) MAGNESIUM 2.2 1.6 - 2.6 mg/dL 05/06/2025 8:19 AM CDT [facility] Blood Venipuncture / Unknown 05/06/2025 7:39 AM CDT 05/06/2025 7:46 AM CDT Zabrina Bynum PA-C CHEMISTRY ORDERABLES Final Result Performing Organization Address [facility] Co de Phone Number [facility] CLIA # [id number] [address] [place] [address] * VA ANES INSERT ENDOTRACHEAL AIRWAY (05/04/2025 12:24 PM CDT) Narrative Ian Odonnell CRNA - 05/04/2025 12:24 PM CDT Ian Odonnell CRNA 05/04/2025 12:30 PM Airway Date/Time: 05/04/2025 12:24 PM Location: Other [facility] Non OR Location: GI Plan: elective intubation Patient Identity Confirmed by: Verbally with patient Airway: not difficult Staffing Performed: MICHAELLE/CAA Authorized by: Ha Blancas MD Performed by: Ian Odonnell CRNA Indications and Patient Condition: Indications for Airway Management: Anesthesia Sedation Level: general anesthesia Preoxygenated: yes Patient Position: Sniffing Mask Difficulty Assessment: 1 - vent by mask Plan to extubate at end of case: Yes Final Airway Details: Final Airway Type: Endotracheal airway ETT Cuffed: Yes Cuff Volume (mL): 6 Technique Used for Successful ETT Placement: Direct laryngoscopy Devices/Methods Used in Placement: Intubating stylet Blade Type: straight blade Blade Size: 2 Insertion Site: Oral ETT Size (mm): 8.0 Measured from: Gums ETT to Gums (cm): 22 Tube secured with: Tape and bite block Placement Verified by: auscultation Cormack-Lehane Classification: Grade IIa - partial view of glottis Number of Attempts at Approach: 1 Additional Procedure Information: atraumatic and dentition unchanged Ha Blancas MD PROCEDURE/MINOR SURGICAL ORDE NATALIE Final Result * CT CHEST WO CONTRAST (04/30/2025 [...] assess for resolution. 3. Advanced pulmonary emphysema. Thais Shaw CAREER AND GUIDANCE COUNSELOR CT ORDERABLES Final Result * PTH INTACT (04/27/2025 6:21 AM CDT) PTH INTACT 43.7 17.9 - 58.6 pg/mL 04/27/2025 7:01 AM CDT [facility] Blood Venipuncture / Unknown 04/27/2025 6:21 AM CDT 04/27/2025 6:28 AM CDT Liset William DO CHEMISTRY ORDERABLES Final Resu lt Performing Organization Address City/[facility] Co de Phone Number [facility] CLIA # [id number] [address] [facility] [place] [address] * EXTRA TUBE (URINE ROSAS) (04/26/2025 11:40 AM CDT) Urine URINE SPECIMEN OBTAINED BY CLEAN CATCH PROCEDURE / Unknown Collection / Unknown 04/26/2025 11:40 AM CDT 04/26/2025 12:00 PM CDT Liset William DO URINE ORDERABLES Final Result Performing Organization Address City/[facility] de Phone Number [facility] CLIA # [id number] [address] [place] [address] * (ABNORMAL) URINALYSIS WITH REFLEX MICROSCOPIC (04/26/2025 11:40 AM CDT) COLOR UA Colorless(A ) Pale to Dark Yellow 04/26/2025 12:07 PM CDT [facility] CLARITY UA Clear Clear 04/26/2025 12:07 PM CDT [facility] SPECIFIC GRAVITY UA 1.009 1.003 - 1.035 04/26/2025 12:07 PM CDT [facility] PH UA 5.5 5.0 - 8.0 04/26/2025 12:07 PM CDT [facility] LEUKOCYTE ESTERASE UA Negative Negative 04/26/2025 12:07 PM CDT [facility] NITRITE UA Negative Negative 04/26/2025 12:07 PM CDT [facility] PROTEIN UA Negative Negative 04/26/2025 12:07 PM CDT [facility] GLUCOSE UA Negative Negative 04/26/2025 12:07 PM T [facility] KETONES UA Negative Negative 04/26/2025 12:07 PM T [facility] UROBILINOGEN UA <2.0 <2.0 mg/dL 12:07 PM CDT [facility] BILIRUBIN UA Negative Negative 04/26/2025 12:07 PM T [facility] BLOOD UA Negative Negative 04/26/2025 12:07 PM T [facility] Urine URINE SPECIMEN OBTAINED BY CLEAN CATCH PROCEDURE / Unknown Collection / Unknown 04/26/2025 11:40 AM CDT 04/26/2025 12:00 PM CDT us Liset A [place] DO URINE ORDERABLES Final Result [facility] CLIA # [id number] [address] [place] [address] * BLOOD CULTURE (04/26/2025 9:10 AM CDT) Only the most recent of2 resultswithin the time period is included. BLOOD CULTURE No growth 05/01/2025 11:28 AM CDT [facility] Blood (Peripheral) Venipuncture / Unknown 04/26/2025 9:10 AM CDT 04/26/2025 9:30 AM CDT Edwin Beauchamp MD MICROBIOLOGY - GENERA L ORDERABLES Final Result Performing Organization Address [facility] Co de Phone Number [facility] CLIA # [id number] [address] [place] [address] * (ABNORMAL) VITAMIN D 25 HYDROXY (04/26/2025 9:04 AM CDT) VITAMIN D TOTAL (25OH) 27(L) 30 - 100 ng/mL 04/26/2025 11:42 AM CDT [facility] Blood Venipuncture / Unknown 04/26/2025 9:04 AM CDT 04/26/2025 9:31 AM CDT Narrative [facility] - 04/26/2025 11:42 AM CDT Interpretive Data Chart: Deficient: 0 - 20 ng/mL Insufficient: 21 - 29 ng/mL Sufficient: 30 - 100 ng/mL Increased Risk of Hypercalciuria: >100 ng/ml Toxic: >150 ng/ml Liset William DO CHEMISTRY ORDERABLES Final Resu lt Performing Organization Address [facility] Co de Phone Number [facility] CLIA # [id number] [address] [place] [id number] * (ABNORMAL) POC GLUCOSE (04/25/2025 10:21 AM CDT) Only the most recent of5 resultswithin the time period is included. GLUCOSE POC 112(H) 74 - 99 mg/dL 04/25/2025 10:21 AM CDT [facility] SPECIMEN SOURCE, GLUCOSE POC Arterial 04/25/2025 10:21 AM CDT [facility] Blood, whole 04/25/2025 10:2 1 AM CDT 04/25/2025 5:54 PM CDT Edwin Beauchamp MD POINT OF CARE TESTING Final Result [facility] CLIA # [id number] [address] [facility] [place] [address] * (ABNORMAL) BLOOD GAS ARTERIAL (04/25/2025 8:22 AM CDT) [facility] PH BLOOD POC 7.38 7.35 - 7.45 04/25/2025 8:22 AM T [facility] PCO2 POC 33(L) 35 - 45 mm Hg 04/25/2025 8:22 AM T [facility] PO2 POC 188(H) 80 - 105 mm Hg 04/25/2025 8:22 AM [facility] HCO3 (CALC) POC 20(L) 22 - 26 mmol/L 04/25/2025 8:22 AM T [facility] HEMOGLOBIN POC 15.7 12.0 - 18.0 g/dL 04/25/2025 8:22 AM [facility] BASE EXCESS POC -6(L) -2 - 3 mmol/L 04/25/2025 8:22 AM [facility] O2 SATURATION POC 100(H) 95 - 98 % 04/25/2025 8:22 AM T [facility] SODIUM POC 124(L) 138 - 146 mmol/L 04/25/2025 8:22 AM [facility] POTASSIUM POC 5.4(H) 3.5 - 4.9 mmol/L 04/25/2025 8:22 AM T [facility] HEMATOCRIT POC 47 38 - 51 % 04/25/2025 8:22 AM T [facility] PH TEMP CORRECT 7.38 7.35 - 7.45 04/25/2025 8:22 AM T [facility] PCO2 TEMP CORRECT 33(L) 35 - 45 mm Hg 04/25/2025 8:22 AM CDT [facility] PO2 TEMP CORRECT 188(H) 80 - 105 mm Hg 04/25/2025 8:22 AM CDT [facility] SPECIMEN SOURCE, GASES POC Arterial 04/25/2025 8:22 AM CDT [facility] CALCIUM IONIZED POC 4.6(L) 4.8 - 5.2 mg/dL 04/25/2025 8:22 AM CDT [facility] TCO2 (CALC) POC 21(L) 23 - 27 mmol/L 04/25/2025 8:22 AM CDT [facility] PUNC SITE POC ART PUNCT 04/25/2025 8:22 AM CDT [facility] Blood, arterial 04/25/2025 8 :22 AM CDT 04/25/2025 8:24 AM CDT us Maxine Alvarado MD ABG ORDERABLES Final Result [facility] CLIA # [id number] [address] [place] [address] * (ABNORMAL) TROPONIN 6 HR, 5TH GEN (04/25/2025 5:27 AM CDT) TROPONIN T, 6 HR 5TH GEN 28(H) <=15 ng/L 04/25/2025 6:46 AM CDT [facility] Comment:Hemolysis can falsel y decrease Troponin quantitation. DELTA 6HR TROPONIN T 8 See Interp. 04/25/2025 6:46 AM CDT [facility] Blood Venipuncture / Unknown 04/25/2025 5:27 AM CDT 04/25/2025 5:50 AM CDT Narrative [facility] - 04/25/2025 6:46 AM CDT Troponin elevated. Delta indeterminate. Delay in collection of timed specimen beyond recommended collection interval. Results must be interpreted in clinical context. us Dagoberto Lenz DO CHEMISTRY ORDERABLES Final R esult Performing Organization Address [facility]/ZIP Co de Phone Number [facility] [place] [facility] CLIA # [id number] [address] [address] * (ABNORMAL) TROPONIN 2 HR, 5TH GEN (04/24/2025 11:34 PM CDT) TROPONIN T, 2 HR 5TH GEN 22(H) <=15 ng/L 04/25/2025 12:15 AM CDT [facility] [place] [facility] DELTA 2HR TROPONIN T 2 See Interp. 04/25/2025 12:15 AM CDT [facility] [place] [facility] Blood Venipuncture / Unknown 04/24/2025 11:34 PM CDT 04/24/2025 11:41 PM CDT [facility] [place] [facility] - 04/25/2025 12:15 AM CDT Troponin elevated. Delta not changing. us Dagoberto Lenz DO CHEMISTRY ORDERABLES Final R ult Performing Organization Address [facility] Co de Phone Number [facility] [place] [facility] CLIA # [id number] [facility] [address] * (ABNORMAL) TROPONIN BASELINE, 5TH GEN (04/24/2025 9:39 PM CDT) TROPONIN T, BASELINE 5TH GEN 20(H) <=15 ng/L 04/24/2025 10:26 PM CDT [facility] [place] [facility] Blood Venipuncture / Unknown 04/24/2025 9:39 PM CDT 04/24/2025 9:54 PM CDT [facility] [place] [facility] - 04/24/2025 10:26 PM CDT Troponin elevated. us Dagoberto Lenz DO CHEMISTRY ORDERABLES Final R esult [id number] [address] [address] [place] [address] from Last 3 Months Insurance [place]ICA[place] Advance Directives For more information, please contact: [phone] * Full Code (Latest Code Status on File) Date Activated Date Inactivated Comments 04/24/2025 2:44 PM 05/26/2025 12:59 PM
--- OUTSIDE RECORDS SUMMARY | 2025-05-29 08:26 | XMS_ITS | Encounter Summary ---
Author Organization [employer] Address 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 Name Role Phone Unavailable Primary Care Provider Unavailabl e Reason for Visit * Reason Onset Date Comments Needs Appointment 05/28/2025 Encounter Details Date Type Department Care Team ([facility] Contact Info) Description 05/28/2025 Telephone [facility] Cardiothoracic Surgery [place] [id number] [phone] Lincoln Morales Needs Appointment Social History Tobacco Use Types Packs/Day Years [...] on file Legal Sex Male 1:23 AM [employer] Gender Identity Not on file Sexual Orientation Not on file documented as of this encounter Miscellaneous Notes * Telephone Encounter - Lincoln Morales - 05/28/2025 10:22 AM CDT states that he is has no transportation to get here from [place]. He has a pcp but they cannot get him in until June. Message sent to Dr. Atkins. documented in this encounter Plan of Treatment Upcoming Encounters Date Type Department Care Team (Late Contact Info) Description 06/03/2025 9:00 AM CDT Appointment [facility] Imaging Services [address] [place] [address] Puma Atkins MD [address] [phone] 06/03/2025 10:30 AM CDT Office Visit [facility] Cardiothoracic Surgery [facility] [address] [phone] documented as of this encounter Visit Diagnoses Not on filedocumented in this encounter
--- NOTE | 2025-05-29 08:34 | ED_ITS ---
HPI - General Adult General: Chief complaint: Skin/Abscess/Foreign Body Stated complaint: wants stitches removed Time Seen by Provider: 05/29/25 08:31 Source: patient Mode of arrival: ambulatory Limitations: no limitations History of Present Illness: 60-year-old male states he had a collaps ed left lung last week he had been seen at [facility] and had a chest tube placed left chest he states that he he has had it removed and now needs to have the stitches removed at this time. Denies any fevers or redness or drainage she denies any chest pain or shortness of breath. Related Data Previous Rx's ?Medication ?Instructions ?Recorded albuterol sulfate 90 mcg/actuation 1 inh inhalation QI D PRN shortness 01/28/25 aerosol inhaler of breath or wheezing #8.5 g ryan dapagliflozin propanediol 5 mg 5 mg PO DAILY #90 tabs 01/28/25 tablet (Farxiga) umeclidinium 62.5 mcg-vilanterol 1 inh inhalation SAVANA Y #60 ea 03/29/25 25 mcg/actuation powdr for inhalation (Anoro Ellipta) lisinopril 40 mg tablet 40 mg PO DAILY #30 tabs 10/20 Allergies Allergy/AdvReac Type Severity Reaction Status Date / Time No Known Allergies Allergy Verified 01/28/25 08:43 [facility] ED PFSH: Medical History (Updated 05/29/25 @ 08:34 by Daya Watson MD) Severe tobacco use disorder CKD stage 3b, GFR 30-44 ml/min Smoking addiction Bilateral kidney masses Seen on chest CT 12/20/2023, US Renal ordered 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 Social History Smoking and tobacco/nicotine status: current every day tobacco/nicotine user cigarettes Packs smoked per day: 1.5 Years cigarettes smoked: 40 [ Other cigarette details: Started at 19] Quit status (tobacco/nicotine): not considering quitting Second hand smoke exposure: No Alcohol intake: former Substance/Drug Use: never Highest education level completed: 8th Grade Physical Exam Const: COMMON NORMALS: no acute distress, patient oriented x3 and healthy appearing HENMT: COMMON NORMALS: normocephalic and atraumatic HEAD & SCALP: normocephalic and atraumatic Eye: COMMON NORMALS: conjunctivae normal CONJUNCTIVA: Yes conjunctivae normal Neck/C-Spine: COMMON NORMALS: full ROM and supple Chest: COMMONS NORMALS: normal inspection of the chest Resp: COMMON NORMALS: normal respiratory effort, No retractions, No use of accessory muscles and clear to auscultation bilaterally AUSCULTATION: clear to auscultation bilaterally Cardio: COMMON NORMALS: regular rate RATE: regular rate Extremity: COMMON NORMALS: normal to inspection Neuro: COMMON NORMALS: patient oriented x3, moves all extremities and no focal motor deficits Psych: COMMON NORMALS: mental status grossly normal, Normal thought process present and cooperative THOUGHT PROCESS: Normal thought process present Skin: COMMON NORMALS: no rashes or lesions noted NARRATIVE SKIN EXAM: [address] left lateral chest wounds clean dry and intact GENERAL SKIN EXAM: no rashes or lesions noted Course Vital Signs: Vital signs: Vital Signs Temperature 98.1 F 05/29/25 08:38 Pulse Rate 110 H 05/29/25 08:38 Respiratory Rate 25 H 05/29/25 08:38 Blood Pressure 172/82 05/29/25 08:38 Pulse Oximetry 95 05/29/25 08:38 Oxygen Delivery Me thod Room Air 05/29/25 08:38 MDM - General Adult Medical Decision Making Patient presents here to have his stitches removed from his chest tube placement his lungs are clear he has no shortness of breath wounds clean dry and intact nurse did remove the stitch she stable for discharge she is to follow-up with his physician return if worsening No radiology studies performed this visit Discharge Plan Discharge Patient Disposition: Home Clinical Impression: Encounter for removal of sutures Condition: Stable Prescriptions: No Action Farxiga 5 mg tablet 5 mg PO DAILY Qty: 90 1RF albuterol sulfate 90 mcg/actuation HFA aerosol inhaler 1 inh inhalation QID PRN (Reason: shortness of breath or wheezing) Qty: 8.5 1RF Anoro Ellipta 62.5-25 mcg/actuation blister with device 1 inh inhalation DAILY Qty: 60 1RF lisinopril 40 mg tablet 40 mg PO DAILY Qty: 30 2RF Discharge Orders: Discharge ED (Routine); Ordered 05/29/25 Ordered By: Daya Watson Referrals: Rocky Fuentes MD [Primary Care Provider, Family Practice] - 4-7 days Discharge Diet: Advance as tolerated Discharge Activity: Resume usual activity Patient Instructions: Stitches Removal (ED) Print Language: Urdu Coding Level of Care Code ED 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
[2025-05-29 08:38] VITALS: BP 172/82; PULSE 110; RESP 25; TEMP 36.7; O2SAT 95; BMI 19.5
== END 2025-05-29 08:46 | disposition home or self-care (01) ==
PROVIDERS: Emergency Provider Emergency Medicine; PCP Family Medicine
DX: Z48.02 Encounter for removal of sutures (principal); F17.210 Nicotine dependence, cigarettes, uncomplicated; J44.9 Chronic obstructive pulmonary disease, unspecified; I12.9 Hypertensive chronic kidney disease with stage 1 through stage 4 chronic kidney disease, or unspecified chronic kidney disease; N18.32 Chronic kidney disease, stage 3b
CPT/HCPCS: 99281

== ENCOUNTER → 2025-06-29 11:48 | Outpatient (BNVA) | payer MEDICAID, SELFPAY | PROVIDERS: PCP Family Medicine; Visit Provider Family Medicine | DX: I12.9 Hypertensive chronic kidney disease with stage 1 through stage 4 chronic kidney disease, or unspecified chronic kidney disease (principal); N18.4 Chronic kidney disease, stage 4 (severe) | CPT/HCPCS: 80053; 84439; 84443; 85025 ==

== ENCOUNTER 2025-07-23 17:21 | Emergency (ER) | payer MEDICAID, SELFPAY ==
[2025-07-23 17:22] VITALS: BP 172/115; PULSE 118; RESP 16; TEMP 37; O2SAT 99; BMI 22.3
--- OUTSIDE RECORDS SUMMARY | 2025-07-23 17:29 | XMS_ITS | Clinical Summary ---
Author Organization [facility] Address [address] [place] [address] Phone Care Team Providers Care Subway Conductor Name Role Phone Unavailable Primary Care Provider Unavailabl e Allergies No known active allergies Medications umeclidinium (INCRUSE ELLIPTA) 62.5 mcg/actuation Disk with Device Take 1 Puff by inhalation daily. Active nicotine (NICODERM CQ) 7 mg/24 hr patch Apply 1 Patch to skin as directed daily. Active albuterol sulfate HFA 90 mcg/actuation aerosol inhaler Take 2 Puffs by inhalation every 6 hours as needed for Shortness of Breath (home regimen with spacer). Active gabapentin (NEURONTIN) 300 mg capsule Take 1 Capsule (300 mg) by mouth every 8 hours. 90 Capsule Active amLODIPine (NORVASC) 5 mg tablet Take 1 Tablet (5 mg) by mouth daily. 30 Tablet Active Active Problems Problem Noted Date Diagnosed Date Hypertension, essential 05/09/2025 Moderate protein-calorie malnutrition 05/03/2025 Chronic kidney disease, stage IV (severe) 2024 Acute respiratory failure with hypoxia Secondary spontaneous pneumothorax 04/24/2025 Cigarette smoker 04/24/2025 Elevated serum creatinine 04/24/2025 Hyperkalemia 04/24/2025 Encounters Date Type Department Care Team Description 07/13/2025 External Device Data ST[facility] ABSTRACTION Provider, Abstract 06/29/2025 External Device Data [facility] ABSTRACTION Provider, Abstract 06/29/2025 External Device Data [facility] ABSTRACTION Provider, Abstract 06/16/2025 External Device Data [facility] ABSTRACTION Provider, Abstract 06/15/2025 External Device Data [facility] ABSTRACTION Provider, Abstract 06/01/2025 External Device Data [facility] ABSTRACTION Provider, Abstract 05/28/2025 Orders Only [facility] HIM [address] [place] [address] Provider, Abstract 05/28/[address] [facility] [address] [place] [address] [place] [phone] Lincoln Morales Needs Appointment 05/28/[address] [facility] [address] [place] [address] [place] [phone] Mitchell Muhammad Appointment Correction 05/26/[address] [facility] [address] [address] Puma Atkins MD Secondary spontaneous pneumothorax (Primary Dx) 05/25/2025 External Device Data [facility] ABSTRACTION Provider, Abstract 05/25/2025 External Device Data [facility] ABSTRACTION Provider, Abstract 05/04/2025 12:17 PM CDT Anesthesia Event [facility] Endoscopy [address] [place] [address] Ha Blancas MD 05/04/2025 10:56 AM CDT - 05/04/2025 11:28 AM CDT Surgery [facility] Endoscopy [address] [place] [phone] Brayden Trammell MD BRONCHOSCOPY 04/30/2025 Chart Note [facility] Pulmonology [address] [place] [address] Brayden Trammell MD 04/27/2025 External Device Data [facility] ABSTRACTION Provider, Abstract 04/27/2025 External Device Data [facility] ABSTRACTION Provider, Abstract 04/27/2025 External Device Data [facility] ABSTRACTION Provider, Abstract 04/24/2025 1:46 PM CDT - 05/26/2025 10:49 AM CDT Hospital Encounter [facility] 4D Surgery Heart Lung [address] [place] [phone] Ebony Aragon MD Norman, Rocky Louise, DO Salas, MD Kel Centeno, Antolin Duncan, Maxine Hartmann MD Fariza, MD Katharina Garnica, Shania Ring, MD Moreno, Jerry Muro, Piyush Ocampo MD Raavi, MD Conrado Ga, MD Pratima Xavier, MD Jayce Buckley Marwan, MD Secondary spontaneous pneumothorax Discharge Disposition: Home or Self Care 04/24/2025 Travel 04/24/2025 Mobile Encounter [facility] Pulmonology [address] [place] [phone] Brayden Trammell MD from Last 3 Months Social History Tobacco Use Types Packs/Day Years Used Date Smoking Tobacco: Every Day Cigarettes 0.5 41.9 Started: 1983 Smokeless Tobacco: Never Tobacco Cessation:Ready [...] on file 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 Gender Identity Not on file Sexual Orientation [...] 04/24/2025 3:22 PM CDT Plan of Treatment Health Maintenance Due Date Last Done Comments DTAP/TDAP/TD VACCINES (1 - Tdap) 1986 HEPATITIS B VACCINES (1 of 3 - 19+ 3-dose series) 01/24 COLORECTAL SCREENING 02/10/2012 Colorectal Cancer Screening 02/10/2012 FIT-DNA Q 3 years 02/10/2012 FIT/FOBT Q 1 year 02/10/2012 Flex Sig/CT Colonography Q 5 years 02/10/2012 Lung Cancer Screening 2017 ZOSTER VACCINE (1 of 2) 2017 INFLUENZA VACCINE (#1) 2025 Medical Devices Implanted Type Area Rice Field Worker Device Identifier Shelf Expiration Date Model / Serial / Lot Resolve Drainage Catheter-2024 Implanted:Qty: 1 on 05/06/2025 by Darin Lucero PA-C Catheter Left: Chest 08/24/2027 [facility]-[id number] MB / / [id number] Description:Lt chest tube Procedures Procedure Name Priority [...] 1 VW Stat 05/04/2025 1:21 PM CDT [place] ANES INSERT ENDOTRACHEAL AIRWAY Routine 05/04/2025 12:24 [...] 136 - 145 mmol/L 05/26/2025 4:53 AM CDT [facility] [place] POTASSIUM 5.1 3.5 - 5.1 mmol/L 05/26/2025 4:53 AM T [facility] [place] CHLORIDE 105 98 - 107 mmol/L 05/26/2025 4:53 AM CDT [facility] CO2 20(L) 22 - 29 mmol/L 05/26/2025 4:53 AM T [facility] CALCIUM 8.9 8.6 - 10.0 mg/dL 05/26/2025 4:53 AM T [facility] BUN 36(H) 6 - 20 mg/dL 05/26/2025 4:53 AM T [facility] CREATININE 1.88(H) 0.67 - 1.17 mg/dL 05/26/2025 4:53 AM [facility] GLUCOSE 103(H) 74 - 99 mg/dL 05/26/2025 4:53 AM [facility] GFR 41(L) >=60 mL/min/1. 73 sq meter 05/26/2025 4:53 AM T [facility] Comment:eGFR calculated with 2020 CKD-EPI equation. Vegetarian diet, extremely high or low muscle mass, and may affect results. Cystatin C with Glomerular Filtration Rate is a suitable alternative for these patients. ANION GAP 11 9 - 20 mmol/L 05/26/2025 4:53 AM T [facility] Blood Venipuncture / Unknown 05/26/2025 4:00 AM CDT 05/26/2025 4:22 AM CDT us Marie Eduardo MD CHEMISTRY ORDERABLES Final Res ult [facility] CLIA # [id number] [address] [place] [address] * POTASSIUM LEVEL (05/25/2025 1:34 PM CDT) Only the most recent of2 resultswithin the time period is included. POTASSIUM 4.8 3.5 - 5.1 mmol/L 05/25/2025 2:13 PM CDT [facility] Blood Venipuncture / Unknown 05/25/2025 1:34 PM CDT 05/25/2025 1:40 PM CDT us Marie Eduardo MD CHEMISTRY ORDERABLES Final Res ult [facility] CLIA # [id number] [address] [place] [address] [place] [address] * (ABNORMAL) CBC WITHOUT DIFFERENTIAL (05/25/2025 5:38 AM CDT) Only the most recent of4 resultswithin the time period is included. WBC 9.6 4.8 - 10.8 K/uL 05/25/2025 6:10 AM CDT [facility] RBC 3.92(L) 4.60 - 6.20 M/uL 05/25/2025 6:10 AM CDT [facility] HEMOGLOBIN 11.7(L) 14.0 - 18.0 g/dL 05/25/2025 6:10 AM CDT [facility] HEMATOCRIT 35.1(L) 41.0 - 53.0 % 05/25/2025 6:10 AM CDT [facility] MCV 89.5 84.0 - 103.0 fL 05/25/2025 6:10 AM CDT [facility] MCH 29.8 27.0 - 34.0 pg 05/25/2025 6:10 AM CDT [facility] MCHC 33.3 30.0 - 35.0 g/dL 05/25/2025 6:10 AM CDT [facility] PLATELETS 541(H) 140 - 440 K/uL 05/25/2025 6:10 AM CDT [facility] MPV 9.1 8.9 - 12.8 fL 05/25/2025 6:10 AM CDT [facility] RDW 14.5 11.0 - 14.5 % 05/25/2025 6:10 AM CDT [facility] RDW-STDEV 47.8 37.0 - 54.0 fL 05/25/2025 6:10 AM CDT [facility] Blood Venipuncture / Unknown 05/25/2025 5:38 AM CDT 05/25/2025 6:01 AM CDT us Marie Eduardo MD HEMATOLOGY ORDERABLES Final Re sult [facility] CLIA # [id number] [address] [address] [place] [address] * (ABNORMAL) CBC WITH DIFFERENTIAL (05/22/2025 9:40 AM CDT) Only the most recent of13 resultswithin the time period is included. WBC 12.9(H) 4.8 - 10.8 K/uL 05/22/2025 9:53 AM CDT [facility] RBC 3.93(L) 4.60 - 6.20 M/uL 05/22/2025 9:53 AM T [facility] HEMOGLOBIN 11.7(L) 14.0 - 18.0 g/dL 05/22/2025 9:53 AM CDT [facility] HEMATOCRIT 35.8(L) 41.0 - 53.0 % 05/22/2025 9:53 AM CDT [facility] MCV 91.1 84.0 - 103.0 fL 05/22/2025 9:53 AM CDT [facility] MCH 29.8 27.0 - 34.0 pg 05/22/2025 9:53 AM CDT [facility] MCHC 32.7 30.0 - 35.0 g/dL 05/22/2025 9:53 AM CDT [facility] PLATELETS 464(H) 140 - 440 K/uL 05/22/2025 9:53 AM CDT [facility] MPV 9.1 8.9 - 12.8 fL 05/22/2025 9:53 AM [facility] RDW 14.6(H) 11.0 - 14.5 % 05/22/2025 9:53 AM [facility] RDW-STDEV 48.8 37.0 - 54.0 fL 05/22/2025 9:53 AM [facility] NEUTROPHILS 59 42 - 75 % 05/22/2025 9:53 AM [facility] LYMPHOCYTES 16(L) 24 - 44 % 05/22/2025 9:53 AM [facility] MONOCYTES 15(H) 2 - 10 % 05/22/2025 9:53 AM [facility] EOSINOPHILS 9(H) 0 - 7 % 05/22/2025 9:53 AM [facility] BASOPHILS 1 0 - 1 % 05/22/2025 9:53 AM [facility] IMMATURE GRANULOCYTES 0 0 - 2 % 05/22/2025 9:53 AM [facility] NEUTROPHIL ABSOLUTE 7.69 2.00 - 8.00 K/uL 05/22/2025 9:53 AM [facility] LYMPHOCYTE ABSOLUTE 2.05 1.20 - 4.00 K/uL 05/22/2025 9:53 AM [facility] MONOCYTE ABSOLUTE 1.88(H) 0.10 - 0.60 K/uL 05/22/2025 9:53 AM [facility] EOSINOPHIL ABSOLUTE 1.17(H) 0.00 - 0.70 K/uL 05/22/2025 9:53 AM [facility] BASOPHILS ABSOLUTE 0.08 0.00 - 0.20 K/uL 05/22/2025 9:53 AM [facility] IMMATURE GRANULOCYTES ABSOLUTE 0.05 0.00 - 0.10 K/uL 05/22/2025 9:53 AM [facility] SMEAR REVIEWED: NA - Not Applicable 05/22/2025 9:53 AM [facility] Blood Venipuncture / Unknown 05/22/2025 9:40 AM CDT 05/22/2025 9:50 AM CDT us Roel Andujar MD HEMATOLOGY ORDERABLES Final Res ult [facility] CLJOLIE # [id number] [address] [address] [place] [address] * (ABNORMAL) RENAL FUNCTION PANEL (05/20/2025 12:49 AM CDT) Only the most recent of4 resultswithin the time period is included. SODIUM 135(L) 136 - 145 mmol/L 05/20/2025 2:14 AM CDT [facility] POTASSIUM 4.6 3.5 - 5.1 mmol/L 05/20/2025 2:14 AM CDT [facility] CHLORIDE 103 98 - 107 mmol/L 05/20/2025 2:14 AM CDT [facility] CO2 21(L) 22 - 29 mmol/L 05/20/2025 2:14 AM CDT [facility] CALCIUM 8.8 8.6 - 10.0 mg/dL 05/20/2025 2:14 AM T [facility] BUN 31(H) 6 - 20 mg/dL 05/20/2025 2:14 AM T [facility] CREATININE 1.75(H) 0.67 - 1.17 mg/dL 05/20/2025 2:14 AM CDT [facility] GLUCOSE 102(H) 74 - 99 mg/dL 05/20/2025 2:14 AM T [facility] ALBUMIN 3.3(L) 3.5 - 5.2 g/dL 05/20/2025 2:14 AM CDT [facility] PHOSPHORUS 4.7(H) 2.5 - 4.5 mg/dL 05/20/2025 2:14 AM CDT [facility] GFR 45(L) >=60 mL/min/1. 73 sq meter 05/20/2025 2:14 AM CDT [facility] Comment:eGFR calculated with 2020 CKD-EPI equation. Vegetarian diet, extremely high or low muscle mass, and may affect results. Cystatin C with Glomerular Filtration Rate is a suitable alternative for these patients. ANION GAP 11 9 - 20 mmol/L 05/20/2025 2:14 AM CDT [facility] Blood Venipuncture / Unknown 05/20/2025 12:49 AM CDT 05/20/2025 1:39 AM CDT Duc Camp MD CHEMISTRY ORDERABLES Final R esult Performing Organization Address [facility]/ZIP Co de Phone Number [facility] CLIA # [id number] [address] [place] [address] * MRSA PCR RAPID SCREEN (05/18/2025 5:50 PM CDT) [facility] MRSA PCR RESULT MRSA not detected MRSA not detected 05/18/2025 7:22 PM CDT [facility] Surveillance ANTERIOR NARES SWAB / Unknown Collection / Unknown 05/18/2025 5:50 PM CDT 05/18/2025 5:56 PM CDT Narrative [facility] - 05/18/2025 7:22 PM CDT This assay is used to detect Methicillin-Resistant S. aureus (MRSA) colonization of the nares. PLEASE NOTE: This test has not been approved to monitor effectiveness of MRSA decolonization. Residual DNA may temporarily be present after successful decolonization. This test was performed using an FDA approved screening methodology. Duc Camp MD MICROBIOLOGY - GENERAL ORDER KAVITHA Final Result Performing Organization Address City/[facility]/ZIP Co de Phone Number [facility] CLIA # [id number] [address] [place] [place] [address] * EKG 12-LEAD (05/17/2025 12:53 PM CDT) Only the most recent of3 resultswithin the time period is included. 05/17/2025 12:5 3 PM CDT Narrative INTERFACE SYSTEM - 05/18/2025 6:39 AM CDT [address] [address] Test Date: 2025-05-17 Pat Name: CRISPIN MCKEONWELL Department: 12 Room: [address] [place] [address] Gender: Male Pole Framer: [email or web address] : 1965 Requested By: Order Number: [id number] Reading MD: Dariana Newsome Measurements Intervals [place] Rate: 92 P: 44 NC: 142 QRS: -18 QRSD: 82 T: 69 QT: 338 QTc: 417 Interpretive Statements Normal sinus rhythm Normal ECG Electronically Signed On 05-18-2025 6:39:05 CDT by Dariana Newsome Procedure Note Dariana Newsome MD - 05/18/[address] [address] Test Date: 2025-05-17 Pat Name: CRISPIN MCKEONWELL Department: 12 Room: [address] [place] [address] Gender: Male Pole Framer: [email or web address] : 1965 Requested By: Order Number: [id number] Reading MD: Dariana Newsome Measurements Intervals [place] Rate: 92 P: 44 NC: 142 QRS: -18 QRSD: 82 T: 69 QT: 338 QTc: 417 Interpretive Statements Normal sinus rhythm Normal ECG Electronically Signed On 05-18-2025 6:39:05 CDT by Dariana Newsome us Duc Camp MD ECG ORDERABLES Final Result INTERFACE SYSTEM Refer to clinic/hospital department * PROCEDURE REPORT (05/10/2025 10:06 PM CDT) Narrative Procedure Note Brayden Trammell MD - 05/10/2025 10:06 PM CDT [facility] Pulmonology Patient Name: Crispin Yan Procedure Date: [...] In: 12:29:47 PM Scope Out: 12:52:46 PM [facility], [address], [place] Brayden Trammell MD PROCEDURE/MINOR SURGIC AL ORDERABLES Final Result * PT AND APTT (05/10/2025 9:26 AM CDT) PROTIME 14.3 12.7 - 14.9 Seconds 05/10/2025 9:57 AM CDT [facility] INR 1.1 0.8 - 1.2 05/10/2025 9:57 AM CDT [facility] PTT 28.9 24.8 - 37.2 seconds 05/10/2025 9:57 AM CDT [facility] Blood Venipuncture / Unknown 05/10/2025 9:26 AM CDT 05/10/2025 9:42 AM CDT Narrative [facility] - 05/10/2025 9:57 AM CDT Expected Values for INR: DVT/PE Goal INR 2.5; range 2.0 - 3.0 Valve Replacement Tissue Goal INR 2.5; range 2.0 - 3.0 Valve Replacement Mechanical Goal INR 3.0; range 2.5 - 3.5 POST-MO Goal INR 2.5; range 2.0 - 3.0 [...] Zabrina Bynum PA-C HEMATOLOGY ORDERABLES Final Result [facility] # [id number] [address] [address] [place] [address] * (ABNORMAL) COMPREHENSIVE METABOLIC PANEL (05/10/2025 9:26 AM CDT) Only the most recent of6 resultswithin the time period is included. SODIUM 137 136 - 145 mmol/L 05/10/2025 10:16 AM T [facility] POTASSIUM 4.8 3.5 - 5.1 mmol/L 05/10/2025 10:16 AM CDT [facility] CHLORIDE 101 98 - 107 mmol/L 05/10/2025 10:16 AM T [facility] CO2 25 22 - 29 mmol/L 05/10/2025 10:16 AM T [facility] CALCIUM 9.0 8.6 - 10.0 mg/dL 05/10/2025 10:16 AM CDT [facility] BUN 37(H) 6 - 20 mg/dL 05/10/2025 10:16 AM T [facility] CREATININE 1.73(H) 0.67 - 1.17 mg/dL 05/10/2025 10:16 AM CDT [facility] GLUCOSE 108(H) 74 - 99 mg/dL 05/10/2025 10:16 AM T [facility] TOTAL PROTEIN 5.9(L) 6.4 - 8.3 g/dL 05/10/2025 10:16 AM CDT [facility] ALBUMIN 3.5 3.5 - 5.2 g/dL 05/10/2025 10:16 AM T [facility] BILIRUBIN TOTAL 0.2 0.0 - 1.0 mg/dL 05/10/2025 10:16 AM CDT [facility] ALKALINE PHOSPHATASE 72 40 - 129 U/L 05/10/2025 10:16 AM T [facility] AST 27 10 - 50 U/L 05/10/2025 10:16 AM T [facility] ALT 35 <=50 U/L 05/10/2025 10:16 AM T [facility] GFR 45(L) >=60 mL/min/1. 73 sq meter 05/10/2025 10:16 AM T [facility] Comment:eGFR calculated with 2020 CKD-EPI equation. Vegetarian diet, extremely high or low muscle mass, and may affect results. Cystatin C with Glomerular Filtration Rate is a suitable alternative for these patients. ANION GAP 11 9 - 20 mmol/L 05/10/2025 10:16 AM T [facility] Blood Venipuncture / Unknown 05/10/2025 9:26 AM CDT 05/10/2025 9:42 AM CDT Zabrina Bynum PA-C CHEMISTRY ORDERABLES Final Result [facility] CLIA # [id number] [address] [place] [address] * IR TUBE PLACEMENT (05/06/2025 10:45 AM [...] over the wire, and a new 14 Setswana resolved pigtail catheter was advanced to the [...] over the wire, and a new 14 Setswana resolved pigtail catheter was advanced to the [...] - 14.9 Seconds 05/06/2025 8:03 AM CDT [facility] [employer] [facility] INR 1.0 0.8 - 1.2 05/06/2025 8:03 AM CDT [facility] Blood Venipuncture / Unknown 05/06/2025 7:39 AM CDT 05/06/2025 7:46 AM CDT [facility] [employer] [facility] - 05/06/2025 8:03 AM CDT Expected Values for INR: DVT/PE Goal INR 2.5; range 2.0 - 3.0 Valve Replacement Tissue Goal INR 2.5; range 2.0 - 3.0 Valve Replacement Mechanical Goal INR 3.0; range 2.5 - 3.5 POST-MO Goal INR 2.5; range 2.0 - 3.0 or Goal INR 3.0; range 2.5 - 3.5 Atrial Fibrillation Goal INR 2.5; range 2.0 - 3.0 Ischemic Stroke Goal INR 2.5; range 2.0 - 3.0 Zabrina Bynum PA-C HEMATOLOGY ORDERABLES Final Result Performing Organization Address [facility] Co de Phone Number [facility] [employer] [facility] # [id number] [facility] [address] [place] [address] * MAGNESIUM LEVEL (05/06/2025 7:39 AM CDT) MAGNESIUM 2.2 1.6 - 2.6 mg/dL 05/06/2025 8:19 AM CDT [facility] [employer] [facility] Blood Venipuncture / Unknown 05/06/2025 7:39 AM CDT 05/06/2025 7:46 AM CDT Zabrina Bynum PA-C CHEMISTRY ORDERABLES Final Result Performing Organization Address [facility] Co de Phone Number [facility] [employer] [facility] CLIA # [id number] [facility] [address] * NC ANES INSERT ENDOTRACHEAL AIRWAY (05/04/2025 12:24 PM CDT) Narrative Ian Odonnell CRNA - 05/04/2025 12:24 PM CDT Ian Odonnell CRNA 05/04/2025 12:30 PM Airway Date/Time: 05/04/2025 12:24 PM Location: Other [facility] Non OR Location: GI Plan: elective intubation Patient Identity Confirmed by: Verbally with patient Airway: not difficult Staffing Performed: MICHAELLE/MIESHA Authorized by: Ha Blancas MD Performed by: [...] Additional Procedure Information: atraumatic and dentition unchanged us Ha Blancas MD PROCEDURE/MINOR SURGICAL ORDE NATALIE [...] resolution. 3. Advanced pulmonary emphysema. Thais Shaw NP CT ORDERABLES Final Result * PTH INTACT (04/27/2025 6:21 AM CDT) PTH INTACT 43.7 17.9 - 58.6 pg/mL 04/27/2025 7:01 AM CDT [facility] Blood Venipuncture / Unknown 04/27/2025 6:21 AM CDT 04/27/2025 6:28 AM CDT us Liset Danny Stewart ARCHER CHEMISTRY ORDERABLES Final Resu lt Performing Organization Address City/[facility] Co de Phone Number [facility] CLIA # [id number] [address] [address] * EXTRA TUBE (URINE ROSAS) (04/26/2025 11:40 AM CDT) Urine URINE SPECIMEN OBTAINED BY CLEAN CATCH PROCEDURE / Unknown Collection / Unknown 04/26/2025 11:40 AM CDT 04/26/2025 12:00 PM CDT Liset Danny Stewart ARCHER URINE ORDERABLES Final Result Performing Organization Address [facility] Phone Number [facility] CLIA # [id number] [address] [address] * (ABNORMAL) URINALYSIS WITH REFLEX MICROSCOPIC (04/26/2025 11:40 AM CDT) COLOR UA Colorless(A ) Pale to Dark Yellow 04/26/2025 12:07 PM CDT [facility] CLARITY UA Clear Clear 04/26/2025 12:07 PM T [facility] SPECIFIC GRAVITY UA 1.009 1.003 - 1.035 04/26/2025 12:07 PM T [facility] PH UA 5.5 5.0 - 8.0 04/26/2025 12:07 PM T [facility] LEUKOCYTE ESTERASE UA Negative Negative 04/26/2025 12:07 PM T [facility] NITRITE UA Negative Negative 04/26/2025 12:07 PM T [facility] PROTEIN UA Negative Negative 04/26/2025 12:07 PM T [facility] GLUCOSE UA Negative Negative 04/26/2025 12:07 PM T [facility] KETONES UA Negative Negative 04/26/2025 12:07 PM CDT [facility] UROBILINOGEN UA <2.0 <2.0 mg/dL 12:07 PM CDT [facility] BILIRUBIN UA Negative Negative 04/26/2025 12:07 PM CDT [facility] BLOOD UA Negative Negative 04/26/2025 12:07 PM CDT [facility] Urine URINE SPECIMEN OBTAINED BY CLEAN CATCH PROCEDURE / Unknown Collection / Unknown 04/26/2025 11:40 AM CDT 04/26/2025 12:00 PM CDT Liset William DO URINE ORDERABLES Final Result Performing Organization Address [facility] Co de Phone Number [facility] CLIA # [id number] [address] [address] [place] [address] * BLOOD CULTURE (04/26/2025 9:10 AM CDT) Only the most recent of2 resultswithin the time period is included. Pathologist [facility] BLOOD CULTURE No growth 05/01/2025 11:28 AM CDT [facility] Blood (Peripheral) Venipuncture / Unknown 04/26/2025 9:10 AM CDT 04/26/2025 9:30 AM CDT Edwin Beauchamp MD MICROBIOLOGY - GENERA L ORDERABLES Final Result Performing Organization Address City/[facility]/ZIP Co de Phone Number [facility] CLIA # [id number] [address] [address] [place] [address] * (ABNORMAL) VITAMIN D 25 HYDROXY (04/26/2025 9:04 AM CDT) VITAMIN D TOTAL (25OH) 27(L) 30 - 100 ng/mL 04/26/2025 11:42 AM CDT [facility] Blood Venipuncture / Unknown 04/26/2025 9:04 AM CDT 04/26/2025 9:31 AM CDT Narrative [facility] - 04/26/2025 11:42 AM CDT Interpretive Data Chart: Deficient: 0 - 20 ng/mL Insufficient: 21 - 29 ng/mL Sufficient: 30 - 100 ng/mL Increased Risk of Hypercalciuria: >100 ng/ml Toxic: >150 ng/ml us Liset William DO CHEMISTRY ORDERABLES Final Resu lt Performing Organization Address City/[facility]/ZIP Co de Phone Number [facility] CLIA # [id number] [address] [address] [place] [address] * (ABNORMAL) POC GLUCOSE (04/25/2025 10:21 AM CDT) Only the most recent of5 resultswithin the time period is included. GLUCOSE POC 112(H) 74 - 99 mg/dL 04/25/2025 10:21 AM CDT [facility] SPECIMEN SOURCE, GLUCOSE POC Arterial 04/25/2025 10:21 AM CDT [facility] Blood, whole 04/25/2025 10:2 1 AM CDT 04/25/2025 5:54 PM CDT Edwin Beauchamp MD POINT OF CARE TESTING Final Result Performing Organization Address [facility] [facility]/ZIP Co de Phone Number [facility] CLIA # [id number] [address] [address] [place], [place] [address] * (ABNORMAL) BLOOD GAS ARTERIAL (04/25/2025 8:22 AM CDT) PH BLOOD POC 7.38 7.35 - 7.45 04/25/2025 8:22 AM CDT [facility] PCO2 POC 33(L) 35 - 45 mm Hg 04/25/2025 8:22 AM [facility] PO2 POC 188(H) 80 - 105 mm Hg 04/25/2025 8:22 AM [facility] HCO3 (CALC) POC 20(L) 22 - 26 mmol/L 04/25/2025 8:22 AM [facility] HEMOGLOBIN POC 15.7 12.0 - 18.0 g/dL 04/25/2025 8:22 AM [facility] BASE EXCESS POC -6(L) -2 - 3 mmol/L 04/25/2025 8:22 AM [facility] O2 SATURATION POC 100(H) 95 - 98 % 04/25/2025 8:22 AM [facility] SODIUM POC 124(L) 138 - 146 mmol/L 04/25/2025 8:22 AM [facility] POTASSIUM POC 5.4(H) 3.5 - 4.9 mmol/L 04/25/2025 8:22 AM [facility] HEMATOCRIT POC 47 38 - 51 % 04/25/2025 8:22 AM [facility] PH TEMP CORRECT 7.38 7.35 - 7.45 04/25/2025 8:22 AM [facility] PCO2 TEMP CORRECT 33(L) 35 - 45 mm Hg 04/25/2025 8:22 AM [facility] PO2 TEMP CORRECT 188(H) 80 - 105 mm Hg 04/25/2025 8:22 AM [facility] SPECIMEN SOURCE, GASES POC Arterial 04/25/2025 8:22 AM [facility] CALCIUM IONIZED POC 4.6(L) 4.8 - 5.2 mg/dL 04/25/2025 8:22 AM [facility] TCO2 (CALC) POC 21(L) 23 - 27 mmol/L 04/25/2025 8:22 AM [facility] PUNC SITE POC ART PUNCT 04/25/2025 8:22 AM CDT [facility] Blood, arterial 04/25/2025 8 :22 AM CDT 04/25/2025 8:24 AM CDT us Maxine Alvarado MD ABG ORDERABLES Final Result Performing Organization Address [facility] Co de Phone Number [facility] CLIA # [id number] [address] [facility] [place] [address] * (ABNORMAL) TROPONIN 6 HR, 5TH GEN (04/25/2025 5:27 AM CDT) TROPONIN T, 6 HR 5TH GEN 28(H) <=15 ng/L 04/25/2025 6:46 AM CDT [facility] Comment:Hemolysis can falsel y decrease Troponin quantitation. DELTA 6HR TROPONIN T 8 See Interp. 04/25/2025 6:46 AM CDT [facility] Blood Venipuncture / Unknown 04/25/2025 5:27 AM CDT 04/25/2025 5:50 AM CDT Narrative [facility] - 04/25/2025 6:46 AM CDT Troponin elevated. Delta indeterminate. Delay in collection of timed specimen beyond recommended collection interval. Results must be interpreted in clinical context. us Dagoberto Lenz DO CHEMISTRY ORDERABLES Final R esult Performing Organization Address [facility] Co de Phone Number [facility] CLIA # [id number] [id number] [place] [address] * (ABNORMAL) TROPONIN 2 HR, 5TH GEN (04/24/2025 11:34 PM CDT) TROPONIN T, 2 HR 5TH GEN 22(H) <=15 ng/L 04/25/2025 12:15 AM CDT [facility] DELTA 2HR TROPONIN T 2 See Interp. 04/25/2025 12:15 AM CDT [facility] Blood Venipuncture / Unknown 04/24/2025 11:34 PM CDT 04/24/2025 11:41 PM CDT [facility] - 04/25/2025 12:15 AM CDT Troponin elevated. Delta not changing. us Dagoberto Lenz DO CHEMISTRY ORDERABLES Final R esult Performing Organization Address [facility] Co de Phone Number [facility] CLIA # [id number] [address] [address] [place], [place] [address] * (ABNORMAL) TROPONIN BASELINE, 5TH GEN (04/24/2025 9:39 PM CDT) TROPONIN T, BASELINE 5TH GEN 20(H) <=15 ng/L 04/24/2025 10:26 PM CDT [facility] Blood Venipuncture / Unknown 04/24/2025 9:39 PM CDT 04/24/2025 9:54 PM CDT [facility] - 04/24/2025 10:26 PM CDT Troponin elevated. us Dagoberto Lenz DO CHEMISTRY ORDERABLES Final R ult Performing Organization Address [facility] Co de Phone Number [facility] CLIA # [id number] [address] [address] from Last 3 Months Insurance [place]ICA[place] Advance Directives For more information, please contact: [phone] * Full Code (Latest Code Status on File) Date Activated Date Inactivated Comments 04/24/2025 2:44 PM 05/26/2025 12:59 PM
--- OUTSIDE RECORDS SUMMARY | 2025-07-23 17:29 | XMS_ITS | Clinical Summary ---
Author Organization [facility] Address [address] [place] [address] Phone Care Team Providers Care Stationary Engineer Name Role Phone Nicolasa Dexter Primary Care Provider [phone] Allergies No known active allergies Medications lisinopriL (Prinivil, Zestril) 20 mg tablet Take 20 mg by mouth 1 (one) time each day. 03/30/2022 Active cloNIDine (Catapres) 0.1 mg tablet Take 0.1 mg by mouth 2 (two) times a day. 03/30/2022 Active Farxiga 10 mg Take 10 mg by mouth 1 (one) time each day. 03/20/2022 Active Social History Tobacco Use Types Packs/Day Years Used Date Smoking Tobacco: Every Day Cigarettes Smokeless Tobacco: Never Alcohol Use Standard Drinks/Week Comments Never 0 (1 standard drink = 0.6 oz pur e alcohol) Sex and Gender Information Value Date Recorded Sex Assigned at Not on file Legal Sex Male 9:50 AM CDT Gender Identity Not on file Sexual Orientation Not on file Last Filed Vital Signs Vital Sign Reading Time Taken Comments Blood Pressure 144/92 04/10/2022 2:40 PM CDT Pulse 74 04/10/2022 2:40 PM CDT Temperature 36.8 C (98.2 F) 04/10/2022 2:40 PM CDT Respiratory Rate - - Oxygen Saturation - - Inhaled Oxygen Concentration - - Weight 64 kg (141 lb 3.2 oz) 04/10/2022 2:40 PM CDT Height 177.8 cm (5' 10 ) 04/10/2022 2:40 PM CDT Body Mass Index 20.26 04/10/2022 2:40 PM CDT Plan of Treatment Health Maintenance Due Date Last Done Comments CT Colonography 1965 Colonoscopy 1965 Colorectal Cancer Screening 1965 FIT-DNA 1967 FIT 1967 FOBT 1965 Lipid Panel 1965 Sigmoidoscopy 1967 MMR Vaccines (1 of 1 - Stand chong series) 02/10/1968 DTaP,Tdap,and Td Vaccines (1 - Tdap) 1974 Varicella Vaccines (1 of 2 - 13+ 2-dose series) 02/10/1980 Depression Screening 1985 Social Drivers of Health (SDoH) 1985 Hepatitis B Vaccines (1 of 3 - 19+ 3-dose series) 1986 Pneumococcal Vaccines: 50+ Y ears (1 of 1 - PCV) 2017 Zoster Vaccines (1 of 2) 2017 COVID-19 Vaccine (1 - 2023-2 5 season) 2025 Influenza Vaccine (#1) 2025 RSV Vaccines (1 - 1-dose 75+ series) 2042 HIB Vaccines Aged Out No longer eligi ble based on patient's age to complete this topic HPV Vaccines Aged Out No longer eligi ble based on patient's age to complete this topic Hepatitis A Vaccines Aged Out No long er eligible based on patient's age to complete this topic IPV Vaccines Aged Out No longer eligi ble based on patient's age to complete this topic Meningococcal B Vaccine Aged Out No l onger eligible based on patient's age to complete this topic Meningococcal Vaccine Aged Out No edda nnamdi eligible based on patient's age to complete this topic Rotavirus Vaccines Aged Out No longer eligible based on patient's age to complete this topic Insurance Dr [place], [place] [id number] [place] Care Teams Stationary Engineer Relationship Specialty Start Date End Date Nicolasa Dexter [address] [place], [place] [address] PCP - General 02/19/22
--- NOTE | 2025-07-23 17:41 | ED_ITS ---
HPI - Back Pain/Injury 2 General: Chief Complaint: Back Pain/Injury Stated Complaint: severe back pain right flank History of Present Illness: Patient is a 60-year-old gentleman with history HTN, presents to the emergency room due to back pain. This is more right flank pain. He has hesitancy with urination. No other urinary symptoms. He has never had pain quite like this. It started approximately 4-6 hours ago. No recent illness. No fevers. Mild nausea without emesis. No gait instability. No sensation changes. Associated symptoms: Reports abdominal pain and nausea; Deny dysuria, fever(s) or vomiting Related Data Home Medications ?Medication ?Instructions ?Recorded ?Confirmed gabapentin 100 mg capsule 100 mg PO TID 06/29/2506/29 Previous Rx's ?Medication ?Instructions ?Recorded lisinopril 40 mg tablet 40 mg PO DAILY #30 tabs 10/20 umeclidinium 62.5 mcg-vilanterol 1 inh inhalation SAVANA Y #60 ea 06/21/25 25 mcg/actuation powdr for inhalation (Anoro Ellipta) albuterol sulfate 90 mcg/actuation 1 inh inhalation QI D PRN shortness 07/12/25 aerosol inhaler of breath or wheezing #8.5 g ryan methocarbamol 750 mg tablet 750 mg PO Q8H PRN muscle s pasm #30 07/23/25 tabs Allergies Allergy/AdvReac Type Severity Reaction Status Date / Time No Known Allergies Allergy Verified 06/29/25 11:03 Review of Systems 2 General: Reports: 10 or more systems reviewed and unremarkable except in HPI and below Const: Denies: fever(s) Eyes: Denies: change in vision ENMT: Denies: throat pain Card: Denies: chest pain, palpitations or dyspnea on exertion Resp: Denies: dyspnea, productive cough, non-productive cough or wheezing GI: Reports: abdominal pain and nausea; Denies: vomiting : Reports: flank pain and urinary frequency; Denies: difficulty urinating or dysuria Musc: Denies: neck pain, back pain or joint pain Skin/Breast: Denies: rash or new lesions Neuro: Denies: headache(s), numbness in extremities or weakness in extremities Psych: Denies: anxiety or depression PFS ED 2 PFSH: Medical History (Updated 07/23/25 @ 20:20 by VENITA Hanson) Pneumothorax Severe tobacco use disorder CKD stage 3b, GFR 30-44 ml/min Smoking addiction Bilateral kidney masses Seen on chest CT 12/20/2023, US Renal ordered 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 Social History Smoking and tobacco/nicotine status: current every day tobacco/nicotine user cigarettes Packs smoked per day: 1.5 Years cigarettes smoked: 40 [ Other cigarette details: Started at 19] Quit status (tobacco/nicotine): not considering quitting Second hand smoke exposure: No Alcohol intake: former Substance/Drug Use: never Highest education level completed: 8th Grade Physical Exam 2 Const: COMMON NORMALS: no acute distress, average body habitus, patient oriented x3, no limitations, healthy appearing and well nourished HENMT: COMMON NORMALS: normocephalic, atraumatic, hearing grossly normal bilaterally, external ears normal and oropharynx normal HEAD & SCALP: n ormocephalic and atraumatic EXTERNAL EAR: Yes external ears normal Neck/C-Spine: COMMON NORMALS: full ROM, no lymphadenopathy, supple and no meningeal signs Lymph: LYMPHATIC: no lymphadenopathy noted Chest: COMMONS NORMALS: normal inspection of the chest and normal palpation of entire chest wall Resp: COMMON NORMALS: normal respiratory effort, No retractions and clear to auscultation bilaterally AUSCULTATION: clear to auscultation bilaterally Cardio: COMMON NORMALS: regular rate and regular rhythm RATE: regular rate RHYTHM: regular rhythm GI: COMMON NORMALS: Normal to inspection, nondistended, normoactive bowel sounds present, Soft to palpation, non-tender and No hepatosplenomegaly present PALPATION: Yes Soft to palpation and Yes No hepatosplenomegaly present : BLADDER/KIDNEY EXAM: Yes CVA tenderness on the right Back/Pelvis: COMMON NORMALS: thoracic and lumbar spine normal to inspection GENERAL BACK: Yes CVA tenderness Extremity: COMMON NORMALS: normal to inspection, full ROM, capillary refill normal, no joint enlargement and no clubbing, cyanosis or edema Neuro: COMMON NORMALS: patient oriented x3 MENINGEAL SIGNS: Yes no meningeal signs Psych: COMMON NORMALS: mental status grossly normal, Normal thought process present, cooperative, normal affect, speech normal and activity/motor behavior normal SPEECH: Yes normal speech THOUGHT PROCESS: Normal thought process present Course 2 Reevaluation(s): Reevaluation #1: Doing well, sitting up on his. He states is worse with movement. CT is pending. Reevaluation #2: Patient declined IM Toradol and Norflex due to I am scared of needles. Changed to Flexeril and Benadryl by mouth Vital Signs: Vital signs: Vital Signs Temperature 98.6 F 07/23/25 17:22 Pulse Rate 86 07/23/25 20:33 Respiratory Rate 16 07/23/25 17:22 Blood Pressure 160/104 07/23/25 20:33 Pulse Oximetry 97 07/23/25 20:33 Oxygen Delivery Me thod Room Air 07/23/25 20:00 MDM - Back Pain/Injury Medical Decision Making Patient is 60-year-old male with complaints of right flank pain. He had minimal hematuria in urine analysis, will check a CT of his abdomen pelvis to rule out renal colic. Medical Records I reviewed the patient's medical records. Labs I reviewed the patient's lab results. 07/23/25 18:03 07/23/25 18:03 Radiology Impressions Abdomen/Pelvis CT 07/23/25 18:48 IMPRESSION: 1. No acute intra-abdominal or intrapelvic abnormality appreciated. 2. Retained stone lower pole left kidney. No hydronephrosis or ureteral stone appreciated. 3. Multiple bilateral renal masses several of which appear to be simple cysts. 6.1 x 4.5 cm exophytic mass mid left kidney of intermediate attenuation and similar-appearing 2.2 cm mass at the upper pole of the left kidney which are indeterminate. A follow-up renal ultrasound is recommended. Alternatively, an MRI of the kidneys with and without intravenous contrast could be performed for a more complete evaluation of the renal masses. 4. Normal appendix right lower quadrant. 5. Other chronic findings above. COMMENTS: Consistent with the [employer]'s Incidental Findings Committee white paper (J Am Tim Radiol 2018): Any incidental renal lesion less than 1 cm or classified as too small to characterize, or any incidental cystic renal lesion characterized as simple-appearing, is likely benign. No follow-up imaging is recommended for these lesions per consensus recommendations based on imaging criteria. Laboratory Results WBC 12.83 10^3/uL (3.29-11.43) H 07/23/25 18:03 RBC 4.97 10^6/uL (3.85-5.65) 07/23/25 18:03 Hgb 14.70 g/dL (11.27-16.99) 07/23/25 18:03 Hct 44.8 % (37-53) 07/23/25 18:03 MCV 90.1 fl (82-101) 07/23/25 18:03 MCH 29.6 pg (27-33) 07/23/25 18:03 MCHC 32.8 g/dL (30-55) 07/23/25 18:03 RDW 15.7 % (12.1-15.1) H 07/23/25 18:03 Plt Count 323 10^3/cmm (157-399) 07/23/25 18:03 MPV 10.8 fL (7.4-10.4) H 07/23/25 18:03 Neut % (Auto) 64.6 % 07/23/25 18:03 Lymph % (Auto) 24.3 % 07/23/25 18:03 [place] % (Auto) 9.2 % 07/23/25 18:03 Eos % (Auto) 0.5 % 07/23/25 18:03 Baso % (Auto) 0.9 % 07/23/25 18:03 Neut # (Auto) 8.29 10^3/uL (1.8-7.7) H 07/23/25 18:03 Lymph # (Auto) 3.1 10^3/uL (0.8-4.8) 07/23/25 18:03 [place] # (Auto) 1.2 10^3/uL (0.2-0.9) H 07/23/25 18:03 Eos # (Auto) 0.1 10^3/uL (0.0-0.8) 07/23/25 18:03 Baso # (Auto) 0.1 10^3/uL (0.0-0.1) 07/23/25 18:03 Nucleated RBC % (auto) 0 % 07/23/25 18: Nucleated RBCs # 0.0 /100WBC 07/23/25 18:03 Sodium 135 mmol/L (136-145) L 07/23/25 18:03 Potassium 5.0 mmol/L (3.5-5.1) 07/23/25 18:03 Chloride 99 mmol/L (98-107) 07/23/25 18:03 Carbon Dioxide 23 mmol/L (22-29) 07/23/25 18:03 Anion Gap 18.0 (5-19) 07/23/25 18:03 BUN 38 mg/dL (6-20) H 07/23/25 18:03 Creatinine 2.0 mg/dL (0.7-1.2) H 07/23/25 18:03 GFR Calculation 34.5 mL/min (90-130) L 07/23/25 18:03 Glucose 101 mg/dL (65-115) 07/23/25 18:03 Calculated Osmolality 289 mOsm/kg (285-295) 07/23/25 18:03 Calcium 9.3 mg/dL (8.5-10.5) 07/23/25 18:03 Total Bilirubin 0.2 mg/dL (0.15-1.2) 07/23/25 18:03 AST 26 U/L (0-40) 07/23/25 18:03 ALT 25 U/L (0-41) 07/23/25 18:03 Alkaline Phosphatase 90 U/L (40-130) 07/23/25 18:03 Total Protein 7.4 g/dL (6.6-8.7) 07/23/25 18:03 Albumin 4.5 g/dL (3.5-5.2) 07/23/25 18:03 Globulin 2.9 g/dL (1.3-4.6) 07/23/25 18:03 Lipase 45 U/L (13-60) 07/23/25 18:03 Urine Color Yellow (Yellow) 07/23/25 18:03 Urine Appearance Clear (CLEAR) 07/23/25 18:03 Urine pH 5.5 (5-7) 07/23/25 18:03 Ur Specific Blanch 1.014 (1.005-1.030) 07/23/25 18:03 Urine Protein 1+ (Negative) A 07/23/25 18:03 Urine Glucose (UA) Negative (Normal) 07/23/25 18:03 Urine Ketones Negative (Negative) 07/23/25 18:03 Urine Blood Trace (Negative) A 07/23/25 18:03 Urine Nitrate Negative (Negative) 07/23/25 18:03 Urine Bilirubin Negative (Negative) 07/23/25 18:03 Urine Urobilinogen 0.2 mg/dL (Negative) 07/23/25 18:03 Ur Leukocyte Esterase Negative (Negative) 07/23/25 18:03 Urine RBC 0-2 /hpf (0-2) 07/23/25 18:03 Urine WBC 0-5 /hpf (0-5) 07/23/25 18:03 Ur Squamous Epith Cells 0-5 /hpf (0-5) 07/23/25 18:03 Urine Bacteria None seen /hpf (NONE) 07/23/25 18:03 Hyaline Casts 2.46 /lpf 07/23/25 18:03 All radiology interpretation(s) finalized by discharge ED provider radiology interpretation(s): Colitis, right. EKG Data EKG 1: Interpretation: Normal sinus rhythm, left axis, no ST segment elevation Discharge Plan Discharge Patient Disposition: Home Clinical Impression: Bilateral kidney masses Abdominal pain Qualifiers: Abdominal location: right upper quadrant Qualified Code(s): R10.11 - Right upper quadrant pain Condition: Stable Prescriptions: New methocarbamol 750 mg tablet 750 mg PO Q8H PRN (Reason: muscle spasm) Qty: 30 0RF No Action gabapentin 100 mg capsule 100 mg PO TID lisinopril 40 mg tablet 40 mg PO DAILY Qty: 30 2RF Anoro Ellipta 62.5-25 mcg/actuation blister with device 1 inh inhalation DAILY Qty: 60 1RF albuterol sulfate 90 mcg/actuation HFA aerosol inhaler 1 inh inhalation QID PRN (Reason: shortness of breath or wheezing) Qty: 8.5 1RF Discharge Orders: Discharge ED (Routine); Ordered 07/23/25 Ordered By: Bhavna Stone Referrals: Rocky Fuentes MD [Primary Care Provider, Family Practice] Discharge Diet: Clear Liquid Patient Instructions: Clear Liquid Diet, Abdominal Pain (ED), Patient Portal & Dima Instructions Activity Restrictions/Additional Instructions: - Clear liquid diet only x 48 hours - If you still have abdominal pain at 48 hours, continue clear liquid diet. Then you may advance to a full liquid, then bland diet. -Tylenol scheduled 3 times a day will help with pain. At the pharmacy: Robaxin/methocarbamol is a powerful muscle relaxer. You may cut in half to help with this issue. -You had an incidental radiological finding: Nodules on your bilateral kidneys. This is considered nonemergent, and radiologist is requesting your primary care doctor order a ultrasound of your kidneys outpatient. Please schedule an appointment with your doctor to set this up. - Please schedule appointment with your primary care physician to set up referral for outpatient colonoscopy - What else will help with your abdominal pain: Adding a probiotic. You do have a moderate amount of stool in your colon. - Return to ED with worsening pain, nausea, vomiting, fever greater than 100.4 ?F Thank you for choosing [facility] for your healthcare needs today. You have been screened and evaluated and felt safe for discharge. Health conditions do change or evolve sometimes and as such it is important that you follow up with your Primary Doctor to be re checked, 3-5 days is a general good time frame for follow up. You are always welcome to return to the ED for re assessment if your symptoms are worsening or you have new concerns Print Language: Japanese Coding Level of Care Code ED Balancing Machine Operator for 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
--- NOTE | 2025-07-23 17:42 | ECG_ITS ---
[facility] Test Date: 2025-07-23 Pat Name: Crispin Yan Department: Room: Gender: Male Contact Lens Fitter: : 1965 Requested By: Bhavna Stone Order Number: [id number] Comfort MD: Luke Ross M.D. Measurements Intervals Morton Rate: 81 P: 74 IA: 144 QRS: -19 QRSD: 105 T: 79 QT: 339 QTc: 394 Interpretive Statements SINUS RHYTHM INCOMPLETE RIGHT BUNDLE BRANCH BLOCK [90+ ms QRS DURATION, TERMINAL R IN V1/V2, 40+ ms S IN I/aVL/V4/V5/V6] SEPTAL MYOCARDIAL INFARCTION , OF INDETERMINATE AGE [40+ ms Q WAVE IN V1/V2] Compared to ECG 04/24/2025 09:56:15 NO SIGNIFICANT CHANGE Electronically Signed On 07-24-2025 15:38:[address] DESIGN ENGINEER by Luke Ross M.D. [email or web address]
[2025-07-23 18:12] VITALS: BP 159/107; PULSE 94; O2SAT 97
[2025-07-23 18:13] LABS: Glucose Urine UA Negative (Normal); Nitrate Urine Negative (Negative); Specific Gravity, Urine 1.014 (1.005-1.030)
[2025-07-23 18:18] LABS: Add Urine Microscopic? YES
[2025-07-23 18:27] LABS: Hematocrit 44.8 % (37-53); Hemoglobin 14.70 g/dL (11.27-16.99); Mean Corpuscular HGB Conc 32.8 g/dL (30-55); Mean Corpuscular Hemoglobin 29.6 pg (27-33); Mean Corpuscular Volume 90.1 fl (82-101); Nucleated Red Blood Cells % 0 %; Platelet Count 323 10^3/cmm (157-399); Red Blood Count 4.97 10^6/uL (3.85-5.65); White Blood Count 12.83 10^3/uL (3.29-11.43)
[2025-07-23 18:48] LABS: Alanine Aminotransferase 25 U/L (0-41); Albumin Level 4.5 g/dL (3.5-5.2); Alkaline Phosphatase 90 U/L (40-130); Anion Gap 18.0 (5-19); Aspartate Amino Transferase 26 U/L (0-40); Blood Urea Nitrogen 38 mg/dL (6-20); Calcium 9.3 mg/dL (8.5-10.5); Carbon Dioxide 23 mmol/L (22-29); Chloride 99 mmol/L (98-107); Globulin 2.9 g/dL (1.3-4.6); Glucose 101 mg/dL (65-115); Lipase 45 U/L (13-60); Osmolality Calculated 289 mOsm/kg (285-295); Potassium 5.0 mmol/L (3.5-5.1); Sodium 135 mmol/L (136-145); Total Protein 7.4 g/dL (6.6-8.7)
--- NOTE | 2025-07-23 18:48 | CTR_ITS ---
PROCEDURE INFORMATION: Exam: CT Abdomen And Pelvis Without Contrast Exam date and time: 07/23/2025 7:01 PM Age: 60 years old Clinical indication: Abdominal pain; Right; Prior surgery; Surgery date: 6+ months; Surgery type: Hernia repair; C/O RT flank and low back pain. ; Additional info: Flank pain, renal colic TECHNIQUE: Imaging protocol: Computed tomography of the abdomen and pelvis without contrast. Radiation optimization: All CT scans at this facility use at least one of these dose optimization techniques: automated exposure control; mA and/or kV adjustment per patient size (includes targeted exams where dose is matched to clinical indication); or iterative reconstruction. COMPARISON: US renal BI* [id number] 01/03/2024 11:13 AM RADIATION DOSE METRICS: Total DLP (mGy-cm): 393.11 FINDINGS: Lungs: There is subpleural cystic change posteriorly in the right lower lobe. There is bandlike atelectasis and scarring within the left lower lobe with pleural thickening and calcifications present. Subpleural calcified granuloma posterolateral left lower lobe. Liver: No abnormality of the unenhanced liver is appreciated. Gallbladder and biliary ducts: No calcified gallstones or gallbladder wall thickening appreciated. Normal common duct. Pancreas: Normal. No ductal dilation. Spleen: Normal. No splenomegaly. Adrenal glands: Normal. No mass. Kidneys and ureters: Normal-size kidneys. 1.2 cm retained stone lower pole left kidney. No hydronephrosis or ureteral stone appreciated. There are multiple bilateral renal masses several of which are of low attenuation with Hounsfield unit measurements of less than 20. There is a 6.1 x 4.5 cm oval exophytic mass involving the mid left kidney with Hounsfield unit measurements of 45. There is a 2.2 cm mass with Hounsfield unit measurements of 39 at the upper pole of the left kidney. There is a high density 1.1 cm mass at the medial cortex of the left kidney which is probably a hemorrhagic cyst. There also appears to be a hemorrhagic cyst in the lateral cortex of the lower right kidney measuring in the 9 mm range. There are some small calcifications associated with a few of the renal masses. No significant perinephric stranding. Stomach and bowel: There is no distension of the stomach or gastric wall abnormality appreciated. There is no significant small bowel distension appreciated. The colon is tortuous and is gas and stool-filled and shows no definite abnormality. Appendix: Normal appendix right lower quadrant. Intraperitoneal space: Unremarkable. No free air. No significant fluid collection. Vasculature: Mild atherosclerotic plaquing abdominal aorta and bifurcation with no aneurysm appreciated. Lymph nodes: 2.5 x 1.6 cm oval linear area of increased attenuation abutting the anterolateral aspect of the distal esophagus which may represent a pleural-based calcification or possibly a calcified lymph node. Urinary bladder: No definite bladder wall abnormality appreciated. Reproductive: Mild prostate enlargement. Bones/joints: No acute bony abnormality is appreciated. There is a moderate-sized posterior disc protrusion at L3-L4 that is more prominent to the right of the midline that results in stdy-sd-fipdcdgd compression of the thecal sac. Soft tissues: No obstructive hernia. CT/CT kidney stone [id number] IMPRESSION: 1. No acute intra-abdominal or intrapelvic abnormality appreciated. 2. Retained stone lower pole left kidney. No hydronephrosis or ureteral stone appreciated. 3. Multiple bilateral renal masses several of which appear to be simple cysts. 6.1 x 4.5 cm exophytic mass mid left kidney of intermediate attenuation and similar-appearing 2.2 cm mass at the upper pole of the left kidney which are indeterminate. A follow-up renal ultrasound is recommended. Alternatively, an MRI of the kidneys with and without intravenous contrast could be performed for a more complete evaluation of the renal masses. 4. Normal appendix right lower quadrant. 5. Other chronic findings above. COMMENTS: Consistent with the [place]'s Incidental Findings Committee white paper (J Am Tim Radiol 2018): Any incidental renal lesion less than 1 cm or classified as too small to characterize, or any incidental cystic renal lesion characterized as simple-appearing, is likely benign. No follow-up imaging is recommended for these lesions per consensus recommendations based on imaging criteria.
[2025-07-23] MEDS: diphenhydrAMINE 12.5 mg/5 mL UDC 10 mL 25 MG PO (19:51)
[2025-07-23 20:00] VITALS: BP 160/104; PULSE 79; O2SAT 96
[2025-07-23 20:33] VITALS: BP 160/104; PULSE 86; O2SAT 97
== END 2025-07-23 20:34 | disposition home or self-care (01) ==
PROVIDERS: Emergency Medicine; Emergency Provider Physician Assistant; PCP Family Medicine
DX: N28.89 Other specified disorders of kidney and ureter (principal); R10.11 Right upper quadrant pain; F17.210 Nicotine dependence, cigarettes, uncomplicated; J44.9 Chronic obstructive pulmonary disease, unspecified; E11.22 Type 2 diabetes mellitus with diabetic chronic kidney disease; I12.9 Hypertensive chronic kidney disease with stage 1 through stage 4 chronic kidney disease, or unspecified chronic kidney disease; N18.32 Chronic kidney disease, stage 3b
CPT/HCPCS: 36415; 74176; 80053; 81001; 83690; 85025; 93005; 99284; J1200; J9999

== ENCOUNTER 2025-07-31 15:29 | Emergency (ER) | payer MEDICAID, SELFPAY ==
--- OUTSIDE RECORDS SUMMARY | 2025-07-31 15:35 | XMS_ITS | Clinical Summary ---
Author Organization [facility] Address [address] [place] [address] Phone Care Team Providers Care Chemistry Department Chair Name Role Phone Nicolasa Dexter Primary Care Provider Allergies No known active allergies Medications lisinopriL [...] Zoster Vaccines (1 of 2) 2017 COVID-19 Vaccines (1 - season) 2025 Influenza Vaccine (#1) 2025 RSV [...] to complete [place] [address] [employer] Care Teams Chemistry Department Chair Relationship Specialty Start Date End Date Nicolasa Dexter [address], [place] [phone] PCP - General 02/19/22
--- OUTSIDE RECORDS SUMMARY | 2025-07-31 15:35 | XMS_ITS | Clinical Summary ---
Author Organization [facility] Address [address] [place] [address] Phone Care Team Providers Care Water Quality Tester Name Role Phone Unavailable Primary Care Provider [...] Encounters Date Type Department Care Team Description 07/27/2025 External Device Data STL ABSTRACTION Provider, Abstract 07/13/2025 External Device Data STL ABSTRACTION Provider, Abstract 06/29/2025 External Device Data STL ABSTRACTION Provider, Abstract 06/29/2025 External Device Data STL ABSTRACTION Provider, Abstract 06/16/2025 External Device Data STL ABSTRACTION Provider, Abstract 06/15/2025 External Device Data STL ABSTRACTION Provider, Abstract 06/01/2025 External Device Data STL ABSTRACTION Provider, Abstract 05/28/2025 Orders Only [facility] HIM [address] [place] [phone] Provider, Abstract 05/28/2025 Telephone [facility] [address] [phone] Lincoln Morales Needs Appointment 05/28/2025 Telephone [facility] [address] Dontae [address] [place] [phone] Mitchell Muhammad Appointment Correction 05/26/2025 Orders Only [facility] [address] [phone] Puma Atkins MD Secondary spontaneous pneumothorax (Primary Dx) 05/25/2025 External Device Data STL ABSTRACTION Provider, Abstract 05/25/2025 External Device Data STL ABSTRACTION Provider, Abstract 05/04/2025 12:17 PM CDT Anesthesia Event [facility] Endoscopy [address] [place] [phone] Ha Blancas MD 05/04/2025 10:56 AM CDT - 05/04/2025 11:28 AM CDT Surgery [facility] Endoscopy [address] [place] [phone] Brayden Trammell MD BRONCHOSCOPY 04/24/2025 1:46 PM CDT - 05/26/2025 10:49 AM CDT Hospital Encounter [facility] 4D Surgery Heart Lung [address] 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-[id number] MB / / [id number] Description:Lt chest tube Procedures Procedure Name Priority [...] 1 VW Stat 05/04/2025 1:21 PM CDT [place] ANES INSERT ENDOTRACHEAL AIRWAY Routine 05/04/2025 12:24 [...] EKG 12-LEAD Stat 05/01/2025 3:42 AM CDT from Last 3 Months Results * TELEMETRY REPORT (05/27/2025 2:40 AM CDT) us Provider Scanning ECG ORDERABLES Final Result * XR CHEST PA OR AP 1 VW (05/26/2025 5:29 AM CDT) Only the most recent of37 resultswithin the time period is included. Anatomical [...] 4:00 AM CDT) Only the most recent of8 resultswithin the time period is included. SODIUM 136 136 - 145 mmol/L 05/26/2025 4:53 AM [facility] POTASSIUM 5.1 3.5 - 5.1 mmol/L 05/26/2025 4:53 AM [facility] CHLORIDE 105 98 - 107 mmol/L 05/26/2025 4:53 AM [facility] CO2 20(L) 22 - 29 mmol/L 05/26/2025 4:53 AM T [facility] CALCIUM 8.9 8.6 - 10.0 mg/dL 05/26/2025 4:53 AM T [facility] BUN 36(H) 6 - 20 mg/dL 05/26/2025 4:53 AM [facility] CREATININE 1.88(H) 0.67 - 1.17 mg/dL 05/26/2025 4:53 AM [facility] GLUCOSE 103(H) 74 - 99 mg/dL 05/26/2025 4:53 AM T [facility] GFR 41(L) >=60 mL/min/1. 73 sq meter 05/26/2025 4:53 AM [facility] Comment:eGFR calculated with 2020 CKD-EPI equation. Vegetarian diet, extremely high or low muscle mass, and may affect results. Cystatin C with Glomerular Filtration Rate is a suitable alternative for these patients. ANION GAP 11 9 - 20 mmol/L 05/26/2025 4:53 AM [facility] Blood Venipuncture / Unknown 05/26/2025 4:00 AM CDT 05/26/2025 4:22 AM CDT us Marie Eduardo MD CHEMISTRY ORDERABLES Final Res ult [facility] CLIA # [id number] [facility] [address] * POTASSIUM LEVEL (05/25/2025 1:34 PM CDT) Only the most recent of2 resultswithin the time period is included. POTASSIUM 4.8 3.5 - 5.1 mmol/L 05/25/2025 2:13 PM CDT [facility] Blood Venipuncture / Unknown 05/25/2025 1:34 PM CDT 05/25/2025 1:40 PM CDT us Marie Eduardo MD CHEMISTRY ORDERABLES Final Res ult [facility] CLIA # [id number] [facility] [address] * (ABNORMAL) CBC WITHOUT DIFFERENTIAL (05/25/2025 5:38 AM CDT) Only the most recent of2 resultswithin the time period is included. Pathologist [facility] WBC 9.6 4.8 - 10.8 K/uL 05/25/2025 6:10 AM T [facility] RBC 3.92(L) 4.60 - 6.20 M/uL 05/25/2025 6:10 AM T [facility] HEMOGLOBIN 11.7(L) 14.0 - 18.0 g/dL 05/25/2025 6:10 AM T [facility] HEMATOCRIT 35.1(L) 41.0 - 53.0 % 05/25/2025 6:10 AM T [facility] MCV 89.5 84.0 - 103.0 fL 05/25/2025 6:10 AM T [facility] MCH 29.8 27.0 - 34.0 pg 05/25/2025 6:10 AM T [facility] MCHC 33.3 30.0 - 35.0 g/dL 05/25/2025 6:10 AM T [facility] PLATELETS 541(H) 140 - 440 K/uL 05/25/2025 6:10 AM T [facility] MPV 9.1 8.9 - 12.8 fL 05/25/2025 6:10 AM CDT [facility] RDW 14.5 11.0 - 14.5 % 05/25/2025 6:10 AM CDT [facility] RDW-STDEV 47.8 37.0 - 54.0 fL 05/25/2025 6:10 AM T [facility] Blood Venipuncture / Unknown 05/25/2025 5:38 AM CDT 05/25/2025 6:01 AM CDT us Marie Eduardo MD HEMATOLOGY ORDERABLES Final Re sult [facility] CLIA # [id number] [address] [place] [address] * (ABNORMAL) CBC WITH DIFFERENTIAL (05/22/2025 9:40 AM CDT) Only the most recent of10 resultswithin the time period is included. WBC 12.9(H) 4.8 - 10.8 K/uL 05/22/2025 9:53 AM [facility] RBC 3.93(L) 4.60 - 6.20 M/uL 05/22/2025 9:53 AM [facility] HEMOGLOBIN 11.7(L) 14.0 - 18.0 g/dL 05/22/2025 9:53 AM [facility] HEMATOCRIT 35.8(L) 41.0 - 53.0 % 05/22/2025 9:53 AM T [facility] MCV 91.1 84.0 - 103.0 fL 05/22/2025 9:53 AM T [facility] MCH 29.8 27.0 - 34.0 pg 05/22/2025 9:53 AM T [facility] MCHC 32.7 30.0 - 35.0 g/dL 05/22/2025 9:53 AM [facility] PLATELETS 464(H) 140 - 440 K/uL 05/22/2025 9:53 AM [facility] MPV 9.1 8.9 - 12.8 fL 05/22/2025 9:53 AM [facility] RDW 14.6(H) 11.0 - 14.5 % 05/22/2025 9:53 AM [facility] RDW-STDEV 48.8 37.0 - 54.0 fL 05/22/2025 9:53 AM [facility] NEUTROPHILS 59 42 - 75 % 05/22/2025 9:53 AM [facility] LYMPHOCYTES 16(L) 24 - 44 % 05/22/2025 9:53 AM [facility] MONOCYTES 15(H) 2 - 10 % 05/22/2025 9:53 AM [facility] EOSINOPHILS 9(H) 0 - 7 % 05/22/2025 9:53 AM [facility] BASOPHILS 1 0 - 1 % 05/22/2025 9:53 AM [facility] IMMATURE GRANULOCYTES 0 0 - 2 % 05/22/2025 9:53 AM [facility] NEUTROPHIL ABSOLUTE 7.69 2.00 - 8.00 K/uL 05/22/2025 9:53 AM [facility] LYMPHOCYTE ABSOLUTE 2.05 1.20 - 4.00 K/uL 05/22/2025 9:53 AM [facility] MONOCYTE ABSOLUTE 1.88(H) 0.10 - 0.60 K/uL 05/22/2025 9:53 AM [facility] EOSINOPHIL ABSOLUTE 1.17(H) 0.00 - 0.70 K/uL 05/22/2025 9:53 AM [facility] BASOPHILS ABSOLUTE 0.08 0.00 - 0.20 K/uL 05/22/2025 9:53 AM [facility] IMMATURE GRANULOCYTES ABSOLUTE 0.05 0.00 - 0.10 K/uL 05/22/2025 9:53 AM CDT [facility] SMEAR REVIEWED: NA - Not Applicable 05/22/2025 9:53 AM T [facility] Blood Venipuncture / Unknown 05/22/2025 9:40 AM CDT 05/22/2025 9:50 AM CDT us Roel Andujar MD HEMATOLOGY ORDERABLES Final Res ult [facility] CLIA # [id number] [address] [place] [address] * (ABNORMAL) RENAL FUNCTION PANEL (05/20/2025 12:49 AM CDT) Only the most recent of4 resultswithin the time period is included. SODIUM 135(L) 136 - 145 mmol/L 05/20/2025 2:14 AM [facility] POTASSIUM 4.6 3.5 - 5.1 mmol/L 05/20/2025 2:14 AM [facility] CHLORIDE 103 98 - 107 mmol/L 05/20/2025 2:14 AM [facility] CO2 21(L) 22 - 29 mmol/L 05/20/2025 2:14 AM [facility] CALCIUM 8.8 8.6 - 10.0 mg/dL 05/20/2025 2:14 AM T [facility] BUN 31(H) 6 - 20 mg/dL 05/20/2025 2:14 AM [facility] CREATININE 1.75(H) 0.67 - 1.17 mg/dL 05/20/2025 2:14 AM [facility] GLUCOSE 102(H) 74 - 99 mg/dL 05/20/2025 2:14 AM [facility] ALBUMIN 3.3(L) 3.5 - 5.2 g/dL 05/20/2025 2:14 AM CDT [facility] PHOSPHORUS 4.7(H) 2.5 - 4.5 mg/dL 05/20/2025 2:14 AM CDT [facility] GFR 45(L) >=60 mL/min/1. 73 sq meter 05/20/2025 2:14 AM CDT [facility] Comment:eGFR calculated with 2020 CKD-EPI equation. Vegetarian diet, extremely high or low muscle mass, and may affect results. Cystatin C with Glomerular Filtration Rate is a suitable alternative for these patients. ANION GAP 11 9 - 20 mmol/L 05/20/2025 2:14 AM CDT [facility] Blood Venipuncture / Unknown 05/20/2025 12:49 AM CDT 05/20/2025 1:39 AM CDT Duc Camp MD CHEMISTRY ORDERABLES Final R esult Performing Organization Address City/State/[facility] Co de Phone Number [facility] CLIA # [id number] [address] [place] [address] * MRSA PCR RAPID SCREEN (05/18/2025 5:50 PM CDT) [facility] MRSA PCR RESULT MRSA not detected MRSA not detected 05/18/2025 7:22 PM CDT [facility] Surveillance ANTERIOR NARES SWAB / Unknown Collection / Unknown 05/18/2025 5:50 PM CDT 05/18/2025 5:56 PM CDT Narrative [facility] - 05/18/2025 7:22 PM CDT This [...] ORDER KAVITHA Final Result Performing Organization Address City/State/[facility] Co de Phone Number [facility] CLIA # [id number] [address] [facility] [place] [address] * EKG 12-LEAD (05/17/2025 12:53 PM CDT) Only the most recent of2 resultswithin the time period is included. 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 Tender: [email or web address] : 1965 Requested By: Order Number: [id number] Reading MD: Dariana Newsome Measurements Intervals [place] Rate: 92 P: 44 TX: 142 QRS: -18 QRSD: 82 T: 69 QT: 338 QTc: 417 Interpretive Statements Normal sinus rhythm Normal ECG Electronically Signed On 05-18-2025 6:39:05 CDT by Dariana Newsome Procedure Note Dariana Newsome MD - 05/18/2025 [facility] [address] [place] [address] Test Date: 2025-05-17 Pat Name: CRISPIN YAN Department: 12 Room: [address] [place] [address] Gender: Male Canal Tender: [email or web address] : 1965 Requested By: Order Number: [id number] Reading MD: Dariana Newsome Measurements Intervals [place] Rate: 92 P: 44 TX: 142 QRS: -18 QRSD: 82 T: 69 QT: 338 QTc: 417 Interpretive Statements Normal sinus rhythm Normal ECG Electronically Signed On 05-18-2025 6:39:05 CDT by Dariana Newsome us Duc Camp MD ECG ORDERABLES Final Result INTERFACE SYSTEM Refer to clinic/hospital department * PROCEDURE REPORT (05/10/2025 10:06 PM CDT) Narrative Procedure Note Brayden Trammell MD - 05/10/2025 10:06 PM CDT [facility] Pulmonology Patient Name: Crispin Yan Procedure [...] In: 12:29:47 PM Scope Out: 12:52:[address] [place] [address], [address], [place] Brayden Trammell MD PROCEDURE/MINOR SURGIC AL ORDERABLES Final Result * PT AND APTT (05/10/2025 9:26 AM CDT) PROTIME 14.3 12.7 - 14.9 Seconds 05/10/2025 9:57 AM CDT [facility] INR 1.1 0.8 - 1.2 05/10/2025 9:57 AM CDT [facility] PTT 28.9 24.8 - 37.2 seconds 05/10/2025 9:57 AM CDT [facility] Blood Venipuncture / Unknown 05/10/2025 9:26 AM CDT 05/10/2025 9:42 AM CDT Narrative [facility] - 05/10/2025 9:57 AM CDT Expected Values for INR: DVT/PE Goal INR 2.5; range 2.0 - 3.0 Valve Replacement Tissue Goal INR 2.5; range 2.0 - 3.0 Valve Replacement Mechanical Goal INR 3.0; range 2.5 - 3.5 POST-GA Goal INR 2.5; range 2.0 - 3.0 [...] Zabrina Bynum PA-C HEMATOLOGY ORDERABLES Final Result [facility] # [id number] [address] [place] [address] * (ABNORMAL) COMPREHENSIVE METABOLIC PANEL (05/10/2025 9:26 AM CDT) [facility] SODIUM 137 136 - 145 mmol/L 05/10/2025 10:16 AM T [facility] POTASSIUM 4.8 3.5 - 5.1 mmol/L 05/10/2025 10:16 AM CDT [facility] CHLORIDE 101 98 - 107 mmol/L 05/10/2025 10:16 AM CDT [facility] CO2 25 22 - 29 mmol/L 05/10/2025 10:16 AM CDT [facility] CALCIUM 9.0 8.6 - 10.0 mg/dL 05/10/2025 10:16 AM CDT [facility] BUN 37(H) 6 - 20 mg/dL 05/10/2025 10:16 AM CDT [facility] CREATININE 1.73(H) 0.67 - 1.17 mg/dL 05/10/2025 10:16 AM CDT [facility] GLUCOSE 108(H) 74 - 99 mg/dL 05/10/2025 10:16 AM CDT [facility] TOTAL PROTEIN 5.9(L) 6.4 - 8.3 g/dL 05/10/2025 10:16 AM CDT [facility] ALBUMIN 3.5 3.5 - 5.2 g/dL 05/10/2025 10:16 AM CDT [facility] BILIRUBIN TOTAL 0.2 0.0 - 1.0 mg/dL 05/10/2025 10:16 AM CDT [facility] ALKALINE PHOSPHATASE 72 40 - 129 U/L 05/10/2025 10:16 AM CDT [facility] AST 27 10 - 50 U/L 05/10/2025 10:16 AM CDT [facility] ALT 35 <=50 U/L 05/10/2025 10:16 AM T [facility] GFR 45(L) >=60 mL/min/1. 73 sq meter 05/10/2025 10:16 AM T [facility] Comment:eGFR calculated with 2020 CKD-EPI equation. Vegetarian diet, extremely high or low muscle mass, and may affect results. Cystatin C with Glomerular Filtration Rate is a suitable alternative for these patients. ANION GAP 11 9 - 20 mmol/L 05/10/2025 10:16 AM CDT [facility] Blood Venipuncture / Unknown 05/10/2025 9:26 AM CDT 05/10/2025 9:42 AM CDT Zabrina Bynum PA-C CHEMISTRY ORDERABLES Final Result [facility] CLIA # [id number] [facility] [address] [place] [address] * IR TUBE PLACEMENT (05/06/2025 10:45 AM [...] over the wire, and a new 14 Moldovan resolved pigtail catheter was advanced to the [...] over the wire, and a new 14 Moldovan resolved pigtail catheter was advanced to the [...] - 14.9 Seconds 05/06/2025 8:03 AM CDT [facility] [employer] [facility] INR 1.0 0.8 - 1.2 05/06/2025 8:03 AM CDT [facility] [employer] [facility] Blood Venipuncture / Unknown 05/06/2025 7:39 AM CDT 05/06/2025 7:46 AM CDT Narrative [facility] [employer] [facility] - 05/06/2025 8:03 AM CDT Expected Values for INR: DVT/PE Goal INR 2.5; range 2.0 - 3.0 Valve Replacement Tissue Goal INR 2.5; range 2.0 - 3.0 Valve Replacement Mechanical Goal INR 3.0; range 2.5 - 3.5 POST-GA Goal INR 2.5; range 2.0 - 3.0 or Goal INR 3.0; range 2.5 - 3.5 Atrial Fibrillation Goal INR 2.5; range 2.0 - 3.0 Ischemic Stroke Goal INR 2.5; range 2.0 - 3.0 Zabrina Bynum PA-C HEMATOLOGY ORDERABLES Final Result Performing Organization Address [facility] Co de Phone Number [facility] [employer] [facility] CLIA # [id number] [address] [address] [place] [address] * MAGNESIUM LEVEL (05/06/2025 7:39 AM CDT) MAGNESIUM 2.2 1.6 - 2.6 mg/dL 05/06/2025 8:19 AM CDT [facility] [employer] [facility] Blood Venipuncture / Unknown 05/06/2025 7:39 AM CDT 05/06/2025 7:46 AM CDT Zabrina Bynum PA-C CHEMISTRY ORDERABLES Final Result Performing Organization Address [facility] de Phone Number [facility] [employer] [facility] CLIA # [id number] [address] [address] * [place] ANES INSERT ENDOTRACHEAL AIRWAY (05/04/2025 12:24 PM [...] dentition unchanged Ha Blancas MD PROCEDURE/MINOR SURGICAL OLYA ESTRADA Final Result from Last 3 Months Insurance MEDICAID [place] Advance Directives For more information, please contact: [phone] * Full Code (Latest Code Status on File) Date Activated Date Inactivated Comments 04/24/2025 2:44 PM 05/26/2025 12:59 PM
--- OUTSIDE RECORDS SUMMARY | 2025-07-31 15:35 | XMS_ITS | Encounter Summary ---
Author Organization [employer] Address 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
[2025-07-31 15:50] VITALS: BP 159/93; PULSE 93; RESP 16; TEMP 37.3; O2SAT 95; BMI 20.9
--- NOTE | 2025-07-31 16:19 | W.ED.BACK ---
HPI - Back Pain/Injury General: Chief Complaint: Back Pain/Injury Stated Complaint: back and right leg pain Time Seen by Provider: 07/31/25 16:09 Source: patient Mode of arrival: ambulatory Limitations: no limitations History of Present Illness: 60-year-old male states he has been having right sided hip and right low back pain its radiated down his thigh going on for roughly a week. States has been taking muscle relaxants with minimal relief. Pain is much worse with walking improved with rest pain is currently 4 out of 10 he denies any fevers denies any bowel or bladder incontinence. Related Data Home Medications ?Medication ?Instructions ?Recorded ?Confirmed gabapentin 100 mg capsule 100 mg PO TID 06/29/25 06/29/25 Previous Rx's ?Medication ?Instructions ?Recorded lisinopril 40 mg tablet 40 mg PO DAILY #30 tabs 04/27/25 umeclidinium 62.5 mcg-vilanterol 1 inh inhalation DAILY #60 ea 06/21/25 25 mcg/actuation powdr for inhalation (Anoro Ellipta) albuterol sulfate 90 mcg/actuation 1 inh inhalation QID PRN shortness 07/12/25 aerosol inhaler of breath or wheezing #8.5 grams methocarbamol 750 mg tablet 750 mg PO Q8H PRN muscle spasm #30 07/23/25 tabs hydrocodone 5 mg-acetaminophen 325 1 tab PO Q6H PRN pain #14 tabs 07/31/25 mg tablet prednisone 50 mg tablet 50 mg PO DAILY #5 tabs 07/31/25 Allergies Allergy/AdvReac Type Severity Reaction Status Date / Time No Known Allergies Allergy Verified 07/31/25 15:55 PFSH ED PFSH: Medical History Pneumothorax Severe tobacco use disorder CKD stage 3b, GFR 30-44 ml/min Smoking addiction Bilateral kidney masses Seen on chest CT 12/20/2023, US Renal ordered 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 Social History Smoking and tobacco/nicotine status: current every day tobacco/nicotine user cigarettes Packs smoked per day: 1.5 Years cigarettes smoked: 40 [ Other cigarette details: Started at 19] Quit status (tobacco/nicotine): not considering quitting Second hand smoke exposure: No Alcohol intake: former Substance/Drug Use: never Highest education level completed: 8th Grade Physical Exam Const: COMMON NORMALS: no acute distress, patient oriented x3 and healthy appearing HENMT: COMMON NORMALS: normocephalic and atraumatic HEAD & SCALP: normocephalic and atraumatic Neck/C-Spine: COMMON NORMALS: full ROM and supple Chest: COMMONS NORMALS: normal inspection of the chest Resp: COMMON NORMALS: normal respiratory effort Cardio: COMMON NORMALS: regular rate RATE: regular rate Back/Pelvis: OTHER: Tenderness noted to right lower back and right hip no saddle anesthesia no midline tenderness Extremity: COMMON NORMALS: normal to inspection and full ROM Neuro: COMMON NORMALS: patient oriented x3, moves all extremities and no focal motor deficits Psych: COMMON NORMALS: mental status grossly normal, Normal thought process present and cooperative THOUGHT PROCESS: Normal thought process present Skin: COMMON NORMALS: no rashes or lesions noted and no wounds GENERAL SKIN EXAM: no rashes or lesions noted Course Vital Signs: Vital signs: Vital Signs Temperature 99.1 F 07/31/25 15:50 Pulse Rate 93 07/31/25 15:50 Respiratory Rate 16 07/31/25 15:50 Blood Pressure 159/93 07/31/25 15:50 Pulse Oximetry 95 07/31/25 15:50 Oxygen Delivery Me thod Room Air 07/31/25 15:50 MDM - Back Pain/Injury Medical Decision Making Patient presents here with right sided low back and hip pain radiates to his leg. Differential includes sciatica, cord compression, epidural abscess. Patient has no fever here he has no signs of cord compression he has no saddle anesthesia pain is worse with movement. This is likely sciatica. Will start him on prednisone will prescribe hydrocodone for his pain he is stable for discharge at this time follow-up with his PCP did go over all this with him he understands agrees to plan. No radiology studies performed this visit Discharge Plan Discharge Patient Disposition: Home Clinical Impression: Sciatica Qualifiers: Laterality: right Qualified Code(s): M54.31 - Sciatica, right side Condition: Stable Prescriptions: New hydrocodone-acetaminophen 5-325 mg tablet 1 tab PO Q6H PRN (Reason: pain) Qty: 14 0RF prednisone 50 mg tablet 50 mg PO DAILY Qty: 5 0RF No Action gabapentin 100 mg capsule 100 mg PO TID lisinopril 40 mg tablet 40 mg PO DAILY Qty: 30 2RF Anoro Ellipta 62.5-25 mcg/actuation blister with device 1 inh inhalation DAILY Qty: 60 1RF albuterol sulfate 90 mcg/actuation HFA aerosol inhaler 1 inh inhalation QID PRN (Reason: shortness of breath or wheezing) Qty: 8.5 1RF methocarbamol 750 mg tablet 750 mg PO Q8H PRN (Reason: muscle spasm) Qty: 30 0RF Discharge Orders: Discharge ED (Routine); Ordered 07/31/25 Ordered By: Daya Watson Referrals: Rocky Fuentes MD [Primary Care Provider, [facility]] - 4-7 days Discharge Diet: Advance as tolerated Discharge Activity: Resume usual activity Patient Instructions: Sciatica (ED), Opioid Safety Print Language: South African Coding Level of Care Code ED Forestry Biology Specialist for 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
[2025-07-31] MEDS: morphine 4 mg/mL SDV 1 mL IM (16:27)
== END 2025-07-31 16:56 | disposition home or self-care (01) ==
PROVIDERS: Emergency Provider Emergency Medicine; PCP Family Medicine
DX: M54.31 Sciatica, right side (principal); F17.210 Nicotine dependence, cigarettes, uncomplicated; J44.9 Chronic obstructive pulmonary disease, unspecified; E11.22 Type 2 diabetes mellitus with diabetic chronic kidney disease; I12.9 Hypertensive chronic kidney disease with stage 1 through stage 4 chronic kidney disease, or unspecified chronic kidney disease; N18.32 Chronic kidney disease, stage 3b
CPT/HCPCS: 96372; 99284; J1100; J1885; J2270; J9999

== ENCOUNTER 2025-08-07 11:53 | Inpatient (IN) | payer MEDICAID, SELFPAY ==
[2025-08-07] VITALS (67 sets, daily range): BP systolic 71–141; BP diastolic 36–86; PULSE 89–115; RESP 16–50; TEMP 34.9–37.7; O2SAT 69–100; BMI 22.3
--- OUTSIDE RECORDS SUMMARY | 2025-08-07 11:55 | XMS_ITS | Clinical Summary ---
Author Organization [facility] Address [address] [place] [address] Phone Care Team Providers Care Card Grader Name Role Phone Unavailable Primary Care Provider [...] STL ABSTRACTION Provider, Abstract 05/28/2025 Orders Only [facility] [address] [place] [address] Provider, Abstract 05/28/2025 Telephone [facility] [address] [address] Lincoln Morales Needs Appointment 05/28/2025 Telephone [facility] [address] [address] Mitchell Muhammad Appointment Correction 05/26/2025 Orders Only [facility] [address] [address] Puma Atkins MD Secondary spontaneous pneumothorax (Primary Dx) 05/25/2025 External Device Data STL ABSTRACTION Provider, Abstract 05/25/2025 External Device Data STL ABSTRACTION Provider, Abstract 04/24/2025 1:46 PM CDT - 05/26/2025 10:49 AM CDT Hospital Encounter [facility] 4D Surgery Heart Lung [address] 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 Gender Identity Not on file Sexual Orientation [...] (#1) 2025 Medical Devices Implanted Type Area Final Inspector Paper Device Identifier Shelf Expiration Date Model / Serial / Lot Resolve Drainage Catheter-2024 Implanted:Qty: 1 on 05/06/2025 by Darin Lucero PA-C Catheter Left: Chest 08/24/2027 [facility]-[id number] MB / / [id number] Description:Lt chest tube Procedures Procedure Name Priority [...] 1 VW Routine 05/08/2025 11:10 AM CDT from Last 3 Months Results * TELEMETRY REPORT (05/27/2025 2:40 AM CDT) us Provider Scanning ECG ORDERABLES Final Result * XR CHEST PA OR AP 1 VW (05/26/2025 5:29 AM CDT) Only the most recent of27 resultswithin the time period is included. Anatomical [...] 4:00 AM CDT) Only the most recent of6 resultswithin the time period is included. SODIUM 136 136 - 145 mmol/L 05/26/2025 4:53 AM [facility] POTASSIUM 5.1 3.5 - 5.1 mmol/L 05/26/2025 4:53 AM [facility] CHLORIDE 105 98 - 107 mmol/L 05/26/2025 4:53 AM [facility] CO2 20(L) 22 - 29 mmol/L 05/26/2025 4:53 AM [facility] CALCIUM 8.9 8.6 - 10.0 mg/dL 05/26/2025 4:53 AM [facility] BUN 36(H) 6 - 20 mg/dL 05/26/2025 4:53 AM [facility] CREATININE 1.88(H) 0.67 - 1.17 mg/dL 05/26/2025 4:53 AM CDT [facility] GLUCOSE 103(H) 74 - 99 mg/dL 05/26/2025 4:53 AM CDT [facility] GFR 41(L) >=60 mL/min/1. 73 sq meter 05/26/2025 4:53 AM CDT [facility] Comment:eGFR calculated with 2020 CKD-EPI equation. Vegetarian diet, extremely high or low muscle mass, and may affect results. Cystatin C with Glomerular Filtration Rate is a suitable alternative for these patients. ANION GAP 11 9 - 20 mmol/L 05/26/2025 4:53 AM CDT [facility] Blood Venipuncture / Unknown 05/26/2025 4:00 AM CDT 05/26/2025 4:22 AM CDT Marie Eduardo MD CHEMISTRY ORDERABLES Final Res ult Performing Organization Address [facility] Co de Phone Number [facility] CLIA # [id number] [address] [address] * POTASSIUM LEVEL (05/25/2025 1:34 PM CDT) Only the most recent of2 resultswithin the time period is included. [facility] POTASSIUM 4.8 3.5 - 5.1 mmol/L 05/25/2025 2:13 PM CDT [facility] Blood Venipuncture / Unknown 05/25/2025 1:34 PM CDT 05/25/2025 1:40 PM CDT Marie Eduardo MD CHEMISTRY ORDERABLES Final Res ult Performing Organization Address City/[facility]/ZIP Co de Phone Number [facility] CLIA # [id number] [address] [address] * (ABNORMAL) CBC WITHOUT DIFFERENTIAL (05/25/2025 5:38 AM CDT) [facility] WBC 9.6 4.8 - 10.8 K/uL 05/25/2025 6:10 AM CDT [facility] RBC 3.92(L) 4.60 - 6.20 M/uL 05/25/2025 6:10 AM CDT [facility] HEMOGLOBIN 11.7(L) 14.0 - 18.0 g/dL 05/25/2025 6:10 AM CDT [facility] HEMATOCRIT 35.1(L) 41.0 - 53.0 % 05/25/2025 6:10 AM CDT [facility] MCV 89.5 84.0 - 103.0 fL 05/25/2025 6:10 AM CDT [facility] MCH 29.8 27.0 - 34.0 pg 05/25/2025 6:10 AM CDT [facility] MCHC 33.3 30.0 - 35.0 g/dL 05/25/2025 6:10 AM CDT [facility] PLATELETS 541(H) 140 - 440 K/uL 05/25/2025 6:10 AM CDT [facility] MPV 9.1 8.9 - 12.8 fL 05/25/2025 6:10 AM CDT [facility] RDW 14.5 11.0 - 14.5 % 05/25/2025 6:10 AM T [facility] RDW-STDEV 47.8 37.0 - 54.0 fL 05/25/2025 6:10 AM T [facility] Blood Venipuncture / Unknown 05/25/2025 5:38 AM CDT 05/25/2025 6:01 AM CDT us Marie Eduardo MD HEMATOLOGY ORDERABLES Final Re sult [facility] CLIA # [id number] [facility] [address] [place] [address] * (ABNORMAL) CBC WITH DIFFERENTIAL (05/22/2025 9:40 AM CDT) Only the most recent of9 resultswithin the time period is included. [facility] WBC 12.9(H) 4.8 - 10.8 K/uL 05/22/2025 9:53 AM [facility] RBC 3.93(L) 4.60 - 6.20 M/uL 05/22/2025 9:53 AM T [facility] HEMOGLOBIN 11.7(L) 14.0 - 18.0 g/dL 05/22/2025 9:53 AM [facility] HEMATOCRIT 35.8(L) 41.0 - 53.0 % 05/22/2025 9:53 AM [facility] MCV 91.1 84.0 - 103.0 fL 05/22/2025 9:53 AM [facility] MCH 29.8 27.0 - 34.0 pg 05/22/2025 9:53 AM [facility] MCHC 32.7 30.0 - 35.0 g/dL 05/22/2025 9:53 AM [facility] PLATELETS 464(H) 140 - 440 K/uL 05/22/2025 9:53 AM [facility] MPV 9.1 8.9 - 12.8 fL 05/22/2025 9:53 AM [facility] RDW 14.6(H) 11.0 - 14.5 % 05/22/2025 9:53 AM [facility] RDW-STDEV 48.8 37.0 - 54.0 fL 05/22/2025 9:53 AM [facility] NEUTROPHILS 59 42 - 75 % 05/22/2025 9:53 AM [facility] LYMPHOCYTES 16(L) 24 - 44 % 05/22/2025 9:53 AM [facility] MONOCYTES 15(H) 2 - 10 % 05/22/2025 9:53 AM [facility] EOSINOPHILS 9(H) 0 - 7 % 05/22/2025 9:53 AM CDT [facility] BASOPHILS 1 0 - 1 % 05/22/2025 9:53 AM CDT [facility] IMMATURE GRANULOCYTES 0 0 - 2 % 05/22/2025 9:53 AM CDT [facility] NEUTROPHIL ABSOLUTE 7.69 2.00 - 8.00 K/uL 05/22/2025 9:53 AM CDT [facility] LYMPHOCYTE ABSOLUTE 2.05 1.20 - 4.00 K/uL 05/22/2025 9:53 AM CDT [facility] MONOCYTE ABSOLUTE 1.88(H) 0.10 - 0.60 K/uL 05/22/2025 9:53 AM CDT [facility] EOSINOPHIL ABSOLUTE 1.17(H) 0.00 - 0.70 K/uL 05/22/2025 9:53 AM CDT [facility] BASOPHILS ABSOLUTE 0.08 0.00 - 0.20 K/uL 05/22/2025 9:53 AM CDT [facility] IMMATURE GRANULOCYTES ABSOLUTE 0.05 0.00 - 0.10 K/uL 05/22/2025 9:53 AM T [facility] SMEAR REVIEWED: NA - Not Applicable 05/22/2025 9:53 AM [facility] Blood Venipuncture / Unknown 05/22/2025 9:40 AM CDT 05/22/2025 9:50 AM CDT us Roel Andujar MD HEMATOLOGY ORDERABLES Final Res ult [facility] CLIA # [id number] [address] [place] [id number] * (ABNORMAL) RENAL FUNCTION PANEL (05/20/2025 12:49 AM CDT) Only the most recent of4 resultswithin the time period is included. [facility] Signature SODIUM 135(L) 136 - 145 mmol/L 05/20/2025 2:14 AM [facility] POTASSIUM 4.6 3.5 - 5.1 mmol/L 05/20/2025 2:14 AM [facility] CHLORIDE 103 98 - 107 mmol/L 05/20/2025 2:14 AM [facility] CO2 21(L) 22 - 29 mmol/L 05/20/2025 2:14 AM [facility] CALCIUM 8.8 8.6 - 10.0 mg/dL 05/20/2025 2:14 AM [facility] BUN 31(H) 6 - 20 mg/dL 05/20/2025 2:14 AM [facility] CREATININE 1.75(H) 0.67 - 1.17 mg/dL 05/20/2025 2:14 AM [facility] GLUCOSE 102(H) 74 - 99 mg/dL 05/20/2025 2:14 AM [facility] ALBUMIN 3.3(L) 3.5 - 5.2 g/dL 05/20/2025 2:14 AM [facility] PHOSPHORUS 4.7(H) 2.5 - 4.5 mg/dL 05/20/2025 2:14 AM [facility] GFR 45(L) >=60 mL/min/1. 73 sq meter 05/20/2025 2:14 AM [facility] Comment:eGFR calculated with 2020 CKD-EPI equation. Vegetarian diet, extremely high or low muscle mass, and may affect results. Cystatin C with Glomerular Filtration Rate is a suitable alternative for these patients. ANION GAP 11 9 - 20 mmol/L 05/20/2025 2:14 AM [facility] Blood Venipuncture / Unknown 05/20/2025 12:49 AM CDT 05/20/2025 1:39 AM CDT us Duc Camp MD CHEMISTRY ORDERABLES Final R esult [facility] CLIA # [id number] [address] [place] [address] * MRSA PCR RAPID SCREEN (05/18/2025 5:50 PM CDT) MRSA PCR RESULT MRSA not detected MRSA not detected 05/18/2025 7:22 PM CDT [facility] Surveillance ANTERIOR NARES SWAB / Unknown Collection / Unknown 05/18/2025 5:50 PM CDT 05/18/2025 5:56 PM CDT Narrative [facility] - 05/18/2025 7:22 PM CDT This assay [...] ORDER KAVITHA Final Result Performing Organization Address [facility]/ZIP Co de Phone Number [facility] CLIA # [id number] [address] 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 : 1965 Requested By: Order Number: [id number] Comfort MD: Dariana Newsome Measurements Intervals [place] Rate: 92 P: 44 LA: 142 QRS: -18 QRSD: 82 T: 69 QT: 338 QTc: 417 Interpretive Statements Normal sinus rhythm Normal ECG Electronically Signed On 05-18-2025 6:39:05 CDT by Dariana Newsome Procedure Note Dariana Newsome MD - 05/18/[address] [address] Test Date: 2025-05-17 Pat Name: CRISPIN YAN Department: 12 Room: [address] [place] [address] Gender: Male Technician Automated Equipment: [email or web address] : 1965 Requested By: Order Number: [id number] Reading MD: Dariana Newsome Measurements Intervals [place] Rate: 92 P: 44 LA: 142 QRS: -18 QRSD: 82 T: 69 QT: 338 QTc: 417 Interpretive Statements Normal sinus rhythm Normal ECG Electronically Signed On 05-18-2025 6:39:05 CDT by Dariana Newsome us Duc Camp MD ECG ORDERABLES Final Result INTERFACE SYSTEM Refer to clinic/hospital department * PROCEDURE REPORT (05/10/2025 10:06 PM CDT) Narrative Procedure Note Brayden Trammell MD - 05/10/2025 10:06 PM CDT [facility] Pulmonology Patient Name: Crispin Yan Procedure Date: [...] In: 12:29:47 PM Scope Out: 12:52:46 PM [address] [facility], [address], [place] Brayden Trammell MD PROCEDURE/MINOR SURGIC AL ORDERABLES Final Result * PT AND APTT (05/10/2025 9:26 AM CDT) PROTIME 14.3 12.7 - 14.9 Seconds 05/10/2025 9:57 AM CDT [facility] INR 1.1 0.8 - 1.2 05/10/2025 9:57 AM CDT [facility] PTT 28.9 24.8 - 37.2 seconds 05/10/2025 9:57 AM CDT [facility] Blood Venipuncture / Unknown 05/10/2025 9:26 AM CDT 05/10/2025 9:42 AM CDT Narrative [facility] [facility] - 05/10/2025 9:57 AM CDT Expected Values for INR: DVT/PE Goal INR 2.5; range 2.0 - 3.0 Valve Replacement Tissue Goal INR 2.5; range 2.0 - 3.0 Valve Replacement Mechanical Goal INR 3.0; range 2.5 - 3.5 POST-WA Goal INR 2.5; range 2.0 - 3.0 [...] Zabrina Bynum PA-C HEMATOLOGY ORDERABLES Final Result [facility] CLIA # [id number] [address] [place] [address] [place] [address] * (ABNORMAL) COMPREHENSIVE METABOLIC PANEL (05/10/2025 9:26 AM CDT) [facility] SODIUM 137 136 - 145 mmol/L 05/10/2025 10:16 AM T [facility] POTASSIUM 4.8 3.5 - 5.1 mmol/L 05/10/2025 10:16 AM T [facility] CHLORIDE 101 98 - 107 mmol/L 05/10/2025 10:16 AM CDT [facility] CO2 25 22 - 29 mmol/L 05/10/2025 10:16 AM T [facility] CALCIUM 9.0 8.6 - 10.0 mg/dL 05/10/2025 10:16 AM T [facility] BUN 37(H) 6 - 20 mg/dL 05/10/2025 10:16 AM T [facility] CREATININE 1.73(H) 0.67 - 1.17 mg/dL 05/10/2025 10:16 AM T [facility] GLUCOSE 108(H) 74 - 99 mg/dL 05/10/2025 10:16 AM [facility] TOTAL PROTEIN 5.9(L) 6.4 - 8.3 g/dL 05/10/2025 10:16 AM [facility] ALBUMIN 3.5 3.5 - 5.2 g/dL 05/10/2025 10:16 AM [facility] BILIRUBIN TOTAL 0.2 0.0 - 1.0 mg/dL 05/10/2025 10:16 AM T [facility] ALKALINE PHOSPHATASE 72 40 - 129 U/L 05/10/2025 10:16 AM T [facility] AST 27 10 - 50 U/L 05/10/2025 10:16 AM T [facility] ALT 35 <=50 U/L 05/10/2025 10:16 AM [facility] GFR 45(L) >=60 mL/min/1. 73 sq meter 05/10/2025 10:16 AM T [facility] Comment:eGFR calculated with 2020 CKD-EPI equation. Vegetarian diet, extremely high or low muscle mass, and may affect results. Cystatin C with Glomerular Filtration Rate is a suitable alternative for these patients. ANION GAP 11 9 - 20 mmol/L 05/10/2025 10:16 AM CDT [facility] Blood Venipuncture / Unknown 05/10/2025 9:26 AM CDT 05/10/2025 9:42 AM CDT Zabrina Bynum PA-C CHEMISTRY ORDERABLES Final Result [facility] CLIA # [id number] [facility] [address] from Last 3 Months Insurance [place]ICA[place] Advance Directives For more information, please contact: [phone] * Full Code (Latest Code Status on File) Date Activated Date Inactivated Comments 04/24/2025 2:44 PM 05/26/2025 12:59 PM
--- OUTSIDE RECORDS SUMMARY | 2025-08-07 11:55 | XMS_ITS | Clinical Summary ---
Author Organization [facility] Address [address] [place] [address] Phone Care Team Providers Care Naval Architect Specialist Name Role Phone Nicolasa Dexter Primary Care Provider [phone] Allergies No known active allergies Medications lisinopriL [...] to complete [place] [id number] [employer] Care Teams Naval Architect Specialist Relationship Specialty Start Date End Date Nicolasa Dexter [address], [place] [id number] PCP - General 02/19/22
--- NOTE | 2025-08-07 12:11 | XRR_ITS ---
PROCEDURE INFORMATION: Exam: XR Chest Exam date and time: 08/07/2025 12:20 PM Age: 60 years old Clinical indication: Dyspnea; Additional info: Weakness TECHNIQUE: Imaging protocol: Radiologic exam of the chest. Views: 1 view. COMPARISON: CR XR chest 1V portable [id number] 04/24/2025 8:44 AM FINDINGS: Lungs: 8 mm nodular opacity projects over the right midlung. Minimal linear opacities at the left base. Pleural spaces: Unremarkable. No pleural effusion. No pneumothorax. Heart/Mediastinum: Unremarkable. No cardiomegaly. Bones/joints: Unremarkable. XR/XR chest 1V portable [id number] IMPRESSION: 8 mm nodular opacity which could represent nipple shadow versus new pulmonary nodule. Suggest repeat frontal chest radiograph with nipple markers.
--- NOTE | 2025-08-07 12:11 | ECG_ITS ---
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 Measurements Intervals [place] Rate: 97 P: 83 CA: 165 QRS: 57 QRSD: 81 T: 79 QT: 338 QTc: 431 Interpretive Statements SINUS RHYTHM POSSIBLE RIGHT VENTRICULAR CONDUCTION DELAY [RSR (QR) IN V1/V2] MODERATE VOLTAGE CRITERIA FOR LVH, CONSIDER NORMAL VARIANT [MEETS CRITERIA IN ONE OF: R(aVL), S(V1), R(V5), R(V5/V6)+S(V1)] POSSIBLE SEPTAL MYOCARDIAL INFARCTION , OF INDETERMINATE AGE [30 ms Q WAVE IN V1/V2] ST ELEVATION IN THE ANTEROLATERAL LEADS, POSSIBLE INJURY Compared to ECG 07/23/2025 18:01:20 Incomplete right bundle-branch block no longer present ST ELEVATION IS NEW Electronically Signed On 08-07-2025 19:25:59 MORTGAGE ASSISTANT by Luke Ross M.D. [email or web address]
--- NOTE | 2025-08-07 12:13 | CTR_ITS ---
PROCEDURE INFORMATION: Exam: CT Chest Without Contrast; Diagnostic Exam date and time: 08/07/2025 2:22 PM Age: 60 years old Clinical indication: Abdominal tenderness; Dyspnea; Additional info: Weakness, AMS, abd pain, incontinence TECHNIQUE: Imaging protocol: Diagnostic computed tomography of the chest without contrast. Radiation optimization: All CT scans at this facility use at least one of these dose optimization techniques: automated exposure control; mA and/or kV adjustment per patient size (includes targeted exams where dose is matched to clinical indication); or iterative reconstruction. COMPARISON: CT ch abdpel wo/w [id number] 02/19/2025 1:04 PM RADIATION DOSE METRICS: Total DLP (mGy-cm): 738.03 FINDINGS: Lungs: Moderate emphysema. There is bronchial wall thickening and mucous plugging in the left lower lobe with subsegmental atelectasis/consolidation at the posterior base. Pleural spaces: Unremarkable. No pneumothorax. No pleural effusion. Heart: Unremarkable. No cardiomegaly. No pericardial effusion. Coronary arteries: Minimal coronary calcification. Lymph nodes: Unremarkable. No enlarged lymph nodes. Vasculature: Unremarkable. No aortic aneurysm. Bones/joints: Unremarkable. No acute fracture. Soft tissues: Unremarkable. COMMENTS: The presence of pulmonary emphysema on CT is an independent risk factor for lung cancer. In the absence of a history or active diagnosis of lung cancer, it is recommended that this patient with emphysema be evaluated for enrollment in a low dose CT lung cancer screening program. PROCEDURE INFORMATION: Exam: CT Abdomen And Pelvis Without Contrast Exam date and time: 08/07/2025 2:22 PM Age: 60 years old Clinical indication: Abdominal tenderness; Dyspnea; Additional info: Weakness, AMS, abd pain, incontinence TECHNIQUE: Imaging protocol: Computed tomography of the abdomen and pelvis without contrast. Radiation optimization: All CT scans at this facility use at least one of these dose optimization techniques: automated exposure control; mA and/or kV adjustment per patient size (includes targeted exams where dose is matched to clinical indication); or iterative reconstruction. COMPARISON: CT kidney stone [id number] 07/23/2025 7:01 PM RADIATION DOSE METRICS: Total DLP (mGy-cm): 738.03 FINDINGS: Liver: Normal. No mass. Gallbladder and biliary ducts: Normal. No calcified stones. No ductal dilation. Pancreas: Normal. No ductal dilation. Spleen: The spleen is very small. Adrenal glands: Normal. No mass. Kidneys and ureters: Bilateral renal cysts, measuring up to 3.5 cm in the left kidney. There is a hyperdense mass in the anterior aspect of the left kidney measuring 5.6 x 4.5 cm without appreciable change. A peripheral cystic component within it is again seen measuring 2.2 cm. Clustered stones are seen in the lower pole of the left kidney measuring up to 8 mm in greatest dimension. No hydronephrosis. Stomach and bowel: Suggestion of wall thickening of the 2nd and 3rd portion of the duodenum although visualization is limited on this noncontrast CT. Appendix: No evidence of appendicitis. Intraperitoneal space: Unremarkable. No free air. No significant fluid collection. Vasculature: Unremarkable. No abdominal aortic aneurysm. Lymph nodes: Unremarkable. No enlarged lymph nodes. Urinary bladder: Chang catheter in the bladder. Small luminal gas in the bladder. Reproductive: Unremarkable as visualized. Bones/joints: Unremarkable. No acute fracture. Soft tissues: Unremarkable. CT/[place] [id number] IMPRESSION: Wall thickening and mucous plugging in the left lower lobe with subsegmental consolidation/atelectasis. Emphysema. IMPRESSION: 1. Wall thickening of the duodenum which may represent duodenitis. Please correlate clinically. 2. Bilateral renal cysts with hyperdense left renal mass. This measures 5.6 x 4.5 cm without appreciable change. Suggest further evaluation with renal ultrasound. COMMENTS: Consistent with the [employer]'s Incidental Findings Committee white paper (J Am Tim Radiol 2018): Any incidental renal lesion less than 1 cm or classified as too small to characterize, or any incidental cystic renal lesion characterized as simple-appearing, is likely benign. No follow-up imaging is recommended for these lesions per consensus recommendations based on imaging criteria.
--- NOTE | 2025-08-07 12:13 | CTR_ITS ---
PROCEDURE INFORMATION: Exam: CT Head Without Contrast Exam date and time: 08/07/2025 2:18 PM Age: 60 years old Clinical indication: Altered mental status/memory loss; Confusion or disorientation; Additional info: AMS, weakness TECHNIQUE: Imaging protocol: Computed tomography of the head without contrast. Radiation optimization: All CT scans at this facility use at least one of these dose optimization techniques: automated exposure control; mA and/or kV adjustment per patient size (includes targeted exams where dose is matched to clinical indication); or iterative reconstruction. COMPARISON: No relevant prior studies available. RADIATION DOSE METRICS: Total DLP (mGy-cm): 303 FINDINGS: Brain: There is mild enlargement of the ventricular system and cortical sulci compatible with age-related atrophy. There is moderate to extensive patchy hypoattenuation throughout the deep white matter bilaterally, which is nonspecific, but likely represents chronic small-vessel ischemic change in a patient this age. 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 No acute intracranial hemorrhage is seen. No significant mass effect. Cerebral ventricles: Normal in size, for age, and midline in position. Paranasal sinuses: Visualized sinuses are clear. No air fluid levels. Mastoid air cells: Visualized mastoid air cells are well aerated. Bones: There is a mildly displaced fracture of the nasal spine, which could be acute or chronic. Soft tissues: Unremarkable. CT/CT head wo con* [id number] IMPRESSION: 1. Age-related atrophy with moderate to extensive patchy hypoattenuation throughout the deep white matter with small focal hypodensities in the subinsular white matter bilaterally, right greater than left. 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 An area of acute ischemia is difficult to exclude given this degree of patchy hypodensity. If clinically indicated, MRI may be helpful for further evaluation. 2. No acute intracranial hemorrhage or significant mass effect seen. 3. Mildly displaced fractures of the nasal spine, which could be acute or chronic. Please correlate clinically.
--- NOTE | 2025-08-07 12:24 | W.ED.WEAKNES ---
Documented by User: VENITA Jennings 08/07/25 14:41 HPI - Weakness General: Chief complaint: Weakness Stated complaint: weakness Time Seen by Provider: 08/07/25 11:54 Source: EMS and old records reviewed Mode of arrival: EMS Limitations: physical limitation History of Present Illness: Patient is a 60-year-old male who presents the emergency department by ambulance for weakness for the past 3 days. He is unable to provide any reliable history due to his medical status, rectal temperature at this time 95.5. Room 8 had called the EMS due to his progressive weakness as he has been bedbound for the past 3 days and has become newly incontinent of stool. Recently was seen here in the emergency department for back pain diagnosed with sciatica, no imaging at that time and he had improvement after pharmaceutical treatment. He has medical history of pneumothorax, chronic kidney disease, bilateral renal mass, and type 2 diabetes as well as COPD. He is alert and oriented as he is able to tell me his name birthday and year. However is very slow to respond and everywhere that is palpated he is reporting pain. He is tremendous at this time. Hypotensive per EMS on their arrival fluids were started and he is up to 115/86, normal pulse rate. Sulma hugger being applied at this time. MD Complaint: generalized weakness Onset (ago): day(s) (3) Related Data Home Medications ?Medication ?Instructions ?Recorded ?Confirmed gabapentin 100 mg capsule 100 mg PO TID 06/29/25 08/07/25 naloxone 4 mg/actuation nasal See Rx Instructions .Route .COMPLEX 08/07/25 08/07/25 spray (Narcan) Previous Rx's ?Medication ?Instructions ?Recorded lisinopril 40 mg tablet 40 mg PO DAILY #30 tabs 04/27/25 umeclidinium 62.5 mcg-vilanterol 1 inh inhalation DAILY #60 ea 06/21/25 25 mcg/actuation powdr for inhalation (Anoro Ellipta) albuterol sulfate 90 mcg/actuation 1 inh inhalation QID PRN shortness 07/12/25 aerosol inhaler of breath or wheezing #8.5 grams methocarbamol 750 mg tablet 750 mg PO Q8H PRN muscle spasm #30 07/23/25 tabs hydrocodone 5 mg-acetaminophen 325 1 tab PO Q6H PRN pain #14 tabs 07/31/25 mg tablet prednisone 50 mg tablet 50 mg PO DAILY #5 tabs 07/31/25 Allergies Allergy/AdvReac Type Severity Reaction Status Date / Time No Known Allergies Allergy Verified 07/31/25 15:55 Review of Systems General: Reports: ROS unobtainable due to medical condition PFSH ED PFSH: Medical History Pneumothorax Severe tobacco use disorder CKD stage 3b, GFR 30-44 ml/min Smoking addiction Bilateral kidney masses Seen on chest CT 12/20/2023, US Renal ordered 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 Social History Smoking and tobacco/nicotine status: current every day tobacco/nicotine user cigarettes Packs smoked per day: 1.5 Years cigarettes smoked: 40 [ Other cigarette details: Started at 19] Quit status (tobacco/nicotine): not considering quitting Second hand smoke exposure: No Alcohol intake: former Substance/Drug Use: never Highest education level completed: 8th Grade Physical Exam Const: COMMON NORMALS: patient oriented x3 OTHER: Thin, ill-appearing, lethargic. Jaundiced noted. Strong odor of stool, patient incontinent. Alert and oriented to person place and time. HENMT: COMMON NORMALS: normocephalic and atraumatic HEAD & SCALP: normocephalic and atraumatic OTHER: Dry oral mucosa Eye: COMMON NORMALS: Equal, round and reactive pupils present and EOMs intact bilaterally PUPIL: Yes Equal, round and reactive pupils present OTHER: Scleral icterus Neck/C-Spine: COMMON NORMALS: full ROM Chest: COMMONS NORMALS: normal inspection of the chest Resp: COMMON NORMALS: normal respiratory effort, No retractions, No use of accessory muscles and clear to auscultation bilaterally AUSCULTATION: clear to auscultation bilaterally OTHER: No significant signs of respiratory distress Cardio: COMMON NORMALS: regular rate, regular rhythm, No gallops present (Cardio), No murmurs present (Cardio) and No rub (Cardio) RATE: regular rate RHYTHM: regular rhythm GI: OTHER: Diffuse abdominal tenderness to light palpation Extremity: NARRATIVE EXTREMITY EXAM: Cool extremities throughout, bilateral lower extremities worse than upper. Delayed capillary refill Neuro: COMMON NORMALS: patient oriented x3, moves all extremities, no focal motor deficits and no sensory deficits noted Skin: NARRATIVE SKIN EXAM: Pale/jaundiced skin Course Vital Signs: Vital signs: Vital Signs Temperature 969 F H 08/07/25 15:06 Pulse Rate 108 H 08/07/25 15:06 Respiratory Rate 28 H 08/07/25 15:06 Blood Pressure 85/45 08/07/25 14:00 Pulse Oximetry 100 08/07/25 14:00 Oxygen Delivery Me thod Room Air 08/07/25 14:00 MDM - Weakness Medical Decision Making Patient presented by ambulance for weakness for 3 days unable to provide history or review of systems secondary to his severe lethargy however was notably alert and oriented and has remained so throughout ED stay. Past medical history positive for kidney disease, diabetes, and COPD. Incontinent of stool noted with examination this reportedly has been going on for the past 3 days. Initially found him to be severely anemic 6.9 whereas a few weeks ago his hemoglobin was normal. Hematocrit 20.5%. Severe high anion gap metabolic acidosis also noted with respiratory compensation. Troponin elevated to 139 likely representing a type III VA however BNP also significant elevated to 22,000. Lactic acid 8.2, creatinine elevated to 5.1, potassium 5.6, overall severe signs of septic shock, likely mixed picture at this time. Chest x-ray was unremarkable with his creatinine elevated held off on CT imaging very likely that he had been having GI blood loss to cause the anemia however does have a history of kidney disease. On multiple rechecks he denied to me having black tarry stools or blood in his stool, of note he did deny blood products as well as a central line placement here in the ED. I explained to him the necessity of this procedure and these interventions as lifesaving precautions in this setting, still he denied all interventions other than fluids and IV antibiotics of which she was started on Vanco and Zosyn following blood cultures. With his vitals on arrival his blood pressure had initially been 115/86 but he has become slightly more hypotensive throughout ED stay despite aggressive fluid resuscitation within sepsis protocol. He is hypothermic on arrival as well 95.5 rectally and Sulma hugger is applied. Throughout he has maintained normal oxygenation and there was no adventitious lung sounds on exam, he was diffusely tender to palpation of the abdomen so CT scan without contrast had been ordered and this is performed prior to patient's transfer to the ICU. Patient's family had also been contacte, nurse had indicated to me that as long as the patient was alert and able to make his own decisions to abide by his requests, however they state that if anything were to escalate that he is a full code, and has a history of becoming noncompliant. I had spoken to Dr. Peralta, hospitalist, informed of the patient's case and will except to the ICU, plan was to have the patient started on central line pressors however being at the patient is still alert and oriented this is not placed in the ER. I had spoken to Dr. Brown in the ED who had kindly agreed to assess the patient and placed the central line prior to the patient's denying, and will place admit orders. Patient had arrived to the ICU, reportedly had become unresponsive and Dr. Brown to place central line. Lab Data 08/07/25 12:17 08/07/25 12:17 Radiology Impressions Chest X-Ray 08/07/25 12:11 IMPRESSION: 8 mm nodular opacity which could represent nipple shadow versus new pulmonary nodule. Suggest repeat frontal chest radiograph with nipple markers. Chest/Abdomen/Pelvis CT 08/07/25 12:13 IMPRESSION: Wall thickening and mucous plugging in the left lower lobe with subsegmental consolidation/atelectasis. Emphysema. IMPRESSION: 1. Wall thickening of the duodenum which may represent duodenitis. Please correlate clinically. 2. Bilateral renal cysts with hyperdense left renal mass. This measures 5.6 x 4.5 cm without appreciable change. Suggest further evaluation with renal ultrasound. COMMENTS: Consistent with the [employer]'s Incidental Findings Committee white paper (J Am Tim Radiol 2018): Any incidental renal lesion less than 1 cm or classified as too small to characterize, or any incidental cystic renal lesion characterized as simple-appearing, is likely benign. No follow-up imaging is recommended for these lesions per consensus recommendations based on imaging criteria. Laboratory Results WBC 18.71 10^3/uL (3.29-11.43) H 08/07/25 12:17 RBC 2.31 10^6/uL (3.85-5.65) L 08/07/25 12:17 Hgb 6.90 g/dL (11.27-16.99) L 08/07/25 12:17 Hct 20.5 % (37-53) L* 08/07/25 12:17 MCV 88.7 fl (82-101) 08/07/25 12:17 MCH 29.9 pg (27-33) 08/07/25 12:17 MCHC 33.7 g/dL (30-55) 08/07/25 12:17 RDW 15.9 % (12.1-15.1) H 08/07/25 12:17 Plt Count 321 10^3/cmm (157-399) 08/07/25 12:17 MPV 11.2 fL (7.4-10.4) H 08/07/25 12:17 Neut % (Auto) 77.8 % 08/07/25 12:17 Lymph % (Auto) 11.1 % 08/07/25 12:17 [place] % (Auto) 9.7 % 08/07/25 12:17 Eos % (Auto) 0.1 % 08/07/25 12:17 Baso % (Auto) 0.2 % 08/07/25 12:17 Neut # (Auto) 14.58 10^3/uL (1.8-7.7) H 08/07/25 12:17 Lymph # (Auto) 2.1 10^3/uL (0.8-4.8) 08/07/25 12:17 [place] # (Auto) 1.8 10^3/uL (0.2-0.9) H 08/07/25 12:17 Eos # (Auto) 0.0 10^3/uL (0.0-0.8) 08/07/25 12:17 Baso # (Auto) 0.0 10^3/uL (0.0-0.1) 08/07/25 12:17 Nucleated RBC % (auto) 0.3 % 08/07/25 12:17 Nucleated RBCs # 0.1 /100WBC 08/07/25 12:17 PT 14.80 SECONDS (12.1-14.9) 08/07/25 12:17 INR 1.09 (0.8-1.2) 08/07/25 12:17 APTT 25.9 SECONDS (23.9-36.7) 08/07/25 12:17 Specimen Type Arterial 08/07/25 12:36 Sample Site Lb 08/07/25 12:36 ABG pH 7.24 (7.35-7.45) L 08/07/25 12:36 ABG pCO2 19.5 mmHg (35-45) L* 08/07/25 12:36 ABG pO2 109.0 mmHg (80.0-100.0) H 08/07/25 12:36 ABG HCO3 8.4 mmol/L (22-26) L 08/07/25 12:36 ABG O2 Saturation 97.4 08/07/25 12:36 ABG Base Excess -17.3 mmol/L (-2.0-2.0) L 08/07/25 12:36 Gerald Test Pos 08/07/25 12:36 A-a O2 Gradient 1.9 mmHg (5-10) L 08/07/25 12:36 Hematocrit 18.0 % (42-52) L 08/07/25 12:36 Hgb O2 Saturation 94.6 % (95-100) L 08/07/25 12:36 Carboxyhemoglobin 0.8 %THgb (0.4-20.1) 08/07/25 12:36 Methemoglobin 2.0 % (0.4-1.5) H 08/07/25 12:36 Total Hemoglobin 5.9 g/dL (14-18) L 08/07/25 12:36 Sodium 134.0 mmol/L (131-143) 08/07/25 12:36 Potassium 4.7 mmol/L (3.5-5.0) 08/07/25 12:36 Glucose 143.0 mg/dL (70-115) H 08/07/25 12:36 Ionized Calcium 1.0 mmol/L (1.1-1.4) L 08/07/25 12:36 O2 Delivery Device Ra 08/07/25 12:36 Para Educator ID Glc 08/07/25 12:36 Sodium 132 mmol/L (136-145) L 08/07/25 12:17 Potassium 5.6 mmol/L (3.5-5.1) H 08/07/25 12:17 Chloride 90 mmol/L (98-107) L 08/07/25 12:17 Carbon Dioxide 10 mmol/L (22-29) L 08/07/25 12:17 Anion Gap 37.6 (5-19) H 08/07/25 12:17 BUN 203 mg/dL (6-20) H* D 08/07/25 12:17 Creatinine 5.1 mg/dL (0.7-1.2) H 08/07/25 12:17 GFR Calculation 11.7 mL/min (90-130) L 08/07/25 12:17 Glucose 197 mg/dL (65-115) H 08/07/25 12:17 POC Glucose 121 mg/dL (70-110) H 08/07/25 13:06 Calculated Osmolality 347 mOsm/kg (285-295) H 08/07/25 12:17 Lactic Acid 8.2 mmol/L (0.5-2.2) H* 08/07/25 12:17 Calcium 8.3 mg/dL (8.5-10.5) L 08/07/25 12:17 Magnesium 3.0 mg/dL (1.7-2.3) H 08/07/25 12:17 Total Bilirubin 0.2 mg/dL (0.15-1.2) 08/07/25 12:17 AST 47 U/L (0-40) H 08/07/25 12:17 ALT 26 U/L (0-41) 08/07/25 12:17 Alkaline Phosphatase 48 U/L (40-130) 08/07/25 12:17 Troponin T Baseline 139 ng/L (0-15) H* 08/07/25 12:17 Troponin T 60 Minute 105.6 ng/L (0-15) H 08/07/25 12:55 Delta Troponin T -33.4 ABS# (0-10) L 08/07/25 12:55 NT-Pro-B Natriuret Pep 26374 pg/mL (0-125) H 08/07/25 12:17 Total Protein 5.1 g/dL (6.6-8.7) L 08/07/25 12:17 Albumin 3.3 g/dL (3.5-5.2) L 08/07/25 12:17 Globulin 1.8 g/dL (1.3-4.6) 08/07/25 12:17 Lipase 49 U/L (13-60) 08/07/25 12:17 Urine Color Yellow (Yellow) 08/07/25 12:40 Urine Appearance Clear (CLEAR) 08/07/25 12:40 Urine pH 5.0 (5-7) 08/07/25 12:40 Ur Specific [place] 1.016 (1.005-1.030) 08/07/25 12:40 Urine Protein Negative (Negative) 08/07/25 12:40 Urine Glucose (UA) Negative (Normal) 08/07/25 12:40 Urine Ketones Negative (Negative) 08/07/25 12:40 Urine Blood Negative (Negative) 08/07/25 12:40 Urine Nitrate Negative (Negative) 08/07/25 12:40 Urine Bilirubin Negative (Negative) 08/07/25 12:40 Urine Urobilinogen 0.2 mg/dL (Negative) 08/07/25 12:40 Ur Leukocyte Esterase Negative (Negative) 08/07/25 12:40 Urine RBC 0-2 /hpf (0-2) 08/07/25 12:40 Urine WBC 0-5 /hpf (0-5) 08/07/25 12:40 Ur Squamous Epith Cells 0-5 /hpf (0-5) 08/07/25 12:40 Amorphous Sediment Not Reportable 08/07/25 12:40 Urine Bacteria None seen /hpf (NONE) 08/07/25 12:40 Hyaline Casts 14.47 /lpf 08/07/25 12:40 Urine Opiates Screen Positive ng/mL (Negative) H 08/07/25 12:40 Ur Barbiturates Screen Negative ng/mL (Negative) 08/07/25 12:40 Ur Phencyclidine Scrn Negative ng/mL (Negative) 08/07/25 12:40 Ur Amphetamines Screen Negative ng/mL (Negative) 08/07/25 12:40 U Benzodiazepines Scrn Negative ng/mL (Negative) 08/07/25 12:40 Urine Cocaine Screen Negative ng/mL (Negative) 08/07/25 12:40 U Marijuana (THC) Screen Negative ng/mL (Negative) 08/07/25 12:40 Ethyl Alcohol < 10 mg/dL (0-10) 08/07/25 12:17 Influenza A (PCR) Negative (Negative) 08/07/25 12:22 Influenza Type B (PCR) Negative (Negative) 08/07/25 12:22 RSV (PCR) Negative (Negative) 08/07/25 12:22 SARS-CoV-2 (PCR) Negative (Negative) 08/07/25 12:22 Blood Type O Positive 08/07/25 12:55 Rho(D) Type Rh positive 08/07/25 12:55 Antibody Screen Negative 08/07/25 12:55 Crossmatch See Detail 08/07/25 12:55 All radiology interpretation(s) finalized by discharge Critical Care Time Critical Care Time: Critical Care Time: Yes Total Critical Care Time: 120 Attestation: 60-year-old male with septic shock, severe high anion gap metabolic acidosis, acute kidney injury on CKD, critical anemia, and cardiogenic strain, requiring immediate ICU level care with blood transfusion, broad-spectrum antibiotics, vasopressor support, metabolic stabilization, and emergent renal replacement therapy. Discharge Plan Discharge Patient Disposition: Admitted As Inpatient Admit Provider: Charo Peralta Clinical Impression: High anion gap metabolic acidosis, Severe anemia, Non-ST elevation VA (NSTEMI) Sepsis Qualifiers: Sepsis type: sepsis due to unspecified organism Sepsis acute organ dysfunction status: with acute organ dysfunction Severe sepsis acute organ dysfunction type: unspecified Severe sepsis shock status: without septic shock Qualified Code(s): A41.9 - Sepsis, unspecified organism Condition: Stable Coding Level of Care Code ED Dough Machine Operator for Chg Fwd Documented by User: Jacinta Brown MD 08/07/25 15:22 HPI - Weakness General: Chief complaint: Weakness Stated complaint: weakness Time Seen by Provider: 08/07/25 11:54 Related Data Home Medications ?Medication ?Instructions ?Recorded ?Confirmed gabapentin 100 mg capsule 100 mg PO TID 06/29/25 08/07/25 naloxone 4 mg/actuation nasal See Rx Instructions .Route .COMPLEX 08/07/25 08/07/25 spray (Narcan) Previous Rx's ?Medication ?Instructions ?Recorded lisinopril 40 mg tablet 40 mg PO DAILY #30 tabs 04/27/25 umeclidinium 62.5 mcg-vilanterol 1 inh inhalation DAILY #60 ea 06/21/25 25 mcg/actuation powdr for inhalation (Anoro Ellipta) albuterol sulfate 90 mcg/actuation 1 inh inhalation QID PRN shortness 07/12/25 aerosol inhaler of breath or wheezing #8.5 grams methocarbamol 750 mg tablet 750 mg PO Q8H PRN muscle spasm #30 07/23/25 tabs hydrocodone 5 mg-acetaminophen 325 1 tab PO Q6H PRN pain #14 tabs 07/31/25 mg tablet prednisone 50 mg tablet 50 mg PO DAILY #5 tabs 07/31/25 Allergies Allergy/AdvReac Type Severity Reaction Status Date / Time No Known Allergies Allergy Verified 07/31/25 15:55 PFSH ED PFSH: Medical History Pneumothorax Severe tobacco use disorder CKD stage 3b, GFR 30-44 ml/min Smoking addiction Bilateral kidney masses Seen on chest CT 12/20/2023, US Renal ordered 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 Social History Smoking and tobacco/nicotine status: current every day tobacco/nicotine user cigarettes Packs smoked per day: 1.5 Years cigarettes smoked: 40 [ Other cigarette details: Started at 19] Quit status (tobacco/nicotine): not considering quitting Second hand smoke exposure: No Alcohol intake: former Substance/Drug Use: never Highest education level completed: 8th Grade Course Vital Signs: Vital signs: Vital Signs Temperature 969 F H 08/07/25 15:06 Pulse Rate 108 H 08/07/25 15:06 Respiratory Rate 28 H 08/07/25 15:06 Blood Pressure 85/45 08/07/25 14:00 Pulse Oximetry 100 08/07/25 14:00 Oxygen Delivery Me thod Room Air 08/07/25 14:00 MDM - Weakness Medical Decision Making Patient presented by ambulance for weakness for 3 days unable to provide history or review of systems secondary to his severe lethargy however was notably alert and oriented and has remained so throughout ED stay. Past medical history positive for kidney disease, diabetes, and COPD. Incontinent of stool noted with examination this reportedly has been going on for the past 3 days. Initially found him to be severely anemic 6.9 whereas a few weeks ago his hemoglobin was normal. Hematocrit 20.5%. Severe high anion gap metabolic acidosis also noted with respiratory compensation. Troponin elevated to 139 likely representing a type III VA however BNP also significant elevated to 22,000. Lactic acid 8.2, creatinine elevated to 5.1, potassium 5.6, overall severe signs of septic shock, likely mixed picture at this time. Chest x-ray was unremarkable with his creatinine elevated held off on CT imaging very likely that he had been having GI blood loss to cause the anemia however does have a history of kidney disease. On multiple rechecks he denied to me having black tarry stools or blood in his stool, of note he did deny blood products as well as a central line placement here in the ED. I explained to him the necessity of this procedure and these interventions as lifesaving precautions in this setting, still he denied all interventions other than fluids and IV antibiotics of which she was started on Vanco and Zosyn following blood cultures. With his vitals on arrival his blood pressure had initially been 115/86 but he has become slightly more hypotensive throughout ED stay despite aggressive fluid resuscitation within sepsis protocol. He is hypothermic on arrival as well 95.5 rectally and Sulma hugger is applied. Throughout he has maintained normal oxygenation and there was no adventitious lung sounds on exam, he was diffusely tender to palpation of the abdomen so CT scan without contrast had been ordered and this is performed prior to patient's transfer to the ICU. Patient's family had also been contacte, nurse had indicated to me that as long as the patient was alert and able to make his own decisions to abide by his requests, however they state that if anything were to escalate that he is a full code, and has a history of becoming noncompliant. I had spoken to Dr. Peralta, hospitalist, informed of the patient's case and will except to the ICU, plan was to have the patient started on central line pressors however being at the patient is still alert and oriented this is not placed in the ER. I had spoken to Dr. Brown in the ED who had kindly agreed to assess the patient and placed the central line prior to the patient's denying, and will place admit orders. Patient had arrived to the ICU, reportedly had become unresponsive and Dr. Brown to place central line. I have evaluated the patient multiple times today. Ability initially was little bit confused but seem to have capacity. I reviewed lab work. I agree with antibiotics and blood products. Fluids. I did go to the ICU and placed in line. Second exam in the ICU. I examined the patient personally General: Alert, no acute distress. Skin: Warm, dry. Head: Normocephalic, atraumatic. Neck: Supple, trachea midline. Eye: Extraocular movements are intact. Ears, nose, mouth and throat: Dry oral mucosa Cardiovascular: Regular, Normal peripheral perfusion. Respiratory: Lungs are clear to auscultation, respirations are non-labored, breath sounds are equal, Symmetrical chest wall expansion. Gastrointestinal: Soft, Nontender, Non distended Musculoskeletal: Normal ROM, no deformity. Neurological: Alert and oriented, No focal neurological deficit observed. Psychiatric: Cooperative, appropriate mood & affect. Internal Jugular Central Line Procedure Note Time: INDICATION: Need for central venous access in emergent situation. Preformed by myself. Line: 7 malay triple lumen IJ CONSENT: Patient ultimately gave consent as well as a family member PROCEDURE SUMMARY: handwash prior to starting sterile technique. A time out was performed. My hands were washed immediately prior to the procedure. I wore a surgical cap, mask with protective eyewear, full gown and sterile gloves throughout the procedure. The patient was placed in Trendelenburg position. LEFT chest region was prepped using chlorhexidine scrub and draped in sterile fashion using a full drape and sterile probe cover and sterile gel employed. The medial and lateral heads of the sternocleidomastoid muscle were identified as was the carotid pulse. The Internal Jugular vein was identified using the ultrasound. Local anesthesia was not needed, patient intubated and sedated. Using real-time out of plane guidance, the introducer needle was inserted into the Internal Jugular vein under direct ultrasound visualization. Venous blood was withdrawn. The syringe was removed and a guidewire was advanced into the introducer needle. The guidewire was visualized in the Internal Jugular Vein by ultrasound. A small incision was made at the skin surface with a scalpel and the introducer needle was exchanged for a dilator over the guidewire. After appropriate dilation was obtained, the dilator was exchanged over the wire for a 17 malay central venous catheter. The wire was removed and the catheter was sutured in place A sterile sorbaview shield was placed over the catheter at the insertion site. The patient tolerated the procedure without any hemodynamic compromise. At time of procedure completion, all ports aspirated and flushed properly. Post-procedure chest x-ray is pending at this time. Estimated blood loss is 1cc. The case was discussed with the midlevel provider. Evaluation and management service: I agree with the evaluation and management decisions made in this patient's care. Results interpretation: I agree with the study interpretation in this patient's care, I agree with the documentation of the study interpretation. Lab Data 08/07/25 12:17 08/07/25 12:17 Radiology Impressions Chest X-Ray 08/07/25 12:11 IMPRESSION: 8 mm nodular opacity which could represent nipple shadow versus new pulmonary nodule. Suggest repeat frontal chest radiograph with nipple markers. Chest/Abdomen/Pelvis CT 08/07/25 12:13 IMPRESSION: Wall thickening and mucous plugging in the left lower lobe with subsegmental consolidation/atelectasis. Emphysema. IMPRESSION: 1. Wall thickening of the duodenum which may represent duodenitis. Please correlate clinically. 2. Bilateral renal cysts with hyperdense left renal mass. This measures 5.6 x 4.5 cm without appreciable change. Suggest further evaluation with renal ultrasound. COMMENTS: Consistent with the [employer]'s Incidental Findings Committee white paper (J Am Tim Radiol 2018): Any incidental renal lesion less than 1 cm or classified as too small to characterize, or any incidental cystic renal lesion characterized as simple-appearing, is likely benign. No follow-up imaging is recommended for these lesions per consensus recommendations based on imaging criteria. Laboratory Results WBC 18.71 10^3/uL (3.29-11.43) H 08/07/25 12:17 RBC 2.31 10^6/uL (3.85-5.65) L 08/07/25 12:17 Hgb 6.90 g/dL (11.27-16.99) L 08/07/25 12:17 Hct 20.5 % (37-53) L* 08/07/25 12:17 MCV 88.7 fl (82-101) 08/07/25 12:17 MCH 29.9 pg (27-33) 08/07/25 12:17 MCHC 33.7 g/dL (30-55) 08/07/25 12:17 RDW 15.9 % (12.1-15.1) H 08/07/25 12:17 Plt Count 321 10^3/cmm (157-399) 08/07/25 12:17 MPV 11.2 fL (7.4-10.4) H 08/07/25 12:17 Neut % (Auto) 77.8 % 08/07/25 12:17 Lymph % (Auto) 11.1 % 08/07/25 12:17 [place] % (Auto) 9.7 % 08/07/25 12:17 Eos % (Auto) 0.1 % 08/07/25 12:17 Baso % (Auto) 0.2 % 08/07/25 12:17 Neut # (Auto) 14.58 10^3/uL (1.8-7.7) H 08/07/25 12:17 Lymph # (Auto) 2.1 10^3/uL (0.8-4.8) 08/07/25 12:17 [place] # (Auto) 1.8 10^3/uL (0.2-0.9) H 08/07/25 12:17 Eos # (Auto) 0.0 10^3/uL (0.0-0.8) 08/07/25 12:17 Baso # (Auto) 0.0 10^3/uL (0.0-0.1) 08/07/25 12:17 Nucleated RBC % (auto) 0.3 % 08/07/25 12:17 Nucleated RBCs # 0.1 /100WBC 08/07/25 12:17 PT 14.80 SECONDS (12.1-14.9) 08/07/25 12:17 INR 1.09 (0.8-1.2) 08/07/25 12:17 APTT 25.9 SECONDS (23.9-36.7) 08/07/25 12:17 Specimen Type Arterial 08/07/25 12:36 Sample Site Lb 08/07/25 12:36 ABG pH 7.24 (7.35-7.45) L 08/07/25 12:36 ABG pCO2 19.5 mmHg (35-45) L* 08/07/25 12:36 ABG pO2 109.0 mmHg (80.0-100.0) H 08/07/25 12:36 ABG HCO3 8.4 mmol/L (22-26) L 08/07/25 12:36 ABG O2 Saturation 97.4 08/07/25 12:36 ABG Base Excess -17.3 mmol/L (-2.0-2.0) L 08/07/25 12:36 Gerald Test Pos 08/07/25 12:36 A-a O2 Gradient 1.9 mmHg (5-10) L 08/07/25 12:36 Hematocrit 18.0 % (42-52) L 08/07/25 12:36 Hgb O2 Saturation 94.6 % (95-100) L 08/07/25 12:36 Carboxyhemoglobin 0.8 %THgb (0.4-20.1) 08/07/25 12:36 Methemoglobin 2.0 % (0.4-1.5) H 08/07/25 12:36 Total Hemoglobin 5.9 g/dL (14-18) L 08/07/25 12:36 Sodium 134.0 mmol/L (131-143) 08/07/25 12:36 Potassium 4.7 mmol/L (3.5-5.0) 08/07/25 12:36 Glucose 143.0 mg/dL (70-115) H 08/07/25 12:36 Ionized Calcium 1.0 mmol/L (1.1-1.4) L 08/07/25 12:36 O2 Delivery Device Ra 08/07/25 12:36 Para Educator ID Glc 08/07/25 12:36 Sodium 132 mmol/L (136-145) L 08/07/25 12:17 Potassium 5.6 mmol/L (3.5-5.1) H 08/07/25 12:17 Chloride 90 mmol/L (98-107) L 08/07/25 12:17 Carbon Dioxide 10 mmol/L (22-29) L 08/07/25 12:17 Anion Gap 37.6 (5-19) H 08/07/25 12:17 BUN 203 mg/dL (6-20) H* D 08/07/25 12:17 Creatinine 5.1 mg/dL (0.7-1.2) H 08/07/25 12:17 GFR Calculation 11.7 mL/min (90-130) L 08/07/25 12:17 Glucose 197 mg/dL (65-115) H 08/07/25 12:17 POC Glucose 121 mg/dL (70-110) H 08/07/25 13:06 Calculated Osmolality 347 mOsm/kg (285-295) H 08/07/25 12:17 Lactic Acid 8.2 mmol/L (0.5-2.2) H* 08/07/25 12:17 Calcium 8.3 mg/dL (8.5-10.5) L 08/07/25 12:17 Magnesium 3.0 mg/dL (1.7-2.3) H 08/07/25 12:17 Total Bilirubin 0.2 mg/dL (0.15-1.2) 08/07/25 12:17 AST 47 U/L (0-40) H 08/07/25 12:17 ALT 26 U/L (0-41) 08/07/25 12:17 Alkaline Phosphatase 48 U/L (40-130) 08/07/25 12:17 Troponin T Baseline 139 ng/L (0-15) H* 08/07/25 12:17 Troponin T 60 Minute 105.6 ng/L (0-15) H 08/07/25 12:55 Delta Troponin T -33.4 ABS# (0-10) L 08/07/25 12:55 NT-Pro-B Natriuret Pep 56669 pg/mL (0-125) H 08/07/25 12:17 Total Protein 5.1 g/dL (6.6-8.7) L 08/07/25 12:17 Albumin 3.3 g/dL (3.5-5.2) L 08/07/25 12:17 Globulin 1.8 g/dL (1.3-4.6) 08/07/25 12:17 Lipase 49 U/L (13-60) 08/07/25 12:17 Urine Color Yellow (Yellow) 08/07/25 12:40 Urine Appearance Clear (CLEAR) 08/07/25 12:40 Urine pH 5.0 (5-7) 08/07/25 12:40 Ur Specific [place] 1.016 (1.005-1.030) 08/07/25 12:40 Urine Protein Negative (Negative) 08/07/25 12:40 Urine Glucose (UA) Negative (Normal) 08/07/25 12:40 Urine Ketones Negative (Negative) 08/07/25 12:40 Urine Blood Negative (Negative) 08/07/25 12:40 Urine Nitrate Negative (Negative) 08/07/25 12:40 Urine Bilirubin Negative (Negative) 08/07/25 12:40 Urine Urobilinogen 0.2 mg/dL (Negative) 08/07/25 12:40 Ur Leukocyte Esterase Negative (Negative) 08/07/25 12:40 Urine RBC 0-2 /hpf (0-2) 08/07/25 12:40 Urine WBC 0-5 /hpf (0-5) 08/07/25 12:40 Ur Squamous Epith Cells 0-5 /hpf (0-5) 08/07/25 12:40 Amorphous Sediment Not Reportable 08/07/25 12:40 Urine Bacteria None seen /hpf (NONE) 08/07/25 12:40 Hyaline Casts 14.47 /lpf 08/07/25 12:40 Urine Opiates Screen Positive ng/mL (Negative) H 08/07/25 12:40 Ur Barbiturates Screen Negative ng/mL (Negative) 08/07/25 12:40 Ur Phencyclidine Scrn Negative ng/mL (Negative) 08/07/25 12:40 Ur Amphetamines Screen Negative ng/mL (Negative) 08/07/25 12:40 U Benzodiazepines Scrn Negative ng/mL (Negative) 08/07/25 12:40 Urine Cocaine Screen Negative ng/mL (Negative) 08/07/25 12:40 U Marijuana (THC) Screen Negative ng/mL (Negative) 08/07/25 12:40 Ethyl Alcohol < 10 mg/dL (0-10) 08/07/25 12:17 Influenza A (PCR) Negative (Negative) 08/07/25 12:22 Influenza Type B (PCR) Negative (Negative) 08/07/25 12:22 RSV (PCR) Negative (Negative) 08/07/25 12:22 SARS-CoV-2 (PCR) Negative (Negative) 08/07/25 12:22 Blood Type O Positive 08/07/25 12:55 Rho(D) Type Rh positive 08/07/25 12:55 Antibody Screen Negative 08/07/25 12:55 Crossmatch See Detail 08/07/25 12:55 Discharge Plan Discharge Patient Disposition: Admitted As Inpatient Admit Provider: Charo Peralta Clinical Impression: High anion gap metabolic acidosis, Severe anemia, Non-ST elevation VA (NSTEMI) Sepsis Qualifiers: Sepsis type: sepsis due to unspecified organism Sepsis acute organ dysfunction status: with acute organ dysfunction Severe sepsis acute organ dysfunction type: unspecified Severe sepsis shock status: without septic shock Qualified Code(s): A41.9 - Sepsis, unspecified organism Condition: Stable Coding Level of Care Code ED Dough Machine Operator for 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
[2025-08-07 12:34] LABS: Hemoglobin 6.90 g/dL (11.27-16.99); Mean Corpuscular HGB Conc 33.7 g/dL (30-55); Mean Corpuscular Hemoglobin 29.9 pg (27-33); Mean Corpuscular Volume 88.7 fl (82-101); Nucleated Red Blood Cells % 0.3 %; Platelet Count 321 10^3/cmm (157-399); Red Blood Count 2.31 10^6/uL (3.85-5.65); White Blood Count 18.71 10^3/uL (3.29-11.43)
[2025-08-07 12:46] LABS: ABG PH Result 7.24 (7.35-7.45); Alveolar-Arterial Oxygen Gradi 1.9 mmHg (5-10); Arterial Blood Gas Hematocrit 18.0 % (42-52); Blood Gas Allen Test Pos; Blood Gas Sample Type Arterial; Carboxyhemoglobin 0.8 %THgb (0.4-20.1); Glucose Level-ABG 143.0 mg/dL (70-115); HCO3 ABG 8.4 mmol/L (22-26); Ionized Calcium Level - ABG 1.0 mmol/L (1.1-1.4); Methemoglobin 2.0 % (0.4-1.5); Oxygen Saturation ABG 97.4; PO2 ABG 109.0 mmHg (80.0-100.0); Potassium Level - ABG 4.7 mmol/L (3.5-5.0); Sodium Level - ABG 134.0 mmol/L (131-143)
[2025-08-07 12:46] LABS: Hematocrit 20.5 % (37-53); INR 1.09 (0.8-1.2); Prothrombin Time 14.80 SECONDS (12.1-14.9)
[2025-08-07 12:47] LABS: Partial Thromboplastin Time 25.9 SECONDS (23.9-36.7)
[2025-08-07 12:47] LABS: ABG PCO2 19.5 mmHg (35-45)
[2025-08-07 12:48] LABS: Blood Gas Operator Identificat GLC; Blood Gas Sample Site LB
[2025-08-07 12:55] LABS: Glucose Urine UA Negative (Normal); Nitrate Urine Negative (Negative); Specific Gravity, Urine 1.016 (1.005-1.030)
[2025-08-07 12:58] LABS: Add Urine Microscopic? YES
--- NOTE | 2025-08-07 12:58 | PC.NURSE ---
OPERATOR [employer], Charge nurse and RT have tried finger probe, ear probe, forehead probe and have been unsuccessful to obtain an O2 reading. Per pt baseline pt does not wear oxygen at home and is currently on room air.
--- NOTE | 2025-08-07 13:02 | PC.NURSE ---
pt has bear jayesher on. rectal temp 94.8 upon recheck.
[2025-08-07 13:04] LABS: Alanine Aminotransferase 26 U/L (0-41); Albumin Level 3.3 g/dL (3.5-5.2); Alcohol Level < 10 mg/dL (0-10); Alkaline Phosphatase 48 U/L (40-130); Anion Gap 37.6 (5-19); Aspartate Amino Transferase 47 U/L (0-40); Calcium 8.3 mg/dL (8.5-10.5); Carbon Dioxide 10 mmol/L (22-29); Chloride 90 mmol/L (98-107); Globulin 1.8 g/dL (1.3-4.6); Glucose 197 mg/dL (65-115); Lactic Sepsis W/Reflex 8.2 mmol/L (0.5-2.2); Lipase 49 U/L (13-60); Magnesium 3.0 mg/dL (1.7-2.3); NT Pro B Type Natriuretic Pept 22431 pg/mL (0-125); Potassium 5.6 mmol/L (3.5-5.1); Sodium 132 mmol/L (136-145); Total Protein 5.1 g/dL (6.6-8.7); Troponin(5th) Baseline 139 ng/L (0-15)
[2025-08-07 13:04] LABS: PCP Screen Urine Negative (Negative)
--- NOTE | 2025-08-07 13:05 | PC.NURSE ---
pt is a&ox4. pt answered name, , year and month questions correctly. pt able to say that he is at [facility].
[2025-08-07 13:08] LABS: Respiratory Syncytial Virus Ce NEGATIVE (Negative); SARS-CoV-2 PCR NEGATIVE (Negative)
--- NOTE | 2025-08-07 13:11 | ECG_ITS ---
[facility] Test Date: 2025-08-07 Pat Name: Crispin Yan Department: Room: Gender: Male Co Founder And President: : 1965 Requested By: Ha Vera Order Number: [id number] Comfort MD: Luke Ross M.D. Measurements Intervals [place] Rate: 108 P: 82 ID: [id number] QRS: 56 QRSD: 86 T: 67 QT: 333 QTc: 446 Interpretive Statements SINUS TACHYCARDIA WITH FIRST DEGREE AV BLOCK POSSIBLE RIGHT VENTRICULAR CONDUCTION DELAY [RSR (QR) IN V1/V2] SEPTAL MYOCARDIAL INFARCTION , OF INDETERMINATE AGE [40+ ms Q WAVE IN V1/V2] WARNING: DATA QUALITY MAY AFFECT INTERPRETATION Compared to ECG 08/07/2025 12:27:35 First degree AV block now present ST ELEVATION HAS RESOLVED Electronically Signed On 08-07-2025 20:00:08 ETL ANALYST DEVELOPER by Luke Ross M.D. [email or web address]
[2025-08-07 13:12] LABS: Blood Urea Nitrogen 203 mg/dL (6-20); Osmolality Calculated 347 mOsm/kg (285-295)
[2025-08-07] MEDS: piperacillin-tazobactam 3.375 GM in sodium chloride 0.9% (plus) 50 ML IV ×2 (13:15→19:37)
[2025-08-07 13:19] LABS: Reflex Lactate Order REFLEX LACTIC ORDERD
--- NOTE | 2025-08-07 13:44 | PC.NURSE ---
pt refusing blood products at this time. provider notified. johnnie explained the risks and need for blood to the pt. pt still refusing at this time. pt giving consent for central line placement at this time.
--- NOTE | 2025-08-07 13:53 | PC.NURSE ---
pt refusing central line and picc line placement at this time.
--- NOTE | 2025-08-07 13:57 | PC.PHAR ---
Verified medications. Pt unable to remember when he last took any medications. Pt has Amlodipine 5 mg daily from 05/26/25 30ds not on his med list but can't verify with pharmacy until Saturday.
--- NOTE | 2025-08-07 14:02 | PICC.NOTE ---
this nurse was contacted from ED provider for PICC placement, this nurse spoke with patient regarding PICC line. pt refusing PICC placement, also states he does not want doctor to place central line. pt is currently oriented x4, able to deny consent at this time. pt status has worsened gradually, ED physician spoke with patient about risks of not obtaining more access. pt still refusing at this time. this nurse spoke with sister, Jane Tapia. Jane states pt's behavior has been similar in past regarding hospital visits and being non-compliant.
[2025-08-07] MEDS: norepinephrine 4 MG/250 ML BAG 30 MG (14:46)
--- NOTE | 2025-08-07 14:47 | PC.NURSE ---
recieved pt from er noted systolic pressure 60 s pt unable to answer questions appropriately Dr Weeks called sister
--- NOTE | 2025-08-07 15:12 | XRR_ITS ---
PROCEDURE INFORMATION: Exam: XR Chest Exam date and time: 08/07/2025 4:15 PM Age: 60 years old Clinical indication: Other vascular access device placement or adjustment; Central line, non-tunnelled; Additional info: Central line confirmation only; Inferior lungs not needed TECHNIQUE: Imaging protocol: Radiologic exam of the chest. Views: 1 view. COMPARISON: [place] [id number] 08/07/2025 2:22 PM FINDINGS: Tubes, catheters and devices: There has been interval placement of a left jugular central line with the tip projecting over the junction of the superior vena cava and right atrium. Lungs: Only the upper lung wang were included on this film. There appears to be prominence of the central perihilar interstitial markings, incompletely evaluated. Pleural spaces: No significant pneumothorax is demonstrated. Pleural effusion is difficult to exclude as the lung bases were not included. Heart/Mediastinum: Within normal limits. Bones/joints: Intact. Other findings: None. XR/XR chest 1V portable [id number] IMPRESSION: Interval placement of a left jugular central line in good position. No significant pneumothorax seen.
--- NOTE | 2025-08-07 15:30 | PC.NURSE ---
after dr Weeks talked with sister emergent line placed left IJ per er doc . levophed gtt started at 4mcg noted bp 70 systolic titrated up to 8 mcg noted dark tarry dried bm hardy area started ns bolus and obtained prbc from lab per permission of sister as pt with decreased loc on mumble response unable to obtain o2 sats blood warmer used /rapid infuser and ns bolus stopped while transfusion going after noted blood pressure start returning pt became more responsive and answer question.
--- NOTE | 2025-08-07 15:34 | P.HP_ITS ---
Providers/Chief Complaint 2 Admitting Physician: Charo Peralta MD Primary Care Provider: Rocky Fuentes MD Chief Complaint: weakness History of Present Illness Crispin Yan is a 60 year old male with unknown past medical history who was brought to ED with 3 days history of weakness. He was unable to provide any history. On arrival, he was hypothermic and noted to be anemic with hemoglobin of 6.9, with previous hemoglobin of 14.70. Additional pertinent labs reveal WBC of 12.83, sodium of 132, potassium of 5.6, BUN 203, creatinine 5.1, lactic acid 8.2. Troponin 139 in the setting of acute renal failure. Patient hypotensive and reportedly declined blood transfusion as well as central line placement for pressors. Patient lives with roommate. No family available. Patient was reportedly alert and oriented in ED.Per ED provider, patient declined transfusion and central line placement. I went to ED to assess patient, however, patient was in Imaging, and subsequently arrived to ICU. On arrival to ICU, patient obtunded and hypotensive and hypothermic. Patient unable to give any consent and I called sister Jane, next of kin, and received consent for line placement and blood transfusion. Patient received a dose of vancomycin in ED. Given 1 L of IVF. Blood cultures obtained and patient started on IVF, transfusion of PRBC and levophed. Additionally, patient noted to have gross melena on arrival to ICU. CT results pending at time of arrival. Review of Systems 2 Narrative: Unable to obtain as patient markedly obtunded and unable to give any history Medications/Allergies Home Medications ?Medication ?Instructions ?Recorded ?Confirmed ?Last Taken ?Type lisinopril 40 mg tablet 40 mg PO DAILY #30 tabs 10/2008/07/25 Unknown Rx umeclidinium 62.5 mcg-vilanterol 1 inh inhalation SAVANA Y #60 ea 06/21/25 08/07/25 Unknown Rx 25 mcg/actuation powdr for inhalation (Anoro Ellipta) gabapentin 100 mg capsule 100 mg PO TID 06/29/2508/07 Unknown History albuterol sulfate 90 mcg/actuation 1 inh inhalation QI D PRN shortness 07/12/25 08/07/25 Unknown Rx aerosol inhaler of breath or wheezing #8.5 g ryan methocarbamol 750 mg tablet 750 mg PO Q8H PRN muscle s pasm #30 07/23/25 08/07/25 Unknown Rx tabs hydrocodone 5 mg-acetaminophen 325 1 tab PO Q6H PRN pa in #14 tabs 07/31/25 08/07/25 Unknown Rx mg tablet prednisone 50 mg tablet 50 mg PO DAILY #5 tabs 07/3108/07/25 Unknown Rx naloxone 4 mg/actuation nasal See Rx Instructions .Rou te .COMPLEX 08/07/25 08/07/25 Unknown History spray (Narcan) Allergies Allergy/AdvReac Type Severity Reaction Status Date / Time No Known Allergies Allergy Verified 07/31/25 15:55 PFSH Acute 2 PFSH: Medical History Pneumothorax Severe tobacco use disorder CKD stage 3b, GFR 30-44 ml/min Smoking addiction Bilateral kidney masses Seen on chest CT 12/20/2023, US Renal ordered 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 Social History Smoking and tobacco/nicotine status: current every day tobacco/nicotine user cigarettes Packs smoked per day: 1.5 Years cigarettes smoked: 40 [ Other cigarette details: Started at 19] Quit status (tobacco/nicotine): not considering quitting Second hand smoke exposure: No Alcohol intake: former Substance/Drug Use: never Highest education level completed: 8th Grade Vitals/I&O/Wt Last Vital Signs Temp 969 F H 08/07/25 15:06 Pulse 108 H 08/07/25 15:06 Resp 28 H 08/07/25 15:06 BP 85/45 08/07/25 14:00 Pulse Ox 100 08/07/25 14:00 O2 Del Method Room Air 08/07/25 14:00 08/07/25 08/07/25 08/07/25 06:59 14:59 22:59 Intake Total 2309 / 2309 0 / 2309 Balance 2309 / 2309 0 / 2309 Weight last 48 hrs Weight 72.575 kg Weight 72.575 kg Physical Exam 2 Narrative: Patient obtunded, not oriented and unable to provide history or respond to questions. Patient cachectic, with unkempt appearance HENMT: HEAD & SCALP: normocephalic and atraumatic Neck/C-Spine: GENERAL: Yes trachea midline, No lymphadenopathy, No JVD and No Meningeal signs present Resp: AUSCULTATION: rhonchi Cardio: RATE: regular rate RHYTHM: regular rhythm GI: OTHER: soft, non tender. no masses Data 08/07/25 17:22 08/07/25 12:17 Micro: Microbiology 08/07/25 12:23 Blood Culture - Preliminary Blood SPECIMEN COLLECTED 08/07/25 12:20 Blood Culture - Preliminary Blood SPECIMEN COLLECTED CT Abd/Pel: Radiologist's impression: Exam: CT Abdomen And Pelvis Without Contrast IMPRESSION: 1. Wall thickening of the duodenum which may represent duodenitis. Please correlate clinically. 2. Bilateral renal cysts with hyperdense left renal mass. This measures 5.6 x 4.5 cm without appreciable change. Suggest further evaluation with renal ultrasound CT head IMPRESSION: 1. Age-related atrophy with moderate to extensive patchy hypoattenuation throughout the deep white matter with small focal hypodensities in the subinsular white matter bilaterally, right greater than left. 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 An area of acute ischemia is difficult to exclude given this degree of patchy hypodensity. If clinically indicated, MRI may be helpful for further evaluation. 2. No acute intracranial hemorrhage or significant mass effect seen. 3. Mildly displaced fractures of the nasal spine, which could be acute or chronic. Please correlate clinically. A&P Assessment and plan 1. Hemorrhagic shock: Patient arrived to ED with hypotension, and severe new onset anemia Patient noted to have prior hemoglobin/hematocrit of 14.70/44.8 on 07/23/25. Hemoglobin of 6.9 on arrival On arrival to ICU, I was immediately available at bedside and patient noted to have large amount of melanotic stool STAT type and cross and transfusion of PRBC, FFP and platelets IVF bolus Consent for central line placement and blood transfusion obtained with sister Jane on the phone Central line access obtained immediately with ED physician Dr Blum here to place it. Levophed started Monitor I/O closely Monitor H and H IV ppi Consulted Dr Cintron for scope Continue ICU monitoring 2. Severe anemia: As noted above, with hemoglobin of 6.9, new onset anemia, GI bleed No h/o noted in records of NSAID use, or alcohol use Not on anticoagulation Transfuse as above and surgery consult Monitor closely 3. Melena: Will need endoscopy to evaluate for GI source of bleeding as noted above 4. Acute renal failure superimposed on stage 3b chronic kidney disease: Patient noted with acute renal failure superimposed on CKD stage 3b. Serum creatinine 5.1, as compared to previous value of 2.0 on 07/23/25 UA obtained and unremarkable Severe metabolic acidosis likely exacerbated by hypotension and GI bleed Monitor renal function. Monitor I/O Home meds reveal he is on lisinopril, which is held If no improvement, he will need nephrology evaluation for consideration of dialysis 5. Sepsis: Lactic acid elevated to 8.4. Most likely he is not septic He has been started empirically on IV cefepime and vancomycin Blood cultures obtained, follow No source of infection, likely he is not septic, and hypotension secondary to GI bleed/melena 6. Leukocytosis: WBC elevated to 12.8, continue to monitor 7. Elevated troponin: Inthe setting of CARRIE, likely non ischemic. Will monitor, obtain echo Discussed with Dr Blas and consult placed 8. Hypothermia: As noted above- tempt on arrival 95.5. Improved with fluid resuscitation, blood transfusion Monitor closely in ICU 9. Severe tobacco use disorder: smoking cessation will be encouraged strongly Plan: DVT prophylaxis- SCD Lovenox/heparin contraindicated due to GI bleed/anemia Code status- Full Discussed with care team members and patients sister PDMP PDMP Reviewed: Not Reviewed Attestations 2 Medical Necessity Statement*: Requires further hospitalization for management of altered mental status, hypothermia, hemorrhagic shock, and acute renal failure. Care is expected to cross 2 midnights. Coding Level of Care Code 46577 Diagnoses Hemorrhagic shock R57.8 Severe anemia D64.9 Melena K92.1 Acute renal failure superimposed on stage 3b chronic kidney disease N17.9; N18.32 Sepsis A41.9 Leukocytosis D72.829 Elevated troponin R79.89 Hypothermia T68.XXXA Severe tobacco use disorder F17.200
--- NOTE | 2025-08-07 16:28 | USCV_ITS ---
Crispin Yan Age: 60 Gender: M : 1965 Exam Date: 08/07/2025 17:47 Ordering Phys: Charo Peralta MD Technologist: Gaurang Walters Exam Location: [facility] [place] Indication: hypotension, elevated troponin BP: 99 / 67 HR: 89 Rhythm: Sinus Technical Quality: Adequate MEASUREMENTS (Male / Female) Normal Values 2D ECHO LV Diastolic Diameter PLAX 4.4 cm 4.2 - 5.9 / 3.9 - 5.3 cm IVS Diastolic Thickness 0.7 cm 0.6 - 1.0 / 0.6 - 0.9 cm IVS Systolic Thickness 1.1 cm LVPW Diastolic Thickness 1.3 cm 0.6 - 1.0 / 0.6 - 0.9 cm LVPW Systolic Thickness 2.0 cm LVOT Diameter 2.2 cm LV Ejection Fraction 2D Teich 84.3 % LV Ejection Fraction MOD 4C 75.5 % LV Ejection Fraction MOD 2C 69.6 % LV Ejection Fraction 2C AL 68.6 % LA Diameter 2.4 cm RA Systolic Volume 4C AL 33.5 ml RA Systolic Volume 4C MOD 31.9 ml LA Sys Volume AL 33.8 cm cubed LA Sys Volume Index AL 17.8 cm cubed/m squared Aorta at Sinotubular Diameter 3.3 cm IVC Diameter 2.0 cm M-MODE LA Ao Ratio MM 1.0 AV Cusp Separation MM 1.8 cm DOPPLER AV Peak Velocity 191.0 cm/s LVOT Peak Velocity 180.0 cm/s AV Area Cont Eq vti 3.2 cm squared AV Area Cont Eq pk 3.5 cm squared MV Peak Velocity 129.0 cm/s MV Area PHT 4.9 cm squared Mitral E to A Ratio 0.9 TV Peak Velocity 285.5 cm/s TR Peak Velocity 390.0 cm/s TR Peak Gradient 60.8 mmHg TR Mean Velocity 314.0 cm/s TR Mean Gradient 41.3 mmHg TR Velocity Time Integral 78.6 cm PV Peak Velocity 174.0 cm/s RV Ejection Time 0.2 s FINDINGS Left Ventricle Normal left ventricular cavity size. Global hyperdynamic left ventricular systolic function. Small area of hypokinesis on the apical septum. Left ventricular ejection fraction is 75%. Mild basal septal hypoertrophy. Turbulance in the left ventricular outflow tract. Mild left ventriclar outflow tract obstruction with a maximum pressure gradient 15 mmHg. Right Ventricle Normal right ventricular size. Normal right ventricular systolic function. Mild pulmonary hypertension, RVSP 44 mmHg. Right Atrium Normal right atrial size. Left Atrium Normal left atrial size. IA Septum Normal appearance of the interatrial septum. Mitral Valve Moderate thickening of the mitral valve leaflets. Mild mitral annular calcification. Mild mitral valve regurgitation. No mitral valve stenosis. Moderate systolic anterior motion of the anterior mitral valve leaflets which can be seen in hypertrophic cardiomyopathy. Aortic Valve Structurally normal trileaflet aortic valve. No aortic valve stenosis. Trace aortic valve regurgitation. Tricuspid Valve Mild tricuspid valve regurgitation. Pulmonic Valve No pulmonary valve stenosis. No pulmonary valve regurgitation. Pericardium No pericardial effusion. Aorta Mild aortic dilatation of the sinuses of valsalva. IVC Borderline dilated IVC dimension with >50% respiratory change of the inferior vena cava. CONCLUSIONS 1. Global hyperdynamic left ventricular systolic function, EF 75%. There is a small area of hypokinesis in the apical septum. 2. Mild hypertrophy of the left ventricular basal septum, 1.4 cm with a mild left ventricular outflow tract pressure gradient of 15 mmHg. 3. Moderately thickened mitral valve leaflets with moderate systolic anterior motion of the anterior mitral valve leaflet which can be seen in hypertrophic cardiomyopathy. 4. Mild mitral valve regurgitation 5. Mildly dilated sinus of Valsalva, measuring 4 cm. 6. Mild pulmonary hypertension, PASP 44 mmHg. Luke Ross MD, FACC (Electronically Signed) Final Date: 07 August 2025 18:57 Amended: 07 August 2025 19:31 C
[2025-08-07] MEDS: pantoprazole 40 mg SDV 80 MG IVP (16:48)
--- NOTE | 2025-08-07 17:07 | PC.NURSE ---
large liquid bm dark red with red clots noted doctor called with orders noted , did notice drop in blood pressure also . to infuse another unit prbc
[2025-08-07 17:34] LABS: Hematocrit 23.3 % (37-53); Hemoglobin 7.70 g/dL (11.27-16.99)
[2025-08-07] MEDS: norepinephrine 4 MG/250 ML BAG 84.38 MG IV (17:38)
[2025-08-07] MEDS: octreotide 500 MCG in sodium chloride 0.9% (100 ml) 100 ML 10.1 MCG IV (17:47)
[2025-08-07 17:54] LABS: Lactic Acid level (Lactate) 1.7 mmol/L (0.5-2.2)
[2025-08-07 18:08] LABS: Troponin 5 6HR 153.5 ng/L (0-15); Troponin 5 6HR Delta 14.5 ng/L (0-12)
--- NOTE | 2025-08-07 18:11 | ECG_ITS ---
[facility]: [facility] Pat Name: Crispin Yan Department: Room: ICU07 Gender: Male Industrial Electrical Technician: : 1965 Requested By: Ha Vera Order Number: [id number] Comfort MD: Luke Ross M.D. Measurements Intervals [place] Rate: 93 P: 13 VT: 141 QRS: 2 QRSD: 80 T: 76 QT: 343 QTc: 428 Interpretive Statements SINUS RHYTHM POSSIBLE RIGHT VENTRICULAR CONDUCTION DELAY [RSR (QR) IN V1/V2] MILD ST ELEVATION, CONSIDER ACUTE INJURY PEAKED T WAVE, POSSIBLY HYPERKALEMIA SEPTAL MYOCARDIAL INFARCTION , OF INDETERMINATE AGE [40+ ms Q WAVE IN V1/V2] Compared to ECG 08/07/2025 13:16:01 Sinus tachycardia no longer present ST ELEVATION AND PEAKED T WAVES ARE NEW Electronically Signed On 08-07-2025 19:53:46 SAWMILLING OPERATOR by Luke Ross M.D. [email or web address]
--- NOTE | 2025-08-07 18:46 | P.CONIM_ITS ---
Providers/Reason For Consult 2 Consulting Physician/Specialty*: ronn strickland MD general surgery Reason for Consult*: GI bleeding Attending Physician: Charo Peralta MD Primary Care Provider: Rocky Fuentes MD History of Present Illness History of Present Illness Crispin Yan is a 60 year old male with abdominal pain for 3 days and found on sofa covered with bloody feces by relative who lives with him. Patient found to have hgb 6's and was refusing blood transfusion but then became confused and had to have relative and next of kin to allow transfusion. He got 2 units of PRBC from 12 noon to 5 pm and repeat hgb 7.6. He has been given another unit of PRBC and now awake with SBP 115 and weaning off levophed. HR 90's. His Troponin is going up and 135. BNP is 12k. He is getting echo now. He has heart disease in past and lung disease. Prednisone 50 mg is in chart but unclear if he is still taking this. He is a smoker. Not on any strong blood thinners. PLT over 300k. Review of Systems 2 Narrative: Just waking up and difficult to obtain right now. Medications/Allergies Home Medications ?Medication ?Instructions ?Recorded ?Confirmed ?Last Taken ?Type lisinopril 40 mg tablet 40 mg PO DAILY #30 tabs 10/2008/07/25 Unknown Rx umeclidinium 62.5 mcg-vilanterol 1 inh inhalation SAVANA Y #60 ea 06/21/25 08/07/25 Unknown Rx 25 mcg/actuation powdr for inhalation (Anoro Ellipta) gabapentin 100 mg capsule 100 mg PO TID 06/29/2508/07 Unknown History albuterol sulfate 90 mcg/actuation 1 inh inhalation QI D PRN shortness 07/12/25 08/07/25 Unknown Rx aerosol inhaler of breath or wheezing #8.5 g ryan methocarbamol 750 mg tablet 750 mg PO Q8H PRN muscle s pasm #30 07/23/25 08/07/25 Unknown Rx tabs hydrocodone 5 mg-acetaminophen 325 1 tab PO Q6H PRN pa in #14 tabs 07/31/25 08/07/25 Unknown Rx mg tablet prednisone 50 mg tablet 50 mg PO DAILY #5 tabs 07/3108/07/25 Unknown Rx naloxone 4 mg/actuation nasal See Rx Instructions .Rou te .COMPLEX 08/07/25 08/07/25 Unknown History spray (Narcan) Allergies Allergy/AdvReac Type Severity Reaction Status Date / Time No Known Allergies Allergy Verified 07/31/25 15:55 Current Medications Generic Name Dose Route Start Last Admin Trade Name Freq PRN Reason Stop Dose Admin Norepinephrine Bitartrate 4 mg in 250 mls @ 0 mls/hr 08/07/25 14:45 08/07/25 17:38 Levophed IV 22.5 mcg/min .Q0M MICHELLE 84.38 mls/hr Protocol Administration Per Protocol Sodium Chloride 1,000 mls @ 125 mls/hr 08/07/25 16:30 08/07/25 16:49 Sodium Chloride 0.9% IV 125 mls/hr .Q8H MICHELLE Administration Octreotide Acetate 500 mcg/ 101 mls @ 10.1 mls/hr 08/07/25 17:15 08/07/25 17:47 Sodium Chloride IV 50 mcg/hr .Q10H MICHELLE 10.1 mls/hr 50 MCG/HR Administration PFSH Acute 2 PFSH: Medical History (Updated 08/07/25 @ 18:53 by Ronn Strickland MD) Sepsis Pneumothorax Severe tobacco use disorder CKD stage 3b, GFR 30-44 ml/min Smoking addiction Bilateral kidney masses Seen on chest CT 12/20/2023, US Renal ordered 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 Social History Smoking and tobacco/nicotine status: current every day tobacco/nicotine user cigarettes Packs smoked per day: 1.5 Years cigarettes smoked: 40 [ Other cigarette details: Started at 19] Quit status (tobacco/nicotine): not considering quitting Second hand smoke exposure: No Alcohol intake: former Substance/Drug Use: never Highest education level completed: 8th Grade Vitals/I&O/Wt Last Vital Signs Temp 96.9 F L 08/07/25 18:00 Pulse 89 08/07/25 18:15 Resp 20 H 08/07/25 18:15 BP 116/70 08/07/25 18:15 Pulse Ox 100 08/07/25 18:04 O2 Del Method Nasal Cannula 08/07/25 18:04 O2 Flow Rate 2 08/07/25 18:04 08/07/25 08/07/25 08/07/25 06:59 14:59 22:59 Intake Total 2309 / 2309 852 / 3161 Output Total 600 / 600 Balance 2309 / 2309 252 / 2561 Weight last 48 hrs Weight 160 lb Weight 160 lb Physical Exam 2 Narrative: Patient points to epigastric area as area of pain. He is slightly or mildly tender here with no masses, no guarding or rebound and nondistended and soft. Data 08/07/25 17:22 08/07/25 12:17 Micro: Microbiology 08/07/25 12:23 Blood Culture - Preliminary Blood SPECIMEN COLLECTED 08/07/25 12:20 Blood Culture - Preliminary Blood SPECIMEN COLLECTED A&P Assessment and plan 1. Melena: 2. Severe anemia: Plan: Patient will recieve blood products to stabilize him. Cardiology to clear him for EGD and rule out IL and CHF. He will have EGD in morning tomorrow after hemodynamic stabilization. Risks include bleeding, infection, cardiopulmonary problems, aspiration, perforation, missed lesion, more procedures. PDMP PDMP Reviewed: Not Reviewed Coding Level of Care Code 70409 Diagnoses Melena K92.1 Severe anemia D64.9
--- NOTE | 2025-08-07 20:29 | P.PN_ITS ---
Subjective 2 Subjective: 60-year-old male with severe a cute blood loss anemia now awake receiving FFP platelets and blood. He was unable to give much history earlier with hypotension on pressors now off Levophed. Patient tells me that he has had 3 days of diarrhea with black and red stool. He thought it was just diarrhea initially so did not come to the hospital. He is taking ibuprofen just 1 tablet daily not several. He also takes Tylenol. Patient states he was taking this for heart pain. I reviewed old records looks like he had a pneumothorax in March for collapsed lung. Patient tells me he has had 30 to 40 pound weight loss in 1 year. Patient states he is unemployed but has worked multiple types of jobs in the past. He denies alcohol use at all states he does not smoke weed or use drugs. His next of kin is his sister Rudy Arguelles. He wants full CODE STATUS. Patient smokes 1.5 packs/day for 40 years and he had a left upper lung nodule in 2023 that on follow-up in 2024 had resolved pneumothorax was related to traumatic fall through a broken chair Nurse reports that he had 1 moderate bloody stool here blood pressure is stabilized. Chest x-ray shows his lungs expanded and no pneumothorax. Left IJ line is in good position Patient tells me he was put on prednisone by Dr. Fuentes for 5 days presumably for COPD. Patient states he finished the course of 50 mg daily. Patient is not on proton pump inhibitor or acid suppression and denies history of GI bleeding ever. He denies history of colonoscopy or EGD. ICU nurse at his bedside states patient is making urine 300 cc of clear urine now. Patient has had 3 units of packed red cells 2 units of platelets and is slated to have 2 more units of FFP. There is 1/4 unit of packed red cells ordered but not yet given patient is off pressors he denies pain Vitals/I&O/Wt Last Vital Signs Temp 97.8 F 08/07/25 20:25 Pulse 102 H 08/07/25 20:25 Resp 17 08/07/25 20:25 BP 121/71 08/07/25 20:25 Pulse Ox 92 08/07/25 20:25 O2 Del Method Nasal Cannula 08/07/25 20:00 O2 Flow Rate 3 08/07/25 20:00 08/07/25 08/07/25 08/07/25 06:59 14:59 22:59 Intake Total 2309 / 2309 1525.694 / 3834.694 Output Total 1025 / 1025 Balance 2309 / 2309 500.694 / 2809.694 Weight last 48 hrs Weight 72.575 kg Weight 72.575 kg Physical Exam 2 Narrative: General Well-developed thin male in no acute cardiopulmonary stress CV regular rate and rhythm Lungs clear to auscultation bilaterally Abdomen positive bowel tones soft nontender Calves no tenderness or pretibial ERASMO Dorsal pedal pulses 2+ radial pulses 2+ Data 08/07/25 17:22 08/07/25 12:17 Micro: Microbiology 08/07/25 12:23 Blood Culture - Preliminary Blood SPECIMEN COLLECTED 08/07/25 12:20 Blood Culture - Preliminary Blood SPECIMEN COLLECTED A&P Assessment and plan 1. Acute GI bleeding: Suspected upper GI bleeding with recent prednisone and large-volume blood loss. Will check iron studies to see if he has chronic blood loss but his MCV is normal 2. Hemorrhagic shock: Attributable to upper GI bleed most likely although he has not had actual vomiting to confirm that the hide degree of bleeding and recent prednisone suggest that it is upper GI. Continue with proton pump inhibitor. 3. Acute renal failure superimposed on stage 3b chronic kidney disease: Due to volume depletion and severe GI bleed. Patient is off pressors. He has severe metabolic acidosis and will be started on bicarb 4. CKD stage 3b, GFR 30-44 ml/min: Baseline creatinine running 2.0 5. High anion gap metabolic acidosis: He has severe metabolic acidosis with incomplete respiratory compensation. Will start bicarb drip for 1 L add mini panel to next blood draw in 1-1/2 hours 6. Smoking addiction: Start nicotine patch PDMP PDMP Reviewed: Not Reviewed Attestations 2 Medical Necessity Statement*: Patient remains critically ill in the ICU but much improved. Hemodynamic stability is shown and good perfusion. He will require greater than 2 midnights in hospital Coding Level of Care Code Critical Care >/= 30 minutes Diagnoses Acute GI bleeding K92.2 Hemorrhagic shock R57.8 Acute renal failure superimposed on stage 3b chronic kidney disease N17.9; N18.32 CKD stage 3b, GFR 30-44 ml/min N18.32 High anion gap metabolic acidosis E87.29 Smoking addiction F17.200 Time Spent (min) 50
[2025-08-07] MEDS: sucralfate 1 gm/10 mL Oral Liq UDC PO (21:37)
--- NOTE | 2025-08-07 22:34 | PC.NURSE ---
Clarified with Dr. Wright, will complete H&H lab after transfusion of PRBC, platelets, and plasma. Will await additional unit of PRBC on hold until after H&H labs result. Also clarified about fluids. Received orders to run both NS and bicarb drip.
[2025-08-07 22:54] LABS: Anion Gap 23.2 (5-19); Calcium 6.8 mg/dL (8.5-10.5); Carbon Dioxide 15 mmol/L (22-29); Chloride 105 mmol/L (98-107); Glucose 156 mg/dL (65-115); Potassium 5.2 mmol/L (3.5-5.1); Sodium 138 mmol/L (136-145)
[2025-08-07 23:08] LABS: Osmolality Calculated 343 mOsm/kg (285-295)
[2025-08-07 23:09] LABS: Blood Urea Nitrogen 164 mg/dL (6-20)
[2025-08-08] VITALS (81 sets, daily range): BP systolic 124–167; BP diastolic 63–108; PULSE 73–111; RESP 14–33; TEMP 36.1–37.3; O2SAT 66–100
[2025-08-08] MEDS: octreotide 500 MCG in sodium chloride 0.9% (100 ml) 100 ML 10.1 MCG IV ×3 (03:08→23:12)
[2025-08-08 03:34] LABS: Iron 84 ug/dL (59-158); Total Iron Binding Capacity 230 mcg/dl; Unsaturated Iron Binding 146 ug/dL (112-347)
[2025-08-08 04:23] LABS: Hematocrit 21.2 % (37-53); Hemoglobin 7.20 g/dL (11.27-16.99); Mean Corpuscular HGB Conc 34.0 g/dL (30-55); Mean Corpuscular Hemoglobin 29.8 pg (27-33); Mean Corpuscular Volume 87.6 fl (82-101); Nucleated Red Blood Cells % 3.8 %; Platelet Count 299 10^3/cmm (157-399); Red Blood Count 2.42 10^6/uL (3.85-5.65); White Blood Count 14.45 10^3/uL (3.29-11.43)
[2025-08-08 04:31] LABS: Anion Gap 18.4 (5-19); Calcium 6.6 mg/dL (8.5-10.5); Carbon Dioxide 19 mmol/L (22-29); Chloride 108 mmol/L (98-107); Glucose 192 mg/dL (65-115); Potassium 4.4 mmol/L (3.5-5.1); Sodium 141 mmol/L (136-145)
[2025-08-08 05:05] LABS: Osmolality Calculated 343 mOsm/kg (285-295)
[2025-08-08 05:06] LABS: Blood Urea Nitrogen 141 mg/dL (6-20)
[2025-08-08] MEDS: pantoprazole 40 mg SDV IVP ×2 (06:17→17:03)
[2025-08-08] MEDS: piperacillin-tazobactam 3.375 GM in sodium chloride 0.9% (plus) 50 ML IV (06:17)
[2025-08-08] MEDS: sucralfate 1 gm/10 mL Oral Liq UDC PO ×4 (08:08→23:12)
--- NOTE | 2025-08-08 09:02 | ANES.PREANE2 ---
Pre-Anesthetic Assessment Height/Weight: Height 5 ft 11 in Weight 138 lb 11.2 oz Temp Pulse Resp BP Pulse Ox O2 Del Method O2 Flow Rate 97.9 F 87 18 137/91 98 Nasal Cannula 4 08/08/25 08:15 08/08/25 08:53 08/08/25 08:53 08/08/25 08:15 08/08/25 08:53 08/08/25 08:53 08/08/25 08:53 Preop Diagnosis: GI bleed Operation Date: 08/08/25 10:00 Proposed Procedures p EGD(Not Applicable) - Isidro Cintron MD Was Beta Mj taken within 24 hours: N/A Was Clonidine taken within 24 hours: N/A Social Tobacco and No alcohol Exam alert, oriented x 3, clear to auscultation bilaterally and regular rate & rhythm Airway Submandibular: within normal limits Cervical ROM: within normal limits Mallampati: Class III Comments: Comments: Edentulous, large wyatt Anesthetic Plan ASA status: 4 Anesthesia: MAC Other: No prior issues with anesthesia patient initially admitted yesterday with acute anemia secondary from duodenal bleed noted on CT Patient initially had mild ST elevation on ekg with a proBNP of 22xxx and elevated troponins Patient was placed on levophed and given multiple units of PRBCs, platelets and FFP Patient is currently off all pressors, denies CP and is doing much better Labs reviewed from this morning, hemoglobin 7.2. 1 unit PRBCs given after this. Recheck hemoglobin 8.9 Echo performed yesterday showing hyperdynamic contractility with EF of 75% Spoke with cardiology and they feel this is was all secondary to demand ischemia from prolonged anemia and that patient is ok to proceed with procedure given the urgency of the situation plan for mac anesthesia with possible conversion to GA if needed Medications/Allergies Home Medications ?Medication ?Instructions ?Recorded ?Confirmed ?Last Taken ?Type lisinopril 40 mg tablet 40 mg PO DAILY #30 tabs 04/27/25 08/07/25 Unknown Rx umeclidinium 62.5 mcg-vilanterol 1 inh inhalation DAILY #60 ea 06/21/25 08/07/25 Unknown Rx 25 mcg/actuation powdr for inhalation (Anoro Ellipta) gabapentin 100 mg capsule 100 mg PO TID 06/29/25 08/07/25 Unknown History albuterol sulfate 90 mcg/actuation 1 inh inhalation QID PRN shortness 07/12/25 08/07/25 Unknown Rx aerosol inhaler of breath or wheezing #8.5 grams methocarbamol 750 mg tablet 750 mg PO Q8H PRN muscle spasm #30 07/23/25 08/07/25 Unknown Rx tabs hydrocodone 5 mg-acetaminophen 325 1 tab PO Q6H PRN pain #14 tabs 07/31/25 08/07/25 Unknown Rx mg tablet prednisone 50 mg tablet 50 mg PO DAILY #5 tabs 07/31/25 08/07/25 Unknown Rx naloxone 4 mg/actuation nasal See Rx Instructions .Route .COMPLEX 08/07/25 08/07/25 Unknown History spray (Narcan) Allergies Allergy/AdvReac Type Severity Reaction Status Date / Time No Known Allergies Allergy Verified 07/31/25 15:55 Current Medications Generic Name Dose Route Start Last Admin Trade Name Freq PRN Reason Stop Dose Admin Norepinephrine Bitartrate 4 mg in 250 mls @ 0 mls/hr 08/07/25 14:45 08/07/25 19:46 Levophed IV 0 mcg/min .Q0M MICHELLE 0 mls/hr Protocol Titration Per Protocol Sodium Chloride 1,000 mls @ 125 mls/hr 08/07/25 16:30 08/08/25 08:47 Sodium Chloride 0.9% IV Not Given .Q8H MICHELLE Piperacillin Sod/Tazobactam 50 mls @ 12.5 mls/hr 08/07/25 19:00 08/08/25 06:17 Sod 3.375 gm/ Sodium Chloride IV 12.5 mls/hr Q12H MICHELLE Administration Protocol Octreotide Acetate 500 mcg/ 101 mls @ 10.1 mls/hr 08/07/25 17:15 08/08/25 03:08 Sodium Chloride IV 50 mcg/hr .Q10H MICHELLE 10.1 mls/hr 50 MCG/HR Administration Pantoprazole Sodium 40 mg 08/08/25 05:00 08/08/25 06:17 Pantoprazole 40 Mg Sdv IVP 40 mg BID MICHELLE Administration Sucralfate 1 gm 08/07/25 21:00 08/08/25 08:08 Sucralfate 1 Gm/10 Ml Oral Liq Udc PO 1 gm AC&BEDTIME MICHELLE Administration PFSH Anesthesia Medical History (Updated 08/08/25 @ 09:45 by Luke Ross MD) Sepsis Pneumothorax Severe tobacco use disorder CKD stage 3b, GFR 30-44 ml/min Smoking addiction Bilateral kidney masses Seen on chest CT 12/20/2023, US Renal ordered 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 Social History Smoking and tobacco/nicotine status: current every day tobacco/nicotine user cigarettes Packs smoked per day: 1.5 Years cigarettes smoked: 40 [ Other cigarette details: Started at 19] Quit status (tobacco/nicotine): not considering quitting Second hand smoke exposure: No Alcohol intake: former Substance/Drug Use: never Highest education level completed: 8th Grade Data Anesthesia 08/08/25 08:48 08/08/25 03:55 Short CBC 08/07/25 08/07/25 08/08/25 Range/Units 12:17 17:22 03:55 WBC 18.71 H 14.45 H (3.29-11.43) 10^3/uL Hgb 6.90 L 7.70 L 7.20 L (11.27-16.99) g/dL Hct 20.5 L* 23.3 L 21.2 L (37-53) % MCV 88.7 87.6 (82-101) fl Plt Count 321 299 (157-399) 10^3/cmm Neut % (Auto) 77.8 72.9 % Neut # (Auto) 14.58 H 10.52 H (1.8-7.7) 10^3/uL BMP 08/07/25 08/07/25 08/08/25 12:17 22:20 03:55 Sodium 132 L 138 141 Potassium 5.6 H 5.2 H 4.4 Chloride 90 L 105 108 H Carbon Dioxide 10 L 15 L 19 L BUN 203 H* D 164 H* 141 H* Creatinine 5.1 H 3.8 H 3.3 H Glucose 197 H 156 H 192 H Calcium 8.3 L 6.8 L 6.6 L Cardiac Enzymes 08/07/25 08/07/25 08/07/25 Range/Units 12:17 12:55 17:22 Troponin T Baseline 139 H* (0-15) ng/L Delta Troponin T -33.4 L (0-10) ABS# Troponin T Hi Sens 6Hr 153.5 H (0-15) ng/L Troponin T Hi Sens 6Hr Delta 14.5 H* (0-12) ng/L NT-Pro-B Natriuret Pep 23532 H (0-125) pg/mL Liver Function 08/07/25 Range/Units 12:17 Total Bilirubin 0.2 (0.15-1.2) mg/dL AST 47 H (0-40) U/L ALT 26 (0-41) U/L Alkaline Phosphatase 48 (40-130) U/L Albumin 3.3 L (3.5-5.2) g/dL Urine 08/07/25 Range/Units 12:40 Urine Color Yellow (Yellow) Urine Appearance Clear (CLEAR) Urine pH 5.0 (5-7) Ur Specific Whitney 1.016 (1.005-1.030) Urine Protein Negative (Negative) Urine Glucose (UA) Negative (Normal) Urine Ketones Negative (Negative) Urine Nitrate Negative (Negative) Urine Bilirubin Negative (Negative) Ur Leukocyte Esterase Negative (Negative) Urine RBC 0-2 (0-2) /hpf Urine WBC 0-5 (0-5) /hpf Blood Bank 08/07/25 12:55 Blood Type O Positive Rho(D) Type Rh positive Antibody Screen Negative COVID Results 08/07/25 12:22 SARS-CoV-2 (PCR) Negative Coags 08/07/25 12:17 PT 14.80 INR 1.09 APTT 25.9 ABG 08/07/25 12:36 Specimen Type Arterial Sample Site Lb ABG pH 7.24 L ABG pCO2 19.5 L* ABG pO2 109.0 H ABG HCO3 8.4 L ABG O2 Saturation 97.4 ABG Base Excess -17.3 L A-a O2 Gradient 1.9 L O2 Delivery Device Ra Microbiology 08/07/25 12:23 Blood Culture - Preliminary Blood SPECIMEN COLLECTED 08/07/25 12:20 Blood Culture - Preliminary Blood SPECIMEN COLLECTED Cardiac Studies: Echocardiogram 08/07/25
[2025-08-08 09:04] LABS: Hematocrit 25.8 % (37-53); Hemoglobin 8.90 g/dL (11.27-16.99)
--- NOTE | 2025-08-08 09:38 | P.CONIM_ITS ---
Providers/Reason For Consult 2 Consulting Physician/Specialty*: Luke Ross MD Reason for Consult*: abnormal EKG Requesting Physician: Charo Peralta MD Attending Physician: Charo Peralta MD Primary Care Provider: Rocky Fuentes MD History of Present Illness History of Present Illness Crispin Yan is a 60 year old male with no known h/o HTN, DM, HLD or cardiac disease who presented to the [facility] ER with mental status changes and melena found to be hypotensive requiring pressors, with severe blood loss anemia and transient ST elevation in the anterior leads. Patient was not a good historian. He received multiple blood transfusions including pRBCs and FFP. BP improved and pressors stopped. HGB improved from 7.7 to 8.9. Patient denies CP and SOB on exam today. Medications/Allergies Home Medications ?Medication ?Instructions ?Recorded ?Confirmed ?Last Taken ?Type lisinopril 40 mg tablet 40 mg PO DAILY #30 tabs 10/2008/07/25 Unknown Rx umeclidinium 62.5 mcg-vilanterol 1 inh inhalation SAVANA Y #60 ea 06/21/25 08/07/25 Unknown Rx 25 mcg/actuation powdr for inhalation (Anoro Ellipta) gabapentin 100 mg capsule 100 mg PO TID 06/29/2508/07 Unknown History albuterol sulfate 90 mcg/actuation 1 inh inhalation QI D PRN shortness 07/12/25 08/07/25 Unknown Rx aerosol inhaler of breath or wheezing #8.5 g ryan methocarbamol 750 mg tablet 750 mg PO Q8H PRN muscle s pasm #30 07/23/25 08/07/25 Unknown Rx tabs hydrocodone 5 mg-acetaminophen 325 1 tab PO Q6H PRN pa in #14 tabs 07/31/25 08/07/25 Unknown Rx mg tablet prednisone 50 mg tablet 50 mg PO DAILY #5 tabs 07/3108/07/25 Unknown Rx naloxone 4 mg/actuation nasal See Rx Instructions .Rou te .COMPLEX 08/07/25 08/07/25 Unknown History spray (Narcan) Allergies Allergy/AdvReac Type Severity Reaction Status Date / Time No Known Allergies Allergy Verified 07/31/25 15:55 Current Medications Generic Name Dose Route Start Last Admin Trade Name Freq PRN Reason Stop Dose Admin Norepinephrine Bitartrate 4 mg in 250 mls @ 0 mls/hr 08/07/25 14:45 08/07/25 19:46 Levophed IV 0 mcg/min .Q0M MICHELLE 0 mls/hr Protocol Titration Per Protocol Sodium Chloride 1,000 mls @ 125 mls/hr 08/07/25 16:30 08/08/25 08:47 Sodium Chloride 0.9% IV Not Given .Q8H MICHELLE Piperacillin Sod/Tazobactam 50 mls @ 12.5 mls/hr 08/07/25 19:00 08/08/25 06:17 Sod 3.375 gm/ Sodium Chloride IV 12.5 mls/hr Q12H MICHELLE Administration Protocol Octreotide Acetate 500 mcg/ 101 mls @ 10.1 mls/hr 08/07/25 17:15 08/08/25 03:08 Sodium Chloride IV 50 mcg/hr .Q10H MICHELLE 10.1 mls/hr 50 MCG/HR Administration Pantoprazole Sodium 40 mg 08/08/25 05:00 08/08/25 06:17 Pantoprazole 40 Mg Sdv IVP 40 mg BID MICHELLE Administration Sucralfate 1 gm 08/07/25 21:00 08/08/25 08:08 Sucralfate 1 Gm/10 Ml Oral Liq Udc PO 1 gm AC&BEDTIME MICHELLE Administration PFSH Acute 2 PFSH: Medical History (Updated 08/08/25 @ 09:45 by Luke Ross MD) Sepsis Pneumothorax Severe tobacco use disorder CKD stage 3b, GFR 30-44 ml/min Smoking addiction Bilateral kidney masses Seen on chest CT 12/20/2023, US Renal ordered 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 Social History Smoking and tobacco/nicotine status: current every day tobacco/nicotine user cigarettes Packs smoked per day: 1.5 Years cigarettes smoked: 40 [ Other cigarette details: Started at 19] Quit status (tobacco/nicotine): not considering quitting Second hand smoke exposure: No Alcohol intake: former Substance/Drug Use: never Highest education level completed: 8th Grade Vitals/I&O/Wt Last Vital Signs Temp 97.9 F 08/08/25 08:15 Pulse 87 08/08/25 08:53 Resp 18 08/08/25 08:53 BP 137/91 08/08/25 08:15 Pulse Ox 98 08/08/25 08:53 O2 Del Method Nasal Cannula 08/08/25 08:53 O2 Flow Rate 4 08/08/25 08:53 08/07/25 08/08/25 08/08/25 22:59 06:59 14:59 Intake Total 3097.444 / 5406.444 1830.25 / 7236.694 350 / 350 Output Total 1275 / 1275 2550 / 3825 Balance 1822.444 / 4131.444 -719.75 / 3411.694 350 / 350 Weight last 48 hrs Weight 138 lb 11.2 oz Weight 138 lb 11.2 oz Weight 160 lb Weight 160 lb Physical Exam 2 Narrative: General: In no acute distress Neck: No jugular venous distention or carotid bruits Heart: Normal S1 and S2 with a regular rate and rhythm, no cardiac murmurs Lungs: Normal respiratory effort with no use of intercostal muscles, clear lungs sounds to auscultation Extremities: No lower extremity edema Neuro: Alert and oriented x 3 Data 08/08/25 08:48 08/08/25 03:55 Micro: Microbiology 08/07/25 12:23 Blood Culture - Preliminary Blood SPECIMEN COLLECTED 08/07/25 12:20 Blood Culture - Preliminary Blood SPECIMEN COLLECTED Other data: Echo 08/07/25: 1. Global hyperdynamic left ventricular systolic function, EF 75%. There is a small area of hypokinesis in the apical septum. 2. Mild hypertrophy of the left ventricular basal septum, 1.4 cm with a mild left ventricular outflow tract pressure gradient of 15 mmHg. 3. Moderately thickened mitral valve leaflets with moderate systolic anterior motion of the anterior mitral valve leaflet which can be seen in hypertrophic cardiomyopathy. 4. Mild mitral valve regurgitation 5. Mildly dilated sinus of Valsalva, measuring 4 cm. 6. Mild pulmonary hypertension, PASP 44 mmHg. A&P Assessment and plan 1. Acute GI bleedin. Acute renal failure superimposed on stage 3b chronic kidney disease: 3. Hemorrhagic shock: 4. Smoking addiction: 5. HTN (hypertension): 6. STEMI (ST elevation myocardial infarction): Plan: 60 yo male with acute GI bleeding, hemorrhagic shock, severe anemia, CARRIE on CKD, acidosis, hypothermia, with STEMI due to demand ischemia and possible underlying CAD, with improvement in hypotension, anemia, and ST elevation after blood transfusions. The patient was NOT having an acute thrombotic ACS and rather had demand myocardial ischemia/infarction. Echo showed hyperdynamic LV function with only a small area of hypokinesis on the apex. Avoid all blood thinning products Although BP now mildly hypertensive, I would not give any antihypertensive medications yet due the the acute GI bleed Patient is cleared from a cardiology standpoint with low cardiac risk for EGD this am. I have discussed this with Dr. Wong last night and the GI surgeon this morning. Will plan for screening stress test to eval for inducible ischemia once Hgb 10 or above and hemodynamically stable May ultimately need LHC but would only do once cleared from GI for possible DAPT if needs coronary stenting PDMP PDMP Reviewed: Not Reviewed Coding Level of Care Code 28502 Diagnoses Acute GI bleeding K92.2 Acute renal failure superimposed on stage 3b chronic kidney disease N17.9; N18.32 Hemorrhagic shock R57.8 Smoking addiction F17.200 HTN (hypertension) I10 STEMI (ST elevation myocardial infarction) I21.3
--- NOTE | 2025-08-08 10:14 | PC.NURSE ---
to gi lab for procedure per staff
--- NOTE | 2025-08-08 10:29 | ANE.PACU2 ---
Inpatient post-anesthesia follow up: Airway intact: Yes Vital signs: Temperature 97.9 F Pulse Rate 98 Respiratory Rate 18 Blood Pressure 160/85 Pulse Oximetry 99 Oxygen Delivery Me thod Nasal Cannula Oxygen Flow Rate 4 Fraction of Inspir ed Oxygen Hydration adequate: Yes Nausea and vomiting: No Pain level: 1 Mental status: Baseline
--- NOTE | 2025-08-08 10:36 | PC.NURSE ---
back from lab
--- NOTE | 2025-08-08 14:27 | P.PN_ITS ---
Subjective 2 Subjective: Patient awake and alert. Underwent EGD and is back from OR. Currently denies complaints Tolerating clear liquids Vitals/I&O/Wt Last Vital Signs Temp 97 F L 08/08/25 11:00 Pulse 80 08/08/25 14:00 Resp 19 H 08/08/25 14:00 BP 157/101 08/08/25 14:00 Pulse Ox 76 L 08/08/25 14:00 O2 Del Method Nasal Cannula 08/08/25 08:53 O2 Flow Rate 4 08/08/25 08:53 08/07/25 08/08/25 08/08/25 22:59 06:59 14:59 Intake Total 3097.444 / 5406.444 1830.25 / 7236.694 646.792 / 646.792 Output Total 1275 / 1275 2550 / 3825 Balance 1822.444 / 4131.444 -719.75 / 3411.694 646.792 / 646.792 Weight last 48 hrs Weight 62.913 kg Weight 62.913 kg Weight 72.575 kg Weight 72.575 kg Physical Exam 2 Const: COMMON NORMALS: patient oriented x3 GENERAL APPEARANCE: comfortable, frail appearing and appears older than stated age; not in distress HENMT: COMMON NORMALS: normocephalic and atraumatic HEAD & SCALP: n ormocephalic and atraumatic Neck/C-Spine: GENERAL: Yes trachea midline, No anterior neck swelling, No tracheal deviation and No Meningeal signs present Resp: OTHER: diminished breath sounds bibasilar with occasional crackles Cardio: COMMON NORMALS: regular rate and regular rhythm JUGULAR VENOUS DISTENTION: no JVD RATE: regular rate RHYTHM: regular rhythm GI: OTHER: soft, non tender, no masses Extremity: OTHER: no clubbing, cyanosis or edema Neuro: COMMON NORMALS: patient oriented x3, moves all extremities and no focal motor deficits Skin: COMMON NORMALS: no rashes or lesions noted GENERAL SKIN EXAM: no rashes or lesions noted Data 08/08/25 08:48 08/08/25 03:55 Micro: Microbiology 08/07/25 12:23 Blood Culture - Preliminary Blood NEGATIVE TO DATE 08/07/25 12:20 Blood Culture - Preliminary Blood NEGATIVE TO DATE CT Abd/Pel: Radiologist's impression: CT Abd/Pel: Radiologist's impression: Exam: CT Abdomen And Pelvis Without Contrast IMPRESSION: 1. Wall thickening of the duodenum which may represent duodenitis. Please correlate clinically. 2. Bilateral renal cysts with hyperdense left renal mass. This measures 5.6 x 4.5 cm without appreciable change. Suggest further evaluation with renal ultrasound CT head IMPRESSION: 1. Age-related atrophy with moderate to extensive patchy hypoattenuation throughout the deep white matter with small focal hypodensities in the subinsular white matter bilaterally, right greater than left. 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 An area of acute ischemia is difficult to exclude given this degree of patchy hypodensity. If clinically indicated, MRI may be helpful for further evaluation. 2. No acute intracranial hemorrhage or significant mass effect seen. 3. Mildly displaced fractures of the nasal spine, which could be acute or chronic. Please correlate clinically. Other data: Echo 08/07/25: 1. Global hyperdynamic left ventricular systolic function, EF 75%. There is a small area of hypokinesis in the apical septum. 2. Mild hypertrophy of the left ventricular basal septum, 1.4 cm with a mild left ventricular outflow tract pressure gradient of 15 mmHg. 3. Moderately thickened mitral valve leaflets with moderate systolic anterior motion of the anterior mitral valve leaflet which can be seen in hypertrophic cardiomyopathy. 4. Mild mitral valve regurgitation 5. Mildly dilated sinus of Valsalva, measuring 4 cm. 6. Mild pulmonary hypertension, PASP 44 mmHg. A&P Assessment and plan 1. Acute GI bleeding: Patient arrived to ED with hypotension, and severe new onset anemia Patient noted to have prior hemoglobin/hematocrit of 14.70/44.8 on 07/23/25. Hemoglobin of 6.9 on arrival yesterday. Patient noted to have large amount of melena on arrival to ICU. Patient acutely hypotensive and underwent emergent placement of central line on arrival to ICU and received NS bolus x 3, as well as levophed. Patient given transfusion of PRBC, platelets and FFP. Hemoglobin improved to 8.7 Patient started on IV protonix and surgery consult with Dr Cintron requested. EGD this AM with findings of duodenitis and single cratered benign ulcer which was clipped. Diet advanced to clear liquids Continue PPI and add carafate. Discussed with Dr Cintron Patient now able to give history and states took prednisone as well as ibuprofen, one daily for past 3 days We will continue to monitor H and H closely Transfuse as needed. Hypotension, likely secondary to acute GI bleed has resolved. 2. Severe anemia: As noted above, with hemoglobin of 6.9, new onset anemia, GI bleed Not on anticoagulation 3. Acute renal failure superimposed on stage 3b chronic kidney disease: Serum creatinine 5.1, on arrival as compared to previous value of 2.0 on 07/23/25 UA obtained and unremarkable Severe metabolic acidosis likely exacerbated by hypotension and GI bleed. Now resolved Monitor renal function. Monitor I/O Home meds reveal he is on lisinopril, which is held Urine output has improved and creatinine is now 3.0 Continue to monitor closely and avoid nephrotoxins 4. Sepsis: Lactic acid elevated to 8.4. Most likely he is not septic He has been started empirically on IV cefepime and vancomycin. Will discontnue Blood cultures obtained, follow No source of infection, likely he is not septic, and hypotension secondary to GI bleed/melena 5. Leukocytosis: WBC elevated to 18.71, continue to monitor Declining. No fever 6. Elevated troponin: Inthe setting of CARRIE, likely non ischemic, type [address] Ross consulted- appreciate recommendations Echo obtained and noted. Outpatient ischemic evaluation with stress test or cardiac cath recommended No anti platelet agents in the setting of gi bleed/anemia 7. Hypothermia: As noted above- temp on arrival 95.5. Improved with fluid resuscitation, blood transfusion Monitor closely in ICU 8. COPD with emphysema: supplemental oxygen and nebs prn 9. Severe tobacco use disorder: Education regarding quitting Plan: DVT prophylaxis- scd Code status- Full Discussed with patient and care team members PDMP PDMP Reviewed: Not Reviewed Attestations 2 Medical Necessity Statement*: Requires further hospitalization for management of GI bleed, hemorrhagic shock, and acute renal failure. Care is expected to cross 2 midnights. and Moderate Time for a total of 45 minutes, includes reviewing past or interval history, examining/interviewing patient, placing orders, discussing plan of care with staff, communicating with other healthcare providers, documenting encounter and coordinating care Diagnoses Acute GI bleeding K92.2 Severe anemia D64.9 Acute renal failure superimposed on stage 3b chronic kidney disease N17.9; N18.32 Sepsis A41.9 Leukocytosis D72.829 Elevated troponin R79.89 Hypothermia T68.XXXA COPD with emphysema J43.9 Severe tobacco use disorder F17.200
[2025-08-08 17:59] LABS: Hematocrit 25.4 % (37-53); Hemoglobin 8.60 g/dL (11.27-16.99)
--- NOTE | 2025-08-08 23:16 | PC.NURSE ---
Octreotide override on OCT is x5 vials of 100mcg Octreotide pulled from the MS pyxis to mix a new 500mcg drip. No additional Octreotide was given outside of the ordered drip rate at this time.
[2025-08-09] VITALS (25 sets, daily range): BP systolic 152–188; BP diastolic 74–112; PULSE 70–107; RESP 15–27; TEMP 36.7–37.2; O2SAT 90–98
--- NOTE | 2025-08-09 02:25 | PC.NURSE ---
Contacted Dr. Wright about moderate black tarry BM, reporting no significant change in VS. Received no new orders, only to follow up with morning labs to ensure H&H are still stable.
[2025-08-09 03:44] LABS: Hematocrit 24.1 % (37-53); Hemoglobin 8.10 g/dL (11.27-16.99); Mean Corpuscular HGB Conc 33.6 g/dL (30-55); Mean Corpuscular Hemoglobin 30.2 pg (27-33); Mean Corpuscular Volume 89.9 fl (82-101); Nucleated Red Blood Cells % 3.7 %; Platelet Count 267 10^3/cmm (157-399); Red Blood Count 2.68 10^6/uL (3.85-5.65); White Blood Count 15.06 10^3/uL (3.29-11.43)
[2025-08-09 04:14] LABS: Anion Gap 12.0 (5-19); Blood Urea Nitrogen 69 mg/dL (6-20); Calcium 7.4 mg/dL (8.5-10.5); Carbon Dioxide 23 mmol/L (22-29); Chloride 111 mmol/L (98-107); Glucose 107 mg/dL (65-115); Osmolality Calculated 315 mOsm/kg (285-295); Potassium 4.0 mmol/L (3.5-5.1); Sodium 142 mmol/L (136-145)
[2025-08-09] MEDS: pantoprazole 40 mg SDV IVP ×2 (04:53→16:56)
[2025-08-09] MEDS: sucralfate 1 gm/10 mL Oral Liq UDC PO ×4 (07:27→20:22)
[2025-08-09] MEDS: octreotide 500 MCG in sodium chloride 0.9% (100 ml) 100 ML 10.1 MCG IV (09:17)
[2025-08-09] MEDS: ondansetron 2 mg/ML SDV 2 mL 4 MG IVP (09:21)
--- NOTE | 2025-08-09 14:53 | P.PN_ITS ---
<Statement entered by Luke Ross MD - 08/09/25 17:56> Patient was evaluated and cared for in conjunction with an advanced practice practitioner. I personally reviewed the chart and all pertinent data. I discussed the patient in detail with the advanced practice practitioner. Please see their note for complete assessment and agreed upon plan of care for the patient. Subjective 2 Subjective: Patient doing well today. Currently no chest pressure no shortness of breath. H&H still low at 8.1 and 24.1. Vitals/I&O/Wt Last Vital Signs Temp 98.4 F 08/09/25 12:00 Pulse 92 08/09/25 14:00 Resp 20 H 08/09/25 14:00 BP 163/92 08/09/25 14:00 Pulse Ox 93 08/09/25 14:00 O2 Del Method Room Air 08/09/25 14:00 O2 Flow Rate 4 08/09/25 09:53 08/08/25 08/09/25 08/09/25 22:59 06:59 14:59 Intake Total 2191 / 2837.792 1960 / 4797.792 1651 / 1651 Output Total 3850 / 3850 2250 / 6100 1850 / 1850 Balance -1659 / -1012.208 -290 / -1302.208 -199 / -199 Weight last 48 hrs Weight 139 lb 3.2 oz Weight 138 lb 11.2 oz Weight 138 lb 11.2 oz Weight 160 lb Physical Exam 2 Narrative: General: No apparent distress Neck: No carotid bruit bilaterally Lymphatic: no lymphedema noted Respiratory: Normal respiratory effort, clear to auscultation bilaterally throughout all lung wang, no use of accessory muscles Cardio: No JVD, regular rate, regular rhythm, S1 S2 normal, no murmurs, peripheral pulses 2+ radial palpated bilaterally Extremities: no cyanosis or edema Neuro: Alert and oriented x4 Psych: Affect normal Skin: No rashes or lesions noted, no wounds Urinary Catheter Management: Chang: Cath Placed During This Visit: no Reason for Continuing Indwelling Catheter: Accurate Measurement of Urinary Output in Critically Ill Patients Data 08/09/25 03:16 08/09/25 03:16 Micro: Microbiology 08/07/25 12:23 Blood Culture - Preliminary Blood NEGATIVE TO DATE 08/07/25 12:20 Blood Culture - Preliminary Blood NEGATIVE TO DATE A&P Assessment and plan 1. Acute GI bleedin. Acute renal failure superimposed on stage 3b chronic kidney disease: 3. Hemorrhagic shock: 4. Smoking addiction: 5. HTN (hypertension): 6. STEMI (ST elevation myocardial infarction): Plan: Patient had scope yesterday that showed duodenal ulcer which was treated. He is still anemic. Once hemoglobin at least to 10 will screen with a stress test. Patient is currently hemodynamically stable. Will allow for permissive hypertension at this time due to acute GI bleed. If patient needs left heart cath then would need clearance from GI for possible dual antiplatelet therapy. At this time, patient asymptomatic. Continue to monitor. PDMP PDMP Reviewed: Not Reviewed Attestations 2 Medical Necessity Statement*: Deferred to primary. Coding Level of Care Code Acute Code for [facility] Fwd Diagnoses Acute GI bleeding K92.2 Acute renal failure superimposed on stage 3b chronic kidney disease N17.9; N18.32 Hemorrhagic shock R57.8 Smoking addiction F17.200 HTN (hypertension) I10 STEMI (ST elevation myocardial infarction) I21.3
--- NOTE | 2025-08-09 22:06 | P.PN_ITS ---
Subjective 2 Subjective: Patient doing well today. Currently no chest pressure no shortness of breath. feeling better and did not complain of any blood in the stools. CBC around 8.10, BP maiintained without vasopressors Vitals/I&O/Wt Last Vital Signs Temp 98.0 F 08/09/25 20:00 Pulse 82 08/09/25 20:00 Resp 22 H 08/09/25 20:00 BP 172/105 08/09/25 20:00 Pulse Ox 94 08/09/25 20:00 O2 Del Method Room Air 08/09/25 20:00 O2 Flow Rate 4 08/09/25 09:53 08/09/25 08/09/25 08/09/25 06:59 14:59 22:59 Intake Total 1960 / 4797.792 1651 / 1651 560 / 2211 Output Total 2250 / 6100 1850 / 1850 1450 / 3300 Balance -290 / -1302.208 -199 / -199 -890 / -1089 Weight last 48 hrs Weight 63.14 kg Weight 62.913 kg Weight 62.913 kg Physical Exam 2 Narrative: General: Alert and oriented, lying comfortably without any distress, pallor positive, adequate capillary refill HEENT: Normocephalic, atraumatic, grossly unremarkable exam Cardio: normal rate rhythm, normal S1-S2 without any murmurs, rubs, or gallops and JVD normal Respiratory: normal vascular breathing on auscultation without any wheezes, stridor, rhonchi GI: Abdomen soft, mild tenderness at the epigastric region, nondistended, normoactive bowel sounds present all 4 quadrants, Neuro: intact cranial nerves motor and sensory and cerebellar/coordination function without any focal neurological deficit Behavior: Appropriate and cooperative Extremities: Adequate palpable pulses, no edema or cyanosis observed Skin: pallor +sander Urinary Catheter Management: Chang: Cath Placed During This Visit: no Reason for Continuing Indwelling Catheter: Accurate Measurement of Urinary Output in Critically Ill Patients Data 08/09/25 03:16 08/09/25 03:16 A&P Assessment and plan 1. Acute GI bleeding: Patient arrived to ED with hypotension, and severe new onset anemia Patient noted to have prior hemoglobin/hematocrit of 14.70/44.8 on 07/23/25. Hemoglobin of 6.9 on arrival. Patient noted to have large amount of melena on arrival to ICU. Patient acutely hypotensive and underwent emergent placement of central line on arrival to ICU and received NS bolus x 3, as well as levophed. Patient given transfusion of PRBC, platelets and FFP. Hemoglobin improved to 8.7 Patient started on IV protonix and surgery consult with Dr Cintron requested. EGD showed duodenitis and single cratered benign ulcer which was clipped. Diet advanced to clear liquids Continue PPI and add carafate. patient reported using NSAIDS and steroids Transfuse to keep the hb>7 maintain MAP above 7 2. Severe anemia: Acute blood loss anemia secondary to NSAIDS induced duodenal ulcer, currently stable and cont to monitor Not on anticoagulation SCDs for VTE 3. Acute renal failure superimposed on stage 3b chronic kidney disease: Serum creatinine 5.1, likely dehydration and currently around baseline after resuscitation 2.1 UA obtained and unremarkable Severe metabolic acidosis likely exacerbated by hypotension and GI bleed. Now resolved Monitor renal function. Monitor I/O Home meds reveal he is on lisinopril, which is held Continue to monitor closely and avoid nephrotoxins 4. Sepsis: Lactic acid elevated to 8.4. and improved to 1.7 after resuscitation, likely related to dehydration. less likely to be septic He has been started empirically on IV cefepime and vancomycin and was discontinued, no fever spikes and blood cultures till date negative cont to monitor with respect to signs symptoms and hemodynamics 5. Leukocytosis: WBC elevated to 18.71, continue to monitor Declining. No fever 6. Elevated troponin: Inthe setting of CARRIE, likely non ischemic, type [address] Ross consulted- appreciate recommendations and is likey in the setting of mismatch. Echo obtained and noted. Outpatient ischemic evaluation with stress test or cardiac cath recommended No anti platelet agents in the setting of gi bleed/anemia 7. Hypothermia: As noted above- temp on arrival 95.5. Improved with fluid resuscitation, blood transfusion Monitor closely in ICU 8. Panlobular emphysema: supplemental oxygen and nebs prn 9. Severe tobacco use disorder: Education regarding quitting Plan: DVT prophylaxis- scd Code status- Full Discussed with patient and care team members PDMP PDMP Reviewed: Not Reviewed Attestations 2 Medical Necessity Statement*: The patient will stay over 2 midnights for the management of acute blood loss anemia, ACS/type II WA with cardiology on board, and further optimization of care Time Spent in Patient Care: 16 - 35 minutes (>than 50% of time sp ent in counselling and/or direct pt care on unit) . Critical Care Time: The high probability of a clinically significant, sudden or life threatening deterioration, as referenced in this documentation, required my full and direct attention, intervention and personal management. The critical care time shown is in addition to time spent performing any reported separately billable procedures and includes the following: [x] Data and vital sign review and interpretation [x ] Patient assessment, examination and intervention [x] Medication orders and management [x] Patient/Family updates as able [x] Care Coordination and Documentation. Critical Care Time (min): 35 Other Attestations: Patient condition has been discussed at length with the patient/family, I have independently reviewed the chart labs imaging/diagnostics/EKG. the goals of care and code status with the patient/family/NOK/legal screening representative, and documented accordingly. I have reconciled the medications after confirmation/comorbidities/current clinical condition. The management has been done according to the current clinical condition with respect to patient goals of care and based on recommendations/guidelines. The patient/family has been informed about the current condition and further plan of care. Agreed with the plan of care and understood without any language barrier. Every effort was made to ensure accuracy of lab specialist. Any obvious errors or omissions should be clarified with the author of the document. Coding Level of Care Code Critical Care >/= 30 minutes Diagnoses Acute GI bleeding K92.2 Severe anemia D64.9 Acute renal failure superimposed on stage 3b chronic kidney disease N17.9; N18.32 Sepsis A41.9; R65.20 Sepsis acute organ dysfunction status: with acute organ dysfunction Sepsis type: sepsis due to unspecified organism Severe sepsis acute organ dysfunction type: unspecified Severe sepsis shock status: without septic shock Leukocytosis D72.829 Elevated troponin R79.89 Hypothermia T68.XXXA Panlobular emphysema J43.9 Severe tobacco use disorder F17.200
[2025-08-10] VITALS (14 sets, daily range): BP systolic 136–165; BP diastolic 89–107; PULSE 83–105; RESP 13–24; TEMP 36.4–36.9; O2SAT 92–100
[2025-08-10 05:15] LABS: Mean Corpuscular HGB Conc 33.7 g/dL (30-55); Mean Corpuscular Hemoglobin 30.9 pg (27-33); Mean Corpuscular Volume 91.8 fl (82-101); Nucleated Red Blood Cells % 1.3 %; Platelet Count 246 10^3/cmm (157-399); Red Blood Count 2.07 10^6/uL (3.85-5.65); White Blood Count 19.37 10^3/uL (3.29-11.43)
[2025-08-10 05:29] LABS: Hematocrit 19.0 % (37-53); Hemoglobin 6.40 g/dL (11.27-16.99)
--- NOTE | 2025-08-10 05:37 | PC.NURSE ---
Notified Dr. Wright of critical Hgb/Hct 6.4/19.0. Received orders for 2 units PRBC, and Octreotide drip 50mcg/hr.
[2025-08-10 05:38] LABS: Anion Gap 11.0 (5-19); Blood Urea Nitrogen 51 mg/dL (6-20); Calcium 7.1 mg/dL (8.5-10.5); Carbon Dioxide 24 mmol/L (22-29); Chloride 110 mmol/L (98-107); Glucose 120 mg/dL (65-115); Osmolality Calculated 307 mOsm/kg (285-295); Potassium 4.0 mmol/L (3.5-5.1); Sodium 141 mmol/L (136-145)
[2025-08-10] MEDS: pantoprazole 40 mg SDV IVP (05:52)
[2025-08-10] MEDS: octreotide 500 MCG in sodium chloride 0.9% (100 ml) 100 ML 10.1 MCG IV (05:52)
--- NOTE | 2025-08-10 06:39 | PC.NURSE ---
Spoke with Dr. Wright at bedside who was assessing patient. Dr. cMneal will be by to see the patient but there is a potential for a transfer for interventional radiology.
--- NOTE | 2025-08-10 06:52 | P.PN_ITS ---
Subjective 2 Subjective: Patient doing well today. Currently no chest pressure no shortness of breath. feeling better and did not complain of any blood in the stools. CBC around 8.10, BP maiintained without vasopressors Medications: Medication Review Details: 60-year-old male admitted on 1 10/08/2024 received 4 units packed red cells 2 units FFP and 1 or 2 units of platelets. He was on octreotide and PPI plus Carafate and underwent EGD which showed a duodenal ulcer with stigmata of recent bleeding. This was clipped by Dr. Cintron. Octreotide was stopped on 08/09/2025. Patient had stable hematocrit 24 with hemoglobin 8 until this morning when his hemoglobin dropped to 6.4 hematocrit 19. I restarted octreotide with a 50 mcg bolus and a 50 mcg an hour drip. Patient had 1 large melanotic stool since that time. We have ordered 2 units packed red cells. Platelets at 242 and last INR was 1.09 on 08/07/2025. Patient is not on anticoagulation. He was on prednisone 50 mg daily for recent COPD exacerbation. He was rumor to have been on NSAIDs but when I interviewed him the other day he stated it was just 1 ibuprofen 200 mg daily plus his Tylenol for pain. Vitals/I&O/Wt Last Vital Signs Temp 98.2 F 08/10/25 06:37 Pulse 101 H 08/10/25 06:37 Resp 17 08/10/25 06:37 BP 154/89 08/10/25 06:37 Pulse Ox 97 08/10/25 06:37 O2 Del Method Room Air 08/10/25 06:00 O2 Flow Rate 4 08/09/25 09:53 08/09/25 08/09/25 08/10/25 14:59 22:59 06:59 Intake Total 1651 / 1651 780 / 2431 0 / 2431 Output Total 1850 / 1850 1450 / 3300 700 / 4000 Balance -199 / -199 -670 / -869 -700 / -1569 Weight last 48 hrs Weight 66.088 kg Weight 63.14 kg Physical Exam 2 Narrative: General well-developed well-nourished male in no acute cardiopulmonary stress He has a left neck IJ CV regular tachycardic rhythm Lungs clear to auscultation bilaterally Abdomen positive bowel tones soft nontender no rebound Calves no tenderness cords or pretibial edema Urinary Catheter Management: Chang: Cath Placed During This Visit: no Reason for Continuing Indwelling Catheter: Accurate Measurement of Urinary Output in Critically Ill Patients Data 08/10/25 04:36 08/10/25 04:36 A&P Assessment and plan 1. Acute GI bleeding: Patient with octreotide stopped yesterday morning and has had acute bleeding with hemoglobin drop to 6.4 from 8.1. I ordered 2 units packed red cells and restarted him on octreotide 50 mcg bolus and 50 mcg an hour. I have called [facility] transfer line and am waiting to hear back from them on my cell phone for zipper setter. I spoke with Dr. Mcneal who recommends transfer for IR guided embolization of the bleeding artery 2. Severe anemia: Acute blood loss anemia secondary to NSAIDS induced duodenal ulcer, Recurrent bleeding with recommendation from Dr. Mcneal for transfer for IR guided embolization Not on anticoagulation SCDs for VTE 3. Acute renal failure superimposed on stage 3b chronic kidney disease: Patient's baseline creatinine 1.6 bumped to 5.1 with the acute bleeding, hypotension requiring Levophed and central line. This has improved and hematocrit creatinine now 1.5. I am going to hold off on performing CTA here as it would likely need to be repeated. 4. Sepsis: Initial lactic acid elevated to 8.4. and improved to 1.7 after resuscitation, likely related to dehydration. less likely to be septic He has been started empirically on IV cefepime and vancomycin and was discontinued, no fever spikes and blood cultures till date negative cont to monitor with respect to signs symptoms and hemodynamics This resolved with resuscitation and octreotide stoppage of bleeding 5. Leukocytosis: White count persists at 19.37 but abdomen is benign and no source of infection found. Patient is not on antibiotics empirically no fever 6. Elevated troponin: Inthe setting of CARRIE, likely non ischemic, type [address] Ross consulted- appreciate recommendations and is likey in the setting of mismatch. Echo obtained and noted. Outpatient ischemic evaluation with stress test or cardiac cath recommended No anti platelet agents in the setting of gi bleed/anemia 7. Hypothermia: As noted above- temp on arrival 95.5. Improved with fluid resuscitation, blood transfusion Monitor closely in ICU 8. Panlobular emphysema: supplemental oxygen and nebs prn 9. Severe tobacco use disorder: Education regarding quitting Plan: DVT prophylaxis- scd Code status- Full Discussed with patient and care team members PDMP PDMP Reviewed: Not Reviewed Attestations 2 Medical Necessity Statement*: Patient remains in the ICU with octreotide with plans to transfer to tertiary care for IR. I have also asked Dr. Mcneal to reconsult and evaluate for options for intervention or EGD as he deems appropriate Coding Level of Care Code Acute Code for [facility] Fwd Diagnoses Acute GI bleeding K92.2 Severe anemia D64.9 Acute renal failure superimposed on stage 3b chronic kidney disease N17.9; N18.32 Sepsis A41.9; R65.20 Sepsis acute organ dysfunction status: with acute organ dysfunction Sepsis type: sepsis due to unspecified organism Severe sepsis acute organ dysfunction type: unspecified Severe sepsis shock status: without septic shock Leukocytosis D72.829 Elevated troponin R79.89 Hypothermia T68.XXXA Panlobular emphysema J43.9 Severe tobacco use disorder F17.200 Time Spent (min) 55
--- NOTE | 2025-08-10 07:01 | P.CONIM_ITS ---
Providers/Reason For Consult 2 Consulting Physician/Specialty*: dr collazo general surgery Reason for Consult*: melena Attending Physician: Jessica Stephens MD Primary Care Provider: Rocky Fuentes MD History of Present Illness History of Present Illness Crispin Yan is a 60 year old male whom surgery was consulted again to evaluate for GI bleed. Patient denies any hematochezia. Patient reports melanotic stool. I discussed with the nurse and there are reports of dark bowel movements but no obvious melena. EGD performed [address] Cintron showed no evidence of an upper GI bleed. There was a small ulcer that was clipped but this was not done for bleeding. Cardiology is on board for a STEMI. Hemoglobin did drop from 8-6. Hemodynamically appropriate. Medications/Allergies Home Medications ?Medication ?Instructions ?Recorded ?Confirmed ?Last Taken ?Type lisinopril 40 mg tablet 40 mg PO DAILY #30 tabs 10/2008/07/25 Unknown Rx umeclidinium 62.5 mcg-vilanterol 1 inh inhalation SAVANA Y #60 ea 06/21/25 08/07/25 Unknown Rx 25 mcg/actuation powdr for inhalation (Anoro Ellipta) gabapentin 100 mg capsule 100 mg PO TID 06/29/2508/07 Unknown History albuterol sulfate 90 mcg/actuation 1 inh inhalation QI D PRN shortness 07/12/25 08/07/25 Unknown Rx aerosol inhaler of breath or wheezing #8.5 g ryan methocarbamol 750 mg tablet 750 mg PO Q8H PRN muscle s pasm #30 07/23/25 08/07/25 Unknown Rx tabs hydrocodone 5 mg-acetaminophen 325 1 tab PO Q6H PRN pa in #14 tabs 07/31/25 08/07/25 Unknown Rx mg tablet prednisone 50 mg tablet 50 mg PO DAILY #5 tabs 07/3108/07/25 Unknown Rx naloxone 4 mg/actuation nasal See Rx Instructions .Rou te .COMPLEX 08/07/25 08/07/25 Unknown History spray (Narcan) Allergies Allergy/AdvReac Type Severity Reaction Status Date / Time No Known Allergies Allergy Verified 07/31/25 15:55 Current Medications Generic Name Dose Route Start Last Admin Trade Name Freq PRN Reason Stop Dose Admin Sodium Chloride 1,000 mls @ 50 mls/hr 08/07/25 16:30 08/09/25 13:40 Sodium Chloride 0.9% IV 50 mls/hr .Q20H MICHELLE Administration Octreotide Acetate 500 mcg/ 101 mls @ 10.1 mls/hr 08/10/25 05:45 08/10/25 05:52 Sodium Chloride IV 50 mcg/hr .Q10H MICHELLE 10.1 mls/hr 50 MCG/HR Administration Lisinopril 40 mg 08/09/25 21:30 08/09/25 21:30 Lisinopril 20 Mg Tablet PO 40 mg DAILY MICHELLE Administration Nicotine 1 patch 08/09/25 04:20 08/10/25 05:52 Nicotine 21 Mg Patch TRANSDERMA 1 patch DAILY MICHELLE Administration Ondansetron HCl 4 mg 08/07/25 16:23 08/09/25 09:21 Ondansetron 2 Mg/Ml Sdv 2 Ml IVP 4 mg Q6H PRN Administration NAUSEA AND VOMITING Pantoprazole Sodium 40 mg 08/08/25 05:00 08/10/25 05:52 Pantoprazole 40 Mg Sdv IVP 40 mg BID MICHELLE Administration Sucralfate 1 gm 08/07/25 21:00 08/09/25 20:22 Sucralfate 1 Gm/10 Ml Oral Liq Udc PO 1 gm AC&BEDTIME MICHELLE Administration PFSH Acute 2 PFSH: Medical History (Updated 08/08/25 @ 14:45 by Charo Peralta MD) Sepsis Pneumothorax Severe tobacco use disorder CKD stage 3b, GFR 30-44 ml/min Smoking addiction Bilateral kidney masses Seen on chest CT 12/20/2023, US Renal ordered 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 Social History Smoking and tobacco/nicotine status: current every day tobacco/nicotine user cigarettes Packs smoked per day: 1.5 Years cigarettes smoked: 40 [ Other cigarette details: Started at 19] Quit status (tobacco/nicotine): not considering quitting Second hand smoke exposure: No Alcohol intake: former Substance/Drug Use: never Highest education level completed: 8th Grade Vitals/I&O/Wt Last Vital Signs Temp 98.2 F 08/10/25 06:37 Pulse 101 H 08/10/25 06:37 Resp 17 08/10/25 06:37 BP 154/89 08/10/25 06:37 Pulse Ox 97 08/10/25 06:37 O2 Del Method Room Air 08/10/25 06:00 O2 Flow Rate 4 08/09/25 09:53 08/09/25 08/10/25 08/10/25 22:59 06:59 14:59 Intake Total 780 / 2431 0 / 2431 Output Total 1450 / 3300 700 / 4000 Balance -670 / -869 -700 / -1569 Weight last 48 hrs Weight 145 lb 11.2 oz Weight 139 lb 3.2 oz Physical Exam 2 Narrative: Chest: Unlabored breathing room air. No lymphadenopathy. Heart: Regular rate and rhythm. Abdomen: Soft, nontender, nondistended. No masses or lymphadenopathy. Urinary Catheter Management: Chang: Cath Placed During This Visit: no Reason for Continuing Indwelling Catheter: Accurate Measurement of Urinary Output in Critically Ill Patients Data 08/10/25 04:36 08/10/25 04:36 A&P Assessment and plan 1. Melena: Plan: 60-year-old male whom surgery was consulted again for GI bleed. EGD on 08/08/2025 did not identify an upper GI bleed. A small ulcer was found and it was clipped but there was no evidence of bleeding from it. In speaking with the nurse and the patient there is no hematochezia, perhaps some dark bowel movements but no cassidy melena. I have discussed with the patient extensively and answered all of his questions. Since he is admitted also for a STEMI I do not think proceeding with a colonoscopy prep is the safest route at this time since we do not have identified a source. I recommend proceeding with CTA. Discussed with hospitalist. PDMP PDMP Reviewed: Not Reviewed Coding Level of Care Code 66618 Diagnoses Melena K92.1
[2025-08-10] MEDS: sucralfate 1 gm/10 mL Oral Liq UDC PO (07:53)
--- NOTE | 2025-08-10 08:14 | P.TS_ITS ---
Transfer Summary Providers Date of Admission: 08/07/25 13:34 Date of Discharge/Transfer: 08/10/25 Attending Provider at Admission: Charo Peralta MD Attending Provider at Transfer: Jessica Stephens MD Primary Care Provider: Rocky Fuentes MD Transfer Plans: Anticipated date of transfer: 08/10/25 . Diagnoses at Discharge Discharge Diagnosis 1. Melena: Reason for Visit Reason for Visit weakness Brief History: As per the previous retrospective admitting physician note Crispin Yan is a 60 year old male with unknown past medical history who was brought to ED with 3 days history of weakness. He was unable to provide any history. On arrival, he was hypothermic and noted to be anemic with hemoglobin of 6.9, with previous hemoglobin of 14.70. Additional pertinent labs reveal WBC of 12.83, sodium of 132, potassium of 5.6, BUN 203, creatinine 5.1, lactic acid 8.2. Troponin 139 in the setting of acute renal failure. Patient hypotensive and reportedly declined blood transfusion as well as central line placement for pressors. Patient lives with roommate. No family available. Patient was reportedly alert and oriented in ED.Per ED provider, patient declined transfusion and central line placement. I went to ED to assess patient, however, patient was in Imaging, and subsequently arrived to ICU. On arrival to ICU, patient obtunded and hypotensive and hypothermic. Patient unable to give any consent and I called sister Jane, next of kin, and received consent for line placement and blood transfusion. Patient received a dose of vancomycin in ED. Given 1 L of IVF. Blood cultures obtained and patient started on IVF, transfusion of PRBC and levophed. Additionally, patient noted to have gross melena on arrival to ICU. CT results pending at time of arrival. Hospital Course Hospital Course Patient admitted to ICU as a case of GI bleed, underwent endoscopy and found to have duodenal ulcer and was started on PPI twice daily and Carafate. The patient further informed that he has been taking steroids prednisone 40 and i buprofen from the last couple of days however never had such episode in the past and did not use to drink a lot of alcohol or any other previous history of ulcers. He also was given blood transfusion accordingly to maintain the hemoglobin above 7. During his stay the patient was also found to have mild troponins leak which was likely related to mismatch and cardiology was consulted. He was not given any anticoagulation or any NSAIDs during his stay in the light of severe life-threatening bleed. The patient hemoglobin post endoscopy remained stable for couple of hours and his requirement for nor epi was titrated and was off. He was maintaining his MAP during his hospital stay post endoscopy and transfusion. However overnight the patient had massive melena with significant drop in hemoglobin but hemodynamically the patient was more or less maintaining MAP above 65. He was alert and oriented. And initiated transfer for possible IR guided procedure/embolization of the culprit vessel leading to GI bleed?. Furthermore CTA was also being considered however in the light of severe class III CARRIE during admission with a creatinine of 5, the patient carries high risk therefore his transfer was initiated urgently considering that the patient may need higher level of care requiring IR/GI/surgery? And considering the limitation of management here, patient transferred initiated and he was informed and accepted. Patient condition has been discussed at length with the patient/family, I have independently reviewed the chart labs imaging/diagnostics/EKG. the goals of care and code status with the patient/family/NOK/legal financial sales representative, and documented accordingly. I have reconciled the medications after confirmation/comorbidities/current clinical condition. The management has been done according to the current clinical condition with respect to patient goals of care and based on recommendations/guidelines. The patient/family has been informed about the current condition and further plan of care. Agreed with the plan of care and understood without any language barrier. Every effort was made to ensure accuracy of electric sealing machine operator. Any obvious errors or omissions should be clarified with the author of the document. Physical Exam Narrative: General: Alert and oriented, lying comfortably without any distress, pallor positive, adequate capillary refill HEENT: Normocephalic, atraumatic, grossly unremarkable exam Cardio: normal rate rhythm, normal S1-S2 without any murmurs, rubs, or gallops and JVD normal Respiratory: normal vascular breathing on auscultation without any wheezes, stridor, rhonchi GI: Abdomen soft, mild tenderness at the epigastric region, nondistended, normoactive bowel sounds present all 4 quadrants, with patricia spots seen on the bed sheet when the patient was being cleaned by the nurses Neuro: intact cranial nerves motor and sensory and cerebellar/coordination function without any focal neurological deficit Behavior: Appropriate and cooperative Extremities: Adequate palpable pulses, no edema or cyanosis observed Skin: pallor +sander Urinary Catheter Management: Chang: Cath Placed During This Visit: no Reason for Continuing Indwelling Catheter: Accurate Measurement of Urinary Output in Critically Ill Patients TS Data Studies Completed and Pending Pending at discharge Category Date Time Status ABO/Rh Type Routine Lab 08/07/25 12:55 Results Blood Culture Stat Lab 08/07/25 12:23 Results Complete Crossmatch Routine Lab 08/07/25 12:55 Results FFP [Frozen Plasma FZ <24 1st Cont] Routine Lab 08/07/25 12:55 Results PACKED CELLS [Leukocyte Reduced RBC] Routine Lab 08/07/25 12:55 Results Platelets Leuko-Reduced Stat Lab 08/07/25 12:55 Results Type and Screen Routine Lab 08/07/25 12:55 Results Completed Studies During Hospitalization Category [place] [id number] Stat Cat Scan 08/07/25 12:[address] head wo con* [id number] Urgent Cat Scan 08/07/25 12:13 Completed XR chest 1V portable [id number] Routine Exams 08/07/25 15:12 Completed XR chest 1V portable [id number] Stat Exams 08/07/25 12:11 Completed CV. echo complete* [id number] Routine Ultrasound 08/07/25 16:28 Completed Laboratory Last Values WBC 19.37 10^3/uL (3.29-11.43) H 08/10/25 04:36 RBC 2.07 10^6/uL (3.85-5.65) L 08/10/25 04:36 Hgb 6.40 g/dL (11.27-16.99) L* 08/10/25 04:36 Hct 19.0 % (37-53) L* 08/10/25 04:36 MCV 91.8 fl (82-101) 08/10/25 04:36 MCH 30.9 pg (27-33) 08/10/25 04:36 MCHC 33.7 g/dL (30-55) 08/10/25 04:36 RDW 15.2 % (12.1-15.1) H 08/10/25 04:36 Plt Count 246 10^3/cmm (157-399) 08/10/25 04:36 MPV 9.8 fL (7.4-10.4) 08/10/25 04:36 Neut % (Auto) 73.3 % 08/10/25 04:36 Lymph % (Auto) 12.7 % 08/10/25 04:36 Rains % (Auto) 10.7 % 08/10/25 04:36 Eos % (Auto) 0.5 % 08/10/25 04:36 Baso % (Auto) 0.1 % 08/10/25 04:36 Neut # (Auto) 14.19 10^3/uL (1.8-7.7) H 08/10/25 04:36 Lymph # (Auto) 2.5 10^3/uL (0.8-4.8) 08/10/25 04:36 Rains # (Auto) 2.1 10^3/uL (0.2-0.9) H 08/10/25 04:36 Eos # (Auto) 0.1 10^3/uL (0.0-0.8) 08/10/25 04:36 Baso # (Auto) 0.0 10^3/uL (0.0-0.1) 08/10/25 04:36 Nucleated RBC % (auto) 1.3 % 08/10/25 04:36 Nucleated RBCs # 0.3 /100WBC 08/10/25 04:36 PT 14.80 SECONDS (12.1-14.9) 08/07/25 12:17 INR 1.09 (0.8-1.2) 08/07/25 12:17 APTT 25.9 SECONDS (23.9-36.7) 08/07/25 12:17 Specimen Type Arterial 08/07/25 12:36 Sample Site Lb 08/07/25 12:36 ABG pH 7.24 (7.35-7.45) L 08/07/25 12:36 ABG pCO2 19.5 mmHg (35-45) L* 08/07/25 12:36 ABG pO2 109.0 mmHg (80.0-100.0) H 08/07/25 12:36 ABG HCO3 8.4 mmol/L (22-26) L 08/07/25 12:36 ABG O2 Saturation 97.4 08/07/25 12:36 ABG Base Excess -17.3 mmol/L (-2.0-2.0) L 08/07/25 12:36 Gerald Test Pos 08/07/25 12:36 A-a O2 Gradient 1.9 mmHg (5-10) L 08/07/25 12:36 Hematocrit 18.0 % (42-52) L 08/07/25 12:36 Hgb O2 Saturation 94.6 % (95-100) L 08/07/25 12:36 Carboxyhemoglobin 0.8 %THgb (0.4-20.1) 08/07/25 12:36 Methemoglobin 2.0 % (0.4-1.5) H 08/07/25 12:36 Total Hemoglobin 5.9 g/dL (14-18) L 08/07/25 12:36 Sodium 134.0 mmol/L (131-143) 08/07/25 12:36 Potassium 4.7 mmol/L (3.5-5.0) 08/07/25 12:36 Glucose 143.0 mg/dL (70-115) H 08/07/25 12:36 Ionized Calcium 1.0 mmol/L (1.1-1.4) L 08/07/25 12:36 O2 Delivery Device Ra 08/07/25 12:36 Electric Sealing Machine Operator ID Glc 08/07/25 12:36 Sodium 141 mmol/L (136-145) 08/10/25 04:36 Potassium 4.0 mmol/L (3.5-5.1) 08/10/25 04:36 Chloride 110 mmol/L (98-107) H 08/10/25 04:36 Carbon Dioxide 24 mmol/L (22-29) 08/10/25 04:36 Anion Gap 11.0 (5-19) 08/10/25 04:36 BUN 51 mg/dL (6-20) H 08/10/25 04:36 Creatinine 1.5 mg/dL (0.7-1.2) H 08/10/25 04:36 GFR Calculation 48.1 mL/min (90-130) L 08/10/25 04:36 Glucose 120 mg/dL (65-115) H 08/10/25 04:36 POC Glucose 134 mg/dL (70-110) H 08/07/25 20:49 Calculated Osmolality 307 mOsm/kg (285-295) H 08/10/25 04:36 Lactic Acid 8.2 mmol/L (0.5-2.2) H* 08/07/25 12:17 Lactic Acid (Sepsis) 1.7 mmol/L (0.5-2.2) 08/07/25 17:22 Calcium 7.1 mg/dL (8.5-10.5) L 08/10/25 04:36 Magnesium 3.0 mg/dL (1.7-2.3) H 08/07/25 12:17 Iron 84 ug/dL (59-158) 08/07/25 22:20 TIBC 230 mcg/dl 08/07/25 22:20 % Saturation 36.5 % (20-50) 08/07/25 22:20 Unsat Iron Binding 146 ug/dL (112-347) 08/07/25 22:20 Total Bilirubin 0.2 mg/dL (0.15-1.2) 08/07/25 12:17 AST 47 U/L (0-40) H 08/07/25 12:17 ALT 26 U/L (0-41) 08/07/25 12:17 Alkaline Phosphatase 48 U/L (40-130) 08/07/25 12:17 Troponin T Baseline 139 ng/L (0-15) H* 08/07/25 12:17 Troponin T 60 Minute 105.6 ng/L (0-15) H 08/07/25 12:55 Delta Troponin T -33.4 ABS# (0-10) L 08/07/25 12:55 Troponin T Hi Sens 6Hr 153.5 ng/L (0-15) H 08/07/25 17:22 Troponin T Hi Sens 6Hr Delta 14.5 ng/L (0-12) H* 08/07/25 17:22 NT-Pro-B Natriuret Pep 62644 pg/mL (0-125) H 08/07/25 12:17 Total Protein 5.1 g/dL (6.6-8.7) L 08/07/25 12:17 Albumin 3.3 g/dL (3.5-5.2) L 08/07/25 12:17 Globulin 1.8 g/dL (1.3-4.6) 08/07/25 12:17 Lipase 49 U/L (13-60) 08/07/25 12:17 Urine Color Yellow (Yellow) 08/07/25 12:40 Urine Appearance Clear (CLEAR) 08/07/25 12:40 Urine pH 5.0 (5-7) 08/07/25 12:40 Ur Specific [place] 1.016 (1.005-1.030) 08/07/25 12:40 Urine Protein Negative (Negative) 08/07/25 12:40 Urine Glucose (UA) Negative (Normal) 08/07/25 12:40 Urine Ketones Negative (Negative) 08/07/25 12:40 Urine Blood Negative (Negative) 08/07/25 12:40 Urine Nitrate Negative (Negative) 08/07/25 12:40 Urine Bilirubin Negative (Negative) 08/07/25 12:40 Urine Urobilinogen 0.2 mg/dL (Negative) 08/07/25 12:40 Ur Leukocyte Esterase Negative (Negative) 08/07/25 12:40 Urine RBC 0-2 /hpf (0-2) 08/07/25 12:40 Urine WBC 0-5 /hpf (0-5) 08/07/25 12:40 Ur Squamous Epith Cells 0-5 /hpf (0-5) 08/07/25 12:40 Amorphous Sediment Not Reportable 08/07/25 12:40 Urine Bacteria None seen /hpf (NONE) 08/07/25 12:40 Hyaline Casts 14.47 /lpf 08/07/25 12:40 Random Vancomycin 8.8 ug/mL (20.0-40.0) L 08/08/25 15:50 Urine Opiates Screen Positive ng/mL (Negative) H 08/07/25 12:40 Ur Barbiturates Screen Negative ng/mL (Negative) 08/07/25 12:40 Ur Phencyclidine Scrn Negative ng/mL (Negative) 08/07/25 12:40 Ur Amphetamines Screen Negative ng/mL (Negative) 08/07/25 12:40 U Benzodiazepines Scrn Negative ng/mL (Negative) 08/07/25 12:40 Urine Cocaine Screen Negative ng/mL (Negative) 08/07/25 12:40 U Marijuana (THC) Screen Negative ng/mL (Negative) 08/07/25 12:40 Ethyl Alcohol < 10 mg/dL (0-10) 08/07/25 12:17 Influenza A (PCR) Negative (Negative) 08/07/25 12:22 Influenza Type B (PCR) Negative (Negative) 08/07/25 12:22 RSV (PCR) Negative (Negative) 08/07/25 12:22 SARS-CoV-2 (PCR) Negative (Negative) 08/07/25 12:22 Blood Type O Positive 08/07/25 12:55 Rho(D) Type Rh positive 08/07/25 12:55 Antibody Screen Negative 08/07/25 12:55 Crossmatch See Detail 08/07/25 12:55 Radiology Impressions Chest/Abdomen/Pelvis CT 08/07/25 12:13 IMPRESSION: Wall thickening and mucous plugging in the left lower lobe with subsegmental consolidation/atelectasis. Emphysema. IMPRESSION: 1. Wall thickening of the duodenum which may represent duodenitis. Please correlate clinically. 2. Bilateral renal cysts with hyperdense left renal mass. This measures 5.6 x 4.5 cm without appreciable change. Suggest further evaluation with renal ultrasound. COMMENTS: Consistent with the [employer]'s Incidental Findings Committee white paper (J Am Tim Radiol 2018): Any incidental renal lesion less than 1 cm or classified as too small to characterize, or any incidental cystic renal lesion characterized as simple-appearing, is likely benign. No follow-up imaging is recommended for these lesions per consensus recommendations based on imaging criteria. Head CT 08/07/25 12:13 IMPRESSION: 1. Age-related atrophy with moderate to extensive patchy hypoattenuation throughout the deep white matter with small focal hypodensities in the subinsular white matter bilaterally, right greater than left. 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 An area of acute ischemia is difficult to exclude given this degree of patchy hypodensity. If clinically indicated, MRI may be helpful for further evaluation. 2. No acute intracranial hemorrhage or significant mass effect seen. 3. Mildly displaced fractures of the nasal spine, which could be acute or chronic. Please correlate clinically. Chest X-Ray 08/07/25 15:12 IMPRESSION: Interval placement of a left jugular central line in good position. No significant pneumothorax seen. Recent Clincial Data Last Vital Signs Temp 97.5 F L 08/10/25 07:00 Pulse 105 H 08/10/25 08:00 Resp 17 08/10/25 08:00 BP 136/94 08/10/25 08:00 Pulse Ox 100 08/10/25 08:00 O2 Del Method Room Air 08/10/25 06:00 O2 Flow Rate 4 08/09/25 09:53 Vital Signs Temp Pulse Resp BP Pulse Ox O2 Del Method 08/10/25 08:00 105 H 17 136/94 100 08/10/25 07:09 99 20 H 99 08/10/25 07:00 97.5 F L 99 13 154/89 98 08/10/25 06:54 101 H 21 H 136/94 08/10/25 06:37 98.2 F 101 H 17 154/89 97 08/10/25 06:00 154/89 98 Room Air 08/10/25 06:00 96 08/10/25 05:00 97 22 H 159/105 96 08/10/25 04:00 98.2 F 83 24 H 136/94 93 Room Air 08/10/25 03:00 86 21 H 164/94 97 08/10/25 02:16 104 H 21 H 164/94 92 08/10/25 01:00 99 20 H 160/101 95 08/10/25 00:00 97.8 F 101 H 21 H 146/96 94 Room Air 08/09/25 23:00 97 22 H 157/102 92 08/09/25 22:00 90 08/09/25 22:00 92 21 H 188/104 97 Room Air 08/09/25 21:00 98 23 H 156/97 96 Intake & Output/Weight 08/08/25 08/09/25 08/10/25 08/11/25 06:59 06:59 06:59 06:59 Intake Total 7236.694 / 7236.694 4797.792 / 4797.792 2431 / 2431 0 / 0 Output Total 3825 / 3825 6100 / 6100 4000 / 4000 Balance 3411.694 / 3411.694 -1302.208 / -1302.208 -1569 / -1569 0 / 0 Weight 62.913 kg 63.14 kg 66.088 kg Vitals Last Vital Signs Temp 97.5 F L 08/10/25 07:00 Pulse 105 H 08/10/25 08:00 Resp 17 08/10/25 08:00 BP 136/94 08/10/25 08:00 Pulse Ox 100 08/10/25 08:00 O2 Del Method Room Air 08/10/25 06:00 O2 Flow Rate 4 08/09/25 09:53 TS Medications Medications Albuterol Sulfate (Albuterol 2.5 Mg/3 Ml Neb) 2.5 mg INHALATION Q6H.RESP PRN PRN Reason: SHORTNESS OF BREATH Sodium Chloride (Sodium Chloride 0.9%) 1,000 mls @ 50 mls/hr IV .Q20H [facility] Last Admin: 08/09/25 13:40 Dose: 50 mls/hr Octreotide Acetate 500 mcg/ (Sodium Chloride) 101 mls @ 10.1 mls/hr IV .Q10H [facility] Last Admin: 08/10/25 05:52 Dose: 50 mcg/hr, 10.1 mls/hr Lisinopril (Lisinopril 20 Mg Tablet) 40 mg PO DAILY [facility] Last Admin: 08/09/25 21:30 Dose: 40 mg Nicotine (Nicotine 21 Mg Patch) 1 patch TRANSDERMA DAILY [facility] Last Admin: 08/10/25 05:52 Dose: 1 patch Ondansetron HCl (Ondansetron 2 Mg/Ml Sdv 2 Ml) 4 mg IVP Q6H PRN PRN Reason: NAUSEA AND VOMITING Last Admin: 08/09/25 09:21 Dose: 4 mg Pantoprazole Sodium (Pantoprazole 40 Mg Sdv) 40 mg IVP BID [facility] Last Admin: 08/10/25 05:52 Dose: 40 mg Sodium Chloride (Sodium Chloride 0.9% 100 Ml Bag) 50 ml IV PRN PRN PRN Reason: Blood transfusion prime and flush Stop: 08/11/25 05:36 Sucralfate (Sucralfate 1 Gm/10 Ml Oral Liq Udc) 1 gm PO AC&BEDTIME [facility] Last Admin: 08/10/25 07:53 Dose: 1 gm Discontinued Medications Sodium Chloride (Sodium Chloride 0.9%) 2,259 mls @ 2,259 mls/hr 30 ml/kg infuse over 1 hr (2259 ml) IV .Q1H ONE Stop: 08/07/25 13:11 Last Infusion: 08/07/25 13:45 Dose: Infused Piperacillin Sod/Tazobactam (Sod 3.375 gm/ Sodium Chloride) 50 mls @ 100 mls/hr IV ONCE ONE; Protocol Stop: 08/07/25 13:38 Last Infusion: 08/07/25 13:45 Dose: Infused Vancomycin HCl (Vancocin) 1,500 mg in 300 mls @ 200 mls/hr IV ONCE ONE Stop: 08/07/25 15:59 Last Admin: 08/07/25 16:25 Dose: Not Given Norepinephrine Bitartrate (Levophed) 4 mg in 250 mls @ 0 mls/hr IV .Q0M MICHELLE; Protocol Last Titration: 08/07/25 19:46 Dose: 0 mcg/min, 0 mls/hr Norepinephrine Bitartrate (Levophed) Confirm Administered Dose 4 mg in 250 mls @ as directed .ROUTE .STK-MED ONE Stop: 08/07/25 14:41 Last Infusion: 08/08/25 06:39 Dose: Infused Vancomycin HCl (Vancocin) 1,500 mg in 300 mls @ 200 mls/hr IV ONCE ONE Stop: 08/07/25 17:59 Last Infusion: 08/07/25 18:19 Dose: Infused Piperacillin Sod/Tazobactam (Sod 3.375 gm/ Sodium Chloride) 50 mls @ 12.5 mls/hr IV Q12H MICHELLE; Protocol Last Infusion: 08/08/25 10:43 Dose: Infused Octreotide Acetate 500 mcg/ (Sodium Chloride) 101 mls @ 10.1 mls/hr IV .Q10H [facility] Last Admin: 08/09/25 09:17 Dose: 50 mcg/hr, 10.1 mls/hr Sodium Bicarbonate 150 meq/ (Dextrose) 1,150 mls @ 150 mls/hr IV .Q7H40M ONE Stop: 08/08/25 04:19 Last Infusion: 08/08/25 05:52 Dose: Infused Dextrose (D5w) Confirm Administered Dose 1,000 mls @ as directed .ROUTE .STK-MED ONE Stop: 08/07/25 21:54 Lidocaine HCl (Xylocaine) Confirm Administered Dose 20 mls @ as directed .ROUTE .STK-MED ONE Stop: 08/08/25 09:16 Ketamine HCl (Ketamine 50 Mg/Ml Syr 1 Ml) Confirm Administered Dose 50 mg .ROUTE .STK-MED ONE Stop: 08/08/25 09:28 Octreotide Acetate (Octreotide 100 Mcg/Ml Sdv) Confirm Administered Dose 500 mcg .ROUTE .STK-MED ONE Stop: 08/08/25 22:54 Last Admin: 08/08/25 23:15 Dose: Not Given Octreotide Acetate (Octreotide 100 Mcg/Ml Sdv) 50 mcg IVP ONCE ONE Stop: 08/10/25 05:53 Last Admin: 08/10/25 06:15 Dose: 50 mcg Pantoprazole Sodium (Pantoprazole 40 Mg Sdv) 80 mg IVP ONCE ONE Stop: 08/07/25 16:31 Last Admin: 08/07/25 16:48 Dose: 80 mg Phenylephrine HCl (Phenylephrine 10 Mg/Ml Sdv 1 Ml) Confirm Administered Dose 10 mg .ROUTE .STK-MED ONE Stop: 08/08/25 09:19 Propofol (Propofol 10 Mg/Ml Sdv 20 Ml) Confirm Administered Dose 200 mg .ROUTE .STK-MED ONE Stop: 08/08/25 09:15 Sodium Bicarbonate (Sodium Bicarbonate 1 Meq/Ml Sdv 50ml) Confirm Administered Dose 150 meq .ROUTE .STK-MED ONE Stop: 08/07/25 21:49 Sodium Chloride (Sodium Chloride 0.9% 100 Ml Bag) 50 ml IV PRN PRN PRN Reason: Blood transfusion prime and flush Stop: 08/08/25 12:50 Sodium Chloride (Sodium Chloride 0.9% 100 Ml Bag) 50 ml IV PRN PRN PRN Reason: Blood transfusion prime and flush Stop: 08/08/25 14:43 Sodium Chloride (Sodium Chloride 0.9% 100 Ml Bag) 50 ml IV PRN PRN PRN Reason: Blood transfusion prime and flush Stop: 08/08/25 15:03 Sodium Chloride (Sodium Chloride 0.9% 100 Ml Bag) 50 ml IV PRN PRN PRN Reason: Blood transfusion prime and flush Stop: 08/08/25 17:03 Vancomycin HCl (Vancomycin 1,000 Mg Sdv (Pharmacy Mix)) 0 mg XX PRN PRN PRN Reason: Pharmacy to Dose Allergies No Known Allergies Allergy (Verified 07/31/25 15:55) Home Medications lisinopril 40 mg tablet 40 mg PO DAILY #30 tabs 04/27/25 [Rx Confirmed 08/07/25] umeclidinium 62.5 mcg-vilanterol 25 mcg/actuation powdr for inhalation (Anoro Ellipta) 1 inh inhalation DAILY #60 ea 06/21/25 [Rx Confirmed 08/07/25] gabapentin 100 mg capsule 100 mg PO TID 06/29/25 [History Confirmed 08/07/25] albuterol sulfate 90 mcg/actuation aerosol inhaler 1 inh inhalation QID PRN shortness of breath or wheezing #8.5 grams 07/12/25 [Rx Confirmed 08/07/25] methocarbamol 750 mg tablet 750 mg PO Q8H PRN muscle spasm #30 tabs 07/23/25 [Rx Confirmed 08/07/25] hydrocodone 5 mg-acetaminophen 325 mg tablet 1 tab PO Q6H PRN pain #14 tabs 02/17 [Rx Confirmed 08/07/25] prednisone 50 mg tablet 50 mg PO DAILY #5 tabs 07/31/25 [Rx Confirmed 08/07/25] naloxone 4 mg/actuation nasal spray (Narcan) See Rx Instructions .Route .COMPLEX 08/07/25 [History Confirmed 08/07/25] Discharge Plan Discharge Patient Disposition: Xfer Short-Term Hosp Condition: Stable Prescriptions: No Action gabapentin 100 mg capsule 100 mg PO TID lisinopril 40 mg tablet 40 mg PO DAILY Qty: 30 2RF Anoro Ellipta 62.5-25 mcg/actuation blister with device 1 inh inhalation DAILY Qty: 60 1RF albuterol sulfate 90 mcg/actuation HFA aerosol inhaler 1 inh inhalation QID PRN (Reason: shortness of breath or wheezing) Qty: 8.5 1RF methocarbamol 750 mg tablet 750 mg PO Q8H PRN (Reason: muscle spasm) Qty: 30 0RF prednisone 50 mg tablet 50 mg PO DAILY Qty: 5 0RF hydrocodone-acetaminophen 5-325 mg tablet 1 tab PO Q6H PRN (Reason: pain) Qty: 14 0RF naloxone [Narcan] 4 mg/actuation spray,non-aerosol See Rx Instructions .ROUTE .COMPLEX Rx Instructions: CALL 911. Use one full spray in one nostril one time. Repeat every 2-3 minutes as needed if no or minimal response. Discharge Order = DC NOW: Discharge Order (Routine); Ordered 08/10/25 Ordered By: Jessica Stephens Referrals: Rocky Fuentes MD [Primary Care Provider, Family Practice] Patient Instructions: Acute Wound Care (DC), GI Post Discharge Instructions w/ Anesthesia, Post Anesthesia Care Transfer Attestations Time Spent in Transfer Care: critical care time Critical Care Time (min): 35 Specific Discharge Activities: educating patient, educating and/or supporting family/caregiver, discussing with pcp/other providers, discussing with hospice case manager/social workers/dc planners, documenting/other paperwork and evaluating patient/reviewing data Status at Transfer: Cognitive status at transfer: cognitively intact ; Behavioral status at transfer: cooperative ; Functional status at transfer: other ; Overall status at transfer: patient is not back to baseline Quality Metrics Clinical Quality Measures [ No reported AMI, CVA or VTE this stay] Coding Level of Care Code Critical Care >/= 30 minutes Diagnoses Kely K92.1
--- NOTE | 2025-08-10 08:35 | PC.NURSE ---
Report called to Keerthi HADDAD at [facility] bed #[id number], phone number [phone]
--- NOTE | 2025-08-10 08:53 | PC.NURSE ---
Called and informed sister of transfer to another facility
--- NOTE | 2025-08-10 10:13 | PC.NURSE ---
Patient out the door with pauline pineda at 0930
--- NOTE | 2025-08-10 10:14 | PC.NURSE ---
All patient belongings sent with patient, including money witnessed by Angie Vincent plastic installer
== END 2025-08-10 09:30 | disposition short-term general hospital (02) | DRG 241 ==
LOC: ER 13:29 → ICU 14:10
PROVIDERS: Internal Medicine; Specialist; Admitting Provider Internal Medicine; Emergency Provider Physician Assistant; PCP Family Medicine; Visit Provider Student in an Organized Health Care Education/Training Program
PROC: 0DJ08ZZ Inspection of Upper Intestinal Tract, Via Natural or Artificial Opening Endoscopic (ICD-10-PCS; principal; 2025-08-08 10:00)
DX: K26.4 Chronic or unspecified duodenal ulcer with hemorrhage (principal); K29.81 Duodenitis with bleeding; N17.9 Acute kidney failure, unspecified; R68.0 Hypothermia, not associated with low environmental temperature; I12.9 Hypertensive chronic kidney disease with stage 1 through stage 4 chronic kidney disease, or unspecified chronic kidney disease; N18.32 Chronic kidney disease, stage 3b; J43.9 Emphysema, unspecified; D62 Acute posthemorrhagic anemia; R57.8 Other shock; I21.A1 Myocardial infarction type 2; F17.210 Nicotine dependence, cigarettes, uncomplicated; E87.20 Acidosis, unspecified
CPT/HCPCS: 36415; 36416; 36430; 36592; 36600; 43255; 70450; 71045; 71250; 74176; 80048; 80051; 80053; 80202; 80306; 80307; 81001; 82330; 82805; 82962; 83540; 83550; 83605; 83690; 83735; 83880; 84484; 85014; 85018; 85025; 85610; 85730; 86850; 86900; 86920; 86927; 87040; 87637; 93005; 93306; 94664; 96365; 96367; 99285; 99291; 99292; J2354; J2371; J2405; J2470; J2543; J2704; J3373; J7030; J7070; J9999; P9016; P9017; P9035; P9040